=== PATIENT | male | born 1985 | race African-American/Black ===

== ENCOUNTER 2022-03-13 17:53 | Inpatient (IN) | payer OTHER, SELFPAY ==
[2022-03-13 18:20] VITALS: BP 121/75; PULSE 103; TEMP 36.2
[2022-03-13 18:34] VITALS: BMI 24.4
[2022-03-13] MEDS: risperiDONE 0.5 MG TABLET 1.5 MG PO (21:58)
[2022-03-13] MEDS: traZODone HCL 50 MG TABLET PO (21:58)
--- NOTE | 2022-03-14 01:08 | PC.ADMIT ---
A single, 37 year old, Icelandic-speaking, male [facility] at 1815 following referral from [facility] and [facility] ED. Pt has a history of IPLOC at [facility] in 2011. Pt presented to [facility] ED on 03/10/22 with respiratory complaints of SOB and minimal Etoh misuse. Pt later c/o SI and HI with access to a gun. Pt was determined to need IPLOC. Pt was reassessed by [facility] after bed search was exhausted. Pt was oriented to person, place, situation. During his admission pt was unable to state his date of , saying I forget . Pt rated depression 0/10 and anxiety 5/10. Pt denied pain. Pt denied SI/HI after hesitating about HI. Pt would not say more about HI. Pt endorses auditory hallucinations of voices that command self harm at times. Pt says he can tell what is real and what is not. Pt denies VH. Pt reports a past history of self harm including burning self with cigarettes and cutting wrist. Pt denies current impulses to self harm. Pt says can seek out staff if having SI/HI or urges to self harm. Pt has been homeless off and on for several years and has been homeless for the past several months. Pt reports would like to get out of homelessness. Pt does not have a PCP, therapist of psychiatric medication prescriber. Pt has taken risperdal in the community and pt stated it has helped when at the right dosage. Pt reports mouth movements for a couple years and muscular tension that results in leg movements. Pt was calm and cooperative during admission though appeared fatigued. Medical issues include: non-insulin dependent diabetes for which pt says takes metformin. Pt reports he has SOB and thought may have asthma or COPD. Pt is a daily, one pack a day, cigarette smoker of 22 years who would like nicotine lozenge and nicotine patch ordered. [id number] done, admission orders obtained, safety tool and initial treatment plan done. Pt is resting in room on 15 minute safety checks at this time.
[2022-03-14 08:12] VITALS: BP 103/71; PULSE 88; RESP 16; TEMP 36.4; O2SAT 99
[2022-03-14] MEDS: Acetaminophen 325 MG TABLET 650 MG PO ×2 (08:44→15:38)
[2022-03-14 08:56] LABS: Estimated Average Glucose 212 mg/dL
[2022-03-14 09:18] LABS: Cholesterol 169 mg/dL; HDL Cholesterol 38 mg/dL; LDL Cholesterol Calculated 91 mg/dl; Magnesium 1.9 mg/dL (1.6-2.6); Triglycerides 200 mg/dL
[2022-03-14 09:40] LABS: Free T4 (Free Thyroxine) 0.98 ng/dL (0.71-1.85); Thyroid Stimulating Hormone 0.77 uIU/mL (0.32-4.0)
[2022-03-14 10:18] LABS: Folate 9.9 ng/mL (> or = 4.0); Vitamin B12 618 pg/mL (200-900)
[2022-03-14 17:12] VITALS: BP 119/67; PULSE 85; RESP 16; TEMP 36.1; O2SAT 97
--- NOTE | 2022-03-14 18:58 | HO.PSYADMNOT ---
HPI Date of Service: 03/14/22 Chief Complaint: Schizophrenia Sources of Information: patient interviewed, chart reviewed and crisis/core team assessment reviewed HPI Subjective Notes: Strange Warning Healthcare Proxy: No Guardianship: No Medical Problems Affecting Mental Status: No Narrative: Luan is a 37 y.o. male who carries a dx of schizophrenia. He presented to [facility] ED on 03/10/2022 due to SI and HI with access to a gun, threatened to shoot himself (brother lives in [place] and has a fun). Pt endorsed sx of depression and anxiety. During evaluation he presented as internally preoccupied and disclosed AH. Has been adherent on Risperdal 1 mg and this was increased to 1.5 mg QHS at [facility]. However, has long history of med non-adherence and was previously on Risperdal up to 4 mg daily (last fill 07/2021). Utox positive for cocaine. EKG showed NSR, QTc 393. Per SCOOTER whittaker, pt initially presented to [facility] ED on 03/10/22 via ambulance after he called 911 at [facility] due to SOB. He reported passive SI and HI. Pt is homeless, was at [facility]. He was re-assessed on 03/13/22 due to reporting SI and AH telling him to harm himself and that ?they are listening.? Reviewed past notes, pt has hx of presenting to crisis with self dialoging, waking up at night and yelling at the top of his voice obscene language. Past Psychiatric History: -Hx of IPLOC at [facility] (dates unknown), hx of decompensation in the context of non-adherence. Medical Evaluation Reviewed: Yes [facility] Family History: -Bio mom: schizophrenia -Bio dad: alcohol use disorder Social History: -Born and raised in [place], [place], has bio parents and sister. Substance History: -Cocaine: last used 03/09/2022 Diagnostics Vital Signs (24Hr): Vital Signs - 24 hr 03/14/22 08:12 03/14/22 17:12 Temperature 97.6 F 97 F Pulse Rate 88 85 Respiratory Rate 16 16 Blood Pressure 103/71 119/67 Pulse Oximetry 99 97 Oxygen Delivery Method Room Air Room Air BMI result Body Mass Index 24.4 Labs Labs: Laboratory Results - last 48 hr 03/14/22 03/14/22 03/14/22 08:10 08:10 08:10 Estimat Average Glucose 212 Hemoglobin A1c % 9.0 Magnesium 1.9 Triglycerides 200 Cholesterol 169 LDL Cholesterol, Calc 91 HDL Cholesterol 38 Vitamin B12 618 Folate 9.9 TSH 0.77 Free T4 0.98 Meds/Allergies Allergies Allergies Allergy/AdvReac Type Severity Reaction Status Date / Time codeine AdvReac Unknown Verified 03/13/22 18:33 Mental Status Exam Mental Status Exam Narrative: Pt is asleep, declines interview. Guarded, difficult to engage. No psychomotor agitation. Denies SI/SIB/HI upon inquiry. Endorses AH, denies VH, paranoid delusional thought content. Thoughts are disorganized, internally preoccupied. No known cognitive or memory impairment. Insight/ Judgment poor. Assessment & Plan Assessment & Plan (1) Schizophrenia, chronic condition: Status: Acute Code(s): F20.9 - Schizophrenia, unspecified Plan Luan is a 37 y.o. male who carries a dx of schizophrenia. He presented to [facility] ED on 03/10/2022 due to SI and HI with access to a gun, threatened to shoot himself (brother lives in [place] and has a fun). Pt endorsed sx of depression and anxiety. During evaluation he presented as internally preoccupied and disclosed AH. Has been adherent on Risperdal 1 mg and this was increased to 1.5 mg QHS at [facility]. However, has long history of med non-adherence and was previously on Risperdal up to 4 mg daily (last fill 07/2021). Utox positive for cocaine. EKG showed NSR, QTc 393. Plan: Increase risperdal to 2 mg HS and 1 mg daily for psychotic sx. Obtain collateral contacts. Continue assessment and engagement. Q15 min safety checks, CV Monitor response to medications. Monitor for safety in the milieu. Discharge on stabilization. Patient seen. Chart reviewed. Discussed with team. Obtain collateral contact info?as needed Patient educated on: diagnosis, medication risk/benefits and therapeutic strategies Reason for continued inpatient stay Substantial Risk for: inability to function, rapid decompensation and med/psych decompensation
[2022-03-14] MEDS: risperiDONE 0.5 MG TABLET 1.5 MG PO (19:15)
[2022-03-14] MEDS: Nicotine 21 MG PATCH.TD24 TRANSDERMA (19:16)
[2022-03-15 08:19] VITALS: BP 102/64; PULSE 76; RESP 16; TEMP 36.6; O2SAT 99
[2022-03-15] MEDS: Nicotine 21 MG PATCH.TD24 TRANSDERMA (08:30)
[2022-03-15] MEDS: risperiDONE 1 MG TABLET PO (08:30)
[2022-03-15] MEDS: Acetaminophen 325 MG TABLET 650 MG PO ×2 (08:31→14:21)
[2022-03-15] MEDS: hydrOXYzine HCL 25 MG TABLET PO (08:33)
[2022-03-15 09:26] LABS: Estimated Average Glucose 214 mg/dL; Hemoglobin A1c % 9.1 %
[2022-03-15 09:47] LABS: Cholesterol 177 mg/dL; HDL Cholesterol 42 mg/dL; LDL Cholesterol Calculated 95 mg/dl; Magnesium 1.8 mg/dL (1.6-2.6); Triglycerides 201 mg/dL
[2022-03-15 10:37] LABS: Folate 11.6 ng/mL (> or = 4.0); Vitamin B12 708 pg/mL (200-900)
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
[2022-03-15] MEDS: risperiDONE 2 MG TABLET PO (22:10)
[2022-03-15] MEDS: LORazepam 1 MG TABLET 2 MG PO (23:47)
[2022-03-15] MEDS: HaloperidoL 5 MG TABLET PO (23:47)
[2022-03-16 06:00] VITALS: BP 132/90; PULSE 101; TEMP 36.6; O2SAT 98
[2022-03-16] MEDS: Nicotine 21 MG PATCH.TD24 TRANSDERMA (09:05)
[2022-03-16] MEDS: risperiDONE 1 MG TABLET PO (09:06)
--- NOTE | 2022-03-16 09:23 | HO.PSYCHPN ---
Subjective Subjective Date of Service: 03/16/22 Reason For Visit: Schizophrenia Interim History: Patient wearing towel on his head. Cooperative though distracted and seems internally preoccupied Patient reports that mood is better and that he is all right. Denies SI or HI. Auditory hallucinations remain however they are less and he feels a getting more able to ignore them. Has some trouble sleeping and says that he has been diagnosed with sleep apnea in the past but does not a CPAP. He also agrees to clonidine at bedtime to help with anxiety. To consolidate medications agrees to make Risperdal at bedtime. During the day patient says that hydroxyzine has been helpful and asks for it to be increased a bit. Mental Status Exam Mental Status Exam Narrative: Pt is alert and oriented; behavior is cooperative, distracted, calm; patient is not in distress; dressed in casual attire wearing a towel around his head, adequate hygiene; mood is described as all right and affect a little blunted, distracted; eye contact appropriate; Speech is with some latency; can be normal rate, volume and prosody and not pressured; psychomotor retardation present; thought process is goal directed but interfered with by some thought blocking; Thought content is on tx, dealing with symptoms; otherwise pertinent to relevant topics; denies delusional content, paranoid ideations; denies any SI/HI. Patient does appear to be internally preoccupied; continues to have auditory hallucinations however they have lessened in intensity. Patients insight and judgment are impaired but adequate. Diagnostics Vital Signs (24Hr): BMI result Body Mass Index 24.4 Labs Labs: Laboratory Results - last 48 hr 03/14/22 03/14/22 03/15/22 08:10 08:10 08:54 Estimat Average Glucose 214 Hemoglobin A1c % 9.1 Magnesium Triglycerides Cholesterol LDL Cholesterol, Calc HDL Cholesterol Vitamin B12 618 Folate 9.9 TSH 0.77 Free T4 0.98 03/15/22 03/15/22 08:54 08:54 Estimat Average Glucose Hemoglobin A1c % Magnesium 1.8 Triglycerides 201 Cholesterol 177 LDL Cholesterol, Calc 95 HDL Cholesterol 42 Vitamin B12 708 Folate 11.6 TSH 0.70 Free T4 Medications Medications Current Medications Acetaminophen (Acetaminophen 325 Mg Tablet) 650 mg PO Q6H PRN PRN Reason: Headache/Pain Mild Scale (1-3) Last Admin: 03/15/22 14:21 Dose: 650 mg Al Hydroxide/Mg Hydroxide (Magnesium Hydrox/Alum Hydrox 30 Ml Oral.Susp) 30 ml PO Q6H PRN PRN Reason: Heartburn/Nausea Diphenhydramine HCl (Diphenhydramine Hcl 25 Mg Capsule) 50 mg PO Q6H PRN PRN Reason: agitation Haloperidol (Haloperidol 5 Mg Tablet) 5 mg PO Q6H PRN PRN Reason: agitation, psychosis Last Admin: 03/15/22 23:47 Dose: 5 mg Hydroxyzine HCl (Hydroxyzine Hcl 25 Mg Tablet) 25 mg PO Q6H PRN PRN Reason: Anxiety Last Admin: 03/15/22 08:33 Dose: 25 mg Lorazepam (Lorazepam 1 Mg Tablet) 2 mg PO Q6H PRN PRN Reason: agitation, only with haldol Last Admin: 03/15/22 23:47 Dose: 2 mg Magnesium Hydroxide (Milk Of Magnesia 30 Ml Oral.Susp) 30 ml PO DAILY PRN PRN Reason: Constipation Nicotine (Nicotine 21 Mg Patch.Td24) 21 mg TRANSDERMA DAILY [facility] Last Admin: 03/16/22 09:05 Dose: 21 mg Nicotine Polacrilex (Nicotine Polacrilex 2 Mg Gum) 4 mg BUCCAL Q2H PRN PRN Reason: nicotine withdrawal Risperidone (Risperidone 2 Mg Tablet) 2 mg PO BEDTIME [facility] Last Admin: 03/15/22 22:10 Dose: 2 mg Risperidone (Risperidone 1 Mg Tablet) 1 mg PO DAILY [facility] Last Admin: 03/16/22 09:06 Dose: 1 mg Trazodone HCl (Trazodone Hcl 50 Mg Tablet) 50 mg PO BEDTIME PRN PRN Reason: Insomnia Last Admin: 03/13/22 21:58 Dose: 50 mg Allergies Allergies Allergy/AdvReac Type Severity Reaction Status Date / Time codeine AdvReac Unknown Verified 03/13/22 18:33 Assessment & Plan Assessment & Plan (1) Schizophrenia, chronic condition: Status: Acute Code(s): F20.9 - Schizophrenia, unspecified Plan Luan is a 37 y.o. male who carries a dx of schizophrenia. He presented to [facility] ED on 03/10/2022 due to SI and HI with access to a gun, threatened to shoot himself (brother lives in [place] and has a fun). Pt endorsed sx of depression and anxiety. During evaluation he presented as internally preoccupied and disclosed AH. Has been adherent on Risperdal 1 mg and this was increased to 1.5 mg QHS at [facility]. However, has long history of med non-adherence and was previously on Risperdal up to 4 mg daily (last fill 07/2021). Utox positive for cocaine. EKG showed NSR, QTc 393. 03/16 patient remains internally preoccupied, with thought blocking; reports continued auditory hallucinations however he says they have lessened in their intensity and he is working on ignoring them. Denies any SI or HI and says all those thoughts and feelings of fully resolved. Said mood is better. Although symptoms have improved, he remains with problematic level of symptoms and needs further titration of medication. PLAN: Q15 min safety checks, CV Risperdal 3 mg q.h.s. (consolidated to make medication adherence easier); will increase to 4 mg for continued psychotic symptoms Clonidine 0.1 mg q.h.s. for nighttime anxiety Monitor response to medications. Monitor for safety in the milieu. Discharge on stabilization. Patient seen. Chart reviewed. Discussed with team. Obtain collateral contact info?as needed I spent minutes with the patient and/or on the patient floor today, greater than?50% of which was spent counseling/coordinating care. Patient educated on: diagnosis and medication risk/benefits Informed Consent: understands and further education needed Reason for contiued inpatient stay Substantial Risk for: rapid decompensation
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
[2022-03-16 18:00] VITALS: RESP 16
[2022-03-16] MEDS: cloNIDine HCL 0.1 MG TABLET PO ×2 (18:45→19:41)
[2022-03-16] MEDS: Benztropine Mesylate 0.5 MG TABLET PO (19:40)
[2022-03-16] MEDS: risperiDONE 3 MG TABLET PO (19:41)
--- NOTE | 2022-03-17 08:34 | P.PNPSI_ITS ---
Subjective Subjective Date of Service: 03/17/22 Reason For Visit: Schizophrenia Interim History: Patient says that he is in a good mood. No SI no HI. AH remains but he says he has mostly able to ignore them. He sleep in well enough at night. Patient says he would like to go to the [facility] in if possible. D[employer] discussed long- acting injectable but patient declines Mental Status Exam Mental Status Exam Narrative: Pt is alert and oriented; behavior is cooperative, distracted, calm; patient is not in distress; dressed in casual attire wearing a towel around his head, adequate hygiene; mood is described as good and affect a little blunted, distracted; eye contact appropriate; Speech is normal rate and no longer with latency; normal volume and prosody and not pressured; mild psychomotor retardation present; thought process is goal directed; little to no thought blocking; Thought content is on tx, plans post discharge, dealing with symptoms; otherwise pertinent to relevant topics; denies delusional content, paranoid ideations; denies any SI/HI. Patient does not appear internally preoccupied; continues to have auditory hallucinations however they have lessened in intensity and can be ignored. Patients insight and judgment are impaired but adequate. Diagnostics Vital Signs (24Hr): Vital Signs - 24 hr 03/16/22 18:00 Respiratory Rate 16 BMI result Body Mass Index 24.4 Labs Labs: Laboratory Results - last 48 hr 03/15/22 03/15/22 03/15/22 08:54 08:54 08:54 Estimat Average Glucose 214 Hemoglobin A1c % 9.1 Magnesium 1.8 Triglycerides 201 Cholesterol 177 LDL Cholesterol, Calc 95 HDL Cholesterol 42 Vitamin B12 708 Folate 11.6 TSH 0.70 Medications Medications Current Medications Acetaminophen (Acetaminophen 325 Mg Tablet) 650 mg PO Q6H PRN PRN Reason: Headache/Pain Mild Scale (1-3) Last Admin: 03/15/22 14:21 Dose: 650 mg Al Hydroxide/Mg Hydroxide (Magnesium Hydrox/Alum Hydrox 30 Ml Oral.Susp) 30 ml PO Q6H PRN PRN Reason: Heartburn/Nausea Benztropine Mesylate (Benztropine Mesylate 0.5 Mg Tablet) 0.5 mg PO BID ASHLEY Last Admin: 03/16/22 19:40 Dose: 0.5 mg Clonidine HCl (Clonidine Hcl 0.1 Mg Tablet) 0.1 mg PO BEDTIME ASHLEY; Protocol Last Admin: 03/16/22 19:41 Dose: 0.1 mg Clonidine HCl (Clonidine Hcl 0.1 Mg Tablet) 0.1 mg PO Q4H PRN; Protocol PRN Reason: anxiety Hydroxyzine HCl (Hydroxyzine Hcl 50 Mg Tablet) 50 mg PO Q4H PRN PRN Reason: Anxiety Magnesium Hydroxide (Milk Of Magnesia 30 Ml Oral.Susp) 30 ml PO DAILY PRN PRN Reason: Constipation Multi-Ingred Cream/Lotion/Oil/Oint (Mineral Oil/Petrolatum,White 106 Gm Tube) 1 appl TOPICAL TID PRN; Protocol PRN Reason: dry skin Nicotine (Nicotine 21 Mg Patch.Td24) 21 mg TRANSDERMA DAILY [facility] Last Admin: 03/16/22 09:05 Dose: 21 mg Nicotine Polacrilex (Nicotine Polacrilex 2 Mg Gum) 4 mg BUCCAL Q2H PRN PRN Reason: nicotine withdrawal Risperidone (Risperidone 3 Mg Tablet) 3 mg PO BEDTIME ASHLEY Last Admin: 03/16/22 19:41 Dose: 3 mg Trazodone HCl (Trazodone Hcl 50 Mg Tablet) 50 mg PO BEDTIME PRN PRN Reason: Insomnia Last Admin: 03/13/22 21:58 Dose: 50 mg Allergies Allergies Allergy/AdvReac Type Severity Reaction Status Date / Time codeine AdvReac Unknown Verified 03/13/22 18:33 Assessment & Plan Assessment & Plan (1) Schizophrenia, chronic condition: Status: Acute Code(s): F20.9 - Schizophrenia, unspecified Plan Luan is a 37 y.o. male who carries a dx of schizophrenia. He presented to [facility] ED on 03/10/2022 due to SI and HI with access to a gun, threatened to shoot himself (brother lives in [place] and has a fun). Pt endorsed sx of depression and anxiety. During evaluation he presented as internally preoccupied and disclosed AH. Has been adherent on Risperdal 1 mg and this was increased to 1.5 mg QHS at [facility]. However, has long history of med non-adherence and was previously on Risperdal up to 4 mg daily (last fill 07/2021). Utox positive for cocaine. EKG showed NSR, QTc 393. 03/16 patient remains internally preoccupied, with thought blocking; reports continued auditory hallucinations however he says they have lessened in their intensity and he is working on ignoring them. Denies any SI or HI and says all those thoughts and feelings of fully resolved. Said mood is better. Although symptoms have improved, he remains with problematic level of symptoms and needs further titration of medication. 03/17 patient is improving and no longer has speech latency or obvious thought blocking; still has AH but he says they continue to listen and is able to ignore them; no SI or HI and overall in good mood, future oriented, talking about where he wants to go and hoping to get a job PLAN: Q15 min safety checks, CV Risperdal 4 mg q.h.s. (consolidated to make medication adherence easier); will increase to 4 mg for continued psychotic symptoms and as this was previous outpatient dose Clonidine 0.1 mg q.h.s. for nighttime anxiety Monitor response to medications. Monitor for safety in the milieu. Discharge on stabilization. Patient seen. Chart reviewed. Discussed with team. Obtain collateral contact info?as needed I spent minutes with the patient and/or on the patient floor today, greater than?50% of which was spent counseling/coordinating care. Patient educated on: diagnosis and medication risk/benefits Informed Consent: understands Reason for contiued inpatient stay Substantial Risk for: stable for discharge
[2022-03-17] MEDS: Benztropine Mesylate 0.5 MG TABLET PO ×2 (09:29→19:37)
[2022-03-17 14:00] VITALS: BP 135/66; PULSE 86; TEMP 36.1
[2022-03-17 17:22] VITALS: BP 124/80; PULSE 77; RESP 16; TEMP 36.6; O2SAT 98
[2022-03-17] MEDS: risperiDONE 2 MG TABLET 4 MG PO (19:36)
[2022-03-17] MEDS: cloNIDine HCL 0.1 MG TABLET PO (19:37)
[2022-03-17] MEDS: traZODone HCL 50 MG TABLET PO (19:37)
[2022-03-18] MEDS: Acetaminophen 325 MG TABLET 650 MG PO (02:30)
[2022-03-18 06:00] VITALS: BP 113/69; PULSE 83; RESP 18
[2022-03-18] MEDS: Benztropine Mesylate 0.5 MG TABLET PO ×2 (09:18→20:16)
--- NOTE | 2022-03-18 12:02 | P.PNPSI_ITS ---
Subjective Subjective Date of Service: 03/18/22 Reason For Visit: Schizophrenia Interim History: Patient says that he is in a good mood. No SI no HI. He is difficult to engage and guarded. He denies any complaints. Per nursing he appears to respond to internal stimuli. Behavior controlled on the unit. Review of Systems Review of Systems Yes all other systems are reviewed and are negative Mental Status Exam Mental Status Exam Narrative: Pt is alert and oriented; behavior is cooperative, distracted, calm; patient is not in distress; dressed in casual attire wearing a towel around his head, adequate hygiene; mood is described as good and affect a little blunted, distracted; eye contact appropriate; Speech is normal rate and no longer with latency; normal volume and prosody and not pressured; mild psychomotor retardation present; thought process is goal directed; little to no thought blocking; Thought content is on tx, plans post discharge, dealing with symptoms; otherwise pertinent to relevant topics; denies delusional content, paranoid ideations; denies any SI/HI. Patient does not appear internally preoccupied; continues to have auditory hallucinations however they have lessened in intensity and can be ignored. Patients insight and judgment are impaired but adequate. Diagnostics Vital Signs (24Hr): Vital Signs - 24 hr 03/17/22 14:00 03/17/22 17:22 03/18/22 06:00 Temperature 97 F 98 F Pulse Rate 86 77 83 Respiratory Rate 16 18 Blood Pressure 135/66 124/80 113/69 Pulse Oximetry 98 Oxygen Delivery Method Room Air BMI result Body Mass Index 24.4 Medications Medications Current Medications Acetaminophen (Acetaminophen 325 Mg Tablet) 650 mg PO Q6H PRN PRN Reason: Headache/Pain Mild Scale (1-3) Last Admin: 03/18/22 02:30 Dose: 650 mg Al Hydroxide/Mg Hydroxide (Magnesium Hydrox/Alum Hydrox 30 Ml Oral.Susp) 30 ml PO Q6H PRN PRN Reason: Heartburn/Nausea Benztropine Mesylate (Benztropine Mesylate 0.5 Mg Tablet) 0.5 mg PO BID ASHLEY Last Admin: 03/18/22 09:18 Dose: 0.5 mg Clonidine HCl (Clonidine Hcl 0.1 Mg Tablet) 0.1 mg PO BEDTIME ASHLEY; Protocol Last Admin: 03/17/22 19:37 Dose: 0.1 mg Clonidine HCl (Clonidine Hcl 0.1 Mg Tablet) 0.1 mg PO Q4H PRN; Protocol PRN Reason: anxiety Hydroxyzine HCl (Hydroxyzine Hcl 50 Mg Tablet) 50 mg PO Q4H PRN PRN Reason: Anxiety Magnesium Hydroxide (Milk Of Magnesia 30 Ml Oral.Susp) 30 ml PO DAILY PRN PRN Reason: Constipation Multi-Ingred Cream/Lotion/Oil/Oint (Mineral Oil/Petrolatum,White 106 Gm Tube) 1 appl TOPICAL TID PRN; Protocol PRN Reason: dry skin Nicotine (Nicotine 21 Mg Patch.Td24) 21 mg TRANSDERMA DAILY [facility] Last Admin: 03/18/22 09:19 Dose: Not Given Nicotine Polacrilex (Nicotine Polacrilex 2 Mg Gum) 4 mg BUCCAL Q2H PRN PRN Reason: nicotine withdrawal Risperidone (Risperidone 2 Mg Tablet) 4 mg PO BEDTIME [facility] Last Admin: 03/17/22 19:36 Dose: 4 mg Trazodone HCl (Trazodone Hcl 50 Mg Tablet) 50 mg PO BEDTIME PRN PRN Reason: Insomnia Last Admin: 03/17/22 19:37 Dose: 50 mg Allergies Allergies Allergy/AdvReac Type Severity Reaction Status Date / Time codeine AdvReac Unknown Verified 03/13/22 18:33 Assessment & Plan Assessment & Plan (1) Schizophrenia, chronic condition: Status: Acute Code(s): F20.9 - Schizophrenia, unspecified Plan Luan is a 37 y.o. male who carries a dx of schizophrenia. He presented to [facility] ED on 03/10/2022 due to SI and HI with access to a gun, threatened to shoot himself (brother lives in [place] and has a fun). Pt endorsed sx of depression and anxiety. During evaluation he presented as internally preoccupied and disclosed AH. Has been adherent on Risperdal 1 mg and this was increased to 1.[address] [facility]. However, has long history of med non-adherence and was previously on Risperdal up to 4 mg daily (last fill 07/2021). Utox positive for cocaine. EKG showed NSR, QTc 393. 03/16 patient remains internally preoccupied, with thought blocking; reports continued auditory hallucinations however he says they have lessened in their intensity and he is working on ignoring them. Denies any SI or HI and says all those thoughts and feelings of fully resolved. Said mood is better. Although symptoms have improved, he remains with problematic level of symptoms and needs further titration of medication. 03/17 patient is improving and no longer has speech latency or obvious thought blocking; still has AH but he says they continue to listen and is able to ignore them; no SI or HI and overall in good mood, future oriented, talking about where he wants to go and hoping to get a job 03/18: Continue current treatment plan. PLAN: Q15 min safety checks, CV Risperdal 4 mg q.h.s. (consolidated to make medication adherence easier); will increase to 4 mg for continued psychotic symptoms and as this was previous outpatient dose Clonidine 0.1 mg q.h.s. for nighttime anxiety Monitor response to medications. Monitor for safety in the milieu. Discharge on stabilization. Patient seen. Chart reviewed. Discussed with team. Obtain collateral contact info?as needed I spent minutes with the patient and/or on the patient floor today, greater than?50% of which was spent counseling/coordinating care. Reason for contiued inpatient stay Substantial Risk for: inability to function and rapid decompensation
[2022-03-18 18:00] VITALS: BP 123/77; PULSE 74; RESP 18; O2SAT 98
[2022-03-18] MEDS: cloNIDine HCL 0.1 MG TABLET PO (20:16)
[2022-03-18] MEDS: risperiDONE 2 MG TABLET 4 MG PO (20:16)
[2022-03-19 08:25] VITALS: BP 118/64; PULSE 67; RESP 16; TEMP 36.7; O2SAT 99
[2022-03-19] MEDS: Benztropine Mesylate 0.5 MG TABLET PO ×2 (09:04→21:57)
[2022-03-19] MEDS: Mineral Oil/Petrolatum,White 106 GM Tube 1 APPL TOPICAL (10:12)
--- NOTE | 2022-03-19 14:55 | HO.PSYCHPN ---
Subjective Subjective Date of Service: 03/19/22 Reason For Visit: Schizophrenia Interim History: Patient says that he is in a good mood. No SI no HI. Wondering when can he be discharged. Says he would go to a long term. Patient is calm generally and med compliant. He is heard self dialoguing in his room and laughing inappropriately at times responding to internal stimuli. He is difficult to engage and guarded. He denies any complaints. Behavior controlled on the unit. Medication Compliance: Yes Review of Systems Review of Systems Yes all other systems are reviewed and are negative Mental Status Exam Mental Status Exam Narrative: Pt is alert and oriented; behavior is cooperative, distracted, calm; patient is not in distress; dressed in casual attire wearing a towel around his head, adequate hygiene; mood is described as good and affect a little blunted, distracted; eye contact appropriate; Speech is normal rate and no longer with latency; normal volume and prosody and not pressured; mild psychomotor retardation present; thought process is goal directed; little to no thought blocking; Thought content is on tx, plans post discharge, dealing with symptoms; otherwise pertinent to relevant topics; denies delusional content, paranoid ideations; denies any SI/HI. Patient does not appear internally preoccupied; continues to have auditory hallucinations however they have lessened in intensity and can be ignored. Patients insight and judgment are impaired but adequate. Diagnostics Vital Signs (24Hr): Vital Signs - 24 hr 03/19/22 08:25 03/19/22 19:48 Temperature 98.1 F Pulse Rate 67 113 H Respiratory Rate 16 Blood Pressure 118/64 120/61 Pulse Oximetry 99 Oxygen Delivery Method Room Air BMI result Body Mass Index 24.4 Medications Medications Current Medications Acetaminophen (Acetaminophen 325 Mg Tablet) 650 mg PO Q6H PRN PRN Reason: Headache/Pain Mild Scale (1-3) Last Admin: 03/18/22 02:30 Dose: 650 mg Al Hydroxide/Mg Hydroxide (Magnesium Hydrox/Alum Hydrox 30 Ml Oral.Susp) 30 ml PO Q6H PRN PRN Reason: Heartburn/Nausea Benztropine Mesylate (Benztropine Mesylate 0.5 Mg Tablet) 0.5 mg PO BID ASHLEY Last Admin: 03/19/22 09:04 Dose: 0.5 mg Clonidine HCl (Clonidine Hcl 0.1 Mg Tablet) 0.1 mg PO BEDTIME ASHLEY; Protocol Last Admin: 03/18/22 20:16 Dose: 0.1 mg Clonidine HCl (Clonidine Hcl 0.1 Mg Tablet) 0.1 mg PO Q4H PRN; Protocol PRN Reason: anxiety Last Admin: 03/19/22 18:18 Dose: 0.1 mg Hydroxyzine HCl (Hydroxyzine Hcl 50 Mg Tablet) 50 mg PO Q4H PRN PRN Reason: Anxiety Last Admin: 03/19/22 18:17 Dose: 50 mg Magnesium Hydroxide (Milk Of Magnesia 30 Ml Oral.Susp) 30 ml PO DAILY PRN PRN Reason: Constipation Multi-Ingred Cream/Lotion/Oil/Oint (Mineral Oil/Petrolatum,White 106 Gm Tube) 1 appl TOPICAL TID PRN; Protocol PRN Reason: dry skin Last Admin: 03/19/22 10:12 Dose: 1 appl Nicotine (Nicotine 21 Mg Patch.Td24) 21 mg TRANSDERMA DAILY [facility] Last Admin: 03/19/22 09:16 Dose: Not Given Nicotine Polacrilex (Nicotine Polacrilex 2 Mg Gum) 4 mg BUCCAL Q2H PRN PRN Reason: nicotine withdrawal Risperidone (Risperidone 2 Mg Tablet) 4 mg PO BEDTIME ASHLEY Last Admin: 03/18/22 20:16 Dose: 4 mg Trazodone HCl (Trazodone Hcl 50 Mg Tablet) 50 mg PO BEDTIME PRN PRN Reason: Insomnia Last Admin: 03/17/22 19:37 Dose: 50 mg Allergies Allergies Allergy/AdvReac Type Severity Reaction Status Date / Time codeine AdvReac Unknown Verified 03/13/22 18:33 Assessment & Plan Assessment & Plan (1) Schizophrenia, chronic condition: Status: Acute Code(s): F20.9 - Schizophrenia, unspecified Plan Luan is a 37 y.o. male who carries a dx of schizophrenia. He presented to [facility] ED on 03/10/2022 due to SI and HI with access to a gun, threatened to shoot himself (brother lives in [place] and has a fun). Pt endorsed sx of depression and anxiety. During evaluation he presented as internally preoccupied and disclosed AH. Has been adherent on Risperdal 1 mg and this was increased to 1.5 mg QHS at [facility]. However, has long history of med non-adherence and was previously on Risperdal up to 4 mg daily (last fill 07/2021). Utox positive for cocaine. EKG showed NSR, QTc 393. 03/16 patient remains internally preoccupied, with thought blocking; reports continued auditory hallucinations however he says they have lessened in their intensity and he is working on ignoring them. Denies any SI or HI and says all those thoughts and feelings of fully resolved. Said mood is better. Although symptoms have improved, he remains with problematic level of symptoms and needs further titration of medication. 03/17 patient is improving and no longer has speech latency or obvious thought blocking; still has AH but he says they continue to listen and is able to ignore them; no SI or HI and overall in good mood, future oriented, talking about where he wants to go and hoping to get a job 03/18: Continue current treatment plan. 03/19: Continue current treatment plan. PLAN: Q15 min safety checks, CV Risperdal 4 mg q.h.s. (consolidated to make medication adherence easier); will increase to 4 mg for continued psychotic symptoms and as this was previous outpatient dose Clonidine 0.1 mg q.h.s. for nighttime anxiety Monitor response to medications. Monitor for safety in the milieu. Discharge on stabilization. Patient seen. Chart reviewed. Discussed with team. Obtain collateral contact info?as needed I spent minutes with the patient and/or on the patient floor today, greater than?50% of which was spent counseling/coordinating care. Reason for contiued inpatient stay Substantial Risk for: inability to function and rapid decompensation
--- NOTE | 2022-03-19 17:25 | PC.NURSE ---
Pt submitted a Three Day Notice on Monday 03/19 up on Thursday 03/22.
[2022-03-19] MEDS: hydrOXYzine HCL 50 MG TABLET PO (18:17)
[2022-03-19] MEDS: cloNIDine HCL 0.1 MG TABLET PO ×2 (18:18→21:56)
[2022-03-19 19:48] VITALS: BP 120/61; PULSE 113
[2022-03-19] MEDS: risperiDONE 2 MG TABLET 4 MG PO (21:57)
[2022-03-20 06:00] VITALS: BP 111/73; PULSE 85; RESP 18; TEMP 36.6; O2SAT 96
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
[2022-03-20] MEDS: Benztropine Mesylate 0.5 MG TABLET PO (08:56)
[2022-03-20] MEDS: Nicotine 21 MG PATCH.TD24 TRANSDERMA (08:56)
--- NOTE | 2022-03-20 13:15 | PC.NURSE ---
Patient was given one single use dose of Naltrexone for PRN use post discharge.
== END 2022-03-20 13:40 | disposition home or self-care (01) | DRG 750 ==
PROVIDERS: Registered Nurse; Admitting Provider Psychiatry & Neurology Psychiatry; Visit Provider Psychiatry & Neurology Psychiatry
DX: F20.9 Schizophrenia, unspecified (principal); R45.851 Suicidal ideations; R45.850 Homicidal ideations; Z59.02 Unsheltered homelessness; F17.210 Nicotine dependence, cigarettes, uncomplicated; Z71.6 Tobacco abuse counseling; Z88.5 Allergy status to narcotic agent; Z79.899 Other long term (current) drug therapy
CPT/HCPCS: 36415; 80061; 82607; 82746; 83036; 83735; 84439; 84443; 90792

== ENCOUNTER 2022-07-22 13:31 | Inpatient (IN) | payer OTHER, SELFPAY ==
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
[2022-07-22] MEDS: traZODone HCL 50 MG TABLET PO (20:50)
[2022-07-22] MEDS: hydrOXYzine HCL 25 MG TABLET PO (20:50)
[2022-07-22] MEDS: Acetaminophen 325 MG TABLET 650 MG PO (20:50)
[2022-07-23] MEDS: Acetaminophen 325 MG TABLET 650 MG PO ×2 (07:39→16:26)
[2022-07-23 08:06] LABS: Glucose, Whole Blood 506 mg/dL (60-115)
[2022-07-23 08:12] LABS: Alanine Aminotransferase 19 U/L (0-40); Albumin Level 3.8 g/dL (3.5-5.0); Alkaline Phosphatase 37 U/L (39-117); Anion Gap 14 (12-20); Aspartate Amino Transferase 9 U/L (5-37); Bilirubin Total 0.3 mg/dL (0.0-1.0); Blood Urea Nitrogen 23 mg/dL (9-16); Calcium 9.4 mg/dL (8.4-10.2); Carbon Dioxide 26 mmol/L (22-29); Chloride 99 mmol/L (96-108); Cholesterol 167 mg/dL; Estimated Glomerular Filt Rate 59; Glucose Fasting 504 mg/dL (60-99); HDL Cholesterol 39 mg/dL; LDL Cholesterol Calculated 116 mg/dl; Potassium 4.7 mmol/L (3.3-5.1); Sodium 134 mmol/L (135-145); Total Protein 6.5 g/dL (6.5-8.0); Triglycerides 63 mg/dL
--- NOTE | 2022-07-23 08:35 | PC.NURSE ---
Pt's fasting POC was 506, NSM contacted to start pt on sliding scale. Pt rec'd 10 units per sliding scale protocol. Hospitalist Alvarez contacted, no add'l orders at this time.
[2022-07-23] MEDS: metFORMIN HCl 500 MG TABLET PO ×2 (09:41→17:33)
[2022-07-23] MEDS: Insulin Glargine,Hum.rec.anlog 100 UNIT/ML 10 ML VIAL 15 UNIT SUBCUT ×2 (09:41→21:43)
[2022-07-23 09:46] VITALS: BP 101/74; PULSE 107; RESP 16; TEMP 36.1; O2SAT 97
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
[2022-07-23 12:48] LABS: Glucose, Whole Blood 461 mg/dL (60-115)
--- NOTE | 2022-07-23 12:57 | PC.NURSE ---
Pt's pre-lunch POC 461. Notified Samantha Davis and Hospitalist Heraclio. Gave Insulin lispro 10 units per sliding scale plus additional 5 units lispro as prescribed. Per Heraclio no addition orders.
[2022-07-23] MEDS: Insulin Lispro 100 UNIT/ML 3 ML VIAL SUBCUT ×6 (12:59→21:45)
[2022-07-23] MEDS: hydrOXYzine HCL 25 MG TABLET PO (16:25)
--- NOTE | 2022-07-23 16:32 | PC.NURSE ---
Pt signed 3-day notice of intent to leave [facility] with staff at 1630.
[2022-07-23 17:16] LABS: Glucose, Whole Blood 391 mg/dL (60-115)
[2022-07-23] MEDS: metFORMIN HCl 1,000 MG TABLET 1000 MG PO (17:34)
[2022-07-23 21:20] VITALS: BP 98/54; PULSE 72; TEMP 36.9
[2022-07-23 21:30] LABS: Glucose, Whole Blood 296 mg/dL (60-115)
[2022-07-23] MEDS: Benztropine Mesylate 0.5 MG TABLET PO (21:42)
[2022-07-23] MEDS: risperiDONE 1 MG TABLET PO (21:42)
[2022-07-23] MEDS: cloNIDine HCL 0.1 MG TABLET PO (21:42)
[2022-07-24 07:56] LABS: Glucose, Whole Blood 320 mg/dL (60-115)
[2022-07-24] MEDS: metFORMIN HCl 1,000 MG TABLET 1000 MG PO (08:34)
[2022-07-24] MEDS: Benztropine Mesylate 0.5 MG TABLET PO ×3 (08:34→21:13)
[2022-07-24] MEDS: metFORMIN HCl 500 MG TABLET PO ×2 (08:34→17:35)
[2022-07-24] MEDS: Insulin Glargine,Hum.rec.anlog 100 UNIT/ML 10 ML VIAL 15 UNIT SUBCUT (08:36)
[2022-07-24] MEDS: Insulin Lispro 100 UNIT/ML 3 ML VIAL SUBCUT ×6 (08:37→21:15)
[2022-07-24 08:48] VITALS: BP 89/63; PULSE 89; RESP 18; TEMP 36.4; O2SAT 100
[2022-07-24 12:02] LABS: Glucose, Whole Blood 270 mg/dL (60-115)
--- NOTE | 2022-07-24 13:43 | HO.PSYCHPN ---
Subjective Subjective Date of Service: 07/24/22 Reason For Visit: Unspec Schizophrenia Spectrum and Other Psychotic Interim History: Met with patient; discussed in teams; reviewed covering provider notes; discussed diabetes management with hospitalist AARON Patient remains with auditory hallucinations which bother him though they are little bit better; he denies any SI or HI at all. Patient says he is sleeping better. Patient has placed a 3 day notice saying he would like to discharge to a care home and names to of them. Discussed cocaine abuse but patient is vague in says he does not think he has been using, though he UDS is positive. Patient does however agree to get on long-acting injectable Invega Sustenna given the fact that Risperdal has been well tolerated in the past and he says it has been helpful for resolving AH. Discussed diabetes diagnosis and medication management. Patient says he does want to have medications for diabetes. Mental Status Exam Mental Status Exam Narrative: Pt is alert and oriented; behavior is cooperative, distracted, calm; patient is not in distress; dressed in casual attire, disheveled cloths, but adequate hygiene; mood is described as ok and affect a little blunted; eye contact appropriate; Speech is a little soft, but normal rate and prosody; no psychomotor retardation present; thought process is goal directed; thought content is on treatment and discharge; otherwise pertinent to relevant topics; denies delusional content, paranoid ideations; denies any SI/HI. Patient intermittently appears as internally preoccupied; continues to have auditory hallucinations however they have lessened in intensity; Patients insight and judgment are impaired but adequate. Diagnostics Vital Signs (24Hr): Vital Signs - 24 hr 07/23/22 21:20 07/24/22 08:48 Temperature 98.4 F 97.5 F Pulse Rate 72 89 Respiratory Rate 18 Blood Pressure 98/54 L 89/63 L Pulse Oximetry 100 Oxygen Delivery Method Room Air Labs 07/23/22 07:25 Labs: Laboratory Results - last 48 hr 07/23/22 07/23/22 07/23/22 07:25 08:02 12:44 Sodium 134 L Potassium 4.7 Chloride 99 Carbon Dioxide 26 Anion Gap 14 BUN 23 H Creatinine 1.36 Estim Creat Clear Calc TNP Estimated GFR 59 POC Glucose 506 H* 461 H* Fasting Glucose 504 H* Calcium 9.4 Total Bilirubin 0.3 AST 9 ALT 19 Alkaline Phosphatase 37 L Total Protein 6.5 Albumin 3.8 Triglycerides 63 Cholesterol 167 LDL Cholesterol, Calc 116 HDL Cholesterol 39 07/23/22 07/23/22 07/24/22 17:11 21:26 07:52 Sodium Potassium Chloride Carbon Dioxide Anion Gap BUN Creatinine Estim Creat Clear Calc Estimated GFR POC Glucose 391 H* 296 H 320 H Fasting Glucose Calcium Total Bilirubin AST ALT Alkaline Phosphatase Total Protein Albumin Triglycerides Cholesterol LDL Cholesterol, Calc HDL Cholesterol 07/24/22 11:58 Sodium Potassium Chloride Carbon Dioxide Anion Gap BUN Creatinine Estim Creat Clear Calc Estimated GFR POC Glucose 270 H Fasting Glucose Calcium Total Bilirubin AST ALT Alkaline Phosphatase Total Protein Albumin Triglycerides Cholesterol LDL Cholesterol, Calc HDL Cholesterol Medications Medications Current Medications Acetaminophen (Acetaminophen 325 Mg Tablet) 650 mg PO Q6H PRN PRN Reason: Headache/Pain Mild Scale (1-3) Last Admin: 07/23/22 16:26 Dose: 650 mg Al Hydroxide/Mg Hydroxide (Magnesium Hydrox/Alum Hydrox 30 Ml Oral.Susp) 30 ml PO Q6H PRN PRN Reason: Heartburn/Nausea Benztropine Mesylate (Benztropine Mesylate 0.5 Mg Tablet) 0.5 mg PO BID [facility] Last Admin: 07/24/22 08:34 Dose: 0.5 mg Clonidine HCl (Clonidine Hcl 0.1 Mg Tablet) 0.1 mg PO BEDTIME [facility]; Protocol Last Admin: 07/23/22 21:42 Dose: 0.1 mg Hydroxyzine HCl (Hydroxyzine Hcl 25 Mg Tablet) 25 mg PO Q6H PRN PRN Reason: Anxiety Last Admin: 07/23/22 16:25 Dose: 25 mg Insulin Glargine (Insulin Glargine,Hum.Rec.Anlog 100 Unit/Ml 10 Ml Vial) 15 unit SUBCUT BID [facility] Last Admin: 07/24/22 08:36 Dose: 15 unit Insulin Human Lispro (Insulin Lispro 100 Unit/Ml 3 Ml Vial) 0 unit SUBCUT QIDACHS [facility]; Protocol Last Admin: 07/24/22 12:24 Dose: 6 unit Insulin Human Lispro (Insulin Lispro 100 Unit/Ml 3 Ml Vial) 5 unit SUBCUT QIDACHS [facility] Last Admin: 07/24/22 12:24 Dose: 5 unit Magnesium Hydroxide (Milk Of Magnesia 30 Ml Oral.Susp) 30 ml PO DAILY PRN PRN Reason: Constipation Metformin HCl (Metformin Hcl 500 Mg Tablet) 500 mg PO BIDWM [facility] Last Admin: 07/24/22 08:34 Dose: 500 mg Metformin HCl (Metformin Hcl 1,000 Mg Tablet) 1,000 mg PO BIDWM [facility] Last Admin: 07/24/22 08:34 Dose: 1,000 mg Nicotine Polacrilex (Nicotine Polacrilex 2 Mg Gum) 2 mg BUCCAL Q2H PRN PRN Reason: Nicotine Cravings Risperidone (Risperidone 1 Mg Tablet) 1 mg PO BEDTIME [facility] Last Admin: 07/23/22 21:42 Dose: 1 mg Trazodone HCl (Trazodone Hcl 50 Mg Tablet) 50 mg PO BEDTIME MRX1 PRN PRN Reason: Insomnia Last Admin: 07/22/22 20:50 Dose: 50 mg Allergies Allergies Allergy/AdvReac Type Severity Reaction Status Date / Time codeine AdvReac Unknown Verified 03/13/22 18:33 Assessment & Plan Assessment & Plan (1) Schizophrenia, chronic condition: Status: Acute Code(s): F20.9 - Schizophrenia, unspecified Assessment and Plan: resume medications might do better on injectable monthly med (2) Diabetes: Status: Acute Code(s): E11.9 - Type 2 diabetes mellitus without complications Assessment and Plan: restared metformin and still on sliding scale for now (3) Cannabis abuse: Status: Acute Code(s): F12.10 - Cannabis abuse, uncomplicated (4) Cocaine abuse: Status: Acute Code(s): F14.10 - Cocaine abuse, uncomplicated Plan Patient is a 37-year-old male with history of schizophrenia, cocaine/substance abuse, diabetes and history of lack of follow-up who presents for command auditory hallucinations, wanting treatment. Hospital course: 07/25 patient agrees to getting on Invega Sustenna; good behavioral and impulse control; denies any SI or HI Impression: Patient was restarted on Risperdal and Cogentin; agrees to long-acting injectable which is preferable given his long history of lack of follow-up and not adherence. Patient also started on medication for diabetes. Patient lives in itinerant, wondering lifestyle and seldom attends to follow up and it is unlikely that he will be able to follow current diabetic regimen; will work with hospitalist to simplify regimen to something that is achievable and with a better chance of adherence than current regimen. plan: 3 day notice Q 15 minute checks Given long-acting Invega Sustenna 234 mg IM on 07/24 Hospitalist notes: #Davila, bilateral hands -Appear old, well healing without infection -No intervention needed at this time -Moisturize hands and discourage pt from picking skin to prevent infection #Insulin dependent type 2 diabetes-with hyperglycemia -Hgb A1c 9.1 -Glucose levels remain uncontrolled -Increase lantus to 18 units BID -Continue SSI and metformin -POC glucose -Recommend diabetic diet #Diabetic neuropathy -Add gabapentin starting at 100mg TID, titrate as tolerated -Recommend pt wear shoes and socks. Was found with tape on bottom of feet which he was unaware of and could not feel me remove #Cardiomyopathy, suspect dilated given drug use -Recommend outpt echo and cards follow up -Monitor BP Patient educated on: diagnosis, medication risk/benefits, substance abuse and medical condition Informed Consent: understands and further education needed Reason for contiued inpatient stay Substantial Risk for: rapid decompensation Time Spent With Patient Time: Total time managing care of this patient today ____ minutes.
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
[2022-07-24] MEDS: Gabapentin 100 MG CAPSULE PO ×2 (15:38→21:13)
[2022-07-24] MEDS: Paliperidone Palmitate 234 MG/1.5 ML SYRINGE IM (15:44)
[2022-07-24 21:06] LABS: Glucose, Whole Blood 332 mg/dL (60-115)
[2022-07-24] MEDS: risperiDONE 1 MG TABLET PO (21:13)
[2022-07-24] MEDS: Insulin Glargine,Hum.rec.anlog 100 UNIT/ML 10 ML VIAL 18 UNIT SUBCUT (21:14)
[2022-07-25 06:00] VITALS: BP 112/60; PULSE 64; RESP 14; TEMP 36.1
[2022-07-25 08:07] LABS: Glucose, Whole Blood 277 mg/dL (60-115)
[2022-07-25] MEDS: Insulin Lispro 100 UNIT/ML 3 ML VIAL SUBCUT ×8 (08:35→20:10)
[2022-07-25] MEDS: Insulin Glargine,Hum.rec.anlog 100 UNIT/ML 10 ML VIAL 18 UNIT SUBCUT ×2 (08:35→19:17)
[2022-07-25] MEDS: Gabapentin 100 MG CAPSULE PO ×3 (08:37→19:16)
[2022-07-25] MEDS: metFORMIN HCl 500 MG TABLET PO ×2 (08:37→18:43)
[2022-07-25] MEDS: Benztropine Mesylate 0.5 MG TABLET PO ×2 (08:37→19:16)
--- NOTE | 2022-07-25 11:18 | P.PNPSI_ITS ---
Subjective Subjective Date of Service: 07/25/22 Reason For Visit: Unspec Schizophrenia Spectrum and Other Psychotic Interim History: met with patient; discussed in teams Patient reports continued auditory hallucinations to hurt himself and hurt other people. He says he does not think that will happen; sometimes he will burn his fingers in response. Patient agreed to stay longer for symptoms to resolve. Discussed diabetic medications and patient says that he does plan on continuing to take them and would like of PCP for follow-up. Mental Status Exam Mental Status Exam Narrative: Pt is alert and oriented; behavior is cooperative, distracted, calm; patient is not in distress; dressed in casual attire, adequate hygiene; mood is described as ok and affect a little blunted; eye contact minimal; Speech is normal volume, rate and prosody; no psychomotor retardation present; thought process is goal directed; thought content is on dealing with AH; on treatment and di scharge; otherwise pertinent to relevant topics; denies delusional content, paranoid ideations; has thoughts about SI and HI, due to AH; no intent or plans. Patient intermittently appears as internally preoccupied; continues to have auditory hallucinations however they have lessened in intensity; Patients insight and judgment are impaired. Diagnostics Vital Signs (24Hr): Vital Signs - 24 hr 07/25/22 06:00 Temperature 97 F Pulse Rate 64 Respiratory Rate 14 Blood Pressure 112/60 Labs 07/23/22 07:25 Labs: Laboratory Results - last 48 hr 07/23/22 07/23/22 07/23/22 12:44 17:11 21:26 POC Glucose 461 H* 391 H* 296 H 07/24/22 07/24/22 07/24/22 07:52 11:58 21:01 POC Glucose 320 H 270 H 332 H 07/25/22 08:04 POC Glucose 277 H Medications Medications Current Medications Acetaminophen (Acetaminophen 325 Mg Tablet) 650 mg PO Q6H PRN PRN Reason: Headache/Pain Mild Scale (1-3) Last Admin: 07/23/22 16:26 Dose: 650 mg Al Hydroxide/Mg Hydroxide (Magnesium Hydrox/Alum Hydrox 30 Ml Oral.Susp) 30 ml PO Q6H PRN PRN Reason: Heartburn/Nausea Benztropine Mesylate (Benztropine Mesylate 0.5 Mg Tablet) 0.5 mg PO BID [facility] Last Admin: 07/25/22 08:37 Dose: 0.5 mg Clonidine HCl (Clonidine Hcl 0.1 Mg Tablet) 0.1 mg PO BEDTIME [facility]; Protocol Last Admin: 07/24/22 21:14 Dose: Not Given Gabapentin (Gabapentin 100 Mg Capsule) 100 mg PO TID [facility] Last Admin: 07/25/22 08:37 Dose: 100 mg Hydroxyzine HCl (Hydroxyzine Hcl 25 Mg Tablet) 25 mg PO Q6H PRN PRN Reason: Anxiety Last Admin: 07/23/22 16:25 Dose: 25 mg Insulin Glargine (Insulin Glargine,Hum.Rec.Anlog 100 Unit/Ml 10 Ml Vial) 18 unit SUBCUT BID [facility] Last Admin: 07/25/22 08:35 Dose: 18 unit Insulin Human Lispro (Insulin Lispro 100 Unit/Ml 3 Ml Vial) 0 unit SUBCUT QIDACHS [facility]; Protocol Last Admin: 07/25/22 08:35 Dose: 6 unit Insulin Human Lispro (Insulin Lispro 100 Unit/Ml 3 Ml Vial) 5 unit SUBCUT QIDACHS [facility] Last Admin: 07/25/22 08:36 Dose: 5 unit Magnesium Hydroxide (Milk Of Magnesia 30 Ml Oral.Susp) 30 ml PO DAILY PRN PRN Reason: Constipation Metformin HCl (Metformin Hcl 500 Mg Tablet) 500 mg PO BIDWM [facility] Last Admin: 07/25/22 08:37 Dose: 500 mg Nicotine Polacrilex (Nicotine Polacrilex 2 Mg Gum) 2 mg BUCCAL Q2H PRN PRN Reason: Nicotine Cravings Risperidone (Risperidone 1 Mg Tablet) 1 mg PO BEDTIME [facility] Last Admin: 07/24/22 21:13 Dose: 1 mg Trazodone HCl (Trazodone Hcl 50 Mg Tablet) 50 mg PO BEDTIME MRX1 PRN PRN Reason: Insomnia Last Admin: 07/22/22 20:50 Dose: 50 mg Allergies Allergies Allergy/AdvReac Type Severity Reaction Status Date / Time codeine AdvReac Unknown Verified 03/13/22 18:33 Assessment & Plan Assessment & Plan (1) Schizophrenia, chronic condition: Status: Acute Code(s): F20.9 - Schizophrenia, unspecified Assessment and Plan: resume medications might do better on injectable monthly med (2) Diabetes: Status: Acute Code(s): E11.9 - Type 2 diabetes mellitus without complications Assessment and Plan: restared metformin and still on sliding scale for now (3) Cannabis abuse: Status: Acute Code(s): F12.10 - Cannabis abuse, uncomplicated (4) Cocaine abuse: Status: Acute Code(s): F14.10 - Cocaine abuse, uncomplicated Plan Patient is a 37-year-old male with history of schizophrenia, cocaine/substance abuse, diabetes and history of lack of follow-up who presents for command auditory hallucinations, wanting treatment. Hospital course: 07/25 patient agrees to getting on Invega Sustenna; good behavioral and impulse control; denies any SI or HI 07/26 willing to answer direct questions about treatment but otherwise isolative with limited engagement. patient agrees to retracting 3 day then signed another 1 to stay longer to help further clear up AH; says he will continue taking outpatient diabetic medications and asks for PCP. Impression: Patient was restarted on Risperdal and Cogentin; agrees to long-acting injectable which is preferable given his long history of lack of follow-up and not adherence. Patient also started on medication for diabetes. Patient lives in itinerant, wondering lifestyle and seldom attends to follow up and it is unlikely that he w ill be able to follow current diabetic regimen; will work with hospitalist to simplify regimen to something that is achievable and with a better chance of adherence than current regimen. plan: 3 day notice Q 15 minute checks Given long-acting Invega Sustenna 234 mg IM on 07/24 Hospitalist notes: #Davila, bilateral hands -Appear old, well healing without infection -No intervention needed at this time -Moisturize hands and discourage pt from picking skin to prevent infection #Insulin dependent type 2 diabetes-with hyperglycemia -Hgb A1c 9.1 -Glucose levels remain uncontrolled -Increase lantus to 18 units BID -Continue SSI and metformin -POC glucose -Recommend diabetic diet #Diabetic neuropathy -Add gabapentin starting at 100mg TID, titrate as tolerated -Recommend pt wear shoes and socks. Was found with tape on bottom of feet which he was unaware of and could not feel me remove #Cardiomyopathy, suspect dilated given drug use -Recommend outpt echo and cards follow up -Monitor BP Patient educated on: diagnosis Guardian/Caregiver educated on: diagnosis and medication risk/benefits Informed Consent: understands Reason for contiued inpatient stay Substantial Risk for: rapid decompensation and med/psych decompensation Time Spent With Patient Time: Total time managing care of this patient today ____ minutes.
[2022-07-25 12:07] LABS: Glucose, Whole Blood 283 mg/dL (60-115)
[2022-07-25 16:18] VITALS: BP 123/66; PULSE 75; RESP 16; TEMP 36.9; O2SAT 97
--- NOTE | 2022-07-25 16:34 | PC.NURSE ---
pt retracted his 3 day. pt signed a new day on 07/25/22
[2022-07-25 17:31] LABS: Glucose, Whole Blood 269 mg/dL (60-115)
[2022-07-25] MEDS: cloNIDine HCL 0.1 MG TABLET PO (19:16)
[2022-07-25] MEDS: risperiDONE 3 MG TABLET PO (19:16)
[2022-07-25 19:57] LABS: Glucose, Whole Blood 254 mg/dL (60-115)
[2022-07-26 07:45] LABS: Glucose, Whole Blood 253 mg/dL (60-115)
[2022-07-26] MEDS: metFORMIN HCl 500 MG TABLET PO (08:23)
[2022-07-26] MEDS: Benztropine Mesylate 0.5 MG TABLET PO ×2 (08:23→22:56)
[2022-07-26] MEDS: Gabapentin 100 MG CAPSULE PO ×3 (08:23→22:56)
[2022-07-26] MEDS: Insulin Lispro 100 UNIT/ML 3 ML VIAL SUBCUT ×8 (08:25→22:18)
[2022-07-26] MEDS: Insulin Glargine,Hum.rec.anlog 100 UNIT/ML 10 ML VIAL 18 UNIT SUBCUT ×2 (08:26→22:15)
[2022-07-26 09:07] VITALS: BP 110/55; PULSE 81; RESP 18; TEMP 36.6; O2SAT 99
--- NOTE | 2022-07-26 10:16 | P.PNPSI_ITS ---
Subjective Subjective Date of Service: 07/26/22 Reason For Visit: Unspec Schizophrenia Spectrum and Other Psychotic Interim History: Met with patient; discussed in teams. Patient reports that he is feeling better. Patient is indeed more sociable in the milieu, appropriately interacting with peers; flirtatious with female nurse. He still has auditory hallucinations but they are significantly lower and he says he is able to cope with them. AH do sometimes talk about hurting himself or other people but this is chronic and he is used to it and he says he is able to keep himself safe; he does not want to hurt anybody has no intentions or plans and says he just talks himself through it. Patient retracted his 3 day notice yesterday but put in another 1 later on and says he would like to go tomorrow. He agrees to get Invega Sustenna prior to leaving. Regarding diabetes medication patient wants to take them but agrees that there are too many and would would like some of them to be eliminated; agreed that given himself subcu injections at this time is not realistic. Agrees to amended regimen Mental Status Exam Mental Status Exam Narrative: Pt is alert and oriented; behavior is cooperative, friendly, calm; patient is not in distress; dressed in casual attire, adequate hygiene; mood is described as ok and affect more naturally expressive; eye contact adequate; Speech is normal volume, rate and prosody; no psychomotor retardation present; thought process is goal directed; thought content is on dealing with AH, discharge; otherwise pertinent to relevant topics; denies delusional content, paranoid ideations; no SI/HI; has AH which is chronic and now at a level he is able to ignore it and denies any intent or plans. ; Patients insight and judgment are fair and adequate. Diagnostics Vital Signs (24Hr): Vital Signs - 24 hr 07/25/22 16:18 07/26/22 09:07 Temperature 98.5 F 97.8 F Pulse Rate 75 81 Respiratory Rate 16 18 Blood Pressure 123/66 110/55 L Pulse Oximetry 97 99 Oxygen Delivery Method Room Air Room Air Labs 07/23/22 07:25 Labs: Laboratory Results - last 48 hr 07/24/22 07/24/22 07/25/22 11:58 21:01 08:04 POC Glucose 270 H 332 H 277 H 03/12/1007/25/22 07/25/22 12:03 17:25 19:52 POC Glucose 283 H 269 H 254 H 07/26/22 07:42 POC Glucose 253 H Medications Medications Current Medications Acetaminophen (Acetaminophen 325 Mg Tablet) 650 mg PO Q6H PRN PRN Reason: Headache/Pain Mild Scale (1-3) Last Admin: 07/23/22 16:26 Dose: 650 mg Al Hydroxide/Mg Hydroxide (Magnesium Hydrox/Alum Hydrox 30 Ml Oral.Susp) 30 ml PO Q6H PRN PRN Reason: Heartburn/Nausea Benztropine Mesylate (Benztropine Mesylate 0.5 Mg Tablet) 0.5 mg PO BID [facility] Last Admin: 07/26/22 08:23 Dose: 0.5 mg Clonidine HCl (Clonidine Hcl 0.1 Mg Tablet) 0.1 mg PO BEDTIME [facility]; Protocol Last Admin: 07/25/22 19:16 Dose: 0.1 mg Gabapentin (Gabapentin 100 Mg Capsule) 100 mg PO TID [facility] Last Admin: 07/26/22 08:23 Dose: 100 mg Hydroxyzine HCl (Hydroxyzine Hcl 25 Mg Tablet) 25 mg PO Q6H PRN PRN Reason: Anxiety Last Admin: 07/23/22 16:25 Dose: 25 mg Insulin Glargine (Insulin Glargine,Hum.Rec.Anlog 100 Unit/Ml 10 Ml Vial) 18 unit SUBCUT BID [facility] Last Admin: 07/26/22 08:26 Dose: 18 unit Insulin Human Lispro (Insulin Lispro 100 Unit/Ml 3 Ml Vial) 0 unit SUBCUT QIDACHS [facility]; Protocol Last Admin: 07/26/22 08:25 Dose: 6 unit Insulin Human Lispro (Insulin Lispro 100 Unit/Ml 3 Ml Vial) 5 unit SUBCUT QIDACHS [facility] Last Admin: 07/26/22 08:25 Dose: 5 unit Magnesium Hydroxide (Milk Of Magnesia 30 Ml Oral.Susp) 30 ml PO DAILY PRN PRN Reason: Constipation Metformin HCl (Metformin Hcl 500 Mg Tablet) 500 mg PO BIDWM [facility] Last Admin: 07/26/22 08:23 Dose: 500 mg Nicotine Polacrilex (Nicotine Polacrilex 2 Mg Gum) 2 mg BUCCAL Q2H PRN PRN Reason: Nicotine Cravings Risperidone (Risperidone 3 Mg Tablet) 3 mg PO BEDTIME [facility] Last Admin: 07/25/22 19:16 Dose: 3 mg Trazodone HCl (Trazodone Hcl 50 Mg Tablet) 50 mg PO BEDTIME MRX1 PRN PRN Reason: Insomnia Last Admin: 07/22/22 20:50 Dose: 50 mg Allergies Allergies Allergy/AdvReac Type Severity Reaction Status Date / Time codeine AdvReac Unknown Verified 03/13/22 18:33 Assessment & Plan Assessment & Plan (1) Schizophrenia, chronic condition: Status: Acute Code(s): F20.9 - Schizophrenia, unspecified Assessment and Plan: resume medications might do better on injectable monthly med (2) Diabetes: Status: Acute Code(s): E11.9 - Type 2 diabetes mellitus without complications Assessment and Plan: restared metformin and still on sliding scale for now (3) Cannabis abuse: Status: Acute Code(s): F12.10 - Cannabis abuse, uncomplicated (4) Cocaine abuse: Status: Acute Code(s): F14.10 - Cocaine abuse, uncomplicated Plan Patient is a 37-year-old male with history of schizophrenia, cocaine/substance abuse, diabetes and history of lack of follow-up who presents for command auditory hallucinations, wanting treatment. Hospital course: 07/24 patient agrees to getting on Invega Sustenna; good behavioral and impulse control; denies any SI or HI 07/25 willing to answer direct questions about treatment but otherwise isolative with limited engagement. patient agrees to retracting 3 day then signed another 1 to stay longer to help further clear up AH; says he will continue taking outpatient diabetic medications and asks for PCP. 07/26 Patient reports that he is feeling better. Patient is indeed more sociable in the milieu, appropriately interacting with peers; flirtatious with female nurse. He still has auditory hallucinations but they are significantly lower and he says he is able to cope with them. AH do sometimes talk about hurting himself or other people but this is chronic and he is used to it and he says he is able to keep himself safe; he does not want to hurt anybody has no intentions or plans and says he just talks himself through it. Patient retracted his 3 day notice yesterday but put in another 1 later on and says he would like to go tomorrow. He agrees to get Invega Sustenna prior to leaving. Regarding diabetes medication patient wants to take them but agrees that there are too many and would would like some of them to be eliminated; agreed that given himself subcu injections at this time is not realistic. Agrees to amended regimen; discussed case with Dr. Barrera who will help adjust regimen. Patient says he will present himself to friends of the homeless for follow-up care for his diabetes (discussed diabetes with patient and it is clear that patient understands the illness, the treatment and the consequences of not following up with treatment). Patient is at baseline. He has a 3 day notice in which is coming due. Patient has chronic auditory hallucinations that can be command in nature however he is able to cope with these on his own without hurting himself or anyone else even without being on medication. Patient is now on long-acting injectable and will receive next dose prior to discharge. Patient is not in imminent risk for harm to self or others and his request for discharge honored. Impression: Patient was restarted on Risperdal and Cogentin; agrees to long-acting injectable which is preferable given his long history of lack of follow-up and not adherence. Patient also started on medication for diabetes. Patient lives in itinerant, wondering lifestyle and seldom attends to follow up and it is unlikely that he will be able to follow current diabetic regimen regarding subcu injections; patient agrees to re-work regimen so that it is more attainable for now; he says he will follow up with [facility] the homeless [facility] for continued diabetic care. Pastoral Counselor discussed case with Dr. Barrera who agrees w/ changing regimen and recommends increasing Metformin to 1000mg bid and adding glyburide. will work with hospitalist to simplify regimen to something that is achievable and with a better chance of adherence than current regimen. plan: 3 day notice Q 15 minute checks Give Invega Sustenna 156 mg IM on 07/27 Received long-acting Invega Sustenna 234 mg IM on 07/24 Increase Metformin to 1000mg BID adding Glyburide. Hospitalist notes: #Davila, bilateral hands -Appear old, well healing without infection -No intervention needed at this time -Moisturize hands and discourage pt from picking skin to prevent infection #Insulin dependent type 2 diabetes-with hyperglycemia #Diabetic neuropathy -Add gabapentin starting at 100mg TID, titrate as tolerated #Cardiomyopathy, suspect dilated given drug use -Recommend outpt echo and cards follow up -Monitor BP Patient educated on: diagnosis, medication risk/benefits and medical condition Informed Consent: understands Reason for contiued inpatient stay Substantial Risk for: stable for discharge Time Spent With Patient Time: Total time managing care of this patient today ____ minutes.
[2022-07-26 12:11] LABS: Glucose, Whole Blood 377 mg/dL (60-115)
--- NOTE | 2022-07-26 12:26 | PC.NURSE ---
Pt's 1130 POC was 377. Pt received 10 units humalog per sliding scale protocol and 5 units humalog per standing order. Holly Bearden contacted, no additional orders at this time.
[2022-07-26] MEDS: glyBURIDE 5 MG TABLET 10 MG PO (17:26)
[2022-07-26] MEDS: metFORMIN HCl 1,000 MG TABLET 1000 MG PO (17:26)
[2022-07-26 17:35] LABS: Glucose, Whole Blood 335 mg/dL (60-115)
[2022-07-26 22:03] LABS: Glucose, Whole Blood 264 mg/dL (60-115)
[2022-07-26 22:40] VITALS: BP 116/61; PULSE 79; TEMP 36.4
[2022-07-26] MEDS: cloNIDine HCL 0.1 MG TABLET PO (22:56)
[2022-07-26] MEDS: risperiDONE 3 MG TABLET PO (22:59)
--- NOTE | 2022-07-27 02:42 | PC.NURSE ---
pt retracted 3 day notice on 07/27/22. pt is now a conditional voluntary
[2022-07-27 08:03] LABS: Glucose, Whole Blood 253 mg/dL (60-115)
[2022-07-27] MEDS: Benztropine Mesylate 0.5 MG TABLET PO ×2 (08:51→20:27)
[2022-07-27] MEDS: Gabapentin 100 MG CAPSULE PO ×3 (08:51→20:27)
[2022-07-27] MEDS: metFORMIN HCl 1,000 MG TABLET 1000 MG PO ×2 (08:51→16:22)
[2022-07-27] MEDS: glyBURIDE 5 MG TABLET 10 MG PO ×2 (08:51→16:22)
[2022-07-27] MEDS: Insulin Lispro 100 UNIT/ML 3 ML VIAL SUBCUT ×6 (08:53→16:49)
[2022-07-27] MEDS: Insulin Glargine,Hum.rec.anlog 100 UNIT/ML 10 ML VIAL 18 UNIT SUBCUT (08:53)
[2022-07-27 09:00] VITALS: BP 119/58; PULSE 72; RESP 18; TEMP 36.3; O2SAT 100
[2022-07-27 12:07] LABS: Glucose, Whole Blood 286 mg/dL (60-115)
--- NOTE | 2022-07-27 12:10 | HO.PSYCHPN ---
Subjective Subjective Date of Service: 07/27/22 Reason For Visit: Unspec Schizophrenia Spectrum and Other Psychotic Interim History: met with patient; discussed in teams pt says AH got worse and he does not want to leave today; he is hoping he can go tomorrow but wants to see that AH is down. He is not sure what triggered this recent flare, perhaps the stress of homelessness. He agrees to getting invega tomorrow instead. Denies any actual SI or HI Mental Status Exam Mental Status Exam Narrative: Pt is alert and oriented; behavior is cooperative, friendly, calm; patient is not in distress; dressed in casual attire, adequate hygiene; mood is described as ok and affect more naturally expressive; eye contact adequate; Speech is normal volume, rate and prosody; no psychomotor retardation present; thought process is goal directed; thought content is on dealing with AH, discharge; otherwise pertinent to relevant topics; denies delusional content, paranoid ideations; no SI/HI; AH which is a little worse today; patients insight and judgment are impaired but adequate. Diagnostics Vital Signs (24Hr): Vital Signs - 24 hr 07/26/22 22:40 07/27/22 09:00 Temperature 97.5 F 97.3 F Pulse Rate 79 72 Respiratory Rate 18 Blood Pressure 116/61 119/58 L Pulse Oximetry 100 Oxygen Delivery Method Room Air Labs 07/23/22 07:25 Labs: Laboratory Results - last 48 hr 07/25/22 07/25/22 07/26/22 17:25 19:52 07:42 POC Glucose 269 H 254 H 253 H 07/26/22 07/26/22 07/26/22 12:07 16:53 21:55 POC Glucose 377 H* 335 H 264 H 07/27/22 07/27/22 07:43 12:03 POC Glucose 253 H 286 H Medications Medications Current Medications Acetaminophen (Acetaminophen 325 Mg Tablet) 650 mg PO Q6H PRN PRN Reason: Headache/Pain Mild Scale (1-3) Last Admin: 07/23/22 16:26 Dose: 650 mg Al Hydroxide/Mg Hydroxide (Magnesium Hydrox/Alum Hydrox 30 Ml Oral.Susp) 30 ml PO Q6H PRN PRN Reason: Heartburn/Nausea Benztropine Mesylate (Benztropine Mesylate 0.5 Mg Tablet) 0.5 mg PO BID [facility] Last Admin: 07/27/22 08:51 Dose: 0.5 mg Clonidine HCl (Clonidine Hcl 0.1 Mg Tablet) 0.1 mg PO BEDTIME [facility]; Protocol Last Admin: 07/26/22 22:56 Dose: 0.1 mg Gabapentin (Gabapentin 100 Mg Capsule) 100 mg PO TID [facility] Last Admin: 07/27/22 08:51 Dose: 100 mg Glyburide (Glyburide 5 Mg Tablet) 10 mg PO BIDWM [facility] Last Admin: 07/27/22 08:51 Dose: 10 mg Hydroxyzine HCl (Hydroxyzine Hcl 25 Mg Tablet) 25 mg PO Q6H PRN PRN Reason: Anxiety Last Admin: 07/23/22 16:25 Dose: 25 mg Insulin Glargine (Insulin Glargine,Hum.Rec.Anlog 100 Unit/Ml 10 Ml Vial) 18 unit SUBCUT BID [facility] Last Admin: 07/27/22 08:53 Dose: 18 unit Insulin Human Lispro (Insulin Lispro 100 Unit/Ml 3 Ml Vial) 0 unit SUBCUT QIDACHS [facility]; Protocol Last Admin: 07/27/22 08:53 Dose: 6 unit Insulin Human Lispro (Insulin Lispro 100 Unit/Ml 3 Ml Vial) 5 unit SUBCUT QIDACHS [facility] Last Admin: 07/27/22 08:53 Dose: 5 unit Magnesium Hydroxide (Milk Of Magnesia 30 Ml Oral.Susp) 30 ml PO DAILY PRN PRN Reason: Constipation Metformin HCl (Metformin Hcl 1,000 Mg Tablet) 1,000 mg PO BIDWM [facility] Last Admin: 07/27/22 08:51 Dose: 1,000 mg Nicotine Polacrilex (Nicotine Polacrilex 2 Mg Gum) 2 mg BUCCAL Q2H PRN PRN Reason: Nicotine Cravings Paliperidone Palmitate (Paliperidone Palmitate 234 Mg/1.5 Ml Syringe) 234 mg IM Q30D [facility] Risperidone (Risperidone 3 Mg Tablet) 3 mg PO BEDTIME [facility] Last Admin: 07/26/22 22:59 Dose: 3 mg Trazodone HCl (Trazodone Hcl 50 Mg Tablet) 50 mg PO BEDTIME MRX1 PRN PRN Reason: Insomnia Last Admin: 07/22/22 20:50 Dose: 50 mg Allergies Allergies Allergy/AdvReac Type Severity Reaction Status Date / Time codeine AdvReac Unknown Verified 03/13/22 18:33 Assessment & Plan Assessment & Plan (1) Schizophrenia, chronic condition: Status: Acute Code(s): F20.9 - Schizophrenia, unspecified Assessment and Plan: resume medications might do better on injectable monthly med (2) Diabetes: Status: Acute Code(s): E11.9 - Type 2 diabetes mellitus without complications Assessment and Plan: restared metformin and still on sliding scale for now (3) Cannabis abuse: Status: Acute Code(s): F12.10 - Cannabis abuse, uncomplicated (4) Cocaine abuse: Status: Acute Code(s): F14.10 - Cocaine abuse, uncomplicated Plan Patient is a 37-year-old male with history of schizophrenia, cocaine/substance abuse, diabetes and history of lack of follow-up who presents for command auditory hallucinations, wanting treatment. Hospital course: 07/24 patient agrees to getting on Invega Sustenna; good behavioral and impulse control; denies any SI or HI 07/25 willing to answer direct questions about treatment but otherwise isolative with limited engagement. patient agrees to retracting 3 day then signed another 1 to stay longer to help further clear up AH; says he will continue taking outpatient diabetic medications and asks for PCP. 07/26 Patient reports that he is feeling better. Patient is indeed more sociable in the milieu, appropriately interacting with peers; flirtatious with female nurse. He still has auditory hallucinations but they are significantly lower and he says he is able to cope with them. AH do sometimes talk about hurting himself or other people but this is chronic and he is used to it and he says he is able to keep himself safe; he does not want to hurt anybody has no intentions or plans and says he just talks himself through it. Patient retracted his 3 day notice yesterday but put in another 1 later on and says he would like to go tomorrow. He agrees to get Invega Sustenna prior to leaving. Regarding diabetes medication patient wants to take them but agrees that there are too many and would would like some of them to be eliminated; agreed that given himself subcu injections at this time is not realistic. Agrees to amended regimen; discussed case with Dr. Barrera who will help adjust regimen. Patient says he will present himself to friends of the homeless for follow-up care for his diabetes (discussed diabetes with patient and it is clear that patient understands the illness, the treatment and the consequences of not following up with treatment). Patient is at baseline. He has a 3 day notice in which is coming due. Patient has chronic auditory hallucinations that can be command in nature however he is able to cope with these on his own without hurting himself or anyone else even without being on medication. Patient is now on long-acting injectable and will receive next dose prior to discharge. Patient is not in imminent risk for harm to self or others and his request for discharge honored. 07/27 patient asks to remain another day since AH is had a little flare up; hopes it will resolve so he can go tomorrow Impression: Patient was restarted on Risperdal and Cogentin; agrees to long-acting injectable which is preferable given his long history of lack of follow-up and not adherence. Patient also started on medication for diabetes. Patient lives in itinerant, wondering lifestyle and seldom attends to follow up and it is unlikely that he will be able to follow current diabetic regimen regarding subcu injections; patient agrees to re-work regimen so that it is more attainable for now; he says he will follow up with friends of the [facility] for continued diabetic care. 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 Barrera who agrees w/ changing regimen and recommends increasing Metformin to 1000mg bid and adding glyburide. will work with hospitalist to simplify regimen to something that is achievable and with a better chance of adherence than current regimen. plan: 3 day notice Q 15 minute checks Risperdal 4mg PO qhs (increased from 3mg as a bridge) Give Invega Sustenna 156 mg IM on 07/27 Received long-acting Invega Sustenna 234 mg IM on 07/24 Increase Metformin to 1000mg BID continue Glyburide. Hospitalist notes: #Davila, bilateral hands -Appear old, well healing without infection -No intervention needed at this time -Moisturize hands and discourage pt from picking skin to prevent infection #Insulin dependent type 2 diabetes-with hyperglycemia #Diabetic neuropathy -Add gabapentin starting at 100mg TID, titrate as tolerated #Cardiomyopathy, suspect dilated given drug use -Recommend outpt echo and cards follow up -Monitor BP Patient educated on: diagnosis and medication risk/benefits Informed Consent: understands Reason for contiued inpatient stay Substantial Risk for: rapid decompensation Time Spent With Patient Time: Total time managing care of this patient today ____ minutes.
[2022-07-27 16:38] LABS: Glucose, Whole Blood 244 mg/dL (60-115)
[2022-07-27] MEDS: Acetaminophen 325 MG TABLET 650 MG PO (16:57)
[2022-07-27] MEDS: cloNIDine HCL 0.1 MG TABLET PO (20:27)
[2022-07-27] MEDS: risperiDONE 2 MG TABLET 4 MG PO (20:27)
[2022-07-28 06:00] VITALS: BP 107/61; PULSE 81; RESP 14; TEMP 36.2; O2SAT 100
[2022-07-28 07:56] LABS: Glucose, Whole Blood 246 mg/dL (60-115)
[2022-07-28] MEDS: glyBURIDE 5 MG TABLET 10 MG PO ×2 (08:43→17:55)
[2022-07-28] MEDS: Gabapentin 100 MG CAPSULE PO ×3 (08:44→19:57)
[2022-07-28] MEDS: metFORMIN HCl 1,000 MG TABLET 1000 MG PO ×2 (08:44→17:55)
[2022-07-28] MEDS: Insulin Lispro 100 UNIT/ML 3 ML VIAL SUBCUT ×4 (08:46→12:33)
[2022-07-28] MEDS: Insulin Glargine,Hum.rec.anlog 100 UNIT/ML 10 ML VIAL 18 UNIT SUBCUT (08:48)
[2022-07-28] MEDS: Benztropine Mesylate 0.5 MG TABLET PO ×2 (08:50→19:57)
[2022-07-28] MEDS: Lidocaine HCl 4 % Topical 50 ML SOLUTION 1 APPL TOPICAL (10:40)
[2022-07-28] MEDS: Paliperidone Palmitate 156 MG/ML SYRINGE IM (11:00)
[2022-07-28 12:24] LABS: Glucose, Whole Blood 203 mg/dL (60-115)
--- NOTE | 2022-07-28 15:06 | HO.PSYCHPN ---
Subjective Subjective Date of Service: 07/28/22 Reason For Visit: Unspec Schizophrenia Spectrum and Other Psychotic Interim History: Met with patient; discussed with team Patient reports that auditory hallucinations are significantly lower and barely audible. He feels safe and ready to discharge. He would like to go tomorrow. Patient's 3 day notice was due today but he retracted and then resigned. Mental Status Exam Mental Status Exam Narrative: Pt is alert and oriented; behavior is cooperative, friendly, calm; overly flirtatious with female staff; patient is not in distress; dressed in casual attire, adequate hygiene; mood is described as good and affect more naturally expressive; eye contact adequate; Speech is normal volume, rate and prosody; no psychomotor retardation present; thought process is goal directed; thought content is on dealing with AH, discharge; otherwise pertinent to relevant topics; denies delusional content, paranoid ideations; no SI/HI; no AH; patients insight and judgment have improved are adequate Diagnostics Vital Signs (24Hr): Vital Signs - 24 hr 07/28/22 06:00 Temperature 97.1 F Pulse Rate 81 Respiratory Rate 14 Blood Pressure 107/61 Pulse Oximetry 100 Oxygen Delivery Method Room Air Labs 07/23/22 07:25 Labs: Laboratory Results - last 48 hr 07/26/22 07/26/22 07/27/22 16:53 21:55 07:43 POC Glucose 335 H 264 H 253 H 07/27/22 07/27/22 07/28/22 12:03 16:33 07:52 POC Glucose 286 H 244 H 246 H 07/28/22 12:20 POC Glucose 203 H Medications Medications Current Medications Acetaminophen (Acetaminophen 325 Mg Tablet) 650 mg PO Q6H PRN PRN Reason: Headache/Pain Mild Scale (1-3) Last Admin: 07/27/22 16:57 Dose: 650 mg Al Hydroxide/Mg Hydroxide (Magnesium Hydrox/Alum Hydrox 30 Ml Oral.Susp) 30 ml PO Q6H PRN PRN Reason: Heartburn/Nausea Benztropine Mesylate (Benztropine Mesylate 0.5 Mg Tablet) 0.5 mg PO BID ASHLEY Last Admin: 07/28/22 08:50 Dose: 0.5 mg Clonidine HCl (Clonidine Hcl 0.1 Mg Tablet) 0.1 mg PO BEDTIME ASHLEY; Protocol Last Admin: 07/27/22 20:27 Dose: 0.1 mg Gabapentin (Gabapentin 100 Mg Capsule) 100 mg PO TID [facility] Last Admin: 07/28/22 14:11 Dose: 100 mg Glyburide (Glyburide 5 Mg Tablet) 10 mg PO BIDWM [facility] Last Admin: 07/28/22 08:43 Dose: 10 mg Hydroxyzine HCl (Hydroxyzine Hcl 25 Mg Tablet) 25 mg PO Q6H PRN PRN Reason: Anxiety Last Admin: 07/23/22 16:25 Dose: 25 mg Insulin Glargine (Insulin Glargine,Hum.Rec.Anlog 100 Unit/Ml 10 Ml Vial) 18 unit SUBCUT BID [facility] Last Admin: 07/28/22 08:48 Dose: 18 unit Insulin Human Lispro (Insulin Lispro 100 Unit/Ml 3 Ml Vial) 0 unit SUBCUT QIDACHS [facility]; Protocol Last Admin: 07/28/22 12:33 Dose: 4 unit Insulin Human Lispro (Insulin Lispro 100 Unit/Ml 3 Ml Vial) 5 unit SUBCUT QIDACHS [facility] Last Admin: 07/28/22 12:33 Dose: 5 unit Magnesium Hydroxide (Milk Of Magnesia 30 Ml Oral.Susp) 30 ml PO DAILY PRN PRN Reason: Constipation Metformin HCl (Metformin Hcl 1,000 Mg Tablet) 1,000 mg PO BIDWM [facility] Last Admin: 07/28/22 08:44 Dose: 1,000 mg Nicotine Polacrilex (Nicotine Polacrilex 2 Mg Gum) 2 mg BUCCAL Q2H PRN PRN Reason: Nicotine Cravings Paliperidone Palmitate (Paliperidone Palmitate 234 Mg/1.5 Ml Syringe) 234 mg IM Q30D [facility] Risperidone (Risperidone 2 Mg Tablet) 4 mg PO BEDTIME [facility] Last Admin: 07/27/22 20:27 Dose: 4 mg Trazodone HCl (Trazodone Hcl 50 Mg Tablet) 50 mg PO BEDTIME MRX1 PRN PRN Reason: Insomnia Last Admin: 07/22/22 20:50 Dose: 50 mg Allergies Allergies Allergy/AdvReac Type Severity Reaction Status Date / Time codeine AdvReac Unknown Verified 03/13/22 18:33 Assessment & Plan Assessment & Plan (1) Schizophrenia, chronic condition: Status: Acute Code(s): F20.9 - Schizophrenia, unspecified Assessment and Plan: resume medications might do better on injectable monthly med (2) Diabetes: Status: Acute Code(s): E11.9 - Type 2 diabetes mellitus without complications Assessment and Plan: restared metformin and still on sliding scale for now (3) Cannabis abuse: Status: Acute Code(s): F12.10 - Cannabis abuse, uncomplicated (4) Cocaine abuse: Status: Acute Code(s): F14.10 - Cocaine abuse, uncomplicated Plan Patient is a 37-year-old male with history of schizophrenia, cocaine/substance abuse, diabetes and history of lack of follow-up who presents for command auditory hallucinations, wanting treatment. Hospital course: 07/24 patient agrees to getting on Invega Sustenna; good behavioral and impulse control; denies any SI or HI 07/25 willing to answer direct questions about treatment but otherwise isolative with limited engagement. patient agrees to retracting 3 day then signed another 1 to stay longer to help further clear up AH; says he will continue taking outpatient diabetic medications and asks for PCP. 07/26 Patient reports that he is feeling better. Patient is indeed more sociable in the milieu, appropriately interacting with peers; flirtatious with female nurse. He still has auditory hallucinations but they are significantly lower and he says he is able to cope with them. AH do sometimes talk about hurting himself or other people but this is chronic and he is used to it and he says he is able to keep himself safe; he does not want to hurt anybody has no intentions or plans and says he just talks himself through it. Patient retracted his 3 day notice yesterday but put in another 1 later on and says he would like to go tomorrow. He agrees to get Invega Sustenna prior to leaving. Regarding diabetes medication patient wants to take them but agrees that there are too many and would would like some of them to be eliminated; agreed that given himself subcu injections at this time is not realistic. Agrees to amended regimen; discussed case with Dr. Barrera who will help adjust regimen. Patient says he will [facility] for his diabetes (discussed diabetes with patient and it is clear that patient understands the illness, the treatment and the consequences of not following up with treatment). Patient is at baseline. He has a 3 day notice in which is coming due. Patient has chronic auditory hallucinations that can be command in nature however he is able to cope with these on his own without hurting himself or anyone else even without being on medication. Patient is now on long-acting injectable and will receive next dose prior to discharge. Patient is not in imminent risk for harm to self or others and his request for discharge honored. 07/27 patient asks to remain another day since AH is had a little flare up; hopes it will resolve so he can go tomorrow 07/28 patient reports AH a much better today and barely audible; he asks for discharge today but agrees to leave tomorrow. Patient is at baseline. Patient refused sliding scale; discussed diabetes with him and he agrees to sticking with p.o. medications only for now and will follow-up with outpatient providers at [facility]. Impression: Patient was restarted on Risperdal and Cogentin; agrees to long-acting injectable which is preferable given his long history of lack of follow-up and not adherence. Patient also started on medication for diabetes. Patient lives in itinerant, wondering lifestyle and seldom attends to follow up and it is unlikely that he will be able to follow current diabetic regimen regarding subcu injections; patient agrees to re-work regimen so that it is more attainable for now; he says he will follow up with [facility] for continued diabetic care. 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 Barrera who agrees w/ changing regimen and recommends increasing Metformin to 1000mg bid and adding glyburide. will work with hospitalist to simplify regimen to something that is achievable and with a better chance of adherence than current regimen. plan: 3 day notice Q 15 minute checks Risperdal 4mg PO qhs (increased from 3mg as a bridge) Received Invega Sustenna 156 mg IM on 07/28 Received long-acting Invega Sustenna 234 mg IM on 07/24 Increase Metformin to 1000mg BID continue Glyburide. Hospitalist notes: #Davila, bilateral hands -Appear old, well healing without infection -No intervention needed at this time -Moisturize hands and discourage pt from picking skin to prevent infection #Insulin dependent type 2 diabetes-with hyperglycemia #Diabetic neuropathy -Add gabapentin starting at 100mg TID, titrate as tolerated #Cardiomyopathy, suspect dilated given drug use -Recommend outpt echo and cards follow up -Monitor BP Patient educated on: diagnosis and medication risk/benefits Informed Consent: understands Reason for contiued inpatient stay Substantial Risk for: stable for discharge Time Spent With Patient Time: Total time managing care of this patient today ____ minutes.
--- NOTE | 2022-07-28 17:14 | P.DS_ITS ---
DS: Providers Provider Date of Service: 07/29/22 Date of admission: 07/22/22 13:31 Date of discharge: 07/29/22 Primary care physician: None Physician Attending physician on admission: Darian Hernandez Consults: 07/24/22 12:07 Consult to Hospitalist Routine Consulting Provider: Hospitalist Reason For Exam: admission physical Attending physician on discharge: Darian Hernandez DS: Diagnosis Discharge Diagnosis (1) Schizophrenia, chronic condition: Status: Acute (2) Diabetes: Status: Acute (3) Cannabis abuse: Status: Acute (4) Cocaine abuse: Status: Acute DS: Medications Discharge Medications Home Medications: Previous Rx's Medication Instructions Recorded benztropine 0.5 mg tablet 0.5 mg PO BID 30 days #60 tabs 07/28/22 clonidine HCl 0.1 mg tablet 0.1 mg PO BEDTIME 30 days #30 tabs 07/28/22 glyburide 5 mg tablet 10 mg PO BIDWM 30 days #120 tabs 07/28/22 metformin 1,000 mg tablet 1,000 mg PO BIDWM 30 days #60 tabs 07/28/22 paliperidone palmitate 234 mg/1.5 234 mg (1.5 mL) IM Q30D 28 days 07/28/22 mL intramuscular syringe (Invega #1.5 mL Sustenna) Mental Status Exam Mental Status Exam Narrative: Pt is alert and oriented; behavior is cooperative, friendly, calm; overly flirtatious with female staff; patient is not in distress; dressed in casual attire, adequate hygiene; mood is described as good and affect more naturally expressive; eye contact adequate; Speech is normal volume, rate and prosody; no psychomotor retardation present; thought process is goal directed; thought content is on dealing with AH, discharge; otherwise pertinent to relevant topics; denies delusional content, paranoid ideations; no SI/HI; no AH; patients insight and judgment have improved are adequate Data Data Completed and Pending Completed studies during hospitalization [Text1]: 07/23/22 07/23/22 07/23/22 07:25 08:02 12:44 Sodium 134 L Potassium 4.7 Chloride 99 Carbon Dioxide 26 Anion Gap 14 BUN 23 H Creatinine 1.36 Estim Creat Clear Calc TNP Estimated GFR 59 POC Glucose 506 H* 461 H* Fasting Glucose 504 H* Calcium 9.4 Total Bilirubin 0.3 AST 9 ALT 19 Alkaline Phosphatase 37 L Total Protein 6.5 Albumin 3.8 Triglycerides 63 Cholesterol 167 LDL Cholesterol, Calc 116 HDL Cholesterol 39 07/23/22 07/23/22 07/24/22 17:11 21:26 07:52 Sodium Potassium Chloride Carbon Dioxide Anion Gap BUN Creatinine Estim Creat Clear Calc Estimated GFR POC Glucose 391 H* 296 H 320 H Fasting Glucose Calcium Total Bilirubin AST ALT Alkaline Phosphatase Total Protein Albumin Triglycerides Cholesterol LDL Cholesterol, Calc HDL Cholesterol 07/24/22 07/24/22 07/25/22 11:58 21:01 08:04 Sodium Potassium Chloride Carbon Dioxide Anion Gap BUN Creatinine Estim Creat Clear Calc Estimated GFR POC Glucose 270 H 332 H 277 H Fasting Glucose Calcium Total Bilirubin AST ALT Alkaline Phosphatase Total Protein Albumin Triglycerides Cholesterol LDL Cholesterol, Calc HDL Cholesterol 07/25/22 07/25/22 07/25/22 12:03 17:25 19:52 Sodium Potassium Chloride Carbon Dioxide Anion Gap BUN Creatinine Estim Creat Clear Calc Estimated GFR POC Glucose 283 H 269 H 254 H Fasting Glucose Calcium Total Bilirubin AST ALT Alkaline Phosphatase Total Protein Albumin Triglycerides Cholesterol LDL Cholesterol, Calc HDL Cholesterol 07/26/22 07/26/22 07/26/22 07:42 12:07 16:53 Sodium Potassium Chloride Carbon Dioxide Anion Gap BUN Creatinine Estim Creat Clear Calc Estimated GFR POC Glucose 253 H 377 H* 335 H Fasting Glucose Calcium Total Bilirubin AST ALT Alkaline Phosphatase Total Protein Albumin Triglycerides Cholesterol LDL Cholesterol, Calc HDL Cholesterol 07/26/22 07/27/22 07/27/22 21:55 07:43 12:03 Sodium Potassium Chloride Carbon Dioxide Anion Gap BUN Creatinine Estim Creat Clear Calc Estimated GFR POC Glucose 264 H 253 H 286 H Fasting Glucose Calcium Total Bilirubin AST ALT Alkaline Phosphatase Total Protein Albumin Triglycerides Cholesterol LDL Cholesterol, Calc HDL Cholesterol 07/27/22 07/28/22 07/28/22 16:33 07:52 12:20 Sodium Potassium Chloride Carbon Dioxide Anion Gap BUN Creatinine Estim Creat Clear Calc Estimated GFR POC Glucose 244 H 246 H 203 H Fasting Glucose Calcium Total Bilirubin AST ALT Alkaline Phosphatase Total Protein Albumin Triglycerides Cholesterol LDL Cholesterol, Calc HDL Cholesterol DS: Summary Hospital Course Hospital Course: Patient is a 37-year-old male with history of schizophrenia, cocaine/substance abuse, diabetes and history of lack of follow-up who presents for command auditory hallucinations, wanting treatment. Hospital course: On admission, patient mostly quiet; patient is difficult with which to engage bu t not uncooperative; denies SI or HI but has command auditory hallucinations to do so; he is able to cope by talking himself out of it however they are very bothersome; patient internally preoccupied. Patient is patient agrees to getting on Invega Sustenna; good behavioral and impulse control. Patient's cocaine abuse was discussed however he minimize this and was not looking for treatment. Over the next day Patient became a little more engaged and and willing to answer direct questions about treatment; otherwise isolative and quiet; patient agrees to retracting 3 day then signed another 1 to stay longer to help further clear up AH; says he will continue taking outpatient diabetic medications and asks for PCP. Over the next few days Patient reports that he is feeling better and his affect is indeed brighter and more naturally expressive.? Though not attending groups, He is more sociable in the milieu, appropriately interacting with peers; as patient continued to improve in symptoms lessened, he became flirtatious with female staff, sometimes inappropriately. He continued to have auditory hallucinations but they significantly lowered and he says he is able to cope with them.?AH do sometimes talk about hurting himself or other people but this is chronic and he is used to it and he says he is able to keep himself safe; he does not want to hurt anybody has no intentions or plans and says he just talks himself through it.?He did have 1 day where AH flared up any retracted is 3 day, however AH again resolved and remained at a very low level. Patient was able to get his 2nd dose of Invega Sustenna. Patient asked for discharge saying he felt stable and ready to go. Denied any SI or HI and reported that AH remains very low and not bothersome. Patient's plan was to go to a snf and then [facility] with [facility]. Patient was at baseline. Given his chronic psychotic illness, is struggles with substance abuse and I tender at lifestyle, patient remains vulnerable to dysregulation, relapse and not adherence with medication; however this is not an issue that will resolve with longer inpatient stay. Patient has utilized the resources available during this admission and is now appropriate to return to the community for care. Patient is not in imminent risk for harm to self or others and his request for discharge honored. Regarding diabetes medication, patient wants to take them but agrees that there are too many and would would like some of them to be eliminated; he agreed that it is too much for him to give himself subcu injections and patient agreed to take p.o. medications only this time and will follow-up with [facility] post discharge. Ship'S Electronic Warfare Officer discussed case with Dr. Barrera who helped adjust regimen, started Glyburide and recommended getting off sliding scale and Lantus; patient tolerated these medication changes. Ship'S Electronic Warfare Officer discussed diabetes with patient who clearly understands the illness, the treatment and the consequences of not continuing with treatment or following up with aftercare. Time spent discussing smoking cessation with patient: 3 to 10 minutes Status at Discharge Functional status at discharge: independent ambulation Overall status at discharge: patient is back to baseline Time Spent with Patient Time attestation: Total time managing care of this patient today ____ minutes. Time spent: Less than 30 minutes Discharge Plan Discharge Anticipated Discharge Date/Time: 07/29/22 11:00 Patient Disposition: Halfway Discharge Diagnosis: Schizophrenia Referrals: Stephanie lOsen: [facility] [Other] - 08/03/22 (Initial intake for psychiatry and therapy services You must show for initial intake to receive medication management services.) [facility] [Other] - 1 Week (*Referral for snf placement Patient must call daily to secure placement ) [facility] [Other] - 1 Week (Referral to [facility] for [facility]f placement Patient should follow-up daily to obtain snf placement) [facility] [Other] - 1 Week ([facility] Patient must call for snf placement daily.) Physician,None [Primary Care Provider] - 1 Week Discharge Medications: New Invega Sustenna 234 mg/1.5 mL Syringe 234 mg IM Q30D 28 Days Qty: 1.5 0RF Rx Instructions: last dose on 07/28/22 glyburide 5 mg Tablet 10 mg PO BIDWM 30 Days Qty: 120 0RF Continued clonidine HCl 0.1 mg Tablet 0.1 mg PO BEDTIME 30 Days Qty: 30 0RF Protocol: Hold for SBP< HOLD for SBP < : 90 benztropine 0.5 mg Tablet 0.5 mg PO BID 30 Days Qty: 60 0RF metformin 1,000 mg Tablet 1,000 mg PO BIDWM 30 Days Qty: 60 0RF Discontinued risperidone [Risperdal] 4 mg tablet 4 mg PO BEDTIME 30 Days Qty: 30 0RF Discharge Orders: Discharge Order (Routine); Ordered 07/29/22 Ordered By: Darian Hernandez Diet: Diabetic diet Activity on Discharge: As tolerated Stand Alone Forms: Patient Portal Discharge page, Community Support Care Plan Goals: Maintain mood and safe behaviors Take medications as prescribed Continue to pursue sobriety Practice coping skills Continue with outpatient providers and reach out to them as needed Health Concerns: Mood stability and behaviors Sobriety Diabetes Plan of Treatment: Follow up with your PCP, psychiatric provider and other outpatient providers regarding above concerns Take medications as prescribed Assessment: Risk assessment at time of discharge:? Patient was interviewed prior to discharge and found to be fully oriented and without any SI or HI. Patient has insight and demonstrates good judgment in terms of wanting to pursue treatment. Patient is not in imminent risk of harm to self or others and has a safety plan that includes presenting to the closest ER or calling 911 if feeling unsafe.? Patient has been observed closely by nursing and unit staff throughout admission; patient has not engaged in any behaviors that suggest dangerousness to self or others and has demonstrated appropriate behaviors and impulse control
[2022-07-28] MEDS: risperiDONE 2 MG TABLET 4 MG PO (19:57)
[2022-07-29 08:13] LABS: Glucose, Whole Blood 208 mg/dL (60-115)
[2022-07-29] MEDS: metFORMIN HCl 1,000 MG TABLET 1000 MG PO (08:31)
[2022-07-29] MEDS: Benztropine Mesylate 0.5 MG TABLET PO (08:31)
[2022-07-29] MEDS: Gabapentin 100 MG CAPSULE PO (08:31)
[2022-07-29] MEDS: Insulin Glargine,Hum.rec.anlog 100 UNIT/ML 10 ML VIAL 18 UNIT SUBCUT (08:31)
[2022-07-29] MEDS: glyBURIDE 5 MG TABLET 10 MG PO (08:31)
[2022-07-29] MEDS: Insulin Lispro 100 UNIT/ML 3 ML VIAL SUBCUT ×2 (08:32)
[2022-07-29 08:36] VITALS: BP 105/66; PULSE 94; RESP 18; TEMP 36.1; O2SAT 98
[2022-07-29] MEDS: Naloxone HCl Nasal TAKE HOME 4 MG SPRAY NOSTRILALT (08:50)
== END 2022-07-29 11:03 | disposition home or self-care (01) | DRG 750 ==
PROVIDERS: Psychiatry & Neurology Psychiatry; Admitting Provider Psychiatry & Neurology Psychiatry; Visit Provider Psychiatry & Neurology Psychiatry
DX: F20.9 Schizophrenia, unspecified (principal); I42.0 Dilated cardiomyopathy; R45.851 Suicidal ideations; Z59.01 Sheltered homelessness; E11.40 Type 2 diabetes mellitus with diabetic neuropathy, unspecified; E11.65 Type 2 diabetes mellitus with hyperglycemia; F12.10 Cannabis abuse, uncomplicated; F14.10 Cocaine abuse, uncomplicated; Z91.14 Patient's other noncompliance with medication regimen; Z79.84 Long term (current) use of oral hypoglycemic drugs; Z79.899 Other long term (current) drug therapy
CPT/HCPCS: 36415; 80053; 80061; 82947; J2426

== ENCOUNTER 2022-11-07 17:36 | Inpatient (IN) | payer OTHER, SELFPAY ==
[2022-11-07 18:00] VITALS: BP 118/72; PULSE 86; TEMP 36.6; O2SAT 99
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
[2022-11-07] MEDS: Paliperidone ER 3 MG TAB.ER.24 PO (22:07)
[2022-11-08 08:53] VITALS: BP 126/75; PULSE 72; RESP 18; TEMP 36.8; O2SAT 100
[2022-11-08] MEDS: glyBURIDE 5 MG TABLET PO ×2 (08:54→17:37)
[2022-11-08] MEDS: Paliperidone ER 3 MG TAB.ER.24 PO ×2 (08:54→20:52)
[2022-11-08] MEDS: metFORMIN HCl 500 MG TABLET PO ×2 (08:54→19:11)
[2022-11-08 09:07] LABS: Estimated Average Glucose 266 mg/dL; Hemoglobin A1c % 10.9 %
[2022-11-08 09:35] LABS: Cholesterol 153 mg/dL; Estimated Glomerular Filt Rate 55; HDL Cholesterol 39 mg/dL; LDL Cholesterol Calculated 97 mg/dl; Triglycerides 89 mg/dL
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
[2022-11-08 17:50] LABS: Glucose, Whole Blood 321 mg/dL (60-115)
--- NOTE | 2022-11-08 18:39 | PM.EVENT ---
Event Note Date of Service: 11/08/22 Event Note: BS since admission in the 300's. A1c 10% Pt on metformin 500mg po daily. Will Increase metformin to 500mg po BIDWM. Added lispro additional coverage. Time Spent With Patient Time: Total time managing care of this patient today ____ minutes.
[2022-11-08 19:50] VITALS: BP 120/70; PULSE 90; RESP 16; TEMP 36.9; O2SAT 99
[2022-11-08 20:03] LABS: Glucose, Whole Blood 283 mg/dL (60-115)
[2022-11-08] MEDS: Insulin Lispro 100 UNIT/ML 3 ML VIAL SUBCUT (20:51)
[2022-11-09 08:34] LABS: Glucose, Whole Blood 308 mg/dL (60-115)
[2022-11-09 08:46] VITALS: BP 133/73; PULSE 71; RESP 20; TEMP 36.8; O2SAT 100
[2022-11-09] MEDS: Paliperidone ER 3 MG TAB.ER.24 PO (08:48)
[2022-11-09] MEDS: glyBURIDE 5 MG TABLET PO (08:48)
[2022-11-09] MEDS: Insulin Lispro 100 UNIT/ML 3 ML VIAL SUBCUT ×2 (08:48→12:41)
[2022-11-09] MEDS: metFORMIN HCl 500 MG TABLET PO (08:48)
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
[2022-11-09 12:36] LABS: Glucose, Whole Blood 344 mg/dL (60-115)
--- NOTE | 2022-11-09 13:12 | PC.NURSE ---
Patient easily engaged. Reports mood is stable, denies depression or sadness, denies SI/HI plan or intent at this time. Denies feeling anxious. Denies perceptual disturbances, denies A/V hallucinations. No overt psychosis or expressed delusions. Discharging to [facility]. All discharge paperwork reviewed with patient. Reports understanding. Discharge medications reviewed with patient, reports understanding. Information provided for walk in clinic if in need of medical attention. All belongings taken with patient.
== END 2022-11-09 12:55 | disposition home or self-care (01) | DRG 750 ==
PROVIDERS: Psychiatry & Neurology Psychiatry; Admitting Provider Psychiatry & Neurology Psychiatry; PCP Internal Medicine; Visit Provider Psychiatry & Neurology Psychiatry
DX: F20.0 Paranoid schizophrenia (principal); I42.9 Cardiomyopathy, unspecified; Z59.02 Unsheltered homelessness; E11.65 Type 2 diabetes mellitus with hyperglycemia; F14.10 Cocaine abuse, uncomplicated; Z79.84 Long term (current) use of oral hypoglycemic drugs; Z91.51 Personal history of suicidal behavior; Z76.5 Malingerer [conscious simulation]; Z91.52 Personal history of nonsuicidal self-harm; Z88.5 Allergy status to narcotic agent; Z79.899 Other long term (current) drug therapy
CPT/HCPCS: 36415; 80061; 82565; 82947; 83036

== ENCOUNTER 2024-02-08 00:47 | Inpatient (IN) | payer OTHER, SELFPAY ==
--- NOTE | ~2024-02-08 | XR_ITS ---
EXAMINATION: XR CHEST CLINICAL INFORMATION: Cough, fever COMPARISON: None available. TECHNIQUE: Frontal view of the chest was obtained. FINDINGS: No significant abnormality is noted involving the heart, lungs, mediastinum, bony thorax or soft tissues. XR/XR chest 1V IMPRESSION: Unremarkable examination. Electronically signed by: Mehul Samayoa MD 02/08/2024 09:29 PM EDT RP
[2024-02-08 01:55] VITALS: BP 110/69; PULSE 90; RESP 17; TEMP 36.2; O2SAT 97
[2024-02-08 04:23] VITALS: BMI 25.9
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
[2024-02-08 07:38] VITALS: BP 136/66; PULSE 81; RESP 14; TEMP 38; O2SAT 99
[2024-02-08 08:03] LABS: Glucose, Whole Blood 312 mg/dL (60-115)
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
[2024-02-08 09:37] VITALS: BP 142/72
[2024-02-08] MEDS: cloNIDine HCL 0.1 MG TABLET PO ×4 (09:37→20:26)
[2024-02-08] MEDS: Benztropine Mesylate 1 MG TABLET PO ×2 (09:37→20:26)
[2024-02-08] MEDS: glyBURIDE 2.5 MG TABLET PO ×2 (09:37→17:43)
[2024-02-08] MEDS: HaloperidoL 5 MG TABLET 10 MG PO ×2 (09:37→20:25)
--- NOTE | 2024-02-08 09:39 | PC.NURSE ---
Luan is febrile this am 100.4. He denies s/s infection besides general malaise. He declines tylenol. He is heard coughing intermittently - a wet cough - but declines lung auscultation at this time. He denies hx asthma. He denies SOB. He confirms he is a smoker but declines sahil replacement. There is a pending hospitalist consult. Above s/s shared in team meeting with providers Dr Lopez and Lorraine Gould NP.
--- NOTE | 2024-02-08 09:44 | PC.NURSE ---
flu shot not given today due to pt is febrile.
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
[2024-02-08 12:44] LABS: Glucose, Whole Blood 401 mg/dL (60-115)
[2024-02-08 13:05] VITALS: BP 105/66
[2024-02-08] MEDS: Insulin Lispro 100 UNIT/ML 3 ML VIAL 10 UNIT SUBCUT (13:08)
[2024-02-08 17:39] LABS: Glucose, Whole Blood 211 mg/dL (60-115)
[2024-02-08 17:40] VITALS: BP 122/60; PULSE 81; RESP 18; TEMP 38; O2SAT 97
[2024-02-08] MEDS: Insulin Lispro 100 UNIT/ML 3 ML VIAL SUBCUT ×2 (17:43→20:27)
[2024-02-08] MEDS: metFORMIN HCl 1,000 MG TABLET 1000 MG PO (17:44)
[2024-02-08] MEDS: Ondansetron ODT 8 MG TAB.RAPDIS TRANSLINGU (17:48)
[2024-02-08 19:09] LABS: Influenza A PCR NEGATIVE (Negative); Influenza B PCR NEGATIVE (Negative); Resp Syncy Virus RNA Qual PCR NEGATIVE (Negative); SARS COV2 PCR INHOUSE NEGATIVE (Negative)
[2024-02-08 20:15] VITALS: BP 101/55; PULSE 83; RESP 16; TEMP 36.5; O2SAT 100
[2024-02-08 20:19] LABS: Glucose, Whole Blood 331 mg/dL (60-115)
[2024-02-08] MEDS: QUEtiapine Fumarate 100 MG TABLET PO (20:26)
[2024-02-09 08:58] LABS: Estimated Average Glucose 197 mg/dL; Hemoglobin A1c % 8.5 % (<6.0)
[2024-02-09] MEDS: HaloperidoL 5 MG TABLET 10 MG PO ×2 (09:02→20:36)
[2024-02-09] MEDS: glyBURIDE 2.5 MG TABLET PO ×2 (09:02→18:08)
[2024-02-09] MEDS: metFORMIN HCl 1,000 MG TABLET 1000 MG PO (09:02)
[2024-02-09 09:19] LABS: Alanine Aminotransferase 27 U/L (0-40); Albumin Level 3.8 g/dL (3.5-5.0); Alkaline Phosphatase 60 U/L (39-117); Anion Gap 11 (12-20); Aspartate Amino Transferase 11 U/L (5-37); Bilirubin Total 0.2 mg/dL (0.0-1.0); Blood Urea Nitrogen 15 mg/dL (9-16); Carbon Dioxide 30 mmol/L (22-29); Chloride 99 mmol/L (96-108); Cholesterol 129 mg/dL (<200); Creatinine Clr Calc Pharmacy 69.6; Estimated Glomerular Filt Rate 48; Glucose Fasting 543 mg/dL (60-99); HDL Cholesterol 30 mg/dL (>40); LDL Cholesterol Calculated 80 mg/dL (<100); Potassium 4.8 mmol/L (3.3-5.1); Sodium 135 mmol/L (135-145); Total Protein 7.8 g/dL (6.5-8.0); Triglycerides 96 mg/dL (<150)
--- NOTE | 2024-02-09 09:32 | P.PNPSI_ITS ---
Subjective Subjective Date of Service: 02/09/24 Reason For Visit: Suicidal Ideation Subjective Notes: Conditional Voluntary Interim History: Patient was seen and discussed in rounds today. Records and plans were reviewed. He informed nurses that he was doing a lot of heroin, up to 20 bags prior to coming in. He is placed on a cows protocol and appropriate medications were ordered. Also his fasting sugar was 543 and hospitalist was notified. Yesterday he had a fever briefly but it subsided. He eats a lot. Continues to endorse depression and anxiety. No command hallucinations currently. He has had them. No active SI. Review of Systems Review of Systems Yes all other systems are reviewed and are negative Mental Status Exam Mental Status Exam Narrative: In today's visit he is alert, oriented and pleasant. Normal speech. Moderate eye contact. Affect is constricted. He has had auditory hallucinations but denies any currently. Has had command hallucinations but denies any. No active SI. No overt delusions. Cognitively is grossly intact. Judgment is intact Diagnostics Vital Signs (24Hr): Vital Signs - 24 hr 02/08/24 09:37 02/08/24 13:05 02/08/24 17:40 Temperature 100.4 F Pulse Rate 81 Respiratory Rate 18 Blood Pressure 142/72 H 105/66 122/60 Pulse Oximetry 97 Oxygen Delivery Method Room Air 02/08/24 20:15 Temperature 97.7 F Pulse Rate 83 Respiratory Rate 16 Blood Pressure 101/55 L Pulse Oximetry 100 Oxygen Delivery Method Room Air BMI result Body Mass Index 25.9 Labs 02/09/24 08:27 Labs: Laboratory Results - last 48 hr 02/08/24 02/08/24 02/08/24 07:59 12:40 17:33 Sodium Potassium Chloride Carbon Dioxide Anion Gap BUN Creatinine Estim Creat Clear Calc Estimated GFR POC Glucose 312 H 401 H* 211 H Fasting Glucose Estimat Average Glucose Hemoglobin A1c % Calcium Total Bilirubin AST ALT Alkaline Phosphatase Total Protein Albumin Triglycerides Cholesterol LDL Cholesterol, Calc HDL Cholesterol Influenza Type A (PCR) Influenza Type B (PCR) RSV RNA Qual (PCR) SARS-CoV-2 RNA (RT-PCR) 02/08/24 02/08/24 02/09/24 18:10 20:14 08:27 Sodium 135 Potassium 4.8 Chloride 99 Carbon Dioxide 30 H Anion Gap 11 L BUN 15 Creatinine 1.61 H Estim Creat Clear Calc 69.6 Estimated GFR 48 POC Glucose 331 H Fasting Glucose 543 H* Estimat Average Glucose 197 Hemoglobin A1c % 8.5 H Calcium 10.0 D Total Bilirubin 0.2 AST 11 ALT 27 Alkaline Phosphatase 60 Total Protein 7.8 Albumin 3.8 Triglycerides 96 Cholesterol 129 LDL Cholesterol, Calc 80 HDL Cholesterol 30 L Influenza Type A (PCR) NEGATIVE Influenza Type B (PCR) NEGATIVE RSV RNA Qual (PCR) NEGATIVE SARS-CoV-2 RNA (RT-PCR) NEGATIVE Imaging Radiology Impressions: ITS Impressions Chest X-Ray 02/08/24 18:15 IMPRESSION: Unremarkable examination. Electronically signed by: Mehul Samayoa MD 02/08/2024 09:29 PM EDT RP Medications Medications Current Medications Acetaminophen (Acetaminophen 325 Mg Tablet) 650 mg PO Q6H PRN PRN Reason: Headache/Pain Mild Scale (1-3) Al Hydroxide/Mg Hydroxide (Magnesium Hydrox/Alum Hydrox 30 Ml Oral.Susp) 30 ml PO Q6H PRN PRN Reason: Heartburn/Nausea Benztropine Mesylate (Benztropine Mesylate 1 Mg Tablet) 1 mg PO BEDTIME [facility] Last Admin: 02/08/24 20:26 Dose: 1 mg Clonidine HCl (Clonidine Hcl 0.1 Mg Tablet) 0.1 mg PO QID [facility]; Protocol Last Admin: 02/09/24 09:04 Dose: Not Given Glucose (Glucose Gel 15 Gm Gel..Gram.) 15 gm PO Q15M PRN; Protocol PRN Reason: per Hypoglycemia Standing Ord. Glyburide (Glyburide 2.5 Mg Tablet) 2.5 mg PO BIDWM [facility] Last Admin: 02/09/24 09:02 Dose: 2.5 mg Haloperidol (Haloperidol 5 Mg Tablet) 10 mg PO BID [facility] Last Admin: 02/09/24 09:02 Dose: 10 mg Hydroxyzine HCl (Hydroxyzine Hcl 25 Mg Tablet) 25 mg PO Q6H PRN PRN Reason: Anxiety Dextrose (D10) 250 mls @ 750 mls/hr IV Q15M PRN; Protocol PRN Reason: per Hypoglycemia Standing Ord. Insulin Human Lispro (Insulin Lispro 100 Unit/Ml 3 Ml Vial) 0 unit SUBCUT QIDACHS [facility]; Protocol Last Admin: 02/09/24 09:05 Dose: Not Given Magnesium Hydroxide (Milk Of Magnesia 30 Ml Oral.Susp) 30 ml PO DAILY PRN PRN Reason: Constipation Metformin HCl (Metformin Hcl 1,000 Mg Tablet) 1,000 mg PO BIDWM [facility] Last Admin: 02/09/24 09:02 Dose: 1,000 mg Ondansetron HCl (Ondansetron Odt 8 Mg Tab.Rapdis) 8 mg TRANSLINGU Q8H PRN PRN Reason: Nausea and Vomiting Last Admin: 02/08/24 17:48 Dose: 8 mg Quetiapine Fumarate (Quetiapine Fumarate 100 Mg Tablet) 100 mg PO BEDTIME [facility] Last Admin: 02/08/24 20:26 Dose: 100 mg Trazodone HCl (Trazodone Hcl 50 Mg Tablet) 50 mg PO BEDTIME MRX1 PRN PRN Reason: Insomnia Allergies Allergies Allergy/AdvReac Type Severity Reaction Status Date / Time codeine AdvReac Unknown Unknown Verified 11/07/22 17:42 Assessment & Plan Assessment & Plan (1) Medical clearance for psychiatric admission: Status: Acute Code(s): Z00.8 - Encounter for other general examination Plan Pt is a 39-year-old male with a PMH significant for ing-whorjcq-zshnsqcji type 2 diabetes, cardiomyopathy, schizophrenia, and polysubstance use disorder who is admitted to [facility] psychiatry unit for increased depression with SI attempt. Patient was initially brought to [facility] ED by EMS after patient was found down on the ground by a bystander. Patient reported that he tried to intentionally overdose on heroin and attempt to kill himself. Medical consult for admission H&P. Mood disorder Plan as per psychiatry Cough The patient has been experiencing nausea and nonproductive cough x1 week Low-grade fever of 100.4, vitals otherwise WNL Will test for COVID/flu/RSV CXR Pom-kjcjqzt-dybsmutzc diabetes Poorly controlled Last A1c 10.9 on 11/08/2022, POCs as high as 401 while on the unit Pt states he has not been taking any home meds recently Restart metformin Place on sliding scale insulin Recheck A1c Encourage patient to follow a diabetic diet and diabetic snacking Pt should follow-up outpatient with PCP for diabetes control and medication management HIV Pt reports was diagnosed years ago Has not followed up for treatment or additional testing Will check HIV Ab/Ag Thank you for allowing us to participate in the care of this patient. Signing off at this time. Please re-consult if any acute complaints or issues arise. 02/08: Continue current regimen and plans Reason for continued inpatient stay Substantial Risk for: med/psych decompensation Time Spent With Patient Time: Total time managing care of this patient today ____ minutes.
[2024-02-09] MEDS: Insulin Lispro 100 UNIT/ML 3 ML VIAL SUBCUT ×3 (10:03→20:35)
--- NOTE | 2024-02-09 11:41 | MHC.RECOVRN ---
Per Suhail, pt's nurse, pt still declining to provide UDS. Will F/U tomorrow.
[2024-02-09 12:27] LABS: Glucose, Whole Blood 144 mg/dL (60-115)
--- NOTE | 2024-02-09 12:43 | P.EN_ITS ---
Event Note Date of Service: 02/09/24 Event Note: Patient is a 39-year-old with a PMH significant for uncontrolled non insulin- dependent diabetes noncompliant with medications in the community. Follow-up for hyperglycemia. Patient's blood sugars continue to be variable and elevated, with POC as high as 401 and fasting glucose 543 this morning. Morning labs indicate worsening kidney function with creatinine at 1.61 elevated from 1.44 on 11/08/2022. A1c 8.5 which is improved from 10.9 on 11/08/2022. Will stop metformin due to worsening kidney function. Continue glyburide. Will add Lantus 5 units daily. Continue sliding scale insulin. Encourage diabetic diet and diabetic snacking. Attempted to give patient 1L IVF for worsening kidney function, but patient refused. Encourage p.o. intake water or diet duncan abby. Time Spent With Patient Time: Total time managing care of this patient today ____ minutes.
[2024-02-09 13:26] VITALS: BP 119/76; PULSE 82
[2024-02-09] MEDS: cloNIDine HCL 0.1 MG TABLET PO (13:29)
[2024-02-09] MEDS: Insulin Glargine,Hum.rec.anlog 100 UNIT/ML 10 ML VIAL SUBCUT (13:29)
[2024-02-09 15:20] VITALS: PULSE 84
[2024-02-09 17:49] LABS: Glucose, Whole Blood 355 mg/dL (60-115)
[2024-02-09 18:07] VITALS: BP 104/55
[2024-02-09 20:00] VITALS: PULSE 82; RESP 16
[2024-02-09 20:24] LABS: Glucose, Whole Blood 353 mg/dL (60-115)
[2024-02-09] MEDS: Benztropine Mesylate 1 MG TABLET PO (20:36)
[2024-02-09] MEDS: QUEtiapine Fumarate 100 MG TABLET PO (20:36)
[2024-02-09 23:37] VITALS: PULSE 82
[2024-02-10 08:21] VITALS: BP 114/78; PULSE 75; RESP 18; TEMP 36.8; O2SAT 99
[2024-02-10 08:22] VITALS: PULSE 75
[2024-02-10] MEDS: cloNIDine HCL 0.1 MG TABLET PO ×3 (09:02→20:41)
[2024-02-10] MEDS: HaloperidoL 5 MG TABLET 10 MG PO ×2 (09:02→20:40)
[2024-02-10] MEDS: glyBURIDE 2.5 MG TABLET PO ×2 (09:05→16:38)
--- NOTE | 2024-02-10 10:01 | P.PNPSI_ITS ---
Subjective Subjective Date of Service: 02/10/24 Reason For Visit: Suicidal Ideation Subjective Notes: Conditional Voluntary and 3 Day Interim History: Patient was seen and discussed in rounds today. Records and plans were reviewed. He has been stable and is doing well and not scoring much on his opiate withdrawal scale. Some anxiety and depression persisting. He is medication compliant but refused the clonidine. He has a 3 day notice in which expires on 02/12. No changes were made today Review of Systems Review of Systems Yes all other systems are reviewed and are negative Mental Status Exam Mental Status Exam Narrative: In today's visit he is alert, oriented and pleasant. Normal speech. Moderate eye contact. Affect is constricted. He has had auditory hallucinations but denies any currently. Has had command hallucinations but denies any. No active SI. No overt delusions. Cognitively is grossly intact. Judgment is intact Diagnostics Vital Signs (24Hr): Vital Signs - 24 hr 02/09/24 13:26 02/09/24 18:07 02/09/24 20:00 Temperature Pulse Rate 82 82 Respiratory Rate 16 Blood Pressure 119/76 104/55 L Pulse Oximetry Oxygen Delivery Method 02/10/24 08:21 Temperature 98.2 F Pulse Rate 75 Respiratory Rate 18 Blood Pressure 114/78 Pulse Oximetry 99 Oxygen Delivery Method Room Air BMI result Body Mass Index 25.9 Labs 02/09/24 08:27 Labs: Laboratory Results - last 48 hr 02/08/24 02/08/24 02/08/24 12:40 17:33 18:10 Sodium Potassium Chloride Carbon Dioxide Anion Gap BUN Creatinine Estim Creat Clear Calc Estimated GFR POC Glucose 401 H* 211 H Fasting Glucose Estimat Average Glucose Hemoglobin A1c % Calcium Total Bilirubin AST ALT Alkaline Phosphatase Total Protein Albumin Triglycerides Cholesterol LDL Cholesterol, Calc HDL Cholesterol Influenza Type A (PCR) NEGATIVE Influenza Type B (PCR) NEGATIVE RSV RNA Qual (PCR) NEGATIVE SARS-CoV-2 RNA (RT-PCR) NEGATIVE 02/08/24 02/09/24 02/09/24 20:14 08:27 12:19 Sodium 135 Potassium 4.8 Chloride 99 Carbon Dioxide 30 H Anion Gap 11 L BUN 15 Creatinine 1.61 H Estim Creat Clear Calc 69.6 Estimated GFR 48 POC Glucose 331 H 144 H Fasting Glucose 543 H* Estimat Average Glucose 197 Hemoglobin A1c % 8.5 H Calcium 10.0 D Total Bilirubin 0.2 AST 11 ALT 27 Alkaline Phosphatase 60 Total Protein 7.8 Albumin 3.8 Triglycerides 96 Cholesterol 129 LDL Cholesterol, Calc 80 HDL Cholesterol 30 L Influenza Type A (PCR) Influenza Type B (PCR) RSV RNA Qual (PCR) SARS-CoV-2 RNA (RT-PCR) 02/09/24 02/09/24 17:42 20:18 Sodium Potassium Chloride Carbon Dioxide Anion Gap BUN Creatinine Estim Creat Clear Calc Estimated GFR POC Glucose 355 H* 353 H* Fasting Glucose Estimat Average Glucose Hemoglobin A1c % Calcium Total Bilirubin AST ALT Alkaline Phosphatase Total Protein Albumin Triglycerides Cholesterol LDL Cholesterol, Calc HDL Cholesterol Influenza Type A (PCR) Influenza Type B (PCR) RSV RNA Qual (PCR) SARS-CoV-2 RNA (RT-PCR) Imaging Radiology Impressions: ITS Impressions Chest X-Ray 02/08/24 18:15 IMPRESSION: Unremarkable examination. Electronically signed by: Mehul Samayoa MD 02/08/2024 09:29 PM EDT RP Medications Medications Current Medications Acetaminophen (Acetaminophen 325 Mg Tablet) 650 mg PO Q6H PRN PRN Reason: Headache/Pain Mild Scale (1-3) Al Hydroxide/Mg Hydroxide (Magnesium Hydrox/Alum Hydrox 30 Ml Oral.Susp) 30 ml PO Q6H PRN PRN Reason: Heartburn/Nausea Benztropine Mesylate (Benztropine Mesylate 1 Mg Tablet) 1 mg PO BEDTIME [facility] Last Admin: 02/09/24 20:36 Dose: 1 mg Clonidine HCl (Clonidine Hcl 0.1 Mg Tablet) 0.1 mg PO QID [facility]; Protocol Last Admin: 02/10/24 09:02 Dose: 0.1 mg Clonidine HCl (Clonidine Hcl 0.1 Mg Tablet) 0.1 mg PO Q4H PRN; Protocol PRN Reason: Opiate Withdrawal Glucose (Glucose Gel 15 Gm Gel..Gram.) 15 gm PO Q15M PRN; Protocol PRN Reason: per Hypoglycemia Standing Ord. Glyburide (Glyburide 2.5 Mg Tablet) 2.5 mg PO BIDWM [facility] Last Admin: 02/10/24 09:05 Dose: 2.5 mg Haloperidol (Haloperidol 5 Mg Tablet) 10 mg PO BID [facility] Last Admin: 02/10/24 09:02 Dose: 10 mg Hydroxyzine HCl (Hydroxyzine Hcl 25 Mg Tablet) 25 mg PO Q6H PRN PRN Reason: Anxiety Dextrose (D10) 250 mls @ 750 mls/hr IV Q15M PRN; Protocol PRN Reason: per Hypoglycemia Standing Ord. Insulin Glargine (Insulin Glargine,Hum.Rec.Anlog 100 Unit/Ml 10 Ml Vial) 5 unit SUBCUT DAILY [facility] Last Admin: 02/10/24 09:07 Dose: Not Given Insulin Human Lispro (Insulin Lispro 100 Unit/Ml 3 Ml Vial) 0 unit SUBCUT QIDACHS [facility]; Protocol Last Admin: 02/10/24 08:42 Dose: Not Given Loperamide HCl (Loperamide Hcl 2 Mg Capsule) 4 mg PO Q4H PRN PRN Reason: Diarrhea Magnesium Hydroxide (Milk Of Magnesia 30 Ml Oral.Susp) 30 ml PO DAILY PRN PRN Reason: Constipation Ondansetron HCl (Ondansetron Odt 8 Mg Tab.Rapdis) 8 mg TRANSLINGU Q8H PRN PRN Reason: Nausea and Vomiting Last Admin: 02/08/24 17:48 Dose: 8 mg Prochlorperazine Maleate (Prochlorperazine Maleate 5 Mg Tablet) 10 mg PO Q4H PRN PRN Reason: Nausea Quetiapine Fumarate (Quetiapine Fumarate 100 Mg Tablet) 100 mg PO BEDTIME [facility] Last Admin: 02/09/24 20:36 Dose: 100 mg Trazodone HCl (Trazodone Hcl 50 Mg Tablet) 50 mg PO BEDTIME MRX1 PRN PRN Reason: Insomnia Allergies Allergies Allergy/AdvReac Type Severity Reaction Status Date / Time codeine AdvReac Unknown Unknown Verified 11/07/22 17:42 Assessment & Plan Assessment & Plan (1) Medical clearance for psychiatric admission: Status: Acute Code(s): Z00.8 - Encounter for other general examination Plan Pt is a 39-year-old male with a PMH significant for iov-vhukoia-oqjrzqpdi type 2 diabetes, cardiomyopathy, schizophrenia, and polysubstance use disorder who is admitted to psychiatry unit for increased depression with SI attempt. Patient was initially brought to [facility] by EMS after patient was found down on the ground by a bystander. Patient reported that he tried to intentionally overdose on heroin and attempt to kill himself. Medical consult for admission H&P. Mood disorder Plan as per psychiatry Cough The patient has been experiencing nausea and nonproductive cough x1 week Low-grade fever of 100.4, vitals otherwise WNL Will test for COVID/flu/RSV CXR Sal-ywmgzxm-mhcifghfo diabetes Poorly controlled Last A1c 10.9 on 11/08/2022, POCs as high as 401 while on the unit Pt states he has not been taking any home meds recently Restart metformin Place on sliding scale insulin Recheck A1c Encourage patient to follow a diabetic diet and diabetic snacking Pt should follow-up outpatient with PCP for diabetes control and medication management HIV Pt reports was diagnosed years ago Has not followed up for treatment or additional testing Will check HIV Ab/Ag Thank you for allowing us to participate in the care of this patient. Signing off at this time. Please re-consult if any acute complaints or issues arise. 02/08: Continue current regimen and plans Reason for continued inpatient stay Substantial Risk for: med/psych decompensation Time Spent With Patient Time: Total time managing care of this patient today ____ minutes.
--- NOTE | 2024-02-10 11:19 | MHC.RECOVRN ---
Attempted to meet with pt. in 324-1 following consult received and pt. resistant to providing UDS for further treatment guidance. Upon arrival pt. was laying in bed resting. He did awake to voice but declined my visit. Per Nurse Jang, pt declined POC UDS again today. Pt scored 0 on COWS for nurse this AM and I did not observe any active W/D sx during my short interaction with pt. today. ACS team will continue to follow/support PRN. Report provided to floor nurse Suhail and ACS team.
[2024-02-10] MEDS: Acetaminophen 325 MG TABLET 650 MG PO (13:32)
[2024-02-10 13:38] VITALS: BP 98/57
[2024-02-10 16:00] VITALS: PULSE 72
[2024-02-10] MEDS: Benzocaine 20 % Oral Gel 9 GM TUBE 1 APPL MUCOUS MEM (16:36)
[2024-02-10 16:39] VITALS: BP 122/77
[2024-02-10 19:55] VITALS: BP 118/73; PULSE 94; RESP 18; TEMP 36.2; O2SAT 99
[2024-02-10] MEDS: QUEtiapine Fumarate 100 MG TABLET PO (20:40)
[2024-02-10] MEDS: Benztropine Mesylate 1 MG TABLET PO (20:44)
[2024-02-10] MEDS: Insulin Lispro 100 UNIT/ML 3 ML VIAL SUBCUT (20:46)
[2024-02-10 21:06] LABS: Glucose, Whole Blood 483 mg/dL (60-115)
[2024-02-10 22:02] LABS: Glucose, Whole Blood 381 mg/dL (60-115)
[2024-02-11 04:12] LABS: HIV AB/AG Nonreactive (Nonreactive); HIV Num 1 0.05 S/CO (0.00-0.99)
[2024-02-11 08:00] VITALS: PULSE 84
[2024-02-11 08:44] VITALS: BP 105/60; PULSE 84; RESP 18; TEMP 37.4; O2SAT 99
[2024-02-11 08:48] LABS: Glucose, Whole Blood 390 mg/dL (60-115)
--- NOTE | 2024-02-11 08:53 | P.PNPSI_ITS ---
Subjective Subjective Date of Service: 02/11/24 Reason For Visit: Suicidal Ideation Subjective Notes: 3 Day Interim History: Reviewed with Dr. Kim. Patient reports he submitted 3 day notice over the weekend d/t feeling better and not feeling like I need to be in the hospital . Pt reports feeling okay ; he denies auditory hallucinations. Pt stated, the voices went away a couple of days ago when I started taking the medications. I don't hear them telling me to hurt anyone . Pt reports he is no longer feeling suicidal. Pt stated, I want to live because of my kids and my niece. I see my niece everyday and sometimes I stay with my sister when she lets me . Pt reports he would like to go to a longterm after discharge and have referrals for psychiatric outpatient providers. fish house worker, hamida Benavidez. Medication Compliance: Yes Side effects from medications: No Attending Groups: No Review of Systems Constitutional: Reports as per HPI Eyes: Reports as per HPI Reports as per HPI Cardiovascular: Reports as per HPI Respiratory: Reports as per HPI Gastrointestinal: Reports as per HPI Genitourinary: Reports as per HPI Musculoskeletal: Reports as per HPI Skin/Breast: Reports as per HPI Reports as per HPI Psychiatric: Reports as per HPI Endocrine: Reports as per HPI Hematologic/Lymphatic: Reports as per HPI Allergic/Immunologic: Reports as per HPI Mental Status Exam Mental Status Exam Narrative: Pt is alert and oriented; behavior is cooperative and calm; dressed in casual attire; mood is described as better ; eye contact appropriate; Speech is normal rate, volume and not pressured; thought process is organized and goal directed; Thought content is on tx; denies SI/HI/VH/AH. Diagnostics Vital Signs (24Hr): Vital Signs - 24 hr 02/10/24 13:38 02/10/24 16:39 02/10/24 19:55 Temperature 97.1 F Pulse Rate 94 Respiratory Rate 18 Blood Pressure 98/57 L 122/77 118/73 Pulse Oximetry 99 Oxygen Delivery Method Room Air 02/11/24 08:44 Temperature 99.3 F Pulse Rate 84 Respiratory Rate 18 Blood Pressure 105/60 Pulse Oximetry 99 Oxygen Delivery Method Room Air BMI result Body Mass Index 25.9 Labs 02/09/24 08:27 Labs: Laboratory Results - last 48 hr 02/09/24 02/09/24 02/09/24 08:27 12:19 17:42 Sodium 135 Potassium 4.8 Chloride 99 Carbon Dioxide 30 H Anion Gap 11 L BUN 15 Creatinine 1.61 H Estim Creat Clear Calc 69.6 Estimated GFR 48 POC Glucose 144 H 355 H* Fasting Glucose 543 H* Estimat Average Glucose 197 Hemoglobin A1c % 8.5 H Calcium 10.0 D Total Bilirubin 0.2 AST 11 ALT 27 Alkaline Phosphatase 60 Total Protein 7.8 Albumin 3.8 Triglycerides 96 Cholesterol 129 LDL Cholesterol, Calc 80 HDL Cholesterol 30 L HIV 1&2 Ab/P24 Ag 4thGn Nonreactive 02/09/24 02/10/24 02/10/24 20:18 20:36 21:56 Sodium Potassium Chloride Carbon Dioxide Anion Gap BUN Creatinine Estim Creat Clear Calc Estimated GFR POC Glucose 353 H* 483 H* 381 H* Fasting Glucose Estimat Average Glucose Hemoglobin A1c % Calcium Total Bilirubin AST ALT Alkaline Phosphatase Total Protein Albumin Triglycerides Cholesterol LDL Cholesterol, Calc HDL Cholesterol HIV 1&2 Ab/P24 Ag 4thGn 02/11/24 08:32 Sodium Potassium Chloride Carbon Dioxide Anion Gap BUN Creatinine Estim Creat Clear Calc Estimated GFR POC Glucose 390 H* Fasting Glucose Estimat Average Glucose Hemoglobin A1c % Calcium Total Bilirubin AST ALT Alkaline Phosphatase Total Protein Albumin Triglycerides Cholesterol LDL Cholesterol, Calc HDL Cholesterol HIV 1&2 Ab/P24 Ag 4thGn Imaging Radiology Impressions: ITS Impressions Chest X-Ray 02/08/24 18:15 IMPRESSION: Unremarkable examination. Electronically signed by: Mehul Samayoa MD 02/08/2024 09:29 PM EDT RP Medications Medications Current Medications Acetaminophen (Acetaminophen 325 Mg Tablet) 650 mg PO Q6H PRN PRN Reason: Headache/Pain Mild Scale (1-3) Last Admin: 02/10/24 13:32 Dose: 650 mg Al Hydroxide/Mg Hydroxide (Magnesium Hydrox/Alum Hydrox 30 Ml Oral.Susp) 30 ml PO Q6H PRN PRN Reason: Heartburn/Nausea Benzocaine (Benzocaine 20 % Oral Gel 9 Gm Tube) 1 appl MUCOUS MEM QID PRN; Protocol PRN Reason: Pain, Moderate(Pain Scale 4-6) Last Admin: 02/10/24 16:36 Dose: 1 appl Benztropine Mesylate (Benztropine Mesylate 1 Mg Tablet) 1 mg PO BEDTIME [facility] Last Admin: 02/10/24 20:44 Dose: 1 mg Clonidine HCl (Clonidine Hcl 0.1 Mg Tablet) 0.1 mg PO QID [facility]; Protocol Last Admin: 02/10/24 20:41 Dose: 0.1 mg Clonidine HCl (Clonidine Hcl 0.1 Mg Tablet) 0.1 mg PO Q4H PRN; Protocol PRN Reason: Opiate Withdrawal Glucose (Glucose Gel 15 Gm Gel..Gram.) 15 gm PO Q15M PRN; Protocol PRN Reason: per Hypoglycemia Standing Ord. Glyburide (Glyburide 2.5 Mg Tablet) 2.5 mg PO BIDWM [facility] Last Admin: 02/10/24 16:38 Dose: 2.5 mg Haloperidol (Haloperidol 5 Mg Tablet) 10 mg PO BID [facility] Last Admin: 02/10/24 20:40 Dose: 10 mg Hydroxyzine HCl (Hydroxyzine Hcl 25 Mg Tablet) 25 mg PO Q6H PRN PRN Reason: Anxiety Dextrose (D10) 250 mls @ 750 mls/hr IV Q15M PRN; Protocol PRN Reason: per Hypoglycemia Standing Ord. Insulin Glargine (Insulin Glargine,Hum.Rec.Anlog 100 Unit/Ml 10 Ml Vial) 5 unit SUBCUT DAILY [facility] Last Admin: 02/10/24 09:07 Dose: Not Given Insulin Human Lispro (Insulin Lispro 100 Unit/Ml 3 Ml Vial) 0 unit SUBCUT QIDACHS [facility]; Protocol Last Admin: 02/10/24 20:46 Dose: 12 unit Loperamide HCl (Loperamide Hcl 2 Mg Capsule) 4 mg PO Q4H PRN PRN Reason: Diarrhea Magnesium Hydroxide (Milk Of Magnesia 30 Ml Oral.Susp) 30 ml PO DAILY PRN PRN Reason: Constipation Ondansetron HCl (Ondansetron Odt 8 Mg Tab.Rapdis) 8 mg TRANSLINGU Q8H PRN PRN Reason: Nausea and Vomiting Last Admin: 02/08/24 17:48 Dose: 8 mg Prochlorperazine Maleate (Prochlorperazine Maleate 5 Mg Tablet) 10 mg PO Q4H PRN PRN Reason: Nausea Quetiapine Fumarate (Quetiapine Fumarate 100 Mg Tablet) 100 mg PO BEDTIME [facility] Last Admin: 02/10/24 20:40 Dose: 100 mg Trazodone HCl (Trazodone Hcl 50 Mg Tablet) 50 mg PO BEDTIME MRX1 PRN PRN Reason: Insomnia Allergies Allergies Allergy/AdvReac Type Severity Reaction Status Date / Time codeine AdvReac Unknown Unknown Verified 11/07/22 17:42 Assessment & Plan Assessment & Plan (1) Schizophrenia, chronic condition: Status: Acute Code(s): F20.9 - Schizophrenia, unspecified (2) PTSD (post-traumatic stress disorder): Status: Acute Code(s): F43.10 - Post-traumatic stress disorder, unspecified (3) Opioid use disorder: Status: Acute Code(s): F11.90 - Opioid use, unspecified, uncomplicated (4) Cocaine abuse: Status: Acute Code(s): F14.10 - Cocaine abuse, uncomplicated Plan Patient is a 39-year-old male with history of schizophrenia,PTSD, opioid use disorder and cocaine use disorder who was brought in by ambulance after a bystander in the community called EMS due to patient being unconscious on the street. Plan: CV 15 minute safety checks Continue medications from hx of home medications. Consult to addiction medicine referral to outpatient psychiatric providers encourage groups discharge planning 02/08: Continue current regimen and plans. 02/10: Patient reports he submitted 3 day notice over the weekend d/t feeling better and not feeling like I need to be in the hospital . Pt reports feeling okay ; he denies auditory hallucinations. Pt stated, the voices went away a couple of days ago when I started taking the medications. I don't hear them telling me to hurt anyone . Pt reports he is no longer feeling suicidal. Pt stated, I want to live because of my kids and my niece. I see my niece everyday and sometimes I stay with my sister when she lets me . Pt reports he would like to go to a longterm after discharge and have referrals for psychiatric outpatient providers. fish house worker, hamida Benavidez. Patient educated on: diagnosis, medication risk/benefits and substance abuse Reason for continued inpatient stay Substantial Risk for: med/psych decompensation Time Spent With Patient Time: Total time managing care of this patient today _20___ minutes.
[2024-02-11] MEDS: glyBURIDE 2.5 MG TABLET PO ×2 (08:55→18:05)
[2024-02-11] MEDS: HaloperidoL 5 MG TABLET 10 MG PO ×2 (08:55→21:41)
[2024-02-11] MEDS: cloNIDine HCL 0.1 MG TABLET PO ×2 (08:55→21:41)
[2024-02-11] MEDS: Insulin Lispro 100 UNIT/ML 3 ML VIAL SUBCUT ×7 (08:56→21:39)
[2024-02-11] MEDS: Insulin Glargine,Hum.rec.anlog 100 UNIT/ML 10 ML VIAL SUBCUT (08:56)
[2024-02-11 12:35] LABS: Glucose, Whole Blood 395 mg/dL (60-115)
[2024-02-11] MEDS: Insulin Glargine,Hum.rec.anlog 100 UNIT/ML 10 ML VIAL 10 UNIT SUBCUT (13:25)
[2024-02-11 15:22] VITALS: PULSE 82
[2024-02-11 17:26] LABS: Glucose, Whole Blood 281 mg/dL (60-115)
[2024-02-11 20:00] VITALS: BP 118/70; PULSE 90; RESP 16; TEMP 38.5; O2SAT 97
[2024-02-11 21:15] LABS: Glucose, Whole Blood 310 mg/dL (60-115)
[2024-02-11] MEDS: QUEtiapine Fumarate 100 MG TABLET PO (21:41)
[2024-02-11] MEDS: Benztropine Mesylate 1 MG TABLET PO (21:41)
[2024-02-12 08:41] LABS: Glucose, Whole Blood 365 mg/dL (60-115)
--- NOTE | 2024-02-12 08:49 | PM.EVENT ---
Event Note Date of Service: 02/12/24 Event Note: 39-year-old man with a history of diabetes mellitus type 2 with noted elevated blood sugars AP Continue sliding scale, Lantus Increase mealtime insulin to 7.5 units Suggest diabetic/low sugar diet Avoid sugary snacks and drinks Time Spent With Patient Time: Total time managing care of this patient today ____ minutes.
--- NOTE | 2024-02-12 08:57 | P.PNPSI_ITS ---
Subjective Subjective Date of Service: 02/12/24 Reason For Visit: Suicidal Ideation Subjective Notes: 3 Day Interim History: Reviewed with Dr. Kim. Patient reports feeling good today. Patient reports he plans on staying sober after discharge. Patient stated, I have to stay away from certain places and people to stay clean. Which I plan on doing . Patient reports he does not use opiates often; drug of choice is crack. He plans on following up with outpatient providers. Patient was encouraged to see PCP regarding his diabetes and blood sugars; patient expressed understanding. Patient denies SI/HI/VH/AH. Medication Compliance: Yes Side effects from medications: No Attending Groups: No Review of Systems Constitutional: Reports as per HPI Eyes: Reports as per HPI Reports as per HPI Cardiovascular: Reports as per HPI Respiratory: Reports as per HPI Gastrointestinal: Reports as per HPI Genitourinary: Reports as per HPI Musculoskeletal: Reports as per HPI Skin/Breast: Reports as per HPI Reports as per HPI Psychiatric: Reports as per HPI Endocrine: Reports as per HPI Hematologic/Lymphatic: Reports as per HPI Allergic/Immunologic: Reports as per HPI Mental Status Exam Mental Status Exam Narrative: Pt is alert and oriented; behavior is cooperative and calm; dressed in casual attire; mood is described as good ; eye contact appropriate; Speech is normal rate, volume and not pressured; thought process is organized and goal directed; Thought content is on discharge; denies SI/HI/VH/AH. Diagnostics Vital Signs (24Hr): Vital Signs - 24 hr 02/11/24 20:00 Temperature 101.3 F H Pulse Rate 90 Respiratory Rate 16 Blood Pressure 118/70 Pulse Oximetry 97 Oxygen Delivery Method Room Air BMI result Body Mass Index 25.9 Labs 02/09/24 08:27 Labs: Laboratory Results - last 48 hr 02/09/24 02/10/24 02/10/24 08:27 20:36 21:56 POC Glucose 483 H* 381 H* HIV 1&2 Ab/P24 Ag 4thGn Nonreactive 02/11/24 02/11/24 02/11/24 08:32 12:25 17:21 POC Glucose 390 H* 395 H* 281 H HIV 1&2 Ab/P24 Ag 4thGn 02/11/24 02/12/24 21:10 08:25 POC Glucose 310 H 365 H* HIV 1&2 Ab/P24 Ag 4thGn Imaging Radiology Impressions: ITS Impressions Chest X-Ray 02/08/24 18:15 IMPRESSION: Unremarkable examination. Electronically signed by: Mehul Samayoa MD 02/08/2024 09:29 PM EDT Medications Medications Current Medications Acetaminophen (Acetaminophen 325 Mg Tablet) 650 mg PO Q6H PRN PRN Reason: Headache/Pain Mild Scale (1-3) Last Admin: 02/10/24 13:32 Dose: 650 mg Al Hydroxide/Mg Hydroxide (Magnesium Hydrox/Alum Hydrox 30 Ml Oral.Susp) 30 ml PO Q6H PRN PRN Reason: Heartburn/Nausea Benzocaine (Benzocaine 20 % Oral Gel 9 Gm Tube) 1 appl MUCOUS MEM QID PRN; Protocol PRN Reason: Pain, Moderate(Pain Scale 4-6) Last Admin: 02/10/24 16:36 Dose: 1 appl Benztropine Mesylate (Benztropine Mesylate 1 Mg Tablet) 1 mg PO BEDTIME [facility] Last Admin: 02/11/24 21:41 Dose: 1 mg Clonidine HCl (Clonidine Hcl 0.1 Mg Tablet) 0.1 mg PO BID [facility]; Protocol Last Admin: 02/11/24 21:41 Dose: 0.1 mg Glucose (Glucose Gel 15 Gm Gel..Gram.) 15 gm PO Q15M PRN; Protocol PRN Reason: per Hypoglycemia Standing Ord. Glyburide (Glyburide 2.5 Mg Tablet) 2.5 mg PO BIDWM [facility] Last Admin: 02/11/24 18:05 Dose: 2.5 mg Haloperidol (Haloperidol 5 Mg Tablet) 10 mg PO BID [facility] Last Admin: 02/11/24 21:41 Dose: 10 mg Hydroxyzine HCl (Hydroxyzine Hcl 25 Mg Tablet) 25 mg PO Q6H PRN PRN Reason: Anxiety Dextrose (D10) 250 mls @ 750 mls/hr IV Q15M PRN; Protocol PRN Reason: per Hypoglycemia Standing Ord. Insulin Glargine (Insulin Glargine,Hum.Rec.Anlog 100 Unit/Ml 10 Ml Vial) 15 unit SUBCUT DAILY [facility] Insulin Human Lispro (Insulin Lispro 100 Unit/Ml 3 Ml Vial) 0 unit SUBCUT QIDACHS [facility]; Protocol Last Admin: 02/11/24 21:39 Dose: 10 unit Insulin Human Lispro (Insulin Lispro 100 Unit/Ml 3 Ml Vial) 7.5 unit SUBCUT QIDACHS [facility] Magnesium Hydroxide (Milk Of Magnesia 30 Ml Oral.Susp) 30 ml PO DAILY PRN PRN Reason: Constipation Ondansetron HCl (Ondansetron Odt 8 Mg Tab.Rapdis) 8 mg TRANSLINGU Q8H PRN PRN Reason: Nausea and Vomiting Last Admin: 02/08/24 17:48 Dose: 8 mg Quetiapine Fumarate (Quetiapine Fumarate 100 Mg Tablet) 100 mg PO BEDTIME [facility] Last Admin: 02/11/24 21:41 Dose: 100 mg Trazodone HCl (Trazodone Hcl 50 Mg Tablet) 50 mg PO BEDTIME MRX1 PRN PRN Reason: Insomnia Allergies Allergies Allergy/AdvReac Type Severity Reaction Status Date / Time codeine AdvReac Unknown Unknown Verified 11/07/22 17:42 Assessment & Plan Assessment & Plan (1) Schizophrenia, chronic condition: Status: Acute Code(s): F20.9 - Schizophrenia, unspecified (2) PTSD (post-traumatic stress disorder): Status: Acute Code(s): F43.10 - Post-traumatic stress disorder, unspecified (3) Opioid use disorder: Status: Acute Code(s): F11.90 - Opioid use, unspecified, uncomplicated (4) Cocaine abuse: Status: Acute Code(s): F14.10 - Cocaine abuse, uncomplicated Plan Patient is a 39-year-old male with history of schizophrenia,PTSD, opioid use disorder and cocaine use disorder who was brought in by ambulance after a bystander in the community called EMS due to patient being unconscious on the street. Plan: CV 15 minute safety checks Continue medications from hx of home medications. Consult to addiction medicine referral to outpatient psychiatric providers encourage groups discharge planning 02/08: Continue current regimen and plans. 02/10: Patient reports he submitted 3 day notice over the weekend d/t feeling better and not feeling like I need to be in the hospital . Pt reports feeling okay ; he denies auditory hallucinations. Pt stated, the voices went away a couple of days ago when I started taking the medications. I don't hear them telling me to hurt anyone . Pt reports he is no longer feeling suicidal. Pt stated, I want to live because of my kids and my niece. I see my niece everyday and sometimes I stay with my sister when she lets me . Pt reports he would like to go to a snf after discharge and have referrals for psychiatric outpatient providers. progress worker, hamida Benavidez. Patient reports feeling good today. Patient reports he plans on staying sober after discharge. Patient stated, I have to stay away from certain places and people to stay clean. Which I plan on doing . Patient reports he does not use opiates often; drug of choice is crack. He plans on following up with outpatient providers. Patient was encouraged to see PCP regarding his diabetes and blood sugars; patient expressed understanding. Patient denies SI/HI/VH/AH. Patient educated on: diagnosis, medication risk/benefits, substance abuse, therapeutic strategies and medical condition Reason for continued inpatient stay Substantial Risk for: stable for discharge Time Spent With Patient Time: Total time managing care of this patient today _20___ minutes.
[2024-02-12 09:20] VITALS: BP 110/62; PULSE 73; RESP 16; TEMP 37.6; O2SAT 98
[2024-02-12] MEDS: Insulin Lispro 100 UNIT/ML 3 ML VIAL 7 UNIT SUBCUT ×3 (09:25→20:47)
[2024-02-12] MEDS: glyBURIDE 2.5 MG TABLET PO ×2 (09:25→17:59)
[2024-02-12] MEDS: HaloperidoL 5 MG TABLET 10 MG PO ×2 (09:25→20:45)
[2024-02-12] MEDS: Insulin Glargine,Hum.rec.anlog 100 UNIT/ML 10 ML VIAL 15 UNIT SUBCUT (09:26)
[2024-02-12] MEDS: Insulin Lispro 100 UNIT/ML 3 ML VIAL SUBCUT ×3 (09:26→20:47)
[2024-02-12 09:36] VITALS: BP 101/58
[2024-02-12] MEDS: cloNIDine HCL 0.1 MG TABLET PO (09:36)
[2024-02-12 17:45] LABS: Glucose, Whole Blood 495 mg/dL (60-115)
[2024-02-12 20:00] VITALS: RESP 16
[2024-02-12] MEDS: QUEtiapine Fumarate 100 MG TABLET PO (20:45)
[2024-02-12] MEDS: Benztropine Mesylate 1 MG TABLET PO (20:46)
[2024-02-12 21:04] LABS: Glucose, Whole Blood 332 mg/dL (60-115)
[2024-02-13] VITALS: PULSE 78
[2024-02-13 08:45] LABS: Glucose, Whole Blood 525 mg/dL (60-115)
[2024-02-13] MEDS: HaloperidoL 5 MG TABLET 10 MG PO (08:56)
[2024-02-13] MEDS: Insulin Lispro 100 UNIT/ML 3 ML VIAL SUBCUT (08:57)
[2024-02-13] MEDS: glyBURIDE 2.5 MG TABLET PO (08:57)
[2024-02-13] MEDS: Insulin Lispro 100 UNIT/ML 3 ML VIAL 10 UNIT SUBCUT (08:57)
[2024-02-13] MEDS: Insulin Lispro 100 UNIT/ML 3 ML VIAL 7 UNIT SUBCUT (08:57)
[2024-02-13] MEDS: Insulin Glargine,Hum.rec.anlog 100 UNIT/ML 10 ML VIAL 15 UNIT SUBCUT (08:58)
--- NOTE | 2024-02-13 09:03 | P.DS_ITS ---
DS: Providers Provider Date of Service: 02/13/24 Date of admission: 02/08/24 00:47 Date of discharge: 02/13/24 Primary care physician: Dayne Dubose MD Admitting clinician: Lorraine Gould Attending physician on admission: Sharif Kim Consults: 02/08/24 04:17 Consult to Care Team Routine Comment: Reason for consultation: Per crisis eval, vague HI toward sister 02/08/24 07:30 Consult to Hospitalist Routine Comment: Consulting Provider: Hospitalist Reason For Exam: Direct admission 02/08/24 14:22 Addiction Medicine Stat Consulting Provider: Addiction Covering Reason for consultation: new admit, withdraw from heroin/crack Has provider been notified: No Attending physician on discharge: Sharif Kim Discharging clinician: Lorraine Gould DS: Diagnosis Discharge Diagnosis (1) Schizophrenia, chronic condition: Status: Acute (2) PTSD (post-traumatic stress disorder): Status: Acute (3) Opioid use disorder: Status: Acute (4) Cocaine abuse: Status: Acute DS: Medications Discharge Medications Home Medications: Home Medications ?Medication ?Instructions ?Recorded ?Confirmed benztropine 1 mg tablet 1 mg PO BID 02/08/24 02/08/24 clonidine HCl 0.1 mg tablet 0.1 mg PO QID 02/08/24 02/08/24 glyburide 2.5 mg tablet 2.5 mg PO BIDWM 02/08/24 02/08/24 haloperidol 10 mg tablet 10 mg PO BID 02/08/24 02/08/24 Previous Rx's ?Medication ?Instructions ?Recorded benztropine 1 mg tablet 1 mg PO BEDTIME 30 days #30 tabs 02/12/24 haloperidol 10 mg tablet 10 mg PO BID 30 days #60 tabs 02/12/24 quetiapine 100 mg tablet 100 mg PO BEDTIME 30 days #30 tabs 02/12/24 Mental Status Exam Mental Status Exam Narrative: Pt is alert and oriented; behavior is cooperative and calm; dressed in casual attire; mood is described as good ; eye contact appropriate; Speech is normal rate, volume and not pressured; thought process is organized and goal directed; Thought content is on discharge; denies SI/HI/VH/AH. Data Data Completed and Pending Completed studies during hospitalization [Text1]: 02/08/24 02/08/24 02/08/24 07:59 12:40 17:33 Sodium Potassium Chloride Carbon Dioxide Anion Gap BUN Creatinine Estim Creat Clear Calc Estimated GFR POC Glucose 312 H 401 H* 211 H Fasting Glucose Estimat Average Glucose Hemoglobin A1c % Calcium Total Bilirubin AST ALT Alkaline Phosphatase Total Protein Albumin Triglycerides Cholesterol LDL Cholesterol, Calc HDL Cholesterol HIV 1&2 Ab/P24 Ag 4thGn Influenza Type A (PCR) Influenza Type B (PCR) RSV RNA Qual (PCR) SARS-CoV-2 RNA (RT-PCR) 02/08/24 02/08/24 02/09/24 18:10 20:14 08:27 Sodium 135 Potassium 4.8 Chloride 99 Carbon Dioxide 30 H Anion Gap 11 L BUN 15 Creatinine 1.61 H Estim Creat Clear Calc 69.6 Estimated GFR 48 POC Glucose 331 H Fasting Glucose 543 H* Estimat Average Glucose 197 Hemoglobin A1c % 8.5 H Calcium 10.0 D Total Bilirubin 0.2 AST 11 ALT 27 Alkaline Phosphatase 60 Total Protein 7.8 Albumin 3.8 Triglycerides 96 Cholesterol 129 LDL Cholesterol, Calc 80 HDL Cholesterol 30 L HIV 1&2 Ab/P24 Ag 4thGn Nonreactive Influenza Type A (PCR) NEGATIVE Influenza Type B (PCR) NEGATIVE RSV RNA Qual (PCR) NEGATIVE SARS-CoV-2 RNA (RT-PCR) NEGATIVE 02/09/24 02/09/24 02/09/24 12:19 17:42 20:18 Sodium Potassium Chloride Carbon Dioxide Anion Gap BUN Creatinine Estim Creat Clear Calc Estimated GFR POC Glucose 144 H 355 H* 353 H* Fasting Glucose Estimat Average Glucose Hemoglobin A1c % Calcium Total Bilirubin AST ALT Alkaline Phosphatase Total Protein Albumin Triglycerides Cholesterol LDL Cholesterol, Calc HDL Cholesterol HIV 1&2 Ab/P24 Ag 4thGn Influenza Type A (PCR) Influenza Type B (PCR) RSV RNA Qual (PCR) SARS-CoV-2 RNA (RT-PCR) 02/10/24 02/10/24 02/11/24 20:36 21:56 08:32 Sodium Potassium Chloride Carbon Dioxide Anion Gap BUN Creatinine Estim Creat Clear Calc Estimated GFR POC Glucose 483 H* 381 H* 390 H* Fasting Glucose Estimat Average Glucose Hemoglobin A1c % Calcium Total Bilirubin AST ALT Alkaline Phosphatase Total Protein Albumin Triglycerides Cholesterol LDL Cholesterol, Calc HDL Cholesterol HIV 1&2 Ab/P24 Ag 4thGn Influenza Type A (PCR) Influenza Type B (PCR) RSV RNA Qual (PCR) SARS-CoV-2 RNA (RT-PCR) 02/11/24 02/11/24 02/11/24 12:25 17:21 21:10 Sodium Potassium Chloride Carbon Dioxide Anion Gap BUN Creatinine Estim Creat Clear Calc Estimated GFR POC Glucose 395 H* 281 H 310 H Fasting Glucose Estimat Average Glucose Hemoglobin A1c % Calcium Total Bilirubin AST ALT Alkaline Phosphatase Total Protein Albumin Triglycerides Cholesterol LDL Cholesterol, Calc HDL Cholesterol HIV 1&2 Ab/P24 Ag 4thGn Influenza Type A (PCR) Influenza Type B (PCR) RSV RNA Qual (PCR) SARS-CoV-2 RNA (RT-PCR) 02/12/24 02/12/24 02/12/24 08:25 17:41 20:32 Sodium Potassium Chloride Carbon Dioxide Anion Gap BUN Creatinine Estim Creat Clear Calc Estimated GFR POC Glucose 365 H* 495 H* 332 H Fasting Glucose Estimat Average Glucose Hemoglobin A1c % Calcium Total Bilirubin AST ALT Alkaline Phosphatase Total Protein Albumin Triglycerides Cholesterol LDL Cholesterol, Calc HDL Cholesterol HIV 1&2 Ab/P24 Ag 4thGn Influenza Type A (PCR) Influenza Type B (PCR) RSV RNA Qual (PCR) SARS-CoV-2 RNA (RT-PCR) 02/13/24 08:33 Sodium Potassium Chloride Carbon Dioxide Anion Gap BUN Creatinine Estim Creat Clear Calc Estimated GFR POC Glucose 525 H* Fasting Glucose Estimat Average Glucose Hemoglobin A1c % Calcium Total Bilirubin AST ALT Alkaline Phosphatase Total Protein Albumin Triglycerides Cholesterol LDL Cholesterol, Calc HDL Cholesterol HIV 1&2 Ab/P24 Ag 4thGn Influenza Type A (PCR) Influenza Type B (PCR) RSV RNA Qual (PCR) SARS-CoV-2 RNA (RT-PCR) Imaging Diagnostic Imaging Impressions Chest X-Ray 02/08/24 18:15 IMPRESSION: Unremarkable examination. Electronically signed by: Mehul Samayoa MD 02/08/2024 09:29 PM EDT DS: Summary Hospital Course Hospital Course: Patient is a 39-year-old male with history of schizophrenia,PTSD, opioid use disorder and cocaine use disorder who was brought in by ambulance after a bystander in the community called EMS due to patient being unconscious on the street. Per crisis report, patient reported OD on heroin, no Narcan was given. Patient reported daily heroin use. He expressed suicidal ideation and homicidal ideation. Patient reports auditory hallucinations telling him to kill his sister. He reports suicidal ideation of shooting or stabbing himself; patient does not have a firearm. Utox was not obtained in ER. During admission assessment, patient alert and oriented x3. Calm, cooperative, guarded. Patient presents guarded and irritable during assessment. Patient stated, I came to the hospital because I was feeling suicidal and overdosed. The voices tell me to hurt people but I don't listen to them patient reports suicidal ideation to shoot himself. When asked where he would obtain a weapon patient stated, from my brother . Patient reports he is currently not on psychiatric medications and is unable to recall the last time he took them. According to home medication records, last refills were in April 2023. Patient reports he does not have outpatient psychiatric providers but he is interested in obtaining them. Patient reports he has been managing his psychiatric symptoms with heroin and crack use. He reports using over 20 bags of heroin a day; patient reports interest in speaking to addiction medicine. Consult placed. Patient denies HI/VH. Patient reports when he is medication compliant he does not feel suicidal or have auditory hallucinations. Patient was unable to recall past medication trials but reports medications were helpful. Plan: CV 15 minute safety checks Continue medications from hx of home medications. Consult to addiction medicine referral to outpatient psychiatric providers encourage groups discharge planning Patient reports he submitted 3 day notice over the weekend d/t feeling better and not feeling like I need to be in the hospital . Pt reports feeling okay ; he denies auditory hallucinations. Pt stated, the voices went away a couple of days ago when I started taking the medications. I don't hear them telling me to hurt anyone . Pt reports he is no longer feeling suicidal. Pt stated, I want to live because of my kids and my niece. I see my niece everyday and sometimes I stay with my sister when she lets me . Pt reports he would like to go to a longterm after discharge and have referrals for psychiatric outpatient providers. die set up worker, hamida Benavidez. Patient reports feeling good today. Patient reports he plans on staying sober after discharge. Patient stated, I have to stay away from certain places and people to stay clean. Which I plan on doing . Patient reports he does not use opiates often; drug of choice is crack. He plans on following up with outpatient providers. Patient was encouraged to see PCP regarding his diabetes and blood sugars; patient expressed understanding. Patient denies SI/HI/VH/AH. Time spent discussing smoking cessation with patient: 3 to 10 minutes Status at Discharge Cognitive/behavioral status at discharge: Patient was interviewed prior to discharge and found to be fully oriented and without SI or HI. Patient has insight and demonstrates good judgment in terms of wanting to pursue treatment. Patient has a safety plan that includes presenting to the closest ER or calling 911 if feeling unsafe. Functional status at discharge: independent ambulation Overall status at discharge: patient is back to baseline Time Spent with Patient Time attestation: Total time managing care of this patient today _20___ minutes. Time spent: Less than 30 minutes Discharge Plan Discharge Anticipated Discharge Date/Time: 02/13/24 11:00 Patient Disposition: Longterm Discharge Diagnosis: Schizophrenia, PTSD, cocaine use d/o Referrals: Dr. Nesbitt ([facility]) [Other] - 03/25/24 9:00 am (in person appointment) Wallace Jeter ([facility] therapist) [Other] - 02/20/24 11:00 am (in person appointment) [facility] [Provider Group] - 1 Week ([facility] has been added to patients chart. Please call [phone] for a follow up appt.) Dayne Dubose MD [Primary Care Provider] - 1 Week (awaiting call from Primary Care Provider to provide emergency appt information. fax [phone]. Patient hasn't been seen in over 3 years and needs to call and schedule a new patient appt ) Discharge Medications: New benztropine 1 mg Tablet 1 mg PO BEDTIME 30 Days Qty: 30 0RF haloperidol 10 mg tablet 10 mg PO BID 30 Days Qty: 60 0RF quetiapine 100 mg Tablet 100 mg PO BEDTIME 30 Days Qty: 30 0RF metformin 500 mg tablet 500 mg PO BID 30 Days Qty: 60 0RF Continued glyburide 2.5 mg tablet 2.5 mg PO BIDWM 30 Days Qty: 60 0RF Discontinued clonidine HCl 0.1 mg Tablet 0.1 mg PO QID haloperidol 10 mg tablet 10 mg PO BID benztropine 1 mg tablet 1 mg PO BID Discharge Orders: Discharge Order (Routine); Ordered 02/13/24 Ordered By: Lorraine Gould Diet: Diabetic diet Activity on Discharge: As tolerated Stand Alone Forms: Patient Portal Discharge page, Community Support Print Language: Nepalese Care Plan Goals: Maintain mood and safe behaviors Take medications as prescribed Continue to pursue sobriety Practice coping skills Continue with outpatient providers and reach out to them as needed Health Concerns: Mood stability and behaviors Sobriety Follow up with PCP regarding diabetes and blood sugars. Plan of Treatment: Follow up with your PCP, psychiatric provider and other outpatient providers regarding above concerns Take medications as prescribed Assessment: Patient was interviewed prior to discharge and found to be fully oriented and without SI or HI. Patient has insight and demonstrates good judgment in terms of wanting to pursue treatment. Patient has a safety plan that includes presenting to the closest ER or calling 911 if feeling unsafe. Discharge Date/Time: 02/13/24 11:30
[2024-02-13] MEDS: Naloxone HCl Nasal TAKE HOME 4 MG SPRAY 8 MG NOSTRILALT (09:31)
== END 2024-02-13 11:30 | disposition home or self-care (01) | DRG 750 ==
PROVIDERS: Student in an Organized Health Care Education/Training Program; Admitting Provider Psychiatry & Neurology Psychiatry; PCP Internal Medicine; Responsible Provider Registered Nurse; Visit Provider Psychiatry & Neurology Psychiatry
DX: F20.9 Schizophrenia, unspecified (principal); I42.9 Cardiomyopathy, unspecified; F43.10 Post-traumatic stress disorder, unspecified; F17.210 Nicotine dependence, cigarettes, uncomplicated; E11.65 Type 2 diabetes mellitus with hyperglycemia; F14.10 Cocaine abuse, uncomplicated; Z20.822 Contact with and (suspected) exposure to COVID-19; Z91.148 Patient's other noncompliance with medication regimen for other reason; Z71.6 Tobacco abuse counseling; Z79.84 Long term (current) use of oral hypoglycemic drugs; Z79.899 Other long term (current) drug therapy
CPT/HCPCS: 0241U; 36415; 71045; 80053; 80061; 82947; 83036; 87389

== ENCOUNTER → 2024-02-08 00:47 | Outpatient (BNV) | payer OTHER, SELFPAY | PROVIDERS: Admitting Provider Psychiatry & Neurology Psychiatry; PCP Internal Medicine; Responsible Provider Registered Nurse; Visit Provider Student in an Organized Health Care Education/Training Program | DX: Z02.2 Encounter for examination for admission to residential institution (principal) | CPT/HCPCS: 99429; 99499 ==

== ENCOUNTER → 2024-02-08 00:47 | Outpatient (BNV) | payer OTHER, SELFPAY | PROVIDERS: Admitting Provider Psychiatry & Neurology Psychiatry; PCP Internal Medicine; Responsible Provider Registered Nurse; Visit Provider Registered Nurse | DX: F20.9 Schizophrenia, unspecified (principal); F14.10 Cocaine abuse, uncomplicated; F11.90 Opioid use, unspecified, uncomplicated; F43.11 Post-traumatic stress disorder, acute | CPT/HCPCS: 99231; 99232; 99233 ==

== ENCOUNTER 2024-06-25 22:09 | Inpatient (IN) | payer OTHER, SELFPAY ==
[2024-06-25 22:36] VITALS: BP 127/80; PULSE 70; TEMP 37.1; O2SAT 98
--- NOTE | 2024-06-26 05:19 | PC.ADMIT ---
Pt is a 39 yo male who appears older than his age and arrives on a 12b from [facility] in [place]. Hx of Schizophrenia, PTSD, DM II, polysubstance use, AVRIL, cardiomegaly. Pt was found outside on 06/22/24 after unknown downtime, presented to ED hypothermic and experiencing rhabdomyolysis. Pt currently reports active SI/HI/AH. In ED pt reported intentional overdose in attempt to kill self using alcohol, crack cocaine, and fentanyl. Pt has frostbite to bilateral feet, blister to right foot burst, left foot blister in tact on arrival. Pt endorses command AH to harm self and vague HI toward a specific person patient does not name. Pt reports has been staying in a [facility] and has been unable to access Haldol or Seroquel medications. Pt reports daily use of one bottle of alcohol as well as whatever [recreational drugs] I can get Pt states last use was at time of overdose. Pt eye contact is intense, pt otherwise pleasant, cooperative with admission.
[2024-06-26 08:00] VITALS: BP 138/89; PULSE 93; RESP 18; TEMP 36.5; O2SAT 97
[2024-06-26] MEDS: Flu Vacc TS2024-25(6mos up)/PF 0.5 ML SYRINGE IM (08:44)
[2024-06-26] MEDS: Acetaminophen 325 MG TABLET 650 MG PO ×2 (08:48→20:55)
[2024-06-26 09:58] LABS: MANUAL DIFF FLAG NO
[2024-06-26 10:07] LABS: Basophils Percent Auto 0.3 % (0-2); Eosinophils Percent Auto 0.7 % (0-4); Hematocrit 34.7 % (42.0-52.0); Imm Gran Abs Auto 0.01 X10*3/uL (0.00-0.03); Imm Gran Pct Auto 0.2 % (0.0-0.4); Lymphocytes Absolute Auto 1.5 X10*3/uL (1.2-4.9); Lymphocytes Percent Auto 25.4 % (20-40); Mean Corpuscular HGB Conc 31.7 g/dl (31.0-36.0); Mean Corpuscular Hemoglobin 24.8 pg (27.0-33.0); Mean Corpuscular Volume 78.3 fL (80.0-98.0); Mean Platelet Volume 10.4 fL (9.4-12.4); Monocytes Absolute Auto 0.5 X10*3/uL (0.1-1.2); Monocytes Percent Auto 8.2 % (2-11); Neutrophils Absolute Auto 3.9 x10*3/uL (2.0-8.3); Neutrophils Percent Auto 65.2 % (45-73); Platelet Count 239 X10*3/uL (160-400); Red Blood Count 4.43 X10*6/uL (4.60-5.80); Red Cell Distribution Width 15.6 % (11.0-16.0)
[2024-06-26 11:02] LABS: Alanine Aminotransferase 77 U/L (0-40); Albumin Level 3.7 g/dL (3.5-5.0); Alkaline Phosphatase 46 U/L (39-117); Aspartate Amino Transferase 43 U/L (5-37); Bilirubin Direct 0.1 mg/dL (0.0-0.5); Bilirubin Total 0.4 mg/dL (0.0-1.0); Cholesterol 138 mg/dL (<200); HDL Cholesterol 30 mg/dL (>40); LDL Cholesterol Calculated 80 mg/dL (<100); Total Protein 7.4 g/dL (6.5-8.0); Triglycerides 143 mg/dL (<150)
[2024-06-26 11:07] LABS: Free T4 (Free Thyroxine) 1.14 ng/dL (0.71-1.85)
[2024-06-26 11:15] LABS: Estimated Average Glucose 177 mg/dL; Hemoglobin A1C 182.1109 umol/L; Hemoglobin A1c % 7.8 % (<6.0)
[2024-06-26 11:16] LABS: Folate 14.1 ng/mL (> or = 4.0); Vitamin B12 720 pg/mL (200-900)
--- NOTE | 2024-06-26 12:45 | HO.PM.IMCN ---
History of Present Illness Data of Consult Service Date: 06/26/24 Primary Care Provider: Unknown Physician HPI Reason for consult: Admission H&P Pt is a 39-year-old male with a PMH significant for bln-nonicma-atokscxuj type 2 diabetes, cardiomyopathy, schizophrenia, and polysubstance use disorder who is admitted to [facility] psychiat[facility] unit for increasing depression and suicide attempt 4 days prior by overdosing on alcohol, crack cocaine, and fentanyl. Pt apparently was found down on the ground outside after an intentional overdose with an unknown downtime. Labs were significant for CPK of 17,563 at time of admission. Pt was treated with IVF resuscitation. Pt also was found be hypothermic at 90.5 F with frostbite on bilateral does. Pt was seen and evaluated by both wound care and plastic surgery who eventually signed off with no acute surgical intervention necessary. Hospitalist consult for admission H&P. Pt reports numbness and tingling without pain in bilateral lower extremities which is new. Reports has been wearing shoes and socks, though she was have holes in them and has been walking in no and called. Has been living in a skilled nursing and stay in their night. Denies any acute medical. No fever chills. Denies shortness or breath or difficulty breathing. No chest pain/pressure, palpitations. Denies nausea, vomiting, abdominal pain. [facility] Medical History (Updated 06/26/24 @ 15:29 by AARON Doss) Medical clearance for psychiatric admission Routine history and physical examination of adult Cardiomyopathy Cocaine abuse Cannabis abuse Diabetes Schizophrenia, chronic condition Family History Other No family history of coronary artery disease Surgical History No pertinent past surgical history Social History Household Members: None Housing: Homeless Do you presently have visiting nurse or other home services: No Patient Tobacco Use Status: Current everyday Tobacco user Tobacco use type: Cigarette Cigarette Packs Per Day: 1 Cigarettes Per Day: 20.0 Smoked in Last 30 Days: Yes e-Cigarette/Vaping Use: Never Used Patient Interested in Nicotine Replacement: Yes Patient Given Instructions on How to Stop Smoking: Yes Date Education Initiated: 06/25/24 Use of substances other than those prescribed or required for medical reasons: Yes Substance Use Type: Crack/Cocaine, Heroin, Marijuana and Opiates Substance Use Frequency: Chronic Longstanding Last Used Substance: Days (ago) Currently Displaying Signs/Symptoms of Drug Intoxication Withdrawal: No Any prior treatment program specific to substance use: Yes Advance Directives: No Advance Directives Information Provided: No Do you have thoughts of harming others: None Do you have a plan to hurt others: No Plan Recently lost weight without trying: No Nutrition Risks: No Nutritional Risk service: No Sexual orientation: Straight/Heterosexual Meds Allergies Allergy/AdvReac Type Severity Reaction Status Date / Time codeine AdvReac Unknown Unknown Verified 11/07/22 17:42 Active Medications: Current Medications Acetaminophen (Acetaminophen 325 Mg Tablet) 650 mg PO Q6H PRN PRN Reason: Headache/Pain Mild Scale (1-3) Last Admin: 06/26/24 08:48 Dose: 650 mg Al Hydroxide/Mg Hydroxide (Magnesium Hydrox/Alum Hydrox 30 Ml Oral.Susp) 30 ml PO Q6H PRN PRN Reason: Heartburn/Nausea Hydroxyzine HCl (Hydroxyzine Hcl 25 Mg Tablet) 25 mg PO Q6H PRN PRN Reason: Anxiety Magnesium Hydroxide (Milk Of Magnesia 30 Ml Oral.Susp) 30 ml PO DAILY PRN PRN Reason: Constipation Nicotine Polacrilex (Nicotine Polacrilex 2 Mg Gum) 4 mg BUCCAL Q2H PRN PRN Reason: Nicotine Cravings Trazodone HCl (Trazodone Hcl 50 Mg Tablet) 50 mg PO BEDTIME MRX1 PRN PRN Reason: Insomnia Home Medications ?Medication ?Instructions ?Recorded ?Confirmed ?Last Taken ?Type Inderal See Rx Instructions .Route .COMPLEX 06/26/24 06/26/24 Unknown History clonidine HCl 0.1 mg tablet 0.1 mg PO BEDTIME PRN Insomnia 06/26/24 06/26/24 Unknown History melatonin 3 mg tablet 6 mg PO DAILY 06/26/24 06/26/24 Unknown History metformin 500 mg tablet 1,000 mg PO BID 06/26/24 06/26/24 Unknown History Physical Exam Vital Signs and Narrative: Vital Signs: Last Vital Signs Temp 97.7 F 06/26/24 08:00 Pulse 93 06/26/24 08:00 Resp 18 06/26/24 08:00 BP 138/89 06/26/24 08:00 Pulse Ox 97 06/26/24 08:00 O2 Del Method Room Air 06/26/24 08:00 General: AOx3, no acute distress Resp: CTA bilaterally CVS: S1, S2, RRR GI: +BS, NT, no distention Skin: Warm, dry Neuro: Cranial nerves II-XII grossly intact bilaterally. Motor grossly intact bilaterally Extremities: Swelling of dorsal aspect of feet bilaterally. Dorsalis pedal pulses 2+. Right foot with intact blisters on 1st 3 digits with scant amount of clear discharge. Right 1st and 2nd digit cool to the touch with dusky appearance on pedal aspect. Intact blister on left 1st digit. Diminished sensation to light touch of toes bilaterally. As pictured below Results Labs 06/26/24 09:45 Labs: Laboratory Results - last 24 hr 06/26/24 09:45 MCV 78.3 L MCH 24.8 L MCHC 31.7 RDW 15.6 Plt Count 239 MPV 10.4 Immature Gran % (Auto) 0.2 Neut % (Auto) 65.2 Lymph % (Auto) 25.4 [place] % (Auto) 8.2 Eos % (Auto) 0.7 Baso % (Auto) 0.3 Lymph # (Auto) 1.5 [place] # (Auto) 0.5 Eos # (Auto) 0.0 Baso # (Auto) 0.0 Abs Immat Gran (auto) 0.01 Absolute Neuts (auto) 3.9 Absolute Nucleated RBC 0.000 Nucleated RBC % (auto) 0.0 Estimat Average Glucose 177 Hemoglobin A1c % 7.8 H Total Bilirubin 0.4 Direct Bilirubin 0.1 AST 43 H ALT 77 H Alkaline Phosphatase 46 Total Protein 7.4 Albumin 3.7 Triglycerides 143 Cholesterol 138 LDL Cholesterol, Calc 80 HDL Cholesterol 30 L Vitamin B12 720 Folate 14.1 TSH 0.70 Free T4 1.14 Assessment and Plan (1) Medical clearance for psychiatric admission: Status: Acute Plan Pt is a 39-year-old male with a PMH significant for qmc-kagkiuf-eoysgodsp type 2 diabetes, cardiomyopathy, schizophrenia, and polysubstance use disorder who is admitted to [facility] psychiat[facility] unit for increasing depression and suicide attempt 4 days prior by overdosing on alcohol, crack cocaine, and fentanyl. Pt apparently was found down on the ground outside after an intentional overdose with an unknown downtime. Labs were significant for CPK of 17,563 at time of admission. Pt was treated with IVF resuscitation. Pt also was found be hypothermic at 90.5 F with frostbite on bilateral does. Pt was seen and evaluated by both wound care and plastic surgery who eventually signed off with no acute surgical intervention necessary. Hospitalist consult for admission H&P. Mood disorder Plan as per psychiatry Polysubstance use disorder Pt with intentional overdose on alcohol, crack cocaine, and fentanyl on 06/22/2024 Plan as per Addiction medicine and psychiatry Frostbite Pt with frostbite on bilateral toes, worse on 1st and 2nd right digits Pt cleared by Plastic surgery without surgical intervention prior to arrival on the unit Currently no indication for emergent surgery, DP pulses 2+ Consider vascular surgery consult if condition worsens Recommendations as per wound care Tge-ytcupjq-agzxhjmxt diabetes Long hx of being poorly controlled A1c 7.8, improved from 8.5 on 02/09/2024 Reports has been taking home meds recently Continue metformin and glyburide Place on sliding scale insulin Restart Lantus 5 units at bedtime Encourage patient to follow a diabetic diet and diabetic snacking AVRIL Has not been on CPAP for some time after home machine broke Pt does not want CPAP while on the unit Thank you for allowing us to participate in the care of this patient. Signing off at this time. Please re-consult if any acute complaints or issues arise.
--- NOTE | 2024-06-26 14:41 | HO.PSYADMNOT ---
[facility] Date of Service: 06/26/24 Chief Complaint: Schizophrenia Sources of Information: patient interviewed, chart reviewed and crisis/core team assessment reviewed HPI Subjective Notes: Strange Warning and Conditional Voluntary Narrative: Patient is a 39-year-old male with history of schizophrenia, PTSD, opioid use disorder and cocaine use disorder who was brought into ED by EMS after being found unconscious near his fpc for an unknown amount of time secondary to a suicide attempt via cocaine, alcohol and fentanyl. Per crisis report, patient was found on 06/21/2024 unconscious near his fpc for an unknown amount of time. He was found to be lethargic, confused and hypothermic and having bilateral feet frostbite. Patient endorsed using IV drugs as well as alcohol and cocaine. He reported that his last cocaine and fentanyl use was a suicide attempt. He reported suicidal thoughts over the last 2 days. Patient was recently in a substance abuse program before being discharged to a fpc. Patient reports having auditory hallucinations telling him to kill himself. States he is inconsistent with taking his psychiatric medications and does not have outpatient psychiatric providers. Patient was treated for rhabdomyolysis in ED. During admission assessment, patient presents alert and oriented x3. Calm and cooperative. Guarded. Patient reports he has not been taking his psychiatric medications for 2 weeks after leaving substance abuse program. He reports he relapsed due to the auditory hallucinations. Patient reports he has been using crack daily. He states that he was not trying to kill myself; I was just trying to get high. I smoked crack and fentanyl and drank a wine cooler . Patient reports he does not have psychiatric providers because he has not followed up with outpatient referrals. He reports auditory hallucinations of a voice telling him to kill himself and visual hallucinations of his cousin . denies SI/HI. Patient reports he would like help getting back on his medications and help with my voices . Wound consult placed for bilateral toes. Restart home medications. Past Psychiatric History: -Hx of multiple inpatient psychiatric admissions. Patient unable to specify dates. Patient was section 35 in 12/2023. hx of decompensation in the context of non-adherence. outpt: none current Patient reports history of 5-6 suicide attempts but does not specify details. Medical Evaluation Reviewed: Yes [facility] Medical History Medical clearance for psychiatric admission Routine history and physical examination of adult Cardiomyopathy Cocaine abuse Cannabis abuse Diabetes Schizophrenia, chronic condition Surgical History No pertinent past surgical history Family History: -Bio mom: schizophrenia -Bio dad: alcohol use disorder. schizophrenia. Social History: -Born and raised in [place], [place], has bio parents and sister. homeless. Highest level of education completed was 9th grade. Disability. Substance History: Alcohol use, crack cocaine, fentanyl. Trauma History: Yes Diagnostics Vital Signs (24Hr): Vital Signs - 24 hr 06/25/24 22:36 06/26/24 08:00 Temperature 98.7 F 97.7 F Pulse Rate 70 93 Respiratory Rate 18 Blood Pressure 127/80 138/89 Pulse Oximetry 98 97 Oxygen Delivery Method Room Air Room Air Labs 06/26/24 09:45 Labs: Laboratory Results - last 48 hr 06/26/24 09:45 WBC 6.0 RBC 4.43 L Hgb 11.0 L Hct 34.7 L MCV 78.3 L MCH 24.8 L MCHC 31.7 RDW 15.6 Plt Count 239 MPV 10.4 Immature Gran % (Auto) 0.2 Neut % (Auto) 65.2 Lymph % (Auto) 25.4 Day % (Auto) 8.2 Eos % (Auto) 0.7 Baso % (Auto) 0.3 Lymph # (Auto) 1.5 Day # (Auto) 0.5 Eos # (Auto) 0.0 Baso # (Auto) 0.0 Abs Immat Gran (auto) 0.01 Absolute Neuts (auto) 3.9 Absolute Nucleated RBC 0.000 Nucleated RBC % (auto) 0.0 Estimat Average Glucose 177 Hemoglobin A1c % 7.8 H Total Bilirubin 0.4 Direct Bilirubin 0.1 AST 43 H ALT 77 H Alkaline Phosphatase 46 Total Protein 7.4 Albumin 3.7 Triglycerides 143 Cholesterol 138 LDL Cholesterol, Calc 80 HDL Cholesterol 30 L Vitamin B12 720 Folate 14.1 TSH 0.70 Free T4 1.14 Meds/Allergies Meds Home Medications ?Medication ?Instructions ?Recorded ?Confirmed ?Type Inderal See Rx Instructions .Route .COMPLEX 06/26/24 06/26/24 History clonidine HCl 0.1 mg tablet 0.1 mg PO BEDTIME PRN Insomnia 06/26/24 06/26/24 History melatonin 3 mg tablet 6 mg PO DAILY 06/26/24 06/26/24 History metformin 500 mg tablet 1,000 mg PO BID 06/26/24 06/26/24 History Allergies Allergies Allergy/AdvReac Type Severity Reaction Status Date / Time codeine AdvReac Unknown Unknown Verified 11/07/22 17:42 Mental Status Exam Mental Status Exam Patient Appearance: Appropriate Patient Orientation: Person, Place, Time and Situation Level of Consciousness: Awake and Alert Patient Behavior: Guarded and Poor Eye Contact Mood Description: Depressed Affect Description: Blunted Ability to Follow Directions: Good Speech Pattern: Clear Memory Description: Intact Hallucinations: Auditory and Visual Delusions: Not Present Thought Process: Intact and Goal Oriented Thought Content: positive for Intact Judgement: Poor Assessment & Plan Assessment & Plan (1) Schizophrenia, chronic condition: Status: Acute Code(s): F20.9 - Schizophrenia, unspecified (2) PTSD (post-traumatic stress disorder): Status: Acute Code(s): F43.10 - Post-traumatic stress disorder, unspecified (3) Opioid use disorder: Status: Acute Code(s): F11.90 - Opioid use, unspecified, uncomplicated (4) Cocaine abuse: Status: Acute Code(s): F14.10 - Cocaine abuse, uncomplicated Plan Patient is a 39-year-old male with history of schizophrenia, PTSD, opioid use disorder and cocaine use disorder who was brought into ED by EMS after being found unconscious near his fpc for an unknown amount of time secondary to a suicide attempt via cocaine, alcohol and fentanyl. Plan: CV 15 minute safety checks Continue home medications Wound care consult for bilateral toes Encourage groups Discharge planning Patient educated on: diagnosis and medication risk/benefits Reason for continued inpatient stay Substantial Risk for: med/psych decompensation Statement Statement: I have reviewed the history and physical and performed a pertinent examination on my patient. No changes have occurred unless specified. If the History and Physical was not performed prior to admission, the Hospitalist's service will be consulted for completing the admission physical. Time Spent With Patient Time: Total time managing care of this patient today _60___ minutes.
[2024-06-26] MEDS: Nicotine Polacrilex 2 MG GUM 4 MG BUCCAL (14:43)
[2024-06-26] MEDS: hydrOXYzine HCL 25 MG TABLET PO (14:43)
--- NOTE | 2024-06-26 14:55 | HO.WOUND ---
Addendum entered by Ilene Sanders RN 06/26/24 15:17: Bilateral Strong Pedal Pulses are noted. Original Note: Wound Consult: Initial 39yr old?male admitted to [facility] on 06/25/24 22:09 to the Behavioral Health Unit - See progress notes and H&P for detailed history.? Wound consult placed for Bilateral Feet Frostbite on admission.? Patient agreeable to assessment and photo documentation.? Patient is not able to provide clear dates and time line of injury. He reports he is homeless and was sleeping in a senior care. He reports he was wearing shoes and socks however they were often wet and cold and the shoes had holes in them, he confirms exposure to ice and snow and cold water. The patient reports he feels this started approximately 1-2 weeks ago. He reports he was at an outside facility and his feet were assessed by a medical provider but does not recall the treatments if any where applied. AARON Doss with the medical service team was on the unit and asked to assess the patient feet prior to re-dressing. The right great toe and 2nd toe are of most concern. The patient has no sensation / feeling in those toes and appears to return mid foot. He denies pain to toes and feet. The right Great toe and 2nd toe are cool to touch. See photos and details below. Standard Guidelines / Protocol for Frostbite care includes: Rewarming, Tetanus Prophylaxis, Analgesics, Antibiotics, Ibuprofen, Topical treatments such as aloe vera, Limb elevation, Limited ambulation until edema resolved, smoking cessation and hydrotherapy. Topical recommendations below and although patient has strong Pedal pulses recommend vascular consult given concern for right great and 2nd toe. Right Foot Left Foot Etiology: ?Frostbite Wound Bed: Weeping blisters - weeping serous fluid. The left foot / toes are of less concern the right great toe and 2nd toe are cool to touch and white purple coloring nonblanchable tissue Drainage / Odor: no odor moderate amount of serous fluid Edges: ? defined Goals of Treatment: ? Provider consult - rewarming, leg elevation and moist wound healing Recommendations: 1. Provide adequate and supplemental nutrition.? 2. When applicable maintain blood glucose levels per Providers order. 3. Elevate lower legs on pillows, limit standing and walking while edema is present. 4. Bilateral Foot and Toes - Warm water soaks 3-4 times a day, may use mild soap / antibacterial soap, pay dry. Cover blisters with xeroform, dry gauze, ABD pad, and Elastic netting to secure in place. Change Daily or after soaks are provided. Elevate legs on pillows limit walking and standing while edema is present. Re-consult wound care Nurse for wound deterioration or wound changes.
--- NOTE | 2024-06-26 15:02 | PC.NURSE ---
Pt signed a 3 day notice and appropriate persons all notified
[2024-06-26 15:26] VITALS: BP 124/79
[2024-06-26] MEDS: HaloperidoL 5 MG TABLET 10 MG PO ×2 (15:26→20:54)
[2024-06-26] MEDS: cloNIDine HCL 0.1 MG TABLET PO ×2 (15:26→20:55)
--- NOTE | 2024-06-26 15:55 | PC.NURSE ---
Pt seen by Ilene Manzo wound care nurse, and recommendations made for dressing changes/care. Warm water soaks done and re dressed with xeroform and abdominal pads and secured with mesh netting. Encouraged to elevate BLE when in bed.
[2024-06-26 17:31] LABS: Glucose, Whole Blood 369 mg/dL (60-115)
[2024-06-26] MEDS: Insulin Lispro 100 UNIT/ML 3 ML VIAL SUBCUT ×2 (17:46→20:52)
[2024-06-26] MEDS: glyBURIDE 2.5 MG TABLET PO (17:47)
--- NOTE | 2024-06-26 17:47 | PC.NURSE ---
Hospitalist aundrea notified of POC glucose 369- no further orders received.
[2024-06-26 19:52] VITALS: BP 102/54; PULSE 83; RESP 16; TEMP 36.8; O2SAT 100
[2024-06-26 20:43] LABS: Glucose, Whole Blood 288 mg/dL (60-115)
[2024-06-26] MEDS: Insulin Glargine,Hum.rec.anlog 100 UNIT/ML 10 ML VIAL SUBCUT (20:53)
[2024-06-26] MEDS: Melatonin 3 MG TABLET 6 MG PO (20:54)
[2024-06-26] MEDS: Benztropine Mesylate 1 MG TABLET PO (20:54)
[2024-06-26 20:55] VITALS: BP 126/77
[2024-06-26] MEDS: QUEtiapine Fumarate 100 MG TABLET PO (20:55)
[2024-06-27 08:17] LABS: Glucose, Whole Blood 245 mg/dL (60-115)
[2024-06-27] MEDS: Insulin Lispro 100 UNIT/ML 3 ML VIAL SUBCUT ×4 (08:58→21:53)
--- NOTE | 2024-06-27 10:23 | P.PNPSI_ITS ---
Subjective Subjective Date of Service: 06/27/24 Reason For Visit: Schizophrenia Interim History: Met with patient; discussed with team Patient refused medications this morning; remains mostly isolative and difficult with which to engage. With public relations writer he says that he still depressed. Numerical Control Lathe Operator asked why did take his medications and he said he just in feel like it but that he would take them now. Mental Status Exam Mental Status Exam Patient Appearance: Appropriate Patient Orientation: Person, Place, Time and Situation Level of Consciousness: Awake and Alert Patient Behavior: Guarded and Poor Eye Contact Mood Description: Depressed Affect Description: Blunted Ability to Follow Directions: Fair Speech Pattern: Clear Memory Description: Intact Hallucinations: Auditory and Visual Delusions: Not Present Thought Process: Intact and Goal Oriented Thought Content: positive for Intact Judgement and Insight: Impaired Diagnostics Vital Signs (24Hr): Vital Signs - 24 hr 06/26/24 15:26 06/26/24 19:52 06/26/24 20:55 Temperature 98.2 F Pulse Rate 83 Respiratory Rate 16 Blood Pressure 124/79 102/54 L 126/77 Pulse Oximetry 100 Oxygen Delivery Method Room Air Labs 06/26/24 09:45 Labs: Laboratory Results - last 48 hr 06/26/24 06/26/24 06/26/24 09:45 17:25 20:38 WBC 6.0 RBC 4.43 L Hgb 11.0 L Hct 34.7 L MCV 78.3 L MCH 24.8 L MCHC 31.7 RDW 15.6 Plt Count 239 MPV 10.4 Immature Gran % (Auto) 0.2 Neut % (Auto) 65.2 Lymph % (Auto) 25.4 [place] % (Auto) 8.2 Eos % (Auto) 0.7 Baso % (Auto) 0.3 Lymph # (Auto) 1.5 [place] # (Auto) 0.5 Eos # (Auto) 0.0 Baso # (Auto) 0.0 Abs Immat Gran (auto) 0.01 Absolute Neuts (auto) 3.9 Absolute Nucleated RBC 0.000 Nucleated RBC % (auto) 0.0 POC Glucose 369 H* 288 H Estimat Average Glucose 177 Hemoglobin A1c % 7.8 H Total Bilirubin 0.4 Direct Bilirubin 0.1 AST 43 H ALT 77 H Alkaline Phosphatase 46 Total Protein 7.4 Albumin 3.7 Triglycerides 143 Cholesterol 138 LDL Cholesterol, Calc 80 HDL Cholesterol 30 L Vitamin B12 720 Folate 14.1 TSH 0.70 Free T4 1.14 06/27/24 08:10 WBC RBC Hgb Hct MCV MCH MCHC RDW Plt Count MPV Immature Gran % (Auto) Neut % (Auto) Lymph % (Auto) [place] % (Auto) Eos % (Auto) Baso % (Auto) Lymph # (Auto) [place] # (Auto) Eos # (Auto) Baso # (Auto) Abs Immat Gran (auto) Absolute Neuts (auto) Absolute Nucleated RBC Nucleated RBC % (auto) POC Glucose 245 H Estimat Average Glucose Hemoglobin A1c % Total Bilirubin Direct Bilirubin AST ALT Alkaline Phosphatase Total Protein Albumin Triglycerides Cholesterol LDL Cholesterol, Calc HDL Cholesterol Vitamin B12 Folate TSH Free T4 Medications Medications Current Medications Acetaminophen (Acetaminophen 325 Mg Tablet) 650 mg PO Q6H PRN PRN Reason: Headache/Pain Mild Scale (1-3) Last Admin: 06/26/24 20:55 Dose: 650 mg Al Hydroxide/Mg Hydroxide (Magnesium Hydrox/Alum Hydrox 30 Ml Oral.Susp) 30 ml PO Q6H PRN PRN Reason: Heartburn/Nausea Benztropine Mesylate (Benztropine Mesylate 1 Mg Tablet) 1 mg PO BEDTIME ASHLEY Last Admin: 06/26/24 20:54 Dose: 1 mg Clonidine HCl (Clonidine Hcl 0.1 Mg Tablet) 0.1 mg PO BID ASHLEY; Protocol Last Admin: 06/26/24 20:55 Dose: 0.1 mg Dextrose (Dextrose 50 % 25 Gm/50 Ml Syringe) 25 gm IVPUSH Q15M PRN; Protocol PRN Reason: per Hypoglycemia Standing Ord. Glucose (Glucose Gel 15 Gm Gel..Gram.) 15 gm PO Q15M PRN; Protocol PRN Reason: per Hypoglycemia Standing Ord. Glyburide (Glyburide 2.5 Mg Tablet) 2.5 mg PO BIDWM ASHLEY Last Admin: 06/26/24 17:47 Dose: 2.5 mg Haloperidol (Haloperidol 5 Mg Tablet) 10 mg PO BID ASHLEY Last Admin: 06/26/24 20:54 Dose: 10 mg Hydroxyzine HCl (Hydroxyzine Hcl 25 Mg Tablet) 25 mg PO Q6H PRN PRN Reason: Anxiety Last Admin: 06/26/24 14:43 Dose: 25 mg Insulin Glargine (Insulin Glargine,Hum.Rec.Anlog 100 Unit/Ml 10 Ml Vial) 5 unit SUBCUT BEDTIME [facility] Last Admin: 06/26/24 20:53 Dose: 5 unit Insulin Human Lispro (Insulin Lispro 100 Unit/Ml 3 Ml Vial) 0 unit SUBCUT QIDACHS [facility]; Protocol Last Admin: 06/27/24 08:58 Dose: 4 unit Magnesium Hydroxide (Milk Of Magnesia 30 Ml Oral.Susp) 30 ml PO DAILY PRN PRN Reason: Constipation Melatonin (Melatonin 3 Mg Tablet) 6 mg PO BEDTIME [facility] Last Admin: 06/26/24 20:54 Dose: 6 mg Nicotine Polacrilex (Nicotine Polacrilex 2 Mg Gum) 4 mg BUCCAL Q2H PRN PRN Reason: Nicotine Cravings Last Admin: 06/26/24 14:43 Dose: 4 mg Quetiapine Fumarate (Quetiapine Fumarate 100 Mg Tablet) 100 mg PO BEDTIME [facility] Last Admin: 06/26/24 20:55 Dose: 100 mg Trazodone HCl (Trazodone Hcl 50 Mg Tablet) 50 mg PO BEDTIME MRX1 PRN PRN Reason: Insomnia Allergies Allergies Allergy/AdvReac Type Severity Reaction Status Date / Time codeine AdvReac Unknown Unknown Verified 11/07/22 17:42 Assessment & Plan Assessment & Plan (1) Schizophrenia, chronic condition: Status: Acute Code(s): F20.9 - Schizophrenia, unspecified (2) PTSD (post-traumatic stress disorder): Status: Acute Code(s): F43.10 - Post-traumatic stress disorder, unspecified (3) Opioid use disorder: Status: Acute Code(s): F11.90 - Opioid use, unspecified, uncomplicated (4) Cocaine abuse: Status: Acute Code(s): F14.10 - Cocaine abuse, uncomplicated (5) Medical clearance for psychiatric admission: Status: Acute Code(s): Z00.8 - Encounter for other general examination Plan Patient is a 39-year-old male with history of schizophrenia, PTSD, opioid use disorder and cocaine use disorder who was brought into ED by EMS after being found unconscious near his intermediate for an unknown amount of time secondary to a suicide attempt via cocaine, alcohol and fentanyl. 2/7 difficult with which to engage. Reports still depressed. Refuse medications earlier however later on said he take them Plan: CV 15 minute safety checks Continue home medications Wound care consult for bilateral toes Encourage groups Discharge planning Patient educated on: diagnosis and medication risk/benefits Informed Consent: understands and further education needed Reason for continued inpatient stay Substantial Risk for: rapid decompensation Time Spent With Patient Time: Total time managing care of this patient today ____ minutes.
--- NOTE | 2024-06-27 10:42 | MHC.CLN ---
NUTRITION CONSULT FOR POSSIBLE NUTRITION SUPPORT DUE TO BILATERAL FROSTBITE. ADDING ENSURE MAX BID TO PROMOTE SKIN INTEGRITY AND NUTRITIONAL INTAKE. SUPPLEMENT PROVIDES 300 [address]ALS, [address] AVAILABLE NEEDED BY CONSULT.
[2024-06-27 12:19] LABS: Glucose, Whole Blood 195 mg/dL (60-115)
--- NOTE | 2024-06-27 13:24 | MHC.RECOVRN ---
Attempted to meet with pt after receiving Addiction Medicine consult for polysubstance use. Pt laying in bed, eyes closed, wakes to voice. Upon introducing self, pt declines meeting with t/w. Encouraged pt to notify RN if he would like to meet with Addiction/Recovery. Denies questions or concerns at this time. Shani Rush APRN, aware.
[2024-06-27] MEDS: Acetaminophen 325 MG TABLET 650 MG PO ×2 (14:17→21:38)
[2024-06-27 17:10] LABS: Glucose, Whole Blood 395 mg/dL (60-115)
[2024-06-27] MEDS: glyBURIDE 2.5 MG TABLET PO (17:43)
[2024-06-27 19:56] VITALS: BP 115/58; PULSE 72; RESP 20; TEMP 36.6; O2SAT 99
[2024-06-27 19:56] LABS: Glucose, Whole Blood 324 mg/dL (60-115)
[2024-06-27] MEDS: HaloperidoL 5 MG TABLET 10 MG PO (21:35)
[2024-06-27] MEDS: Benztropine Mesylate 1 MG TABLET PO (21:35)
[2024-06-27] MEDS: cloNIDine HCL 0.1 MG TABLET PO (21:35)
[2024-06-27] MEDS: Melatonin 3 MG TABLET 6 MG PO (21:36)
[2024-06-27] MEDS: QUEtiapine Fumarate 100 MG TABLET PO (21:37)
[2024-06-27] MEDS: Insulin Glargine,Hum.rec.anlog 100 UNIT/ML 10 ML VIAL SUBCUT (21:52)
--- NOTE | 2024-06-28 08:17 | HO.PSYCHPN ---
Subjective Subjective Date of Service: 06/28/24 Reason For Visit: Schizophrenia Interim History: Met with patient; discussed with team. Seen in room. Reports that he is doing better. Speaks very frankly when asked around Improvements he has noticed am not depressed. I am not high . Reports also feeling excited to see his sister in [place] whom he has not seen in a number of months. Denies suicidal thoughts. Denies feeling paranoid. Denies hallucinations. Sleep energy and appetite okay. No medication concerns- Did take scheduled medications. Medication Compliance: Yes Side effects from medications: No Attending Groups: No Review of Systems Acute medical concerns: No Review of Systems Review of Systems nothing new Mental Status Exam Mental Status Exam Patient Appearance: Appropriate Patient Orientation: Person, Place, Time and Situation Level of Consciousness: Awake and Alert Patient Behavior: Guarded (less), Cooperative and Isolative Mood Description: Calm and Appropriate Affect Description: Blunted Ability to Follow Directions: Fair Speech Pattern: Clear Memory Description: Intact Diagnostics Vital Signs (24Hr): Vital Signs - 24 hr 06/27/24 19:56 Temperature 98 F Pulse Rate 72 Respiratory Rate 20 Blood Pressure 115/58 L Pulse Oximetry 99 Oxygen Delivery Method Room Air Labs 06/26/24 09:45 Labs: Laboratory Results - last 48 hr 06/26/24 06/26/24 06/26/24 09:45 17:25 20:38 WBC 6.0 RBC 4.43 L Hgb 11.0 L Hct 34.7 L MCV 78.3 L MCH 24.8 L MCHC 31.7 RDW 15.6 Plt Count 239 MPV 10.4 Immature Gran % (Auto) 0.2 Neut % (Auto) 65.2 Lymph % (Auto) 25.4 [place] % (Auto) 8.2 Eos % (Auto) 0.7 Baso % (Auto) 0.3 Lymph # (Auto) 1.5 [place] # (Auto) 0.5 Eos # (Auto) 0.0 Baso # (Auto) 0.0 Abs Immat Gran (auto) 0.01 Absolute Neuts (auto) 3.9 Absolute Nucleated RBC 0.000 Nucleated RBC % (auto) 0.0 POC Glucose 369 H* 288 H Estimat Average Glucose 177 Hemoglobin A1c % 7.8 H Total Bilirubin 0.4 Direct Bilirubin 0.1 AST 43 H ALT 77 H Alkaline Phosphatase 46 Total Protein 7.4 Albumin 3.7 Triglycerides 143 Cholesterol 138 LDL Cholesterol, Calc 80 HDL Cholesterol 30 L Vitamin B12 720 Folate 14.1 TSH 0.70 Free T4 1.14 06/27/24 06/27/24 06/27/24 08:10 12:16 17:06 WBC RBC Hgb Hct MCV MCH MCHC RDW Plt Count MPV Immature Gran % (Auto) Neut % (Auto) Lymph % (Auto) [place] % (Auto) Eos % (Auto) Baso % (Auto) Lymph # (Auto) [place] # (Auto) Eos # (Auto) Baso # (Auto) Abs Immat Gran (auto) Absolute Neuts (auto) Absolute Nucleated RBC Nucleated RBC % (auto) POC Glucose 245 H 195 H 395 H* Estimat Average Glucose Hemoglobin A1c % Total Bilirubin Direct Bilirubin AST ALT Alkaline Phosphatase Total Protein Albumin Triglycerides Cholesterol LDL Cholesterol, Calc HDL Cholesterol Vitamin B12 Folate TSH Free T4 06/27/24 19:51 WBC RBC Hgb Hct MCV MCH MCHC RDW Plt Count MPV Immature Gran % (Auto) Neut % (Auto) Lymph % (Auto) [place] % (Auto) Eos % (Auto) Baso % (Auto) Lymph # (Auto) [place] # (Auto) Eos # (Auto) Baso # (Auto) Abs Immat Gran (auto) Absolute Neuts (auto) Absolute Nucleated RBC Nucleated RBC % (auto) POC Glucose 324 H Estimat Average Glucose Hemoglobin A1c % Total Bilirubin Direct Bilirubin AST ALT Alkaline Phosphatase Total Protein Albumin Triglycerides Cholesterol LDL Cholesterol, Calc HDL Cholesterol Vitamin B12 Folate TSH Free T4 Medications Medications Current Medications Acetaminophen (Acetaminophen 325 Mg Tablet) 650 mg PO Q6H PRN PRN Reason: Headache/Pain Mild Scale (1-3) Last Admin: 06/27/24 21:38 Dose: 650 mg Al Hydroxide/Mg Hydroxide (Magnesium Hydrox/Alum Hydrox 30 Ml Oral.Susp) 30 ml PO Q6H PRN PRN Reason: Heartburn/Nausea Benztropine Mesylate (Benztropine Mesylate 1 Mg Tablet) 1 mg PO BEDTIME ASHLEY Last Admin: 06/27/24 21:35 Dose: 1 mg Clonidine HCl (Clonidine Hcl 0.1 Mg Tablet) 0.1 mg PO BID ASHLEY; Protocol Last Admin: 06/27/24 21:35 Dose: 0.1 mg Dextrose (Dextrose 50 % 25 Gm/50 Ml Syringe) 25 gm IVPUSH Q15M PRN; Protocol PRN Reason: per Hypoglycemia Standing Ord. Glucose (Glucose Gel 15 Gm Gel..Gram.) 15 gm PO Q15M PRN; Protocol PRN Reason: per Hypoglycemia Standing Ord. Glyburide (Glyburide 2.5 Mg Tablet) 2.5 mg PO BIDWM [facility] Last Admin: 06/27/24 17:43 Dose: 2.5 mg Haloperidol (Haloperidol 5 Mg Tablet) 10 mg PO BID [facility] Last Admin: 06/27/24 21:35 Dose: 10 mg Hydroxyzine HCl (Hydroxyzine Hcl 25 Mg Tablet) 25 mg PO Q6H PRN PRN Reason: Anxiety Last Admin: 06/26/24 14:43 Dose: 25 mg Insulin Glargine (Insulin Glargine,Hum.Rec.Anlog 100 Unit/Ml 10 Ml Vial) 5 unit SUBCUT BEDTIME [facility] Last Admin: 06/27/24 21:52 Dose: 5 unit Insulin Human Lispro (Insulin Lispro 100 Unit/Ml 3 Ml Vial) 0 unit SUBCUT QIDACHS [facility]; Protocol Last Admin: 06/27/24 21:53 Dose: 10 unit Magnesium Hydroxide (Milk Of Magnesia 30 Ml Oral.Susp) 30 ml PO DAILY PRN PRN Reason: Constipation Melatonin (Melatonin 3 Mg Tablet) 6 mg PO BEDTIME [facility] Last Admin: 06/27/24 21:36 Dose: 6 mg Nicotine Polacrilex (Nicotine Polacrilex 2 Mg Gum) 4 mg BUCCAL Q2H PRN PRN Reason: Nicotine Cravings Last Admin: 06/26/24 14:43 Dose: 4 mg Quetiapine Fumarate (Quetiapine Fumarate 100 Mg Tablet) 100 mg PO BEDTIME [facility] Last Admin: 06/27/24 21:37 Dose: 100 mg Trazodone HCl (Trazodone Hcl 50 Mg Tablet) 50 mg PO BEDTIME MRX1 PRN PRN Reason: Insomnia Allergies Allergies Allergy/AdvReac Type Severity Reaction Status Date / Time codeine AdvReac Unknown Unknown Verified 11/07/22 17:42 Assessment & Plan Assessment & Plan (1) Schizophrenia, chronic condition: Status: Acute Code(s): F20.9 - Schizophrenia, unspecified (2) PTSD (post-traumatic stress disorder): Status: Acute Code(s): F43.10 - Post-traumatic stress disorder, unspecified (3) Opioid use disorder: Status: Acute Code(s): F11.90 - Opioid use, unspecified, uncomplicated (4) Cocaine abuse: Status: Acute Code(s): F14.10 - Cocaine abuse, uncomplicated (5) Medical clearance for psychiatric admission: Status: Acute Code(s): Z00.8 - Encounter for other general examination Plan Patient is a 39-year-old male with history of schizophrenia, PTSD, opioid use disorder and cocaine use disorder who was brought into ED by EMS after being found unconscious near his long-term for an unknown amount of time secondary to a suicide attempt via cocaine, alcohol and fentanyl. 2 difficult with which to engage. Reports still depressed. Refuse medications earlier however later on said he take them 06/28: no changes. Took scheduled meds Plan: CV 15 minute safety checks Continue home medications Wound care consult for bilateral toes Encourage groups Discharge planning Reason for continued inpatient stay Substantial Risk for: inability to function and rapid decompensation Time Spent With Patient Time: Total time managing care of this patient today ____ minutes.
[2024-06-28 08:33] LABS: Glucose, Whole Blood 298 mg/dL (60-115)
[2024-06-28 08:40] VITALS: BP 148/68; PULSE 92; RESP 18; TEMP 36.8; O2SAT 99
[2024-06-28] MEDS: Acetaminophen 325 MG TABLET 650 MG PO (08:52)
[2024-06-28] MEDS: cloNIDine HCL 0.1 MG TABLET PO ×2 (08:52→21:48)
[2024-06-28] MEDS: Insulin Lispro 100 UNIT/ML 3 ML VIAL SUBCUT ×4 (08:53→21:50)
[2024-06-28] MEDS: HaloperidoL 5 MG TABLET 10 MG PO ×2 (08:55→21:49)
[2024-06-28] MEDS: glyBURIDE 2.5 MG TABLET PO ×2 (08:55→17:32)
[2024-06-28 12:44] LABS: Glucose, Whole Blood 299 mg/dL (60-115)
[2024-06-28] MEDS: Ibuprofen 600 MG TABLET PO ×2 (13:03→21:49)
[2024-06-28 17:30] LABS: Glucose, Whole Blood 300 mg/dL (60-115)
[2024-06-28 19:39] VITALS: BP 116/65; PULSE 79; RESP 18; TEMP 36.6; O2SAT 99
[2024-06-28 21:37] LABS: Glucose, Whole Blood 318 mg/dL (60-115)
[2024-06-28] MEDS: Melatonin 3 MG TABLET 6 MG PO (21:49)
[2024-06-28] MEDS: Insulin Glargine,Hum.rec.anlog 100 UNIT/ML 10 ML VIAL SUBCUT (21:50)
[2024-06-28] MEDS: QUEtiapine Fumarate 100 MG TABLET PO (21:50)
[2024-06-28] MEDS: Benztropine Mesylate 1 MG TABLET PO (21:50)
[2024-06-29 07:56] LABS: Glucose, Whole Blood 243 mg/dL (60-115)
[2024-06-29] MEDS: cloNIDine HCL 0.1 MG TABLET PO (08:14)
[2024-06-29] MEDS: HaloperidoL 5 MG TABLET 10 MG PO ×2 (08:14→20:14)
[2024-06-29] MEDS: glyBURIDE 2.5 MG TABLET PO (08:14)
[2024-06-29] MEDS: Insulin Lispro 100 UNIT/ML 3 ML VIAL SUBCUT ×4 (08:16→20:14)
[2024-06-29 08:17] VITALS: BP 107/66; PULSE 74; RESP 16; TEMP 36.4; O2SAT 98
--- NOTE | 2024-06-29 11:23 | HO.PSYCHPN ---
Subjective Subjective Date of Service: 06/29/24 Reason For Visit: Schizophrenia Subjective Notes: 3 Day Interim History: Overall reports things are going okay. Denies feeling depressed. Looking forward to discharge planning and spending time with family. Denies hallucinations or SI. Encouraged to get repeat blood testing given rhabdomyolysis before admission. Medication Compliance: Yes Side effects from medications: No Attending Groups: No Review of Systems Acute medical concerns: No Review of Systems Review of Systems nothing new Mental Status Exam Mental Status Exam Patient Appearance: Appropriate Patient Orientation: Person, Place, Time and Situation Level of Consciousness: Awake and Alert Patient Behavior: Guarded (less), Cooperative and Isolative Mood Description: Calm and Appropriate Affect Description: Blunted Ability to Follow Directions: Fair Speech Pattern: Clear Memory Description: Intact Diagnostics Vital Signs (24Hr): Vital Signs - 24 hr 06/28/24 19:39 06/29/24 08:17 Temperature 97.8 F 97.6 F Pulse Rate 79 74 Respiratory Rate 18 16 Blood Pressure 116/65 107/66 Pulse Oximetry 99 98 Oxygen Delivery Method Room Air Room Air Labs 06/26/24 09:45 Labs: Laboratory Results - last 48 hr 06/27/24 06/27/24 06/27/24 12:16 17:06 19:51 POC Glucose 195 H 395 H* 324 H 06/28/24 06/28/24 06/28/24 08:24 12:39 17:26 POC Glucose 298 H 299 H 300 H 06/28/24 06/29/24 21:34 07:47 POC Glucose 318 H 243 H Medications Medications Current Medications Acetaminophen (Acetaminophen 325 Mg Tablet) 650 mg PO Q6H PRN PRN Reason: Headache/Pain Mild Scale (1-3) Last Admin: 06/28/24 08:52 Dose: 650 mg Al Hydroxide/Mg Hydroxide (Magnesium Hydrox/Alum Hydrox 30 Ml Oral.Susp) 30 ml PO Q6H PRN PRN Reason: Heartburn/Nausea Benztropine Mesylate (Benztropine Mesylate 1 Mg Tablet) 1 mg PO BEDTIME ASHLEY Last Admin: 06/28/24 21:50 Dose: 1 mg Clonidine HCl (Clonidine Hcl 0.1 Mg Tablet) 0.1 mg PO BID ASHLEY; Protocol Last Admin: 06/29/24 08:14 Dose: 0.1 mg Dextrose (Dextrose 50 % 25 Gm/50 Ml Syringe) 25 gm IVPUSH Q15M PRN; Protocol PRN Reason: per Hypoglycemia Standing Ord. Glucose (Glucose Gel 15 Gm Gel..Gram.) 15 gm PO Q15M PRN; Protocol PRN Reason: per Hypoglycemia Standing Ord. Glyburide (Glyburide 5 Mg Tablet) 5 mg PO BIDWM ASHLEY Haloperidol (Haloperidol 5 Mg Tablet) [address] [facility] Last Admin: 06/29/24 08:14 Dose: 10 mg Hydroxyzine HCl (Hydroxyzine Hcl 25 Mg Tablet) 25 mg PO Q6H PRN PRN Reason: Anxiety Last Admin: 06/26/24 14:43 Dose: 25 mg Ibuprofen (Ibuprofen 600 Mg Tablet) 600 mg PO Q6H PRN PRN Reason: Moderate to severe pain Last Admin: 06/28/24 21:49 Dose: 600 mg Insulin Glargine (Insulin Glargine,Hum.Rec.Anlog 100 Unit/Ml 10 Ml Vial) [address] [facility] Last Admin: 06/28/24 21:50 Dose: 5 unit Insulin Human Lispro (Insulin Lispro 100 Unit/Ml 3 Ml Vial) [address] [facility]; Protocol Last Admin: 06/29/24 08:16 Dose: 4 unit Magnesium Hydroxide (Milk Of Magnesia 30 Ml Oral.Susp) 30 ml PO DAILY PRN PRN Reason: Constipation Melatonin (Melatonin 3 Mg Tablet) [address] [facility] Last Admin: 06/28/24 21:49 Dose: 6 mg Nicotine Polacrilex (Nicotine Polacrilex 2 Mg Gum) 4 mg BUCCAL Q2H PRN PRN Reason: Nicotine Cravings Last Admin: 06/26/24 14:43 Dose: 4 mg Quetiapine Fumarate (Quetiapine Fumarate 100 Mg Tablet) [address] [facility] Last Admin: 06/28/24 21:50 Dose: 100 mg Trazodone HCl (Trazodone Hcl 50 Mg Tablet) 50 mg PO BEDTIME MRX1 PRN PRN Reason: Insomnia Allergies Allergies Allergy/AdvReac Type Severity Reaction Status Date / Time codeine AdvReac Unknown Unknown Verified 11/07/22 17:42 Assessment & Plan Assessment & Plan (1) Schizophrenia, chronic condition: Status: Acute Code(s): F20.9 - Schizophrenia, unspecified (2) PTSD (post-traumatic stress disorder): Status: Acute Code(s): F43.10 - Post-traumatic stress disorder, unspecified (3) Opioid use disorder: Status: Acute Code(s): F11.90 - Opioid use, unspecified, uncomplicated (4) Cocaine abuse: Status: Acute Code(s): F14.10 - Cocaine abuse, uncomplicated (5) Medical clearance for psychiatric admission: Status: Acute Code(s): Z00.8 - Encounter for other general examination Plan Patient is a 39-year-old male with history of schizophrenia, PTSD, opioid use disorder and cocaine use disorder who was brought into ED by EMS after being found unconscious near his snf for an unknown amount of time secondary to a suicide attempt via cocaine, alcohol and fentanyl. 2 difficult with which to engage. Reports still depressed. Refuse medications earlier however later on said he take them 06/28: no changes. Took scheduled meds 06/29: No changes. Encouraged to have repeat lab testing given rhabdomyolysis pre-admission and also need for nonsteroidal anti-inflammatories and foot pain. Plan: CV 15 minute safety checks Continue home medications Wound care consult for bilateral toes Encourage groups Discharge planning Reason for continued inpatient stay Substantial Risk for: rapid decompensation Time Spent With Patient Time: Total time managing care of this patient today ____ minutes.
[2024-06-29 12:31] LABS: Glucose, Whole Blood 300 mg/dL (60-115)
[2024-06-29] MEDS: Acetaminophen 325 MG TABLET 650 MG PO ×2 (14:23→20:21)
[2024-06-29] MEDS: glyBURIDE 5 MG TABLET PO (17:30)
[2024-06-29] MEDS: Ibuprofen 600 MG TABLET PO (17:30)
[2024-06-29 17:34] LABS: Glucose, Whole Blood 183 mg/dL (60-115)
[2024-06-29 19:57] LABS: Glucose, Whole Blood 234 mg/dL (60-115)
[2024-06-29 19:59] VITALS: BP 92/51; PULSE 79; RESP 15; TEMP 36.6; O2SAT 99
[2024-06-29] MEDS: QUEtiapine Fumarate 100 MG TABLET PO (20:13)
[2024-06-29] MEDS: Benztropine Mesylate 1 MG TABLET PO (20:14)
[2024-06-29] MEDS: Melatonin 3 MG TABLET 6 MG PO (20:14)
[2024-06-29] MEDS: Insulin Glargine,Hum.rec.anlog 100 UNIT/ML 10 ML VIAL SUBCUT (20:15)
[2024-06-30 08:00] VITALS: BP 123/64; PULSE 88; RESP 16; TEMP 36.6; O2SAT 100
[2024-06-30 08:15] LABS: Glucose, Whole Blood 273 mg/dL (60-115)
[2024-06-30] MEDS: HaloperidoL 5 MG TABLET 10 MG PO ×2 (08:28→21:35)
[2024-06-30] MEDS: glyBURIDE 5 MG TABLET PO ×2 (08:28→17:37)
[2024-06-30] MEDS: Acetaminophen 325 MG TABLET 650 MG PO ×2 (08:29→18:56)
[2024-06-30] MEDS: Insulin Lispro 100 UNIT/ML 3 ML VIAL SUBCUT ×4 (08:32→21:36)
[2024-06-30 08:33] VITALS: BP 123/64
[2024-06-30] MEDS: cloNIDine HCL 0.1 MG TABLET PO ×2 (08:33→21:35)
--- NOTE | 2024-06-30 10:08 | HO.PSYCHPN ---
Subjective Subjective Date of Service: 06/30/24 Reason For Visit: Schizophrenia Interim History: Met with patient; discussed with team Patient reports that he is feeling better. Says that AH remains resolved which he is pleased with. Says mood is better and denies any SI at all. Patient says he is feeling ready for discharge tomorrow's his 3 day notice is due. His plan is to go to [facility] and [place] after a couple days. Mental Status Exam Mental Status Exam Narrative: Pt is alert and oriented; behavior is cooperative, more engaged; calm, polite; patient is not in distress; dressed in hospital attire with unkempt hair but adequate hygiene; mood is described as good and affect congruent, brighter; eye contact appropriate; Speech is normal rate, volume and prosody and not pressured; some psychomotor retardation present; thought process is organized and goal directed; Thought content is on tx, discharge; otherwise pertinent to relevant topics and without any delusional content, paranoid ideations or grandiosity; denies any SI/HI. Says AH has resolved and There is no evidence of perceptual disturbance. Patients insight and judgment fair Diagnostics Vital Signs (24Hr): Vital Signs - 24 hr 06/29/24 19:59 06/30/24 08:00 06/30/24 08:33 Temperature 97.8 F 97.9 F Pulse Rate 79 88 Respiratory Rate 15 16 Blood Pressure 92/51 L 123/64 123/64 Pulse Oximetry 99 100 Labs 06/26/24 09:45 Labs: Laboratory Results - last 48 hr 06/28/24 06/28/24 06/28/24 12:39 17:26 21:34 POC Glucose 299 H 300 H 318 H 06/29/24 06/29/24 06/29/24 07:47 12:26 17:29 POC Glucose 243 H 300 H 183 H 06/29/24 06/30/24 19:53 08:11 POC Glucose 234 H 273 H Medications Medications Current Medications Acetaminophen (Acetaminophen 325 Mg Tablet) 650 mg PO Q6H PRN PRN Reason: Headache/Pain Mild Scale (1-3) Last Admin: 06/30/24 08:29 Dose: 650 mg Al Hydroxide/Mg Hydroxide (Magnesium Hydrox/Alum Hydrox 30 Ml Oral.Susp) 30 ml PO Q6H PRN PRN Reason: Heartburn/Nausea Benztropine Mesylate (Benztropine Mesylate 1 Mg Tablet) 1 mg PO BEDTIME [facility] INCLUDES [facility] Last Admin: 06/29/24 20:14 Dose: 1 mg Clonidine HCl (Clonidine Hcl 0.1 Mg Tablet) 0.1 mg PO BID [facility] INCLUDES [facility]; Protocol Last Admin: 06/30/24 08:33 Dose: 0.1 mg Dextrose (Dextrose 50 % 25 Gm/50 Ml Syringe) 25 gm IVPUSH Q15M PRN; Protocol PRN Reason: per Hypoglycemia Standing Ord. Glucose (Glucose Gel 15 Gm Gel..Gram.) 15 gm PO Q15M PRN; Protocol PRN Reason: per Hypoglycemia Standing Ord. Glyburide (Glyburide 5 Mg Tablet) 5 mg PO BIDWM COUNT INCLUDES THE [facility] Last Admin: 06/30/24 08:28 Dose: 5 mg Haloperidol (Haloperidol 5 Mg Tablet) 10 mg PO BID COUNT INCLUDES [facility] Last Admin: 06/30/24 08:28 Dose: 10 mg Hydroxyzine HCl (Hydroxyzine Hcl 25 Mg Tablet) 25 mg PO Q6H PRN PRN Reason: Anxiety Last Admin: 06/26/24 14:43 Dose: 25 mg Ibuprofen (Ibuprofen 600 Mg Tablet) 600 mg PO Q6H PRN PRN Reason: Moderate to severe pain Last Admin: 06/29/24 17:30 Dose: 600 mg Insulin Glargine (Insulin Glargine,Hum.Rec.Anlog 100 Unit/Ml 10 Ml Vial) 5 unit SUBCUT BEDTIME COUNT INCLUDES [facility] Last Admin: 06/29/24 20:15 Dose: 5 unit Insulin Human Lispro (Insulin Lispro 100 Unit/Ml 3 Ml Vial) 0 unit SUBCUT QIDACHS COUNT INCLUDES THE [facility]; Protocol Last Admin: 06/30/24 08:32 Dose: 6 unit Magnesium Hydroxide (Milk Of Magnesia 30 Ml Oral.Susp) 30 ml PO DAILY PRN PRN Reason: Constipation Melatonin (Melatonin 3 Mg Tablet) 6 mg PO BEDTIME COUNT INCLUDES [facility] Last Admin: 06/29/24 20:14 Dose: 6 mg Nicotine Polacrilex (Nicotine Polacrilex 2 Mg Gum) 4 mg BUCCAL Q2H PRN PRN Reason: Nicotine Cravings Last Admin: 06/26/24 14:43 Dose: 4 mg Quetiapine Fumarate (Quetiapine Fumarate 100 Mg Tablet) 100 mg PO BEDTIME COUNT INCLUDES [facility] Last Admin: 06/29/24 20:13 Dose: 100 mg Trazodone HCl (Trazodone Hcl 50 Mg Tablet) 50 mg PO BEDTIME MRX1 PRN PRN Reason: Insomnia Allergies Allergies Allergy/AdvReac Type Severity Reaction Status Date / Time codeine AdvReac Unknown Unknown Verified 11/07/22 17:42 Assessment & Plan Assessment & Plan (1) Schizophrenia, chronic condition: Status: Acute Code(s): F20.9 - Schizophrenia, unspecified (2) PTSD (post-traumatic stress disorder): Status: Acute Code(s): F43.10 - Post-traumatic stress disorder, unspecified (3) Opioid use disorder: Status: Acute Code(s): F11.90 - Opioid use, unspecified, uncomplicated (4) Cocaine abuse: Status: Acute Code(s): F14.10 - Cocaine abuse, uncomplicated (5) Medical clearance for psychiatric admission: Status: Acute Code(s): Z00.8 - Encounter for other general examination Plan Patient is a 39-year-old male with history of schizophrenia, PTSD, opioid use disorder and cocaine use disorder who was brought into ED by EMS after being found unconscious near his [facility] for an unknown amount of time secondary to a suicide attempt via cocaine, alcohol and fentanyl. 2 difficult with which to engage. Reports still depressed. Refuse medications earlier however later on said he take them 06/28: no changes. Took scheduled meds 06/29: No changes. Encouraged to have repeat lab testing given rhabdomyolysis pre-admission and also need for nonsteroidal anti-inflammatories and foot pain. 06/30 Patient reports that he is feeling better. Says that AH remains resolved which he is pleased with. Says mood is better and denies any SI at all. Patient says he is feeling ready for discharge tomorrow's his 3 day notice is due. His plan is to go to [facility] and [place] after a couple days -staff than own report he is at baseline. Patient is not in imminent risk for harm to self or others. His 3 day notice is coming due and his request for discharge honored Plan: 3 day notice 15 minute safety checks Continue home medications Wound care consult for bilateral toes Encourage groups Discharge planning Patient educated on: diagnosis and medication risk/benefits Informed Consent: understands Reason for continued inpatient stay Substantial Risk for: stable for discharge Time Spent With Patient Time: Total time managing care of this patient today ____ minutes.
[2024-06-30 12:16] LABS: Glucose, Whole Blood 320 mg/dL (60-115)
[2024-06-30] MEDS: Ibuprofen 600 MG TABLET PO (12:56)
[2024-06-30 17:06] LABS: Glucose, Whole Blood 345 mg/dL (60-115)
[2024-06-30 19:58] VITALS: BP 109/70; PULSE 82; RESP 16; TEMP 36.8; O2SAT 98
[2024-06-30 21:21] LABS: Glucose, Whole Blood 258 mg/dL (60-115)
[2024-06-30] MEDS: Benztropine Mesylate 1 MG TABLET PO (21:35)
[2024-06-30] MEDS: Melatonin 3 MG TABLET 6 MG PO (21:35)
[2024-06-30] MEDS: QUEtiapine Fumarate 100 MG TABLET PO (21:36)
[2024-06-30] MEDS: Insulin Glargine,Hum.rec.anlog 100 UNIT/ML 10 ML VIAL SUBCUT (21:36)
[2024-07-01 07:53] LABS: Glucose, Whole Blood 289 mg/dL (60-115)
[2024-07-01 08:00] VITALS: BP 106/61; PULSE 83; RESP 15; TEMP 37.4; O2SAT 99
[2024-07-01 08:29] VITALS: BP 106/61
[2024-07-01] MEDS: cloNIDine HCL 0.1 MG TABLET PO (08:29)
[2024-07-01] MEDS: HaloperidoL 5 MG TABLET 10 MG PO (08:29)
[2024-07-01] MEDS: glyBURIDE 5 MG TABLET PO (08:29)
[2024-07-01] MEDS: Insulin Lispro 100 UNIT/ML 3 ML VIAL SUBCUT ×2 (08:30→11:10)
--- NOTE | 2024-07-01 09:23 | P.DS_ITS ---
DS: Providers Provider Date of Service: 07/01/24 Date of admission: 06/25/24 22:09 Date of discharge: 07/01/24 Primary care physician: Unknown Physician Attending physician on admission: Lorraine Gould Consults: 06/25/24 23:02 Consult to Hospitalist Routine Comment: Consulting Provider[place] [facility] Reason For Exam: OSH admission 06/25/24 23:50 Addiction Medicine Routine Consulting Provider: Addiction Covering Reason for consultation: Polysubstance use 06/26/24 14:02 Consult to Wound Care Routine Reason for consultation: duarte bite on bilateral toes Has provider been notified: Yes 06/26/24 14:04 Consult to Wound Care Routine Reason for consultation: frostbite on toes Attending physician on discharge: Darian Hernandez DS: Diagnosis Discharge Diagnosis (1) Schizophrenia, chronic condition: Status: Acute (2) PTSD (post-traumatic stress disorder): Status: Acute (3) Opioid use disorder: Status: Acute (4) Cocaine abuse: Status: Acute (5) Medical clearance for psychiatric admission: Status: Resolved DS: Medications Discharge Medications Home Medications: Home Medications ?Medication ?Instructions ?Recorded ?Confirmed Inderal See Rx Instructions .Route .COMPLEX 06/26/24 06/26/24 Previous Rx's ?Medication ?Instructions ?Recorded acetaminophen 500 mg capsule 500 mg PO Q6H PRN pain 14 days #28 06/30/24 caps nicotine (polacrilex) 4 mg gum 4 mg buccal Q2H PRN nicotine 06/30/24 cravings 30 days #100 ea benztropine 1 mg tablet 1 mg PO BEDTIME 30 days #30 tabs 07/01/24 clonidine HCl 0.1 mg tablet 0.1 mg PO BID 30 days #60 tabs 07/01/24 glyburide 2.5 mg tablet 2.5 mg PO BIDWM 30 days #60 tabs 07/01/24 haloperidol 10 mg tablet 10 mg PO BID 30 days #60 tabs 07/01/24 hydroxyzine HCl 25 mg tablet 25 mg PO Q6H PRN Anxiety 30 days 07/01/24 #60 tabs melatonin 5 mg tablet 5 mg PO BEDTIME PRN sleep 30 days 07/01/24 #30 tabs metformin 1,000 mg tablet 1,000 mg PO BID 30 days #60 tabs 07/01/24 quetiapine 100 mg tablet 100 mg PO BEDTIME 30 days #30 tabs 07/01/24 Mental Status Exam Mental Status Exam Narrative: Pt is alert and oriented; behavior is cooperative, more engaged; calm, polite; patient is not in distress; dressed in hospital attire with unkempt hair but adequate hygiene; mood is described as good and affect congruent, brighter; eye contact appropriate; Speech is normal rate, volume and prosody and not pressured; some psychomotor retardation present; thought process is organized and goal directed; Thought content is on tx, discharge; otherwise pertinent to relevant topics and without any delusional content, paranoid ideations or grandiosity; denies any SI/HI. Says AH has resolved and There is no evidence of perceptual disturbance. Patients insight and judgment fair Data Data Completed and Pending Completed studies during hospitalization [Text1]: 06/26/24 06/26/24 06/26/24 09:45 17:25 20:38 WBC 6.0 RBC 4.43 L Hgb 11.0 L Hct 34.7 L MCV 78.3 L MCH 24.8 L MCHC 31.7 RDW 15.6 Plt Count 239 MPV 10.4 Immature Gran % (Auto) 0.2 Neut % (Auto) 65.2 Lymph % (Auto) 25.4 [place] % (Auto) 8.2 Eos % (Auto) 0.7 Baso % (Auto) 0.3 Lymph # (Auto) 1.5 [place] # (Auto) 0.5 Eos # (Auto) 0.0 Baso # (Auto) 0.0 Abs Immat Gran (auto) 0.01 Absolute Neuts (auto) 3.9 Absolute Nucleated RBC 0.000 Nucleated RBC % (auto) 0.0 POC Glucose 369 H* 288 H Estimat Average Glucose 177 Hemoglobin A1c % 7.8 H Total Bilirubin 0.4 Direct Bilirubin 0.1 AST 43 H ALT 77 H Alkaline Phosphatase 46 Total Protein 7.4 Albumin 3.7 Triglycerides 143 Cholesterol 138 LDL Cholesterol, Calc 80 HDL Cholesterol 30 L Vitamin B12 720 Folate 14.1 TSH 0.70 Free T4 1.14 06/27/24 06/27/24 06/27/24 08:10 12:16 17:06 WBC RBC Hgb Hct MCV MCH MCHC RDW Plt Count MPV Immature Gran % (Auto) Neut % (Auto) Lymph % (Auto) [place] % (Auto) Eos % (Auto) Baso % (Auto) Lymph # (Auto) [place] # (Auto) Eos # (Auto) Baso # (Auto) Abs Immat Gran (auto) Absolute Neuts (auto) Absolute Nucleated RBC Nucleated RBC % (auto) POC Glucose 245 H 195 H 395 H* Estimat Average Glucose Hemoglobin A1c % Total Bilirubin Direct Bilirubin AST ALT Alkaline Phosphatase Total Protein Albumin Triglycerides Cholesterol LDL Cholesterol, Calc HDL Cholesterol Vitamin B12 Folate TSH Free T4 06/27/24 06/28/24 06/28/24 19:51 08:24 12:39 WBC RBC Hgb Hct MCV MCH MCHC RDW Plt Count MPV Immature Gran % (Auto) Neut % (Auto) Lymph % (Auto) [place] % (Auto) Eos % (Auto) Baso % (Auto) Lymph # (Auto) [place] # (Auto) Eos # (Auto) Baso # (Auto) Abs Immat Gran (auto) Absolute Neuts (auto) Absolute Nucleated RBC Nucleated RBC % (auto) POC Glucose 324 H 298 H 299 H Estimat Average Glucose Hemoglobin A1c % Total Bilirubin Direct Bilirubin AST ALT Alkaline Phosphatase Total Protein Albumin Triglycerides Cholesterol LDL Cholesterol, Calc HDL Cholesterol Vitamin B12 Folate TSH Free T4 06/28/24 06/28/24 06/29/24 17:26 21:34 07:47 WBC RBC Hgb Hct MCV MCH MCHC RDW Plt Count MPV Immature Gran % (Auto) Neut % (Auto) Lymph % (Auto) [place] % (Auto) Eos % (Auto) Baso % (Auto) Lymph # (Auto) [place] # (Auto) Eos # (Auto) Baso # (Auto) Abs Immat Gran (auto) Absolute Neuts (auto) Absolute Nucleated RBC Nucleated RBC % (auto) POC Glucose 300 H 318 H 243 H Estimat Average Glucose Hemoglobin A1c % Total Bilirubin Direct Bilirubin AST ALT Alkaline Phosphatase Total Protein Albumin Triglycerides Cholesterol LDL Cholesterol, Calc HDL Cholesterol Vitamin B12 Folate TSH Free T4 06/29/24 06/29/24 06/29/24 12:26 17:29 19:53 WBC RBC Hgb Hct MCV MCH MCHC RDW Plt Count MPV Immature Gran % (Auto) Neut % (Auto) Lymph % (Auto) [place] % (Auto) Eos % (Auto) Baso % (Auto) Lymph # (Auto) [place] # (Auto) Eos # (Auto) Baso # (Auto) Abs Immat Gran (auto) Absolute Neuts (auto) Absolute Nucleated RBC Nucleated RBC % (auto) POC Glucose 300 H 183 H 234 H Estimat Average Glucose Hemoglobin A1c % Total Bilirubin Direct Bilirubin AST ALT Alkaline Phosphatase Total Protein Albumin Triglycerides Cholesterol LDL Cholesterol, Calc HDL Cholesterol Vitamin B12 Folate TSH Free T4 06/30/24 06/30/24 06/30/24 08:11 12:13 17:01 WBC RBC Hgb Hct MCV MCH MCHC RDW Plt Count MPV Immature Gran % (Auto) Neut % (Auto) Lymph % (Auto) [place] % (Auto) Eos % (Auto) Baso % (Auto) Lymph # (Auto) [place] # (Auto) Eos # (Auto) Baso # (Auto) Abs Immat Gran (auto) Absolute Neuts (auto) Absolute Nucleated RBC Nucleated RBC % (auto) POC Glucose 273 H 320 H 345 H Estimat Average Glucose Hemoglobin A1c % Total Bilirubin Direct Bilirubin AST ALT Alkaline Phosphatase Total Protein Albumin Triglycerides Cholesterol LDL Cholesterol, Calc HDL Cholesterol Vitamin B12 Folate TSH Free T4 06/30/24 07/01/24 21:17 07:49 WBC RBC Hgb Hct MCV MCH MCHC RDW Plt Count MPV Immature Gran % (Auto) Neut % (Auto) Lymph % (Auto) [place] % (Auto) Eos % (Auto) Baso % (Auto) Lymph # (Auto) [place] # (Auto) Eos # (Auto) Baso # (Auto) Abs Immat Gran (auto) Absolute Neuts (auto) Absolute Nucleated RBC Nucleated RBC % (auto) POC Glucose 258 H 289 H Estimat Average Glucose Hemoglobin A1c % Total Bilirubin Direct Bilirubin AST ALT Alkaline Phosphatase Total Protein Albumin Triglycerides Cholesterol LDL Cholesterol, Calc HDL Cholesterol Vitamin B12 Folate TSH Free T4 DS: Summary Hospital Course Hospital Course: Patient is a 39-year-old male with history of schizophrenia, PTSD, opioid use disorder and cocaine use disorder who was brought into ED by EMS after being found unconscious near his assisted for an unknown amount of time secondary to a suicide attempt via cocaine, alcohol and fentanyl. Hospital course: On admission patient depressed, initially refusing medications but later on decided to take them. Remained isolated for much of the time but eventually became more social, engaged and had returned to baseline. Patient denied SI and HI saying both of fully resolved. Reported that his mood was much better. As discharged approach, patient remained reporting feeling better and that AH remains resolved with which he is pleased; denies any SI at all. Patient says he is feeling ready for discharge tomorrow as his 3 day notice is due. Patient was planning to go to a assisted in [place] however instead he is going to stay at his sister's. [employer] offers him to stay longer on the unit for further stabilization however he declines and says he has important appointment he can not miss. 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 As mentioned patient is at baseline. His mood is better, SI and HI fully resolved. Although initially isolative and a little irritable, he is overall remained in good behavioral and impulse control and been appropriate with peers and staff. Patient's 3 day notice is due and he would like to discharge. While he remains vulnerable to relapse and decompensation, this is a chronic issue that will not resolve with longer stay on inpatient unit. Currently patient does not want substance abuse treatment including programs or MAT. He is not in imminent risk for harm to self or others and request for discharge honored. Time spent discussing smoking cessation with patient: 3 to 10 minutes Status at Discharge Functional status at discharge: independent ambulation Overall status at discharge: patient is back to baseline Time Spent with Patient Time attestation: Total time managing care of this patient today _40___ minutes. Time spent: Greater than 30 minutes Specific discharge activities: Met with patient; discussed with team; charting, prescription Discharge Plan Discharge Anticipated Discharge Date/Time: 07/01/24 11:30 Patient Disposition: Residential Discharge Diagnosis: Schizophrenia Referrals: Community Health Link: [facility] ([facility]) [Other] - 1 Week (You have been referred to [facility] for therapy and psychiatric medication management services. Agency will reach out to you in 24 hours to schedule appointment You should follow-up with them at [facility] clinic in [place] if you do not hear anything within 10 days.) [facility] [Other] - 1 Week (Residential information ) Physician,Unknown J [Primary Care Provider] - 1 Week Discharge Medications: New acetaminophen 500 mg capsule 500 mg PO Q6H PRN (Reason: pain) 14 Days Qty: 28 0RF hydroxyzine HCl 25 mg Tablet 25 mg PO Q6H PRN (Reason: Anxiety) 30 Days Qty: 60 0RF Continued quetiapine 100 mg Tablet 100 mg PO BEDTIME 30 Days Qty: 30 0RF haloperidol 10 mg tablet 10 mg PO BID 30 Days Qty: 60 0RF benztropine 1 mg Tablet 1 mg PO BEDTIME 30 Days Qty: 30 0RF Changed clonidine HCl 0.1 mg Tablet 0.1 mg PO BID 30 Days Qty: 60 0RF metformin 1,000 mg tablet 1,000 mg PO BID 30 Days Qty: 60 0RF melatonin 5 mg tablet 5 mg PO BEDTIME PRN (Reason: sleep) 30 Days Qty: 30 0RF Discontinued glyburide 2.5 mg tablet 2.5 mg PO BIDWM 30 Days Qty: 60 0RF Patient Comments: on hold- never started per [facility] Inderal tablet See Rx Instructions .ROUTE .COMPLEX Rx Instructions: 10 tab q 12 hours No Action insulin lispro [Admelog U-100 Insulin lispro] 100 unit/mL Solution See Protocol subcut QIDACHS Qty: 10 0RF Protocol: Insulin Resistant 1st 24 hours Less than or equal to 110 ---- Give (units): 0 111 to 150 Give (units): 2 151 to 200 Give (units): 5 201 to 250 Give (units): 8 251 to 300 Give (units): 12 301 to 350 Give (units): 16 Greater than 350 Give (units): 20 Call MD if Blood Glucose > : 350 glyburide 5 mg Tablet 5 mg PO BIDWM Qty: 60 0RF insulin glargine [Lantus U-100 Insulin] 100 unit/mL Solution 28 unit subcut BEDTIME Qty: 10 0RF sulfamethoxazole-trimethoprim [Bactrim DS] 800-160 mg tablet 1 tab PO Q12H Discharge Orders: Discharge Order (Routine); Ordered 07/01/24 Ordered By: Darian Hernandez Diet: Diabetic diet Activity on Discharge: As tolerated Stand Alone Forms: Patient Portal Discharge page, Community Support Print Language: Occitan Care Plan Goals: Maintain mood and safe behaviors Take medications as prescribed Continue to pursue sobriety Practice coping skills Continue with outpatient providers and reach out to them as needed Health Concerns: Mood stability and behaviors Sobriety Diabetes Plan of Treatment: Follow up with your PCP, psychiatric provider and other outpatient providers regarding above concerns Take medications as prescribed Assessment: Risk assessment at time of discharge:? Patient was interviewed prior to discharge and found to be fully oriented and without any SI or HI. Patient has improved insight and judgment and wants to continue treatment. Patient is not in imminent risk of harm to self or others and has a safety plan that includes presenting to the closest ER or calling 911 if feeling unsafe.? Patient has been observed closely by nursing and unit staff throughout admission; patient has not engaged in any behaviors that suggest dangerousness to self or others and has demonstrated appropriate behaviors and impulse control Discharge Date/Time: 07/01/24 11:15
[2024-07-01 10:40] LABS: Anion Gap 10 (12-20); Blood Urea Nitrogen 22 mg/dL (9-16); Calcium 9.3 mg/dL (8.4-10.2); Carbon Dioxide 27 mmol/L (22-29); Chloride 102 mmol/L (96-108); Estimated Glomerular Filt Rate > 60; Glucose Random 414 mg/dL (60-115); Potassium 4.4 mmol/L (3.3-5.1); Sodium 135 mmol/L (135-145)
[2024-07-01] MEDS: Naloxone HCl Nasal TAKE HOME 4 MG SPRAY 8 MG NOSTRILALT (10:42)
[2024-07-01] MEDS: metFORMIN HCl 500 MG TABLET PO (10:42)
--- NOTE | 2024-07-01 10:43 | PC.NURSE ---
Pt given Narcan 4mgx2 to take home for emergency use.
== END 2024-07-01 11:15 | disposition home or self-care (01) | DRG 750 ==
PROVIDERS: Psychiatry & Neurology Psychiatry; Admitting Provider Clinical Nurse Specialist Psychiatric/Mental Health, Adult; Visit Provider Clinical Nurse Specialist Psychiatric/Mental Health, Adult
DX: F20.9 Schizophrenia, unspecified (principal); F14.10 Cocaine abuse, uncomplicated; G47.33 Obstructive sleep apnea (adult) (pediatric); F43.10 Post-traumatic stress disorder, unspecified; Z59.02 Unsheltered homelessness; Z79.4 Long term (current) use of insulin; Z79.84 Long term (current) use of oral hypoglycemic drugs; Z79.899 Other long term (current) drug therapy
CPT/HCPCS: 36415; 80048; 80061; 80076; 82607; 82746; 82947; 83036; 84439; 84443; 85025; 90656

== ENCOUNTER → 2024-06-25 22:09 | Outpatient (BNV) | payer OTHER, SELFPAY | PROVIDERS: Admitting Provider Clinical Nurse Specialist Psychiatric/Mental Health, Adult; Visit Provider Registered Nurse | DX: F20.9 Schizophrenia, unspecified (principal); F14.10 Cocaine abuse, uncomplicated; F11.90 Opioid use, unspecified, uncomplicated; F43.11 Post-traumatic stress disorder, acute | CPT/HCPCS: 99233 ==

== ENCOUNTER → 2024-06-25 22:09 | Outpatient (BNV) | CPT/HCPCS: 99429 ==

== ENCOUNTER 2024-07-03 13:23 | Inpatient (IN) | payer OTHER, SELFPAY ==
--- NOTE | ~2024-07-03 | XR_ITS ---
EXAMINATION: XR FOOT, RIGHT CLINICAL INFORMATION: wound, diabetic -no further clinical information provided as to location. COMPARISON: None available. TECHNIQUE: AP, lateral, and oblique views of the right foot. FINDINGS: No fracture, dislocation, or suspicious bone lesion. Mild focal osteopenia of the distal phalanx of the hallux, lateral aspect. A few subcutaneous foci of gas are present in the hallux soft tissues. Bandaging overlies the medial hallux. Otherwise, no bony or soft tissue abnormalities. XR/XR foot RT min 3V IMPRESSION: 1. Findings of focal osteopenia, which could relate to early osteomyelitis distal phalanx of the hallux, lateral aspect. 2. Soft tissue ulceration suspected in the lateral plantar hallux, with small subcutaneous foci of gas present Electronically signed by: Quintin Sanchez MD 07/03/2024 04:56 PM [facility]
--- NOTE | ~2024-07-03 | XR_ITS ---
EXAMINATION: XR FOOT, LEFT CLINICAL INFORMATION: wound, diabetic -no further clinical information provided as to location. COMPARISON: None available. TECHNIQUE: AP, lateral, and oblique views of the left foot. FINDINGS: The bones and soft tissues are normal. No fracture. Alignment is anatomic. Joint spaces are maintained. XR/XR foot LT min 3V IMPRESSION: No acute bony abnormalities. No radiographic evidence of osteomyelitis. Electronically signed by: Quintin Sanchez MD 07/03/2024 04:53 PM EST
--- NOTE | ~2024-07-03 | MR_ITS ---
CLINICAL HISTORY: Evaluation for osteomyelitis MR right foot with and without gadolinium Comparison: CR/MS/SR - XR FOOT RT MIN 3V - 07/03/24 16:01 EST Findings: 1.1 x 1.7 x 0.6 cm abscess plantar to the sesamoids. There is subcutaneous edema throughout the foot with soft tissue defect/ulcer just plantar to the 1st distal phalanx. No evidence of osteomyelitis. No acute fracture or pathologic bone lesion. No joint effusion. Visualized flexor and extensor tendons and plantar fascia are intact. IMPRESSION: No evidence of osteomyelitis. 1.1 x 1.7 x 0.6 cm abscess plantar to the sesamoids. This document has been electronically signed by: Tunde Cruz MD on 07/03/2024 23:24:26
--- NOTE | 2024-07-03 13:35 | ED.PSYCH ---
HPI - Psych General Chief Complaint: Psychiatric Symptoms Stated Complaint: SI/HI,SUBSTANCE USE T-1,BILAT FEET FROSTBITE Time Seen by Provider: 07/03/24 13:34 Source: patient, EMS and RN notes reviewed Mode of arrival: EMS Limitations: no limitations History of Present Illness ED Provider: Debbie Rahman PA-C HPI Narrative: This is a 39-year-old male, with a past medical history significant for noninsulin dependent type 2 diabetes, cardiomyopathy, schizophrenia, and polysubstance use disorder who was brought in to the emergency department via EMS for suicidal ideation and BL foot pain. He reports that over the last several days he has had increased depression, and suicidal thoughts, stating that he wishes to choke himself. Patient's mother called 911. Patient reports that he has had increased pain in his feet for the last several days, states he was unable to walk on his feet secondary to the pain. Patient reports that he had frostbite on his feet which has now blistered, and is now leaking fluid. He has been trying to keep his feet as clean as possible. He states that he is unable to walk secondary to the pain in his bilateral feet. States that he is not currently on insulin, states he has only sertraline. He does admit that he uses multiple substances, states that he uses cocaine, as well as heroin. He states that he uses several bags a day, and typically uses an 8 ball of crack cocaine. Last use was yesterday. He also states that he drinks alcohol denies history of alcohol withdrawal seizures. Patient was admitted to psychiatry from an outside emergency department due to increasing depression and suicide attempt 4 days prior to psychiatric admission by overdosing on alcohol, crack cocaine, and fentanyl. Patient was apparently found down on the ground outside after an intentional overdose with an unknown downtime. [place] [id number] [place] time of admission. He was treated with IV fluid resuscitation. He was found to be hypothermic at 90.5? F with frostbite on bilateral toes. He was seen and evaluated by Wound Care and Plastic surgery who eventually signed off with no acute surgical intervention necessary 1-2 weeks ago. MD complaint: suicidal ideation and feels depressed Onset (ago): day(s) Duration: constant History of same: Yes Relieving factors: none Exacerbating factors: none Context: recent drug abuse Treatments prior to arrival: none If self harm: admits thoughts of self harm and has plan Related Data Previous Rx's ?Medication ?Instructions ?Recorded acetaminophen 500 mg capsule 500 mg PO Q6H PRN pain 14 days #28 06/30/24 caps nicotine (polacrilex) 4 mg gum 4 mg buccal Q2H PRN nicotine 06/30/24 cravings 30 days #100 ea benztropine 1 mg tablet 1 mg PO BEDTIME 30 days #30 tabs 07/01/24 clonidine HCl 0.1 mg tablet 0.1 mg PO BID 30 days #60 tabs 07/01/24 glyburide 2.5 mg tablet 2.5 mg PO BIDWM 30 days #60 tabs 07/01/24 haloperidol 10 mg tablet 10 mg PO BID 30 days #60 tabs 07/01/24 hydroxyzine HCl 25 mg tablet 25 mg PO Q6H PRN Anxiety 30 days 07/01/24 #60 tabs melatonin 5 mg tablet 5 mg PO BEDTIME PRN sleep 30 days 07/01/24 #30 tabs metformin 1,000 mg tablet 1,000 mg PO BID 30 days #60 tabs 07/01/24 quetiapine 100 mg tablet 100 mg PO BEDTIME 30 days #30 tabs 07/01/24 Allergies Allergy/AdvReac Type Severity Reaction Status Date / Time codeine AdvReac Unknown Unknown Verified 07/03/24 13:44 Review of Systems Review of Systems: Yes all other systems are reviewed and are negative Constitutional: Constitutional: Reports as per [facility] Past Medical History Attestation statement: The following information was validated with the patient. Medical History Medical clearance for psychiatric admission Routine history and physical examination of adult Cardiomyopathy Cocaine abuse Cannabis abuse Diabetes Schizophrenia, chronic condition Surgical History No pertinent past surgical history Family History Family History Other No family history of coronary artery disease Social History Social History Household Members: None Housing: Homeless Do you presently have visiting nurse or other home services: No Alcohol intake: current Alcohol intake frequency: a few times a week Comment: pt has a patient observer at all times Patient Tobacco Use Status: Current everyday Tobacco user Tobacco use type: Cigarette Cigarette Packs Per Day: 1 Cigarettes Per Day: 20.0 Smoked in Last 30 Days: Yes e-Cigarette/Vaping Use: Never Used Use of substances other than those prescribed or required for medical reasons: Yes Substance Use Type: Crack/Cocaine Last Used Substance: Just Prior to Admission Advance Directives: No Advance Directives Information Provided: No Do you have a plan to hurt others: No Plan service: No Sexual orientation: Straight/Heterosexual Physical Exam Vital Signs: Vital Signs: Last Vital Signs Temp 99.9 F 07/03/24 15:14 Pulse 98 07/03/24 17:31 Resp 18 07/03/24 17:31 BP 108/51 L 07/03/24 17:31 Pulse Ox 98 07/03/24 17:31 O2 Del Method Room Air 07/03/24 17:31 BMI result Body Mass Index 25.1 Const: General: cooperative, comfortable and no acute distress Orientation/consciousness: patient oriented x3 Limitations: no limitations HEENT: Head: Yes normal to inspection, Yes normocephalic and Yes atraumatic Ears: hearing grossly normal bilaterally General nose exam: Normal external nose present Face and sinus: Yes normal facial exam Mouth: Normal oral and palatal mucosa present, oropharynx normal and moist mucous membranes Throat: Yes posterior oropharynx normal Eyes: General: appearance normal, both eyes and all related structures Eyelids: Yes eyelids normal Conjunctivae: conjunctivae normal Sclerae: sclerae normal Pupils: Equal, round and reactive pupils present EOM: EOMs intact bilaterally Neck: Neck: Yes normal visual inspection, Yes full ROM and Yes no lymphadenopathy Lymphatic: no lymphadenopathy noted Chest: Chest palpation & inspection: normal inspection of the chest Resp: Effort & Inspection: normal respiratory effort and able to speak in complete sentences Auscultation: clear to auscultation bilaterally, no crackles, no rales, no rhonchi and no wheezes Cardio: Rate: regular rate Rhythm: regular rhythm Heart sounds: S1 normal heart sound present and S2 normal heart sound present GI: Inspection: Yes normal to inspection Skin: General skin exam: no rashes or lesions noted Trauma: no lacerations or abrasions Wounds: no wounds Neuro: General: patient oriented x3 and moves all extremities Cranial nerves: Yes Equal, round and reactive pupils present Extrem: Other: Right foot, with erythema, warmth, and drainage noted across all digits, skin cracking with breakdown noted. Exquisitely tender, strong DP pulse. Left foot, with warmth, erythema and edema noted, capillary refill less than 2 seconds. Sensation intact. Exquisitely tender throughout forefoot. Strong DP pulse General: Yes normal to inspection Right upper extremity: normal to inspection Left upper extremity: normal to inspection Course Reevaluation(s) Reevaluation #1: Patient with leukocytosis at 13.5, microcytic anemia with an H&H of 11.3/34.5. Point of care initially for 49, this improved to 365 upon labs, repeat is now 309. He has been given IV fluids, with overall improvement of hyperglycemia. U tox positive for cocaine, negative COVID, flu, RSV. Awaiting foot x-rays. He is afebrile, nontoxic-appearing. Given for physical exam with lower extremity cellulitis, with skin breakdown noted to the right foot, with history of diabetes, I believe that patient will be better served through the hospital service to manage poorly-controlled diabetes as well as infection with IV antibiotics. Lactic acid within normal limits. Given that patient was not medically cleared, the crisis team was unable to see patient until this occurs. Given patient is likely going to be admitted to the hospital for cellulitis and early osteomyelitis, patient will likely need crisis eval upon hospital admission. Time: 16:43 Medications Administered Discontinued Medications Generic Name Dose Route Start Last Admin Trade Name Freq PRN Reason Stop Dose Admin Sodium Chloride 2,449.41 mls @ 2,449.41 mls/hr 07/03/24 13:54 07/03/24 17:00 Ns 30 ml/kg infuse over 1 hr (2449.41 ml) 07/03/24 14:53 Infused IV Infusion .Q1H STA Acetaminophen 1,000 mg in 100 mls @ 400 mls/hr 07/03/24 13:54 07/03/24 16:25 Ofirmev IV 07/03/24 14:08 Infused ONCE ONE Infusion Vancomycin HCl 2,000 mg in 500 mls @ 250 mls/hr 07/03/24 13:54 07/03/24 16:35 Vancomycin/Ns IV 07/03/24 15:53 250 mls/hr ONCE ONE Administration Piperacillin Sod/Tazobactam 50 mls @ 100 mls/hr 07/03/24 13:54 07/03/24 16:25 Sod 3.375 gm/ Sodium Chloride IV 07/03/24 14:23 Infused ONCE ONE Infusion Medical Decision Making Medical Decision Making [facility] Narrative: This is a 39-year-old male, with a past medical history significant for noninsulin dependent type 2 diabetes, cardiomyopathy, schizophrenia, and polysubstance use disorder who was brought in to the emergency department via EMS for suicidal ideation. On arrival, patient alert and oriented x4. He is speaking in full sentences under no acute distress. He is afebrile, nontoxic-appearing. Blood pressure slightly elevated at 1 . Bilateral feet, appears to be erythematous, warm, with blistering. He is afebrile, not tachycardic however will treat for cellulitis due to increased pain and swelling to his lower feet. Will also administer IV fluids and IV antibiotics due to concern for cellulitis. At this time, patient was not meeting sirs criteria however still covering with antibiotics, fluids, Tylenol. He was initially placed in the psychiatric pond however given elevated point of care at 449, with associated cellulitis, he would be best served here on the main emergency department side. Patient will be transferred over to the main emergency department for further management. Labs, x-ray, as well as further evaluation and management pending at this time. Differential Diagnosis Differential Diagnoses: The differential diagnosis associated with the presentation includes Suicidal ideation, polysubstance abuse, HI, cellulitis, osteomyelitis Admission/Observation Consideration of admission/observation: Escalation of care including admission/observation considered Lab Data [facility] Lab Attestation statement: I reviewed the patient's lab results. Leukocytosis at 13.5, with left shift, microcytic anemia with an H&H of 11.3/34.5, creatinine 1.29, appears to be at his baseline. Hyperglycemia noted at 414, improved to 309. He is not in DKA. 07/03/24 14:58 07/03/24 14:58 Labs: Lab Results 07/03/24 07/03/24 07/03/24 Range/Units 13:38 14:55 14:58 WBC 13.5 H (4.8-10.8) X10*3/uL RBC 4.47 L (4.60-5.80) X10*6/uL Hgb 11.3 L (14.0-18.0) g/dl Hct 34.5 L (42.0-52.0) % MCV 77.2 L (80.0-98.0) fL MCH 25.3 L (27.0-33.0) pg MCHC 32.8 (31.0-36.0) g/dl RDW 16.0 (11.0-16.0) % Plt Count 400 D (160-400) X10*3/uL MPV 9.8 (9.4-12.4) fL Immature Gran % (Auto) 0.4 (0.0-0.4) % Neut % (Auto) 78.1 H (45-73) % Lymph % (Auto) 15.8 L (20-40) % [place] % (Auto) 5.5 (2-11) % Eos % (Auto) 0.1 (0-4) % Baso % (Auto) 0.1 (0-2) % Lymph # (Auto) 2.1 (1.2-4.9) X10*3/uL [place] # (Auto) 0.7 (0.1-1.2) X10*3/uL Eos # (Auto) 0.0 (0.0-0.4) X10*3/uL Baso # (Auto) 0.0 (0.0-0.2) X10*3/uL Abs Immat Gran (auto) 0.06 H (0.00-0.03) X10*3/uL Absolute Neuts (auto) 10.5 H (2.0-8.3) x10*3/uL Absolute Nucleated RBC 0.000 (0.0-0.012) X10*3/uL Nucleated RBC % (auto) 0.0 (0.0-0.2) /100WBC VBG pH (7.32-7.43) VBG pCO2 mmHg VBG pO2 mmHg VBG HCO3 (22-26) mmol/L VBG O2 Saturation % VBG Base Excess mmol/L Sodium 137 (135-145) mmol/L Potassium 4.4 (3.3-5.1) mmol/L Chloride 100 (96-108) mmol/L Carbon Dioxide 27 (22-29) mmol/L Anion Gap 14 (12-20) BUN 16 (9-16) mg/dL Creatinine 1.29 (0.5-1.4) mg/dL Estim Creat Clear Calc 81.8 Estimated GFR > 60 POC Glucose 449 H* (60-115) mg/dL Random Glucose 365 H* (60-115) mg/dL Lactic Acid 1.3 (0.5-2.0) mmol/L Calcium 9.7 (8.4-10.2) mg/dL Magnesium 2.0 (1.6-2.6) mg/dL Total Bilirubin 0.8 (0.0-1.0) mg/dL Direct Bilirubin 0.3 (0.0-0.5) mg/dL AST 32 (5-37) U/L ALT 50 H (0-40) U/L Alkaline Phosphatase 58 (39-117) U/L C-Reactive Protein 20.35 H (< or = 0.50) mg/dL Total Protein 8.7 H (6.5-8.0) g/dL Albumin 4.2 (3.5-5.0) g/dL Beta-Hydroxybutyrate 0.14 (0.02-0.27) mmol/L Urine Color Urine Appearance Urine pH (5.0-9.0) Ur Specific [place] (1.005-1.025) Urine Protein (Neg-Trace) mg/dL Urine Glucose (UA) (Negative) mg/dL Urine Ketones (Negative) mg/dL Urine Blood (Negative) Urine Nitrite (Negative) Ur Leukocyte Esterase (Negative) Urine RBC (0-2) /HPF Urine WBC (0-5) /HPF Ur Squamous Epith Cells (0-2) /HPF Urine Bacteria (None Seen) Hyaline Casts (0-2) /LPF Urine Opiates Screen (Not Detect) Ur Buprenorphine Scrn (Not Detect) ng/mL Ur Oxycodone Screen (Not Detect) ng/mL Urine Methadone Screen (Not Detect) ng/mL Urine Fentanyl Screen (Not Detect) Ur Barbiturates Screen (Not Detect) Ur Phencyclidine Scrn (Not Detect) Ur Amphetamines Screen (Not Detect) U Benzodiazepines Scrn (Not Detect) Urine Cocaine Screen (Not Detect) U Marijuana (THC) Screen (Not Detect) Ethyl Alcohol < 10 mg/dL Influenza Type A (PCR) NEGATIVE (Negative) Influenza Type B (PCR) NEGATIVE (Negative) RSV RNA Qual (PCR) NEGATIVE (Negative) SARS-CoV-2 RNA (RT-PCR) NEGATIVE (Negative) 07/03/24 07/03/24 07/03/24 Range/Units 15:05 15:44 15:48 WBC (4.8-10.8) X10*3/uL RBC (4.60-5.80) X10*6/uL Hgb (14.0-18.0) g/dl Hct (42.0-52.0) % MCV (80.0-98.0) fL MCH (27.0-33.0) pg MCHC (31.0-36.0) g/dl RDW (11.0-16.0) % Plt Count (160-400) X10*3/uL MPV (9.4-12.4) fL Immature Gran % (Auto) (0.0-0.4) % Neut % (Auto) (45-73) % Lymph % (Auto) (20-40) % [place] % (Auto) (2-11) % Eos % (Auto) (0-4) % Baso % (Auto) (0-2) % Lymph # (Auto) (1.2-4.9) X10*3/uL [place] # (Auto) (0.1-1.2) X10*3/uL Eos # (Auto) (0.0-0.4) X10*3/uL Baso # (Auto) (0.0-0.2) X10*3/uL Abs Immat Gran (auto) (0.00-0.03) X10*3/uL Absolute Neuts (auto) (2.0-8.3) x10*3/uL Absolute Nucleated RBC (0.0-0.012) X10*3/uL Nucleated RBC % (auto) (0.0-0.2) /100WBC VBG pH 7.43 (7.32-7.43) VBG pCO2 49 mmHg VBG pO2 25 mmHg VBG HCO3 33 H (22-26) mmol/L VBG O2 Saturation 30.0 % VBG Base Excess 7.6 mmol/L Sodium (135-145) mmol/L Potassium (3.3-5.1) mmol/L Chloride (96-108) mmol/L Carbon Dioxide (22-29) mmol/L Anion Gap (12-20) BUN (9-16) mg/dL Creatinine (0.5-1.4) mg/dL Estim Creat Clear Calc Estimated GFR POC Glucose 309 H (60-115) mg/dL Random Glucose (60-115) mg/dL Lactic Acid (0.5-2.0) mmol/L Calcium (8.4-10.2) mg/dL Magnesium (1.6-2.6) mg/dL Total Bilirubin (0.0-1.0) mg/dL Direct Bilirubin (0.0-0.5) mg/dL AST (5-37) U/L ALT (0-40) U/L Alkaline Phosphatase (39-117) U/L C-Reactive Protein (< or = 0.50) mg/dL Total Protein (6.5-8.0) g/dL Albumin (3.5-5.0) g/dL Beta-Hydroxybutyrate (0.02-0.27) mmol/L Urine Color Yellow Urine Appearance Clear Urine pH 6.5 (5.0-9.0) Ur Specific [place] >= 1.030 H (1.005-1.025) Urine Protein Negative (Neg-Trace) mg/dL Urine Glucose (UA) >=1000 H (Negative) mg/dL Urine Ketones Negative (Negative) mg/dL Urine Blood Negative (Negative) Urine Nitrite Negative (Negative) Ur Leukocyte Esterase Negative (Negative) Urine RBC 0-2 (0-2) /HPF Urine WBC 0-5 (0-5) /HPF Ur Squamous Epith Cells 0-2 (0-2) /HPF Urine Bacteria None Seen (None Seen) Hyaline Casts 0-2 (0-2) /LPF Urine Opiates Screen Not Detected (Not Detect) Ur Buprenorphine Scrn Not Detected (Not Detect) ng/mL Ur Oxycodone Screen Not Detected (Not Detect) ng/mL Urine Methadone Screen Not Detected (Not Detect) ng/mL Urine Fentanyl Screen Not Detected (Not Detect) Ur Barbiturates Screen Not Detected (Not Detect) Ur Phencyclidine Scrn Not Detected (Not Detect) Ur Amphetamines Screen Not Detected (Not Detect) U Benzodiazepines Scrn Not Detected (Not Detect) Urine Cocaine Screen POSITIVE H (Not Detect) U Marijuana (THC) Screen Not Detected (Not Detect) Ethyl Alcohol mg/dL Influenza Type A (PCR) (Negative) Influenza Type B (PCR) (Negative) RSV RNA Qual (PCR) (Negative) SARS-CoV-2 RNA (RT-PCR) (Negative) 07/03/24 Range/Units 17:00 WBC (4.8-10.8) X10*3/uL RBC (4.60-5.80) X10*6/uL Hgb (14.0-18.0) g/dl Hct (42.0-52.0) % MCV (80.0-98.0) fL MCH (27.0-33.0) pg MCHC (31.0-36.0) g/dl RDW (11.0-16.0) % Plt Count (160-400) X10*3/uL MPV (9.4-12.4) fL Immature Gran % (Auto) (0.0-0.4) % Neut % (Auto) (45-73) % Lymph % (Auto) (20-40) % [place] % (Auto) (2-11) % Eos % (Auto) (0-4) % Baso % (Auto) (0-2) % Lymph # (Auto) (1.2-4.9) X10*3/uL [place] # (Auto) (0.1-1.2) X10*3/uL Eos # (Auto) (0.0-0.4) X10*3/uL Baso # (Auto) (0.0-0.2) X10*3/uL Abs Immat Gran (auto) (0.00-0.03) X10*3/uL Absolute Neuts (auto) (2.0-8.3) x10*3/uL Absolute Nucleated RBC (0.0-0.012) X10*3/uL Nucleated RBC % (auto) (0.0-0.2) /100WBC VBG pH (7.32-7.43) VBG pCO2 mmHg VBG pO2 mmHg VBG HCO3 (22-26) mmol/L VBG O2 Saturation % VBG Base Excess mmol/L Sodium (135-145) mmol/L Potassium (3.3-5.1) mmol/L Chloride (96-108) mmol/L Carbon Dioxide (22-29) mmol/L Anion Gap (12-20) BUN (9-16) mg/dL Creatinine (0.5-1.4) mg/dL Estim Creat Clear Calc Estimated GFR POC Glucose 335 H (60-115) mg/dL Random Glucose (60-115) mg/dL Lactic Acid (0.5-2.0) mmol/L Calcium (8.4-10.2) mg/dL Magnesium (1.6-2.6) mg/dL Total Bilirubin (0.0-1.0) mg/dL Direct Bilirubin (0.0-0.5) mg/dL AST (5-37) U/L ALT (0-40) U/L Alkaline Phosphatase (39-117) U/L C-Reactive Protein (< or = 0.50) mg/dL Total Protein (6.5-8.0) g/dL Albumin (3.5-5.0) g/dL Beta-Hydroxybutyrate (0.02-0.27) mmol/L Urine Color Urine Appearance Urine pH (5.0-9.0) Ur Specific [place] (1.005-1.025) Urine Protein (Neg-Trace) mg/dL Urine Glucose (UA) (Negative) mg/dL Urine Ketones (Negative) mg/dL Urine Blood (Negative) Urine Nitrite (Negative) Ur Leukocyte Esterase (Negative) Urine RBC (0-2) /HPF Urine WBC (0-5) /HPF Ur Squamous Epith Cells (0-2) /HPF Urine Bacteria (None Seen) Hyaline Casts (0-2) /LPF Urine Opiates Screen (Not Detect) Ur Buprenorphine Scrn (Not Detect) ng/mL Ur Oxycodone Screen (Not Detect) ng/mL Urine Methadone Screen (Not Detect) ng/mL Urine Fentanyl Screen (Not Detect) Ur Barbiturates Screen (Not Detect) Ur Phencyclidine Scrn (Not Detect) Ur Amphetamines Screen (Not Detect) U Benzodiazepines Scrn (Not Detect) Urine Cocaine Screen (Not Detect) U Marijuana (THC) Screen (Not Detect) Ethyl Alcohol mg/dL Influenza Type A (PCR) (Negative) Influenza Type B (PCR) (Negative) RSV RNA Qual (PCR) (Negative) SARS-CoV-2 RNA (RT-PCR) (Negative) Radiology Impression Discussion of test interpretation with radiology: I have reviewed the radiologist's reading. Radiologist Impression: EXAMINATION: XR FOOT, RIGHT CLINICAL INFORMATION: wound, diabetic -no further clinical information provided as to location. COMPARISON: None available. TECHNIQUE: AP, lateral, and oblique views of the right foot. FINDINGS: No fracture, dislocation, or suspicious bone lesion. Mild focal osteopenia of the distal phalanx of the hallux, lateral aspect. A few subcutaneous foci of gas are present in the hallux soft tissues. Bandaging overlies the medial hallux. Otherwise, no bony or soft tissue abnormalities. XR/XR foot RT min 3V IMPRESSION: 1. Findings of focal osteopenia, which could relate to early osteomyelitis distal phalanx of the hallux, lateral aspect. 2. Soft tissue ulceration suspected in the lateral plantar hallux, with small subcutaneous foci of gas present Electronically signed by: Quintin Sanchez MD 07/03/2024 04:56 PM EST RP Dictated By: Quintin Sanchez MD EXAMINATION: XR FOOT, LEFT CLINICAL INFORMATION: wound, diabetic -no further clinical information provided as to location. COMPARISON: None available. TECHNIQUE: AP, lateral, and oblique views of the left foot. FINDINGS: The bones and soft tissues are normal. No fracture. Alignment is anatomic. Joint spaces are maintained. XR/XR foot LT min 3V IMPRESSION: No acute bony abnormalities. No radiographic evidence of osteomyelitis. Electronically signed by: Quintin Sanchez MD 07/03/2024 04:53 PM EST RP Dictated By: Quintin Sanchez MD Prescription Management I considered prescription management with: Antibiotic Chronic Conditions Patient?s care impacted by: Diabetes and Other (Substance abuse) Discharge Plan Discharge Clinical Impression: Cellulitis, Suicide ideation, Osteomyelitis Patient Disposition: Still a Patient Prescriptions: No Action nicotine (polacrilex) 4 mg gum 4 mg buccal Q2H PRN (Reason: nicotine cravings) 30 Days Qty: 100 0RF acetaminophen 500 mg capsule 500 mg PO Q6H PRN (Reason: pain) 14 Days Qty: 28 0RF hydroxyzine HCl 25 mg Tablet 25 mg PO Q6H PRN (Reason: Anxiety) 30 Days Qty: 60 0RF clonidine HCl 0.1 mg Tablet 0.1 mg PO BID 30 Days Qty: 60 0RF glyburide 2.5 mg tablet 2.5 mg PO BIDWM 30 Days Qty: 60 0RF quetiapine 100 mg Tablet 100 mg PO BEDTIME 30 Days Qty: 30 0RF haloperidol 10 mg tablet 10 mg PO BID 30 Days Qty: 60 0RF benztropine 1 mg Tablet 1 mg PO BEDTIME 30 Days Qty: 30 0RF metformin 1,000 mg tablet 1,000 mg PO BID 30 Days Qty: 60 0RF melatonin 5 mg tablet 5 mg PO BEDTIME PRN (Reason: sleep) 30 Days Qty: 30 0RF Interventions: [place]-Suicide Risk Severity Scale Last Done: 07/03/24 13:47 Print Language: Cymro
[2024-07-03 13:37] VITALS: BP 120/70; PULSE 90; O2SAT 98
[2024-07-03 13:38] VITALS: BP 119/97; PULSE 96; RESP 18; TEMP 37.4; O2SAT 100; BMI 25.1
[2024-07-03 13:41] LABS: Glucose, Whole Blood 449 mg/dL (60-115)
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
--- NOTE | 2024-07-03 14:10 | MHC.EDTECH ---
pt changed into hospital attire, belongings searched through and charted- placed in charity port shelf 2, pt given diet duncan mora and awaiting transfer to main ED
--- NOTE | 2024-07-03 14:34 | PC.NURSE ---
Unable to obtain labs, pt difficult stick.
[2024-07-03] MEDS: 0.9 % Sodium Chloride 2,449.41 ML 2449.41 ML IV (15:02)
--- NOTE | 2024-07-03 15:02 | PC.NURSE ---
Labs/meds delayed due to poor venous access. #20 established in DES via [place] guidance.
[2024-07-03] MEDS: Piperacillin Sodium/Tazobactam 3.375 GM in 0.9 % Sodium Chloride 50 ML IV ×2 (15:05→22:31)
--- NOTE | 2024-07-03 15:05 | PC.NURSE ---
pt difficult stick - UG line placed by Jennifer BAIRD. Abx started after BC and line
--- OUTSIDE RECORDS SUMMARY | 2024-07-03 15:05 | XMS_ITS | Encounter Summary ---
Author Organization [facility] Address [address] [id number] Care Team Providers Care Financial Internship Name Role Phone LaurenceariDayne urbina Primary Care Provider [phone] Reason for Visit * Reason Comments Found Down * Auth/Cert (Routine) Specialty Diagnoses / Procedures Referred By Contac t Referred To Contact Diagnoses Rhabdomyolysis Referral ID Status Reason Start Date Expiration Date Visits Re quested Visits Authorized [id number] [phone] Encounter Details Date Type Department Care Team (Latest Contact Info) Description 06/22/2024 7:39 AM EST - 06/25/2024 9:01 PM [facility] Hospital Encounter [facility] Emergency Department [address] [place] [address] Sofía Hardy MD [address] [place] [phone] Mack Cortez MD [address] [place] [phone] Alex Hines MD [address] [place] [phone] Quintin Ng MD [address] [place] [phone] Zuleyma Maldonado MD [address] [place] [id number] Rhabdomyolysis (Primary Dx); Opioid use disorder, severe, dependence (HCC) [F11.20]; Cocaine use disorder (HCC) [F14.10] Discharge Disposition: Psychiatric Hospital (INPT Psych facility/unit) (65) Social History Tobacco Use Types Packs/Day Years Used Date Smoking Tobacco: Never Assessed Sex and Gender Information Value Date Recorded Sex Assigned at Not on file Legal Sex Male 7:34 AM EST Gender Identity Not on file Sexual Orientation Not on file documented as of this encounter Last Filed Vital Signs Vital Sign Reading Time Taken Comments Blood Pressure 133/78 06/25/2024 4:25 PM EST Pulse 72 06/25/2024 4:25 PM EST Temperature 37 ??C (98.6 ??F) 06/25/2024 2:13 PM EST Respiratory Rate 16 06/25/2024 4:25 PM EST Oxygen Saturation 97% 06/25/2024 4:25 PM EST Inhaled Oxygen Concentration - - Weight 81.6 kg (180 lb) 06/25/2024 8:59 AM EST Height - - Body Mass Index - - documented in this encounter Functional Status * Drug Abuse Screening Test (DAST-10) Question Answer Date of Assessment Author DAST-10 Score 8 06/24/2024 5:00 PM EST Marisol Huynh [facility] documented as of this encounter Discharge Summaries * Zuleyma Maldonado MD - 06/25/2024 2:31 PM EST Images from the original note were not included. DISCHARGE SUMMARY [facility] DISCHARGE INFORMATION: Date and Time of Admission: 06/22/2024 7:03 PM Date of Discharge: 06/25/24 DISCHARGE DIAGNOSIS: Problem List Active Problems Cocaine use disorder (HCC) Frostbite of both feet Intentional drug overdose (HCC) Nondependent alcohol abuse Opioid use disorder AVRIL (obstructive sleep apnea) Suicidal ideation T2DM (type 2 diabetes mellitus) ([facility]) Resolved Problems * (Principal) RESOLVED: Rhabdomyolysis RESOLVED: Fever ATTENDING PHYSICIAN ON DISCHARGE: Attending Provider: Zuleyma Maldonado MD [phone] FOLLOW-UPS AND SCHEDULED APPOINTMENTS: Future Appointments Date Time Provider Department Center 07/01/2024 4:00 PM AARON Velasquez [facility] CONTACT INFORMATION FOR FOLLOW-UP Dayne Dubose Relationship: PCP - General [address] [place] [address] Next Steps: Call in 2 week(s) PENDING LABS: . None DISCHARGE MEDICATIONS: Discharge Medication list: Discharge Medications New Medications Sig Disp Refill acetaminophen 325 mg tablet Commonly known as: TYLENOL Take 2 tablets (650 mg total) by mouth every 6 hours as needed for headache, pain or fever. 30 tablet 0 benztropine 0.5 mg tablet Commonly known as: COGENTIN Take 1 tablet (0.5 mg total) by mouth 2 times a day. 30 tablet 0 folic acid 1 mg tablet Commonly known as: FOLVITE Start taking on: June 26, 2024 Take 1 tablet (1 mg total) by mouth once a day for 1 dose. 1 tablet 0 ibuprofen 600 mg tablet Commonly known as: MOTRIN Take 1 tablet (600 mg total) by mouth every 6 hours for 7 doses. 7 tablet 0 thiamine HCl 100 mg tablet Commonly known as: VITAMIN B1 Take 1 tablet (100 mg total) by mouth once a day. 30 tablet 0 Medications To Continue Sig Disp Refill haloperidoL 10 mg tablet Commonly known as: HALDOL Take 10 mg by mouth 2 times a day. 0 metFORMIN 1,000 mg tablet Commonly known as: GLUCOPHAGE Take 1,000 mg by mouth 2 times a day with meals. 0 Stopped Medications QUEtiapine 25 mg tablet Commonly known as: SEROquel ALLERGIES: Codeine IMMUNIZATION HISTORY: Most Recent Immunizations Administered Date(s) Administered Covid-19 Monovalent Vaccine, Moderna, mRNA, PF 06/21/2021 INFLUENZA, SPLIT VIRUS, TRIVALENT, PF 05/03/2017 Influenza, Trivalent, MDV, Injectable 03/17/2011 PPD Test 05/26/2011 Pneumococcal Polysaccharide Vaccine, 23 Valent 05/24/2011 Tetanus Toxoid, Reduced Diphtheria Toxoid, and Acellular Pertussis Vaccine, Adsorbed 08/06/2022 Tetanus and Diphtheria Toxoids, Adsorbed, Preservative Free, for Adult Use (5 Lf of Tetanus Toxoid and 2 Lf of Diphtheria Toxoid) 06/22/2024 PRESENTATION INFORMATION: HISTORY OF PRESENT ILLNESS: PAST MEDICAL HISTORY: No past medical history on file. PAST SURGICAL HISTORY: No past surgical history on file. PAST FAMILY HISTORY: No family history on file. PAST SOCIAL HISTORY: Social History Socioeconomic History Marital status: Single Spouse name: Not on file Number of children: Not on file Years of education: Not on file Highest education level: Not on file Occupational History Not on file Tobacco Use Smoking status: Not on file Smokeless tobacco: Not on file Substance and Sexual Activity Alcohol use: Not on file Drug use: Not on file Sexual activity: Not on file Other Topics Concern Not on file Social History Narrative Not on file HOSPITAL COURSE: 39-year-old male with tobacco use disorder, obesity, polysubstance abuse (alcohol, cocaine and opioids) presented to [facility] ED on 06/22 after being found down on the ground. Presumed to be intoxicated with alcohol, crack cocaine and fentanyl with unknown downtime. Somnolent but arousable in the ED. Hypothermic to 95.1 on arrival. Lethargic. Unknown downtime. Chest x-ray negative. CT head negative. CT C-spine negative. Left hand x-ray negative. Labs significant for significant elevated CK to 17,563 on admission. Imaging negative. Started on IV fluid resuscitation, which was stopped yesterday. CK down trended well wit fluids. On exam he also had bilateral toes were dusky with small abrasions. lastic surgery was consulted for concern of bilateral foot frostbite, recommended no acute surgical intervention, gentle rewarming.He was placed on Cele hugger and quickly achieved normothermia. Plastics team evaluated pt today, their recommendation are as follows : Motrin 600mg q6h, x 72 hours Avoid refreezing, gentle rewarming w/ Cele hugger to feet Dressings: fluffs between toes, loose kerlix wrap After initial resuscitation, pt was more awake after sobering up in the emergency room. He stated that he uses injection drugs, and infact his most recent consumption of alcohol, cocaine and fentanylwas an intentional overdose in an attempt to kill himself, as he has been having suicidal thoughts over 2 days. Section 12 was signed on admission. Seen by psychiatry who recommended continuing section 12. Pt recommended inpatient psych admission. Psych med changes per psych team recommendation. Addiction psych also saw the pt, he did not want to start any new meds Pls note- addiction psych re-evaluated pt and have following recommendations for MAT for opioid usedisorder: You may start Suboxone 2 mg sublingual twice a day for relapse prevention and cravings - We will help connect this patient with Suboxone clinic for when he discharges from inpatient psych unit - Referral to inpatient psych unit as per psychiatry CL team For his DM, A1c is 7.9, endorsed non compliance to home med. No indication to start insulin. Home dose metformin resumed at DC. Recommended to follow up with PCP DISCHARGE DAY INFORMATION: DISCHARGE PHYSICAL EXAM: Vital signs: Blood pressure 145/72, pulse 81, temperature 37 ??C (98.6 ??F), temperature source Oral, resp. rate 18, weight 81.6 kg (180 lb), SpO2 100%. General: Awake, alert, oriented, not in acute distress, speaks minimally HEENT: Normocephalic, atraumatic, NC. AT, MMM Respiratory: Clear to auscultation bilaterally, no added sounds, wheezing, rales, ronchi Cardiovascular: RRR, S1, S2, normal, no murmur Abdomen: Soft, non-tender, non-distended, normal bowel sounds, no masses palpable MS: Bandages removed from bilateral feet. He has blisters bilaterally on the upper part of his toesand some abrasions. No openings. No discharge Neurologic: Awake, alert, oriented to self and that he is in hospital, flat affect, speech normal, non focal LAB AND RADIOLOGY: LABS: Pertinent labs include Recent Results (from the past 48 hours) Amphetamine Qualitative, Urine Collection Time: 06/23/24 4:11 PM Specimen: Voided; Urine Result Value Ref Range Amphetamine Screen, Urine Negative Negative Cocaine Qualitative, Urine Collection Time: 06/23/24 4:11 PM Specimen: Voided; Urine Result Value Ref Range Cocaine Metabolite Screen, Urine Presumptive Positive (A) Negative Morphine and Codeine Confirmation, Urine Collection Time: 06/23/24 4:11 PM Specimen: Voided; Urine Result Value Ref Range Codeine, Urine NEGATIVE <50 ng/mL Hydrocodone, Urine NEGATIVE <50 ng/mL Hydromorphone, Urine NEGATIVE <50 ng/mL Morphine, Urine NEGATIVE <50 ng/mL Norhydrocodone, Urine NEGATIVE <50 ng/mL Marijuana Qualitative Screen, Urine Collection Time: 06/23/24 4:11 PM Specimen: Voided; Urine Result Value Ref Range Marijuana Screen, Urine Negative Negative Phencyclidine (PCP) Screen, Urine Collection Time: 06/23/24 4:11 PM Specimen: Voided; Urine Result Value Ref Range Phencyclidine Screen, Urine NEGATIVE <25 ng/mL Barbiturate Screen, Urine Collection Time: 06/23/24 4:11 PM Specimen: Voided; Urine Result Value Ref Range Barbiturate Screen, Urine Negative Negative Benzodiazepine Qualitative Screen, Urine Collection Time: 06/23/24 4:11 PM Specimen: Voided; Urine Result Value Ref Range Benzodiazepine Screen, Urine Negative Negative Methadone Screen w/Confirmation, Urine Collection Time: 06/23/24 4:11 PM Specimen: Voided; Urine Result Value Ref Range Methadone Metabolite Screen, Urine NEGATIVE <100 ng/mL Propoxyphene Screen, Urine Collection Time: 06/23/24 4:11 PM Specimen: Voided; Urine Result Value Ref Range Propoxyphene Screen, Urine NEGATIVE <300 ng/mL UA [place] Top Collection Time: 06/23/24 4:20 PM Specimen: Clean Catch; Urine Result Value Ref Range Extra Tube Hold for add-ons. POCT Glucose, interfaced Collection Time: 06/23/24 4:57 PM Result Value Ref Range Glucose, POCT 314 (H) 70 - 99 mg/dL Creatine Kinase Collection Time: 06/23/24 8:21 PM Specimen: Venous, Peripheral; Blood Result Value Ref Range CK 5,128 (H) 49 - 348 U/L CBC Auto Differential Collection Time: 06/24/24 6:07 AM Specimen: Venous, Peripheral; Blood Result Value Ref Range WBC 6.8 3.8 - 10.8 10*3/uL RBC 3.79 (L) 4.20 - 5.80 10*6/uL Hemoglobin 9.3 (L) 13.2 - 17.1 g/dL Hematocrit 28.7 (L) 38.5 - 50.0 % MCV 75.7 (L) 80.0 - 100.0 fL MCH 24.5 (L) 27.0 - 33.0 pg MCHC 32.4 32.0 - 36.0 g/dL RDW 15.3 (H) 11.0 - 15.0 % Platelets 174 140 - 400 10*3/uL MPV 10.4 7.5 - 12.5 fL Neutrophil % 63.2 % Immature Grans % 0.3 0.0 - 0.9 % Lymphocyte % 24.7 % Monocyte % 11.4 % Eosinophil % 0.1 % Basophil % 0.3 % Neutrophil # 4.32 1.50 - 7.80 10*3/uL Immature Grans # <0.03 <=0.03 10*3/uL Lymphocyte # 1.70 0.85 - 3.90 10*3/uL Monocyte # 0.80 0.20 - 0.95 10*3/uL Eosinophil # <0.03 0.02 - 0.50 10*3/uL Basophil # <0.03 0.00 - 0.20 10*3/uL nRBC % 0.0 /100 WBCs nRBC # <0.01 <0.01 10*3/uL Basic metabolic panel Collection Time: 06/24/24 6:07 AM Specimen: Venous, Peripheral; Blood Result Value Ref Range NA 139 135 - 145 mmol/L K 4.0 3.5 - 5.3 mmol/L Cl 104 98 - 107 mmol/L CO2 27 22 - 32 mmol/L BUN 14 7 - 23 mg/dL Creatinine 1.00 0.60 - 1.30 mg/dL Glucose 234 (H) 65 - 99 mg/dL Calcium 8.7 8.6 - 10.5 mg/dL Anion Gap 8 5 - 15 eGFR >90 >=60 mL/min/1.73m2 Magnesium Collection Time: 06/24/24 6:07 AM Specimen: Venous, Peripheral; Blood Result Value Ref Range MG 2.1 1.6 - 2.4 mg/dL Phosphorus Collection Time: 06/24/24 6:07 AM Specimen: Venous, Peripheral; Blood Result Value Ref Range Phosphorus 2.2 (L) 2.5 - 4.5 mg/dL Creatine Kinase Collection Time: 06/24/24 6:07 AM Specimen: Venous, Peripheral; Blood Result Value Ref Range CK 3,647 (H) 49 - 348 U/L POCT Glucose, interfaced Collection Time: 06/24/24 7:16 AM Result Value Ref Range Glucose, POCT 228 (H) 70 - 99 mg/dL POCT Glucose, interfaced Collection Time: 06/24/24 12:44 PM Result Value Ref Range Glucose, POCT 243 (H) 70 - 99 mg/dL POCT Glucose, interfaced Collection Time: 06/24/24 6:46 PM Result Value Ref Range Glucose, POCT 341 (H) 70 - 99 mg/dL Creatine Kinase Collection Time: 06/24/24 7:45 PM Specimen: Venous, Peripheral; Blood Result Value Ref Range CK 2,447 (H) 49 - 348 U/L POCT Glucose, interfaced Collection Time: 06/24/24 10:09 PM Result Value Ref Range Glucose, POCT 115 (H) 70 - 99 mg/dL CBC Auto Differential Collection Time: 06/25/24 6:41 AM Specimen: Venous, Peripheral; Blood Result Value Ref Range WBC 6.9 3.8 - 10.8 10*3/uL RBC 4.07 (L) 4.20 - 5.80 10*6/uL Hemoglobin 10.1 (L) 13.2 - 17.1 g/dL Hematocrit 31.7 (L) 38.5 - 50.0 % MCV 77.9 (L) 80.0 - 100.0 fL MCH 24.8 (L) 27.0 - 33.0 pg MCHC 31.9 (L) 32.0 - 36.0 g/dL RDW 15.6 (H) 11.0 - 15.0 % Platelets 185 140 - 400 10*3/uL MPV 10.1 7.5 - 12.5 fL Neutrophil % 63.4 % Immature Grans % 0.1 0.0 - 0.9 % Lymphocyte % 25.0 % Monocyte % 10.0 % Eosinophil % 1.2 % Basophil % 0.3 % Neutrophil # 4.36 1.50 - 7.80 10*3/uL Immature Grans # <0.03 <=0.03 10*3/uL Lymphocyte # 1.70 0.85 - 3.90 10*3/uL Monocyte # 0.70 0.20 - 0.95 10*3/uL Eosinophil # 0.10 0.02 - 0.50 10*3/uL Basophil # <0.03 0.00 - 0.20 10*3/uL nRBC % 0.0 /100 WBCs nRBC # <0.01 <0.01 10*3/uL Basic metabolic panel Collection Time: 06/25/24 6:41 AM Specimen: Venous, Peripheral; Blood Result Value Ref Range NA 140 135 - 145 mmol/L K 4.1 3.5 - 5.3 mmol/L Cl 103 98 - 107 mmol/L CO2 26 22 - 32 mmol/L BUN 11 7 - 23 mg/dL Creatinine 0.97 0.60 - 1.30 mg/dL Glucose 210 (H) 65 - 99 mg/dL Calcium 9.2 8.6 - 10.5 mg/dL Anion Gap 11 5 - 15 eGFR >90 >=60 mL/min/1.73m2 Magnesium Collection Time: 06/25/24 6:41 AM Specimen: Venous, Peripheral; Blood Result Value Ref Range MG 1.8 1.6 - 2.4 mg/dL Phosphorus Collection Time: 06/25/24 6:41 AM Specimen: Venous, Peripheral; Blood Result Value Ref Range Phosphorus 3.0 2.5 - 4.5 mg/dL Creatine Kinase Collection Time: 06/25/24 6:41 AM Specimen: Venous, Peripheral; Blood Result Value Ref Range CK 1,655 (H) 49 - 348 U/L POCT Glucose, interfaced Collection Time: 06/25/24 8:27 AM Result Value Ref Range Glucose, POCT 270 (H) 70 - 99 mg/dL POCT Glucose, interfaced Collection Time: 06/25/24 12:59 PM Result Value Ref Range Glucose, POCT 156 (H) 70 - 99 mg/dL IMAGING: Pertinent Imaging results include X-Ray Hand Left 3+ Views Result Date: 06/22/2024 All Results No acute fracture or dislocation. Alignment and joint spaces are maintained. Soft tissues are within normal limits. If this radiology report contains a blank impression section, it is an incomplete radiology report. Please contact the interpreting radiologist or applicable radiology division as soon as possible to obtain the completed interpretation. Workstation ID: [id number] CT C-Spine WO Contrast Result Date: 06/22/2024 All Results No acute fracture or traumatic malalignment of the cervical spine. If this radiology report contains a blank impression section, it is an incomplete radiology report. Please contact the interpreting radiologist or applicable radiology division as soon as possible to obtain the completed interpretation. Workstation ID: [id number] Up-to-date CT equipment and radiation dose reduction techniques were employed. CTDIvol: 26.2 - 70.4 mGy. DLP: 2128 mGy-cm. The following accession numbers are related to this dose report [id number]: [id number] CT Head WO Contrast Result Date: 06/22/2024 All Results No acute intracranial hemorrhage, large territorial infarction, or mass effect. If thisradiology report contains a blank impression section, it is an incomplete radiology report. Please contact the interpreting radiologist or applicable radiology division as soon as possible to obtain the completed interpretation. Workstation ID: [id number] Up-to-date CT equipment and radiation dose reduction techniques were employed. CTDIvol: 26.2 - 70.4 mGy. DLP: 2128 mGy-cm. The following accession numbers are related to this dose report [id number]: [id number] XR Chest Portable 1 View Result Date: 06/22/2024 All Results No acute pulmonary process or acute displaced fracture. If this radiology report contains a blank impression section, it is an incomplete radiology report. Please contact the interpretingradiologist or applicable radiology division as soon as possible to obtain the completed interpretation. Workstation ID: [id number] GLOBAL PLAN OF CARE CONSULTS: IP CONSULT TO PLASTIC SURGERY IP CONSULT TO ADDICTION PSYCHIATRY IP CONSULT TO PSYCHIATRY IP CONSULT TO WOUND OSTOMY CONTINENCE PROCEDURES: CONDITION: Fair ADVANCED CARE PLANNING Code Status: Full Code Medical Decision Maker: I spent 45 minutes performing discharge day services (e.g. examination, discussion of hospital course, follow up care and planning) as appropriate I saw and evaluated the patient on the date of discharge. I have reviewed, updated, and verified this note's content Signature: Zuleyma Maldonado MD Electronic Signature documented in this encounter Discharge Instructions * Discharge Instructions* AARON Pena - 06/25/2024 8:20 AM EST Plastic & Reconstructive Surgery Recommendations: Follow up: Please follow up in Wound Clinic as scheduled. You may call [phone] (Dr. Salcedo) if you have any questions or if you need to schedule your appointment. Future Appointments Date Time Provider Department Center 07/01/2024 4:00 PM AARON Velasquez [facility] Activity/weight bearing restrictions: No restrictions Dressings/wound care instructions: To do daily: apply dry fluffs between toes, wrap feet loosely with kerlix, secure with tape. documented in this encounter Medications at Time of Discharge acetaminophen (TYLENOL) 325 mg tablet Take 2 tablets (650 mg total) by mouth every 6 hours as needed for headache, pain or fever. 30 tablet 06/25/2024 benztropine (COGENTIN) 0.5 mg tablet Take 1 tablet (0.5 mg total) by mouth 2 times a day. 30 tablet 06/25/2024 folic acid (FOLVITE) 1 mg tablet Take 1 tablet (1 mg total) by mouth once a day for 1 dose. 1 tablet 06/26/2024 haloperidoL (HALDOL) 10 mg tablet Take 10 mg by mouth 2 times a day. 03/03/2024 metFORMIN (GLUCOPHAGE) 1,000 mg tablet Take 1,000 mg by mouth 2 times a day with meals. 03/03/2024 thiamine HCl (VITAMIN B1) 100 mg tablet Take 1 tablet (100 mg total) by mouth once a day. 30 tablet 06/25/2024 ibuprofen (MOTRIN) 600 mg tablet Take 1 tablet (600 mg total) by mouth every 6 hours for 7 doses. 7 tablet 06/25/2024 06/27/2024 documented as of this encounter Progress Notes * Rina Wyman MD - 06/25/2024 6:36 AM EST Images from the original note were not included. Progress Note Plastic & Reconstructive Surgery Name: Celso Blanton Chief Complaint: bilateral foot frostbite Subjective Celso Blanton is doing well overall. Endorses numbness bilaterally to feet. Patient denies fevers, chills, nausea, vomiting, chest pain, or shortness of breath. No acute events overnight. Objective Vitals: Temp: [36.9 ??C (98.4 ??F)-37.2 ??C (98.9 ??F)] 36.9 ??C (98.4 ??F) Heart Rate: [70-77] 77 Resp: [16-18] 18 BP: (112-121)/(63-77) 120/77 SpO2: [96 %-100 %] 100 % Physical Exam: General: Alert and oriented, in no acute distress Head: Normocephalic, atraumatic Eyes: Extra-ocular movements intact Cardiovascular: Palp DP pulses Respiratory: Unlabored breathing Musculoskeletal: No musculoskeletal deformities Skin: Warm and well-perfused, no rashes or ulcers Psychiatric: Affect appropriate Neuro: No focal deficits PRS Focused Exam: blisters intact bilaterally, palp DPs, diminished sensation to light touch on toes Labs: CBC and Coags: Results from last 7 days Lab Units 06/24/24 0607 06/23/24 0745 06/22/24 0808 WBC 10*3/uL 6.8 7.2 10.9* RBC 10*6/uL 3.79* 3.88* 4.68 HEMOGLOBIN g/dL 9.3* 9.6* 11.5* HEMATOCRIT % 28.7* 29.6* 35.7* PLATELETS 10*3/uL 174 161 186 Chemistry: Results from last 7 days Lab Units 06/24/24 0607 06/23/24 0746 06/22/24 1513 06/22/24 0808 SODIUM mmol/L 139 138 136 138 POTASSIUM mmol/L 4.0 4.4 5.0 4.7 CHLORIDE mmol/L 104 102 99 97* CARBON DIOXIDE mmol/L 27 26 18* 16* BUN mg/dL 14 21 37* 50* CREATININE mg/dL 1.00 1.06 1.17 1.30 CALCIUM mg/dL 8.7 8.8 8.3* 9.3 MAGNESIUM mg/dL 2.1 2.2 -- -- PHOSPHORUS mg/dL 2.2* 1.7* -- -- ALBUMIN g/dL -- -- -- 4.5 TOTAL BILIRUBIN mg/dL -- -- -- 0.5 ALKALINE PHOSPHATASE U/L -- -- -- 60 ALT U/L -- -- -- 142* AST U/L -- -- -- 314* GLUCOSE mg/dL 234* 259* 293* 235* I&O's: Intake/Output Summary (Last 24 hours) at 06/25/2024 0636 Last data filed at 06/24/2024 2129 Gross per 24 hour Intake 440 ml Output -- Net 440 ml Microbiology: Culture Date Value Ref Range Status 06/22/2024 No growth to date Preliminary 06/22/2024 No growth to date Preliminary COVID Status: Lab Results Component Value Date COVID19 Not Detected 06/22/2024 Imaging/Other Studies: No radiology results in the last 2 days I have personally reviewed this patient's imaging for this admission. Assessment & Plan Patient Active Problem List Diagnosis Tobacco use disorder Obesity Nondependent alcohol abuse Rhabdomyolysis Cocaine use disorder (HCC) Opioid use disorder Frostbite of both feet Fever T2DM (type 2 diabetes mellitus) (HCC) AVRIL (obstructive sleep apnea) Cardiomegaly Suicidal ideation Intentional drug overdose ([facility]) Celso Blanton is a 39 y.o. male who presents with frostbite to his bilateral feet for which PRS was consutled . HD#3 days. His blisters remain intact, and dressings were changed at the bedside. Continue daily dressing changes per RN. He is ok to discharge from plastic surgery perspective. Care per IM Motrin 600mg q6h, x 72 hours Avoid refreezing, gentle rewarming w/ Cele hugger to feet Dressings: fluffs between toes, loose kerlix wrap Rina Wyman MD PGY-1 Plastic & Reconstructive Surgery Contact Information: -Sunday to Sunday 6am-5pm: #[phone] (PRSS) for primary patients and existing consults; see PRS on callschedule for new consults -Sunday to Sunday 5pm-6am & Weekends: see PRS reduction furnace operator helper schedule for primary patients, existing consults, and new consults * Zuleyma Maldonado MD - 06/24/2024 3:08 PM EST Images from the original note were not included. DAILY PROGRESS NOTE INTERNAL MEDICINE 06/24/2024 Celso Blanton is a 39 y.o. male tobacco use disorder, obesity, polysubstance abuse (alcohol, cocaine and opioids) who was admitted on 06/22/2024 (Hospital Day: 3) after being found down on the ground, was found to have Rhabdomyolysis. Presumed to be intoxicated with alcohol, crack cocaine and fentanyl with unknown downtime. Somnolent but arousable in the ED. Hypothermic to 95.1 on arrival. Lethargic. Bilateral toes were dusky withsmall abrasions. Chest x-ray negative. CT head negative. CT C-spine negative. Left hand x-ray negative. Patient was warmed and given IV fluids and admitted to hospital medicine. Under section 12 for possible intentional drug overdose. SUBJECTIVE CHIEF COMPLAINT: Chief Complaint Patient presents with Found Down 06/24/2024 24 HOUR EVENTS: No major acute medical events overnight No new procedures. Plan of care d/w psych team- continues to be section 12 Increased benztropine to BID per psych recommendations May use haldol PRN if agitated RN called me later in the day- pt did not wish to be on section 12- I discussed this with the pt, he is unable to come off section, without psych team clearance Stop IV fluids, is able to keep with PO, CK is coming down and creat is stable Stop CIWA assessment per psych team recommendation- he is also not scoring on CIWA Wound care consult requested for LL wounds OBJECTIVE VITAL SIGNS FOR PAST 24 Hours ([High] [Low] (Last Recorded Value)): Temp: [36.8 ??C (98.3 ??F)-37.2 ??C (99 ??F)] 36.8 ??C (98.3 ??F) Heart Rate: [71-91] 71 Resp: [16-18] 16 BP: (109-121)/(63-89) 121/72 SpO2: [96 %-99 %] 97 % I/Os LAST 24 HOURS: Intake/Output Summary (Last 24 hours) at 06/24/2024 1508 Last data filed at 06/24/2024 0712 Gross per 24 hour Intake 450 ml Output -- Net 450 ml MEDICATIONS: Current hospital medications reviewed. Scheduled Meds:benztropine, 0.5 mg, oral, 2x daily enoxaparin, 40 mg, subcutaneous, Daily folic acid, 1 mg, oral, Daily haloperidoL, 5 mg, oral, q12h ASHLEY ibuprofen, 600 mg, oral, q6h insulin glargine, 5 Units, subcutaneous, Daily with breakfast insulin lispro, 2-10 Units, subcutaneous, 3x daily with meals sodium chloride, 2.5-10 mL, intravenous, See admin instructions And sodium chloride, 2.5-10 mL, intravenous, q12h ASHLEY thiamine, 500 mg, intravenous, q8h ASHLEY Followed by [START ON 06/25/2024] thiamine, 250 mg, intravenous, q24h ASHLEY Followed by [START ON 06/30/2024] thiamine, 100 mg, oral, Daily Continuous Infusions: PRN Meds:.PRN medications: acetaminophen, dextrose OR dextrose OR dextrose OR glucagon,diazePAM, diazePAM, diazePAM, diazePAM, diazePAM, diazePAM PHYSICAL EXAM: General: Awake, alert, oriented, not in acute distress, speaks minimally HEENT: Normocephalic, atraumatic, NC. AT, MMM Respiratory: Clear to auscultation bilaterally, no added sounds, wheezing, rales, ronchi Cardiovascular: RRR, S1, S2, normal, no murmur Abdomen: Soft, non-tender, non-distended, normal bowel sounds, no masses palpable MS: Bandages removed from bilateral feet. He has blisters bilaterally on the upper part of his toesand some abrasions. No openings. No discharge Neurologic: Awake, alert, oriented to self and that he is in hospital, flat affect, speech normal, non focal LAB: Most recent pertinent laboratory results reviewed. Latest Ref Rng & Units 06/24/2024 6:07 AM CBC WBC 3.8 - 10.8 10*3/uL 6.8 Hgb 13.2 - 17.1 g/dL 9.3 Hct 38.5 - 50.0 % 28.7 MCV 80.0 - 100.0 fL 75.7 Plts 140 - 400 10*3/uL 174 139 I 104 I 14 - - - - - - - - - - -< 234 4.0 I 27 I 1.00 Diagnostics & Labs Component Value Date GLUCOSE 234 (H) 06/24/2024 Latest Ref Rng & Units 06/22/2024 8:08 AM Liver Function Tests Total Protein 6.0 - 8.0 g/dL 8.1 Albumin 3.5 - 5.2 g/dL 4.5 Bilirubin, Total 0.2 - 1.2 mg/dL 0.5 Alkaline Phosphatase 35 - 129 U/L 60 AST 10 - 40 U/L 314 ALT 10 - 40 U/L 142 No results found for: INR , PROTIME Most recent thyroid function test: Lab Results Component Value Date TSH 0.337 06/23/2024 Last Echo: Prior Echo Procedures No resulted procedures found. IMAGING/OTHER STUDIES: No radiology results in the last 2 days HOSPITAL PROBLEMS: Principal Problem: Rhabdomyolysis Active Problems: Nondependent alcohol abuse Cocaine use disorder (HCC) Opioid use disorder Frostbite of both feet Fever T2DM (type 2 diabetes mellitus) (HCC) AVRIL (obstructive sleep apnea) Suicidal ideation Intentional drug overdose (HCC) ASSESSMENT & PLAN Assessment & Plan Rhabdomyolysis Pt presented on 06/22 after being found down outside after an intentional overdose with alcohol, crack cocaine and fentanyl. Found to be hypothermic on presentation. Unknown downtime. Labs significant for significant elevated CK to 17,563 on admission. Imaging negative. Started on IV fluid resuscitation which was continued. CK is downtrending Trend renal function daily Hold further IV fluids - is able to keep up with PO intake Continue regular diet Frostbite of both feet This admission, in the ED patient was hypothermic to 90 5.1F with exam noting bilateral toes were dusky. Plastic surgery was consulted for concern of bilateral foot frostbite, recommended no acute surgical intervention, gentle rewarming. He was placed on Cele hugger and quickly achieved normothermia. Noted to have blisters on bilateral feet, with no signs of active infection. 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 Later febrile with a Tmax of 101.3. Mild leukocytosis to 10.9 on admission down trended quickly. CXR unremarkable, CT head without contrast unremarkable, CT C-spine without contrast showed no acute fractures or malalignment, x-ray left hand unremarkable.Given Td vaccination. UA showed 3+ glucose 1+ ketones 2+ blood no WBCs no RBCs no bacteria. Antibiotics held and patient is now afebrile. -Follow-up blood cultures: No growth to date -Continue trending CBC daily Continue to hold antibiotics and monitor. Opioid use disorder See intentional drug overdose discussion. History of polysubstance use disorder (alcohol, cocaine, opioids), last injection drug use 06/21/24. Patient was previously in a drug rehab program before being discharged to [facility], more recently he is homeless and unable to obtain his psychiatric medications. At time of admission, he was agreeable to meeting with addiction psychiatry. Stopped CIWA protocol- not scoring C/w folic acid supplementation High-dose thiamine: Thiamine 500 mg every 8 hours x 2 days then 250 mg IV daily followed by p.o. supplementation Follow-up toxicology screen -Addiction psychiatry consulted and following Intentional drug overdose (HCC) History of polysubstance use disorder (alcohol, cocaine, opioids), who presented to [facility] ED on 06/22/2024 after being found down. Patient had recently used alcohol, crack cocaine, and fentanyl, was found down with unknown downtime. More awake after sobering up in the emergency room. He does states that he uses injection drugs, and intact he states that his most recent consumption of alcohol, cocaine and fentanyl was an intentional overdose in an attempt to kill himself, as he has been having suicidal thoughts over the last 2 days. Section 12 was signed on admission. Seen by psychiatry who recommended continuing section 12. Section 12: Continues to meet criteria at this time Continue constant observation with suicide precautions C/w Haldol 5 mg p.o. twice daily Incr Cogentin to 0.5 mg BID Appreciate psychiatry consultation Follow-up TSH, folic acid and B12 Follow-up toxicology screen Follow-up addiction medicine consultation Nondependent alcohol abuse See intentional drug overdose discussion. Cocaine use disorder (HCC) See intentional drug overdose discussion. T2DM (type 2 diabetes mellitus) (HCC) History of T2DM, managed with metformin 1000 mg p.o. twice daily, though patient has not been able to fill medications recently. At time of admission, glucose was in the 200s. Diabetic diet C/w Lantus 5 units nightly C/w medium dose insulin sliding scale HOLD metformin -Follow-up hemoglobin A1c -Continue LDISS ACHS -HOLDING home metformin 1000 mg p.o. twice daily AVRIL (obstructive sleep apnea) History of AVRIL, not on CPAP. Suicidal ideation See intentional drug overdose discussion. I have discussed the plan of care with: Patient and Inter-professional team. Care Communication note: GLOBAL PLAN OF CARE FLUIDS AND NUTRITION FLUIDS: NUTRITION: Diet, Adult Suicide Risk Safety Tray with counting utensils; Full participation; Carbohydrate Consistent; 60 GM VTE PROPHYLAXIS Enoxaparin Has order for no Mechanical VTE/DVT Prophylaxis ADVANCED CARE PLANNING Code Status: Full Code Medical Decision Maker: I have reviewed, updated, and verified this note's content. I spent a total of 55 minutes on the date of encounter, which included: ?? Preparing to see the patient (e.g., review of test results) ?? Obtaining and/or reviewing separately obtained history ?? Performing a medically appropriate exam and/or evaluation ?? Counseling and educating the patient/family/caregiver ?? Ordering medications, tests, procedures ?? Referring and communicating with other healthcare professionals, when not separately reported ?? Documenting clinical information in the health record ?? Independently interpreting results (not separately reported) and communicating results to the patient/family/caregiver ?? Care coordination not separately reported Signature: Zuleyma Maldonado MD Electronic Signature * Quintin Ng MD - 06/23/2024 2:15 PM EST Images from the original note were not included. Progress Note Subjective CHIEF COMPLAINT: 39-year-old male with a past medical history of tobacco use disorder, obesity, polysubstance abuse (alcohol, cocaine and opioids) presented to [facility] ED on 06/22 after being found down on the ground. Presumed to be intoxicated with alcohol, crack cocaine and fentanyl with unknown downtime. Somnolent but arousable in the ED. Hypothermic to 95.1 on arrival. Lethargic. Bilateral toes were dusky withsmall abrasions. Labs significant for rhabdomyolysis. Chest x-ray negative. CT head negative. CT C-spine negative. Left hand x-ray negative. Patient was warmed and given IV fluids and admitted to hospital medicine. Under section 12 for possible intentional drug overdose. 24 HOUR INTERVAL HISTORY: Patient seen while laying on the stretcher in the hallway in the emergency room. Had no immediate complaints. Fell asleep easily but was able to converse with me. Did not know where he was or how he got here. Did not sleep well as he is in the hallway overnight. Seen by psychiatry: Continue section 12. Get B12, folic acid and TSH. Request addiction medicine's on consultation and urine toxicology screen. Also suggested starting Haldol 5 mg p.o. twice daily and Cogentin 0.5 mg daily. Patient was tachycardic and febrile overnight to 101.3. Afebrile currently. General: Feels well and slept overnight. Cardiovascular: Denies any chest pain or palpitations. Pulmonary: Denies any shortness of breath or cough. GI: Denies any abdominal pain, nausea, vomiting, diarrhea or constipation. : Denies any urinary retention. Objective Temp: [37.2 ??C (99 ??F)-38.5 ??C (101.3 ??F)] 37.2 ??C (99 ??F) Heart Rate: [74-111] 89 Resp: [16-24] 16 BP: (109-158)/(64-92) 111/64 SpO2: [93 %-100 %] 100 % Physical Exam General Appearance: The patient is a middle-age male found laying on a stretcher in the emergency room. And in NAD. Cardiovascular: RRR S1 and S2 heard with no M/R/G. No JVD. Respiratory: Breath sounds clear to auscultation bilaterally. No wheezing. Good air movement throughout both lungs. GI: Soft. Nontender and nondistended. Normal bowel sounds present throughout abdomen. MS: Bandages removed from bilateral feet. He has blisters bilaterally on the upper part of his toesand some abrasions. No openings. No discharge. See images below. Neuro: No slurred speech. Tired but wakes up and answers questions. Psych: Alert and oriented x1. Flat affect. Answering questions appropriately. Lines: Peripheral IV in place. Results Reviewed: Labs: Electrolytes this morning stable except for low phosphorus at 1.7. CK level continues to downtrend from 8461-7812 today. Anemia worsened from 11.5-9.6 in the setting of IV fluid resuscitation. Leukocytosis now resolved. Hyperglycemic with glucoses over 200. Hemoglobin A1c of 7.9. Assessment & Plan Rhabdomyolysis Presented on 06/22 after being found down outside after an intentional overdose with alcohol, crack cocaine and fentanyl. Found to be hypothermic on presentation. Unknown downtime. Labs significant forsignificant elevated CK to 17,563 on admission. Imaging negative. Started on IV fluid resuscitationwhich was continued. Today: Renal function remained stable. And CKs downtrending nicely. 7400 today down from 9500 yesterday. Plan Continue trending CK every 12 hours Trend renal function daily Continue IV fluids at current rates Continue regular diet Frostbite of both feet This admission, in the ED patient was hypothermic to 90 5.1F with exam noting bilateral toes were dusky. Plastic surgery was consulted for concern of bilateral foot frostbite, recommended no acute surgical intervention, gentle rewarming. He was placed on Cele hugger and quickly achieved normothermia. Today: Blisters on bilateral feet. Are closed at this time. No signs of active infection. Plan -Plan for plastic surgery reevaluation on 06/25 versus 06/26 -Continue fluffs between toes and loose Kerlix wraps Fever Initially hypothermic secondary to exposure. Later febrile with a Tmax of 101.3. Mild leukocytosis to 10.9 on admission down trended quickly. CXR unremarkable, CT head without contrast unremarkable, CT C-spine without contrast showed no acute fractures or malalignment, x-ray left hand unremarkable.Given Td vaccination. UA showed 3+ glucose 1+ ketones 2+ blood no WBCs no RBCs no bacteria. Antibiotics held and patient is now afebrile. Today: Remains afebrile. No indication for antibiotics at this time. Will continue to monitor. Plan -Follow-up blood cultures: No growth to date -Continue trending CBC daily Continue to hold antibiotics and monitor. Opioid use disorder See intentional drug overdose discussion. History of polysubstance use disorder (alcohol, cocaine, opioids), last injection drug use 06/21/24. Patient was previously in a drug rehab program before being discharged to [facility], more recently he is homeless and unable to obtain his psychiatric medications. At time of admission, he was agreeable to meeting with addiction psychiatry. Plan Start CIWA protocol Add folic acid supplementation High-dose thiamine: Thiamine 500 mg every 8 hours x 2 days then 250 mg IV daily followed by p.o. supplementation Follow-up toxicology screen -Addiction psychiatry consulted, email sent. Intentional drug overdose (HCC) History of polysubstance use disorder (alcohol, cocaine, opioids), who presented to [facility] ED on 06/22/2024 after being found down. Patient had recently used alcohol, crack cocaine, and fentanyl, was found down with unknown downtime. More awake after sobering up in the emergency room. He does states that he uses injection drugs, and intact he states that his most recent consumption of alcohol, cocaine and fentanyl was an intentional overdose in an attempt to kill himself, as he has been having suicidal thoughts over the last 2 days. Section 12 was signed on admission. Seen by psychiatry who recommended continuing section 12. Today: Continue section 12 per psychiatry. Haldol and Cogentin started per their recommendations. Plan Section 12: Continues to meet criteria at this time Continue constant observation with suicide precautions RESTART Haldol 5 mg p.o. twice daily RESTART Cogentin 0.5 mg daily Appreciate psychiatry consultation Follow-up TSH, folic acid and B12 Follow-up toxicology screen Follow-up addiction medicine consultation Nondependent alcohol abuse See intentional drug overdose discussion. Cocaine use disorder (HCC) See intentional drug overdose discussion. T2DM (type 2 diabetes mellitus) (HCC) History of T2DM, managed with metformin 1000 mg p.o. twice daily, though patient has not been able to fill medications recently. At time of admission, glucose was in the 200s. Today: Has been hyperglycemic. Will be increasing insulin as below. Plan START diabetic diet START Lantus 5 units nightly INCREASE to medium dose insulin sliding scale HOLD metformin -Follow-up hemoglobin A1c -Continue LDISS ACHS -HOLDING home metformin 1000 mg p.o. twice daily AVRIL (obstructive sleep apnea) History of AVRIL, not on CPAP. Suicidal ideation See intentional drug overdose discussion. GLOBAL PLAN OF CARE FLUIDS AND NUTRITION FLUIDS: Current Fluids/Electrolytes/TPN Stop lactated Ringer's (LR) premix infusion intravenous, Continuous 06/25/24 1414 lactated Ringer's (LR) premix infusion intravenous, Continuous 06/23/24 5046 NUTRITION: Diet, Adult Suicide Risk Safety Tray with counting utensils; Full participation; Regular VTE PROPHYLAXIS Enoxaparin Has order for no Mechanical VTE/DVT Prophylaxis ADVANCED CARE PLANNING Code Status: Full Code Medical Decision Maker: I have reviewed, updated, and verified this note's content. I spent a total of 57 minutes on the date of encounter, which included: ?? Preparing to see the patient (e.g., review of test results) ?? Obtaining and/or reviewing separately obtained history ?? Performing a medically appropriate exam and/or evaluation ?? Counseling and educating the patient/family/caregiver ?? Ordering medications, tests, procedures ?? Referring and communicating with other healthcare professionals, when not separately reported ?? Documenting clinical information in the health record Signature: Quintin Ng MD Electronic Signature documented in this encounter H&P Notes * Alex Hines MD - 06/22/2024 5:43 PM EST Images from the original note were not included. History & Physical [facility] Admission Date: 06/22/2024 7:39 AM LOS: 1 day Primary Care Physician: PATIENT, HAS NO PCP OR REF Attending Physician: Alex Hines MD Service: Hospital Medicine SUBJECTIVE Chief Complaint: Found down; rhabdomyolysis HPI: Celso Blanton is a 39 y.o. male with a PMHx of smoking, obesity, polysubstance use disorder(alcohol, cocaine, opioids), who presented to [facility] ED on 06/22/2024 after being found down. Patient had recently used alcohol, crack cocaine, and fentanyl, was found down with unknown downtime. In the ED, patient was somnolent but arousable, complained of headache and bilateral hand pain. Vitals included HR 80-110s, RR 17-24, BP 140s, hypothermic to 95.1F, satting 93-100% on room air. Exam noted lethargy but responsive to voice and pain, oriented to self only, dry mucous membranes, bilateral toes dusky, small abrasion on left hand with mild swelling. Labs included WBC 10.9, Hgb 11.5, PLT 186, NA 138, K4.7, CO2 16, AG 25, glucose 235, creatinine 1.30, AST 314, ALT 142, T. bili normal, ALP normal, lipase 27, ethanol level <10, lactate 2.7 then 1.6, CK 17,563, mini RVP negative, EKGshowed NSR rate 86 no ischemic changes, CXR unremarkable, CT head without contrast unremarkable, CTC- spine without contrast showed no acute fractures or malalignment, x-ray left hand unremarkable. Plastic surgery was consulted for concern of bilateral foot frostbite, recommended no acute surgical intervention, gentle rewarming. He was placed on Cele hugger, given 2L LR bolus x 1, given Tylenol IV x 1, Td vaccination, and admitted to hospital medicine. Patient was later febrile to 100.8 F despite being off Cele hugger for hours. On current encounter, patient is much more awake and alert, and states that he is feeling feverish.He has not noticed any recent wounds other than his frostbite. He does states that he uses injection drugs, and intact he states that his most recent consumption of alcohol, cocaine and fentanyl was an intentional overdose in an attempt to kill himself, as he has been having suicidal thoughts over the last 2 days. He was previously in a drug rehab program before being discharged to [facility], more recently he is homeless and unable to obtain his psychiatric medications. He was able to complete a full medication reconciliation; the only medications he states he is actively taking are Haldol, metformin, and Seroquel, though he does not know the doses. He also has a past medical history of T2DM, AVRIL and cardiomegaly. Review of Systems: General: Positive for fevers. Denies chills, fatigue, diaphoresis, or unintended weight change. HEENT: Denies headache, vision or hearing changes, dysphagia, or any neck masses. Cardiovascular: Denies chest pain, palpitations or edema. Pulmonary: Denies cough or dyspnea. Gastrointestinal: Denies abdominal pain, nausea, vomiting, diarrhea, constipation, or bloody stools. Genitourinary: Denies urinary frequency/urgency, dysuria or hematuria. Integumentary: Denies rash, discoloration, or swelling. Musculoskeletal: Denies arthralgias or difficulty walking. Neurological: Denies focal weakness or numbness. Psychological: Positive for depression and suicidal ideation. Denies anxiety and homicidal ideation. Past Medical History: No past medical history on file. Past Surgical History: No past surgical history on file. Home Medications: (Not in a hospital admission) Allergies: Allergies Allergen Reactions Codeine Unknown Immunizations: Immunization History Administered Date(s) Administered Covid-19 Monovalent Vaccine, Moderna, mRNA, PF 09/10/2020, 06/21/2021 INFLUENZA, SPLIT VIRUS, TRIVALENT, PF 05/03/2017 Influenza, Trivalent, MDV, Injectable 02/18/2011, 03/17/2011 PPD Test 05/24/2011, 05/26/2011 Pneumococcal Polysaccharide Vaccine, 23 Valent 05/24/2011 Tetanus Toxoid, Reduced Diphtheria Toxoid, and Acellular Pertussis Vaccine, Adsorbed 05/24/2011, 08/06/2022 Tetanus and Diphtheria Toxoids, Adsorbed, Preservative Free, for Adult Use (5 Lf of Tetanus Toxoid and 2 Lf of Diphtheria Toxoid) 06/22/2024 Family History: No family history on file. Social History: Objective Physical Exam: Vitals: 06/22/241944 BP: 119/66 Pulse: (!) 110 Resp: 20 Temp: (!) 38.5 ??C (101.3 ??F) SpO2: 97% Wt Readings from Last 2 Encounters: No data found for Wt Intake/Output Summary (Last 24 hours) at 06/23/2024 0005 Last data filed at 06/22/2024 1112 Gross per 24 hour Intake 2000 ml Output -- Net 2000 ml General: Comfortable, conversant, pleasant, in no acute distress. Volume status: Euvolemic, moist mucous membranes, no JVD, no edema or anasarca. HEENT: Normocephalic, atraumatic, anicteric sclera, PERRLA, EOMI, external ears normal, normal nares, normal oropharynx without erythema or exudates, neck is supple withou open t lymphadenopathy or thyromegaly. Cardiovascular: RRR, normal S1 and S2, no murmurs, rubs or gallops. Pulmonary: Normal work of breathing, CTA bilaterally, no adventitious breath sounds. Abdomen: Soft, non-distended, normoactive bowel sounds, non-tender x4 quadrants, no hepatosplenomegaly or masses. Integumentary: No rash, discoloration or scars. Extremities: Bilateral feet covered in sterile gauze wraps. Normal ROM, no deformities. Neurological: Grossly fully oriented. Sensation grossly intact. Strength 5/5 x4 extremities. Psychological: Depressed mood and affect, endorsing suicidal ideation. Foot exam 06/22/24: Labs: No lab exists for component: PHBLDGAS , PACO2 , SAO2 , HCO3 Results from last 7 days Lab Units 06/22/24 1513 06/22/24 0808 SODIUM mmol/L 136 138 POTASSIUM mmol/L 5.0 4.7 CHLORIDE mmol/L 99 97* CARBON DIOXIDE mmol/L 18* 16* ANION GAP 19* 25* BUN mg/dL 37* 50* CREATININE mg/dL 1.17 1.30 CALCIUM mg/dL 8.3* 9.3 No lab exists for component: POCGLUCOSE Results from last 7 days Lab Units 06/22/24 0808 RBC 10*6/uL 4.68 HEMOGLOBIN g/dL 11.5* HEMATOCRIT % 35.7* MCV fL 76.3* MCH pg 24.6* MCHC g/dL 32.2 RDW % 15.3* PLATELETS 10*3/uL 186 WBC 10*3/uL 10.9* No results found for this or any previous visit. Results from last 7 days Lab Units 06/22/24 1059 06/22/24 0808 LACTIC ACID mmol/L 1.6 2.7* Results from last 7 days Lab Units 06/22/24 0808 ALBUMIN g/dL 4.5 AST U/L 314* ALT U/L 142* ALKALINE PHOSPHATASE U/L 60 TOTAL BILIRUBIN mg/dL 0.5 LIPASE U/L 27 No lab exists for component: T3 No components found for: [id number] No results found for: CKTOTAL , CKMB , CKMBINDEX , TROPONINI , TROPONINT , MYOGLOBIN Urinalysis: Results from last 7 days Lab Units 06/22/24 1938 COLOR, UA Light Yellow CLARITY, UA Clear GLUCOSE, UA 3+* KETONES, UA 1+* BLOOD, UA 2+* RBC, UA /HPF <1 WBC, UA /HPF <1 Microbiology: No results found for: CDIFFTOXIN No results found for: HAV , HEPAIGM , HEPBCAB , HBEAG , HEPCAB Microbiology Results (last 21 days) No results found for the last 504 hours. Imaging: X-Ray Hand Left 3+ Views Result Date: 06/22/2024 No acute fracture or dislocation. Alignment and joint spaces are maintained. Soft tissues are within normal limits. If this radiology report contains a blank impression section, it is an incomplete radiology report. Please contact the interpreting radiologist or applicable radiology division as soon as possible to obtain the completed interpretation. Workstation ID: [id number] CT C-Spine WO Contrast Result Date: 06/22/2024 No acute fracture or traumatic malalignment of the cervical spine. If this radiology report contains a blank impression section, it is an incomplete radiology report. Please contact the interpreting radiologist or applicable radiology division as soon as possible to obtain the completed interpretation. Workstation ID: [id number] Up-to-date CT equipment and radiation dose reduction techniques wereemployed. CTDIvol: 26.2 - 70.4 mGy. DLP: 2128 mGy-cm. The following accession numbers are related to this dose report [id number]: [id number] CT Head WO Contrast Result Date: 06/22/2024 No acute intracranial hemorrhage, large territorial infarction, or mass effect. If this radiology report contains a blank impression section, it is an incomplete radiology report. Please contact the interpreting radiologist or applicable radiology division as soon as possible to obtain the completed interpretation. Workstation ID: [id number] Up-to-date CT equipment and radiation dose reduction techniques were employed. CTDIvol: 26.2 - 70.4 mGy. DLP: 2128 mGy-cm. The following accession numbers are related to this dose report [id number]: [id number] XR Chest Portable 1 View Result Date: 06/22/2024 No acute pulmonary process or acute displaced fracture. If this radiology report contains a blank impression section, it is an incomplete radiology report. Please contact the interpreting radiologistor applicable radiology division as soon as possible to obtain the completed interpretation. Workstation ID: [id number] Assessment & Plan 39 y.o. male with smoking, obesity, polysubstance use disorder (alcohol, cocaine, opioids), who presented to [facility] ED on 06/22/2024 after being found down. Patient had recently used alcohol, crack cocaine, and fentanyl, was found down with unknown downtime. In the ED, patient was somnolent but arousable, complained of headache and bilateral hand pain. Vitals included hypothermic to 95.1F. Exam noted lethargy but responsive to voice and pain, oriented to self only, dry mucous membranes, bilateral toes dusky, small abrasion on left hand with mild swelling. Labs included WBC 10.9, Hgb 11.5, PLT 186, NA 138, K4.7, CO2 16, AG 25, glucose 235, creatinine 1.30, AST 314, ALT 142, T. bili normal, ALP n ormal, lipase 27, ethanol level <10, lactate 2.7 then 1.6, CK 17,563, mini RVP negative, EKG showed NSR rate 86 no ischemic changes, CXR unremarkable, CT head without contrast unremarkable, CT C-spine without contrast showed no acute fractures or malalignment, x-ray left hand unremarkable. He was placed on Cele hugger, given 2L LR bolus x 1, given Tylenol IV x 1, Td vaccination, and admitted to hospital medicine. * Rhabdomyolysis Assessment & Plan Patient presented to [facility] ED on 06/22/2024 after being found down, for an unknown downtime, after anintentional overdose with alcohol, crack cocaine, and fentanyl. In the ED, patient was somnolent, vitals included HR 80-110s, RR 17- 24, BP 140s, hypothermic to 95.1F, satting 93-100% on room air. Exam noted lethargy but responsive to voice and pain, oriented to self only, dry mucous membranes, bilateral toes dusky, small abrasion on left hand with mild swelling. Labs included WBC 10.9, Hgb 11.5, PLT 186, NA 138, K4.7, CO2 16, AG 25, glucose 235, creatinine 1.30, AST 314, ALT 142, T. bili normal, ALP normal, lipase 27, ethanol level <10, lactate 2.7 then 1.6, CK 17,563, mini RVP negative, EKG showed NSR rate 86 no ischemic changes, CXR unremarkable, CT head without contrast unremarkable, CT C-spine without contrast showed no acute fractures or malalignment, x-ray left hand unremarkable.He was given 2 L IV fluid bolus x 1, and CK trended down to 12,274. -Continue trending CK every 6 hours -Continue IV fluids with LR at 150 cc/H -Continue regular diet -Continue DVT PPx with Lovenox 40 mg subcu daily Fever Assessment & Plan Patient initially presented with hypothermia to 95.1F, remainder vital stable. Exam noted bilateraltoes dusky, small abrasion on left hand with mild swelling. Labs included WBC 10.9, Hgb 11.5, PLT 186, NA 138, K4.7, CO2 16, AG 25, glucose 235, creatinine 1.30, AST 314, ALT 142, T. bili normal, ALPnormal, lipase 27, ethanol level <10, lactate 2.7 then 1.6, CK 17,563, mini RVP negative, EKG tressa wed NSR rate 86 no ischemic changes, CXR unremarkable, CT head without contrast unremarkable, CT C-spine without contrast showed no acute fractures or malalignment, x-ray left hand unremarkable. Given Td vaccination. Patient was later febrile to 100.8 F despite being off Cele hugger for hours. Began a basic infectious workup, with particular attention to history of IV drug use. UA showed 3+ glucose 1+ ketones 2+ blood no WBCs no RBCs no bacteria. -Follow-up blood cultures -Continue trending CBC daily -Holding off on antibiotics for now given no source identified Frostbite of both feet Assessment & Plan This admission, in the ED patient was hypothermic to 90 5.1F with exam noting bilateral toes were dusky. Plastic surgery was consulted for concern of bilateral foot frostbite, recommended no acute surgical intervention, gentle rewarming. He was placed on Cele hugger and quickly achieved normothermia. -Plan for plastic surgery reevaluation on 06/25 versus 06/26 -Continue fluffs between toes and loose Kerlix wraps -Plastic surgery following, recommended no acute surgical intervention, gentle rewarming with Cele hugger, Motrin 600 mg every 6 hours x 72 hours, fluffs between toes and loose Kerlix wraps, will continue to follow and repeat exam on 06/25 versus 06/26 Intentional drug overdose (HCC) Assessment & Plan History of polysubstance use disorder (alcohol, cocaine, opioids), who presented to [facility] ED on 06/22/2024 after being found down. Patient had recently used alcohol, crack cocaine, and fentanyl, was found down with unknown downtime. At time of admission, patient was much more awake and alert, and states that he is feeling feverish. He has not noticed any recent wounds other than his frostbite. He does states that he uses injection drugs, and intact he states that his most recent consumption of alcohol, cocaine and fentanyl was an intentional overdose in an attempt to kill himself, as he has been having suicidal thoughts over the last 2 days. On medication reconciliation, patient stated the only medications he takes are Haldol, metformin, and Seroquel, though he does not know the doses, and he has not been able to take his medications lately as he has been homeless. Placed on section 12. -Maintain section 12a -Continue suicide precautions -Continue 1:1 observation -HOLDING home Haldol -HOLDING home Seroquel -Psychiatry consulted, will evaluate patient on 04/22 morning Suicidal ideation Assessment & Plan See intentional drug overdose discussion. AVRIL (obstructive sleep apnea) Assessment & Plan History of AVRIL, not on CPAP. T2DM (type 2 diabetes mellitus) ([facility]) Assessment & Plan History of T2DM, managed with metformin 1000 mg p.o. twice daily, though patient has not been able to fill medications recently. At time of admission, glucose was in the 200s. -Follow-up hemoglobin A1c -Continue LDISS ACHS -HOLDING home metformin 1000 mg p.o. twice daily Opioid use disorder Assessment & Plan See intentional drug overdose discussion. History of polysubstance use disorder (alcohol, cocaine, opioids), last injection drug use 06/21/24. Patient was previously in a drug rehab program before being discharged to [facility], more recently he is homeless and unable to obtain his psychiatric medications. At time of admission, he was agreeable to meeting with addiction psychiatry. -Addiction psychiatry consulted Cocaine use disorder (HCC) Assessment & Plan See intentional drug overdose discussion. Nondependent alcohol abuse Assessment & Plan See intentional drug overdose discussion. Current Hospital Medications: enoxaparin, 40 mg, subcutaneous, Daily insulin lispro, 1-5 Units, subcutaneous, 3x daily with meals insulin lispro, 1-5 Units, subcutaneous, Nightly sodium chloride, 2.5-10 mL, intravenous, See admin instructions And sodium chloride, 2.5-10 mL, intravenous, q12h ASHLEY Continuous: lactated Ringer's (LR), , Last Rate: 150 mL/hr at 06/22/24 1756 PRN: PRN medications: acetaminophen, dextrose OR dextrose OR dextrose OR glucagon GLOBAL PLAN OF CARE: FLUIDS AND NUTRITION FLUIDS: Current Fluids/Electrolytes/TPN Stop lactated Ringer's (LR) premix infusion intravenous, Continuous 06/23/24 175 NUTRITION: Diet, Adult Suicide Risk Safety Tray with counting utensils; Full participation; Regular VTE PROPHYLAXIS Pharmacologic Prophylaxis: Lovenox Mechanical Prophylaxis: none ADVANCED CARE PLANNING Code Status: Full Code Medical Decision Maker: I have discussed the plan of care with: Patient and Inter-professional team. Med Reconciliation Status: Medication Reconciliation Status: COMPLETE: Medication reconciliation iscomplete in full using one or more reliable source(s). I have reviewed, updated, and verified this note's content. I spent a total of 95 minutes on the date of encounter, which included: ?? Preparing to see the patient (e.g., review of test results) ?? Obtaining and/or reviewing separately obtained history ?? Performing a medically appropriate exam and/or evaluation ?? Counseling and educating the patient/family/caregiver ?? Ordering medications, tests, procedures ?? Referring and communicating with other healthcare professionals, when not separately reported ?? Documenting clinical information in the health record ?? Independently interpreting results (not separately reported) and communicating results to the patient/family/caregiver ?? Care coordination not separately reported Signature: Alex Hines MD Electronic Signature -Plan of care discussed with Patient and Inter-professional team. Alex Hines MD [facility] Medicine 06/23/2024 documented in this encounter Consult Notes * Dara Anderson MD - 06/25/2024 4:51 PM EST ADDICTION PSYCHIATRY FOLLOW UP NOTE Diagnosis: Patient Active Problem List Diagnosis Tobacco use disorder Obesity Nondependent alcohol abuse Cocaine use disorder (HCC) Opioid use disorder Frostbite of both feet T2DM (type 2 diabetes mellitus) ([facility]) AVRIL (obstructive sleep apnea) Cardiomegaly Suicidal ideation Intentional drug overdose ([facility]) Record Review: Yes Subjective Patient was seen today to follow-up on his request to be on Suboxone MAT for opioid use disorder He is followed by psychiatry CL and plan for psychiatric admission Patient tells me that he uses heroin/fentanyl injecting IV drug use daily and last use was prior toadmission. He said he also occasionally smokes crack cocaine with his heroin. He feels that Suboxone had helped him in the past however he does not remember when he was on it and the dose. He would like to be restarted on it and connected to a clinic. Interview was limited given the interview you sitting in [facility] in the ED and the fact that the patient was a poor historian in general. He reported active auditory visual hallucinations with some command nature but he did not elaborate on that. Current Facility-Administered Medications: acetaminophen (TYLENOL) tablet 650 mg, 650 mg, oral, q6h PRN, Alex Hines MD, 650 mg at 06/24/24 0619 benztropine (COGENTIN) tablet 0.5 mg, 0.5 mg, oral, 2x daily, Zuleyma Maldonado MD, 0.5 mg at 06/25/24 0846 dextrose (GLUTOSE) gel 15 g, 15 g, oral, q15min PRN OR dextrose (D50W) IV injection 12.5 g, 12.5 g, intravenous, q15min PRN OR dextrose (D50W) IV injection 25 g, 25 g, intravenous, q15min PRNOR glucagon (GLUCAGEN) injection 1 mg, 1 mg, subcutaneous, q15min PRN, Alex Hines MD enoxaparin (LOVENOX) subcutaneous injection 40 mg, 40 mg, subcutaneous, Daily, Alex Hines MD, 40 mg at 06/24/24 1622 folic acid (FOLVITE) tablet 1 mg, 1 mg, oral, Daily, Quintin Ng MD, 1 mg at 06/25/24 0845 haloperidoL (HALDOL) tablet 5 mg, 5 mg, oral, q12h ASHLEY, Quintin Ng MD, 5 mg at 06/25/24 0623 ibuprofen (MOTRIN) tablet 600 mg, 600 mg, oral, q6h, Elton Church NP, 600 mg at 06/25/24 1303 insulin glargine-yfgn (SEMGLEE - 100 units/mL) injection 5 Units, 5 Units, subcutaneous, Daily withbreakfast, Quintin Ng MD, 5 Units at 06/25/24 0846 insulin lispro (ADMELOG/HumaLOG - 100 units/mL) injection 2-10 Units, 2-10 Units, subcutaneous, 3x daily with meals, Quintin Ng MD, 6 Units at 06/25/24 0846 IV Peripheral Line Care, , , Until discontinued AND sodium chloride 0.9% flush 2.5-10 mL, 2.5-10 mL, intravenous, See admin instructions AND sodium chloride 0.9% flush 2.5-10 mL, 2.5-10 mL, intravenous, q12h ASHLEY, Alex Hines MD, 10 mL at 06/25/24 0900 [COMPLETED] thiamine (VITAMIN B1) 500 mg in 0.9% NaCl 100 mL IVPB premix, 500 mg, intravenous, q8h ASHLEY, Stopped at 06/25/24 0700 FOLLOWED BY thiamine (VITAMIN B1) 250 mg in 0.9% NaCl 102.5 mL IVPB, 250 mg, intravenous, q24h ASHLEY FOLLOWED BY [START ON 06/30/2024] thiamine mononitrate (VITAMIN B1) tablet 100 mg, 100 mg, oral, Daily, Quintin Ng MD Current Outpatient Medications: acetaminophen (TYLENOL) 325 mg tablet, Take 2 tablets (650 mg total) by mouth every 6 hours as needed for headache, pain or fever., Disp: 30 tablet, Rfl: 0 benztropine (COGENTIN) 0.5 mg tablet, Take 1 tablet (0.5 mg total) by mouth 2 times a day., Disp: 30 tablet, Rfl: 0 [START ON 06/26/2024] folic acid (FOLVITE) 1 mg tablet, Take 1 tablet (1 mg total) by mouth once a day for 1 dose., Disp: 1 tablet, Rfl: 0 haloperidoL (HALDOL) 10 mg tablet, Take 10 mg by mouth 2 times a day., Disp: , Rfl: ibuprofen (MOTRIN) 600 mg tablet, Take 1 tablet (600 mg total) by mouth every 6 hours for 7 doses.,Disp: 7 tablet, Rfl: 0 metFORMIN (GLUCOPHAGE) 1,000 mg tablet, Take 1,000 mg by mouth 2 times a day with meals., Disp: , Rfl: thiamine HCl (VITAMIN B1) 100 mg tablet, Take 1 tablet (100 mg total) by mouth once a day., Disp: 30 tablet, Rfl: 0 Vital signs in last 24 hours: Temp: [36.9 ??C (98.4 ??F)-37 ??C (98.6 ??F)] 37 ??C (98.6 ??F) Heart Rate: [70-81] 72 Resp: [16-18] 16 BP: (120-145)/(72-78) 133/78 SpO2: [97 %-100 %] 97 % Lab Results Component Value Date ALT 142 (H) 06/22/2024 AST 314 (H) 06/22/2024 ALKPHOS 60 06/22/2024 BILITOT 0.5 06/22/2024 Lab Results Component Value Date GLUCOSE 210 (H) 06/25/2024 CALCIUM 9.2 06/25/2024 NA 140 06/25/2024 K 4.1 06/25/2024 CO2 26 06/25/2024 CL 103 06/25/2024 BUN 11 06/25/2024 CREATININE 0.97 06/25/2024 Lab Results Component Value Date WBC 6.9 06/25/2024 HGB 10.1 (L) 06/25/2024 HCT 31.7 (L) 06/25/2024 MCV 77.9 (L) 06/25/2024 PLT 185 06/25/2024 Mental Status Evaluation: Appearance: Wearing casual close lying in hospital bed Behavior: Guarded but calm and cooperative in general Speech: Normal Mood: Euthymic Affect: Mood congruent Thought Process: Linear and goal-directed Thought Content: Appears at times to be responding to internal stimuli and reported auditory hallucinations Sensorium: Clear Cognition: Normal Insight: Poor to fair Judgment: Poor to fair ASSESSMENT AND RECOMMENDATIONS: - MAT for opioid use disorder: You may start Suboxone 2 mg sublingual twice a day for relapse prevention and cravings - We will help connect this patient with Suboxone clinic for when he discharges from inpatient psych unit - Referral to inpatient psych unit as per psychiatry CL team Addiction psychiatry will continue to follow with you please let us know if you have any questions. Dara Pink MD Room Clerk, Addiction Consultation Services [facility] * Marisol Xiong, [facility] - 06/23/2024 12:45 PM ESTAssociated Order(s): IP CONSULT TO ADDICTION PSYCHIATRY Addiction Social Work Consult Identifying Data: Celso Blanton, a 39 y.o. male , two children Housing instability Limited supports From [facility] Not employed History of Present Illness/Problem: In brief, Celso Blanton is a 39 y.o. male with a PMHx of smoking, obesity, polysubstance use disorder (alcohol, cocaine, opioids), who presented to [facility] ED on 06/22/2024 after being found down. Patient had recently used alcohol, crack cocaine, and fentanyl, wasfound down with unknown downtime. Upon interview with primary team, patient reported that his most recent consumption of alcohol, cocaine and fentanyl, which led him to ED,was an intentional overdosein an attempt to kill himself. Placed on Section 12 for psych consult. Addiction psychiatry consulted to discuss MAT for substance use. Tox screen positive for cocaine. Ethanol level <10 Patient is requesting to initiate suboxone. He complains of current withdrawal symptoms including cramping, headache, chills, light sensitivity. History: Past Psychiatric History: per chart review, hx schizophrenia (seen at [facility] in February with diagnosis of paranoid schizophrenia) Not linked to outpatient psych Hx haldol, seroquel, cogentin Per chart review, hx suicidal ideation Patient reports hx of 5-6 suicide attempts, does not specify details Addiction History: opioid use, daily. 8-ball a day , IVDU Cocaine-does not quantify Hx alcohol, denies recent use Reports hx of prior substance use recovery admits. History of Medication Assisted Treatments (MAT): Hx suboxone from a friend. Denies prior connectionto clinic. Current Evaluation: MENTAL STATUS EXAM: Appearance: age appropriate and disheveled Behavior: cooperative and withdrawn Eye Contact: average Motor Activity/Movement: WNL Speech: normal pitch and normal volume Mood: depressed Affect: mood-congruent Thought Process: linear Thought Content: unremarkable Suicidality: ideation Homicidality/Assaultiveness: none Sensorium: orientation to , person, place, and time/date Cognition: Not formally tested Insight: fair Judgment: fair USAUDIT-C Questionnaire How often do you have a drink containing alcohol?: 1-->Less than monthly How many drinks containing alcohol do you have on a typical day you are drinking?: 1-->2 drinks How often do you have X (5 for men; 4 for women & men over age 65) or more drinks on one occasion?: 1-->Less than monthly USAudit-C Score: 3 Drug Abuse Screening Test (DAST-10) Have you used drugs other than those required for medical reasons?: Yes Do you use more than one drug at a time?: Yes Are you always able to stop using drugs when you want to?: No Have you had blackouts or flashbacks as a result of drug use?: No Do you ever feel bad or guilty about your drug use?: Yes Does your spouse (or parents) ever complain about your involvement with drugs?: Yes Have you ever neglected your family or missed work because of your use of drugs?: Yes Have you engaged in illegal activities in order to obtain drugs?: No Have you ever experienced withdrawal symptoms as a result of heavy drug intake?: Yes Have you had medical problems as a result of your drug use (e.g., memory loss, hepatitis, convulsions, bleeding, etc.)?: Yes DAST-10 Score: (!) 8 Diagnosis: -opioid use disorder, severe -cocaine use disorder, severe -hx alcohol use disorder Recommendations: -Patient is requesting suboxone for opioid use and withdrawal symptoms. Discussed with addiction psychiatrist who provided recs to primary team-start COWS, when patient starts scoring on COWS [id number] w/d, can start suboxone 2 mg SL 3 times a day. Patient is pending inpatient psychiatric admission under Section 12. Would recommend dual dx treatment with step-down to substance use recovery supports and/or program. -Recommend engagement with coach during [facility] stay, along with follow- up engagement post discharge as needed/appropriate (create relapse prevention plan, identify strengths, identify supports; motivational enhancement to encourage hope and change, promote recovery, and provide encouragement). Time spent with the patient: 35 min GEETA Jaramillo Addiction Psychiatry Consultation Services [facility] (call or text) * Brayan Washburn MD - 06/23/2024 10:49 AM ESTAssociated Order(s): IP CONSULT TO PSYCHIATRY Consultation Psychiatry Initial Evaluation Reason for Consult: Section 12 Consulting Provider: Dr. Hines Consulting Service: Internal medicine Sources of info: Primary team, medical records, patient's family, patient Identifying Data: Celso Blanton, a 39 y.o. male Chief Complaint: I felt to the floor History of Present Illness/Problem: Celso Blanton is a 39 y.o. male with a PMHx of smoking and past psychiatric history of esquizofrenia (self reported) and polysubstance use disorder (alcohol, crack, cocaine, opioids), who presented to [facility] ED on 06/22/2024 after being found down. Psych being consulted due to suicidal ideation. From what is available in his chart patient was brought to the ED by EMS on 06/21 morning after being found down near to his f[facility]. He was down for unknown amount of time and per patient probably for many hours. Here he was found to be very lethargic, confused and to be hypothermic and having bilateral feet frostbite. He was evaluated by plastic surgery who recommended daily dressing changes for the frostbite. Labs included WBC 10.9, Hgb 11.5, PLT 186, NA 138, K4.7, CO2 16, AG 25, glucose 235, creatinine 1.30, AST 314, ALT 142, T. bili normal, ALP normal, lipase 27, ethanol level <10, lactate 2.7 then 1.6, CK 17,563 (down trending since IV fluids were initiated), mini RVP negative, EKG showed NSR rate 86 no ischemic changes, CXR unremarkable, CT head without contrast unremarkable, CTC-spine without. When Internal medicine evaluated patient again for admission patient was more awake. He endorsed using IV drugs including Fentanyl, as well as alcohol and cocaine recently (06/21 last use). He endorsed that his last cocaine and fentanyl use was a suicidal attempt. This was in the setting of Suicidal thought s over the previous 2 days. He was previously in a drug rehab program before being discharged to [facility], more recently he is homeless and unable to obtain his psychiatric medications I saw the patient two times today. He was quite sleepy but woke up to voice. He told us that he hasa long standing diagnosis off esquizophrenia. His main symptom of it is hearing comanding voices that usually tells him to kill himself. He has been hearing this voice recently over the past months. He also mentions that he was prescribed haldol and Seroquel but he is inconsistent about weather he is taking these meds or not. He doesn't have a psychiatrist currently. He mentions that he has a long time problem with alcohol, IV opioids, crack and cocaine). He reports that he was on a drug rehab recently (was hospitalized 3 months ago and recently discharged). [facility]. He endorses that the day he had the fall he was using crack and alcohol. He states that after falling to the floor he was unable to stand because his legs were painful. He denies that this was a suicidal attempt. He denies any recent suicidal attempts but reports that 2years ago he had one al thought he is not clear about how it happened. He states that he is and he has 2 kids but dont have contact with them. The lack of contact with his family and the fact that he is homeless are the current social stressors. He reports that his mood might be depressivebut this has been a long standing issue. He first denied anhedonia, lack of appetite or problems sleeping but later reported it to us. Psychiatric review of systems: Depression: inconsistently reporting low mood, and anedonia. Denies problems of appetite or sleep. Rosi: Denies/Symptoms consistent with distractibility, elated mood, decreased need for sleep, grandiosity, goal-directed and/or risky behaviors, talkative, flight of ideas Anxiety: Denies/Symptoms consistent with difficulty concentrating, on edge, irritable, tense, worries, racing thoughts, panic attacks Psychosis: He reported auditory halluciantions and some visual hallucinations (seen children) PTSD: Not addressed today. History: Home Psychiatric Medications: Haldol and Seroquel Past Psychiatric History Psychiatric diagnosis: Schizophrenia Previous psychiatric hospitalizations reports substance rehab hospitalization three months ago. Guardianship/Adrian's: none History of violence: Unclear Suicidal History: reports suicidal attempt 2 years ago, unclear the circumstances. Access to firearms: unclear. Mental Health Provider History: Medications last prescribed by [facility] (CLE[employer]ICE BROKER: Kodak Lopez) Psychiatrist: no Therapist:no Previous psychiatric treatment and medication trials: Haldol, seroquel and congentin. Substance Use History: First use, mode of use, frequency, last used, date, quantify, $ spent, longest sobriety, how sobriety was maintained, Withdrawal, Seizure/DT/Hospitalized, Cravings, legal issues due to substance use Primary Substance: Secondary Substance: Tertiary Substance: Tobacco - yes Alcohol - yes few shots a day Marijuana - unclear Opioid - IV use, current Cocaine - recent Crack - current use Stimulant - no Benzodiazepines - no Steroids - no Caffeine - unclear Hallucinogens - no Prescribed medications - no Past Substance Use Treatment (Detox, IOP, Outpatient treatment, AA/NA): substance use rehab three months ago, unclear which facility. Has used crack and alcohol again since. Experience with Medication Assisted Treatment: not currently. No existing history information found. Social History Tobacco Use Smoking Status Not on file Smokeless Tobacco Not on file Social History Substance and Sexual Activity Alcohol Use Not on file Past Medical History/Past Surgical History: No past medical history on file. PCP: PATIENT, HAS NO PCP OR REF Additional Medical Problems: Diabetes Rhabdomyolysis Surgeries: has no past surgical history on file. Allergies: Codeine Social History: Comes from [place], [place], for many years. Have two kids but have not contact with them. 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 Denies to have any friends or family members looking after him. Unable to obtain. Legal History: None Trauma History: Childhood: Not addressed today Adulthood: Not addressed today Goals/Coping Skills: States that when he leaves the hospital he will go to a fci. Family History: Denies family history of psych. No family history on file. Medical Review Of Systems: Reports tremors, denies headaches. Reports some leg pain at the place of the frostbite. Current Evaluation: Vital signs in last 24 hours: Vitals: 06/23/24 1226 BP: 111/64 Pulse: 89 Resp: 16 Temp: SpO2: 100% PHYSICAL EXAM HEAD: Normocephalic, atraumatic. No plethora EYES: Pupils equal, round and extra ocular movements are intact. No exophthalmosis. EARS: External inspection of the ears and nose showed no scars, lesions CARDIOVASCULAR: Deferred PULMONARY: Breathing comfortably on room air. ABDOMEN: Deferred EXTREMITIES: wrapped due to frostbite Has some mild edema in the right hand. NEUROLOGIC EXAM: COGNITION: he is lethargic, needs repeated voice stimulation to wake up. Concentration is impaired,oriented to time (not able to get the day right). He is oriented to place but he is not completely clear about why he is here. He is able to follow basic two-step commands. CRANIAL NERVES: Pupils equal round, no ptosis, extraocular movements intact, no facial asymmetry, symmetric shoulder shrug. MOTOR: Normal bulk. Tone is normal. Moving all extremities spontaneously. There is no tremor. GAIT: Not performed today REFLEXES: Deferred SENSORY: Deferred COORDINATION: Normal [id number] normal in bilateral upper extremities Clock draw: MENTAL STATUS EXAM: Appearance: age appropriate, disheveled, and tattooed Behavior: distracted and withdrawn Eye Contact: avoidant Motor Activity/Movement: normal without obvious tics, tremors, abnormal movements Speech: slow, slurred, and soft Mood: normal Affect: flat Thought Process: concrete Thought Content: normal without s/sx consistent with delusions, hallucinations, paranoia, not responding to internal stimuli. Suicidality: none and denied recent suicidal attempts Homicidality/Assaultiveness: none Sensorium: orientation to , person, place, time/date, and not oriented to situation completely Cognition: grossly intact Insight: age appropriate and fair significant for appreciating psychiatric diagnosis, symptomology,medications, treatment history, level of dysfunction, ongoing treatment recommendations. Judgment: age appropriate and fair significant for maintaining safety, adhering to medications, participating in evaluation, safety planning. LAB: \ 9.6 / 7.2 ------ 161 / 29.6 \ 138 I 102 I 21 - - - - - - - - - - -< 259 4.4 I 26 I 1.06 Ca: 8.8 M.2 Phos: 1.7 TSH: 0.337 A1c: B12: Folate: 15.0 CBC: 06/23/2024 BMP: 06/23/2024 Chem: 06/23/2024 Alb: 4.5 Pr: 8.1 tBili: 0.5 cBili: ALP: 60 ALT: 314 AST: 142 LFTs: 06/22/2024 IMAGING/OTHER STUDIES: X-Ray Hand Left 3+ Views Result Date: 06/22/2024 No acute fracture or dislocation. Alignment and joint spaces are maintained. Soft tissues are within normal limits. If this radiology report contains a blank impression section, it is an incomplete radiology report. Please contact the interpreting radiologist or applicable radiology division as soon as possible to obtain the completed interpretation. Workstation ID: [id number] CT C-Spine WO Contrast Result Date: 06/22/2024 No acute fracture or traumatic malalignment of the cervical spine. If this radiology report contains a blank impression section, it is an incomplete radiology report. Please contact the interpreting radiologist or applicable radiology division as soon as possible to obtain the completed interpretation. Workstation ID: [id number] Up-to-date CT equipment and radiation dose reduction techniques wereemployed. CTDIvol: 26.2 - 70.4 mGy. DLP: 2128 mGy-cm. The following accession numbers are related to this dose report [id number]: [id number] CT Head WO Contrast Result Date: 06/22/2024 No acute intracranial hemorrhage, large territorial infarction, or mass effect. If this radiology report contains a blank impression section, it is an incomplete radiology report. Please contact the interpreting radiologist or applicable radiology division as soon as possible to obtain the completed interpretation. Workstation ID: [id number] Up-to-date CT equipment and radiation dose reduction techniques were employed. CTDIvol: 26.2 - 70.4 mGy. DLP: 2128 mGy-cm. The following accession numbers are related to this dose report [id number]: [id number] XR Chest Portable 1 View Result Date: 06/22/2024 No acute pulmonary process or acute displaced fracture. If this radiology report contains a blank impression section, it is an incomplete radiology report. Please contact the interpreting radiologistor applicable radiology division as soon as possible to obtain the completed interpretation. Workstation ID: [id number] Assessment - Diagnosis - Goals: Suicide Risk Factors: Previous suicidal attempt, active mandatory auditory hallucinations, active polysubstance use. Suicide Protective Factors: Motivated for treatment. Formulation: Celso Blanton is a 39 y.o. male with a PMHx of smoking and past psychiatric history of schizophrenia (self reported) and polysubstance use disorder (alcohol, crack, cocaine, opioids), who presented to [facility] ED on 06/22/2024 after being found down outside of his fci for an unknown amount of time. Psych being consulted due to suicidal ideation. Patient is inconsistent with his ansewrs changingit from provider to provider but aparently he has been experiencing mandatory auditory hallucinations telling thim to kill himself. He denied to us that he he has recently attempted suicide or he hasactive suicidal ideation but he did report to another provider at the day of admission that he had overdose attempt couple days ago. He also reports being actively using at least crack and alcohol and he seems unable to take care of himself since he was found down outside of his house for many hours causing him to suffer frostbite as well as significant hypothermia. He also lacks family or friends support and has significant social stressors going on. We do not have previous psychiatric documentation but it is very possible that he does have schizophrenia from the symptoms that he is endorsing now. Apparently he was being treated in the clinic in [facility] but the last prescription is from February and he has apparently since last follow-up. I tried to contact the clinic but I was unable. They may call me back over the next days. Preliminary Diagnosis: -Schizophrenia -Polysubstance use -Delirium Overall our assessment is that patient probably has schizophrenia if active auditory hallucinations. He does meet parents here for section 12 due to his risks of suicide attempt for self and inability to take care of himself. He seems somehow in acceptance of treatment and talking with addiction psych. They should also monitor him for development of alcohol withdrawal since he reports drinking recently. Recommendations: Patient may criteria for section 12 Please start Haldol 5 mg 2 times a day standing Please start Cogentin 0.5 mg once a day. Please obtain U tox, B12, folate, TSH. Consider checking patient for CIWA over the next 24 hours to make sure he does not develop alcohol withdrawal. Please consult addiction psych. Will continue to try to contact outside psych who once saw him. The patient was discussed with attending Dr. Wolf who agrees with the above assessment and recommendations. We coordinated the patient's care plan/recommendations with Attending and primary team. I have reviewed, updated, and verified this note's content. No external release of medical record, including behavioral health notes, via [employer] (or [employer]) unless additional patient authorization is obtained at Point of Care. Brayan Washburn MD PGY 4 - Neurology resident Pager: [phone] Portions of this note were done using voice recognition software. Please excuse any spelling, punctuation or grammatical inadvertent errors. Electronic Signature Cosigned by Kemar Wolf MD at 06/29/2024 11:56 AM EST Associated attestation - Kemar Wolf MD - 06/29/2024 11:56 AM EST I saw and evaluated the patient. Case discussed with the resident/fellow and I agree with the findings and plan as documented in the resident's/fellow's note. 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 Unknown down time. Here in ED, hypothermic upon arrival. Complaining of B/L hand pain and headache. Otherwise somnolent and remains sleeping primarily. Patient History No past medical history on file. No past surgical history on file. No family history on file. Sexuality and Gender Identity Sexuality Legal Information Legal first name: Celso Legal last name: Harvinder Legal sex: Male Gender Identity Organ Inventory Organs the patient currently has: Organs present at or expected at to develop: Organs surgically enhanced or constructed: Organs hormonally enhanced or developed: breasts cervix ovaries uterus vagina penis prostate testes Review of Systems REVIEW OF SYSTEMS: As per HPI. Physical Exam Physical Exam ED Triage Vitals [06/22/24 0759] Temp Heart Rate Resp BP SpO2 (!) 35.1 ??C (95.1 ??F) 88 17 (!) 147/98 -- Temp Source Heart Rate Source Patient Position BP Location Set FiO2 (O2%) Rectal Monitor Lying Right arm -- Physical Exam Vitals and nursing note reviewed. Constitutional: Comments: Primary sleeping and minimally responsive, opens eyes and answers some questions to voiceas well as painful stimuli. HENT: Right Ear: External ear normal. Left Ear: External ear normal. Nose: Nose normal. Mouth/Throat: Mouth: Mucous membranes are dry. Eyes: Extraocular Movements: Extraocular movements intact. Pupils: Pupils are equal, round, and reactive to light. Neck: Comments: C-collar in place, unable to accurately assess C-spine tenderness given patient's mental status. Cardiovascular: Rate and Rhythm: Normal rate and regular rhythm. Pulses: Normal pulses. Heart sounds: Normal heart sounds. Pulmonary: Effort: Pulmonary effort is normal. No respiratory distress. Breath sounds: Normal breath sounds. Abdominal: General: Abdomen is flat. There is no distension. Palpations: Abdomen is soft. Tenderness: There is no abdominal tenderness. Musculoskeletal: Right lower leg: No edema. Left lower leg: No edema. Comments: Small abrasion to dorsal aspect of left hand with mild swelling. Skin: General: Skin is dry. Comments: Skin cool and dry. B/L toes with dusky blue appearance, cold to the touch. Neurological: Comments: Minimally responsive, alert and oriented x 1 to name. Unable to assess remainder of neurologic exam given patient's mental status. Medical Decision Making and ED Course MDM Patient is a 39-year-old male with past medical history of alcohol use disorder, crack cocaine use presenting to the emergency department after being found down after using fentanyl, cocaine, alcoholprior to arrival. Unknown downtime. Upon arrival to the ED, hypothermic to 95.1F. Remainder of vital signs within normal limits. Complaining of bilateral hand pain and headache. Otherwise somnolent and remains sleeping primarily. Patient however protecting his own airway and does open his eyes and answer some questions to voice and painful stimuli. Physical exam with small abrasions to dorsal aspect of left hand with mild swelling. Also bilateral toes with dusky blue appearance, cold to the touch. Given history and presentation, concern for altered mental status secondary to alcohol and substa nce use with associated hypothermia from cold exposure. Given B/L feet appearance, also concern forfrostbite. Must also consider acute intracranial or cervical spine abnormality, dehydration/electrolyte abnormalities, infectious etiology such as pneumonia or viral URI, rhabdomyolysis given unknowndowntime. Plan for EKG, CBC, CMP, lactate, ethanol level, lipase, COVID/flu/RSV swab, CK, chest x-ray, and CT head and C-spine. Will rewarm B/L feet using warm water. Please see ED course below for further updates, details, and plan. ED Course as of 06/22/24 1740 Sun Jun 22, 2024 0912 Chest x-ray without any acute cardiopulmonary process. CBC with mild leukocytosis 10.9, hemoglobin 11.5. CMP with bicarb 16, elevated anion gap 25, BUN 50, AST/ALT 314/142. Elevated lactate 2.7.CK 17,563. Ordered for IVF bolus x2, will start maintenance IVF following. [RS] 1024 Patient off cele hugger. [RS] 1319 CT head and C-spine negative. Patient re-evaluated for cervical spine precautions. Cervical collar in place. CT of the cervical spine showed no evidence of fracture. On exam, patient denied any bony tenderness of the cervical spine on palpation. Patient had pain free ROM to 30 degrees in extens ion as well as flexion, 45 degrees in right and left rotation. Collar removed, no further need for cervical spine precautions. [RS] 1320 COVID/flu/RSV swab negative. Patient ordered for tetanus given potential frostbite. Lactate cleared to 1.6. Will obtain repeat EKG. Reassessed toes, appear improved however will repeat warm fluid bags. Also reevaluated patient's left hand now that he is more awake, reporting tenderness. Will obtain x-ray. Plan for admission following x-ray. [RS] 1356 EKG interpreted by me in the absence of a welfare visitor. Rhythm is normal sinus. Rate of 86. Noacute ischemic changes. No previous EKG on file. [RS] 1412 Left hand x-ray negative. Will admit to medicine. [RS] 1537 Spoke with medicine. Requesting repeat BMP and CK, plastics consult for frostbite. Consulted and discussed with plastics, will evaluate patient. Repeat BMP and CK pending. [RS] 1609 Repeat BMP with improvement, anion gap improved to 19 and BUN improved to 37 and bicarb improved to 18. CK improved to 12,274. Patient now admitted to medicine. [RS] ED Course User Index [RS] MD Celso Manzanares : 1985 CSN: [id number] Quintin Waldrop MD Resident 06/22/24 1741 Cosigned by Sofía Hardy MD at 06/27/2024 8:21 PM EST Associated attestation - Sofía Hardy MD - 06/27/2024 8:21 PM EST Attending to Resident/Fellow - I saw and evaluated the patient. I discussed the case with the resident(s)/fellow(s) and agree with the findings and plan as documented by the resident(s)/fellow(s). Collins elements, clarifications and/or exceptions are noted by me. Celso Blanton : 1985 CSN: [id number] documented in this encounter Miscellaneous Notes * Plan of Care - Brent Lomas LCSW - 06/25/2024 1:59 PM EST Celso has been accepted to [facility] for inpatient level of care. He will transfer via section 12. * CWOCN - OLI CortesN - 06/25/2024 1:00 PM EST WOUND OSTOMY CONTINENCE RN NOTE CWOCN consulted, chart reviewed and patient assessed as noted. Summary: Consulted for assessment of foot wounds. In reviewing the patient's EMR he has been evaluated by Plastic Surgery for frostbite with wound care recommendations in place. At this time Wound Care Team will defer evaluation/treatment/recs to their service. Marika Hernandez RN CWOCN CN NAME: Celso Blanton : 1985 CSN: [id number] * Plan of Care - Nellie Del Valle - 06/25/2024 10:10 AM EST RC Note: This RC met with pt in the ED to introduce myself and explore his interest in recovery support. Pt shared that the OD which led to this admission was intentional and not the first time he has tried. Pt shared that he is from the [place] area and that he has been homeless for [id number] yrs. Pt states that his longest period of total abstinence from substances was 6 mos which he achiever approx 20 yrs ago while participating in a tx program. Pt's participation in the exchange with this RC was minimal however when asked, he clearly stated that he desires to be in recovery. Pt was uninterested in any further meaningful conversation with this RC at that time, but did endorse inte rest in receiving a folder of recovery resources from this RC which I will provide to him this afternoon. Pt was provided with this RC's contact info and strongly encouraged to reach out should he desire support of further resources. Nellie Del Valle, [facility] [phone] * Plan of Care - Brent Lomas LCSW - 06/25/2024 8:55 AM EST Images from the original note were not included. Psychiatric Bed Placement Team Note: This psychiatric postbed stitcher is currently working on locating an inpatient psychiatric bed for this patient, Celso Blanton [id number] . This patient has been deemed medically stable for discharge to a psychiatric unit by the medical team. Notable medical conditions for the accepting facility to note: Referrals have been sent to the following inpatient psychiatric units: Routing History Date/Time From To Method 06/25/2024 8:55 AM Brent Lomas, [facility] Fax 06/25/2024 8:55 AM Brent Lomas, [facility] Fax 06/25/2024 8:55 AM Brent Lomas, [facility] [place] Fax 06/25/2024 8:55 AM Brent Lomas, [facility] medicine Fax . There are currently are no bed offers If there are any changes to patients medical stability please alert this psychiatric postbed stitcher. Will continue to follow for psychiatric bed placement. * Plan of Care - Brent Lomas LCSW - 06/25/2024 8:10 AM EST Copied and revised for psych placement only. Celso Blanton #[id number] (CSN:[id number]) (:1985 39 y.o. M) (Adm: 06/22/24) [facility] [id number] A Preferred Name Legal Name if different Gender Identity Legal Sex M Pronouns Sex Assigned at Patient Demographics Address [address] [address] (Home) *Preferred* Soldier Status No [2] History : No Patient Ethnic Group & Race Race Black or Ethnic Group Not or Patient Ethnicity [5] Active Insurance as of 06/22/2024 Primary Coverage Payor Plan Insurance Group Employer/Plan Group [facility] MEDICAID [facility] [id number] Payor Address Payor Phone Number Payor Fax Number Effective Dates [address] 08/19/2022 - None Entered [facility] [id number] Subscriber Name Subscriber Date Member ID CELSO BLANTON 1985 [id number] PCP and Center Primary Care Provider Has No Pcp Or Ref Patient [facility] Emergency Contacts None on File Other Contacts None on File * Assessment & Plan Note - Zuleyma Maldonado MD - 06/24/2024 3:54 PM ESTAssociated Problem(s): T2DM (type 2 diabetes mellitus) ([facility]) History of T2DM, managed with metformin 1000 mg p.o. twice daily, though patient has not been able to fill medications recently. At time of admission, glucose was in the 200s. Diabetic diet C/w Lantus 5 units nightly C/w medium dose insulin sliding scale HOLD metformin -Follow-up hemoglobin A1c -Continue LDISS ACHS -HOLDING home metformin 1000 mg p.o. twice daily * Assessment & Plan Note - Zuleyma Maldonado MD - 06/24/2024 3:54 PM ESTAssociated Problem(s): AVRIL (obstructive sleep apnea) History of AVRIL, not on CPAP. * Assessment & Plan Note - Zulemya Maldonado MD - 06/24/2024 3:54 PM ESTAssociated Problem(s): Suicidal ideation See intentional drug overdose discussion. * Assessment & Plan Note - Zuleyma Maldonado MD - 06/24/2024 3:54 PM ESTAssociated Problem(s): Rhabdomyolysis (Resolved 06/25/2024) Pt presented on 06/22 after being found down outside after an intentional overdose with alcohol, crack cocaine and fentanyl. Found to be hypothermic on presentation. Unknown downtime. Labs significant for significant elevated CK to 17,563 on admission. Imaging negative. Started on IV fluid resuscitation which was continued. CK is downtrending Trend renal function daily Hold further IV fluids - is able to keep up with PO intake Continue regular diet * Assessment & Plan Note - Zuleyma Maldonado MD - 06/24/2024 3:54 PM ESTAssociated Problem(s): Frostbite of both feet This admission, in the ED patient was hypothermic to 90 5.1F with exam noting bilateral toes were dusky. Plastic surgery was consulted for concern of bilateral foot frostbite, recommended no acute surgical intervention, gentle rewarming. He was placed on Cele hugger and quickly achieved normothermia. Noted to have blisters on bilateral feet, with no signs of active infection. -Plastic team evaluated the wound, plan for plastic surgery reevaluation on 06/25 versus 06/26 -Continue fluffs between toes and loose Kerlix wraps -box truck driver consulted * Assessment & Plan Note - Zuleyma Maldonado MD - 06/24/2024 3:54 PM ESTAssociated Problem(s): Fever (Resolved 06/25/2024) Initially hypothermic secondary to exposure. Later febrile with a Tmax of 101.3. Mild leukocytosis to 10.9 on admission down trended quickly. CXR unremarkable, CT head without contrast unremarkable, CT C-spine without contrast showed no acute fractures or malalignment, x-ray left hand unremarkable.Given Td vaccination. UA showed 3+ glucose 1+ ketones 2+ blood no WBCs no RBCs no bacteria. Antibiotics held and patient is now afebrile. -Follow-up blood cultures: No growth to date -Continue trending CBC daily Continue to hold antibiotics and monitor. * Assessment & Plan Note - Zuleyma Maldonado MD - 06/24/2024 3:54 PM ESTAssociated Problem(s): Opioid use disorder See intentional drug overdose discussion. History of polysubstance use disorder (alcohol, cocaine, opioids), last injection drug use 06/21/24. Patient was previously in a drug rehab program before being discharged to [facility], more recently he is homeless and unable to obtain his psychiatric medications. At time of admission, he was agreeable to meeting with addiction psychiatry. Stopped CIWA protocol- not scoring C/w folic acid supplementation High-dose thiamine: Thiamine 500 mg every 8 hours x 2 days then 250 mg IV daily followed by p.o. supplementation Follow-up toxicology screen -Addiction psychiatry consulted and following * Assessment & Plan Note - Zuleyma Maldonado MD - 06/24/2024 3:54 PM ESTAssociated Problem(s): Intentional drug overdose (HCC) History of polysubstance use disorder (alcohol, cocaine, opioids), who presented to [facility] ED on 06/22/2024 after being found down. Patient had recently used alcohol, crack cocaine, and fentanyl, was found down with unknown downtime. More awake after sobering up in the emergency room. He does states that he uses injection drugs, and intact he states that his most recent consumption of alcohol, cocaine and fentanyl was an intentional overdose in an attempt to kill himself, as he has been having suicidal thoughts over the last 2 days. Section 12 was signed on admission. Seen by psychiatry who recommended continuing section 12. Section 12: Continues to meet criteria at this time Continue constant observation with suicide precautions C/w Haldol 5 mg p.o. twice daily Incr Cogentin to 0.5 mg BID Appreciate psychiatry consultation Follow-up TSH, folic acid and B12 Follow-up toxicology screen Follow-up addiction medicine consultation * Assessment & Plan Note - Zuleyma Maldonado MD - 06/24/2024 3:54 PM ESTAssociated Problem(s): Nondependent alcohol abuse See intentional drug overdose discussion. * Assessment & Plan Note - Zuleyma Maldonado MD - 06/24/2024 3:54 PM ESTAssociated Problem(s): Cocaine use disorder (HCC) See intentional drug overdose discussion. * Assessment & Plan Note - Quintin Ng MD - 06/23/2024 2:36 PM ESTAssociated Problem(s): Frostbite of both feet This admission, in the ED patient was hypothermic to 90 5.1F with exam noting bilateral toes were dusky. Plastic surgery was consulted for concern of bilateral foot frostbite, recommended no acute surgical intervention, gentle rewarming. He was placed on Cele hugger and quickly achieved normothermia. Today: Blisters on bilateral feet. Are closed at this time. No signs of active infection. Plan -Plan for plastic surgery reevaluation on 06/25 versus 06/26 -Continue fluffs between toes and loose Kerlix wraps * Assessment & Plan Note - Quintin Ng MD - 06/23/2024 2:36 PM ESTAssociated Problem(s): Rhabdomyolysis (Resolved 06/25/2024) Presented on 06/22 after being found down outside after an intentional overdose with alcohol, crack cocaine and fentanyl. Found to be hypothermic on presentation. Unknown downtime. Labs significant forsignificant elevated CK to 17,563 on admission. Imaging negative. Started on IV fluid resuscitationwhich was continued. Today: Renal function remained stable. And CKs downtrending nicely. 7400 today down from 9500 yesterday. Plan Continue trending CK every 12 hours Trend renal function daily Continue IV fluids at current rates Continue regular diet * Assessment & Plan Note - Quintin Ng MD - 06/23/2024 2:36 PM ESTAssociated Problem(s): Fever (Resolved 06/25/2024) Initially hypothermic secondary to exposure. Later febrile with a Tmax of 101.3. Mild leukocytosis to 10.9 on admission down trended quickly. CXR unremarkable, CT head without contrast unremarkable, CT C-spine without contrast showed no acute fractures or malalignment, x-ray left hand unremarkable.Given Td vaccination. UA showed 3+ glucose 1+ ketones 2+ blood no WBCs no RBCs no bacteria. Antibiotics held and patient is now afebrile. Today: Remains afebrile. No indication for antibiotics at this time. Will continue to monitor. Plan -Follow-up blood cultures: No growth to date -Continue trending CBC daily Continue to hold antibiotics and monitor. * Assessment & Plan Note - Quintin Ng MD - 06/23/2024 2:36 PM ESTAssociated Problem(s): Suicidal ideation See intentional drug overdose discussion. * Assessment & Plan Note - Quintin Ng MD - 06/23/2024 2:36 PM ESTAssociated Problem(s): Intentional drug overdose (HCC) History of polysubstance use disorder (alcohol, cocaine, opioids), who presented to [facility] ED on 06/22/2024 after being found down. Patient had recently used alcohol, crack cocaine, and fentanyl, was found down with unknown downtime. More awake after sobering up in the emergency room. He does states that he uses injection drugs, and intact he states that his most recent consumption of alcohol, cocaine and fentanyl was an intentional overdose in an attempt to kill himself, as he has been having suicidal thoughts over the last 2 days. Section 12 was signed on admission. Seen by psychiatry who recommended continuing section 12. Today: Continue section 12 per psychiatry. Haldol and Cogentin started per their recommendations. Plan Section 12: Continues to meet criteria at this time Continue constant observation with suicide precautions RESTART Haldol 5 mg p.o. twice daily RESTART Cogentin 0.5 mg daily Appreciate psychiatry consultation Follow-up TSH, folic acid and B12 Follow-up toxicology screen Follow-up addiction medicine consultation * Assessment & Plan Note - Quintin Ng MD - 06/23/2024 2:36 PM EST Associated Problem(s): Opioid use disorder See intentional drug overdose discussion. History of polysubstance use disorder (alcohol, cocaine, opioids), last injection drug use 06/21/24. Patient was previously in a drug rehab program before being discharged to [facility], more recently he is homeless and unable to obtain his psychiatric medications. At time of admission, he was agreeable to meeting with addiction psychiatry. Plan Start CIWA protocol Add folic acid supplementation High-dose thiamine: Thiamine 500 mg every 8 hours x 2 days then 250 mg IV daily followed by p.o. supplementation Follow-up toxicology screen -Addiction psychiatry consulted, email sent. * Assessment & Plan Note - Quintin Ng MD - 06/23/2024 2:36 PM ESTAssociated Problem(s): Cocaine use disorder (HCC) See intentional drug overdose discussion. * Assessment & Plan Note - Quintin Ng MD - 06/23/2024 2:36 PM ESTAssociated Problem(s): Nondependent alcohol abuse See intentional drug overdose discussion. * Assessment & Plan Note - Quintin Ng MD - 06/23/2024 2:36 PM ESTAssociated Problem(s): AVRIL (obstructive sleep apnea) History of AVRIL, not on CPAP. * Assessment & Plan Note - Quintin Ng MD - 06/23/2024 2:36 PM ESTAssociated Problem(s): T2DM (type 2 diabetes mellitus) (HCC) History of T2DM, managed with metformin 1000 mg p.o. twice daily, though patient has not been able to fill medications recently. At time of admission, glucose was in the 200s. Today: Has been hyperglycemic. Will be increasing insulin as below. Plan START diabetic diet START Lantus 5 units nightly INCREASE to medium dose insulin sliding scale HOLD metformin -Follow-up hemoglobin A1c -Continue LDISS ACHS -HOLDING home metformin 1000 mg p.o. twice daily * Plan of Care - Marika Villafana RN - 06/23/2024 9:51 AM EST Case Management Admission Note: Pertinent Clinical impacting hospitalization. PA / Level of Care Change, if applicable: 39 y.o. male with smoking, obesity, polysubstance use disorder (alcohol, cocaine, opioids), presented to ED via EMS after being found down. hypothermic to 95.1F. CK 17,563 Patient Assessment: [facility] is [facility], [facility] in [facility]. On section 12 for SI statements. Waiting for [facility]. 1;1 obs for safety Supports, HCP, Designated Caregiver, Guardian: No contacts or HCP in chart. Initial Discharge Planning: ? TBD, psych eval pending. If clears Psych likely DC back to Group Home Choice list (with star ratings) provided / discussed, if indicated (Y or NA): NA * Consult to H&P - Darlyn Farfan MD - 06/22/2024 4:56 PM EST Consult Note Plastic & Reconstructive Surgery Consulting Attending: Emiliano Salcedo MD Requesting Provider: Attending Provider: Mack Cortez MD [phone] Date Requested: 06/22/24 Subjective Chief Complaint: BL feet frostbite HPI: Celso Blanton is a 39 y.o. male with PMH of polysubstance use (crack/cocaine and ETOH), DM, and psych history p/w BL feet frostbite after being found down by EMS earlier this morning with unknown down time. Other inj: rhabdo. Patient reports no numbness or tingling to bilateral feet. Review of Systems: 10 point review of systems reviewed and was otherwise negative. PMH: No past medical history on file. PSH: No past surgical history on file. Medications: No current facility-administered medications on file prior to encounter. No current outpatient medications on file prior to encounter. Allergies: Not on File Social History: Social History Tobacco Use Smoking status: Not on file Smokeless tobacco: Not on file Substance Use Topics Alcohol use: Not on file Social Documentation No social documentation on file. Family History: No family history on file. Objective Vital signs: Vitals: 06/22/24 1600 BP: 158/90 Pulse: (!) 111 Resp: (!) 24 Temp: (!) 38.1 ??C (100.6 ??F) SpO2: 100% Physical Exam: General: alert and oriented, in no acute distress Head: Normocephalic, atraumatic Eyes: Extra-ocular movements intact Cardiovascular: regular rate and rhythm Respiratory: unlabored breathing Neuro: CN II-XII grossly intact PRS Exam: Sensation slightly reduced over plantar aspect of bilateral toes. No eschar or blisters noted on exam. Toes appear with good coloration, well perfused. Patient able to wiggle all toes bilaterally. Labs: Recent Results (from the past 24 hours) [facility] - Comprehensive Metabolic Panel Collection Time: 06/22/24 8:08 AM Specimen: Venous, Peripheral; Blood Result Value Ref Range NA 138 135 - 145 mmol/L K 4.7 3.5 - 5.3 mmol/L Cl 97 (L) 98 - 107 mmol/L CO2 16 (L) 22 - 32 mmol/L Anion Gap 25 (H) 5 - 15 Glucose 235 (H) 65 - 99 mg/dL Creatinine 1.30 0.60 - 1.30 mg/dL Calcium 9.3 8.6 - 10.5 mg/dL Total Protein 8.1 (H) 6.0 - 8.0 g/dL Albumin 4.5 3.5 - 5.2 g/dL Bilirubin, Total 0.5 0.2 - 1.2 mg/dL Alkaline Phosphatase 60 35 - 129 U/L AST 314 (H) 10 - 40 U/L ALT 142 (H) 10 - 40 U/L BUN 50 (H) 7 - 23 mg/dL eGFR 72 >=60 mL/min/1.73m2 Globulin, Total 3.6 2.1 - 4.2 g/dL A/G Ratio 1.3 (L) 1.5 - 3.0 CBC Auto Differential Collection Time: 06/22/24 8:08 AM Specimen: Venous, Peripheral; Blood Result Value Ref Range WBC 10.9 (H) 3.8 - 10.8 10*3/uL RBC 4.68 4.20 - 5.80 10*6/uL Hemoglobin 11.5 (L) 13.2 - 17.1 g/dL Hematocrit 35.7 (L) 38.5 - 50.0 % MCV 76.3 (L) 80.0 - 100.0 fL MCH 24.6 (L) 27.0 - 33.0 pg MCHC 32.2 32.0 - 36.0 g/dL RDW 15.3 (H) 11.0 - 15.0 % Platelets 186 140 - 400 10*3/uL MPV 10.4 7.5 - 12.5 fL Neutrophil % 91.5 % Immature Grans % 0.4 0.0 - 0.9 % Lymphocyte % 4.1 % Monocyte % 3.9 % Eosinophil % 0.0 % Basophil % 0.1 % Neutrophil # 9.95 (H) 1.50 - 7.80 10*3/uL Immature Grans # 0.04 (H) <=0.03 10*3/uL Lymphocyte # 0.50 (L) 0.85 - 3.90 10*3/uL Monocyte # 0.40 0.20 - 0.95 10*3/uL Eosinophil # <0.03 0.02 - 0.50 10*3/uL Basophil # <0.03 0.00 - 0.20 10*3/uL nRBC % 0.0 /100 WBCs nRBC # <0.01 <0.01 10*3/uL Lactic Acid (w/Repeat if >2) - Sepsis Collection Time: 06/22/24 8:08 AM Specimen: Venous, Peripheral; Blood Result Value Ref Range Lactic Acid 2.7 (H) 0.5 - 1.9 mmol/L Lipase Collection Time: 06/22/24 8:08 AM Specimen: Venous, Peripheral; Blood Result Value Ref Range Lipase 27 13 - 60 U/L Creatine Kinase Collection Time: 06/22/24 8:08 AM Specimen: Venous, Peripheral; Blood Result Value Ref Range CK 17,563 (H) 49 - 348 U/L Ethanol Collection Time: 06/22/24 8:08 AM Specimen: Venous, Peripheral; Blood Result Value Ref Range Ethanol <10 <10 mg/dL COVID-19, Flu A/B & RSV RNA PCR, Symptomatic Collection Time: 06/22/24 8:10 AM Specimen: Nares; Swab Result Value Ref Range PCR, SARS CoV-2 RNA Not Detected Not Detected Flu A RNA PCR Not Detected Not Detected Flu B RNA PCR Not Detected Not Detected RSV RNA PCR Not Detected Not Detected Lactic Acid, Plasma Collection Time: 06/22/24 10:59 AM Specimen: Venous, Peripheral; Blood Result Value Ref Range Lactic Acid 1.6 0.5 - 1.9 mmol/L BMP - Basic Metabolic Panel Collection Time: 06/22/24 3:13 PM Specimen: Venous, Peripheral; Blood Result Value Ref Range NA 136 135 - 145 mmol/L K 5.0 3.5 - 5.3 mmol/L Cl 99 98 - 107 mmol/L CO2 18 (L) 22 - 32 mmol/L BUN 37 (H) 7 - 23 mg/dL Creatinine 1.17 0.60 - 1.30 mg/dL Glucose 293 (H) 65 - 99 mg/dL Calcium 8.3 (L) 8.6 - 10.5 mg/dL Anion Gap 19 (H) 5 - 15 eGFR 81 >=60 mL/min/1.73m2 Creatine Kinase Collection Time: 06/22/24 3:13 PM Specimen: Venous, Peripheral; Blood Result Value Ref Range CK 12,274 (H) 49 - 348 U/L Imaging: X-Ray Hand Left 3+ ViewsResult Date: 06/22/2024 acute fracture or dislocation. Alignment and joint spaces are maintained. Soft tissues are within normal limits. If this radiology report contains a blank impression section, it is an incomplete radiology report. Please contact the interpreting radiologist or applicable radiology division as soon as possible to obtain the completed interpretation. Workstation ID: [id number] C-Spine WO ContrastResult Date: 06/22/2024 acute fracture or traumatic malalignment of the cervical spine. If this radiology report contains a blank impression section, itis an incomplete radiology report. Please contact the interpreting radiologist or applicable radiology division as soon as possible to obtain the completed interpretation. Workstation ID: [id number] Up-to-date CT equipment and radiation dose reduction techniques were employed. CTDIvol: 26.2 - 70.4 mGy. DLP: 2128 mGy-cm. The following accession numbers are related to this dose report [id number]: [id number] Head WO ContrastResult Date: 06/22/2024 acute intracranial hemorrhage, large territorial infarction, or mass effect. If this radiology report contains a blank impression section, it is an incomplete radiology report. Please contact the interpreting radiologist or applicable radiology division as soon as possible to obtain the completed interpretation. Workstation ID: [id number] Up-to-date CT equipment and radiation dose reduction techniques were employed. CTDIvol: 26.2 - 70.4 mGy. DLP: 2128 mGy-cm. The following accession numbers are related to this dose report [id number]: [id number] Chest Portable 1 ViewResult Date: 06/22/2024No acute pulmonary process or acute displaced fracture. If this radiology report contains a blank impression section, it is an incomplete radiology report. Please contact the interpreting radiologist or applicable radiology division as soon as possible to obtain the completed interpretation. Workstation ID: [id number] I have personally reviewed the patient's relevant imaging. Assessment & Plan Celso Blanton is a 39 y.o. male who presents with BL feet frostbite for which plastic surgery isconsulted. Plastic and reconstructive surgery will continue to follow for wound eval. Recommend daily dressing changes with fluffs flossed between toes, otherwise left open to air. Will allow wound to continue demarcation. Otherwise, gentle warming with application of Cele hugger. Care per IM Motrin 600mg q6h, x 72 hours Avoid refreezing, gentle rewarming w/ Cele hugger to feet Dressings: fluffs between toes, loose kerlix wrap [ ] See 06/25 vs 06/26 for repeat exam The plan has been discussed with Plastic Surgery Attending, Emiliano Salcedo MD. Darlyn Farfan MD, PGY-1 Plastic & Reconstructive Surgery .lntcon Cosigned by Emiliano Salcedo MD at 06/23/2024 8:30 AM EST Associated attestation - Emiliano Salcedo MD - 06/23/2024 8:30 AM EST I reviewed the case with the resident but did not see the patient. I agree with the assessment and plan as documented in the resident's note. * ED Continuation of Care - David Barker MD - 06/22/2024 3:00 PM EST ED Continuation of Care 06/22/24 3:00 PM Sign out from Dr. Hardy and Palma 39 year old male with known polysubstance use and (crack/cocaine and ETOH) found down. Somnolent and intoxicated on arrival. Mild frostbite to toes, undergoing rewarming. Vitals with tachycardia 100s, HD stable. Afebrile. Labs: CK 1700s, AGMA, LFTs subtle elevation. ETOH negative. LA 2.7 -- nl. IVF 2L CT reassuring. XR reassuring. [ ] Repeat labs [ ] PRS engaged and following [ ] Admit MDM ED Course as of 06/23/242006 Sun Jun 22, 2024 0912 Chest x-ray without any acute cardiopulmonary process. CBC with mild leukocytosis 10.9, hemoglobin 11.5. CMP with bicarb 16, elevated anion gap 25, BUN 50, AST/ALT 314/142. Elevated lactate 2.7.CK 17,563. Ordered for IVF bolus x2, will start maintenance IVF following. [RS] 1024 Patient off cele hugger. [RS] 1319 CT head and C-spine negative. Patient re-evaluated for cervical spine precautions. Cervical collar in place. CT of the cervical spine showed no evidence of fracture. On exam, patient denied any bony tenderness of the cervical spine on palpation. Patient had pain free ROM to 30 degrees in extens ion as well as flexion, 45 degrees in right and left rotation. Collar removed, no further need for cervical spine precautions. [RS] 1320 COVID/flu/RSV swab negative. Patient ordered for tetanus given potential frostbite. Lactate cleared to 1.6. Will obtain repeat EKG. Reassessed toes, appear improved however will repeat warm fluid bags. Also reevaluated patient's left hand now that he is more awake, reporting tenderness. Will obtain x-ray. Plan for admission following x-ray. [RS] 1356 EKG interpreted by me in the absence of a welfare visitor. Rhythm is normal sinus. Rate of 86. Noacute ischemic changes. No previous EKG on file. [RS] 1412 Left hand x-ray negative. Will admit to medicine. [RS] 1537 Spoke with medicine. Requesting repeat BMP and CK, plastics consult for frostbite. Consulted and discussed with plastics, will evaluate patient. Repeat BMP and CK pending. [RS] 1609 Repeat BMP with improvement, anion gap improved to 19 and BUN improved to 37 and bicarb improved to 18. CK improved to 12,274. Patient now admitted to medicine. [RS] ED Course User Index [RS] Quintin Waldrop MD Celso Blanton : 1985 CSN: [id number] Cosigned by Mack Cortez MD at 06/25/2024 9:38 AM EST Associated attestation - Mack Cortez MD - 06/25/2024 9:38 AM EST Attending to Resident/Fellow - I did not personally examine the patient that I received in signout from the prior attending. I discussed the case with the previous attending. After assuming care of the patient, I discussed the case with the resident(s)/fellow(s) and agree with the findings and mirian documented by the resident(s)/fellow(s). Collins elements, clarifications and/or exceptions are noted by me. Celso Blanton : 1985 CSN: [id number] * Emergency Department Information Exchange - BRIAN - [place] Interface - 06/22/2024 7:47 AM EST [facility] NOTIFICATION 06/22/2024 07:39 CELSO BLANTON : 1985 [facility]'s patient encounter information: MRN:[id number] Account Number:?[id number] Billing Account Number:[id number] Criteria Met High-Utilizers Standard: 6 ED visits within 6 months Security and Safety No Security Events were found. ED Care Guidelines There are currently no ED Care Guidelines for this patient. Please check your facility's medical records system. Prescription Drug Data No Prescription Drug Data was found. E.D. Visit Count (12 mo.) Facility Visits [facility] 19 [facility] 3 [facility] 1 Total 23 Note: Visits indicate total known visits. Recent Emergency Department Visit Summary Showing 10 most recent visits out of 23 in the past 12 months Date Facility City State Type Diagnoses or Chief Complaint Jun 22, 2024 [facility]. Cocaine abuse, uncomplicated 99. Suicidal ideations [facility] 1. Dizziness and giddiness 1. Cocaine use, unspecified, uncomplicated 2. Type 2 diabetes mellitus without complications 3. Paranoid schizophrenia 4. Unspecified fall, initial encounter [facility] 1. Paranoid schizophrenia 3. Encounter for screening for COVID-19 4. Type 2 diabetes mellitus without complications 99. Auditory hallucinations 99. Suicidal ideations Feb [facility] 1. Schizophrenia, unspecified 2. Type 2 diabetes mellitus without complications 3. Essential (primary) hypertension 4. 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 Other [place] [facility] (current) drug therapy 7. Encounter for screening for COVID-19 99. Suicidal ideations 99. Poisoning by heroin, accidental (unintentional), initial encounter Feb [facility] 20[facility] 1. Pain, unspecified 2. Procedure and treatment not carried out due to patient leaving prior to being seen by health care provider Jan 23, 2024 [facility] Chief Complaint: PSYCH [facility] Chief Complaint: ETOH, ?ALTERCATION Jan 10[facility] 20[facility] 1. Paranoid schizophrenia 1. Poisoning by analeptics and opioid receptor antagonists, accidental (unintentional), initial encounter 2. Toxic effect of unspecified substance, accidental (unintentional), initial encounter 3. Exposure to other specified factors, initial encounter 4. Opioid dependence, uncomplicated 5. Cocaine dependence with unspecified cocaine-induced disorder 6. Major depressive disorder, single episode, unspecified 7. Alcohol abuse, uncomplicated 8. Type 2 diabetes mellitus without complications 9. skilled nursing (current) use of oral hypoglycemic drugs Oct 25, 2023 [facility] Emergency 1. Auditory hallucinations 1. Paranoid schizophrenia 2. 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 Encounter for screening for COVID-19 4. Encounter for observation for suspected exposure to other biological agents ruled out 5. 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 Cocaine abuse, uncomplicated 99. Homicidal ideations 99. Suicidal ideations 99. Patient's other noncompliance with medication regimen for other reason Recent Inpatient Visit Summary Date [facility] Type Diagnoses or Chief Complaint Aug 22, 2023 [facility] Inpatient 99. Unspecified open wound, right foot, initial encounter 99. Personal history of other specified conditions 99. Solitary pulmonary nodule 99. Unspecified infectious disease 99. Cocaine abuse, uncomplicated 99. Acute kidney failure, unspecified 99. Type 2 diabetes mellitus without complications 99. Depression, unspecified 99. Schizophrenia, unspecified 99. Influenza due to other identified influenza virus with other respiratory manifestations Care Team No Care Team was found. [facility] This patient has registered at the [facility] Emergency Department For more information visit: [email or web address] PLEASE NOTE: 1. Any care recommendations and other clinical information are provided as guidelines or for historical purposes only, and providers should exercise their own clinical judgment when providing care. 2. You may only use this information for purposes of treatment, payment or health care operations activities, and subject to the limitations of applicable [employer] Policies. 3. You should consult directly with the organization that provided a care guideline or other clinical history with any questions about additional information or accuracy or completeness of information provided. ? 2024 [facility] - Evri documented in this encounter Plan of Treatment Scheduled Orders Name Type Priority Associated Diagnoses Orde r Schedule Vitamin B12 Lab Timed 06/23/2024 un til discontinued, 1 completed Folate Lab Timed 06/23/2024 unt il discontinued, 1 completed documented as of this encounter Procedures * Due to [place] state law, this organization might not be sharing negative HIV tests. Procedure Name Priority Date/Time Associated Diagnosis Comments CK Timed 06/25/2024 7:41 PM EST POCT GLUCOSE Routine 06/25/2024 5:00 PM EST POCT GLUCOSE Routine 06/25/2024 12:59 PM EST POCT GLUCOSE Routine 06/25/2024 8:27 AM EST CBC AUTO DIFFERENTIAL Routine 06/25/2024 6:41 AM EST PHOSPHORUS Routine 06/25/2024 6:41 AM EST MAGNESIUM Routine 06/25/2024 6:41 AM EST CK Timed 06/25/2024 6:41 AM EST BASIC METABOLIC PANEL Routine 06/25/2024 6:41 AM EST POCT GLUCOSE Routine 06/24/2024 10:09 PM EST CK Timed 06/24/2024 7:45 PM EST POCT GLUCOSE Routine 06/24/2024 6:46 PM EST POCT GLUCOSE Routine 06/24/2024 12:44 PM EST POCT GLUCOSE Routine 06/24/2024 7:16 AM EST CBC AUTO DIFFERENTIAL Routine 06/24/2024 6:07 AM EST PHOSPHORUS Routine 06/24/2024 6:07 AM EST MAGNESIUM Routine 06/24/2024 6:07 AM EST CK Timed 06/24/2024 6:07 AM EST BASIC METABOLIC PANEL Routine 06/24/2024 6:07 AM EST CK Timed 06/23/2024 8:21 PM EST POCT GLUCOSE Routine 06/23/2024 4:57 PM EST UA TIGER TOP Routine 06/23/2024 4:20 PM EST EXTRA TUBES Routine 06/23/2024 4:20 PM EST METHADONE SCREEN W/CONFIRMATION, URINE STAT 06/23/2024 4:11 PM EST MORPHINE AND CODEINE CONFIRMATION, URINE STAT 06/23/2024 4:11 PM EST BARBITURATE SCREEN, URINE STAT 06/23/2024 4:11 PM EST PROPOXYPHENE SCREEN, URINE STAT 06/23/2024 4:11 PM EST MARIJUANA (THC) SCREEN, URINE STAT 06/23/2024 4:11 PM EST PHENCYCLIDINE (PCP) SCREEN, URINE STAT 06/23/2024 4:11 PM EST COCAINE SCREEN, URINE STAT 06/23/2024 4:11 PM EST BENZODIAZEPINE QUALITATIVE SCREEN, URINE STAT 06/23/2024 4:11 PM EST AMPHETAMINE SCREEN, URINE STAT 06/23/2024 4:11 PM EST POCT GLUCOSE Routine 06/23/2024 12:22 PM EST POCT GLUCOSE Routine 06/23/2024 7:50 AM EST VITAMIN B12 STAT Add-on 06/23/2024 7:46 AM EST TSH REFLEX FREE T4 STAT Add-on 06/23/2024 7: 46 AM EST PHOSPHORUS Routine 06/23/2024 7:46 AM EST MAGNESIUM Routine 06/23/2024 7:46 AM EST HEMOGLOBIN A1C Routine 06/23/2024 7:46 AM EST FOLATE STAT Add-on 06/23/2024 7:46 AM EST VITAMIN B12 STAT Add-on 06/23/2024 7:46 AM EST CK Timed 06/23/2024 7:46 AM EST BASIC METABOLIC PANEL Routine 06/23/2024 7:46 AM EST CBC AUTO DIFFERENTIAL Routine 06/23/2024 7:45 AM EST HEPATITIS C ANTIBODY W/REFLEX TO HCV RNA, QUANTITATIVE PCR Routine 06/23/2024 7:44 AM EST CK Timed 06/23/2024 12:13 AM EST POCT GLUCOSE Routine 06/22/2024 10:19 PM EST URINALYSIS W/REFLEX TO MICROSCOPIC & CULTURE Routine 06/22/2024 7:38 PM EST NAVARRO TOP, URN Routine 06/22/2024 7:38 PM EST UA/CULTURE REFLEX Routine 06/22/2024 7:3 8 PM EST BLOOD CULTURE STAT 06/22/2024 6:42 PM EST BLOOD CULTURE STAT 06/22/2024 6:42 PM EST CK STAT 06/22/2024 3:13 PM EST BASIC METABOLIC PANEL STAT 06/22/2024 3:13 PM EST XR HAND 3+ VW LEFT STAT 06/22/2024 1: 52 PM EST ECG 12-LEAD STAT 06/22/2024 1:31 PM EST LACTIC ACID, PLASMA REPEATED Timed 06/22/2024 10:[address] CERVICAL SPINE WO CONTRAST STAT 06/22/2024 8:[address] HEAD WO CONTRAST STAT 06/22/2024 8 :55 AM EST ECG 12-LEAD STAT 06/22/2024 8:12 AM EST MVL QS - COVID-19, FLU A/B & RSV RNA PCR, SYMPTOMATIC STAT 06/22/2024 8:10 AM EST LACTIC ACID, PLASMA W/ REPEAT STAT 06/22/2024 8:08 AM EST CBC AUTO DIFFERENTIAL STAT 06/22/2024 8:08 AM EST LIPASE STAT 06/22/2024 8:08 AM EST CK STAT 06/22/2024 8:08 AM EST ETHANOL STAT 06/22/2024 8:08 AM EST COMPREHENSIVE METABOLIC PANEL STAT 06/22/2024 8:08 AM EST XR CHEST PORTABLE 1 VIEW STAT 06/22/2024 8:03 AM EST HEART & VASCULAR - SCANNED 06/22/2024 documented in this encounter Results * Due to [place] state law, this organization might not be sharing negative HIV tests. * (ABNORMAL) Creatine Kinase (06/25/2024 7:41 PM EST) CK 1,115(H) 49 - 348 U/L 06/25/2024 8:35 PM EST [facility] Blood Structure of peripheral vein / Unknown Venipuncture / Unknown 06/25/2024 7:41 PM EST 06/25/2024 8:05 PM EST us Quintin Ng MD LAB BLOOD ORDERABLES Final Res ult Performing Organization Address [facility] Co de Phone Number [employer] [facility] CLINICAL PATHOLOGY LABORATORY [address] [place] [address], [place] * (ABNORMAL) POCT Glucose, interfaced (06/25/2024 5:00 PM EST) Glucose, POCT 312(H) 70 - 99 mg/dL 06/25/2024 5:01 PM EST [facility] Comment: The qa software test engineer has not determined the efficacy of this test in Critically ill patients. ??[facility] defines Critically ill patients for the purpose of blood glucose monitoring (BGM) by glucometer, as patients meeting one or more of the following criteria: Hypotension- non-ICU patients (systolic blood pressure Less than 90 mmHg) due to shock Hypotension -ICU patients ??(Mean Arterial Pressure (MAP) <60 mmHg or systolic blood pressure < 90 mmHg due to shock Patients receiving Vasopressors (phenylephrine, vasopressin or norepinephrine) Anasarca In all locations, BGM test results should not be relied upon in the above situations, unless these results confirmed with lab-based glucose values. Blood 06/25/2024 5:00 PM EST 06/25/2024 5:01 PM EST us Zuleyma Maldonado MD LAB POCT ORDERABLES - DEVICE Fin al Result Performing Organization Address [facility] Co de Phone Number [facility] [address] [place] [address], [place] * (ABNORMAL) POCT Glucose, interfaced (06/25/2024 12:59 PM EST) Glucose, POCT 156(H) 70 - 99 mg/dL 06/25/2024 1:01 PM EST [facility], [facility] Comment: The qa software test engineer has not determined the efficacy of this test in Critically ill patients. ??[facility] defines Critically ill patients for the purpose of blood glucose monitoring (BGM) by glucometer, as patients meeting one or more of the following criteria: Hypotension- non-ICU patients (systolic blood pressure Less than 90 mmHg) due to shock Hypotension -ICU patients ??(Mean Arterial Pressure (MAP) <60 mmHg or systolic blood pressure < 90 mmHg due to shock Patients receiving Vasopressors (phenylephrine, vasopressin or norepinephrine) Anasarca In all locations, BGM test results should not be relied upon in the above situations, unless these results confirmed with lab-based glucose values. Blood 06/25/2024 12:5 9 PM EST 06/25/2024 1:01 PM EST us Zuleyma Maldonado MD LAB POCT ORDERABLES - DEVICE Fin al Result Performing Organization Address [facility] de Phone Number [facility], [facility] [address] [place] [address], * (ABNORMAL) POCT Glucose, interfaced (06/25/2024 8:27 AM EST) [facility] Signature Glucose, POCT 270(H) 70 - 99 mg/dL 06/25/2024 8:29 AM EST [facility] Comment: The qa software test engineer has not determined the efficacy of this test in Critically ill patients. ??[facility] defines Critically ill patients for the purpose of blood glucose monitoring (BGM) by glucometer, as patients meeting one or more of the following criteria: Hypotension- non-ICU patients (systolic blood pressure Less than 90 mmHg) due to shock Hypotension -ICU patients ??(Mean Arterial Pressure (MAP) <60 mmHg or systolic blood pressure < 90 mmHg due to shock Patients receiving Vasopressors (phenylephrine, vasopressin or norepinephrine) Anasarca In all locations, BGM test results should not be relied upon in the above situations, unless these results confirmed with lab-based glucose values. Blood 06/25/2024 8:27 AM EST 06/25/2024 8:29 AM EST us Zuleyma Maldonado MD LAB POCT ORDERABLES - DEVICE Fin al Result Performing Organization Address [facility] Co de Phone Number [facility] [address] [place] [address], [place] * (ABNORMAL) Creatine Kinase (06/25/2024 6:41 AM EST) CK 1,655(H) 49 - 348 U/L 06/25/2024 8:07 AM EST [employer] CLINICAL PATHOLOGY LABORATORY Blood Structure of peripheral vein / Unknown Venipuncture / Unknown 06/25/2024 6:41 AM EST 06/25/2024 7:29 AM EST Quintin Ng MD LAB BLOOD ORDERABLES Final Res ult Performing Organization Address [facility] Co de Phone Number [employer] CLINICAL PATHOLOGY LABORATORY [address] [place] [address], [place] * Phosphorus (06/25/2024 6:41 AM EST) Phosphorus 3.0 2.5 - 4.5 mg/dL 06/25/2024 8:07 AM EST [employer] CLINICAL PATHOLOGY LABORATORY Blood Structure of peripheral vein / Unknown Venipuncture / Unknown 06/25/2024 6:41 AM EST 06/25/2024 7:29 AM EST Alex Hines MD LAB BLOOD ORDERABLES Fin al Result Performing Organization Address [facility]/ZIP Co de Phone Number [employer] CLINICAL PATHOLOGY LABORATORY [address] [place] [address], [place] * Magnesium (06/25/2024 6:41 AM EST) MG 1.8 1.6 - 2.4 mg/dL 06/25/2024 8:07 AM EST [employer] CLINICAL PATHOLOGY LABORATORY Blood Structure of peripheral vein / Unknown Venipuncture / Unknown 06/25/2024 6:41 AM EST 06/25/2024 7:29 AM EST Alex Hines MD LAB BLOOD ORDERABLES Fin al Result [facility] [address] [place] [address], * (ABNORMAL) Basic metabolic panel (06/25/2024 6:41 AM EST) NA 140 135 - 145 mmol/L 06/25/2024 8:07 AM EST [facility] K 4.1 3.5 - 5.3 mmol/L 06/25/2024 8:07 AM EST [facility] LAB[facility] Cl 103 98 - 107 mmol/L 06/25/2024 8:07 AM EST [facility] CO2 26 22 - 32 mmol/L 06/25/2024 8:07 AM EST [facility] BUN 11 7 - 23 mg/dL 06/25/2024 8:07 AM EST [facility] Creatinine 0.97 0.60 - 1.30 mg/dL 06/25/2024 8:07 AM EST [facility] Glucose 210(H) 65 - 99 mg/dL 06/25/2024 8:07 AM EST [facility] Calcium 9.2 8.6 - 10.5 mg/dL 06/25/2024 8:07 AM EST [facility] LAB[facility] Anion Gap 11 5 - 15 06/25/2024 8:07 AM EST [facility] PATH[facility] LAB[facility] eGFR >90 >=60 mL/min/1. 73m2 06/25/2024 8:07 AM EST [facility]WSASSME[facility] StarsRIP[facility] LABOR[facility]ORY Comment:The estimated glomer ular filtration rate (eGFR) is calculated using a new formula developed by the NKF-ASN task force to eliminate race-based correction factors. The new formula uses serum/plasma creatinine, age, and gender to determine eGFR. A value below 60mls/min might indicate kidney disease and will be flagged. For additional information, see Fuad et al, Am J Kidney Dis. 2021;79(2):268- 288, A Unifying Approach for GFR estimation: Recommendations of the NKF-ASN Task Force on Reassessing the Inclusion of Race in Diagnosing Kidney Disease . Blood Structure of peripheral vein / Unknown Venipuncture / Unknown 06/25/2024 6:41 AM EST 06/25/2024 7:29 AM EST Alex Hines MD LAB BLOOD ORDERABLES Fin al Result [facility] LAB[facility]ATORY [address] [place] [address], * (ABNORMAL) CBC Auto Differential (06/25/2024 6:41 AM EST) WBC 6.9 3.8 - 10.8 10*3/uL 06/25/2024 7:36 AM EST [facility] RBC 4.07(L) 4.20 - 5.80 10*6/uL 06/25/2024 7:36 AM EST [facility] Hemoglobin 10.1(L) 13.2 - 17.1 g/dL 06/25/2024 7:36 AM EST [facility] Hematocrit 31.7(L) 38.5 - 50.0 % 06/25/2024 7:36 AM EST [facility] MCV 77.9(L) 80.0 - 100.0 fL 06/25/2024 7:36 AM EST [facility] MCH 24.8(L) 27.0 - 33.0 pg 06/25/2024 7:36 AM EST [facility] MCHC 31.9(L) 32.0 - 36.0 g/dL 06/25/2024 7:36 AM EST [facility] RDW 15.6(H) 11.0 - 15.0 % 06/25/2024 7:36 AM EST [facility] Platelets 185 140 - 400 10*3/uL 06/25/2024 7:36 AM EST [facility] MPV 10.1 7.5 - 12.5 fL 06/25/2024 7:36 AM EST [facility] Neutrophil % 63.4 % 06/25/2024 7:36 AM EST [facility] Immature Grans % 0.1 0.0 - 0.9 % 06/25/2024 7:36 AM EST [facility] Lymphocyte % 25.0 % 06/25/2024 7:36 AM EST [facility] Monocyte % 10.0 % 06/25/2024 7:36 AM EST [facility] Eosinophil % 1.2 % 06/25/2024 7:36 AM EST [facility] Basophil % 0.3 % 06/25/2024 7:36 AM EST [facility] Neutrophil # 4.36 1.50 - 7.80 10*3/uL 06/25/2024 7:36 AM EST [facility] Immature Grans # <0.03 <=0.03 10*3/uL 06/25/2024 7:36 AM EST [facility] Lymphocyte # 1.70 0.85 - 3.90 10*3/uL 06/25/2024 7:36 AM EST [facility] Monocyte # 0.70 0.20 - 0.95 10*3/uL 06/25/2024 7:36 AM EST [facility] Eosinophil # 0.10 0.02 - 0.50 10*3/uL 06/25/2024 7:36 AM EST [facility] Basophil # <0.03 0.00 - 0.20 10*3/uL 06/25/2024 7:36 AM EST [facility] nRBC % 0.0 /100 WBCs 06/25/2024 7:36 AM EST [facility] nRBC # <0.01 <0.01 10*3/uL 06/25/2024 7:36 AM EST [facility] CLINICAL PATHOLOGY LABORATORY Blood Structure of peripheral vein / Unknown Venipuncture / Unknown 06/25/2024 6:41 AM EST 06/25/2024 7:29 AM EST Alex Hines MD LAB BLOOD ORDERABLES Fin al Result Performing Organization Address City/[facility]/ZIP Co de Phone Number [facility] CLINICAL PATHOLOGY LABORATORY [address] [place] [address], [place] * (ABNORMAL) POCT Glucose, interfaced (06/24/2024 10:09 PM EST) Glucose, POCT 115(H) 70 - 99 mg/dL 06/24/2024 10:10 PM EST [facility] Comment: The qa software test engineer has not determined the efficacy of this test in Critically ill patients. ??[facility] defines Critically ill patients for the purpose of blood glucose monitoring (BGM) by glucometer, as patients meeting one or more of the following criteria: Hypotension- non-ICU patients (systolic blood pressure Less than 90 mmHg) due to shock Hypotension -ICU patients ??(Mean Arterial Pressure (MAP) <60 mmHg or systolic blood pressure < 90 mmHg due to shock Patients receiving Vasopressors (phenylephrine, vasopressin or norepinephrine) Anasarca In all locations, BGM test results should not be relied upon in the above situations, unless these results confirmed with lab-based glucose values. Blood 06/24/2024 10:0 9 PM EST 06/24/2024 10:10 PM EST us Zuleyma Maldonado MD LAB POCT ORDERABLES - DEVICE Fin al Result Performing Organization Address City/[facility]/ZIP Co de Phone Number [facility], [facility] [address] [place] [address], [place] * (ABNORMAL) Creatine Kinase (06/24/2024 7:45 PM EST) CK 2,447(H) 49 - 348 U/L 06/24/2024 8:43 PM EST [facility] CLINICAL PATHOLOGY LABORATORY Blood Structure of peripheral vein / Unknown Venipuncture / Unknown 06/24/2024 7:45 PM EST 06/24/2024 7:58 PM EST us Quintin Ng MD LAB BLOOD ORDERABLES Final Res ult Performing Organization Address City/[facility]/ZIP Co de Phone Number [facility] CLINICAL PATHOLOGY LABORATORY [address] [place] [address], [place] * (ABNORMAL) POCT Glucose, interfaced (06/24/2024 6:46 PM EST) Glucose, POCT 341(H) 70 - 99 mg/dL 06/24/2024 6:47 PM EST [facility] Comment: The qa software test engineer has not determined the efficacy of this test in Critically ill patients. ??[facility] defines Critically ill patients for the purpose of blood glucose monitoring (BGM) by glucometer, as patients meeting one or more of the following criteria: Hypotension- non-ICU patients (systolic blood pressure Less than 90 mmHg) due to shock Hypotension -ICU patients ??(Mean Arterial Pressure (MAP) <60 mmHg or systolic blood pressure < 90 mmHg due to shock Patients receiving Vasopressors (phenylephrine, vasopressin or norepinephrine) Anasarca In all locations, BGM test results should not be relied upon in the above situations, unless these results confirmed with lab-based glucose values. Blood 06/24/2024 6:46 PM EST 06/24/2024 6:47 PM EST us Zuleyma Maldonado MD LAB POCT ORDERABLES - DEVICE Fin al Result Performing Organization Address City/[facility]/ZIP Co de Phone Number [facility], [facility] [address] [place] [address], [place] * (ABNORMAL) POCT Glucose, interfaced (06/24/2024 12:44 PM EST) Glucose, POCT 243(H) 70 - 99 mg/dL 06/24/2024 12:45 PM EST [facility] Comment: The qa software test engineer has not determined the efficacy of this test in Critically ill patients. ??[facility] defines Critically ill patients for the purpose of blood glucose monitoring (BGM) by glucometer, as patients meeting one or more of the following criteria: Hypotension- non-ICU patients (systolic blood pressure Less than 90 mmHg) due to shock Hypotension -ICU patients ??(Mean Arterial Pressure (MAP) <60 mmHg or systolic blood pressure < 90 mmHg due to shock Patients receiving Vasopressors (phenylephrine, vasopressin or norepinephrine) Anasarca In all locations, BGM test results should not be relied upon in the above situations, unless these results confirmed with lab-based glucose values. Blood 06/24/2024 12:4 4 PM EST 06/24/2024 12:44 PM EST us Zuleyma Maldonado MD LAB POCT ORDERABLES - DEVICE Fin al Result Performing Organization Address City/State/[facility] Co de Phone Number [facility] [address] [place] [address], * (ABNORMAL) POCT Glucose, interfaced (06/24/2024 7:16 AM EST) [facility] Glucose, POCT 228(H) 70 - 99 mg/dL 06/24/2024 7:17 AM EST [facility] Comment: The qa software test engineer has not determined the efficacy of this test in Critically ill patients. ??[facility] defines Critically ill patients for the purpose of blood glucose monitoring (BGM) by glucometer, as patients meeting one or more of the following criteria: Hypotension- non-ICU patients (systolic blood pressure Less than 90 mmHg) due to shock Hypotension -ICU patients ??(Mean Arterial Pressure (MAP) <60 mmHg or systolic blood pressure < 90 mmHg due to shock Patients receiving Vasopressors (phenylephrine, vasopressin or norepinephrine) Anasarca In all locations, BGM test results should not be relied upon in the above situations, unless these results confirmed with lab-based glucose values. Blood 06/24/2024 7:16 AM EST 06/24/2024 7:17 AM EST Quintin Ng MD LAB POCT ORDERABLES - DEVICE F inal Result Performing Organization Address City/[facility]/ZIP Co de Phone Number [facility] [address] [place] [address], [place] * (ABNORMAL) Creatine Kinase (06/24/2024 6:07 AM EST) CK 3,647(H) 49 - 348 U/L 06/24/2024 7:34 AM EST [employer] CLINICAL PATHOLOGY LABORATORY Blood Structure of peripheral vein / Unknown Venipuncture / Unknown 06/24/2024 6:07 AM EST 06/24/2024 6:40 AM EST us Quintin Ng MD LAB BLOOD ORDERABLES Final Res ult Performing Organization Address [facility] Co de Phone Number [employer] CLINICAL PATHOLOGY LABORATORY [address] [place] [address], [place] * (ABNORMAL) Phosphorus (06/24/2024 6:07 AM EST) Phosphorus 2.2(L) 2.5 - 4.5 mg/dL 06/24/2024 7:29 AM EST [email or web address] PATHOLOGY LABORAT[facility] Blood Structure of peripheral vein / Unknown Venipuncture / Unknown 06/24/2024 6:07 AM EST 06/24/2024 6:40 AM EST Alex Hines MD LAB BLOOD ORDERABLES Fin al Result Performing Organization Address City/[facility]/ZIP Co de Phone Number [employer] CLINICAL PATHOLOGY LABORATORY [address] [place] [address], [place] * Magnesium (06/24/2024 6:07 AM EST) MG 2.1 1.6 - 2.4 mg/dL 06/24/2024 7:29 AM EST [employer] CL[facility]ICAL PATHOLOGY LABORATORY Blood Structure of peripheral vein / Unknown Venipuncture / Unknown 06/24/2024 6:07 AM EST 06/24/2024 6:40 AM EST us Alex Hines MD LAB BLOOD ORDERABLES Fin al Result [employer] CL[facility]ICAL PATHOLOGY LABORATORY [address] [place] [address], * (ABNORMAL) Basic metabolic panel (06/24/2024 6:07 AM EST) NA 139 135 - 145 mmol/L 06/24/2024 7:29 AM EST [facility] K 4.0 3.5 - 5.3 mmol/L 06/24/2024 7:29 AM EST [facility] Cl 104 98 - 107 mmol/L 06/24/2024 7:29 AM EST [facility] CO2 27 22 - 32 mmol/L 06/24/2024 7:29 AM EST [facility] BUN 14 7 - 23 mg/dL 06/24/2024 7:29 AM EST [facility] Creatinine 1.00 0.60 - 1.30 mg/dL 06/24/2024 7:29 AM EST [facility] Glucose 234(H) 65 - 99 mg/dL 06/24/2024 7:29 AM EST [facility] Calcium 8.7 8.6 - 10.5 mg/dL 06/24/2024 7:29 AM EST [facility] Anion Gap 8 5 - 15 06/24/2024 7:29 AM EST [facility] eGFR >90 >=60 mL/min/1. 73m2 06/24/2024 7:29 AM EST [facility] Comment:The estimated glomer ular filtration rate (eGFR) is calculated using a new formula developed by the NKF-ASN task force to eliminate race-based correction factors. The new formula uses serum/plasma creatinine, age, and gender to determine eGFR. A value below 60mls/min might indicate kidney disease and will be flagged. For additional information, see Fuad et al, Am J Kidney Dis. 2021;79(2):268- 288, A Unifying Approach for GFR estimation: Recommendations of the NKF-ASN Task Force on Reassessing the Inclusion of Race in Diagnosing Kidney Disease . Blood Structure of peripheral vein / Unknown Venipuncture / Unknown 06/24/2024 6:07 AM EST 06/24/2024 6:40 AM EST us Alex Hines MD LAB BLOOD ORDERABLES Fin al Result [facility] [address] [place] [id number], * (ABNORMAL) CBC Auto Differential (06/24/2024 6:07 AM EST) WBC 6.8 3.8 - 10.8 10*3/uL 06/24/2024 6:46 AM EST [facility] RBC 3.79(L) 4.20 - 5.80 10*6/uL 06/24/2024 6:46 AM EST [facility] Hemoglobin 9.3(L) 13.2 - 17.1 g/dL 06/24/2024 6:46 AM EST [facility] Hematocrit 28.7(L) 38.5 - 50.0 % 06/24/2024 6:46 AM EST [facility] MCV 75.7(L) 80.0 - 100.0 fL 06/24/2024 6:46 AM EST [facility] MCH 24.5(L) 27.0 - 33.0 pg 06/24/2024 6:46 AM EST [facility] MCHC 32.4 32.0 - 36.0 g/dL 06/24/2024 6:46 AM EST [facility] RDW 15.3(H) 11.0 - 15.0 % 06/24/2024 6:46 AM EST [facility] Platelets 174 140 - 400 10*3/uL 06/24/2024 6:46 AM EST [facility] MPV 10.4 7.5 - 12.5 fL 06/24/2024 6:46 AM EST [facility] Neutrophil % 63.2 % 06/24/2024 6:46 AM EST [facility] Immature Grans % 0.3 0.0 - 0.9 % 06/24/2024 6:46 AM EST [facility] Lymphocyte % 24.7 % 06/24/2024 6:46 AM EST [facility] Monocyte % 11.4 % 06/24/2024 6:46 AM EST [facility] Eosinophil % 0.1 % 06/24/2024 6:46 AM EST [facility] Basophil % 0.3 % 06/24/2024 6:46 AM EST [facility] Neutrophil # 4.32 1.50 - 7.80 10*3/uL 06/24/2024 6:46 AM EST [facility] Immature Grans # <0.03 <=0.03 10*3/uL 06/24/2024 6:46 AM EST [facility] Lymphocyte # 1.70 0.85 - 3.90 10*3/uL 06/24/2024 6:46 AM EST [facility] Monocyte # 0.80 0.20 - 0.95 10*3/uL 06/24/2024 6:46 AM EST [facility] Eosinophil # <0.03 0.02 - 0.50 10*3/uL 06/24/2024 6:46 AM EST [facility] Basophil # <0.03 0.00 - 0.20 10*3/uL 06/24/2024 6:46 AM EST [facility] nRBC % 0.0 /100 WBCs 06/24/2024 6:46 AM EST [facility] nRBC # <0.01 <0.01 10*3/uL 06/24/2024 6:46 AM EST [facility] Blood Structure of peripheral vein / Unknown Venipuncture / Unknown 06/24/2024 6:07 AM EST 06/24/2024 6:40 AM EST us Alex Hines MD LAB BLOOD ORDERABLES Fin al Result Performing Organization Address [facility]/ZIP Co de Phone Number [facility] CLIN[facility] PATH[facility] LABORATORY [address] [place] [address], * (ABNORMAL) Creatine Kinase (06/23/2024 8:21 PM EST) CK 5,128(H) 49 - 348 U/L 06/23/2024 10:25 PM EST [facility]ENTERDigital FortressAZ [employer] [facility] PATHOLOGY LABORATORY Blood Structure of peripheral vein / Unknown Venipuncture / Unknown 06/23/2024 8:21 PM EST 06/23/2024 9:29 PM EST us Quintin Ng MD LAB BLOOD ORDERABLES Final Res ult Performing Organization Address [facility]/ZIP Co de Phone Number [facility] [address] [place] [address], [place] * (ABNORMAL) POCT Glucose, interfaced (06/23/2024 4:57 PM EST) Glucose, POCT 314(H) 70 - 99 mg/dL 06/23/2024 4:57 PM EST [facility] Comment: The qa software test engineer has not determined the efficacy of this test in Critically ill patients. ??[facility] defines Critically ill patients for the purpose of blood glucose monitoring (BGM) by glucometer, as patients meeting one or more of the following criteria: Hypotension- non-ICU patients (systolic blood pressure Less than 90 mmHg) due to shock Hypotension -ICU patients ??(Mean Arterial Pressure (MAP) <60 mmHg or systolic blood pressure < 90 mmHg due to shock Patients receiving Vasopressors (phenylephrine, vasopressin or norepinephrine) Anasarca In all locations, BGM test results should not be relied upon in the above situations, unless these results confirmed with lab-based glucose values. Blood 06/23/2024 4:57 PM EST 06/23/2024 4:57 PM EST Quintin Ng MD LAB POCT ORDERABLES - DEVICE F inal Result Performing Organization Address [facility] Co de Phone Number [facility] [address] [place] [address], [place] * [facility] [place] Top (06/23/2024 4:20 PM EST) Extra Tube Hold for add-ons. 06/23/2024 9:05 PM EST [facility] [facility] [facility] Comment:Auto resulted. Urine Urine specimen collection, clean catch / Unknown 06/23/2024 4:20 PM EST 06/23/2024 4:20 PM EST Quintin Ng MD LAB BLOOD ORDERABLES Final Res ult Performing Organization Address [facility] Co de Phone Number [facility] LAB[facility] [address] [place] [address], [place] * Propoxyphene Screen, Urine (06/23/2024 4:11 PM EST) Propoxyphene Screen, Urine NEGATIVE <300 ng/mL 06/24/2024 5:13 AM EST [employer] Comment: See Note 2 Note 1 This drug testing is for medical treatment only. ?? Analysis was performed as non-forensic testing and these results should be used only by healthcare providers to render diagnosis or treatment, or to monitor progress of medical conditions. For assistance with interpreting these drug results, please contact a [employer] Toxicology Specialist: [phone] ( ), M-F, 8am-6pm EST. Note 2 This drug testing is for medical treatment only. ?? The results are presumptive; based only on screening methods, and they have not been confirmed by a definitive method. Analysis was performed as non-forensic testing and these results should be used only by healthcare providers to render diagnosis or treatment, or to monitor progress of medical conditions. For assistance with interpreting these drug results, please contact a [employer] Toxicology Specialist: [phone] ( ), M-F, 8am-6pm EST. Urine Voided urine specimen / Unknown Non-Blood Collection / Unknown 06/23/2024 4:11 PM EST 06/23/2024 4:18 PM EST Narrative [employer] JOSSE[facility] - 06/24/2024 5:13 AM EST [facility] Received Date: Quintin Ng MD LAB URINE ORDERABLES Final Res ult Performing Organization Address City/[facility]/ZIP Co de Phone Number [facility] [address], [place] [address], [place] [phone] [facility] [address] [facility] [address] [facility], [place] [address], [place] [phone] * Methadone Screen w/Confirmation, Urine (06/23/2024 4:11 PM EST) [facility] Methadone Metabolite Screen, Urine NEGATIVE <100 ng/mL 06/24/2024 5:13 AM EST [facility] Comment: See Note 1 Urine Voided urine specimen / Unknown Non-Blood Collection / Unknown 06/23/2024 4:11 PM EST 06/23/2024 4:18 PM EST Narrative [employer] [facility] - 06/24/2024 5:13 AM EST [facility] Received Date: us Quintin Ng MD LAB URINE ORDERABLES Final Res ult [facility] [address] [facility] [address] [facility], [place] [address], [place] [phone] [facility] [address], [place] [address], [place] [phone] * Benzodiazepine Qualitative Screen, Urine (06/23/2024 4:11 PM EST) Benzodiazepine Screen, Urine Negative Negative 06/23/2024 5:19 PM EST [employer] [facility] [facility] Comment: Detection limit of 200 ng/mL of Nordiazepam. Drug results are to be used only for medical purposes. ??Unconfirmed screening results must not be used for non-medical purposes. Urine Voided urine specimen / Unknown Non-Blood Collection / Unknown 06/23/2024 4:11 PM EST 06/23/2024 4:18 PM EST Quintin Ng MD LAB URINE ORDERABLES Final Res ult Performing Organization Address [facility] de Phone Number [facility]ORY [address] [place] [address], [place] * Barbiturate Screen, Urine (06/23/2024 4:11 PM EST) Barbiturate Screen, Urine Negative Negative 06/23/2024 5:19 PM EST [employer] [facility] [facility] Comment: Detection limit of 200 ng/mL of Secobarbital. Drug results are to be used only for medical purposes. ??Unconfirmed screening results must not be used for non-medical purposes. Detection limit of 200 ng/mL of Secobarbital. Drug results are to be used only for medical purposes. ??Unconfirmed screening results must not be used for non-medical purposes. Urine Voided urine specimen / Unknown Non-Blood Collection / Unknown 06/23/2024 4:11 PM EST 06/23/2024 4:18 PM EST Quintin Ng MD LAB URINE ORDERABLES Final Res ult Performing Organization Address [facility] Co de Phone Number [facility] CLINICAL PATHOLOGY LABORATORY [address] [place] [address], [place] * Phencyclidine (PCP) Screen, Urine (06/23/2024 4:11 PM EST) Phencyclidine Screen, Urine NEGATIVE <25 ng/mL 06/24/2024 5:13 AM EST [facility] Comment: See Note 2 Urine Voided urine specimen / Unknown Non-Blood Collection / Unknown 06/23/2024 4:11 PM EST 06/23/2024 4:18 PM EST Narrative [facility] - 06/24/2024 5:13 AM EST [facility] Received Date: Quintin Ng MD LAB URINE ORDERABLES Final Res ult Performing Organization Address City/[facility]/ZIP Co de Phone Number [facility] [address], [place] [address], [place] [phone] [facility] [address], [place] [address], [place] [phone] * Marijuana Qualitative Screen, Urine (06/23/2024 4:11 PM EST) Marijuana Screen, Urine Negative Negative 06/23/2024 5:19 PM EST [employer] [facility] [facility] Comment: Detection limit of 50 ng/mL of 44-Dtk-[id number]-4-KDW-4-carboxylic acid. Drug results are to be used only for medical purposes. ??Unconfirmed screening results must not be used for non-medical purposes. Urine Voided urine specimen / Unknown Non-Blood Collection / Unknown 06/23/2024 4:11 PM EST 06/23/2024 4:18 PM EST Quintin Ng MD LAB URINE ORDERABLES Final Res ult [facility] [address] [place] [address], [place] * Morphine and Codeine Confirmation, Urine (06/23/2024 4:11 PM EST) Codeine, Urine NEGATIVE <50 ng/mL 06/25/2024 9:46 AM EST [facility] Comment: See Note 1 Hydrocodone, Urine NEGATIVE <50 ng/mL 06/25/2024 9:46 AM EST [facility] Comment: See Note 1 Hydromorphone, Urine NEGATIVE <50 ng/mL 06/25/2024 9:46 AM EST [facility] Comment: See Note 1 Morphine, Urine NEGATIVE <50 ng/mL 9:46 AM EST [facility] Comment: See Note 1 Norhydrocodone, Urine NEGATIVE <50 ng/mL 06/25/2024 9:46 AM EST [facility] Comment: See Note 1 See Note 2 Note 1 This test was developed and its analytical performance characteristics have been determined by [employer]. It has not been cleared or approved by the FDA. This assay has been validated pursuant to the CLIA regulations and is used for clinical purposes. Note 2 This drug testing is for medical treatment only. ?? Analysis was performed as non-forensic testing and these results should be used only by healthcare providers to render diagnosis or treatment, or to monitor progress of medical conditions. For assistance with interpreting these drug results, please contact a [employer] Toxicology Specialist: [phone] ( ), M-F, 8am-6pm EST. Urine Voided urine specimen / Unknown Non-Blood Collection / Unknown 06/23/2024 4:11 PM EST 06/23/2024 4:18 PM EST [facility] - 06/25/2024 9:46 AM EST [facility] Received Date: Quintin Ng MD LAB URINE ORDERABLES Final Res ult [facility] [address], [place] [address], [place] [phone] [facility] [address] [facility] [address], [place] [address], [place] [phone] * (ABNORMAL) Cocaine Qualitative, Urine (06/23/2024 4:11 PM EST) [facility] Cocaine Metabolite Screen, Urine Presumptive Positive(A) Negative 06/23/2024 5:19 PM EST [employer] [facility] [facility] LAB[facility] Comment: Detection limit of 300 ng/mL of Benzoylecgonine. Drug results are to be used only for medical purposes. ??Unconfirmed screening results must not be used for non-medical purposes. Urine Voided urine specimen / Unknown Non-Blood Collection / Unknown 06/23/2024 4:11 PM EST 06/23/2024 4:18 PM EST Quintin Ng MD LAB URINE ORDERABLES Final Res ult Performing Organization Address [facility] de Phone Number [employer] [facility] [facility] CL[facility] PATHOLOG[facility] LABORATORY [address] [place] [address], [place] * Amphetamine Qualitative, Urine (06/23/2024 4:11 PM EST) [facility] Amphetamine Screen, Urine Negative Negative 06/23/2024 5:19 PM EST [facility] [facility] Comment: Detection limit of 1000 ng/mL of d-Methamphetamine. Drug results are to be used only for medical purposes. ??Unconfirmed screening results must not be used for non-medical purposes. Urine Voided urine specimen / Unknown Non-Blood Collection / Unknown 06/23/2024 4:11 PM EST 06/23/2024 4:18 PM EST Quintin Ng MD LAB URINE ORDERABLES Final Res ult Performing Organization Address [facility] Co de Phone Number [employer] [facility] [facility] [facility] PATHOLOG[facility] LABORATORY [address] [place] [address], [place] * (ABNORMAL) POCT Glucose, interfaced (06/23/2024 12:22 PM EST) [facility] Glucose, POCT 281(H) 70 - 99 mg/dL 06/23/2024 12:24 PM EST [facility] Comment: The qa software test engineer has not determined the efficacy of this test in Critically ill patients. ??[facility] defines Critically ill patients for the purpose of blood glucose monitoring (BGM) by glucometer, as patients meeting one or more of the following criteria: Hypotension- non-ICU patients (systolic blood pressure Less than 90 mmHg) due to shock Hypotension -ICU patients ??(Mean Arterial Pressure (MAP) <60 mmHg or systolic blood pressure < 90 mmHg due to shock Patients receiving Vasopressors (phenylephrine, vasopressin or norepinephrine) Anasarca In all locations, BGM test results should not be relied upon in the above situations, unless these results confirmed with lab-based glucose values. Blood 06/23/2024 12:2 2 PM EST 06/23/2024 12:24 PM EST us Quintin Ng MD LAB POCT ORDERABLES - DEVICE F inal Result Performing Organization Address [facility] de Phone Number [facility] [address] [place] [address], * (ABNORMAL) POCT Glucose, interfaced (06/23/2024 7:50 AM EST) [facility] Signature Glucose, POCT 276(H) 70 - 99 mg/dL 06/23/2024 7:51 AM EST [facility] Comment: The qa software test engineer has not determined the efficacy of this test in Critically ill patients. ??[facility] defines Critically ill patients for the purpose of blood glucose monitoring (BGM) by glucometer, as patients meeting one or more of the following criteria: Hypotension- non-ICU patients (systolic blood pressure Less than 90 mmHg) due to shock Hypotension -ICU patients ??(Mean Arterial Pressure (MAP) <60 mmHg or systolic blood pressure < 90 mmHg due to shock Patients receiving Vasopressors (phenylephrine, vasopressin or norepinephrine) Anasarca In all locations, BGM test results should not be relied upon in the above situations, unless these results confirmed with lab-based glucose values. Blood 06/23/2024 7:50 AM EST 06/23/2024 7:51 AM EST us Quintin Ng MD LAB POCT ORDERABLES - DEVICE F inal Result Performing Organization Address [facility]/State/ZIP Co de Phone Number [facility] [address] [place] [address], [place] * Folate (06/23/2024 7:46 AM EST) Folate 15.0 4.8 - 24.2 ng/mL 06/23/2024 2:56 PM EST [employer] [facility] [facility] PATH[facility] LAB[facility] Blood Structure of peripheral vein / Unknown Venipuncture / Unknown 06/23/2024 7:46 AM EST 06/23/2024 7:51 AM EST Quintin Ng MD LAB BLOOD ORDERABLES Final Res ult [facility] LAB[facility]AT[facility] [address] [place] [address], [place] * Vitamin B12 (06/23/2024 7:46 AM EST) Vitamin B12 584 232 - 1,245 pg/mL 06/23/2024 2:56 PM EST [facility] PATHOLOG[facility] Blood Structure of peripheral vein / Unknown Venipuncture / Unknown 06/23/2024 7:46 AM EST 06/23/2024 7:51 AM EST Quintin Ng MD LAB BLOOD ORDERABLES Final Res ult [facility] LAB[facility] [address] [place] [address], [place] * TSH Reflex Free T4 (06/23/2024 7:46 AM EST) TSH 0.337 0.280 - 3.890 uIU/mL 06/23/2024 2:56 PM EST [facility] [employer] [facility] Blood Structure of peripheral vein / Unknown Venipuncture / Unknown 06/23/2024 7:46 AM EST 06/23/2024 7:51 AM EST Quintin Ng MD LAB BLOOD ORDERABLES Final Res ult Performing Organization Address [facility] Co de Phone Number [employer] [facility] [facility] PATHOLOG[facility] LABORATORY [address] [place] [address], * (ABNORMAL) Creatine Kinase (06/23/2024 7:46 AM EST) CK 7,402(H) 49 - 348 U/L 06/23/2024 10:11 AM EST [facility] [employer] [facility] Blood Structure of peripheral vein / Unknown Venipuncture / Unknown 06/23/2024 7:46 AM EST 06/23/2024 7:51 AM EST Alex Hines MD LAB BLOOD ORDERABLES Fin al Result Performing Organization Address [facility] de Phone Number [employer] [facility] PATHOLOG[facility] LABORATORY [address] [place] [address], [place] * (ABNORMAL) Phosphorus (06/23/2024 7:46 AM EST) Phosphorus 1.7(L) 2.5 - 4.5 mg/dL 06/23/2024 10:05 AM EST [employer] [facility] [employer] [facility] PATH[facility] Blood Structure of peripheral vein / Unknown Venipuncture / Unknown 06/23/2024 7:46 AM EST 06/23/2024 7:51 AM EST Alex Hines MD LAB BLOOD ORDERABLES Fin al Result Performing Organization Address [facility] Co de Phone Number [employer] [facility] [facility]OLOG[facility] LAB[facility]ORY [address] [place] [address], [place] * Magnesium (06/23/2024 7:46 AM EST) MG 2.2 1.6 - 2.4 mg/dL 06/23/2024 10:05 AM EST [employer] [facility] [facility] Blood Structure of peripheral vein / Unknown Venipuncture / Unknown 06/23/2024 7:46 AM EST 06/23/2024 7:51 AM EST us Alex Hines MD LAB BLOOD ORDERABLES Fin al Result [employer] [facility]OLOG[facility] LABORATORY [address] [place] [address], * (ABNORMAL) Basic metabolic panel (06/23/2024 7:46 AM EST) NA 138 135 - 145 mmol/L 06/23/2024 10:05 AM EST [facility] [facility] K 4.4 3.5 - 5.3 mmol/L 06/23/2024 10:05 AM EST [facility] [employer] [facility] Cl 102 98 - 107 mmol/L 06/23/2024 10:05 AM EST [employer] [facility] [facility] CO2 26 22 - 32 mmol/L 06/23/2024 10:05 AM EST [employer] [facility] [facility] BUN 21 7 - 23 mg/dL 06/23/2024 10:05 AM EST [facility] Creatinine 1.06 0.60 - 1.30 mg/dL 06/23/2024 10:05 AM EST [facility] Glucose 259(H) 65 - 99 mg/dL 06/23/2024 10:05 AM EST [facility] [facility] Calcium 8.8 8.6 - 10.5 mg/dL 06/23/2024 10:05 AM EST [employer] [facility] [facility] [facility] LAB[facility] Anion Gap 10 5 - 15 06/23/2024 10:05 AM EST [employer] [facility] [facility] [facility] eGFR >90 >=60 mL/min/1. 73m2 06/23/2024 10:05 AM EST [employer] [facility] [facility] [facility] Comment:The estimated glomer ular filtration rate (eGFR) is calculated using a new formula developed by the NKF-ASN task force to eliminate race-based correction factors. The new formula uses serum/plasma creatinine, age, and gender to determine eGFR. A value below 60mls/min might indicate kidney disease and will be flagged. For additional information, see Fuad et al, Am J Kidney Dis. 2021;79(2):268- 288, A Unifying Approach for GFR estimation: Recommendations of the NKF-ASN Task Force on Reassessing the Inclusion of Race in Diagnosing Kidney Disease . Blood Structure of peripheral vein / Unknown Venipuncture / Unknown 06/23/2024 7:46 AM EST 06/23/2024 7:51 AM EST Alex Hines MD LAB BLOOD ORDERABLES Fin al Result Performing Organization Address [facility]/ZIP Co de Phone Number [employer] [facility] LAB[facility]ORY [address] [place] [address], * (ABNORMAL) Hemoglobin A1c (06/23/2024 7:46 AM EST) Hemoglobin A1C 7.9(H) <5.7 % of total Hgb 06/23/2024 12:45 PM EST [employer] Comment: For someone without known diabetes, a hemoglobin A1c value of 6.5% or greater indicates that they may have diabetes and this should be confirmed with a follow-up test. For someone with known diabetes, a value <7% indicates that their diabetes is well controlled and a value greater than or equal to 7% indicates suboptimal control. A1c targets should be individualized based on duration of diabetes, age, comorbid conditions, and other considerations. Currently, no consensus exists regarding use of hemoglobin A1c for diagnosis of diabetes for children. ?? eAG (MG/DL) 180 mg/dL 06/23/2024 12:45 PM EST [employer] eAG (MMOL/L) 10.0 mmol/L 06/23/2024 12:45 PM EST [employer] Blood Structure of peripheral vein / Unknown Venipuncture / Unknown 06/23/2024 7:46 AM EST 06/23/2024 7:46 AM EST Narrative [facility] 06/23/2024 12:45 PM EST [facility] Received Date: Alex Hines MD LAB BLOOD ORDERABLES Fin al Result [facility] [address] [facility] [address], [place] [address], [place] [phone] [facility] [address] [facility] [address], [place] [address], [place] [phone] * (ABNORMAL) CBC Auto Differential (06/23/2024 7:45 AM EST) WBC 7.2 3.8 - 10.8 10*3/uL 06/23/2024 9:36 AM EST [facility] RBC 3.88(L) 4.20 - 5.80 10*6/uL 06/23/2024 9:36 AM EST [facility] Hemoglobin 9.6(L) 13.2 - 17.1 g/dL 06/23/2024 9:36 AM EST [facility] Hematocrit 29.6(L) 38.5 - 50.0 % 06/23/2024 9:36 AM EST [facility] MCV 76.3(L) 80.0 - 100.0 fL 06/23/2024 9:36 AM EST [facility] MCH 24.7(L) 27.0 - 33.0 pg 06/23/2024 9:36 AM EST [facility] MCHC 32.4 32.0 - 36.0 g/dL 06/23/2024 9:36 AM EST [facility] RDW 15.3(H) 11.0 - 15.0 % 06/23/2024 9:36 AM EST [facility] Platelets 161 140 - 400 10*3/uL 06/23/2024 9:36 AM EST [facility] MPV 11.0 7.5 - 12.5 fL 06/23/2024 9:36 AM EST [facility] Neutrophil % 73.0 % 06/23/2024 9:36 AM EST [facility] Immature Grans % 0.3 0.0 - 0.9 % 06/23/2024 9:36 AM EST [facility] Lymphocyte % 16.3 % 06/23/2024 9:36 AM EST [facility] Monocyte % 10.2 % 06/23/2024 9:36 AM EST [facility] Eosinophil % 0.1 % 06/23/2024 9:36 AM EST [facility] Basophil % 0.1 % 06/23/2024 9:36 AM EST [facility] Neutrophil # 5.27 1.50 - 7.80 10*3/uL 06/23/2024 9:36 AM EST [facility] Immature Grans # <0.03 <=0.03 10*3/uL 06/23/2024 9:36 AM EST [facility] Lymphocyte # 1.20 0.85 - 3.90 10*3/uL 06/23/2024 9:36 AM EST [facility] Monocyte # 0.70 0.20 - 0.95 10*3/uL 06/23/2024 9:36 AM EST [facility] Eosinophil # <0.03 0.02 - 0.50 10*3/uL 06/23/2024 9:36 AM EST [facility] Basophil # <0.03 0.00 - 0.20 10*3/uL 06/23/2024 9:36 AM EST [facility] nRBC % 0.0 /100 WBCs 06/23/2024 9:36 AM EST [facility] nRBC # <0.01 <0.01 10*3/uL 06/23/2024 9:36 AM EST [facility] Blood Structure of peripheral vein / Unknown Venipuncture / Unknown 06/23/2024 7:45 AM EST 06/23/2024 7:52 AM EST Alex Hines MD LAB BLOOD ORDERABLES Fin al Result [facility] [address] [place] [address], * Hepatitis C Antibody w/Reflex to HCV RNA, Quantitative PCR (06/23/2024 7:44 AM EST) Hepatitis C Antibody NON-REACT ZAINA NON-REACT ZAINA 06/23/2024 9:10 PM EST [facility] Comment: HCV antibody was non-reactive. There is no laboratory evidence of HCV infection. In most cases, no further action is required. However, if recent HCV exposure is suspected, a test for HCV RNA (test code 26363) is suggested. For additional information please refer to http://education.snapp.me/faq/DXW58z2 (This link is being provided for informational/ educational purposes only.) Blood Structure of peripheral vein / Unknown Venipuncture / Unknown 06/23/2024 7:44 AM EST 06/23/2024 7:45 AM EST Narrative [facility] - 06/23/2024 9:10 PM EST [facility] Received Date: Alex Hines MD LAB BLOOD ORDERABLES Fin al Result Performing Organization Address City/[facility]/ZIP Co de Phone Number [facility] [address] [facility], [place] [address], [place] [phone] [facility] [address], [place] [address], [place] [phone] * (ABNORMAL) Creatine Kinase (06/23/2024 12:13 AM EST) CK 9,504(H) 49 - 348 U/L 06/23/2024 2:13 AM EST [facility] Blood Structure of peripheral vein / Unknown Venipuncture / Unknown 06/23/2024 12:13 AM EST 06/23/2024 1:22 AM EST Alex Hines MD LAB BLOOD ORDERABLES Fin al Result Performing Organization Address [facility]/ZIP Co de Phone Number [facility]ORY [address] [place] [address], [place] * (ABNORMAL) POCT Glucose, interfaced (06/22/2024 10:19 PM EST) Glucose, POCT 288(H) 70 - 99 mg/dL 06/22/2024 10:20 PM EST [facility] Comment: The qa software test engineer has not determined the efficacy of this test in Critically ill patients. ??[facility] defines Critically ill patients for the purpose of blood glucose monitoring (BGM) by glucometer, as patients meeting one or more of the following criteria: Hypotension- non-ICU patients (systolic blood pressure Less than 90 mmHg) due to shock Hypotension -ICU patients ??(Mean Arterial Pressure (MAP) <60 mmHg or systolic blood pressure < 90 mmHg due to shock Patients receiving Vasopressors (phenylephrine, vasopressin or norepinephrine) Anasarca In all locations, BGM test results should not be relied upon in the above situations, unless these results confirmed with lab-based glucose values. Blood 06/22/2024 10:1 9 PM EST 06/22/2024 10:20 PM EST us Alex Hines MD LAB POCT ORDERABLES - DE VICE Final Result Performing Organization Address [facility] Co de Phone Number [facility], [facility] [address] [place] [address], [place] * [place], Urine (06/22/2024 7:38 PM EST) Extra Tube Hold for add-ons. 06/23/2024 1:06 AM EST [facility] LAB[facility] Comment:Auto resulted. Urine Urine specimen collection, clean catch / Unknown Non-Blood Collection / Unknown 06/22/2024 7:38 PM EST 06/22/2024 7:49 PM EST us Alex Hines MD LAB URINE ORDERABLES Fin al Result [facility] [address] [place] [address], * (ABNORMAL) Urinalysis W/Reflex to Microscopic & Culture (06/22/2024 7:38 PM EST) Color, Urine Light Yellow Colorless, Light Yellow, Yellow, Dark Yellow 06/22/2024 8:17 PM EST [facility] Clarity, Urine Clear Clear 06/22/2024 8:17 PM EST [facility] Specific [place], Urine 1.020 1.005 - 1.030 06/22/2024 8:17 PM EST [facility] pH, Urine 6.0 4.6 - 8.0 06/22/2024 8:17 PM EST [facility] Protein, Urine Negative Negative 06/22/2024 8:17 PM EST [facility] Glucose, Urine 3+(A) Negative 06/22/2024 8:17 PM EST [facility] Ketones, Urine 1+(A) Negative 06/22/2024 8:17 PM EST [facility] Bilirubin, Urine Negative Negative 06/22/2024 8:17 PM EST [facility] Blood, Urine 2+(A) Negative 06/22/2024 8:17 PM EST [facility] Nitrite, Urine Negative Negative 06/22/2024 8:17 PM EST [facility] Urobilinogen, Urine Normal Normal 06/22/2024 8:17 PM EST [facility] Leukocyte Esterase, Urine Negative Negative 06/22/2024 8:17 PM EST [facility] WBC, Urine <1 0 - 2 /HPF 06/22/2024 8:17 PM EST [facility] RBC, Urine <1 0 - 2 /HPF 06/22/2024 8:17 PM EST [facility] Hyaline Casts, Urine 0 0 - 2 /LPF 06/22/2024 8:17 PM EST [facility] Bacteria, Urine None None /HPF /HPF 06/22/2024 8:17 PM EST [facility] Urine Urine specimen collection, clean catch / Unknown Non-Blood Collection / Unknown 06/22/2024 7:38 PM EST 06/22/2024 7:49 PM EST Alex Hines MD LAB URINE ORDERABLES Fin al Result [facility] [address] [place] [address], * Blood Culture, Peripheral #2 (06/22/2024 6:42 PM EST) Culture No growth after 5 days 06/27/2024 10:22 PM EST [facility] Blood Structure of peripheral vein / Unknown Venipuncture / Unknown 06/22/2024 6:42 PM EST 06/22/2024 7:04 PM EST Narrative [facility] - 06/27/2024 10:22 PM EST [facility] Received Date: MICRO NUMBER: [id number] SPECIMEN QUALITY: Suboptimal SOURCE: BLOOD VENOUS, PERIPHERAL STATUS: FINAL COMMENT: Aerobic and anaerobic bottle received. Inspection of blood culture bottles indicates that an inadequate volume of blood may have been collected for the detection of sepsis. Alex Hines MD LAB MICROBIOLOGY - GENER AL ORDERABLES Final Result [facility] [address], [place] [address], [place] [phone] [facility] [address] [facility] [address]rd [address], [place] [address], [place] [phone] * Blood Culture, Peripheral #1 (06/22/2024 6:42 PM EST) Pathologist [facility] Culture No growth after 5 days 06/27/2024 10:11 PM EST [facility] Blood Structure of peripheral vein / Unknown Venipuncture / Unknown 06/22/2024 6:42 PM EST 06/22/2024 7:04 PM EST Narrative [facility] - 06/27/2024 10:11 PM EST [facility] Received Date: MICRO NUMBER: [id number] SPECIMEN QUALITY: Suboptimal SOURCE: BLOOD VENOUS, PERIPHERAL STATUS: FINAL COMMENT: Aerobic and anaerobic bottle received. Inspection of blood culture bottles indicates that an inadequate volume of blood may have been collected for the detection of sepsis. Alex Hines MD LAB MICROBIOLOGY - GENER AL ORDERABLES Final Result Performing Organization Address City/[facility]/ZIP Co de Phone Number [facility] [address], [place] [address], [place] [phone] [facility] [address] [facility] [address], [place] [address], [place] [phone] * (ABNORMAL) Creatine Kinase (06/22/2024 3:13 PM EST) Pathologist [facility] CK 12,274(H) 49 - 348 U/L 06/22/2024 4:01 PM EST [facility] Blood Structure of peripheral vein / Unknown Venipuncture / Unknown 06/22/2024 3:13 PM EST 06/22/2024 3:19 PM EST Sofía Hardy MD LAB BLOOD ORDERABLES Final Result [email or web address] LABORATORY [address] [place] [address], [place] * (ABNORMAL) BMP - Basic Metabolic Panel (06/22/2024 3:13 PM EST) Pathologist [facility] NA 136 135 - 145 mmol/L 06/22/2024 3:50 PM EST [facility] K 5.0 3.5 - 5.3 mmol/L 06/22/2024 3:50 PM EST [facility] Cl 99 98 - 107 mmol/L 06/22/2024 3:50 PM EST [facility] CO2 18(L) 22 - 32 mmol/L 06/22/2024 3:50 PM EST [facility] BUN 37(H) 7 - 23 mg/dL 06/22/2024 3:50 PM EST [facility] Creatinine 1.17 0.60 - 1.30 mg/dL 06/22/2024 3:50 PM EST [facility] Glucose 293(H) 65 - 99 mg/dL 06/22/2024 3:50 PM EST [facility] Calcium 8.3(L) 8.6 - 10.5 mg/dL 06/22/2024 3:50 PM EST [facility] Anion Gap 19(H) 5 - 15 06/22/2024 3:50 PM EST [facility] eGFR 81 >=60 mL/min/1. 73m2 06/22/2024 3:50 PM EST [facility] Comment:The estimated glomer ular filtration rate (eGFR) is calculated using a new formula developed by the NKF-ASN task force to eliminate race-based correction factors. The new formula uses serum/plasma creatinine, age, and gender to determine eGFR. A value below 60mls/min might indicate kidney disease and will be flagged. For additional information, see Merida et al, Am J Kidney Dis. 2021;79(2):268- 288, A Unifying Approach for GFR estimation: Recommendations of the NKF-ASN Task Force on Reassessing the Inclusion of Race in Diagnosing Kidney Disease . Blood Structure of peripheral vein / Unknown Venipuncture / Unknown 06/22/2024 3:13 PM EST 06/22/2024 3:19 PM EST Sofía Hardy MD LAB BLOOD ORDERABLES Final Result [facility] [address] [place] [address], * X-Ray Hand Left 3+ Views (06/22/2024 1:52 PM EST) Anatomical Region Laterality Modality Upper Extremities, Hand Left Computed Radiography 06/22/2024 2:05 PM EST Impressions 06/22/2024 2:06 PM EST No acute fracture or dislocation. Alignment and joint spaces are maintained. Soft tissues are within normal limits. If this radiology report contains a blank impression section, it is an incomplete radiology report. ??Please contact the interpreting radiologist or applicable radiology division as soon as possible to obtain the completed interpretation. ? Workstation ID: [id number] Narrative 06/22/2024 2:06 PM EST COMPARISON: ??None. ?? FINDINGS AND Resulting Agency Comment [id number] Procedure Note Antonia Wayne MD - 06/22/2024 COMPARISON: None. FINDINGS AND IMPRESSION: No acute fracture or dislocation. Alignment and joint spaces aremaintained. Soft tissues are within normal limits. If this radiology report contains a blank impression section, it is anincomplete radiology report. Please contact the interpreting radiologistor applicable radiology division as soon as possible to obtain thecompleted interpretation. Workstation ID: [id number] Sofía Hardy MD IMG XR PROCEDURES Final Res ult * ECG 12 lead (06/22/2024 1:31 PM EST) Ventricular Rate EKG 86 BPM MUSE EKG Atrial Rate 86 BPM MUSE EKG NJ Interval 132 ms MUSE EKG QRS Interval 90 ms MUSE EKG QT Interval 362 ms MUSE EKG QTC Interval 433 ms MUSE EKG P [place] 53 degrees MUSE EKG R [place] 30 degrees MUSE EKG T Wave [place] 33 degrees MUSE EKG 06/22/2024 1:31 PM EST 07/01/2024 12:59 PM EST Impressions MUSE EKG - 07/01/2024 12:59 PM EST NORMAL SINUS RHYTHM NORMAL ECG WHEN COMPARED WITH ECG OF 22-JUN-2024 08:12, (UNCONFIRMED) PREVIOUS ECG HAS UNDETERMINED RHYTHM, NEEDS REVIEW Confirmed by Ulises Thompson ([id number]) on 07/01/2024 12:59:17 PM us Sofía Hardy MD ECG ORDERABLES Final Resul t MUSE EKG * Lactic Acid, Plasma (06/22/2024 10:59 AM EST) Lactic Acid 1.6 0.5 - 1.9 mmol/L 06/22/2024 11:47 AM EST [facility] Blood Structure of peripheral vein / Unknown Venipuncture / Unknown 06/22/2024 10:59 AM EST 06/22/2024 11:17 AM EST us Sofía Hardy MD LAB BLOOD ORDERABLES Final Result Performing Organization Address [facility] de Phone Number [employer] [facility] CL[facility]ICAL PATH[facility]Y LABORATORY [address] [place] [address], * CT C-Spine WO Contrast (06/22/2024 8:55 AM EST) Anatomical Region Laterality Modality Spine, C-spine Computed Tomogra phy 06/22/2024 9:48 AM EST Impressions 06/22/2024 9:50 AM EST No acute fracture or traumatic malalignment of the cervical spine. If this radiology report contains a blank impression section, it is an incomplete radiology report. ??Please contact the interpreting radiologist or applicable radiology division as soon as possible to obtain the completed interpretation. ? Workstation ID: [id number] Up-to-date CT equipment and radiation dose reduction techniques were employed. CTDIvol: 26.2 - 70.4 mGy. DLP: 2128 mGy-cm. ??The following accession numbers are related to this dose report [id number]: [id number] Narrative 06/22/2024 9:50 AM EST COMPARISON: No prior images are available at the time of interpretation. FINDINGS: No acute fracture or traumatic malalignment of the cervical spine. ??Vertebral body height and alignment are normal. The dens is intact, the lateral masses of C1 are normally aligned, and the atlantodental interval is normal. No osseous narrowing of the spinal canal. No prevertebral soft tissue swelling. Visualized neck soft tissues are unremarkable. ?? Resulting Agency Comment [id number] Procedure Note Paulo Osuna, DO - 06/22/2024 COMPARISON: No prior images are available at the time of interpretation. FINDINGS: No acute fracture or traumatic malalignment of the cervical spine.Vertebral body height and alignment are normal. The dens is intact, thelateral masses of C1 are normally aligned, and the atlantodental intervalis normal. No osseous narrowing of the spinal canal. No prevertebral soft tissue swelling. Visualized neck soft tissues areunremarkable. IMPRESSION: No acute fracture or traumatic malalignment of the cervical spine. If this radiology report contains a blank impression section, it is anincomplete radiology report. Please contact the interpreting radiologistor applicable radiology division as soon as possible to obtain thecompleted interpretation. Workstation ID: [id number] Up-to-date CT equipment and radiation dose reduction techniques wereemployed. CTDIvol: 26.2 - 70.4 mGy. DLP: 2128 mGy-cm. The followingaccession numbers are related to this dose report [id number]: [id number] us Sofía Hardy MD IMG CT PROCEDURES Final Res ult * CT Head WO Contrast (06/22/2024 8:55 AM EST) Anatomical Region Laterality Modality Head and Neck Computed Tomogra phy 06/22/2024 9:45 AM EST Impressions 06/22/2024 9:48 AM EST No acute intracranial hemorrhage, large territorial infarction, or mass effect. If this radiology report contains a blank impression section, it is an incomplete radiology report. ??Please contact the interpreting radiologist or applicable radiology division as soon as possible to obtain the completed interpretation. ? Workstation ID: [id number] Up-to-date CT equipment and radiation dose reduction techniques were employed. CTDIvol: 26.2 - 70.4 mGy. DLP: 2128 mGy-cm. ??The following accession numbers are related to this dose report [id number]: [id number] Narrative 06/22/2024 9:48 AM EST TECHNIQUE: 3D volume-rendered reconstructions were generated at the acquisition workstation under my concurrent supervision. COMPARISON: There are no prior studies available at this time. FINDINGS: No acute territorial infarct, intra-axial or extra-axial collection, or mass effect. No midline shift. Configuration of the posterior fossa components is grossly maintained. Ventricles, sulci, and subarachnoid spaces are within normal limits. Orbits, sellar/parasellar structures and craniovertebral junction are unremarkable. No acute calvarial fracture. Small mucous retention cyst/polyp in the right maxillary sinus. ??Paranasal sinuses are otherwise clear. Mastoid air cells are well aerated. Resulting Agency Comment [id number] Procedure Note Paulo Osuna, DO - 06/22/2024 TECHNIQUE: 3D volume-rendered reconstructions were generated at the acquisitionworkstation under my concurrent supervision. COMPARISON: There are no prior studies available at this time. FINDINGS: No acute territorial infarct, intra-axial or extra-axial collection, ormass effect. No midline shift. Configuration of the posterior fossa components isgrossly maintained. Ventricles, sulci, and subarachnoid spaces are within normal limits. Orbits, sellar/parasellar structures and craniovertebral junction areunremarkable. No acute calvarial fracture. Small mucous retention cyst/polyp in the right maxillary sinus. Paranasalsinuses are otherwise clear. Mastoid air cells are well aerated. IMPRESSION: No acute intracranial hemorrhage, large territorial infarction, or masseffect. If this radiology report contains a blank impression section, it is anincomplete radiology report. Please contact the interpreting radiologistor applicable radiology division as soon as possible to obtain thecompleted interpretation. Workstation ID: [id number] Up-to-date CT equipment and radiation dose reduction techniques wereemployed. CTDIvol: 26.2 - 70.4 mGy. DLP: 2128 mGy-cm. The followingaccession numbers are related to this dose report [id number]: [id number] Sofía Hardy MD IMG CT PROCEDURES Final Res ult * ECG 12 lead (06/22/2024 8:12 AM EST) Ventricular Rate EKG 84 BPM MUSE EKG Atrial Rate 83 BPM MUSE EKG NJ Interval 140 ms MUSE EKG QRS Interval 84 ms MUSE EKG QT Interval 384 ms MUSE EKG QTC Interval 453 ms MUSE EKG P [place] 55 degrees MUSE EKG R [place] 28 degrees MUSE EKG T Wave [place] 50 degrees MUSE EKG 06/22/2024 8:12 AM EST 07/01/2024 12:59 PM EST Impressions MUSE EKG - 07/01/2024 12:59 PM EST SINUS RHYTHM NO PREVIOUS ECGS AVAILABLE Confirmed by Ulises Thompson ([id number]) on 07/01/2024 12:59:16 PM Sofía Hardy MD ECG ORDERABLES Final Resul t MUSE EKG * COVID-19, Flu A/B & RSV RNA PCR, Symptomatic (06/22/2024 8:10 AM EST) PCR, SARS CoV-2 RNA Not Detected Not Detected [facility] 06/22/2024 8:57 AM EST [facility] Comment:A Not Detected (Nega tive) test result is indicative of the absence of SARS-CoV-2 RNA at the level of LoD (Limit of Detection). A negative result does not rule out the possibility of COVID-19 and should not be used as the sole basis for treatment or patient management decisions. If COVID-19 is still suspected, based on exposure history together with other clinical findings, re-testing should be considered. Flu A RNA PCR Not Detected Not Detected [facility] 06/22/2024 8:57 AM EST [facility] Comment:Negative results do not preclude infection and should not be used as the sole basis for diagnosis, treatment or other patient management decisions. Negative results must be combined with clinical observations, patient history, and/or epidemiological information. Flu B RNA PCR Not Detected Not Detected [facility] 06/22/2024 8:57 AM EST [facility] Comment:Negative results do not preclude infection and should not be used as the sole basis for diagnosis, treatment or other patient management decisions. Negative results must be combined with clinical observations, patient history, and/or epidemiological information. RSV RNA PCR Not Detected Not Detected [facility] 06/22/2024 8:57 AM EST [facility] Comment:Negative results do not preclude infection and should not be used as the sole basis for diagnosis, treatment or other patient management decisions. Negative results must be combined with clinical observations, patient history, and/or epidemiological information. Swab (Nares) Non-Blood Collection / Unknown 06/22/2024 8:10 AM EST 06/22/2024 8:10 AM EST Narrative [facility] CLINICAL PATHOLOG[facility] LABORATORY - 06/22/2024 8:57 AM EST This test was developed, validated and its performance characteristics determined by [facility]. This test has not been cleared or approved by the U.S. Food and Drug Administration (FDA). FDA Policy for Diagnostic Tests for Coronavirus Disease-2019 during the Public Health Emergency issued August 04, 2019, is followed. us Sofía Hardy MD LAB BODY FLUIDS AND STOOLS ORDERABLES Final Result [facility] LABOR[facility] [address] [place] [address], * Ethanol (06/22/2024 8:08 AM EST) Ethanol <10 <10 mg/dL 06/22/2024 8:45 AM EST [facility] Blood Structure of peripheral vein / Unknown Venipuncture / Unknown 06/22/2024 8:08 AM EST 06/22/2024 8:12 AM EST Sofía Hardy MD LAB BLOOD ORDERABLES Final Result Performing Organization Address [facility] Co de Phone Number [employer] [facility] CL[facility]OLOG[facility] LABORATORY [address] [place] [address], [place] * (ABNORMAL) Creatine Kinase (06/22/2024 8:08 AM EST) CK 17,563(H) 49 - 348 U/L 06/22/2024 8:59 AM EST [facility] Blood Structure of peripheral vein / Unknown Venipuncture / Unknown 06/22/2024 8:08 AM EST 06/22/2024 8:12 AM EST Sofía Hardy MD LAB BLOOD ORDERABLES Final Result Performing Organization Address [facility] Co de Phone Number [facility]OLOG[facility] LABORATORY [address] [place] [address], [place] * Lipase (06/22/2024 8:08 AM EST) Lipase 27 13 - 60 U/L 06/22/2024 8:48 AM EST [facility] Blood Structure of peripheral vein / Unknown Venipuncture / Unknown 06/22/2024 8:08 AM EST 06/22/2024 8:12 AM EST Sofía Hardy MD LAB BLOOD ORDERABLES Final Result Performing Organization Address [facility] Co de Phone Number [facility]OLOG[facility] LABORATORY [address] [place] [address], [place] * (ABNORMAL) Lactic Acid (w/Repeat if >2) - Sepsis (06/22/2024 8:08 AM EST) Lactic Acid 2.7(H) 0.5 - 1.9 mmol/L 06/22/2024 8:41 AM EST [facility] Blood Structure of peripheral vein / Unknown Venipuncture / Unknown 06/22/2024 8:08 AM EST 06/22/2024 8:13 AM EST us Sofía Hardy MD LAB BLOOD ORDERABLES Final Result [facility] LAB[facility] [address] [place] [address], [place] * (ABNORMAL) CBC Auto Differential (06/22/2024 8:08 AM EST) WBC 10.9(H) 3.8 - 10.8 10*3/uL 06/22/2024 8:23 AM EST [facility] RBC 4.68 4.20 - 5.80 10*6/uL 06/22/2024 8:23 AM EST [facility] Hemoglobin 11.5(L) 13.2 - 17.1 g/dL 06/22/2024 8:23 AM EST [facility] Hematocrit 35.7(L) 38.5 - 50.0 % 06/22/2024 8:23 AM EST [facility] MCV 76.3(L) 80.0 - 100.0 fL 06/22/2024 8:23 AM EST [facility] MCH 24.6(L) 27.0 - 33.0 pg 06/22/2024 8:23 AM EST [facility] MCHC 32.2 32.0 - 36.0 g/dL 06/22/2024 8:23 AM EST [facility] RDW 15.3(H) 11.0 - 15.0 % 06/22/2024 8:23 AM EST [facility] Platelets 186 140 - 400 10*3/uL 06/22/2024 8:23 AM EST [facility] MPV 10.4 7.5 - 12.5 fL 06/22/2024 8:23 AM EST [facility] Neutrophil % 91.5 % 06/22/2024 8:23 AM EST [facility] Immature Grans % 0.4 0.0 - 0.9 % 06/22/2024 8:23 AM EST [facility] Lymphocyte % 4.1 % 06/22/2024 8:23 AM EST [facility] Monocyte % 3.9 % 06/22/2024 8:23 AM EST [facility] Eosinophil % 0.0 % 06/22/2024 8:23 AM EST [facility] Basophil % 0.1 % 06/22/2024 8:23 AM EST [facility] Neutrophil # 9.95(H) 1.50 - 7.80 10*3/uL 06/22/2024 8:23 AM EST [facility] Immature Grans # 0.04(H) <=0.03 10*3/uL 06/22/2024 8:23 AM EST [facility] Lymphocyte # 0.50(L) 0.85 - 3.90 10*3/uL 06/22/2024 8:23 AM EST [facility] Monocyte # 0.40 0.20 - 0.95 10*3/uL 06/22/2024 8:23 AM EST [facility] Eosinophil # <0.03 0.02 - 0.50 10*3/uL 06/22/2024 8:23 AM EST [facility] Basophil # <0.03 0.00 - 0.20 10*3/uL 06/22/2024 8:23 AM EST [facility] nRBC % 0.0 /100 WBCs 06/22/2024 8:23 AM EST [facility] nRBC # <0.01 <0.01 10*3/uL 06/22/2024 8:23 AM EST [facility] Blood Structure of peripheral vein / Unknown Venipuncture / Unknown 06/22/2024 8:08 AM EST 06/22/2024 8:13 AM EST us Sofía Hardy MD LAB BLOOD ORDERABLES Final Result [facility] [address] [place] [address], * (ABNORMAL) CMP - Comprehensive Metabolic Panel (06/22/2024 8:08 AM EST) NA 138 135 - 145 mmol/L 06/22/2024 8:48 AM EST [facility] K 4.7 3.5 - 5.3 mmol/L 06/22/2024 8:48 AM EST [facility] Cl 97(L) 98 - 107 mmol/L 06/22/2024 8:48 AM EST [facility] CO2 16(L) 22 - 32 mmol/L 06/22/2024 8:48 AM EST [facility] Anion Gap 25(H) 5 - 15 06/22/2024 8:48 AM EST [facility] Glucose 235(H) 65 - 99 mg/dL 06/22/2024 8:48 AM EST [facility] Creatinine 1.30 0.60 - 1.30 mg/dL 06/22/2024 8:48 AM EST [facility] Calcium 9.3 8.6 - 10.5 mg/dL 06/22/2024 8:48 AM EST [facility] Total Protein 8.1(H) 6.0 - 8.0 g/dL 06/22/2024 8:48 AM EST [facility] Albumin 4.5 3.5 - 5.2 g/dL 06/22/2024 8:48 AM EST [facility] Bilirubin, Total 0.5 0.2 - 1.2 mg/dL 06/22/2024 8:48 AM EST [facility] Alkaline Phosphatase 60 35 - 129 U/L 06/22/2024 8:48 AM EST [facility] AST 314(H) 10 - 40 U/L 06/22/2024 8:48 AM EST [facility] ALT 142(H) 10 - 40 U/L 06/22/2024 8:48 AM EST [facility] BUN 50(H) 7 - 23 mg/dL 06/22/2024 8:48 AM EST [facility] eGFR 72 >=60 mL/min/1. 73m2 06/22/2024 8:48 AM EST [facility] Comment:The estimated glomer ular filtration rate (eGFR) is calculated using a new formula developed by the NKF-ASN task force to eliminate race-based correction factors. The new formula uses serum/plasma creatinine, age, and gender to determine eGFR. A value below 60mls/min might indicate kidney disease and will be flagged. For additional information, see Merida et al, Am J Kidney Dis. 2021;79(2):268- 288, A Unifying Approach for GFR estimation: Recommendations of the NKF-ASN Task Force on Reassessing the Inclusion of Race in Diagnosing Kidney Disease . Globulin, Total 3.6 2.1 - 4.2 g/dL 06/22/2024 8:48 AM EST [facility] A/G Ratio 1.3(L) 1.5 - 3.0 06/22/2024 8:48 AM EST [facility] Blood Structure of peripheral vein / Unknown Venipuncture / Unknown 06/22/2024 8:08 AM EST 06/22/2024 8:12 AM EST us Sofía Hardy MD LAB BLOOD ORDERABLES Final Result [facility] [address] [place] [address], [place] * XR Chest Portable 1 View (06/22/2024 8:03 AM EST) Anatomical Region Laterality Modality Body Computed Radiogr aphy 06/22/2024 8:12 AM EST Impressions 06/22/2024 8:14 AM EST No acute pulmonary process or acute displaced fracture. If this radiology report contains a blank impression section, it is an incomplete radiology report. ??Please contact the interpreting radiologist or applicable radiology division as soon as possible to obtain the completed interpretation. ? Workstation ID: [id number] Narrative 06/22/2024 8:14 AM EST COMPARISON: None. FINDINGS: Lines/Tubes/Devices: None. Lungs: No consolidation or pulmonary edema. Pleura: No pleural effusion. No pneumothorax. Heart/Mediastinum: The cardiac and mediastinal contours are normal. Bones/Soft tissues: No acute osseous abnormality. Resulting Agency Comment [id number] Procedure Note Paulo Osuna DO - 06/22/2024 COMPARISON: None. FINDINGS: Lines/Tubes/Devices: None. Lungs: No consolidation or pulmonary edema. Pleura: No pleural effusion. No pneumothorax. Heart/Mediastinum: The cardiac and mediastinal contours are normal. Bones/Soft tissues: No acute osseous abnormality. IMPRESSION: No acute pulmonary process or acute displaced fracture. If this radiology report contains a blank impression section, it is anincomplete radiology report. Please contact the interpreting radiologistor applicable radiology division as soon as possible to obtain thecompleted interpretation. Workstation ID: [id number] us Sofía Hardy MD IMG XR PROCEDURES Final Res ult * HEART & VASCULAR - SCANNED (06/22/2024) Anatomical Region Laterality Modality Other us Onbase Scan Paras SCANNED PROCEDURES Final Resu lt documented in this encounter Visit Diagnoses Diagnosis Rhabdomyolysis- Primary Rhabdomyolysis Opioid use disorder, severe, dependence (HCC) [F11.20] Cocaine use disorder (HCC) [F14.10] Nondependent alcohol abuse Nondependent alcohol abuse, unspecified drinking behavior Cocaine use disorder ([facility]) Opioid use disorder Frostbite of both feet Fever Fever, unspecified T2DM (type 2 diabetes mellitus) ([facility]) Type II or unspecified type diabetes mellitus without mention of complication, not stated as uncontrolled AVRIL (obstructive sleep apnea) Obstructive sleep apnea (adult) (pediatric) Suicidal ideation Intentional drug overdose ([facility]) Poisoning by unspecified drug or medicinal substance documented in this encounter Admitting Diagnoses Diagnosis Rhabdomyolysis documented in this encounter Administered Medications Inactive Administered Medications - up to 3 most recent administrations Medication Order MAR Action Action Date Dose Rate Site acetaminophen (OFIRMEV) in 100 mL IVPB premix 1,000 mg 1,000 mg, intravenous, at 400 mL/hr, Administer over 15 Minutes, Once, On Sun06/22/24 at 1445, 1 dose New Bag/Syringe 06/22/2024 3:15 PM EST 1,000 mg 400 mL/hr acetaminophen (TYLENOL) tablet 650 mg 650 mg, oral, Every 6 hours PRN, headache, pain, fever, Starting on Sun06/22/24 at 1954, Until Sun06/25/24 at 2308 Given 06/24/2024 6:19 AM EST 650 mg Given 06/23/2024 8:01 PM EST 650 mg benztropine (COGENTIN) tablet 0.5 mg 0.5 mg, oral, Daily, First dose on Sun06/24/24 at 0900, Until Discontinued Given 06/24/2024 9:55 AM EST 0.5 mg benztropine (COGENTIN) tablet 0.5 mg 0.5 mg, oral, 2 times daily, First dose (after last modification) on Sun06/24/24 at 1700, Until Discontinued Given 06/25/2024 6:00 PM EST 0.5 mg Given 06/25/2024 8:46 AM EST 0.5 mg Given 06/24/2024 4:23 PM EST 0.5 mg dextrose (D50W) IV injection 12.5 g 12.5 g, intravenous, Every 15 min PRN, For blood glucose between 40 and 60, if the patient is NPO and/or non-responsive and an IV is in place., Starting on Sun06/22/24 at 1923, Until Sun06/25/24 at 2308 dextrose (D50W) IV injection 25 g 25 g, intravenous, Every 15 min PRN, For blood glucose less than 40, if the patient is NPO and/or non-responsive and an IV is in place., Starting on Sun06/22/24 at 1922, Until Sun06/25/24 at 2308 dextrose (GLUTOSE) gel 15 g 15 g, oral, Every 15 min PRN, For a blood glucose less than 70, in a conscious patient taking PO; May alternatively give 4 oz of non-diabetic juice., Starting on Sun06/22/24 at 1922, Until Sun06/25/24 at 2308, Recheck blood glucose every 15 minutes until greater than 100mg/dL. 0.2 g (200 mg) = 0.5 mL enoxaparin (LOVENOX) subcutaneous injection 40 mg 40 mg, subcutaneous, Daily, First dose on Sun06/22/24 at 1905, Until Discontinued Given 06/25/2024 5:59 PM EST 40 mg Left Lower Abdomen Given 06/24/2024 4:22 PM EST 40 mg Ri ght Lower Abdomen Given 06/23/2024 5:19 PM EST 40 mg Le ft Lower Abdomen folic acid (FOLVITE) tablet 1 mg 1 mg, oral, Daily, First dose on Sun06/24/24 at 0900, 3 doses, Last dose on Sun06/26/24 at 0900 Given 06/25/2024 8: 45 AM EST 1 mg Given 06/24/2024 9:55 AM EST 1 mg glucagon (GLUCAGEN) injection 1 mg 1 mg, subcutaneous, Every 15 min PRN, For blood glucose less than 60 if the patient is NPO and/or non-responsive and no IV is in place., Starting on Sun06/22/24 at 192, Until Sun06/25/24 at 2308, Reconstitute each 1 mg vial with 1 mL of Sterile Water for injection. haloperidoL (HALDOL) tablet 5 mg 5 mg, oral, Every 12 hours scheduled, First dose on Sun06/23/24 at 1800, Until Discontinued Given 06/25/2024 6: 00 PM EST 5 mg Given 06/25/2024 6:23 AM EST 5 mg Given 06/24/2024 6:49 PM EST 5 mg ibuprofen (MOTRIN) tablet 600 mg 600 mg, oral, Every 6 hours, First dose on Sun06/24/24 at 0615, 12 doses, Last dose on Sun06/27/24 at 0015 Given 06/25/2024 6:00 PM EST 600 mg Given 06/25/2024 1:03 PM EST 600 mg Given 06/25/2024 6:23 AM EST 600 mg insulin glargine-yfgn (SEMGLEE - 100 units/mL) injection 5 Units 5 Units, subcutaneous, Daily with breakfast, First dose on Sun06/24/24 at 0800, Until Discontinued Given 06/25/2024 8:46 AM EST 5 Units Left Upper Arm (Back ) Given 06/24/2024 7:22 AM EST 5 Units Le ft Deltoid insulin lispro (ADMELOG/HumaLOG - 100 units/mL) injection 1-5 Units 1-5 Units, subcutaneous, 3 times daily with meals, First dose on Sun06/23/24 at 0800, Until Discontinued, Blood Sugar Low Dose < 149 No Insulin 150-199 1 units 200-249 2 units 250-299 3 units 300-349 4 units >/= 350 5 units and call LIP promptly Administer within 30 minutes of fingerstick blood glucose. Given 06/23/2024 12:32 PM EST 3 Units Left Deltoid Given 06/23/2024 8:00 AM EST 3 Units Le ft Upper Arm (Back) insulin lispro (ADMELOG/HumaLOG - 100 units/mL) injection 1-5 Units 1-5 Units, subcutaneous, Nightly, First dose on Sun06/22/24 at 2100, Until Discontinued, Blood Sugar Low Dose < 149 No Insulin 150-199 1 units 200-249 2 units 250-299 3 units 300-349 4 units >/= 350 5 units and call LIP promptly Administer within 30 minutes of fingerstick blood glucose. Given 06/22/2024 11:01 PM EST 3 Units Right Lower Abdomen insulin lispro (ADMELOG/HumaLOG - 100 units/mL) injection 2-10 Units 2-10 Units, subcutaneous, 3 times daily with meals, First dose on Sun06/23/24 at 1700, Until Discontinued, Blood Sugar Medium Dose < 149 No Insulin 150-199 2 units 200-249 4 units 250-299 6 units 300-349 8 units >/= 350 10 units and call LIP promptly Administer within 30 minutes of fingerstick blood glucose. Given 06/25/2024 5:59 PM EST 8 Units Left Lower Abdomen Given 06/25/2024 8:46 AM EST 6 Units Le ft Upper Arm (Back) Given 06/24/2024 6:49 PM EST 8 Units Le ft Upper Arm (Back) lactated Ringer's (LR) bolus 1,000 mL 1,000 mL, intravenous, Once, On Sun06/22/24 at 0845, 1 dose New Bag/Syringe 06/22/2024 9:09 AM EST 1,000 mL lactated Ringer's (LR) bolus 1,000 mL 1,000 mL, intravenous, Once, On Sun06/22/24 at 0915, 1 dose New Bag/Syringe 06/22/2024 9:20 AM EST 1,000 mL lactated Ringer's (LR) premix infusion intravenous, at 150 mL/hr, Continuous, Starting on Sun06/22/24 at 0925, Until Sun06/22/24 at 1750 Rate/Dose Verify 06/22/2024 3:09 PM EST 150 mL/hr New Bag/Syringe 06/22/2024 10:58 AM EST 150 mL/ hr lactated Ringer's (LR) premix infusion intravenous, at 150 mL/hr, Continuous, Starting on Sun06/22/24 at 1755, Until Sun06/23/24 at 1426 New Bag/Syringe 06/22/2024 5:56 PM EST 150 mL/hr lactated Ringer's (LR) premix infusion intravenous, at 150 mL/hr, Continuous, Starting on Sun06/23/24 at 1415, Until Sun06/24/24 at 1430 Rate/Dose Verify 06/24/2024 1:16 PM EST 150 mL/hr New Bag/Syringe 06/24/2024 9:47 AM EST 150 mL/h r Rate/Dose Verify 06/24/2024 7:02 AM EST 150 mL/ hr potassium phosphate and sodium phosphate (PHOS-NAK) packet 2 packet 2 packet, oral, 3 times daily, First dose on Sun06/23/24 at 1200, 3 doses, Last dose on Sun06/23/24 at 2000, Administer with a full glass of water. May also dilute in juice. Avoid administration with dairy products. Given 06/23/2024 12:32 PM EST 2 packets sodium chloride 0.9% flush 2.5-10 mL 2.5-10 mL, intravenous, See admin instructions, Starting on Sun06/22/24 at 1902, Until Sun06/25/24 at 2308, Flush each lumen with a pulsatile motion with a minimum of 2.5 mL before and after use. Please note which lumen(s) have been flushed in comments section. sodium chloride 0.9% flush 2.5-10 mL 2.5-10 mL, intravenous, Every 12 hours scheduled, First dose on Sun06/22/24 at 2100, Until Discontinued, Flush each lumen with a pulsatile motion with a minimum of 2.5 mL every 12 hours. Please note which lumen(s) have been flushed in comments section. Given 06/25/2024 7:47 PM EST 10 mL Given 06/25/2024 9:00 AM EST 10 mL Given 06/23/2024 9:21 PM EST 10 mL sodium phosphate 30 mmol in 0.9% NaCl 250 mL IVPB 30 mmol, intravenous, at 41.7 mL/hr, Administer over 6 Hours, Once, On Sun06/23/24 at 1500, 1 dose, Room Temperature. New Bag/Syringe 06/23/2024 3:04 PM EST 30 mmol 41.7 mL/hr thiamine (VITAMIN B1) 250 mg in 0.9% NaCl 102.5 mL IVPB 250 mg, intravenous, Administer over 30 Minutes, Every 24 hours scheduled, First dose on Sun06/25/24 at 1400, 5 doses, Last dose on Sun06/29/24 at 0900, Refrigerate. thiamine (VITAMIN B1) 500 mg in 0.9% NaCl 100 mL IVPB premix 500 mg, intravenous, Administer over 30 Minutes, Every 8 hours scheduled, First dose on Sun06/23/24 at 1400, 6 doses, Last dose on Sun06/25/24 at 0600 New Bag/Syringe 06/25/2024 6:23 AM EST 500 mg New Bag/Syringe 06/24/2024 8:48 PM EST 500 mg New Bag/Syringe 06/24/2024 2:12 PM EST 500 mg thiamine mononitrate (VITAMIN B1) tablet 100 mg 100 mg, oral, Daily, First dose on Sun06/30/24 at 0900, Until Discontinued documented in this encounter Active and Recently Administered Medications Times are shown in EST. Scheduled Medication Order 06/23/2024 06/24/2024 06/25/2024 benztropine (COGENTIN) tablet 0.5 mg (CANCELED) 0.5 mg, oral, Daily, First dose on Sun06/24/24 at 0900, Until Discontinued 0955 (Given - Provider: Emani Jiménez RN) benztropine (COGENTIN) tablet 0.5 mg 0.5 mg, oral, 2 times daily, First dose (after last modification) on Sun06/24/24 at 1700, Until Discontinued 1623 (Given - Provider: Debbie Saba RN) 0846 (Given - Provider: Marika Bryan RN)1800 (Given - Provider: Maria De Jesus Thomas, OLI) enoxaparin (LOVENOX) subcutaneous injection 40 mg 40 mg, subcutaneous, Daily, First dose on Sun06/22/24 at 1905, Until Discontinued 1719 (Given - Provider: Martha Carcamo RN) 1622 (Given - Provider: Debbie Saba RN) 1759 (Given - Provider: Maria De Jesus Thomas, OLI) folic acid (FOLVITE) tablet 1 mg 1 mg, oral, Daily, First dose on Sun06/24/24 at 0900, 3 doses, Last dose on Sun06/26/24 at 0900 0955 (Given - Provider: Emani Jiménez RN) 0845 (Given - Provider: Marika Bryan RN) haloperidoL (HALDOL) tablet 5 mg 5 mg, oral, Every 12 hours scheduled, First dose on Sun06/23/24 at 1800, Until Discontinued 1800 (Given - Provider: Martha Carcamo RN) 0619 (Given - Provider: Emani Jiménez RN)1849 (Given - Provider: Nora Pittman RN) 0623 (Given - Provider: Marika Bryan RN)1800 (Given - Provider: Maria De Jesus Thomas, OLI) ibuprofen (MOTRIN) tablet 600 mg 600 mg, oral, Every 6 hours, First dose on Sun06/24/24 at 0615, 12 doses, Last dose on Sun06/27/24 at 0015 0619 (Given - Provider: Emani Jiménez RN)1215 (Not Given - Provider: Emani Jiménez RN - Reason: Patient/family refused)1414 (Given - Provider: Emani Jiménez RN)1849 (Given - Provider: Nora Pittman RN) 0015 (Not Given - Provider: Geni Corado RN - Reason: Patient/family refused - Comment: Pt sleeping and denied pain at this time.)0623 (Given - Provider: Marika Bryan RN)1303 (Given - Provider: Marika Bryan RN)1800 (Given - Provider: Maria De Jesus Thomas RN) insulin glargine-yfgn (SEMGLEE - 100 units/mL) injection 5 Units 5 Units, subcutaneous, Daily with breakfast, First dose on Sun06/24/24 at 0800, Until Discontinued 0722 (Given - Provider: Emani Jiménez RN) 0846 (Given - Provider: Marika Bryan RN) insulin lispro (ADMELOG/HumaLOG - 100 units/mL) injection 1-5 Units (CANCELED) 1-5 Units, subcutaneous, 3 times daily with meals, First dose on Sun06/23/24 at 0800, Until Discontinued, Blood Sugar Low Dose < 149 No Insulin 150-199 1 units 200-249 2 units 250-299 3 units 300-349 4 units >/= 350 5 units and call LIP promptly Administer within 30 minutes of fingerstick blood glucose. 0800 (Given - Provider: Cyndi Lopez RN)1232 (Given - Provider: Nury Carvajal RN) insulin lispro (ADMELOG/HumaLOG - 100 units/mL) injection 2-10 Units 2-10 Units, subcutaneous, 3 times daily with meals, First dose on Sun06/23/24 at 1700, Until Discontinued, Blood Sugar Medium Dose < 149 No Insulin 150-199 2 units 200-249 4 units 250-299 6 units 300-349 8 units >/= 350 10 units and call LIP promptly Administer within 30 minutes of fingerstick blood glucose. 1718 (Given - Provider: Martha Carcamo RN) 0722 (Given - Provider: Emani Jiménez RN)1247 (Given - Provider: Emani Jiménez, OLI)184 (Given - Provider: Nora Pittman, RN) 0846 (Given - Provider: Marika Bryan, RN)1200 (Not Given - Provider: Marika Bryan RN - Reason: Order parameters not met - Comment: bs of 156 taken after pt ate lunch)175 (Given - Provider: Maria De Jesus Thomas, RN) potassium phosphate and sodium phosphate (PHOS-NAK) packet 2 packet (CANCELED) 2 packet, oral, 3 times daily, First dose on Sun06/23/24 at 1200, 3 doses, Last dose on Sun06/23/24 at 2000, Administer with a full glass of water. May also dilute in juice. Avoid administration with dairy products. 1232 (Given - Provider: Nury Carvajal RN) sodium chloride 0.9% flush 2.5-10 mL(Linked Group 1) 2.5-10 mL, intravenous, See admin instructions, Starting on Sun06/22/24 at 1902, Until Sun06/25/24 at 2308, Flush each lumen with a pulsatile motion with a minimum of 2.5 mL before and after use. Please note which lumen(s) have been flushed in comments section. sodium chloride 0.9% flush 2.5-10 mL(Linked Group 1) 2.5-10 mL, intravenous, Every 12 hours scheduled, First dose on Sun06/22/24 at 2100, Until Discontinued, Flush each lumen with a pulsatile motion with a minimum of 2.5 mL every 12 hours. Please note which lumen(s) have been flushed in comments section. 08 (Given - Provider: Cyndi Lopez RN)2120 (Given - Provider: Martha Carcamo, OLI) 09 (Not Given - Provider: Emani Jiménez RN - Reason: Line In Use)1930 (Not Given - Provider: Nora Pittman, OLI - Reason: Line In Use) 09 (Given - Provider: Marika Bryan, OLI)1946 (Given - Provider: Maria De Jesus Thomas, RN) sodium phosphate 30 mmol in 0.9% NaCl 250 mL IVPB (COMPLETED) 30 mmol, intravenous, at 41.7 mL/hr, Administer over 6 Hours, Once, On Sun06/23/24 at 1500, 1 dose, Room Temperature. 1504 (New Bag/Syringe - Provider: Nury Carvajal RN)2120 (Stopped - Provider: Martha Carcamo RN) thiamine (VITAMIN B1) 250 mg in 0.9% NaCl 102.5 mL IVPB(Linked Group 2) 250 mg, intravenous, Administer over 30 Minutes, Every 24 hours scheduled, First dose on Sun06/25/24 at 1400, 5 doses, Last dose on Sun06/29/24 at 0900, Refrigerate. 1400 (Not Given - Provider: Marika Bryan RN - Reason: Other - See Comment - Comment: Med not available) thiamine (VITAMIN B1) 500 mg in 0.9% NaCl 100 mL IVPB premix (COMPLETED)(Linked Group 2) 500 mg, intravenous, Administer over 30 Minutes, Every 8 hours scheduled, First dose on Sun06/23/24 at 1400, 6 doses, Last dose on Sun06/25/24 at 0600 1340 (New Bag/Syringe - Provider: Nury Carvajal RN)1421 (Stopped - Provider: Nury Carvajal RN)2122 (New Bag/Syringe - Provider: Martha Carcamo RN)2152 (Stopped - Provider: Martha Carcamo RN) 0619 (New Bag/Syringe - Provider: Emani Jiménez RN)0712 (Stopped - Provider: Emani Jiménez RN)1412 (New Bag/Syringe - Provider: Emani Jiménez RN)1442 (Stopped - Provider: Debbie Saba RN)2048 (New Bag/Syringe - Provider: Nora Pittman RN)2129 (Stopped - Provider: Nora Pittman RN) 0623 (New Bag/Syringe - Provider: Marika Bryan RN)0700 (Stopped - Provider: Marika Bryan RN) thiamine mononitrate (VITAMIN B1) tablet 100 mg(Linked Group 2) 100 mg, oral, Daily, First dose on Sun06/30/24 at 0900, Until Discontinued Continuous Medication Order 06/23/2024 06/24/2024 06/25/2024 lactated Ringer's (LR) premix infusion (CANCELED) intravenous, at 150 mL/hr, Continuous, Starting on Sun06/23/24 at 1415, Until Sun06/24/24 at 1430 1415 (Not Given - Provider: Nury Carvajal RN - Reason: See Provider Order - Comment: check the previous order. Pt has running LR @150ml/hr already)2120 (New Bag/Syringe - Provider: Martha Carcamo RN) 0339 (Rate/Dose Verify - Provider: Emani Jiménez RN)0414 (New Bag/Syringe - Provider: Emani Jiménez RN)0702 (Rate/Dose Verify - Provider: Emani Jiménez RN)0947 (New Bag/Syringe - Provider: Emani Jiménez RN)1316 (Rate/Dose Verify - Provider: Emani Jiménez RN)1432 (Stopped - Provider: Emani Jiménez RN) PRN Medication Order 06/23/2024 06/24/2024 06/25/2024 acetaminophen (TYLENOL) tablet 650 mg 650 mg, oral, Every 6 hours PRN, headache, pain, fever, Starting on Sun06/22/24 at 1954, Until Sun06/25/24 at 2308 2000 (Given - Provider: Martha Carcamo RN) 0619 (Given - Provider: Emani Jiménez RN) dextrose (D50W) IV injection 12.5 g(Linked Group 3) 12.5 g, intravenous, Every 15 min PRN, For blood glucose between 40 and 60, if the patient is NPO and/or non-responsive and an IV is in place., Starting on Sun06/22/24 at 1923, Until Sun06/25/24 at 2308 dextrose (D50W) IV injection 25 g(Linked Group 3) 25 g, intravenous, Every 15 min PRN, For blood glucose less than 40, if the patient is NPO and/or non-responsive and an IV is in place., Starting on Sun06/22/24 at 192, Until Sun06/25/24 at 2308 dextrose (GLUTOSE) gel 15 g(Linked Group 3) 15 g, oral, Every 15 min PRN, For a blood glucose less than 70, in a conscious patient taking PO; May alternatively give 4 oz of non-diabetic juice., Starting on Sun06/22/24 at 1923, Until Sun06/25/24 at 2308, Recheck blood glucose every 15 minutes until greater than 100mg/dL. 0.2 g (200 mg) = 0.5 mL glucagon (GLUCAGEN) injection 1 mg(Linked Group 3) 1 mg, subcutaneous, Every 15 min PRN, For blood glucose less than 60 if the patient is NPO and/or non-responsive and no IV is in place., Starting on Sun06/22/24 at 1923, Until Sun06/25/24 at 2308, Reconstitute each 1 mg vial with 1 mL of Sterile Water for injection. Linked Groups Order Group 1: IV Peripheral Line Care (CANCELED) Until discontinued, Starting on Sun06/22/24 at 1903, Until Specified, Insert/Replace: 96 hours for non-flexion, sterile IVs, 48 hours for flexion IVs, and 24 hours for non-sterile field IVs, Blood Draw: With insertion only And sodium chloride 0.9% flush 2.5-10 mLJump to med 2.5-10 mL, intravenous, See admin instructions, Starting on Sun06/22/24 at 1902, Until Sun06/25/24 at 2308, Flush each lumen with a pulsatile motion with a minimum of 2.5 mL before and after use. Please note which lumen(s) have been flushed in comments section. And sodium chloride 0.9% flush 2.5-10 mLJump to med 2.5-10 mL, intravenous, Every 12 hours scheduled, First dose on Sun06/22/24 at 2100, Until Discontinued, Flush each lumen with a pulsatile motion with a minimum of 2.5 mL every 12 hours. Please note which lumen(s) have been flushed in comments section. Group 2: thiamine (VITAMIN B1) 500 mg in 0.9% NaCl 100 mL IVPB premix (COMPLETED)Jump to med 500 mg, intravenous, Administer over 30 Minutes, Every 8 hours scheduled, First dose on Sun06/23/24 at 1400, 6 doses, Last dose on Sun06/25/24 at 0600 Followed by thiamine (VITAMIN B1) 250 mg in 0.9% NaCl 102.5 mL IVPBJump to med 250 mg, intravenous, Administer over 30 Minutes, Every 24 hours scheduled, First dose on Sun06/25/24 at 1400, 5 doses, Last dose on Sun06/29/24 at 0900, Refrigerate. Followed by thiamine mononitrate (VITAMIN B1) tablet 100 mgJump to med 100 mg, oral, Daily, First dose on Sun06/30/24 at 0900, Until Discontinued Group 3: dextrose (GLUTOSE) gel 15 gJump to med 15 g, oral, Every 15 min PRN, For a blood glucose less than 70, in a conscious patient taking PO; May alternatively give 4 oz of non-diabetic juice., Starting on Sun06/22/24 at 1922, Until Sun06/25/24 at 2308, Recheck blood glucose every 15 minutes until greater than 100mg/dL. 0.2 g (200 mg) = 0.5 mL Or dextrose (D50W) IV injection 12.5 gJump to med 12.5 g, intravenous, Every 15 min PRN, For blood glucose between 40 and 60, if the patient is NPO and/or non-responsive and an IV is in place., Starting on Sun06/22/24 at 1922, Until Sun06/25/24 at 2308 Or dextrose (D50W) IV injection 25 gJump to med 25 g, intravenous, Every 15 min PRN, For blood glucose less than 40, if the patient is NPO and/or non-responsive and an IV is in place., Starting on Sun06/22/24 at 1922, Until Sun06/25/24 at 2308 Or glucagon (GLUCAGEN) injection 1 mgJump to med 1 mg, subcutaneous, Every 15 min PRN, For blood glucose less than 60 if the patient is NPO and/or non-responsive and no IV is in place., Starting on Sun06/22/24 at 1922, Until Sun06/25/24 at 2308, Reconstitute each 1 mg vial with 1 mL of Sterile Water for injection. documented in this encounter Additional Health Concerns Infection Onset Date Last Indicated Resolved Time R/O Respiratory Virus Infection 06/22/2024 06/22/2024 8:57 AM EST R/O Influenza 06/22/2024 06/22/2024 06/22/2024 8:5 7 AM EST COVID-19 - Suspected infection 06/22/2024 06/22/2024 06/22/2024 8:57 AM EST documented as of this encounter Care Teams Financial Internship Relationship Specialty Start Date End Date Dayne Dubose [address] [place] [address] PCP - General 06/25/24 documented as of this encounter
--- OUTSIDE RECORDS SUMMARY | 2024-07-03 15:05 | XMS_ITS | Clinical Summary ---
Author Organization [facility] Address [address] [place] [address] Care Team Providers Care Pocket Closer Name Role Phone Dayne Dubose Primary Care Provider [phone] Allergies Active Allergy Reactions Criticality Noted Date Comments Codeine Unknown Medium 06/22/2024 Medications metFORMIN (GLUCOPHAGE) 1,000 mg tablet Take 1,000 mg by mouth 2 times a day with meals. 03/03/20 24 Active haloperidoL (HALDOL) 10 mg tablet Take 10 mg by mouth 2 times a day. 03/03/20 24 Active acetaminophen (TYLENOL) 325 mg tablet Take 2 tablets (650 mg total) by mouth every 6 hours as needed for headache, pain or fever. 30 tablet 06/25/19 25 Active benztropine (COGENTIN) 0.5 mg tablet Take 1 tablet (0.5 mg total) by mouth 2 times a day. 30 tablet 06/25/19 25 Active folic acid (FOLVITE) 1 mg tablet Take 1 tablet (1 mg total) by mouth once a day for 1 dose. 1 tablet 06/26/19 25 Active thiamine HCl (VITAMIN B1) 100 mg tablet Take 1 tablet (100 mg total) by mouth once a day. 30 tablet 06/25/19 25 Active risperiDONE (RisperDAL M-TAB) 0.5 mg disintegrating tablet Dissolve 0.5 mg in the mouth every 4 hours as needed for agitation. Discontinu ed(Error) propranoloL (INDERAL) 10 mg tablet Take 10 mg by mouth 2 times a day. 03/03/20 24 025 Discontinu ed(Error) melatonin 3 mg tablet Take 6 mg by mouth nightly as needed for sleep. 03/03/20 025 Discontinu ed(Error) docusate sodium (COLACE) 100 mg capsule Take 100 mg by mouth 2 times a day as needed for constipation . Discontinu ed(Error) cloNIDine (CATAPRES) 0.1 mg tablet Take 0.1 mg by mouth nightly as needed. 03/03/20 Discontinu ed(Error) busPIRone (BUSPAR) 15 mg tablet Take 7.5 mg by mouth 3 times a day. Discontinu ed(Error) benztropine (COGENTIN) 1 mg tablet Take 1 mg by mouth every night. 03/03/20 Discontinu ed(Error) QUEtiapine (SEROquel) 25 mg tablet Take 25 mg by mouth nightly. Discontinu ed(Stop Taking at Discharge) ibuprofen (MOTRIN) 600 mg tablet Take 1 tablet (600 mg total) by mouth every 6 hours for 7 doses. 7 tablet 06/25/19 Active Problems Problem Noted Date Diagnosed Date Tobacco use disorder 06/22/2024 Obesity 06/22/2024 Nondependent alcohol abuse 06/22/2024 Assessment & Plan (06/24/2024 3:54 PM EST): See intentional drug overdose discussion. Assessment & Plan (06/23/2024 2:36 PM EST): See intentional drug overdose discussion. Cocaine use disorder 06/22/2024 Assessment & Plan (06/24/2024 3:54 PM EST): See intentional drug overdose discussion. Assessment & Plan (06/23/2024 2:36 PM EST): See intentional drug overdose discussion. Opioid use disorder 06/22/2024 Assessment & Plan (06/24/2024 3:54 PM EST): See intentional drug overdose discussion. History of polysubstance use disorder (alcohol, cocaine, opioids), last injection drug use 06/21/24. Patient was previously in a drug rehab program before being discharged to [facility], more recently he is homeless and unable to obtain his psychiatric medications. At time of admission, he was agreeable to meeting with addiction psychiatry. Stopped CIIL protocol- not scoring C/w folic acid supplementation High-dose thiamine: Thiamine 500 mg every 8 hours x 2 days then 250 mg IV daily followed by p.o. supplementation Follow-up toxicology screen -Addiction psychiatry consulted and following Assessment & Plan (06/23/2024 2:36 PM EST): See intentional drug overdose discussion. History of polysubstance use disorder (alcohol, cocaine, opioids), last injection drug use 06/21/24. Patient was previously in a drug rehab program before being discharged to [facility], more recently he is homeless and unable to obtain his psychiatric medications. At time of admission, he was agreeable to meeting with addiction psychiatry. Plan Start CIWA protocol Add folic acid supplementation High-dose thiamine: Thiamine 500 mg every 8 hours x 2 days then 250 mg IV daily followed by p.o. supplementation Follow-up toxicology screen -Addiction psychiatry consulted, email sent. Frostbite of both feet 06/22/2024 Assessment & Plan (06/24/2024 3:54 PM EST): This admission, in the ED patient was hypothermic to 90 5.1F with exam noting bilateral toes were dusky. Plastic surgery was consulted for concern of bilateral foot frostbite, recommended no acute surgical intervention, gentle rewarming. He was placed on Kayla hugger and quickly achieved normothermia. Noted to have blisters on bilateral feet, with no signs of active infection. -Plastic team evaluated the wound, plan for plastic surgery reevaluation on 06/25 versus 06/26 -Continue fluffs between toes and loose Kerlix wraps -school resource officer consulted Assessment & Plan (06/23/2024 2:36 PM EST): This admission, in the ED patient was hypothermic to 90 5.1F with exam noting bilateral toes were dusky. Plastic surgery was consulted for concern of bilateral foot frostbite, recommended no acute surgical intervention, gentle rewarming. He was placed on Kayla hugger and quickly achieved normothermia. Today: Blisters on bilateral feet. Are closed at this time. No signs of active infection. Plan -Plan for plastic surgery reevaluation on 06/25 versus 06/26 -Continue fluffs between toes and loose Kerlix wraps T2DM (type 2 diabetes mellitus) 06/22/2024 Assessment & Plan (06/24/2024 3:54 PM EST): History of T2DM, managed with metformin 1000 mg p.o. twice daily, though patient has not been able to fill medications recently. At time of admission, glucose was in the 200s. Diabetic diet C/w Lantus 5 units nightly C/w medium dose insulin sliding scale HOLD metformin -Follow-up hemoglobin A1c -Continue LDISS ACHS -HOLDING home metformin 1000 mg p.o. twice daily Assessment & Plan (06/23/2024 2:36 PM EST): History of T2DM, managed with metformin 1000 [...] p.o. twice daily AVRIL (obstructive sleep apnea) 06/22/2024 Assessment & Plan (06/24/2024 3:54 PM EST): History of AVRIL, not on CPAP. Assessment & Plan (06/23/2024 2:36 PM EST): History of AVRIL, not on CPAP. Cardiomegaly 06/22/2024 Suicidal ideation 06/22/2024 Assessment & Plan (06/24/2024 3:54 PM EST): See intentional drug overdose discussion. Assessment & Plan (06/23/2024 2:36 PM EST): See intentional drug overdose discussion. Intentional drug overdose 06/22/2024 Assessment & Plan (06/24/2024 3:54 PM EST): History of polysubstance use disorder (alcohol, cocaine, opioids), who presented to [facility] ED on 06/22/2024 after being found [...] Follow-up toxicology screen Follow-up addiction medicine consultation Assessment & Plan (06/23/2024 2:36 PM EST): History of polysubstance use disorder (alcohol, cocaine, opioids), who presented to [facility] ED on 06/22/2024 after being found [...] Follow-up toxicology screen Follow-up addiction medicine consultation Resolved Problems Problem Noted Date Diagnosed Date Resolved Date Rhabdomyolysis 06/22/2024 06/25/2024 Assessment & Plan (06/24/2024 3:54 PM EST): Pt presented on 06/22 after being found [...] up with PO intake Continue regular diet Assessment & Plan (06/23/2024 2:36 PM EST): Presented on 06/22 after being found down outside after an intentional overdose with alcohol, crack cocaine and fentanyl. Found to be hypothermic on presentation. Unknown downtime. Labs significant for significant elevated CK to 17,563 on admission. Imaging negative. Started on IV fluid resuscitation which was continued. Today: Renal function remained stable. And CKs downtrending nicely. 7400 today down from 9500 yesterday. Plan Continue trending CK every 12 hours Trend renal function daily Continue IV fluids at current rates Continue regular diet Fever 06/22/2024 06/25/2024 Assessment & Plan (06/24/2024 3:54 PM EST): Initially hypothermic secondary to exposure. Later febrile with a Tmax of 101.3. Mild leukocytosis to 10.9 on admission down trended quickly. CXR unremarkable, CT head without contrast unremarkable, CT C-spine without contrast showed no acute fractures or malalignment, x-ray left hand unremarkable. Given Td vaccination. UA showed 3+ glucose 1+ ketones 2+ blood no WBCs no RBCs no bacteria. Antibiotics held and patient is now afebrile. -Follow-up blood cultures: No growth to date -Continue trending CBC daily Continue to hold antibiotics and monitor. Assessment & Plan (06/23/2024 2:36 PM EST): Initially hypothermic secondary to exposure. Later febrile with a Tmax of 101.3. Mild leukocytosis to 10.9 on admission down trended quickly. CXR unremarkable, CT head without contrast unremarkable, CT C-spine without contrast showed no acute fractures or malalignment, x-ray left hand unremarkable. Given Td vaccination. UA showed 3+ glucose 1+ ketones 2+ blood no WBCs no RBCs no bacteria. Antibiotics held and patient is now afebrile. Today: Remains afebrile. No indication for antibiotics at this time. Will continue to monitor. Plan -Follow-up blood cultures: No growth to date -Continue trending CBC daily Continue to hold antibiotics and monitor. Encounters Date Type Department Care Team Description 06/22/2024 7:39 AM EST - 06/25/2024 9:01 PM EST Hospital Encounter [facility] Emergency Department [address] [place] [address] Sofía Hardy MD Darling, Chad E, MD Delomba, MD Hernandez Goins Ryan H, MD Jha, MD Zuleyma Rhabdomyolysis (Primary Dx); Opioid use disorder, severe, dependence (HCC) [F11.20]; Cocaine use disorder (HCC) [F14.10] Discharge Disposition: Psychiatric Hospital (INPT Psych facility/unit) (65) from Last 3 Months Immunizations Immunization Administration Dates Next Due Covid-19 Monovalent Vaccine, Moderna, mRNA, PF 0 06/21/2021,09/10/2020 INFLUENZA, SPLIT VIRUS, TRIVALENT, PF 05/03/2017 Influenza, Trivalent, MDV, Injectable 03/17/2011 ,02/18/2011 PPD Test 05/26/2011,05/24/2011 Pneumococcal Polysaccharide Vaccine, 23 Valent 0 05/24/2011 Tetanus Toxoid, Reduced Diph theria Toxoid, and Acellular Pertussis Vaccine, Adsorbed 08/06/2022,05/24/2011 Tetanus and Diphtheria Toxoi ds, Adsorbed, Preservative Free, for Adult Use (5 Lf of Tetanus Toxoid and 2 Lf of Diphtheria Toxoid) 06/22/2024 Social History Tobacco Use Types Packs/Day Years Used Date Smoking Tobacco: Never Assessed Sex and Gender Information Value Date Recorded Sex Assigned at Not on file Legal Sex Male 7:34 AM EST Gender Identity Not on file Sexual Orientation Not on file Last Filed Vital Signs Vital Sign Reading [...] - - Body Mass Index - - Plan of Treatment Health Maintenance Due Date Last Done Comments Ophthalmology Exam 1995 Urine Microalbumin 1995 Varicella Vaccines (1 of 2 - 13+ 2-dose series) 1998 Hepatitis B Vaccines (1 of 3 - 19+ 3-dose series) 02/04/2004 Pneumococcal Vaccine: Pediat shelly (0-5 Years) and At-Risk Patients (6-50 Years) (2 of 2 - PCV) 05/24/2012 05/24/2011 COVID-19 Vaccine (3 - 2023-2 5 season) 2024 06/21/2021, 09/10/2020 Influenza Vaccine (#1) 2024 7, 03/17/2011, 02/18/2011 Alcohol/Substance Use Screening 05/21/2024 Depression Screening and Follow-Up 05/21/2024 [employer] Natalia ual Screening 05/21/2024 Hemoglobin A1C 12/21/2024 06/23/2024 Basic Metabolic Panel 06/25/2025 06/25/2024 , 06/24/2024, 06/23/2024, Additional history exists DTaP,Tdap,and Td Vaccines (4 - Td or Tdap) 06/22/2034 06/22/2024, 08/06/2022, 05/24/2011 RSV Vaccine (60+ years old a nd patients) (1 - 1-dose 75+ series) 02/04/2060 HIV Screening Completed 06/23/2024 Hepatitis C Screening Completed 06/23/2024 Procedures * Due to [place] state law, this organization might not be sharing negative HIV tests. Procedure Name Priority Date/Time Associated Diagnosis Comments CK Timed 06/25/2024 7:41 PM EST POCT GLUCOSE Routine 06/25/2024 5:00 PM EST POCT GLUCOSE Routine 06/25/2024 12:59 PM EST POCT GLUCOSE Routine 06/25/2024 8:27 AM EST CK Timed 06/25/2024 6:41 AM EST PHOSPHORUS Routine 06/25/2024 6:41 AM EST MAGNESIUM Routine 06/25/2024 6:41 AM EST BASIC METABOLIC PANEL Routine 06/25/2024 6:41 AM EST CBC AUTO DIFFERENTIAL Routine 06/25/2024 6:41 AM EST POCT GLUCOSE Routine 06/24/2024 10:09 PM EST CK Timed 06/24/2024 7:45 PM EST POCT GLUCOSE Routine 06/24/2024 6:46 PM EST POCT GLUCOSE Routine 06/24/2024 12:44 PM EST POCT GLUCOSE Routine 06/24/2024 7:16 AM EST CK Timed 06/24/2024 6:07 AM EST PHOSPHORUS Routine 06/24/2024 6:07 AM EST MAGNESIUM Routine 06/24/2024 6:07 AM EST BASIC METABOLIC PANEL Routine 06/24/2024 6:07 AM EST CBC AUTO DIFFERENTIAL Routine 06/24/2024 6:07 AM EST CK Timed 06/23/2024 8:21 PM EST POCT GLUCOSE Routine 06/23/2024 4:57 PM EST UA TIGER TOP Routine 06/23/2024 4:20 PM EST EXTRA TUBES Routine 06/23/2024 4:20 PM EST PROPOXYPHENE SCREEN, URINE STAT 06/23/2024 4:11 PM EST METHADONE SCREEN W/CONFIRMATION, URINE STAT 06/23/2024 4:11 PM EST BENZODIAZEPINE QUALITATIVE SCREEN, URINE STAT 06/23/2024 4:11 PM EST BARBITURATE SCREEN, URINE STAT 06/23/2024 4:11 PM EST PHENCYCLIDINE (PCP) SCREEN, URINE STAT 06/23/2024 4:11 PM EST MARIJUANA (THC) SCREEN, URINE STAT 06/23/2024 4:11 PM EST MORPHINE AND CODEINE CONFIRMATION, URINE STAT 06/23/2024 4:11 PM EST COCAINE SCREEN, URINE STAT 06/23/2024 4:11 PM EST AMPHETAMINE SCREEN, URINE STAT 06/23/2024 4:11 PM EST POCT GLUCOSE Routine 06/23/2024 12:22 PM EST POCT GLUCOSE Routine 06/23/2024 7:50 AM EST FOLATE STAT Add-on 06/23/2024 7:46 AM EST VITAMIN B12 STAT Add-on 06/23/2024 7:46 AM EST TSH REFLEX FREE T4 STAT Add-on 06/23/2024 7: 46 AM EST VITAMIN B12 STAT Add-on 06/23/2024 7:46 AM EST HEMOGLOBIN A1C Routine 06/23/2024 7:46 AM EST CK Timed 06/23/2024 7:46 AM EST PHOSPHORUS Routine 06/23/2024 7:46 AM EST MAGNESIUM Routine 06/23/2024 7:46 AM EST BASIC METABOLIC PANEL Routine 06/23/2024 7:46 AM EST CBC AUTO DIFFERENTIAL Routine 06/23/2024 7:45 AM EST HEPATITIS C ANTIBODY W/REFLEX TO HCV RNA, QUANTITATIVE PCR Routine 06/23/2024 7:44 AM EST CK Timed 06/23/2024 12:13 AM EST POCT GLUCOSE Routine 06/22/2024 10:19 PM EST NAVARRO TOP, URN Routine 06/22/2024 7:38 PM EST UA/CULTURE REFLEX Routine 06/22/2024 7:3 8 PM EST URINALYSIS W/REFLEX TO MICROSCOPIC & CULTURE Routine 06/22/2024 7:38 PM EST BLOOD CULTURE STAT 06/22/2024 6:42 [...] PCR, SYMPTOMATIC STAT 06/22/2024 8:10 AM EST ETHANOL STAT 06/22/2024 8:08 AM EST CK STAT 06/22/2024 8:08 AM EST LIPASE STAT 06/22/2024 8:08 AM EST LACTIC ACID, PLASMA W/ REPEAT STAT 06/22/2024 8:08 AM EST CBC AUTO DIFFERENTIAL STAT 06/22/2024 8:08 AM EST COMPREHENSIVE METABOLIC PANEL STAT 06/22/2024 8:08 AM EST XR CHEST PORTABLE 1 VIEW STAT 06/22/2024 8:03 AM EST HEART & VASCULAR - SCANNED 06/22/2024 from Last 3 Months Results * Due to [place] state law, this organization might not be sharing negative HIV tests. * (ABNORMAL) Creatine Kinase (06/25/2024 7:41 PM EST) Only the most recent of9 resultswithin the time period is included. CK 1,115(H) 49 - 348 U/L 06/25/2024 8:35 PM EST [facility] Blood Structure of peripheral vein / Unknown Venipuncture / Unknown 06/25/2024 7:41 PM EST 06/25/2024 8:05 PM EST us Quintin Ng MD LAB BLOOD ORDERABLES Final Res ult [facility] [address] [place] [address], [place] * (ABNORMAL) POCT Glucose, interfaced (06/25/2024 5:00 PM EST) Only the most recent of11 resultswithin the time period is included. Glucose, POCT 312(H) 70 - 99 mg/dL 06/25/2024 5:01 PM EST [facility] Comment: The automatic hemmer has not determined the efficacy of this test in Critically ill patients. ??[facility] defines Critically ill patients for the purpose [...] POCT ORDERABLES - DEVICE Fin al Result [facility] [address] [place] [address], [place] * (ABNORMAL) CBC Auto Differential (06/25/2024 6:41 AM EST) Only the most recent of4 resultswithin the time period is included. WBC 6.9 3.8 - 10.8 10*3/uL 06/25/2024 7:36 AM EST [email or web address] RBC 4.07(L) 4.20 - 5.80 10*6/uL 06/25/2024 7:36 AM EST [facility] Hemoglobin 10.1(L) 13.2 - [...] <0.03 <=0.03 10*3/uL 06/25/2024 7:36 AM EST [employer] [employer] [facility] [employer] [facility] Lymphocyte # 1.70 0.85 - 3.90 10*3/uL 06/25/2024 7:36 AM EST [facility] Monocyte # 0.70 0.20 - 0.95 10*3/uL 06/25/2024 7:36 AM EST [facility] Eosinophil # 0.10 0.02 - 0.50 10*3/uL 06/25/2024 7:36 AM EST [facility] Basophil # <0.03 0.00 - 0.20 10*3/uL 06/25/2024 7:36 AM EST [facility] [employer] [facility] [employer] nRBC % 0.0 /100 WBCs 06/25/2024 7:36 AM EST [employer] [facility] [employer] [facility] nRBC # <0.01 <0.01 10*3/uL 06/25/2024 7:36 AM EST [employer] [facility] [employer] [facility] Blood Structure of peripheral vein / Unknown Venipuncture / Unknown 06/25/2024 6:41 AM EST 06/25/2024 7:29 AM EST Alex Brand MD LAB BLOOD ORDERABLES Fin al Result [facility] [address] [place] [address], * Phosphorus (06/25/2024 6:41 AM EST) Only the most recent of3 resultswithin the time period is included. Phosphorus 3.0 2.5 - 4.5 mg/dL 06/25/2024 8:07 AM EST [facility] Blood Structure of peripheral vein / Unknown Venipuncture / Unknown 06/25/2024 6:41 AM EST 06/25/2024 7:29 AM EST Alex Brand MD LAB BLOOD ORDERABLES Fin al Result Performing Organization Address City/[facility] Co de Phone Number [facility] [address] [place] [address] * Magnesium (06/25/2024 6:41 AM EST) Only the most recent of3 resultswithin the time period is included. MG 1.8 1.6 - 2.4 mg/dL 06/25/2024 8:07 AM EST [facility] Blood Structure of peripheral vein / Unknown Venipuncture / Unknown 06/25/2024 6:41 AM EST 06/25/2024 7:29 AM EST Alex Brand MD LAB BLOOD ORDERABLES Fin al Result Performing Organization Address [facility] de Phone Number [facility] [address] [place] [address] * (ABNORMAL) Basic metabolic panel (06/25/2024 6:41 AM EST) Only the most recent of4 resultswithin the time period is included. NA 140 135 - 145 mmol/L 06/25/2024 8:07 AM EST [facility] K 4.1 3.5 - 5.3 mmol/L 06/25/2024 8:07 AM EST [employer] [facility] [employer] Cl 103 98 - 107 mmol/L 06/25/2024 8:07 AM EST [facility] [employer] [facility] CO2 26 22 - 32 mmol/L 06/25/2024 8:07 AM EST [employer] [employer] [facility] BUN 11 7 - 23 mg/dL 06/25/2024 8:07 AM EST [facility] [employer] Creatinine 0.97 0.60 - 1.30 mg/dL 06/25/2024 8:07 AM EST [facility] Glucose 210(H) 65 - 99 mg/dL 06/25/2024 8:07 AM EST [employer] [facility] Calcium 9.2 8.6 - 10.5 mg/dL 06/25/2024 8:07 AM EST [facility] Technology[facility] Anion Gap 11 5 - 15 06/25/2024 8:07 AM EST [facility] eGFR >90 >=60 mL/min/1. 73m2 06/25/2024 8:07 AM EST [facility] Comment:The estimated glomer ular [...] AM EST 06/25/2024 7:29 AM EST Alex Brand MD LAB BLOOD ORDERABLES Fin al Result [facility] [address] [place] [address], * [place] Top (06/23/2024 4:20 PM EST) Extra Tube Hold for add-ons. 06/23/2024 9:05 PM EST [facility] Comment:Auto resulted. Urine Urine specimen collection, clean catch / Unknown 06/23/2024 4:20 PM EST 06/23/2024 4:20 PM EST Quintin Ng MD LAB BLOOD ORDERABLES Final Res ult [email or web address] [address] [place] [address], [place] * Methadone Screen w/Confirmation, Urine (06/23/2024 4:11 PM EST) Methadone Metabolite Screen, Urine NEGATIVE <100 ng/mL 06/24/2024 5:13 AM EST [facility] Comment: See Note 1 Urine Voided urine specimen / Unknown Non-Blood Collection / Unknown 06/23/2024 4:11 PM EST 06/23/2024 4:18 PM EST Narrative [facility] - 06/24/2024 5:13 AM EST [facility] Received Date: Quintin Ng MD LAB URINE ORDERABLES Final Res ult [facility] [address], [place] [address], [employer] [facility] [address], [place] [address], [place] [phone] * Morphine and Codeine Confirmation, Urine (06/23/2024 4:11 PM EST) Codeine, Urine NEGATIVE <50 ng/mL 06/25/2024 9:46 AM EST [facility] Comment: See Note 1 Hydrocodone, Urine NEGATIVE <50 ng/mL 06/25/2024 9:46 AM EST [facility] Comment: See Note 1 Hydromorphone, Urine NEGATIVE <50 ng/mL 06/25/2024 9:46 AM EST [facility] Comment: See Note 1 Morphine, Urine NEGATIVE <50 ng/mL 9:46 AM EST [facility] Comment: See Note 1 Norhydrocodone, Urine NEGATIVE <50 ng/mL 06/25/2024 9:46 AM EST [facility] Comment: See Note 1 See Note 2 Note 1 This test was developed and its analytical performance characteristics have been determined by [employer]. It has not been cleared or approved [...] interpreting these drug results, please contact a [employer] Toxicology Specialist: [phone] ( ), M-F, 8am-6pm EST. Urine Voided urine specimen / Unknown Non-Blood Collection / Unknown 06/23/2024 4:11 PM EST 06/23/2024 4:18 PM EST Narrative [facility] - 06/25/2024 9:46 AM EST [facility] Received Date: us Quintin Ng MD LAB URINE ORDERABLES Final Res ult [facility] [address], [place] [address], [place] [phone] [employer] [facility] [address], [place] [address], [place] [phone] * Barbiturate Screen, Urine (06/23/2024 4:11 PM EST) Barbiturate Screen, Urine Negative Negative 06/23/2024 5:19 PM EST [facility] Comment: Detection limit of [...] 4:11 PM EST 06/23/2024 4:18 PM EST us Quintin Ng MD LAB URINE ORDERABLES Final Res ult [employer] [facility] [address] [place] [address], [place] * Propoxyphene Screen, Urine (06/23/2024 4:11 PM EST) Propoxyphene Screen, Urine NEGATIVE <300 ng/mL 06/24/2024 5:13 AM EST [facility] [facility] Comment: See Note 2 Note 1 This drug testing is for medical treatment only. ?? Analysis was performed as non-forensic testing and these results should be used only by healthcare providers to render diagnosis or treatment, or to monitor progress of medical conditions. For assistance with interpreting these drug results, please contact a [employer] Toxicology Specialist: [phone] ( ), M-F, 8am-6pm EST. Note [...] interpreting these drug results, please contact a [employer] Toxicology Specialist: [phone] ( ), M-F, 8am-6pm EST. Urine Voided urine specimen / Unknown Non-Blood Collection / Unknown 06/23/2024 4:11 PM EST 06/23/2024 4:18 PM EST Narrative [facility] - 06/24/2024 5:13 AM EST [facility] Received Date: us Quintin Ng MD LAB URINE ORDERABLES Final Res ult [facility] [address] [facility] [address], [place] [address], [place] [phone] [employer] [facility] [address], [place] [address], [place] [phone] * Marijuana Qualitative Screen, Urine (06/23/2024 4:11 PM EST) Marijuana Screen, Urine Negative Negative 06/23/2024 5:19 PM EST [facility] Comment: Detection limit of 50 ng/mL of 35-[id number]-nofrr-6-DTM-2-carboxylic acid. Drug results are to be used only for medical purposes. ??Unconfirmed screening results must not be used for non-medical purposes. Urine Voided urine specimen / Unknown Non-Blood Collection / Unknown 06/23/2024 4:11 PM EST 06/23/2024 4:18 PM EST Quintin Ng MD LAB URINE ORDERABLES Final Res ult [facility] [address] [place] [phone], * Phencyclidine (PCP) Screen, Urine (06/23/2024 4:11 PM EST) Pathologist [facility] Phencyclidine Screen, Urine NEGATIVE <25 ng/mL 06/24/2024 5:13 AM EST [facility] Comment: See Note 2 Urine Voided urine specimen / Unknown Non-Blood Collection / Unknown 06/23/2024 4:11 PM EST 06/23/2024 4:18 PM EST Narrative [facility] - 06/24/2024 5:13 AM EST [facility] Received Date:[id number] Quintin Ng MD LAB URINE ORDERABLES Final Res ult [facility] [address] [facility] 3rd Floor, [place] [address], [place] [phone] [employer] [facility] [address] [facility] [address]rd Floor, [place] [address], [place] [phone] * (ABNORMAL) Cocaine Qualitative, Urine (06/23/2024 4:11 PM EST) Pathologist [facility] Cocaine Metabolite Screen, Urine Presumptive Positive(A) Negative 06/23/2024 5:19 PM EST [facility] Comment: Detection limit of 300 ng/mL of Benzoylecgonine. Drug results are to be used only for medical purposes. ??Unconfirmed screening results must not be used for non-medical purposes. Urine Voided urine specimen / Unknown Non-Blood Collection / Unknown 06/23/2024 4:11 PM EST 06/23/2024 4:18 PM EST Quintin Ng MD LAB URINE ORDERABLES Final Res ult Performing Organization Address [facility] Co de Phone Number [facility] CL[facility]ICAL [facility] LABORATORY [address] [place] [address], [place] * Benzodiazepine Qualitative Screen, Urine (06/23/2024 4:11 PM EST) Benzodiazepine Screen, Urine Negative Negative 06/23/2024 5:19 PM EST [facility] Comment: Detection limit of 200 ng/mL of Nordiazepam. Drug results are to be used only for medical purposes. ??Unconfirmed screening results must not be used for non-medical purposes. Urine Voided urine specimen / Unknown Non-Blood Collection / Unknown 06/23/2024 4:11 PM EST 06/23/2024 4:18 PM EST Quintin Ng MD LAB URINE ORDERABLES Final Res ult Performing Organization Address [facility] Co de Phone Number [facility] [employer] CL[facility] LAB[facility]ORY [address] [place] [phone], [place] * Amphetamine Qualitative, Urine (06/23/2024 4:11 PM EST) Amphetamine Screen, Urine Negative Negative 06/23/2024 5:19 PM EST [facility] Comment: Detection limit of 1000 ng/mL of d-Methamphetamine. Drug results are to be used only for medical purposes. ??Unconfirmed screening results must not be used for non-medical purposes. Urine Voided urine specimen / Unknown Non-Blood Collection / Unknown 06/23/2024 4:11 PM EST 06/23/2024 4:18 PM EST Quintin Ng MD LAB URINE ORDERABLES Final Res ult Performing Organization Address City/[facility] Co de Phone Number [email or web address] [address] [place] [address], * TSH Reflex Free T4 (06/23/2024 7:46 AM EST) TSH 0.337 0.280 - 3.890 uIU/mL 06/23/2024 2:56 PM EST [facility] Blood Structure of peripheral vein / Unknown Venipuncture / Unknown 06/23/2024 7:46 AM EST 06/23/2024 7:51 AM EST Quintin Ng MD LAB BLOOD ORDERABLES Final Res ult Performing Organization Address [facility] Phone Number [email or web address] [address] [place] [address], * (ABNORMAL) Hemoglobin A1c (06/23/2024 7:46 AM EST) Hemoglobin A1C 7.9(H) <5.7 % of total Hgb 06/23/2024 12:45 PM EST [facility] Comment: For someone without known diabetes, a [...] (MG/DL) 180 mg/dL 06/23/2024 12:45 PM EST [facility] eAG (MMOL/L) 10.0 mmol/L 06/23/2024 12:45 PM EST [facility] Blood Structure of peripheral vein / Unknown Venipuncture / Unknown 06/23/2024 7:46 AM EST 06/23/2024 7:46 AM EST Narrative [facility] - 06/23/2024 12:45 PM EST [facility] Received Date: Alex Brand MD LAB BLOOD ORDERABLES Fin al Result [facility] [address] [facility] [address], [place] [address], [place] [phone] [employer] [facility] [address] [facility] [address], [place] [address], [place] [phone] * Folate (06/23/2024 7:46 AM EST) Folate 15.0 4.8 - 24.2 ng/mL 06/23/2024 2:56 PM EST [facility] Blood Structure of peripheral vein / Unknown Venipuncture / Unknown 06/23/2024 7:46 AM EST 06/23/2024 7:51 AM EST Quintin Ng MD LAB BLOOD ORDERABLES Final Res ult Performing Organization Address [facility]/ZIP Co de Phone Number [facility] [address] [place] [address], [place] * Vitamin B12 (06/23/2024 7:46 AM EST) Vitamin B12 584 232 - 1,245 pg/mL 06/23/2024 2:56 PM EST [facility] Blood Structure of peripheral vein / Unknown Venipuncture / Unknown 06/23/2024 7:46 AM EST 06/23/2024 7:51 AM EST Quintin Ng MD LAB BLOOD ORDERABLES Final Res ult Performing Organization Address City/[facility]/ZIP Co de Phone Number [facility] [address] [place] [address], [place] * Hepatitis C Antibody w/Reflex to HCV RNA, Quantitative PCR (06/23/2024 7:44 AM EST) Hepatitis C Antibody NON-REACT ZAINA NON-REACT ZAINA 06/23/2024 9:10 PM EST [facility] Comment: HCV antibody was non-reactive. There is no laboratory evidence of HCV infection. In most cases, no further action is required. However, if recent HCV exposure is suspected, a test for HCV RNA (test code 82337) is suggested. For additional information please refer to http://education.[employer]/faq/XRX60w5 (This link is being provided for informational/ educational purposes only.) Blood Structure of peripheral vein / Unknown Venipuncture / Unknown 06/23/2024 7:44 AM EST 06/23/2024 7:45 AM EST Narrative [facility] - 06/23/2024 9:10 PM EST [facility] Received Date: Alex Brand MD LAB BLOOD ORDERABLES Fin al Result [address] [facility], [place] [address], [place] [phone] [employer] [address], [place] [address], [place] [phone] * Navarro Top, Urine (06/22/2024 7:38 PM EST) Pathologist [facility] Extra Tube Hold for add-ons. 06/23/2024 1:06 AM EST [facility] Comment:Auto resulted. Urine Urine specimen collection, clean catch / Unknown Non-Blood Collection / Unknown 06/22/2024 7:38 PM EST 06/22/2024 7:49 PM EST Alex Brand MD LAB URINE ORDERABLES Fin al Result [facility] [address] [place] [phone], [place] * (ABNORMAL) Urinalysis W/Reflex to Microscopic & Culture (06/22/2024 7:38 PM EST) Color, Urine Light Yellow Colorless, Light Yellow, Yellow, Dark Yellow 06/22/2024 8:17 PM EST [facility] Clarity, Urine Clear Clear 06/22/2024 8:17 PM EST [facility] Specific [place], Urine 1.020 1.005 - 1.030 06/22/2024 8:17 PM EST [facility] pH, Urine 6.0 4.6 - 8.0 06/22/2024 8:17 PM EST [facility] Protein, Urine Negative Negative 06/22/2024 8:17 PM EST [facility] Glucose, Urine 3+(A) Negative 06/22/2024 8:17 PM EST [facility] Ketones, Urine 1+(A) Negative 06/22/2024 8:17 PM EST [facility] Bilirubin, Urine Negative Negative 06/22/2024 8:17 PM EST [facility] Blood, Urine 2+(A) Negative 06/22/2024 8:17 PM EST [facility] Nitrite, Urine Negative Negative 06/22/2024 8:17 PM EST [facility] Urobilinogen, Urine Normal Normal 06/22/2024 8:17 PM EST [facility] Leukocyte Esterase, Urine Negative Negative 06/22/2024 8:17 PM EST [facility] WBC, Urine <1 0 - 2 /HPF 06/22/2024 8:17 PM EST [facility] RBC, Urine <1 0 - 2 /HPF 06/22/2024 8:17 PM EST [facility] Hyaline Casts, Urine 0 0 - 2 /LPF 06/22/2024 8:17 PM EST [facility] Bacteria, Urine None None /HPF /HPF 06/22/2024 8:17 PM EST [facility] Urine Urine specimen collection, clean catch / Unknown Non-Blood Collection / Unknown 06/22/2024 7:38 PM EST 06/22/2024 7:49 PM EST Alex Brand MD LAB URINE ORDERABLES Fin al Result Performing Organization Address City/[facility]/ZIP Co de Phone Number [email or web address] LAB[facility] [address] [place] [address], [place] * Blood Culture, Peripheral #2 (06/22/2024 6:42 PM EST) Only the most recent of2 resultswithin the time period is included. Culture No growth after 5 days 06/27/2024 10:22 PM EST [facility] Blood Structure of peripheral vein / Unknown Venipuncture / Unknown 06/22/2024 6:42 PM EST 06/22/2024 7:04 PM EST Narrative [facility] - 06/27/2024 10:22 PM EST [facility] Received Date: MICRO NUMBER: [id number] SPECIMEN QUALITY: Suboptimal SOURCE: BLOOD VENOUS, PERIPHERAL STATUS: FINAL COMMENT: Aerobic and anaerobic bottle received. Inspection of blood culture bottles indicates that an inadequate volume of blood may have been collected for the detection of sepsis. Alex Brand MD LAB MICROBIOLOGY - GENER AL ORDERABLES Final Result Performing Organization Address City/[facility]/ZIP Co de Phone Number [facility] [address] [facility] [address], [place] [address], [employer] [facility] [address] [facility] [address], [place] [address], * X-Ray Hand Left 3+ Views (06/22/2024 [...] obtain the completed interpretation. ? Workstation ID: [id number] Narrative 06/22/2024 2:06 PM EST COMPARISON: ??None. ?? FINDINGS AND Resulting Agency Comment [id number] Procedure Note Antonia Wayne MD - 06/22/2024 COMPARISON: None. FINDINGS AND IMPRESSION: No acute fracture or dislocation. Alignment and joint spaces aremaintained. Soft tissues are within normal limits. If this radiology report contains a blank impression section, it is anincomplete radiology report. Please contact the interpreting radiologistor applicable radiology division as soon as possible to obtain thecompleted interpretation. Workstation ID: [id number] us Sofía Hardy MD IMG XR PROCEDURES Final Res ult * ECG 12 lead (06/22/2024 1:31 PM EST) Only the most recent of2 resultswithin the time period is included. Ventricular Rate EKG 86 BPM MUSE EKG Atrial Rate 86 BPM MUSE EKG DC Interval 132 ms MUSE EKG QRS Interval 90 ms MUSE EKG QT Interval 362 ms MUSE EKG QTC Interval 433 ms MUSE EKG P [place] 53 degrees MUSE EKG R [place] 30 degrees MUSE EKG T Wave [place] 33 degrees MUSE EKG 06/22/2024 1:31 PM EST 07/01/2024 12:59 PM EST Impressions MUSE EKG - 07/01/2024 12:59 PM EST NORMAL SINUS RHYTHM NORMAL ECG WHEN COMPARED WITH ECG OF 22-JUN-2024 08:12, (UNCONFIRMED) PREVIOUS ECG HAS UNDETERMINED RHYTHM, NEEDS REVIEW Confirmed by Ulises Thompson ([id number]) on 07/01/2024 12:59:17 PM Sofía Hardy MD ECG ORDERABLES Final Resul t MUSE EKG * Lactic Acid, Plasma (06/22/2024 10:59 AM EST) Lactic Acid 1.6 0.5 - 1.9 mmol/L 06/22/2024 11:47 AM EST [facility] Blood Structure of peripheral vein / Unknown Venipuncture / Unknown 06/22/2024 10:59 AM EST 06/22/2024 11:17 AM EST Sofía Hardy MD LAB BLOOD ORDERABLES Final Result Performing Organization Address [facility] Co de Phone Number [email or web address] LAB[facility] [address] [place] [address], [place] * CT C-Spine WO Contrast (06/22/2024 8:55 [...] obtain the completed interpretation. ? Workstation ID: [id number] Up-to-date CT equipment and radiation dose reduction techniques were employed. CTDIvol: 26.2 - 70.4 mGy. DLP: 2128 mGy-cm. ??The following accession numbers are related to this dose report [id number]: [id number] Narrative 06/22/2024 9:50 AM EST COMPARISON: No [...] tissues are unremarkable. ?? Resulting Agency Comment [id number] Procedure Note Paulo Osuna, DO - 06/22/2024 [...] possible to obtain thecompleted interpretation. Workstation ID: [id number] Up-to-date CT equipment and radiation dose reduction techniques wereemployed. CTDIvol: 26.2 - 70.4 mGy. DLP: 2128 mGy-cm. The followingaccession numbers are related to this dose report [id number]: [id number] Sofía Hardy MD IMG CT PROCEDURES Final [...] obtain the completed interpretation. ? Workstation ID: [id number] Up-to-date CT equipment and radiation dose reduction techniques were employed. CTDIvol: 26.2 - 70.4 mGy. DLP: 2128 mGy-cm. ??The following accession numbers are related to this dose report [id number]: [id number] Narrative 06/22/2024 9:48 AM EST TECHNIQUE: 3D [...] cells are well aerated. Resulting Agency Comment [id number] Procedure Note Paulo Osuna, - 06/22/2024 TECHNIQUE: 3D volume-rendered reconstructions were [...] possible to obtain thecompleted interpretation. Workstation ID: [id number] Up-to-date CT equipment and radiation dose reduction techniques wereemployed. CTDIvol: 26.2 - 70.4 mGy. DLP: 2128 mGy-cm. The followingaccession numbers are related to this dose report [id number]: [id number] us Sofía Hardy MD IM CT PROCEDURES Final Res ult * COVID-19, Flu A/B & RSV RNA PCR, Symptomatic (06/22/2024 8:10 AM EST) PCR, SARS CoV-2 RNA Not Detected Not Detected [employer] 06/22/2024 8:57 AM EST [facility] Comment:A Not Detected (Nega [...] A RNA PCR Not Detected Not Detected [employer]PUnion CollegeID [employer] 06/22/2024 8:57 AM EST [facility] Comment:Negative results do not preclude infection and should not be used as the sole basis for diagnosis, treatment or other patient management decisions. Negative results must be combined with clinical observations, patient history, and/or epidemiological information. Flu B RNA PCR Not Detected Not Detected [employer] 06/22/2024 8:57 AM EST [facility] Comment:Negative results do not preclude infection and should not be used as the sole basis for diagnosis, treatment or other patient management decisions. Negative results must be combined with clinical observations, patient history, and/or epidemiological information. RSV RNA PCR Not Detected Not Detected [employer] 06/22/2024 8:57 AM EST [facility] Comment:Negative results do not preclude infection and should not be used as the sole basis for diagnosis, treatment or other patient management decisions. Negative results must be combined with clinical observations, patient history, and/or epidemiological information. Swab (Nares) Non-Blood Collection / Unknown 06/22/2024 8:10 AM EST 06/22/2024 8:10 AM EST [facility] - 06/22/2024 8:57 AM EST This test was developed, validated and its performance characteristics determined by [facility] Clinical Labs. This test has not been cleared or approved by the U.S. Food and Drug Administration (FDA). FDA Policy for Diagnostic Tests for Coronavirus Disease-2019 during the Public Health Emergency issued August 04, 2019, is followed. us Sofía Hardy MD LAB BODY FLUIDS AND STOOLS ORDERABLES Final Result Performing Organization Address [facility]/ZIP Co de Phone Number [email or web address] [email or web address] CL[facility] PATHOLOG[facility] LABORATORY [address] [place] [address], [place] * (ABNORMAL) Lactic Acid (w/Repeat if >2) - Sepsis (06/22/2024 8:08 AM EST) Lactic Acid 2.7(H) 0.5 - 1.9 mmol/L 06/22/2024 8:41 AM EST [facility] Blood Structure of peripheral vein / Unknown Venipuncture / Unknown 06/22/2024 8:08 AM EST 06/22/2024 8:13 AM EST Sofía Hardy MD LAB BLOOD ORDERABLES Final Result Performing Organization Address [facility] Co de Phone Number [email or web address] LAB[facility] [address] [place] [address], [place] * Lipase (06/22/2024 8:08 AM EST) Lipase 27 13 - 60 U/L 06/22/2024 8:48 AM EST [facility] Blood Structure of peripheral vein / Unknown Venipuncture / Unknown 06/22/2024 8:08 AM EST 06/22/2024 8:12 AM EST us Sofía Hardy MD LAB BLOOD ORDERABLES Final Result Performing Organization Address City/[facility]/ZIP Co de Phone Number [email or web address] [address] [place] [address], [place] * Ethanol (06/22/2024 8:08 AM EST) Ethanol <10 <10 mg/dL 06/22/2024 8:45 AM EST [facility] Blood Structure of peripheral vein / Unknown Venipuncture / Unknown 06/22/2024 8:08 AM EST 06/22/2024 8:12 AM EST us Sofía Hardy MD LAB BLOOD ORDERABLES Final Result [email or web address] [address] [place] [address], [place] * (ABNORMAL) CMP - Comprehensive Metabolic Panel (06/22/2024 8:08 AM EST) NA 138 135 - 145 mmol/L 06/22/2024 8:48 AM EST [employer] [facility] [employer] [facility] LAB[facility] K 4.7 3.5 - 5.3 mmol/L 06/22/2024 8:48 AM EST [facility] Cl 97(L) 98 - 107 mmol/L 06/22/2024 8:48 AM EST [facility] CO2 16(L) 22 - 32 mmol/L 06/22/2024 8:48 AM EST [employer] [facility] [employer] [facility] Anion Gap 25(H) 5 - 15 06/22/2024 8:48 AM EST [facility] Glucose 235(H) 65 - 99 mg/dL 06/22/2024 8:48 AM EST [facility] Creatinine 1.30 0.60 - 1.30 mg/dL 06/22/2024 8:48 AM EST [facility] Calcium 9.3 8.6 - 10.5 mg/dL 06/22/2024 8:48 AM EST [facility] Total Protein 8.1(H) 6.0 - 8.0 g/dL 06/22/2024 8:48 AM EST [facility] Albumin 4.5 3.5 - 5.2 g/dL 06/22/2024 8:48 AM EST [facility] Bilirubin, Total 0.5 0.2 - 1.2 mg/dL 06/22/2024 8:48 AM EST [facility] [facility] Alkaline Phosphatase 60 35 - 129 U/L 06/22/2024 8:48 AM EST [facility] [employer] CL[facility] PATHOLOG[facility] LABORATORY AST 314(H) 10 - 40 U/L 06/22/2024 8:48 AM EST [facility] [facility] ALT 142(H) 10 - 40 U/L 06/22/2024 8:48 AM EST [facility] [facility] BUN 50(H) 7 - 23 mg/dL 06/22/2024 8:48 AM EST [facility] eGFR 72 >=60 mL/min/1. 73m2 06/22/2024 8:48 AM EST [facility] Comment:The estimated glomer ular [...] - 4.2 g/dL 06/22/2024 8:48 AM EST [facility] A/G Ratio 1.3(L) 1.5 - 3.0 06/22/2024 8:48 AM EST [facility] Blood Structure of peripheral vein / Unknown Venipuncture / Unknown 06/22/2024 8:08 AM EST 06/22/2024 8:12 AM EST us Sofía Hardy MD LAB BLOOD ORDERABLES Final Result [facility] [address] [place] [address], [place] * XR Chest Portable 1 View [...] obtain the completed interpretation. ? Workstation ID: [id number] Narrative 06/22/2024 8:14 AM EST COMPARISON: None. FINDINGS: Lines/Tubes/Devices: None. Lungs: No consolidation or pulmonary edema. Pleura: No pleural effusion. No pneumothorax. Heart/Mediastinum: The cardiac and mediastinal contours are normal. Bones/Soft tissues: No acute osseous abnormality. Resulting Agency Comment [id number] Procedure Note Paulo Osuna DO - 06/22/2024 [...] possible to obtain thecompleted interpretation. Workstation ID: [id number] us Sofía Hardy MD IMG XR PROCEDURES Final Res ult * HEART & VASCULAR - SCANNED (06/22/2024) Anatomical Region Laterality Modality Other us Onbase Scan Paras SCANNED PROCEDURES Final Resu lt from Last 3 Months Insurance [facility] MEDICAID Advance Directives * Full Code (Latest Code Status on File) Date Activated Date Inactivated Comments 06/22/2024 2:22 PM 06/25/2024 11:13 PM Care Teams Pocket Closer Relationship Specialty Start Date End Date Dayne Dubose [address] [place] [phone] PCP - General 06/25/24
--- OUTSIDE RECORDS SUMMARY | 2024-07-03 15:05 | XMS_ITS | Referral Summary ---
Author Organization [facility] Address [address] [id number] Care Team Providers Care Applications Instructor Name Role Phone betty Dayne Primary Care Provider [phone] Encounters Date Type Department Care Team Description 06/22/2024 7:39 AM EST - 06/25/2024 9:01 PM [facility] Hospital Encounter [facility] Emergency Department [address] [place] [address] Sofía Hardy MD Darling, Chad E, MD Delomba, Wyatt Willis, MD Quarles, Ryan H, MD Jha, MD Zuleyma Rhabdomyolysis (Primary Dx); Opioid use disorder, severe, dependence (HCC) [F11.20]; Cocaine use disorder (HCC) [F14.10] [facility] Psych facility/unit[facility] (65) from Last 3 Months Allergies Active Allergy Reactions Criticality Noted Date [...] by mouth 2 times a day. 03/03/20 Discontinu ed(Error) melatonin 3 mg tablet Take 6 mg by mouth nightly as needed for sleep. 03/03/20 Discontinu ed(Error) docusate sodium (COLACE) 100 mg [...] hours for 7 doses. 7 tablet 06/25/19 25 Active Problems Problem Noted Date Diagnosed Date [...] drug rehab program before being discharged to [facility], more recently he is homeless and [...] drug rehab program before being discharged to [facility], more recently he is homeless and [...] fluffs between toes and loose Kerlix wraps -material control associate consulted Assessment & Plan (06/23/2024 2:36 PM [...] disorder (alcohol, cocaine, opioids), who presented to [facility] ED on 06/22/2024 after being found down. [...] disorder (alcohol, cocaine, opioids), who presented to [facility] ED on 06/22/2024 after being found down. [...] daily Continue to hold antibiotics and monitor. Immunizations Immunization Administration Dates Next Due Covid-19 [...] Mass Index - - Plan of Treatment Not on file Procedures * Due to [place] state law, this organization might not be [...] Last 3 Months Results * Due to [place] state law, this organization might not be sharing negative HIV tests. * (ABNORMAL) Creatine Kinase (06/25/2024 7:41 PM EST) Only the most recent of9 resultswithin the time period is included. CK 1,115(H) 49 - 348 U/L 06/25/2024 8:35 PM EST [employer] [facility] Blood Structure of peripheral vein / Unknown Venipuncture / Unknown 06/25/2024 7:41 PM EST 06/25/2024 8:05 PM EST us Quintin Ng MD LAB BLOOD ORDERABLES Final Res ult Performing Organization Address [facility]/ZIP Co de Phone Number [employer] [facility] [address] [place] [address], * (ABNORMAL) POCT Glucose, interfaced (06/25/2024 5:00 PM EST) Only the most recent of11 resultswithin the time period is included. Glucose, POCT 312(H) 70 - 99 mg/dL 06/25/2024 5:01 PM EST [facility] [employer], POC Comment: The web merchant has not determined the efficacy of this test in Critically ill patients. ??[facility] defines Critically ill patients for the purpose [...] DEVICE Fin al Result Performing Organization Address City/[facility]/ZIP Co de Phone Number [facility] CARE CENTERJiangsu Shunda Semiconductor DevelopmentUPPER VALLEY [facility], POC [address] [place] [address], * (ABNORMAL) CBC Auto Differential (06/25/2024 6:41 [...] <0.01 <0.01 10*3/uL 06/25/2024 7:36 AM EST [facility] Blood Structure of peripheral vein / Unknown Venipuncture / Unknown 06/25/2024 6:41 AM EST 06/25/2024 7:29 AM EST us Alex Brand MD LAB BLOOD ORDERABLES Fin al Result [employer] [facility] [address] [place] [address], * Phosphorus (06/25/2024 6:41 AM EST) Only the most recent of3 resultswithin the time period is included. Phosphorus 3.0 2.5 - 4.5 mg/dL 06/25/2024 8:07 AM EST [employer] [facility] Blood Structure of peripheral vein / Unknown Venipuncture / Unknown 06/25/2024 6:41 AM EST 06/25/2024 7:29 AM EST Alex Brand MD LAB BLOOD ORDERABLES Fin al Result Performing Organization Address City/[facility] Co de Phone Number [facility] [facility] [address] [place] [address], [place] * Magnesium (06/25/2024 6:41 AM EST) Only the most recent of3 resultswithin the time period is included. MG 1.8 1.6 - 2.4 mg/dL 06/25/2024 8:07 AM EST [employer] [facility] Blood Structure of peripheral vein / Unknown Venipuncture / Unknown 06/25/2024 6:41 AM EST 06/25/2024 7:29 AM EST Alex Brand MD LAB BLOOD ORDERABLES Fin al Result [employer] [facility] [address] [place] [address], * (ABNORMAL) Basic metabolic panel (06/25/2024 6:41 AM EST) Only the most recent of4 resultswithin the time period is included. NA 140 135 - 145 mmol/L 06/25/2024 8:07 AM EST [employer] [facility] K 4.1 3.5 - 5.3 mmol/L 06/25/2024 8:07 AM EST [employer] [facility] Cl 103 98 - 107 mmol/L 06/25/2024 8:07 AM EST [employer] [facility] LAB[facility] CO2 26 22 - 32 mmol/L 06/25/2024 8:07 AM EST [facility] BUN 11 7 - 23 mg/dL 06/25/2024 8:07 AM EST [employer] [facility] Creatinine 0.97 0.60 - 1.30 mg/dL 06/25/2024 8:07 AM EST [employer] Glucose 210(H) 65 - 99 mg/dL 06/25/2024 8:07 AM EST [employer] [facility] Calcium 9.2 8.6 - 10.5 mg/dL 06/25/2024 8:07 AM EST [employer] [facility] Anion Gap 11 5 - 15 06/25/2024 8:07 AM EST [employer] [facility] eGFR >90 >=60 mL/min/1. 73m2 06/25/2024 8:07 AM EST [employer] [facility] Comment:The estimated glomer ular [...] MD LAB BLOOD ORDERABLES Fin al Result [employer] [facility] [address] [place] [address], [place] * UA [place] Top (06/23/2024 4:20 PM EST) Extra Tube Hold for add-ons. 06/23/2024 9:05 PM EST [facility]OUISZIO StudiosKING[facility] LAB[facility] Comment:Auto resulted. Urine Urine specimen collection, clean catch / Unknown 06/23/2024 4:20 PM EST 06/23/2024 4:20 PM EST Quintin Ng MD LAB BLOOD ORDERABLES Final Res ult [facility]ZIO StudiosUPPER [facility]LEY [facility] [employer] [facility] [address] [place] [address], [place] * Methadone Screen w/Confirmation, Urine (06/23/2024 4:11 PM EST) Methadone Metabolite Screen, Urine NEGATIVE <100 ng/mL 06/24/2024 5:13 AM EST [employer] Comment: See Note 1 Urine Voided urine specimen / Unknown Non-Blood Collection / Unknown 06/23/2024 4:11 PM EST 06/23/2024 4:18 PM EST Narrative [facility] - 06/24/2024 5:13 AM EST [facility] Received Date:[id number] Quintin Ng MD LAB URINE ORDERABLES Final Res ult [facility] [address] [facility] [facility] [address], [place] [address], [place] [phone] [facility] [address] [facility] [address], [place] [address], [place] [phone] * Morphine and Codeine Confirmation, Urine (06/23/2024 4:11 PM EST) Codeine, Urine NEGATIVE <50 ng/mL 06/25/2024 9:46 AM EST [employer] Comment: See Note 1 Hydrocodone, Urine NEGATIVE <50 ng/mL 06/25/2024 9:46 AM EST [facility] Comment: See Note 1 Hydromorphone, Urine NEGATIVE <50 ng/mL 06/25/2024 9:46 AM EST [employer] Comment: See Note 1 Morphine, Urine NEGATIVE <50 ng/mL 9:46 AM EST [facility] Comment: See Note 1 Norhydrocodone, Urine NEGATIVE <50 ng/mL 06/25/2024 9:46 AM EST [facility] Comment: See Note 1 See Note 2 Note 1 This test was developed and its analytical performance characteristics have been determined by [employer]. It has not been cleared or approved [...] interpreting these drug results, please contact a [employer] Toxicology Specialist: [phone] ( ), M-F, 8am-6pm EST. Urine Voided urine specimen / Unknown Non-Blood Collection / Unknown 06/23/2024 4:11 PM EST 06/23/2024 4:18 PM EST Narrative [facility] - 06/25/2024 9:46 AM EST [facility] Received Date: Quintin Ng MD LAB URINE ORDERABLES Final Res ult [facility] [address] [facility] [address], [place] [address], [place] [phone] [facility] [address], [place] [address], [place] [phone] * Barbiturate Screen, Urine (06/23/2024 4:11 PM EST) Barbiturate Screen, Urine Negative Negative 06/23/2024 5:19 PM EST [employer] [facility] Comment: Detection limit of [...] MD LAB URINE ORDERABLES Final Res ult [facility] [address] [place] [address], * Propoxyphene Screen, Urine (06/23/2024 4:11 PM EST) Propoxyphene Screen, Urine NEGATIVE <300 ng/mL 06/24/2024 5:13 AM EST [employer] Comment: See Note 2 Note 1 This drug testing is for medical treatment only. ?? Analysis was performed as non-forensic testing and these results should be used only by healthcare providers to render diagnosis or treatment, or to monitor progress of medical conditions. For assistance with interpreting these drug results, please contact a [employer] Toxicology Specialist: [phone] ( ), M-F, 8am-6pm EST. Note [...] interpreting these drug results, please contact a [employer] Toxicology Specialist: [phone] ( ), M-F, 8am-6pm EST. Urine Voided urine specimen / Unknown Non-Blood Collection / Unknown 06/23/2024 4:11 PM EST 06/23/2024 4:18 PM EST Narrative [facility] - 06/24/2024 5:13 AM EST [facility] Received Date: Quintin Ng MD LAB URINE ORDERABLES Final Res ult [facility] [address] [facility] [address], [place] [address], [place] [phone] [employer] [facility] [address] [facility] [address], [place] [address], [place] [phone] * Marijuana Qualitative Screen, Urine (06/23/2024 4:11 PM EST) Marijuana Screen, Urine Negative Negative 06/23/2024 5:19 PM EST [employer] [facility] Comment: Detection limit of 50 ng/mL of 80-Vak-tnkti-7-QXX-5-carboxylic acid. Drug results are to be used only for medical purposes. ??Unconfirmed screening results must not be used for non-medical purposes. Urine Voided urine specimen / Unknown Non-Blood Collection / Unknown 06/23/2024 4:11 PM EST 06/23/2024 4:18 PM EST Quintin Ng MD LAB URINE ORDERABLES Final Res ult Performing Organization Address City/[facility]/ZIP Co de Phone Number [facility]mer[facility]rapeutics [facility] LAB[facility] [address] [place] [address], * Phencyclidine (PCP) Screen, Urine (06/23/2024 4:11 PM EST) Phencyclidine Screen, Urine NEGATIVE <25 ng/mL 06/24/2024 5:13 AM EST [employer] [facility] Comment: See Note 2 Urine Voided urine specimen / Unknown Non-Blood Collection / Unknown 06/23/2024 4:11 PM EST 06/23/2024 4:18 PM EST Narrative [facility] - 06/24/2024 5:13 AM EST [facility] Received Date: Quintin Ng MD LAB URINE ORDERABLES Final Res ult [facility] [address] [facility] [address], [place] [address], [place] [phone] [employer] [facility] [address], [place] [address], [place] [phone] * (ABNORMAL) Cocaine Qualitative, Urine (06/23/2024 4:11 PM EST) Cocaine Metabolite Screen, Urine Presumptive Positive(A) Negative 06/23/2024 5:19 PM EST [employer] [facility] Comment: Detection limit of 300 ng/mL of Benzoylecgonine. Drug results are to be used only for medical purposes. ??Unconfirmed screening results must not be used for non-medical purposes. Urine Voided urine specimen / Unknown Non-Blood Collection / Unknown 06/23/2024 4:11 PM EST 06/23/2024 4:18 PM EST Quintin Ng MD LAB URINE ORDERABLES Final Res ult Performing Organization Address [facility] de Phone Number [facility]mer[facility] LABORATORY [address] [place] [address], [place] * Benzodiazepine Qualitative Screen, Urine (06/23/2024 4:11 PM EST) Benzodiazepine Screen, Urine Negative Negative 06/23/2024 5:19 PM EST [employer] [facility] Comment: Detection limit of 200 ng/mL of Nordiazepam. Drug results are to be used only for medical purposes. ??Unconfirmed screening results must not be used for non-medical purposes. Urine Voided urine specimen / Unknown Non-Blood Collection / Unknown 06/23/2024 4:11 PM EST 06/23/2024 4:18 PM EST Quintin Ng MD LAB URINE ORDERABLES Final Res ult Performing Organization Address City/[facility] Co de Phone Number [facility]ZIO StudiosUPPER [facility] [employer] [facility] [address] [place] [address], * Amphetamine Qualitative, Urine (06/23/2024 4:11 PM EST) Pathologist [facility] Amphetamine Screen, Urine Negative Negative 06/23/2024 5:19 PM EST [facility] StudiosU[facility] [employer] [facility] Comment: Detection limit of 1000 ng/mL of d-Methamphetamine. Drug results are to be used only for medical purposes. ??Unconfirmed screening results must not be used for non-medical purposes. Urine Voided urine specimen / Unknown Non-Blood Collection / Unknown 06/23/2024 4:11 PM EST 06/23/2024 4:18 PM EST Quintin Ng MD LAB URINE ORDERABLES Final Res ult Performing Organization Address [facility] Co de Phone Number [facility] StudiosUPP[facility] [employer] [facility] [address] [place] [address], [place] * TSH Reflex Free T4 (06/23/2024 7:46 AM EST) Pathologist [facility] TSH 0.337 0.280 - 3.890 uIU/mL 06/23/2024 2:56 PM EST [facility] [employer] [facility] Blood Structure of peripheral vein / Unknown Venipuncture / Unknown 06/23/2024 7:46 AM EST 06/23/2024 7:51 AM EST Quintin Ng MD LAB BLOOD ORDERABLES Final Res ult Performing Organization Address [facility] Co de Phone Number [facility] [employer] [facility] [address] [place] [address], [place] * (ABNORMAL) Hemoglobin A1c (06/23/2024 7:46 AM EST) Pathologist [facility] Hemoglobin A1C 7.9(H) <5.7 % of total Hgb 06/23/2024 12:45 PM EST [employer] Comment: For someone without known diabetes, a [...] (MG/DL) 180 mg/dL 06/23/2024 12:45 PM EST [employer] [facility] eAG (MMOL/L) 10.0 mmol/L 06/23/2024 12:45 PM EST [employer] [facility] Blood Structure of peripheral vein / Unknown Venipuncture / Unknown 06/23/2024 7:46 AM EST 06/23/2024 7:46 AM EST Narrative [facility] - 06/23/2024 12:45 PM EST [facility] Received Date: Alex Brand MD LAB BLOOD ORDERABLES Fin al Result [facility] [address] [facility] [address], [place] [address], [employer] [facility] [address], [place] [address], * Folate (06/23/2024 7:46 AM EST) Folate 15.0 4.8 - 24.2 ng/mL 06/23/2024 2:56 PM EST [employer] [facility] Blood Structure of peripheral vein / Unknown Venipuncture / Unknown 06/23/2024 7:46 AM EST 06/23/2024 7:51 AM EST Quintin Ng MD LAB BLOOD ORDERABLES Final Res ult [employer] [facility] LAB[facility] [address] [place] [address], * Vitamin B12 (06/23/2024 7:46 AM EST) Vitamin B12 584 232 - 1,245 pg/mL 06/23/2024 2:56 PM EST [employer] [facility] Blood Structure of peripheral vein / Unknown Venipuncture / Unknown 06/23/2024 7:46 AM EST 06/23/2024 7:51 AM EST Quintin Ng MD LAB BLOOD ORDERABLES Final Res ult [facility] [employer] [facility] LABOR[facility] [address] [place] [address], [place] * Hepatitis C Antibody w/Reflex to HCV RNA, Quantitative PCR (06/23/2024 7:44 AM EST) Hepatitis C Antibody NON-REACT ZAINA NON-REACT ZAINA 06/23/2024 9:10 PM EST [facility] Comment: HCV antibody was non-reactive. There is no laboratory evidence of HCV infection. In most cases, no further action is required. However, if recent HCV exposure is suspected, a test for HCV RNA (test code 50862) is suggested. For additional information please refer to http://education.Warply/faq/EUJ72b8 (This link is being provided for informational/ educational purposes only.) Blood Structure of peripheral vein / Unknown Venipuncture / Unknown 06/23/2024 7:44 AM EST 06/23/2024 7:45 AM EST Narrative [facility] - 06/23/2024 9:10 PM EST [facility] Received Date: Alex Brand MD LAB BLOOD ORDERABLES Fin al Result [facility] [address] [facility] [address], [place] [address], [place] [phone] [employer] [facility] [address] [facility] [address], [place] [address], [place] [phone] * [place] Top, Urine (06/22/2024 7:38 PM EST) Extra Tube Hold for add-ons. 06/23/2024 1:06 AM EST [employer] [facility] LABOR[facility] Comment:Auto resulted. Urine Urine specimen collection, clean catch / Unknown Non-Blood Collection / Unknown 06/22/2024 7:38 PM EST 06/22/2024 7:49 PM EST Alex Brand MD LAB URINE ORDERABLES Fin al Result [employer] [facility] LABORATORY [address] [place] [address], * (ABNORMAL) Urinalysis W/Reflex to Microscopic & Culture (06/22/2024 7:38 PM EST) Color, Urine Light Yellow Colorless, Light Yellow, Yellow, Dark Yellow 06/22/2024 8:17 PM EST [facility] Clarity, Urine Clear Clear 06/22/2024 8:17 PM EST [facility] Specific [place], Urine 1.020 1.005 - 1.030 06/22/2024 8:17 PM EST [facility] pH, Urine 6.0 4.6 - 8.0 06/22/2024 8:17 PM EST [facility] Development[facility] Protein, Urine Negative Negative 06/22/2024 8:17 PM EST [facility] Glucose, Urine 3+(A) Negative 06/22/2024 8:17 PM EST [facility] Ketones, Urine 1+(A) Negative 06/22/2024 8:17 PM EST [facility] Bilirubin, Urine Negative Negative 06/22/2024 8:17 PM EST [facility] [employer] Blood, Urine 2+(A) Negative 06/22/2024 8:17 PM EST [facility] Nitrite, Urine Negative Negative 06/22/2024 8:17 PM EST [employer] [facility] Urobilinogen, Urine Normal Normal 06/22/2024 8:17 PM EST [employer] [facility] Leukocyte Esterase, Urine Negative Negative 06/22/2024 8:17 PM EST [employer] [facility] WBC, Urine <1 0 - 2 /HPF 06/22/2024 8:17 PM EST [employer] [facility] RBC, Urine <1 0 - 2 /HPF 06/22/2024 8:17 PM EST [employer] [facility] Hyaline Casts, Urine 0 0 - 2 /LPF 06/22/2024 8:17 PM EST [employer] [facility] Bacteria, Urine None None /HPF /HPF 06/22/2024 8:17 PM EST [employer] [facility] Urine Urine specimen collection, clean catch / Unknown Non-Blood Collection / Unknown 06/22/2024 7:38 PM EST 06/22/2024 7:49 PM EST us Alex Brand MD LAB URINE ORDERABLES Fin al Result [facility] LABORATORY [address] [place], [place] [id number], * Blood Culture, Peripheral #2 (06/22/2024 6:42 PM EST) Only the most recent of2 resultswithin the time period is included. Culture No growth after 5 days 06/27/2024 10:22 PM EST [employer] [facility] Blood Structure of peripheral vein / Unknown Venipuncture / Unknown 06/22/2024 6:42 PM EST 06/22/2024 7:04 PM EST [facility] 06/27/2024 10:22 PM EST [facility] Received Date: MICRO NUMBER: [id number] SPECIMEN QUALITY: Suboptimal SOURCE: BLOOD VENOUS, PERIPHERAL STATUS: FINAL COMMENT: Aerobic and anaerobic bottle received. Inspection of blood culture bottles indicates that an inadequate volume of blood may have been collected for the detection of sepsis. Alex Brand MD LAB MICROBIOLOGY - GENER AL ORDERABLES Final Result [facility] [address], [place] [address], [place] [phone] [employer] [facility] [address], [place] [address], [place] [phone] * X-Ray Hand Left 3+ Views (06/22/2024 [...] obtain the completed interpretation. ? Workstation ID: [id number] Narrative 06/22/2024 2:06 PM EST COMPARISON: ??None. ?? FINDINGS AND Resulting Agency Comment [id number] Procedure Note Antonia Wayne MD - 06/22/2024 COMPARISON: None. FINDINGS AND IMPRESSION: No acute fracture or dislocation. Alignment and joint spaces aremaintained. Soft tissues are within normal limits. If this radiology report contains a blank impression section, it is anincomplete radiology report. Please contact the interpreting radiologistor applicable radiology division as soon as possible to obtain thecompleted interpretation. Workstation ID: [id number] Sofía Hardy MD IMG XR PROCEDURES Final Res ult * ECG 12 lead (06/22/2024 1:31 PM EST) Only the most recent of2 resultswithin the time period is included. Ventricular Rate EKG 86 BPM MUSE EKG Atrial Rate 86 BPM MUSE EKG NH Interval 132 ms MUSE EKG QRS Interval 90 ms MUSE EKG QT Interval 362 ms MUSE EKG QTC Interval 433 ms MUSE EKG P Conway 53 degrees MUSE EKG R [place] 30 degrees MUSE EKG T Wave [place] 33 degrees MUSE EKG 06/22/2024 1:31 PM EST 07/01/2024 12:59 PM EST Impressions MUSE EKG - 07/01/2024 12:59 PM EST NORMAL SINUS RHYTHM NORMAL ECG WHEN COMPARED WITH ECG OF 22-JUN-2024 08:12, (UNCONFIRMED) PREVIOUS ECG HAS UNDETERMINED RHYTHM, NEEDS REVIEW Confirmed by Ulises Thompson ([id number]) on 07/01/2024 12:59:17 PM us Sofía Hardy MD ECG ORDERABLES Final Resul t MUSE EKG * Lactic Acid, Plasma (06/22/2024 10:59 AM EST) Lactic Acid 1.6 0.5 - 1.9 mmol/L 06/22/2024 11:47 AM EST [employer] [facility] Blood Structure of peripheral vein / Unknown Venipuncture / Unknown 06/22/2024 10:59 AM EST 06/22/2024 11:17 AM EST us Sofía Hardy MD LAB BLOOD ORDERABLES Final Result [employer] [facility] LABORATORY [address] [place] [address], * CT C-Spine WO Contrast (06/22/2024 8:55 [...] obtain the completed interpretation. ? Workstation ID: [id number] Up-to-date CT equipment and radiation dose reduction techniques were employed. CTDIvol: 26.2 - 70.4 mGy. DLP: 2128 mGy-cm. ??The following accession numbers are related to this dose report [id number]: [id number] Narrative 06/22/2024 9:50 AM EST COMPARISON: No [...] tissues are unremarkable. ?? Resulting Agency Comment [id number] Procedure Note Paulo Osuna DO - 06/22/2024 COMPARISON: No prior images [...] possible to obtain thecompleted interpretation. Workstation ID: [id number] Up-to-date CT equipment and radiation dose reduction techniques wereemployed. CTDIvol: 26.2 - 70.4 mGy. DLP: 2128 mGy-cm. The followingaccession numbers are related to this dose report [id number]: [id number] us Sofía Hrady MD IM CT PROCEDURES Final Res ult * CT [...] obtain the completed interpretation. ? Workstation ID: [id number] Up-to-date CT equipment and radiation dose reduction techniques were employed. CTDIvol: 26.2 - 70.4 mGy. DLP: 2128 mGy-cm. ??The following accession numbers are related to this dose report [id number]: [id number] Narrative 06/22/2024 9:48 AM EST TECHNIQUE: 3D [...] cells are well aerated. Resulting Agency Comment [id number] Procedure Note Paulo Osuna DO - 06/22/2024 TECHNIQUE: 3D volume-rendered reconstructions [...] possible to obtain thecompleted interpretation. Workstation ID: [id number] Up-to-date CT equipment and radiation dose reduction techniques wereemployed. CTDIvol: 26.2 - 70.4 mGy. DLP: 2128 mGy-cm. The followingaccession numbers are related to this dose report [id number]: [id number] us Sofía Hardy MD IM CT PROCEDURES Final Res ult * COVID-19, Flu A/B & RSV RNA PCR, Symptomatic (06/22/2024 8:10 AM EST) Pathologist [facility] [place] PCR, SARS CoV-2 RNA Not Detected Not Detected CEPHEID GEN[employer] 06/22/2024 8:57 AM EST [facility] Comment:A Not Detected (Nega [...] A RNA PCR Not Detected Not Detected CEPIPS Group[employer] GENEXPERT 06/22/2024 8:57 AM EST [facility] Comment:Negative results do not preclude infection and should not be used as the sole basis for diagnosis, treatment or other patient management decisions. Negative results must be combined with clinical observations, patient history, and/or epidemiological information. Flu B RNA PCR Not Detected Not Detected [employer] GENEXPERT 06/22/2024 8:57 AM EST [facility] Comment:Negative results do not preclude infection and should not be used as the sole basis for diagnosis, treatment or other patient management decisions. Negative results must be combined with clinical observations, patient history, and/or epidemiological information. RSV RNA PCR Not Detected Not Detected CEPHEID GENEXPERT 06/22/2024 8:57 AM EST [facility] Comment:Negative results do not preclude infection and should not be used as the sole basis for diagnosis, treatment or other patient management decisions. Negative results must be combined with clinical observations, patient history, and/or epidemiological information. Swab (Nares) Non-Blood Collection / Unknown 06/22/2024 8:10 AM EST 06/22/2024 8:10 AM EST Narrative [facility] - 06/22/2024 8:57 AM EST This test was developed, validated and its performance characteristics determined by [facility]. This test has not been cleared or approved by the U.S. Food and Drug Administration (FDA). FDA Policy for Diagnostic Tests for Coronavirus Disease-2019 during the Public Health Emergency issued August 04, 2019, is followed. Sofía Hardy MD LAB BODY FLUIDS AND STOOLS ORDERABLES Final Result Performing Organization Address City/[facility]/ZIP Co de Phone Number [facility] [address] [place] [address], * (ABNORMAL) Lactic Acid (w/Repeat if >2) - Sepsis (06/22/2024 8:08 AM EST) Pathologist [facility] [place] Lactic Acid 2.7(H) 0.5 - 1.9 mmol/L 06/22/2024 8:41 AM EST [facility] Blood Structure of peripheral vein / Unknown Venipuncture / Unknown 06/22/2024 8:08 AM EST 06/22/2024 8:13 AM EST Sofía Hardy MD LAB BLOOD ORDERABLES Final Result Performing Organization Address City/[facility]/ZIP Co de Phone Number [facility] [address] [place] [address], [place] * Lipase (06/22/2024 8:08 AM EST) Lipase 27 13 - 60 U/L 06/22/2024 8:48 AM EST [facility] Blood Structure of peripheral vein / Unknown Venipuncture / Unknown 06/22/2024 8:08 AM EST 06/22/2024 8:12 AM EST Sofía Hardy MD LAB BLOOD ORDERABLES Final Result Performing Organization Address City/[facility]/ZIP Co de Phone Number [facility] [address] [place] [address], [place] * Ethanol (06/22/2024 8:08 AM EST) Ethanol <10 <10 mg/dL 06/22/2024 8:45 AM EST [facility] Blood Structure of peripheral vein / Unknown Venipuncture / Unknown 06/22/2024 8:08 AM EST 06/22/2024 8:12 AM EST Sofía Hardy MD LAB BLOOD ORDERABLES Final Result Performing Organization Address City/[facility]/ZIP Co de Phone Number [facility] [address] [place] [address], * (ABNORMAL) CMP - Comprehensive Metabolic Panel (06/22/2024 8:08 AM EST) NA 138 135 - 145 mmol/L 06/22/2024 8:48 AM EST [facility] K 4.7 3.5 - 5.3 mmol/L 06/22/2024 8:48 AM EST [facility] Cl 97(L) 98 - 107 mmol/L 06/22/2024 8:48 AM EST [facility] CO2 16(L) 22 - 32 mmol/L 06/22/2024 8:48 AM EST [facility] Anion Gap 25(H) 5 - 15 06/22/2024 8:48 AM EST [facility] Glucose 235(H) 65 - 99 mg/dL 06/22/2024 8:48 AM EST [facility] Creatinine 1.30 0.60 - 1.30 mg/dL 06/22/2024 8:48 AM EST [facility] Calcium 9.3 8.6 - 10.5 mg/dL 06/22/2024 8:48 AM EST [facility] Total Protein 8.1(H) 6.0 - 8.0 g/dL 06/22/2024 8:48 AM EST [facility] Albumin 4.5 3.5 - 5.2 g/dL 06/22/2024 8:48 AM EST [facility] Bilirubin, Total 0.5 0.2 - 1.2 mg/dL 06/22/2024 8:48 AM EST [place] [facility] Alkaline Phosphatase 60 35 - 129 U/L 06/22/2024 8:48 AM EST [facility] AST 314(H) 10 - 40 U/L 06/22/2024 8:48 AM EST [place] [facility] ALT 142(H) 10 - 40 U/L 06/22/2024 8:48 AM EST [place] [facility] BUN 50(H) 7 - 23 mg/dL 06/22/2024 8:48 AM EST [place] [facility] eGFR 72 >=60 mL/min/1. 73m2 06/22/2024 8:48 AM EST [facility] Comment:The estimated glomer ular filtration rate (eGFR) is calculated using a new formula developed by the NKF-ASN task force to eliminate race-based correction factors. The new formula uses serum/plasma creatinine, age, and gender to determine eGFR. A value below 60mls/min might indicate kidney disease and will be flagged. For additional information, see Fuad galaviz al, Am J Kidney Dis. 2021;79(2):268- 288, A Unifying Approach for GFR estimation: Recommendations of the NKF-ASN Task Force on Reassessing the Inclusion of Race in Diagnosing Kidney Disease . Globulin, Total 3.6 2.1 - 4.2 g/dL 06/22/2024 8:48 AM EST [facility] A/G Ratio 1.3(L) 1.5 - 3.0 06/22/2024 8:48 AM EST [facility] Blood Structure of peripheral vein / Unknown Venipuncture / Unknown 06/22/2024 8:08 AM EST 06/22/2024 8:12 AM EST us Sofía Hardy MD LAB BLOOD ORDERABLES Final Result [facility] [address] [place] [address], [place] * XR Chest Portable 1 View [...] obtain the completed interpretation. ? Workstation ID: [id number] Narrative 06/22/2024 8:14 AM EST COMPARISON: None. FINDINGS: Lines/Tubes/Devices: None. Lungs: No consolidation or pulmonary edema. Pleura: No pleural effusion. No pneumothorax. Heart/Mediastinum: The cardiac and mediastinal contours are normal. Bones/Soft tissues: No acute osseous abnormality. Resulting Agency Comment [id number] Procedure Note Paulo Osuna DO - 06/22/2024 [...] possible to obtain thecompleted interpretation. Workstation ID: [id number] us Sofía Hardy MD IMG XR PROCEDURES Final Res ult * HEART & VASCULAR - SCANNED (06/22/2024) Anatomical Region Laterality Modality Other us Onbase Scan Paras SCANNED PROCEDURES Final Resu lt from Last 3 Months Insurance [facility] MEDICAID Advance Directives * Full Code (Latest Code Status on File) Date Activated Date Inactivated Comments 06/22/2024 2:22 PM 06/25/2024 11:13 PM Care Teams Applications Instructor Relationship Specialty Start Date End Date Dayne Dubose [address] [place] [address] [phone] PCP - General 06/25/24
[2024-07-03 15:08] LABS: MANUAL DIFF FLAG NO
[2024-07-03 15:10] LABS: Venous Blood Gas Refer to POC result
[2024-07-03 15:11] LABS: Basophils Percent Auto 0.1 % (0-2); Eosinophils Percent Auto 0.1 % (0-4); Hematocrit 34.5 % (42.0-52.0); Hemoglobin 11.3 g/dl (14.0-18.0); Imm Gran Abs Auto 0.06 X10*3/uL (0.00-0.03); Imm Gran Pct Auto 0.4 % (0.0-0.4); Lymphocytes Absolute Auto 2.1 X10*3/uL (1.2-4.9); Lymphocytes Percent Auto 15.8 % (20-40); Mean Corpuscular HGB Conc 32.8 g/dl (31.0-36.0); Mean Corpuscular Hemoglobin 25.3 pg (27.0-33.0); Mean Corpuscular Volume 77.2 fL (80.0-98.0); Mean Platelet Volume 9.8 fL (9.4-12.4); Monocytes Absolute Auto 0.7 X10*3/uL (0.1-1.2); Monocytes Percent Auto 5.5 % (2-11); Neutrophils Absolute Auto 10.5 x10*3/uL (2.0-8.3); Neutrophils Percent Auto 78.1 % (45-73); Platelet Count 400 X10*3/uL (160-400); Red Blood Count 4.47 X10*6/uL (4.60-5.80); White Blood Count 13.5 X10*3/uL (4.8-10.8)
[2024-07-03] MEDS: Acetaminophen 1,000 MG/100 ML PIGGYBACK 400 MG IV (15:11)
[2024-07-03 15:12] LABS: VBG Base Excess 7.6 mmol/L; VBG HCO3 33 mmol/L (22-26); VBG pCO2 49 mmHg; VBG pH 7.43 (7.32-7.43); VBG pO2 25 mmHg
[2024-07-03 15:14] VITALS: TEMP 37.7
[2024-07-03 15:24] LABS: Lactic Acid 1.3 mmol/L (0.5-2.0)
[2024-07-03 15:32] LABS: Beta-Hydroxybutyrate 0.14 mmol/L (0.02-0.27)
[2024-07-03 15:42] LABS: Alanine Aminotransferase 50 U/L (0-40); Albumin Level 4.2 g/dL (3.5-5.0); Anion Gap 14 (12-20); Aspartate Amino Transferase 32 U/L (5-37); Bilirubin Direct 0.3 mg/dL (0.0-0.5); Bilirubin Total 0.8 mg/dL (0.0-1.0); Blood Urea Nitrogen 16 mg/dL (9-16); Calcium 9.7 mg/dL (8.4-10.2); Carbon Dioxide 27 mmol/L (22-29); Chloride 100 mmol/L (96-108); Creatinine Clr Calc Pharmacy 81.8; Estimated Glomerular Filt Rate > 60; Ethanol < 10 mg/dL; Glucose Random 365 mg/dL (60-115); Potassium 4.4 mmol/L (3.3-5.1); Sodium 137 mmol/L (135-145); Total Protein 8.7 g/dL (6.5-8.0)
[2024-07-03 15:52] LABS: Glucose, Whole Blood 309 mg/dL (60-115)
[2024-07-03 15:52] LABS: Appearance Urine Clear; Color Urine Yellow; Glucose Urine UA >=1000 mg/dL (Negative); Leukocyte Esterase Urine Negative (Negative); Nitrite Urine Negative (Negative); PH 6.5 (5.0-9.0); Specific Gravity - Urine >= 1.030 (1.005-1.025); UMIC TRIGGER UACC YES; Urine Blood Negative (Negative); Urine Ketones Negative (Negative); Urine Protein Negative (Neg-Trace)
[2024-07-03 15:56] LABS: Influenza A PCR NEGATIVE (Negative); Influenza B PCR NEGATIVE (Negative); Resp Syncy Virus RNA Qual PCR NEGATIVE (Negative); SARS COV2 PCR INHOUSE NEGATIVE (Negative)
[2024-07-03 16:01] LABS: Amphetamine Screen Urine Not Detected (Not Detect); Barbiturates, Urine Not Detected (Not Detect); Benzodiazepines Screen Urine Not Detected (Not Detect); Buprenorphine Scr Not Detected (Not Detect); Cannabinoid Screen Urine Not Detected (Not Detect); Cocaine Screen Urine POSITIVE (Not Detect); Fentanyl, urine Not Detected (Not Detect); Methadone Screen, Urine Not Detected (Not Detect); Opiate Screen Urine Not Detected (Not Detect); Oxycodone Screen Urine Not Detected (Not Detect); Phencyclidine Screen Urine Not Detected (Not Detect)
[2024-07-03 16:18] LABS: Bacteria Urine None Seen (None Seen); Hyaline Casts Urine 0-2 /LPF (0-2); RBC Urine 0-2 /HPF (0-2); Squamous Epithelial Cell Urine 0-2 /HPF (0-2); WBC Urine 0-5 /HPF (0-5)
[2024-07-03] MEDS: vancomycin/NS 2,000 MG/500 ML PLAST..BAG 250 MG IV (16:35)
[2024-07-03 17:03] LABS: Glucose, Whole Blood 335 mg/dL (60-115)
[2024-07-03 17:12] VITALS: BP 120/60; PULSE 94; RESP 18; O2SAT 100
--- NOTE | 2024-07-03 17:21 | PM.IMHP ---
History of Present Illness Date of Service: 07/03/24 Attending physician on admission: Cinthia Espinoza Chief Complaint: Suicidal ideation Pt is a 39-year-old male with a PMH significant for?insulin-dependent type 2 diabetes with hyperglycemia and noncompliant with insulin, cardiomyopathy, polysubstance use disorder, and schizophrenia who presents to the ED from home with command auditory hallucinations telling him to harm himself. Pt presented from his mother's where he was hearing voices that told him to choke himself. Ten days prior pt was found by a bystander on the ground outside after an intentional overdose on alcohol, crack cocaine, and fentanyl. Unknown downtime. Was found to be hypothermic with a core temperature of 90.5 degrees and had frostbite on bilateral toes. At that time was treated for rhabdomyolysis and seen and evaluated by Wound Care and Plastic surgery who did not think pt required any surgical intervention at that time. Pt was then transferred to Psychiatric unit here at [facility] and seen by wound care. At that time pt's feet showed blistering but skin was intact (see pictures in hospitalist chart on 06/26/2024). Pt was then discharged from 2 days ago on 07/01/2024. Pt reports since discharge pt reports smoking crack cocaine with last use last night. Noted that when he took his shoes off last night he noticed that the skin was peeling away especially right foot. Reports feet are more numb than painful, but states has had difficulty walking. He has had subjective fever and chills. No nausea, vomiting, abdominal pain. Denies shortness or breath or difficulty breathing. No chest pain/pressure, palpitations. Pt reports has been noncompliant with home medications since discharge. Reports long noncompliance with insulin. He is unable to state when he last took insulin in the community. In the ED pt with low-grade fever of 99.9 and tachycardic up to 98. Labs were significant for leukocytosis of 13.5, initial glucose 449, and ALT 50. Stable microcytic anemia of 11.3/34.5. No significant electrolyte abnormalities. Renal function WNL. Lactic acid WNL at 1.3. Tested negative for flu, COVID, RSV. Right foot x-ray with findings concerning for possible early osteomyelitis of distal hallux phalanx and soft tissue ulceration of lateral plantar hallux with small subcutaneous foci of gas. Pt was treated with IVF, acetaminophen, vanc, and Zosyn. Pt will be admitted to the hospital for treatment and further evaluation of left foot cellulitis with sepsis secondary to frostbite and uncontrolled diabetes concerning for early osteomyelitis. Review of Systems Review of Systems: Negative except for that which is stated in the [facility] Medical History (Updated 07/05/24 @ 01:14 by Erin Mckinney RN) Sleep apnea Medical clearance for psychiatric admission Routine history and physical examination of adult Cardiomyopathy Cocaine abuse Cannabis abuse Diabetes Schizophrenia, chronic condition Family History Other No family history of coronary artery disease Surgical History No pertinent past surgical history Social History Household Members: None Housing: Homeless Do you presently have visiting nurse or other home services: No Alcohol intake: current Alcohol intake frequency: does not drink Comment: pt has a patient observer at all times Patient Tobacco Use Status: Current everyday Tobacco user Tobacco use type: Cigarette Cigarette Packs Per Day: 1 Cigarettes Per Day: 1 e-Cigarette/Vaping Use: Never Used Substance Use Type: Crack/Cocaine and Marijuana service: No Sexual orientation: Straight/Heterosexual Meds Allergies Allergy/AdvReac Type Severity Reaction Status Date / Time codeine AdvReac Unknown Unknown Verified 07/03/24 13:44 Physical Exam Vital Signs and Narrative: Vital Signs: Last Vital Signs Temp 99.9 F 07/03/24 15:14 Pulse 96 07/03/24 13:38 Resp 18 07/03/24 13:38 BP 119/97 H 07/03/24 13:38 Pulse Ox 100 07/03/24 13:38 O2 Del Method Room Air 07/03/24 13:38 BMI result Body Mass Index 25.1 General: AOx3, somnolent but arousable. In no acute distress Resp: CTA bilaterally CVS: S1, S2, RRR GI: +BS, NT, no distention Skin: Warm, dry Neuro: Cranial nerves II-XII grossly intact bilaterally. Motor grossly intact bilaterally Extremities: 2+ DP pulses. Diminished sensation to light of toes bilaterally. Left foot with erythema warmth, tenderness, and multiple areas skin desquamation on all toes. As pictured below. Psych: Flat affect. Cooperative. Results Labs 07/05/24 06:10 07/05/24 06:10 Labs: Laboratory Results - last 24 hr 07/03/24 07/03/24 07/03/24 13:38 14:55 14:58 MCV 77.2 L MCH 25.3 L MCHC 32.8 RDW 16.0 Plt Count 400 D MPV 9.8 Immature Gran % (Auto) 0.4 Neut % (Auto) 78.1 H Lymph % (Auto) 15.8 L [place] % (Auto) 5.5 Eos % (Auto) 0.1 Baso % (Auto) 0.1 Lymph # (Auto) 2.1 [place] # (Auto) 0.7 Eos # (Auto) 0.0 Baso # (Auto) 0.0 Abs Immat Gran (auto) 0.06 H Absolute Neuts (auto) 10.5 H Absolute Nucleated RBC 0.000 Nucleated RBC % (auto) 0.0 VBG pH VBG pCO2 VBG pO2 VBG HCO3 VBG O2 Saturation VBG Base Excess Anion Gap 14 Estim Creat Clear Calc 81.8 Estimated GFR > 60 POC Glucose 449 H* Random Glucose 365 H* Lactic Acid 1.3 Calcium 9.7 Magnesium 2.0 Total Bilirubin 0.8 Direct Bilirubin 0.3 AST 32 ALT 50 H Total Protein 8.7 H Albumin 4.2 Beta-Hydroxybutyrate 0.14 Urine Color Urine Appearance Urine pH Ur Specific [place] Urine Protein Urine Glucose (UA) Urine Ketones Urine Blood Urine Nitrite Ur Leukocyte Esterase Urine RBC Urine WBC Ur Squamous Epith Cells Urine Bacteria Hyaline Casts Urine Opiates Screen Ur Buprenorphine Scrn Ur Oxycodone Screen Urine Methadone Screen Urine Fentanyl Screen Ur Barbiturates Screen Ur Phencyclidine Scrn Ur Amphetamines Screen U Benzodiazepines Scrn Urine Cocaine Screen U Marijuana (THC) Screen Ethyl Alcohol < 10 Influenza Type A (PCR) NEGATIVE Influenza Type B (PCR) NEGATIVE RSV RNA Qual (PCR) NEGATIVE SARS-CoV-2 RNA (RT-PCR) NEGATIVE 07/03/24 07/03/24 07/03/24 15:05 15:44 15:48 MCV MCH MCHC RDW Plt Count MPV Immature Gran % (Auto) Neut % (Auto) Lymph % (Auto) [place] % (Auto) Eos % (Auto) Baso % (Auto) Lymph # (Auto) [place] # (Auto) Eos # (Auto) Baso # (Auto) Abs Immat Gran (auto) Absolute Neuts (auto) Absolute Nucleated RBC Nucleated RBC % (auto) VBG pH 7.43 VBG pCO2 49 VBG pO2 25 VBG HCO3 33 H VBG O2 Saturation 30.0 VBG Base Excess 7.6 Anion Gap Estim Creat Clear Calc Estimated GFR POC Glucose 309 H Random Glucose Lactic Acid Calcium Magnesium Total Bilirubin Direct Bilirubin AST ALT Total Protein Albumin Beta-Hydroxybutyrate Urine Color Yellow Urine Appearance Clear Urine pH 6.5 Ur Specific [place] >= 1.030 H Urine Protein Negative Urine Glucose (UA) >=1000 H Urine Ketones Negative Urine Blood Negative Urine Nitrite Negative Ur Leukocyte Esterase Negative Urine RBC 0-2 Urine WBC 0-5 Ur Squamous Epith Cells 0-2 Urine Bacteria None Seen Hyaline Casts 0-2 Urine Opiates Screen Not Detected Ur Buprenorphine Scrn Not Detected Ur Oxycodone Screen Not Detected Urine Methadone Screen Not Detected Urine Fentanyl Screen Not Detected Ur Barbiturates Screen Not Detected Ur Phencyclidine Scrn Not Detected Ur Amphetamines Screen Not Detected U Benzodiazepines Scrn Not Detected Urine Cocaine Screen POSITIVE H U Marijuana (THC) Screen Not Detected Ethyl Alcohol Influenza Type A (PCR) Influenza Type B (PCR) RSV RNA Qual (PCR) SARS-CoV-2 RNA (RT-PCR) 07/03/24 17:00 MCV MCH MCHC RDW Plt Count MPV Immature Gran % (Auto) Neut % (Auto) Lymph % (Auto) [place] % (Auto) Eos % (Auto) Baso % (Auto) Lymph # (Auto) [place] # (Auto) Eos # (Auto) Baso # (Auto) Abs Immat Gran (auto) Absolute Neuts (auto) Absolute Nucleated RBC Nucleated RBC % (auto) VBG pH VBG pCO2 VBG pO2 VBG HCO3 VBG O2 Saturation VBG Base Excess Anion Gap Estim Creat Clear Calc Estimated GFR POC Glucose 335 H Random Glucose Lactic Acid Calcium Magnesium Total Bilirubin Direct Bilirubin AST ALT Total Protein Albumin Beta-Hydroxybutyrate Urine Color Urine Appearance Urine pH Ur Specific [place] Urine Protein Urine Glucose (UA) Urine Ketones Urine Blood Urine Nitrite Ur Leukocyte Esterase Urine RBC Urine WBC Ur Squamous Epith Cells Urine Bacteria Hyaline Casts Urine Opiates Screen Ur Buprenorphine Scrn Ur Oxycodone Screen Urine Methadone Screen Urine Fentanyl Screen Ur Barbiturates Screen Ur Phencyclidine Scrn Ur Amphetamines Screen U Benzodiazepines Scrn Urine Cocaine Screen U Marijuana (THC) Screen Ethyl Alcohol Influenza Type A (PCR) Influenza Type B (PCR) RSV RNA Qual (PCR) SARS-CoV-2 RNA (RT-PCR) Imaging Radiologist's Impressions: Impressions Foot X-Ray 07/03/24 13:56 IMPRESSION: No acute bony abnormalities. No radiographic evidence of osteomyelitis. Electronically signed by: Quintin Sanchez MD 07/03/2024 04:53 PM EST RP Foot X-Ray 07/03/24 13:56 IMPRESSION: 1. Findings of focal osteopenia, which could relate to early osteomyelitis distal phalanx of the hallux, lateral aspect. 2. Soft tissue ulceration suspected in the lateral plantar hallux, with small subcutaneous foci of gas present Electronically signed by: Quintin Sanchez MD 07/03/2024 04:56 PM EST RP Assessment and Plan (1) Osteomyelitis: Status: Acute (2) Suicide ideation: Status: Acute (3) Cellulitis: Status: Acute Plan Pt is a 39-year-old male with a PMH significant for?insulin-dependent type 2 diabetes with hyperglycemia and noncompliant with insulin, cardiomyopathy, polysubstance use disorder, and schizophrenia who presents to the ED from home with command auditory hallucinations telling him to harm himself. Pt will be admitted to the hospital for treatment and further evaluation of left foot cellulitis with sepsis secondary to frostbite and uncontrolled diabetes concerning for early osteomyelitis. Left foot cellulitis with sepsis concerning for osteomyelitis Secondary to frostbite from 06/22/2024 and uncontrolled diabetes Elevated ESR, CRP, x-ray concerning for early osteomyelitis Meets sepsis criteria with tachycardia and leukocytosis; lactic acid WNL Pt received IVF and started on broad-spectrum antibiotics in the ED Will treat with vancomycin and Zosyn, started 07/03/2024 We will get MRI of right foot General surgery consult Suicidal ideation Pt with long hx of schizophrenia, reports hearing voices telling him to kill himself by choking Pt just discharged from [facility] 2 days prior on 07/01/2024 One-to-one sitter Continue home mood stabilizers Psychiatric consult once medically cleared Insulin-dependent type 2 diabetes, uncontrolled The pt initially hyperglycemic at 04:49 at time of presentation Has not been taking outpatient medications or using insulin for some time Pt given regular insulin IV 5 units in the ED Will place on sliding scale insulin, Lantus 10 units at bedtime Diabetic diet Full Code Attending:?Dr. Espinoza DVT Prophylaxis: Pneumatic compression due to possible surgical intervention Pt will require a hospitalization of at least two nights for treatment of?left foot cellulitis with sepsis secondary to frostbite and uncontrolled diabetes concerning for early osteomyelitis. Pt require hospital level of care for administration of IV antibiotics and specialist consultation with General surgery. Quality Stroke Does the patient have a stroke diagnosis?: No VTE Prior VTE?: No VTE Risk Level:: Medical - moderate - high VTE Device Contraindication: N/A - Device Ordered VTE Drug Contraindication: Treatment Not Indicated
[2024-07-03 17:31] VITALS: BP 108/51; PULSE 98; RESP 18; O2SAT 98
[2024-07-03 17:38] LABS: Alkaline Phosphatase 58 U/L (39-117)
[2024-07-03 17:53] LABS: C Reactive Protein 20.35 mg/dL (< or = 0.50)
[2024-07-03] MEDS: Insulin Lispro 100 UNIT/ML 3 ML VIAL SUBCUT ×2 (18:17→22:31)
[2024-07-03 18:27] LABS: Erythrocyte Sedimentation Rate 48 MM/HR (0-15)
--- NOTE | 2024-07-03 18:40 | PHA.PROG ---
Admission Date/Time: July 03, 2024 18:15 Indication: Bone Weight in k.647 kg Adjusted body weight in Kg: [place] body weight in Kg: Obesity Dosing Indication % IBW: Serum Creatinine - Last 168 Hours 07/03/24 14:58 Creatinine 1.29 Estimated CrCl and GFR - Last 168 Hours 07/03/24 14:58 Estim Creat Clear Calc 81.8 Estimated GFR > 60 Vancomycin Loading Dose: 2000mg Current Vancomycin Dosing Regimen: 1000 Q12H Vancomycin Monitoring using AUC goal of 400 - 600 range with trough as surrogate marker: 540 mg/L Date and Time for next Vancomycin Level to be drawn: 07/05/24 @1500 Pharmacist Comments on Vancomycin Plan: Vancomycin dosing will take advantage of [employer] as a clinical decision support tool that uses Bayesian modeling to calculate individual patient's pharmacokinetic parameters and forecast the patient's drug concentration time course with the target goal AUC 24 range of 400 - 600 mg/L/hr.
--- NOTE | 2024-07-03 20:03 | PHA.MEDREC ---
Pharmacy Consult ? Medication Reconciliation Pharmacy has completed the medication reconciliation. med rec done using claims history and discharge from this facility on 07/01/24. pt poor historian and unsure of what he is taking at this time.
[2024-07-03] MEDS: gadobutroL 10 ML VIAL IVPUSH (21:00)
--- NOTE | 2024-07-03 21:17 | PC.NURSE ---
PT back from MRI
[2024-07-03 21:57] LABS: Glucose, Whole Blood 295 mg/dL (60-115)
[2024-07-03] MEDS: Insulin Glargine,Hum.rec.anlog 100 UNIT/ML 10 ML VIAL 10 UNIT SUBCUT (22:30)
[2024-07-04] VITALS (8 sets, daily range): BP systolic 100–123; BP diastolic 54–76; PULSE 73–89; RESP 14–19; TEMP 36.5–37.3; O2SAT 98–99
[2024-07-04] MEDS: 0.9 % Sodium Chloride Flush 3 ML SYRINGE IVFLUSH ×3 (02:49→16:12)
[2024-07-04] MEDS: Piperacillin Sodium/Tazobactam 3.375 GM in 0.9 % Sodium Chloride 50 ML IV ×4 (02:49→20:00)
[2024-07-04] MEDS: Acetaminophen 325 MG TABLET 650 MG PO ×3 (03:12→19:58)
[2024-07-04] MEDS: vancomycin HCL 1,000 MG in 0.9 % Sodium Chloride 250 ML 270 MG IV ×2 (05:14→16:11)
[2024-07-04 07:25] LABS: Creatinine Clr Calc Pharmacy 98.7; Estimated Glomerular Filt Rate > 60
[2024-07-04 07:43] LABS: Glucose, Whole Blood 295 mg/dL (60-115)
[2024-07-04] MEDS: Insulin Lispro 100 UNIT/ML 3 ML VIAL SUBCUT ×3 (07:48→16:13)
[2024-07-04] MEDS: HaloperidoL 5 MG TABLET 10 MG PO ×2 (09:05→20:00)
[2024-07-04] MEDS: cloNIDine HCL 0.1 MG TABLET PO ×2 (09:06→20:00)
--- NOTE | 2024-07-04 10:00 | PM.CNGS ---
History of Present Illness Consult details Consult date: 07/04/24 Requesting physician: Cinthia Espinoza Narrative: 39-year-old male with a PMH significant for insulin-dependent type 2 diabetes with hyperglycemia and noncompliant with insulin, cardiomyopathy, polysubstance use disorder, and schizophrenia who presented to the ED from home with auditory hallucinations telling him to harm himself. He was discharged from on 07/01/24 where he was being treated following an intentional overdose on alcohol, crack cocaine, and fentanyl found on the ground by a bystander with unknown downtime. He was hypothermic with a core temperature of 90.5 degrees and had frostbite on bilateral toes and during that admission he was being treated at another hospital for rhabdomyolysis. He was seen and evaluated by Wound Care and Plastic surgery during that admission who did not think pt required any surgical intervention at that time. At presentation he reported some pain and numbness of his feet and difficulty ambulating. Pt was admitted to the hospital for treatment and further evaluation of right foot cellulitis with sepsis secondary to frostbite and uncontrolled diabetes. He was started on IV vancomycin and zosyn. Right foot x-ray with findings concerning for possible early osteomyelitis of distal hallux phalanx and soft tissue ulceration of lateral plantar hallux with small subcutaneous foci of gas. Right foot MRI therefore obtained which shows no evidence of osteomyelitis but a small abscess along the sesamoids with subcutaneous edema throughout the foot. General surgery was therefore consulted. Review of Systems Review of Systems: Yes all other systems are reviewed and are negative PMFSH Past Medical History Medical History Medical clearance for psychiatric admission Routine history and physical examination of adult Cardiomyopathy Cocaine abuse Cannabis abuse Diabetes Schizophrenia, chronic condition Family History Family History Other No family history of coronary artery disease Surgical History Surgical History No pertinent past surgical history Social History Social History Household Members: None Housing: Homeless Do you presently have visiting nurse or other home services: No Alcohol intake: current Alcohol intake frequency: a few times a week Comment: pt has a patient observer at all times Patient Tobacco Use Status: Never used Tobacco Tobacco use type: Cigarette Cigarette Packs Per Day: 1 Cigarettes Per Day: 20.0 Smoked in Last 30 Days: Yes e-Cigarette/Vaping Use: Never Used Use of substances other than those prescribed or required for medical reasons: Yes Substance Use Type: Crack/Cocaine Last Used Substance: Just Prior to Admission Advance Directives: No Advance Directives Information Provided: No Do you have a plan to hurt others: No Plan Nutrition Risks: No Nutritional Risk service: No Sexual orientation: Straight/Heterosexual Meds Allergies Allergy/AdvReac Type Severity Reaction Status Date / Time codeine AdvReac Unknown Unknown Verified 07/03/24 13:44 Active Medications: Current Medications Acetaminophen (Acetaminophen 325 Mg Tablet) 650 mg PO Q6H PRN PRN Reason: Pain, Mild 1-3,fever,headache Last Admin: 07/04/24 03:12 Dose: 650 mg Benztropine Mesylate (Benztropine Mesylate 1 Mg Tablet) 1 mg PO BEDTIME [facility] Calcium Carbonate (Calcium Carbonate 750 Mg Tab.Chew) 750 mg PO Q4H PRN PRN Reason: Heartburn Clonidine HCl (Clonidine Hcl 0.1 Mg Tablet) 0.1 mg PO BID [facility]; Protocol Last Admin: 07/04/24 09:06 Dose: 0.1 mg Dextrose (Dextrose 50 % 25 Gm/50 Ml Syringe) 25 gm IVPUSH Q15M PRN; Protocol PRN Reason: per Hypoglycemia Standing Ord. Glucose (Glucose Gel 15 Gm Gel..Gram.) 15 gm PO Q15M PRN; Protocol PRN Reason: per Hypoglycemia Standing Ord. Haloperidol (Haloperidol 5 Mg Tablet) 10 mg PO BID [facility] Last Admin: 07/04/24 09:05 Dose: 10 mg Hydroxyzine HCl (Hydroxyzine Hcl 25 Mg Tablet) 25 mg PO Q6H PRN PRN Reason: Anxiety Piperacillin Sod/Tazobactam (Sod 3.375 gm/ Sodium Chloride) 50 mls @ 100 mls/hr IV Q6H [facility] Last Infusion: 07/04/24 08:20 Dose: Infused Vancomycin HCl 1,000 mg/ (Sodium Chloride) 270 mls @ 270 mls/hr IV Q12H [facility] Last Infusion: 07/04/24 07:05 Dose: Infused Insulin Glargine (Insulin Glargine,Hum.Rec.Anlog 100 Unit/Ml 10 Ml Vial) 10 unit SUBCUT BEDTIME [facility] Last Admin: 07/03/24 22:30 Dose: 10 unit Insulin Human Lispro (Insulin Lispro 100 Unit/Ml 3 Ml Vial) 0 unit SUBCUT QIDACHS [facility]; Protocol Last Admin: 07/04/24 07:48 Dose: 6 unit Magnesium Hydroxide (Milk Of Magnesia 30 Ml Oral.Susp) 30 ml PO DAILY PRN PRN Reason: Constipation Melatonin (Melatonin 3 Mg Tablet) 6 mg PO BEDTIME PRN PRN Reason: Insomnia Nicotine Polacrilex (Nicotine Polacrilex 2 Mg Gum) 4 mg BUCCAL Q2H PRN PRN Reason: nicotine cravings Pharmacy Consult (Consult Rx Vancomycin Dosing) 1 each MISCELLANE DAILY PRN PRN Reason: Consult order Quetiapine Fumarate (Quetiapine Fumarate 100 Mg Tablet) 100 mg PO BEDTIME [facility] Sodium Chloride (0.9 % Sodium Chloride Flush 3 Ml Syringe) 3 ml IVFLUSH QSHIFT [facility] Last Admin: 07/04/24 08:21 Dose: 3 ml Physical Exam Vital Signs: Vital Signs: Last Vital Signs Temp 98.5 F 07/04/24 08:00 Pulse 83 07/04/24 08:00 Resp 18 07/04/24 08:00 BP 118/76 07/04/24 09:06 Pulse Ox 99 07/04/24 08:00 O2 Del Method Room Air 07/04/24 08:00 BMI result Body Mass Index 25.1 Const: General: comfortable, no acute distress and alert Orientation/consciousness: patient oriented x3 Resp: Effort & Inspection: normal respiratory effort Neuro: General: patient oriented x3 and moves all extremities Extrem: Other: right foot with desquamation of dorsal aspect of almost all toes, first toe nearly mummified; plantar aspect with diffuse edema of entire foot and edema of MTP joint dorsal aspect, very boggy area overlying first metatarsal head extending proximally and distally which correlates with area of abscess with MRI, no significant erythema of area left foot with desquamation of dorsal aspect of first toe, bogginess of plantar Psych: Affect: Blunted affect present Results Labs 07/03/24 14:58 07/04/24 06:55 Labs: Abnormal lab results 07/03/24 07/03/24 07/03/24 Range/Units 13:38 14:58 15:05 WBC 13.5 H (4.8-10.8) X10*3/uL RBC 4.47 L (4.60-5.80) X10*6/uL Hgb 11.3 L (14.0-18.0) g/dl Hct 34.5 L (42.0-52.0) % MCV 77.2 L (80.0-98.0) fL MCH 25.3 L (27.0-33.0) pg Neut % (Auto) 78.1 H (45-73) % Lymph % (Auto) 15.8 L (20-40) % Abs Immat Gran (auto) 0.06 H (0.00-0.03) X10*3/uL Absolute Neuts (auto) 10.5 H (2.0-8.3) x10*3/uL ESR 48 H (0-15) MM/HR VBG HCO3 33 H (22-26) mmol/L POC Glucose 449 H* (60-115) mg/dL Random Glucose 365 H* (60-115) mg/dL ALT 50 H (0-40) U/L C-Reactive Protein 20.35 H (< or = 0.50) mg/dL Total Protein 8.7 H (6.5-8.0) g/dL Ur Specific [place] (1.005-1.025) Urine Glucose (UA) (Negative) mg/dL Urine Cocaine Screen (Not Detect) 07/03/24 07/03/24 07/03/24 Range/Units 15:44 15:48 17:00 WBC (4.8-10.8) X10*3/uL RBC (4.60-5.80) X10*6/uL Hgb (14.0-18.0) g/dl Hct (42.0-52.0) % MCV (80.0-98.0) fL MCH (27.0-33.0) pg Neut % (Auto) (45-73) % Lymph % (Auto) (20-40) % Abs Immat Gran (auto) (0.00-0.03) X10*3/uL Absolute Neuts (auto) (2.0-8.3) x10*3/uL ESR (0-15) MM/HR VBG HCO3 (22-26) mmol/L POC Glucose 309 H 335 H (60-115) mg/dL Random Glucose (60-115) mg/dL ALT (0-40) U/L C-Reactive Protein (< or = 0.50) mg/dL Total Protein (6.5-8.0) g/dL Ur Specific [place] >= 1.030 H (1.005-1.025) Urine Glucose (UA) >=1000 H (Negative) mg/dL Urine Cocaine Screen POSITIVE H (Not Detect) 07/03/24 07/04/24 Range/Units 21:54 07:39 WBC (4.8-10.8) X10*3/uL RBC (4.60-5.80) X10*6/uL Hgb (14.0-18.0) g/dl Hct (42.0-52.0) % MCV (80.0-98.0) fL MCH (27.0-33.0) pg Neut % (Auto) (45-73) % Lymph % (Auto) (20-40) % Abs Immat Gran (auto) (0.00-0.03) X10*3/uL Absolute Neuts (auto) (2.0-8.3) x10*3/uL ESR (0-15) MM/HR VBG HCO3 (22-26) mmol/L POC Glucose 295 H 295 H (60-115) mg/dL Random Glucose (60-115) mg/dL ALT (0-40) U/L C-Reactive Protein (< or = 0.50) mg/dL Total Protein (6.5-8.0) g/dL Ur Specific [place] (1.005-1.025) Urine Glucose (UA) (Negative) mg/dL Urine Cocaine Screen (Not Detect) Short CBC 07/03/24 Range/Units 14:58 WBC 13.5 H (4.8-10.8) X10*3/uL Hgb 11.3 L (14.0-18.0) g/dl Hct 34.5 L (42.0-52.0) % Plt Count 400 D (160-400) X10*3/uL BMP 07/03/24 07/04/24 14:58 06:55 Sodium 137 Potassium 4.4 Chloride 100 Carbon Dioxide 27 BUN 16 Creatinine 1.29 1.07 Calcium 9.7 Liver Function 07/03/24 Range/Units 14:58 Total Bilirubin 0.8 (0.0-1.0) mg/dL Direct Bilirubin 0.3 (0.0-0.5) mg/dL AST 32 (5-37) U/L ALT 50 H (0-40) U/L Alkaline Phosphatase 58 (39-117) U/L Albumin 4.2 (3.5-5.0) g/dL Urine 07/03/24 Range/Units 15:44 Urine Color Yellow Urine Appearance Clear Urine pH 6.5 (5.0-9.0) Ur Specific [place] >= 1.030 H (1.005-1.025) Urine Protein Negative (Neg-Trace) mg/dL Urine Glucose (UA) >=1000 H (Negative) mg/dL All other labs normal. Assessment and Plan (1) Foot abscess, right: Status: Acute Plan 39-year-old male with a PMH significant for insulin-dependent type 2 diabetes with hyperglycemia and noncompliant with insulin, cardiomyopathy, polysubstance use disorder, and schizophrenia admitted for right foot cellulitis, uncontrolled diabetes. MRI shows abscess of right foot at sesamoid bone on plantar and dorsal aspect with very boggy area correlating to this area on exam. Will return for I&D of this area later today. Patient understands and is comfortable with plan. Discussed he is still at risk for losing his right toes and may require transmetatarsal amputation given the duarte bite but can continue conservatively for now. Procedures Date of Service Date of Service: 07/04/24
[2024-07-04 11:24] LABS: Glucose, Whole Blood 290 mg/dL (60-115)
--- NOTE | 2024-07-04 12:08 | HO.PM.IMPN ---
Subjective Subjective Date of Service: 07/04/24 Interval History: c/o hallucinations + SI feet numb Review of Systems Review of Systems: Yes all other systems are reviewed and are negative Physical Exam Vital Signs: Vital Signs: Last Vital Signs Temp 98.5 F 07/04/24 08:00 Pulse 83 07/04/24 08:00 Resp 18 07/04/24 08:00 BP 118/76 07/04/24 09:06 Pulse Ox 99 07/04/24 08:00 O2 Del Method Room Air 07/04/24 08:00 BMI result Body Mass Index 25.1 Gen: in no acute distress HEENT: sclera anicteric, moist mucus membranes Neck: supple Lungs: clear to auscultation bilaterally Heart: regular rate and rhythm, no murmurs Abd: soft, non-tender, non-distended Ext: no edema Skin: warm/well-perfused, R foot with erythema, exudate, and desquamation; also desquamation of L foot Neuro: alert and oriented x3, sensation to feet reduced bilaterally Psych: restricted affect Objective Data Active Medications Acetaminophen (Acetaminophen 325 Mg Tablet) 650 mg PO Q6H PRN PRN Reason: Pain, Mild 1-3,fever,headache Last Admin: 07/04/24 03:12 Dose: 650 mg Documented By: MANOJ Benztropine Mesylate (Benztropine Mesylate 1 Mg Tablet) 1 mg PO BEDTIME [facility] Calcium Carbonate (Calcium Carbonate 750 Mg Tab.Chew) 750 mg PO Q4H PRN PRN Reason: Heartburn Clonidine HCl (Clonidine Hcl 0.1 Mg Tablet) 0.1 mg PO BID [facility]; Protocol Last Admin: 07/04/24 09:06 Dose: 0.1 mg Documented By: ODETTE Dextrose (Dextrose 50 % 25 Gm/50 Ml Syringe) 25 gm IVPUSH Q15M PRN; Protocol PRN Reason: per Hypoglycemia Standing Ord. Glucose (Glucose Gel 15 Gm Gel..Gram.) 15 gm PO Q15M PRN; Protocol PRN Reason: per Hypoglycemia Standing Ord. Haloperidol (Haloperidol 5 Mg Tablet) 10 mg PO BID [facility] Last Admin: 07/04/24 09:05 Dose: 10 mg Documented By: ODETTE Hydroxyzine HCl (Hydroxyzine Hcl 25 Mg Tablet) 25 mg PO Q6H PRN PRN Reason: Anxiety Piperacillin Sod/Tazobactam (Sod 3.375 gm/ Sodium Chloride) 50 mls @ 100 mls/hr IV Q6H [facility] Last Infusion: 07/04/24 08:20 Dose: Infused Documented By: ODETTE Vancomycin HCl 1,000 mg/ (Sodium Chloride) 270 mls @ 270 mls/hr IV Q12H [facility] Last Infusion: 07/04/24 07:05 Dose: Infused Documented By: MCTWayne Insulin Glargine (Insulin Glargine,Hum.Rec.Anlog 100 Unit/Ml 10 Ml Vial) 10 unit SUBCUT BEDTIME [facility] Last Admin: 07/03/24 22:30 Dose: 10 unit Documented By: MONTEIR Insulin Human Lispro (Insulin Lispro 100 Unit/Ml 3 Ml Vial) 0 unit SUBCUT QIDACHS [facility]; Protocol Last Admin: 07/04/24 07:48 Dose: 6 unit Documented By: ODETTE Magnesium Hydroxide (Milk Of Magnesia 30 Ml Oral.Susp) 30 ml PO DAILY PRN PRN Reason: Constipation Melatonin (Melatonin 3 Mg Tablet) 6 mg PO BEDTIME PRN PRN Reason: Insomnia Nicotine Polacrilex (Nicotine Polacrilex 2 Mg Gum) 4 mg BUCCAL Q2H PRN PRN Reason: nicotine cravings Pharmacy Consult (Consult Rx Vancomycin Dosing) 1 each MISCELLANE DAILY PRN PRN Reason: Consult order Quetiapine Fumarate (Quetiapine Fumarate 100 Mg Tablet) 100 mg PO BEDTIME [facility] Sodium Chloride (0.9 % Sodium Chloride Flush 3 Ml Syringe) 3 ml IVFLUSH QSHIFT [facility] Last Admin: 07/04/24 08:21 Dose: 3 ml Documented By: ODETTE Labs 07/03/24 14:58 07/04/24 06:55 Labs: Laboratory Results - last 24 hr 07/03/24 07/03/24 07/03/24 13:38 14:55 14:58 MCV 77.2 L MCH 25.3 L MCHC 32.8 RDW 16.0 Plt Count 400 D MPV 9.8 Immature Gran % (Auto) 0.4 Neut % (Auto) 78.1 H Lymph % (Auto) 15.8 L [place] % (Auto) 5.5 Eos % (Auto) 0.1 Baso % (Auto) 0.1 Lymph # (Auto) 2.1 [place] # (Auto) 0.7 Eos # (Auto) 0.0 Baso # (Auto) 0.0 Abs Immat Gran (auto) 0.06 H Absolute Neuts (auto) 10.5 H Absolute Nucleated RBC 0.000 Nucleated RBC % (auto) 0.0 ESR 48 H VBG pH VBG pCO2 VBG pO2 VBG HCO3 VBG O2 Saturation VBG Base Excess Anion Gap 14 Estim Creat Clear Calc 81.8 Estimated GFR > 60 POC Glucose 449 H* Random Glucose 365 H* Lactic Acid 1.3 Calcium 9.7 Magnesium 2.0 Total Bilirubin 0.8 Direct Bilirubin 0.3 AST 32 ALT 50 H Alkaline Phosphatase 58 C-Reactive Protein 20.35 H Total Protein 8.7 H Albumin 4.2 Beta-Hydroxybutyrate 0.14 Urine Color Urine Appearance Urine pH Ur Specific [place] Urine Protein Urine Glucose (UA) Urine Ketones Urine Blood Urine Nitrite Ur Leukocyte Esterase Urine RBC Urine WBC Ur Squamous Epith Cells Urine Bacteria Hyaline Casts Urine Opiates Screen Ur Buprenorphine Scrn Ur Oxycodone Screen Urine Methadone Screen Urine Fentanyl Screen Ur Barbiturates Screen Ur Phencyclidine Scrn Ur Amphetamines Screen U Benzodiazepines Scrn Urine Cocaine Screen U Marijuana (THC) Screen Ethyl Alcohol < 10 Influenza Type A (PCR) NEGATIVE Influenza Type B (PCR) NEGATIVE RSV RNA Qual (PCR) NEGATIVE SARS-CoV-2 RNA (RT-PCR) NEGATIVE 07/03/24 07/03/24 07/03/24 15:05 15:44 15:48 MCV MCH MCHC RDW Plt Count MPV Immature Gran % (Auto) Neut % (Auto) Lymph % (Auto) [place] % (Auto) Eos % (Auto) Baso % (Auto) Lymph # (Auto) [place] # (Auto) Eos # (Auto) Baso # (Auto) Abs Immat Gran (auto) Absolute Neuts (auto) Absolute Nucleated RBC Nucleated RBC % (auto) ESR VBG pH 7.43 VBG pCO2 49 VBG pO2 25 VBG HCO3 33 H VBG O2 Saturation 30.0 VBG Base Excess 7.6 Anion Gap Estim Creat Clear Calc Estimated GFR POC Glucose 309 H Random Glucose Lactic Acid Calcium Magnesium Total Bilirubin Direct Bilirubin AST ALT Alkaline Phosphatase C-Reactive Protein Total Protein Albumin Beta-Hydroxybutyrate Urine Color Yellow Urine Appearance Clear Urine pH 6.5 Ur Specific [place] >= 1.030 H Urine Protein Negative Urine Glucose (UA) >=1000 H Urine Ketones Negative Urine Blood Negative Urine Nitrite Negative Ur Leukocyte Esterase Negative Urine RBC 0-2 Urine WBC 0-5 Ur Squamous Epith Cells 0-2 Urine Bacteria None Seen Hyaline Casts 0-2 Urine Opiates Screen Not Detected Ur Buprenorphine Scrn Not Detected Ur Oxycodone Screen Not Detected Urine Methadone Screen Not Detected Urine Fentanyl Screen Not Detected Ur Barbiturates Screen Not Detected Ur Phencyclidine Scrn Not Detected Ur Amphetamines Screen Not Detected U Benzodiazepines Scrn Not Detected Urine Cocaine Screen POSITIVE H U Marijuana (THC) Screen Not Detected Ethyl Alcohol Influenza Type A (PCR) Influenza Type B (PCR) RSV RNA Qual (PCR) SARS-CoV-2 RNA (RT-PCR) 07/03/24 07/03/24 07/04/24 17:00 21:54 06:55 MCV MCH MCHC RDW Plt Count MPV Immature Gran % (Auto) Neut % (Auto) Lymph % (Auto) [place] % (Auto) Eos % (Auto) Baso % (Auto) Lymph # (Auto) [place] # (Auto) Eos # (Auto) Baso # (Auto) Abs Immat Gran (auto) Absolute Neuts (auto) Absolute Nucleated RBC Nucleated RBC % (auto) ESR VBG pH VBG pCO2 VBG pO2 VBG HCO3 VBG O2 Saturation VBG Base Excess Anion Gap Estim Creat Clear Calc 98.7 Estimated GFR > 60 POC Glucose 335 H 295 H Random Glucose Lactic Acid Calcium Magnesium Total Bilirubin Direct Bilirubin AST ALT Alkaline Phosphatase C-Reactive Protein Total Protein Albumin Beta-Hydroxybutyrate Urine Color Urine Appearance Urine pH Ur Specific [place] Urine Protein Urine Glucose (UA) Urine Ketones Urine Blood Urine Nitrite Ur Leukocyte Esterase Urine RBC Urine WBC Ur Squamous Epith Cells Urine Bacteria Hyaline Casts Urine Opiates Screen Ur Buprenorphine Scrn Ur Oxycodone Screen Urine Methadone Screen Urine Fentanyl Screen Ur Barbiturates Screen Ur Phencyclidine Scrn Ur Amphetamines Screen U Benzodiazepines Scrn Urine Cocaine Screen U Marijuana (THC) Screen Ethyl Alcohol Influenza Type A (PCR) Influenza Type B (PCR) RSV RNA Qual (PCR) SARS-CoV-2 RNA (RT-PCR) 07/04/24 07/04/24 07:39 11:20 MCV MCH MCHC RDW Plt Count MPV Immature Gran % (Auto) Neut % (Auto) Lymph % (Auto) [place] % (Auto) Eos % (Auto) Baso % (Auto) Lymph # (Auto) [place] # (Auto) Eos # (Auto) Baso # (Auto) Abs Immat Gran (auto) Absolute Neuts (auto) Absolute Nucleated RBC Nucleated RBC % (auto) ESR VBG pH VBG pCO2 VBG pO2 VBG HCO3 VBG O2 Saturation VBG Base Excess Anion Gap Estim Creat Clear Calc Estimated GFR POC Glucose 295 H 290 H Random Glucose Lactic Acid Calcium Magnesium Total Bilirubin Direct Bilirubin AST ALT Alkaline Phosphatase C-Reactive Protein Total Protein Albumin Beta-Hydroxybutyrate Urine Color Urine Appearance Urine pH Ur Specific [place] Urine Protein Urine Glucose (UA) Urine Ketones Urine Blood Urine Nitrite Ur Leukocyte Esterase Urine RBC Urine WBC Ur Squamous Epith Cells Urine Bacteria Hyaline Casts Urine Opiates Screen Ur Buprenorphine Scrn Ur Oxycodone Screen Urine Methadone Screen Urine Fentanyl Screen Ur Barbiturates Screen Ur Phencyclidine Scrn Ur Amphetamines Screen U Benzodiazepines Scrn Urine Cocaine Screen U Marijuana (THC) Screen Ethyl Alcohol Influenza Type A (PCR) Influenza Type B (PCR) RSV RNA Qual (PCR) SARS-CoV-2 RNA (RT-PCR) Assessment and Plan (1) Foot abscess, right: Status: Acute Assessment and Plan: d2 for 39yo M with DM2, cardiomyopathy, polysubstance abuse, schizophrenia presenting with command auditory hallucinations with SI; recent discharge from [facility] 07[facility]; recent frostbite; found to have R foot cellulitis/abscess DM2 cellulitis/abscess - MRI R foot 07/03: No evidence of osteomyelitis. 1.1 x 1.7 x 0.6 cm abscess plantar to the sesamoids. Gen Surg consult for I+D. Wound culture and blood cultures. Continue vancomycin + piperacillin-tazobactam 07/03- SI - JACKIE dao consult for psychiatry placement after medically cleared schizoaffective disorder - continue benztropine, haloperidol, clonidine, quetiapine, hydroxyzine DM2 with hyperglycemia - increase basal-bolus insulin - noncompliant with outpatient medication cocaine abuse - Addiction Medicine consult; screen HBV/HCV/HIV VTE ppx - SCDs, enoxaparin after I+D dispo - inpt psych In my clinical judgment, the patient requires continued inpatient hospitalization for the following reasons: IV ABX, SI Total time managing care of this patient today: 40 minutes. Quality Stroke Does the patient have a stroke diagnosis?: No VTE Prior VTE?: No VTE Risk Level:: Medical - moderate - high VTE Device Contraindication: N/A - Device Ordered VTE Drug Contraindication: Treatment Not Indicated
--- NOTE | 2024-07-04 14:04 | MHC.CM.PN ---
DIRECTOR OF PHYSIOTHERAPY SERVICES MET WITH PT IN ED PT STATES THAT HE LIVES ALONE PT STATES RD HE RECEIVES NO SERVICES PT STATES THAT HE USED NO DME PT STATES THAT HE DOES NOT HAVE A HCP AND IS NOT INTERESTED IN FILLING ONE OUT PT STATES THAT HE DOES NOT HAVE A PCP PT STATES THAT HE DOES HAVE [employer]NE FOR INSURANCE PT WILL NEED ASSISTANCE WITH TRANSPORT
--- NOTE | 2024-07-04 14:05 | PM.PROC ---
Brief Operative Note Date of procedure: 07/04/24 Pre-op diagnosis: right foot cellulitis and abscess Post-op diagnosis: same Procedure: Patient was placed in supine position. The site of procedure was confirmed by the patient. After assuring informed consent, the skin was prepped with Betadine. 10cc 1% lidocaine local anesthesia was then infiltrated over the central portion of the bogginess over the plantar aspect of the right first MTP joint. An incision was made with an 11 blade measuring approximately 1.5 cm in the same location. This was deepened into the subcutaneous tissue. No significant pocket was identified. A culture of the cavity was obtained. The area was then probed with a snap to ensure any loculations were broken up. The bogginess was improved but persisted consistent with edematous subq tissue. Pressure was held with sterile gauze until hemostasis ensured. Dry dressing to I&D site and xeroform placed to dorsal aspect followed by kerlix wrap. The patient tolerated the procedure very well. Pathology: other (culture ) Condition: stable Disposition: no change
[2024-07-04] MEDS: Lidocaine HCl 1 % 20 ML VIAL INFILTRATI (14:11)
[2024-07-04] MEDS: Morphine Sulfate 2 MG/ML CARTRIDGE IVPUSH ×2 (14:27→20:18)
--- NOTE | 2024-07-04 15:08 | MHC.RECOVRN ---
Attempted to meet with pt in [facility] after receiving Addiction Medicine consult for cocaine use. Pt declines meeting at this time.
[2024-07-04 16:09] LABS: Glucose, Whole Blood 263 mg/dL (60-115)
[2024-07-04] MEDS: QUEtiapine Fumarate 100 MG TABLET PO (19:59)
[2024-07-04] MEDS: Melatonin 3 MG TABLET 6 MG PO (19:59)
[2024-07-04] MEDS: hydrOXYzine HCL 25 MG TABLET PO (19:59)
[2024-07-04] MEDS: Benztropine Mesylate 1 MG TABLET PO (20:00)
[2024-07-04] MEDS: Insulin Glargine,Hum.rec.anlog 100 UNIT/ML 10 ML VIAL 15 UNIT SUBCUT (20:01)
[2024-07-04 22:33] LABS: Glucose, Whole Blood 165 mg/dL (60-115)
[2024-07-05 01:05] VITALS: BP 116/66; PULSE 68; RESP 17; TEMP 35.9; O2SAT 99
[2024-07-05 01:12] VITALS: BMI 27.9
[2024-07-05] MEDS: 0.9 % Sodium Chloride Flush 3 ML SYRINGE IVFLUSH ×3 (01:36→17:24)
[2024-07-05] MEDS: Piperacillin Sodium/Tazobactam 3.375 GM in 0.9 % Sodium Chloride 50 ML IV ×4 (01:40→20:57)
[2024-07-05 03:17] VITALS: BP 103/58; PULSE 72; RESP 17; TEMP 36; O2SAT 99
[2024-07-05] MEDS: vancomycin HCL 1,000 MG in 0.9 % Sodium Chloride 250 ML 270 MG IV (05:26)
[2024-07-05 06:51] VITALS: BP 106/68; PULSE 67; RESP 16; TEMP 36.6; O2SAT 96
[2024-07-05 07:07] LABS: Glucose, Whole Blood 308 mg/dL (60-115)
[2024-07-05 07:09] LABS: Alanine Aminotransferase 26 U/L (0-40); Albumin Level 3.2 g/dL (3.5-5.0); Alkaline Phosphatase 48 U/L (39-117); Anion Gap 11 (12-20); Aspartate Amino Transferase 15 U/L (5-37); Bilirubin Total 0.2 mg/dL (0.0-1.0); Blood Urea Nitrogen 13 mg/dL (9-16); Carbon Dioxide 25 mmol/L (22-29); Chloride 106 mmol/L (96-108); Creatinine Clr Calc Pharmacy 98.4; Estimated Glomerular Filt Rate > 60; Potassium 4.1 mmol/L (3.3-5.1); Sodium 138 mmol/L (135-145); Total Protein 6.5 g/dL (6.5-8.0)
[2024-07-05 07:10] LABS: Glucose Random 378 mg/dL (60-115)
[2024-07-05 07:13] LABS: HBS Num1 276.33 mIU/mL (0-7.99); HBc Num1 0.16 S/CO (0.00-0.79); HBsAGNum1 0.23 S/CO (0.00-0.99); HIV AB/AG Nonreactive (Nonreactive); HIV Num 1 0.04 S/CO (0.00-0.99); Hematocrit 29.2 % (42.0-52.0); Hemoglobin 9.5 g/dl (14.0-18.0); Hepatitis B Core Antibody Nonreactive (Nonreactive); Hepatitis B Surface Antigen Negative (Negative); Mean Corpuscular HGB Conc 32.5 g/dl (31.0-36.0); Mean Corpuscular Hemoglobin 25.6 pg (27.0-33.0); Mean Corpuscular Volume 78.7 fL (80.0-98.0); Mean Platelet Volume 10.1 fL (9.4-12.4); Platelet Count 385 X10*3/uL (160-400); Red Blood Count 3.71 X10*6/uL (4.60-5.80); Red Cell Distribution Width 15.9 % (11.0-16.0); White Blood Count 7.8 X10*3/uL (4.8-10.8); ~HepC Num1 0.14 S/CO (0.00-0.79); ~Hepatitis B Surface Antibody REACTIVE (Nonreactive); ~Hepatitis C Antibody Nonreactive (Nonreactive)
[2024-07-05] MEDS: Insulin Lispro 100 UNIT/ML 3 ML VIAL SUBCUT ×4 (07:48→20:48)
[2024-07-05] MEDS: cloNIDine HCL 0.1 MG TABLET PO ×2 (07:48→20:50)
[2024-07-05] MEDS: HaloperidoL 5 MG TABLET 10 MG PO ×2 (07:48→20:50)
--- NOTE | 2024-07-05 09:30 | P.PNIM_ITS ---
Subjective Subjective Date of Service: 07/05/24 Interval History: s/p I+D of R foot abscess feet numb ongoing hallucinations/SI Review of Systems Review of Systems: Yes all other systems are reviewed and are negative Physical Exam 2 Vital Signs: Vital Signs: Last Vital Signs Temp 98 F 07/05/24 06:51 Pulse 67 07/05/24 06:51 Resp 16 07/05/24 06:51 BP 106/68 07/05/24 06:51 Pulse Ox 96 07/05/24 06:51 O2 Del Method Room Air 07/05/24 06:51 BMI result Body Mass Index 27.9 Gen: in no acute distress HEENT: sclera anicteric, moist mucus membranes Neck: supple Lungs: clear to auscultation bilaterally Heart: regular rate and rhythm, no murmurs Abd: soft, non-tender, non-distended Ext: no edema Skin: warm/well-perfused, R foot with erythema, exudate, and desquamation; also discoloration and desquamation of L foot Neuro: alert and oriented x3, sensation to feet reduced bilaterally Psych: restricted affect Objective Data Active Medications Acetaminophen (Acetaminophen 325 Mg Tablet) 650 mg PO Q6H PRN PRN Reason: Pain, Mild 1-3,fever,headache Last Admin: 07/04/24 19:58 Dose: 650 mg Documented By: MEKA Benztropine Mesylate (Benztropine Mesylate 1 Mg Tablet) 1 mg PO BEDTIME [facility] Last Admin: 07/04/24 20:00 Dose: 1 mg Documented By: MEKA Calcium Carbonate (Calcium Carbonate 750 Mg Tab.Chew) 750 mg PO Q4H PRN PRN Reason: Heartburn Clonidine HCl (Clonidine Hcl 0.1 Mg Tablet) 0.1 mg PO BID [facility]; Protocol Last Admin: 07/05/24 07:48 Dose: 0.1 mg Documented By: TRINIDAD Dextrose (Dextrose 50 % 25 Gm/50 Ml Syringe) 25 gm IVPUSH Q15M PRN; Protocol PRN Reason: per Hypoglycemia Standing Ord. Glucose (Glucose Gel 15 Gm Gel..Gram.) 15 gm PO Q15M PRN; Protocol PRN Reason: per Hypoglycemia Standing Ord. Haloperidol (Haloperidol 5 Mg Tablet) 10 mg PO BID [facility] Last Admin: 07/05/24 07:48 Dose: 10 mg Documented By: TRINIDAD Hydroxyzine HCl (Hydroxyzine Hcl 25 Mg Tablet) 25 mg PO Q6H PRN PRN Reason: Anxiety Last Admin: 07/04/24 19:59 Dose: 25 mg Documented By: MEKA Piperacillin Sod/Tazobactam (Sod 3.375 gm/ Sodium Chloride) 50 mls @ 100 mls/hr IV Q6H [facility] Last Infusion: 07/05/24 08:25 Dose: Infused Documented By: TRINIDAD Vancomycin HCl 1,000 mg/ (Sodium Chloride) 270 mls @ 270 mls/hr IV Q12H [facility] Last Infusion: 07/05/24 06:34 Dose: Infused Documented By: MIRIAN Insulin Glargine (Insulin Glargine,Hum.Rec.Anlog 100 Unit/Ml 10 Ml Vial) 20 unit SUBCUT BEDTIME [facility] Insulin Human Lispro (Insulin Lispro 100 Unit/Ml 3 Ml Vial) 0 unit SUBCUT QIDACHS [facility]; Protocol Last Admin: 07/05/24 07:48 Dose: 16 unit Documented By: TRINIDAD Magnesium Hydroxide (Milk Of Magnesia 30 Ml Oral.Susp) 30 ml PO DAILY PRN PRN Reason: Constipation Melatonin (Melatonin 3 Mg Tablet) 6 mg PO BEDTIME PRN PRN Reason: Insomnia Last Admin: 07/04/24 19:59 Dose: 6 mg Documented By: MEKA Nicotine Polacrilex (Nicotine Polacrilex 2 Mg Gum) 4 mg BUCCAL Q2H PRN PRN Reason: nicotine cravings Pharmacy Consult (Consult Rx Vancomycin Dosing) 1 each MISCELLANE DAILY PRN PRN Reason: Consult order Quetiapine Fumarate (Quetiapine Fumarate 100 Mg Tablet) 100 mg PO BEDTIME [facility] Last Admin: 07/04/24 19:59 Dose: 100 mg Documented By: MEKA Sodium Chloride (0.9 % Sodium Chloride Flush 3 Ml Syringe) [facility] Last Admin: 07/05/24 08:24 Dose: 3 ml Documented By: TRINIDAD Labs 07/05/24 06:10 07/05/24 06:10 Labs: Laboratory Results - last 24 hr 07/04/24 07/04/24 07/04/24 11:20 16:06 22:29 MCV MCH MCHC RDW Plt Count MPV Absolute Nucleated RBC Nucleated RBC % (auto) Anion Gap Estim Creat Clear Calc Estimated GFR POC Glucose 290 H 263 H 165 H Random Glucose Calcium Total Bilirubin AST ALT Alkaline Phosphatase Total Protein Albumin Hep Bs Antigen Hep Bs Antibody Hep B Core Total Ab Hepatitis C Ab (EIA) HIV 1&2 Ab/P24 Ag 4thGn 07/05/24 07/05/24 06:10 07:03 MCV 78.7 L MCH 25.6 L MCHC 32.5 RDW 15.9 Plt Count 385 MPV 10.1 Absolute Nucleated RBC 0.000 Nucleated RBC % (auto) 0.0 Anion Gap 11 L Estim Creat Clear Calc 98.4 Estimated GFR > 60 POC Glucose 308 H Random Glucose 378 H* Calcium 9.0 D Total Bilirubin 0.2 AST 15 ALT 26 Alkaline Phosphatase 48 Total Protein 6.5 Albumin 3.2 L Hep Bs Antigen Negative Hep Bs Antibody REACTIVE Hep B Core Total Ab Nonreactive Hepatitis C Ab (EIA) Nonreactive HIV 1&2 Ab/P24 Ag 4thGn Nonreactive Microbiology Microbiology Results: Microbiology 07/04/24 13:55 Gram Stain - Final Foot Right Routine Culture - Preliminary Culture in progress. 07/03/24 14:57 Blood Culture - Preliminary Blood - Venous No growth after 24 hours. 07/03/24 14:58 Blood Culture - Preliminary Blood - Venous No growth after 24 hours. Assessment and Plan (1) Foot abscess, right: Status: Acute Assessment and Plan: d3 for 39yo M with DM2, cardiomyopathy, polysubstance abuse, schizophrenia presenting with command auditory hallucinations with SI; recent discharge from [facility] 07/01; recent frostbite; found to have R foot cellulitis/abscess DM2 cellulitis/abscess - MRI R foot 07/03: No evidence of osteomyelitis. 1.1 x 1.7 x 0.6 cm abscess plantar to the sesamoids. Gen Surg consulted, I+D done 07/04. Wound culture and blood cultures pending. Continue vancomycin + piperacillin-tazobactam 07/03- pending culture results. SI - JACKIE dao consult for psychiatry placement after medically cleared, will certainly need IPLOC schizoaffective disorder - continue benztropine, haloperidol, clonidine, quetiapine, hydroxyzine DM2 with hyperglycemia - increase basal-bolus insulin - noncompliant with outpatient medication cocaine abuse - Addiction Medicine consult declined; HBV/HCV/HIV screen negative VTE ppx - enoxaparin dispo - inpt psych In my clinical judgment, the patient requires continued inpatient hospitalization for the following reasons: IV ABX, SI Total time managing care of this patient today: 40 minutes. Quality Stroke Does the patient have a stroke diagnosis?: No VTE Prior VTE?: No VTE Risk Level:: Medical - moderate - high VTE Device Contraindication: N/A - Device Ordered VTE Drug Contraindication: Treatment Not Indicated
[2024-07-05] MEDS: Enoxaparin Sodium 40 MG/0.4 ML SYRINGE SUBCUT (10:36)
[2024-07-05] MEDS: Acetaminophen 325 MG TABLET 650 MG PO (10:45)
[2024-07-05 11:13] LABS: Glucose, Whole Blood 154 mg/dL (60-115)
[2024-07-05 15:12] VITALS: BP 105/60; PULSE 76; RESP 17; TEMP 36.5; O2SAT 96
[2024-07-05 15:56] LABS: Vancomycin Random 8.4 mcg/mL (15-20)
[2024-07-05 16:26] LABS: Glucose, Whole Blood 248 mg/dL (60-115)
[2024-07-05] MEDS: vancomycin HCL 1,500 MG in 0.9 % Sodium Chloride 500 ML 333.33 MG IV (17:23)
[2024-07-05 19:33] VITALS: BP 116/67; PULSE 75; RESP 18; TEMP 37; O2SAT 100
[2024-07-05 20:28] LABS: Glucose, Whole Blood 208 mg/dL (60-115)
[2024-07-05] MEDS: Insulin Glargine,Hum.rec.anlog 100 UNIT/ML 10 ML VIAL 20 UNIT SUBCUT (20:48)
[2024-07-05] MEDS: Benztropine Mesylate 1 MG TABLET PO (20:50)
[2024-07-05] MEDS: QUEtiapine Fumarate 100 MG TABLET PO (20:50)
[2024-07-06] MEDS: Piperacillin Sodium/Tazobactam 3.375 GM in 0.9 % Sodium Chloride 50 ML IV ×4 (01:41→20:05)
[2024-07-06 03:25] VITALS: BP 101/57; PULSE 76; RESP 18; TEMP 36.6; O2SAT 97
[2024-07-06] MEDS: vancomycin HCL 1,500 MG in 0.9 % Sodium Chloride 500 ML 333.33 MG IV (04:40)
[2024-07-06 06:54] LABS: Creatinine Clr Calc Pharmacy 105.7; Estimated Glomerular Filt Rate > 60
[2024-07-06 07:28] LABS: Glucose, Whole Blood 220 mg/dL (60-115)
[2024-07-06 07:29] VITALS: BP 98/54; PULSE 78; RESP 18; TEMP 36.9; O2SAT 98
[2024-07-06] MEDS: Insulin Lispro 100 UNIT/ML 3 ML VIAL SUBCUT ×4 (07:56→20:17)
[2024-07-06] MEDS: 0.9 % Sodium Chloride Flush 3 ML SYRINGE IVFLUSH ×3 (07:57→23:30)
[2024-07-06] MEDS: cloNIDine HCL 0.1 MG TABLET PO ×2 (07:58→20:16)
[2024-07-06] MEDS: HaloperidoL 5 MG TABLET 10 MG PO ×2 (07:58→20:16)
[2024-07-06 11:39] LABS: Glucose, Whole Blood 260 mg/dL (60-115)
[2024-07-06] MEDS: Enoxaparin Sodium 40 MG/0.4 ML SYRINGE SUBCUT (11:47)
--- NOTE | 2024-07-06 13:53 | PM.PNGS ---
Subjective Subjective Date of Service: 07/06/24 Interval history: Patient has no new right or left foot issues or complaints. Dressings were just changed by nursing staff so they were not disturbed. Physical Exam Vital Signs: Vital Signs: Last Vital Signs Temp 98.5 F 07/06/24 07:29 Pulse 78 07/06/24 07:29 Resp 18 07/06/24 07:29 BP 98/54 L 07/06/24 07:29 Pulse Ox 98 07/06/24 07:29 O2 Del Method Room Air 07/06/24 07:29 BMI result Body Mass Index 27.9 Extrem: Other: Bilateral foot dressings clean dry and intact. Objective Data Active Medications Acetaminophen (Acetaminophen 325 Mg Tablet) 650 mg PO Q6H PRN PRN Reason: Pain, Mild 1-3,fever,headache Last Admin: 07/05/24 10:45 Dose: 650 mg Documented By: TRINIDAD Benztropine Mesylate (Benztropine Mesylate 1 Mg Tablet) 1 mg PO BEDTIME [facility] Last Admin: 07/05/24 20:50 Dose: 1 mg Documented By: MIRIAN Calcium Carbonate (Calcium Carbonate 750 Mg Tab.Chew) 750 mg PO Q4H PRN PRN Reason: Heartburn Clonidine HCl (Clonidine Hcl 0.1 Mg Tablet) 0.1 mg PO BID [facility]; Protocol Last Admin: 07/06/24 07:58 Dose: 0.1 mg Documented By: ZA Dextrose (Dextrose 50 % 25 Gm/50 Ml Syringe) 25 gm IVPUSH Q15M PRN; Protocol PRN Reason: per Hypoglycemia Standing Ord. Enoxaparin Sodium (Enoxaparin Sodium 40 Mg/0.4 Ml Syringe) 40 mg SUBCUT Q24H [facility] Last Admin: 07/06/24 11:47 Dose: 40 mg Documented By: ZA Glucose (Glucose Gel 15 Gm Gel..Gram.) 15 gm PO Q15M PRN; Protocol PRN Reason: per Hypoglycemia Standing Ord. Haloperidol (Haloperidol 5 Mg Tablet) 10 mg PO BID [facility] Last Admin: 07/06/24 07:58 Dose: 10 mg Documented By: ZA Hydroxyzine HCl (Hydroxyzine Hcl 25 Mg Tablet) 25 mg PO Q6H PRN PRN Reason: Anxiety Last Admin: 07/04/24 19:59 Dose: 25 mg Documented By: HO.PETERR Piperacillin Sod/Tazobactam (Sod 3.375 gm/ Sodium Chloride) 50 mls @ 100 mls/hr IV Q6H [facility] Last Infusion: 07/06/24 08:39 Dose: Infused Documented By: ZA Vancomycin HCl 1,500 mg/ (Sodium Chloride) 500 mls @ 333.333 mls/hr IV Q12H [facility] Last Infusion: 07/06/24 06:14 Dose: Infused Documented By: MIRIAN Insulin Glargine (Insulin Glargine,Hum.Rec.Anlog 100 Unit/Ml 10 Ml Vial) 20 unit SUBCUT BEDTIME [facility] Last Admin: 07/05/24 20:48 Dose: 20 unit Documented By: MIRIAN Insulin Human Lispro (Insulin Lispro 100 Unit/Ml 3 Ml Vial) 0 unit SUBCUT QIDACHS [facility]; Protocol Last Admin: 07/06/24 11:48 Dose: 12 unit Documented By: ZA Magnesium Hydroxide (Milk Of Magnesia 30 Ml Oral.Susp) 30 ml PO DAILY PRN PRN Reason: Constipation Melatonin (Melatonin 3 Mg Tablet) 6 mg PO BEDTIME PRN PRN Reason: Insomnia Last Admin: 07/04/24 19:59 Dose: 6 mg Documented By: MEKA Nicotine Polacrilex (Nicotine Polacrilex 2 Mg Gum) 4 mg BUCCAL Q2H PRN PRN Reason: nicotine cravings Pharmacy Consult (Consult Rx Vancomycin Dosing) 1 each MISCELLANE DAILY PRN PRN Reason: Consult order Quetiapine Fumarate (Quetiapine Fumarate 100 Mg Tablet) 100 mg PO BEDTIME [facility] Last Admin: 07/05/24 20:50 Dose: 100 mg Documented By: MIRIAN Sodium Chloride (0.9 % Sodium Chloride Flush 3 Ml Syringe) 3 ml IVFLUSH QSHIFT [facility] Last Admin: 07/06/24 07:57 Dose: 3 ml Documented By: ZA Labs 07/05/24 06:10 07/06/24 06:03 Labs: Laboratory Results - last 24 hr 07/05/24 07/05/24 07/05/24 15:32 16:22 20:20 Estim Creat Clear Calc Estimated GFR POC Glucose 248 H 208 H Random Vancomycin 8.4 L 07/06/24 07/06/24 07/06/24 06:03 07:24 11:36 Estim Creat Clear Calc 105.7 Estimated GFR > 60 POC Glucose 220 H 260 H Random Vancomycin Microbiology Microbiology Results: Microbiology 07/04/24 13:55 Gram Stain - Final Foot Right Routine Culture - Preliminary Culture in progress. 07/03/24 14:57 Blood Culture - Preliminary Blood - Venous No growth after 48 hours. 07/03/24 14:58 Blood Culture - Preliminary Blood - Venous No growth after 48 hours. Procedures Date of Service Date of Service: 07/06/24 Progress Note: A&P Assessment and plan (1) Foot abscess, right: Status: Acute (2) Frostbite: Status: Acute Plan Continue local wound care and IV antibiotics. We will evaluate wounds in the few days. Time Spent With Patient Time: Total time managing care of this patient today ____ minutes. Quality Stroke Does the patient have a stroke diagnosis?: No VTE Prior VTE?: No VTE Risk Level:: Medical - moderate - high VTE Device Contraindication: N/A - Device Ordered VTE Drug Contraindication: Treatment Not Indicated
[2024-07-06 15:26] VITALS: BP 102/61; PULSE 71; RESP 18; TEMP 36.5; O2SAT 98
[2024-07-06 15:42] LABS: Vancomycin Random 15.9 mcg/mL (15-20)
--- NOTE | 2024-07-06 15:47 | P.PNIM_ITS ---
Subjective Subjective Date of Service: 07/06/24 Interval History: Being followed for cellulitis/abscess right foot/suicidal ideation. No complaints No acute events overnight, sitter in place. Review of Systems All other system reviewed and are negative Physical Exam 2 Vital Signs: Vital Signs: Last Vital Signs Temp 97.7 F 07/06/24 15:26 Pulse 71 07/06/24 15:26 Resp 18 07/06/24 15:26 BP 102/61 07/06/24 15:26 Pulse Ox 98 07/06/24 15:26 O2 Del Method Room Air 07/06/24 15:26 BMI result Body Mass Index 27.9 Const: Other: Gen: in no acute distress HEENT: sclera anicteric, moist mucus membranes Neck: supple Lungs: clear to auscultation bilaterally Heart: regular rate and rhythm, no murmurs Abd: soft, non-tender, non-distended Ext: no edema Skin: warm/well-perfused, bilateral foot dressings in place Neuro: alert and oriented x3, decreased sensation bilateral feet Psych: restricted affect Objective Data Active Medications Acetaminophen (Acetaminophen 325 Mg Tablet) 650 mg PO Q6H PRN PRN Reason: Pain, Mild 1-3,fever,headache Last Admin: 07/05/24 10:45 Dose: 650 mg Documented By: TRINIDAD Benztropine Mesylate (Benztropine Mesylate 1 Mg Tablet) 1 mg PO BEDTIME [facility] Last Admin: 07/05/24 20:50 Dose: 1 mg Documented By: MIRIAN Calcium Carbonate (Calcium Carbonate 750 Mg Tab.Chew) 750 mg PO Q4H PRN PRN Reason: Heartburn Clonidine HCl (Clonidine Hcl 0.1 Mg Tablet) 0.1 mg PO BID [facility]; Protocol Last Admin: 07/06/24 07:58 Dose: 0.1 mg Documented By: ZA Dextrose (Dextrose 50 % 25 Gm/50 Ml Syringe) 25 gm IVPUSH Q15M PRN; Protocol PRN Reason: per Hypoglycemia Standing Ord. Enoxaparin Sodium (Enoxaparin Sodium 40 Mg/0.4 Ml Syringe) 40 mg SUBCUT Q24H [facility] Last Admin: 07/06/24 11:47 Dose: 40 mg Documented By: ZA Glucose (Glucose Gel 15 Gm Gel..Gram.) 15 gm PO Q15M PRN; Protocol PRN Reason: per Hypoglycemia Standing Ord. Haloperidol (Haloperidol 5 Mg Tablet) 10 mg PO BID [facility] Last Admin: 07/06/24 07:58 Dose: 10 mg Documented By: ZA Hydroxyzine HCl (Hydroxyzine Hcl 25 Mg Tablet) 25 mg PO Q6H PRN PRN Reason: Anxiety Last Admin: 07/04/24 19:59 Dose: 25 mg Documented By: MEKA Piperacillin Sod/Tazobactam (Sod 3.375 gm/ Sodium Chloride) 50 mls @ 100 mls/hr IV Q6H [facility] Last Infusion: 07/06/24 14:28 Dose: Infused Documented By: ZA Vancomycin HCl 1,500 mg/ (Sodium Chloride) 500 mls @ 333.333 mls/hr IV Q12H [facility] Last Infusion: 07/06/24 06:14 Dose: Infused Documented By: MIRIAN Insulin Glargine (Insulin Glargine,Hum.Rec.Anlog 100 Unit/Ml 10 Ml Vial) 20 unit SUBCUT BEDTIME [facility] Last Admin: 07/05/24 20:48 Dose: 20 unit Documented By: MIRIAN Insulin Human Lispro (Insulin Lispro 100 Unit/Ml 3 Ml Vial) 0 unit SUBCUT QIDACHS [facility]; Protocol Last Admin: 07/06/24 11:48 Dose: 12 unit Documented By: ZA Magnesium Hydroxide (Milk Of Magnesia 30 Ml Oral.Susp) 30 ml PO DAILY PRN PRN Reason: Constipation Melatonin (Melatonin 3 Mg Tablet) 6 mg PO BEDTIME PRN PRN Reason: Insomnia Last Admin: 07/04/24 19:59 Dose: 6 mg Documented By: MEKA Nicotine Polacrilex (Nicotine Polacrilex 2 Mg Gum) 4 mg BUCCAL Q2H PRN PRN Reason: nicotine cravings Pharmacy Consult (Consult Rx Vancomycin Dosing) 1 each MISCELLANE DAILY PRN PRN Reason: Consult order Quetiapine Fumarate (Quetiapine Fumarate 100 Mg Tablet) 100 mg PO BEDTIME [facility] Last Admin: 07/05/24 20:50 Dose: 100 mg Documented By: MIRIAN Sodium Chloride (0.9 % Sodium Chloride Flush 3 Ml Syringe) 3 ml IVFLUSH QSHIFT [facility] Last Admin: 07/06/24 07:57 Dose: 3 ml Documented By: ZA Labs 07/05/24 06:10 07/06/24 06:03 Labs: Laboratory Results - last 24 hr 07/05/24 07/05/24 07/05/24 15:32 16:22 20:20 Estim Creat Clear Calc Estimated GFR POC Glucose 248 H 208 H Random Vancomycin 8.4 L 07/06/24 07/06/24 07/06/24 06:03 07:24 11:36 Estim Creat Clear Calc 105.7 Estimated GFR > 60 POC Glucose 220 H 260 H Random Vancomycin 07/06/24 15:21 Estim Creat Clear Calc Estimated GFR POC Glucose Random Vancomycin 15.9 Microbiology Microbiology Results: Microbiology 07/04/24 13:55 Gram Stain - Final Foot Right Routine Culture - Preliminary Culture in progress. 07/03/24 14:57 Blood Culture - Preliminary Blood - Venous No growth after 48 hours. 07/03/24 14:58 Blood Culture - Preliminary Blood - Venous No growth after 48 hours. Assessment and Plan (1) Frostbite: Status: Acute (2) Foot abscess, right: Status: Acute (3) Cellulitis: Status: Acute Plan 39yo M with DM2, cardiomyopathy, polysubstance abuse, schizophrenia presenting with command auditory hallucinations with SI; recent discharge from [facility] 07/01; recent frostbite; found to have R foot cellulitis/abscess DM2 cellulitis/abscess - MRI R foot 07/03: No evidence of osteomyelitis. 1.1 x 1.7 x 0.6 cm abscess plantar to the sesamoids. Gen Surg consulted, I+D done 07/04. Wound culture in progress and blood cultures showed no growth times 48 hours WBC normalized Continue vancomycin + piperacillin-tazobactam 07/03- follow wound cultures and adjust antibiotics Being followed by General surgery. SI - continue JACKIE dao consult for psychiatry placement after medically cleared, will certainly need IPLOC schizoaffective disorder - continue benztropine, haloperidol, clonidine, quetiapine, hydroxyzine DM2 with hyperglycemia - blood sugars remains elevated, home medications glyburide and metformin on hold, on Lantus 20 units at bedtime, and insulin sliding scale, continue diabetic diet - noncompliant with outpatient medication cocaine abuse - Addiction Medicine consult declined; HBV/HCV/HIV screen negative Tobacco use disorder continue Nicorette gums VTE ppx - enoxaparin dispo - inpt psych In my clinical judgment, the patient requires continued inpatient hospitalization for the following reasons: IV ABX, SI Quality Stroke Does the patient have a stroke diagnosis?: No VTE Prior VTE?: No VTE Risk Level:: Medical - moderate - high VTE Device Contraindication: N/A - Device Ordered VTE Drug Contraindication: Treatment Not Indicated
[2024-07-06 16:24] LABS: Glucose, Whole Blood 112 mg/dL (60-115)
[2024-07-06] MEDS: vancomycin HCL 1,500 MG in 0.9 % Sodium Chloride 500 ML 333 MG IV (16:47)
[2024-07-06 19:18] VITALS: BP 113/57; PULSE 70; RESP 18; TEMP 36.5; O2SAT 98
[2024-07-06 20:09] LABS: Glucose, Whole Blood 259 mg/dL (60-115)
[2024-07-06] MEDS: Acetaminophen 325 MG TABLET 650 MG PO (20:15)
[2024-07-06] MEDS: QUEtiapine Fumarate 100 MG TABLET PO (20:16)
[2024-07-06] MEDS: Insulin Glargine,Hum.rec.anlog 100 UNIT/ML 10 ML VIAL 20 UNIT SUBCUT (20:16)
[2024-07-06] MEDS: Benztropine Mesylate 1 MG TABLET PO (20:16)
[2024-07-07] MEDS: Piperacillin Sodium/Tazobactam 3.375 GM in 0.9 % Sodium Chloride 50 ML IV ×4 (02:17→21:07)
[2024-07-07 03:53] VITALS: BP 108/57; PULSE 72; RESP 18; TEMP 37; O2SAT 97
[2024-07-07] MEDS: vancomycin HCL 1,500 MG in 0.9 % Sodium Chloride 500 ML 333 MG IV ×2 (05:22→16:54)
[2024-07-07 06:33] LABS: Creatinine Clr Calc Pharmacy 106.7; Estimated Glomerular Filt Rate > 60
[2024-07-07 07:03] VITALS: BP 104/69; PULSE 71; RESP 20; TEMP 36.6; O2SAT 100
[2024-07-07 07:12] LABS: Glucose, Whole Blood 202 mg/dL (60-115)
[2024-07-07] MEDS: Insulin Lispro 100 UNIT/ML 3 ML VIAL SUBCUT ×4 (07:47→21:09)
[2024-07-07] MEDS: cloNIDine HCL 0.1 MG TABLET PO ×2 (07:48→21:10)
[2024-07-07] MEDS: HaloperidoL 5 MG TABLET 10 MG PO ×2 (07:49→21:09)
[2024-07-07] MEDS: 0.9 % Sodium Chloride Flush 3 ML SYRINGE IVFLUSH ×2 (08:15→14:41)
--- NOTE | 2024-07-07 09:19 | PM.PNGS ---
Subjective Subjective Date of Service: 07/07/24 Interval history: not very communicative although awake Physical Exam Vital Signs: Vital Signs: Last Vital Signs Temp 97.9 F 07/07/24 07:03 Pulse 71 07/07/24 07:03 Resp 20 07/07/24 07:03 BP 104/69 07/07/24 07:03 Pulse Ox 100 07/07/24 07:03 O2 Del Method Room Air 07/07/24 07:03 BMI result Body Mass Index 27.9 Const: General: comfortable and no acute distress Resp: Effort & Inspection: normal respiratory effort Cardio: Rate: regular rate GI: Palpation (GI): Soft to palpation, not firm and nontender Extrem: Other: right foot - big toe with frostbite, dry gangrene, adjacent toes although with discoloration, skin breakdown and drainage Objective Data Active Medications Acetaminophen (Acetaminophen 325 Mg Tablet) 650 mg PO Q6H PRN PRN Reason: Pain, Mild 1-3,fever,headache Last Admin: 07/06/24 20:15 Dose: 650 mg Documented By: JAMES Benztropine Mesylate (Benztropine Mesylate 1 Mg Tablet) 1 mg PO BEDTIME [facility] Last Admin: 07/06/24 20:16 Dose: 1 mg Documented By: JAMES Calcium Carbonate (Calcium Carbonate 750 Mg Tab.Chew) 750 mg PO Q4H PRN PRN Reason: Heartburn Clonidine HCl (Clonidine Hcl 0.1 Mg Tablet) 0.1 mg PO BID [facility]; Protocol Last Admin: 07/07/24 07:48 Dose: 0.1 mg Documented By: SAULO Dextrose (Dextrose 50 % 25 Gm/50 Ml Syringe) 25 gm IVPUSH Q15M PRN; Protocol PRN Reason: per Hypoglycemia Standing Ord. Enoxaparin Sodium (Enoxaparin Sodium 40 Mg/0.4 Ml Syringe) 40 mg SUBCUT Q24H [facility] Last Admin: 07/06/24 11:47 Dose: 40 mg Documented By: ZA Glucose (Glucose Gel 15 Gm Gel..Gram.) 15 gm PO Q15M PRN; Protocol PRN Reason: per Hypoglycemia Standing Ord. Haloperidol (Haloperidol 5 Mg Tablet) 10 mg PO BID [facility] Last Admin: 07/07/24 07:49 Dose: 10 mg Documented By: SAULO Hydroxyzine HCl (Hydroxyzine Hcl 25 Mg Tablet) 25 mg PO Q6H PRN PRN Reason: Anxiety Last Admin: 07/04/24 19:59 Dose: 25 mg Documented By: MEKA Piperacillin Sod/Tazobactam (Sod 3.375 gm/ Sodium Chloride) 50 mls @ 100 mls/hr IV Q6H [facility] Last Infusion: 07/07/24 08:19 Dose: Infused Documented By: SAULO Vancomycin HCl 1,500 mg/ (Sodium Chloride) 500 mls @ 333.333 mls/hr IV Q12H [facility] Last Infusion: 07/07/24 07:10 Dose: Infused Documented By: JAMES Insulin Glargine (Insulin Glargine,Hum.Rec.Anlog 100 Unit/Ml 10 Ml Vial) 20 unit SUBCUT BEDTIME [facility] Last Admin: 07/06/24 20:16 Dose: 20 unit Documented By: JAMES Insulin Human Lispro (Insulin Lispro 100 Unit/Ml 3 Ml Vial) 0 unit SUBCUT QIDACHS [facility]; Protocol Last Admin: 07/07/24 07:47 Dose: 8 unit Documented By: SAULO Magnesium Hydroxide (Milk Of Magnesia 30 Ml Oral.Susp) 30 ml PO DAILY PRN PRN Reason: Constipation Melatonin (Melatonin 3 Mg Tablet) 6 mg PO BEDTIME PRN PRN Reason: Insomnia Last Admin: 07/04/24 19:59 Dose: 6 mg Documented By: MEKA Nicotine Polacrilex (Nicotine Polacrilex 2 Mg Gum) 4 mg BUCCAL Q2H PRN PRN Reason: nicotine cravings Pharmacy Consult (Consult Rx Vancomycin Dosing) 1 each MISCELLANE DAILY PRN PRN Reason: Consult order Quetiapine Fumarate (Quetiapine Fumarate 100 Mg Tablet) 100 mg PO BEDTIME [facility] Last Admin: 07/06/24 20:16 Dose: 100 mg Documented By: JAMES Sodium Chloride (0.9 % Sodium Chloride Flush 3 Ml Syringe) 3 ml IVFLUSH QSHIFT [facility] Last Admin: 07/06/24 23:30 Dose: 3 ml Documented By: JAMES Labs 07/05/24 06:10 07/07/24 05:32 Labs: Laboratory Results - last 24 hr 07/06/24 07/06/24 07/06/24 11:36 15:21 16:20 Estim Creat Clear Calc Estimated GFR POC Glucose 260 H 112 Random Vancomycin 15.9 07/06/24 07/07/24 07/07/24 20:05 05:32 07:08 Estim Creat Clear Calc 106.7 Estimated GFR > 60 POC Glucose 259 H 202 H Random Vancomycin Microbiology Microbiology Results: Microbiology 07/04/24 13:55 Gram Stain - Final Foot Right Routine Culture - Preliminary Culture in progress. Procedures Date of Service Date of Service: 07/07/24 Progress Note: A&P Assessment and plan (1) Frostbite: Status: Acute Assessment and Plan: right big toe appears to have ry gangrene dorsally skin breakdown, discoloration on 2nd and 3rd toes would continue abx allow demarcation may benefit from amputation dressings changed - wrapped foot with Kerlix Time Spent With Patient Time: Total time managing care of this patient today ____ minutes. Quality Stroke Does the patient have a stroke diagnosis?: No VTE Prior VTE?: No VTE Risk Level:: Medical - moderate - high VTE Device Contraindication: N/A - Device Ordered VTE Drug Contraindication: Treatment Not Indicated
[2024-07-07] MEDS: Enoxaparin Sodium 40 MG/0.4 ML SYRINGE SUBCUT (11:07)
[2024-07-07 11:10] LABS: Glucose, Whole Blood 286 mg/dL (60-115)
--- NOTE | 2024-07-07 13:41 | HO.PM.IMPN ---
Subjective Subjective Date of Service: 07/07/24 Interval History: Resting comfortably complaining of bilateral foot pain, complaining of auditory hallucination, no acute events overnight, tolerating diet with no nausea, no vomiting or abdominal pain. Review of Systems All other system reviewed and are negative. Constitutional Constitutional: Reports as per HPI Physical Exam Vital Signs: Vital Signs: Last Vital Signs Temp 97.9 F 07/07/24 07:03 Pulse 71 07/07/24 07:03 Resp 20 07/07/24 07:03 BP 104/69 07/07/24 07:03 Pulse Ox 100 07/07/24 07:03 O2 Del Method Room Air 07/07/24 07:03 BMI result Body Mass Index 27.9 Const: Other: Gen: in no acute distress HEENT: sclera anicteric, moist mucus membranes Neck: supple Lungs: clear to auscultation bilaterally Heart: regular rate and rhythm, no murmurs Abd: soft, non-tender, non-distended Ext: no edema Skin: warm/well-perfused, right big toe with dry gangrene, skin breakdown, adjacent toe discolored, foul odor and drainage, left foot dressing in place Neuro: alert and oriented x3, decreased sensation bilateral feet Psych: restricted affect Objective Data Active Medications Acetaminophen (Acetaminophen 325 Mg Tablet) 650 mg PO Q6H PRN PRN Reason: Pain, Mild 1-3,fever,headache Last Admin: 07/06/24 20:15 Dose: 650 mg Documented By: JAMES Benztropine Mesylate (Benztropine Mesylate 1 Mg Tablet) 1 mg PO BEDTIME [facility] Last Admin: 07/06/24 20:16 Dose: 1 mg Documented By: JAMES Calcium Carbonate (Calcium Carbonate 750 Mg Tab.Chew) 750 mg PO Q4H PRN PRN Reason: Heartburn Clonidine HCl (Clonidine Hcl 0.1 Mg Tablet) 0.1 mg PO BID [facility]; Protocol Last Admin: 07/07/24 07:48 Dose: 0.1 mg Documented By: SAULO Dextrose (Dextrose 50 % 25 Gm/50 Ml Syringe) 25 gm IVPUSH Q15M PRN; Protocol PRN Reason: per Hypoglycemia Standing Ord. Enoxaparin Sodium (Enoxaparin Sodium 40 Mg/0.4 Ml Syringe) 40 mg SUBCUT Q24H [facility] Last Admin: 07/07/24 11:07 Dose: 40 mg Documented By: SAULO Glucose (Glucose Gel 15 Gm Gel..Gram.) 15 gm PO Q15M PRN; Protocol PRN Reason: per Hypoglycemia Standing Ord. Haloperidol (Haloperidol 5 Mg Tablet) 10 mg PO BID [facility] Last Admin: 07/07/24 07:49 Dose: 10 mg Documented By: SAULO Hydroxyzine HCl (Hydroxyzine Hcl 25 Mg Tablet) 25 mg PO Q6H PRN PRN Reason: Anxiety Last Admin: 07/04/24 19:59 Dose: 25 mg Documented By: MEKA Piperacillin Sod/Tazobactam (Sod 3.375 gm/ Sodium Chloride) 50 mls @ 100 mls/hr IV Q6H [facility] Last Infusion: 07/07/24 08:19 Dose: Infused Documented By: SAULO Vancomycin HCl 1,500 mg/ (Sodium Chloride) 500 mls @ 333.333 mls/hr IV Q12H [facility] Last Infusion: 07/07/24 07:10 Dose: Infused Documented By: JAMES Insulin Glargine (Insulin Glargine,Hum.Rec.Anlog 100 Unit/Ml 10 Ml Vial) 20 unit SUBCUT BEDTIME [facility] Last Admin: 07/06/24 20:16 Dose: 20 unit Documented By: JAMES Insulin Human Lispro (Insulin Lispro 100 Unit/Ml 3 Ml Vial) 0 unit SUBCUT QIDACHS [facility]; Protocol Last Admin: 07/07/24 11:45 Dose: 12 unit Documented By: SAULO Magnesium Hydroxide (Milk Of Magnesia 30 Ml Oral.Susp) 30 ml PO DAILY PRN PRN Reason: Constipation Melatonin (Melatonin 3 Mg Tablet) 6 mg PO BEDTIME PRN PRN Reason: Insomnia Last Admin: 07/04/24 19:59 Dose: 6 mg Documented By: MEKA Nicotine Polacrilex (Nicotine Polacrilex 2 Mg Gum) 4 mg BUCCAL Q2H PRN PRN Reason: nicotine cravings Pharmacy Consult (Consult Rx Vancomycin Dosing) 1 each MISCELLANE DAILY PRN PRN Reason: Consult order Quetiapine Fumarate (Quetiapine Fumarate 100 Mg Tablet) 100 mg PO BEDTIME [facility] Last Admin: 07/06/24 20:16 Dose: 100 mg Documented By: JAMES Sodium Chloride (0.9 % Sodium Chloride Flush 3 Ml Syringe) 3 ml IVFLUSH QSHIFT [facility] Last Admin: 07/07/24 08:15 Dose: 3 ml Documented By: SAULO Labs 07/05/24 06:10 07/07/24 05:32 Labs: Laboratory Results - last 24 hr 07/06/24 07/06/24 07/06/24 15:21 16:20 20:05 Estim Creat Clear Calc Estimated GFR POC Glucose 112 259 H Random Vancomycin 15.9 07/07/24 07/07/24 07/07/24 05:32 07:08 11:07 Estim Creat Clear Calc 106.7 Estimated GFR > 60 POC Glucose 202 H 286 H Random Vancomycin Microbiology Microbiology Results: Microbiology 07/04/24 13:55 Gram Stain - Final Foot Right Routine Culture - Preliminary Staphylococcus aureus Assessment and Plan (1) Frostbite: Status: Acute (2) Foot abscess, right: Status: Acute (3) Osteomyelitis: Status: Acute (4) Suicide ideation: Status: Acute Plan 39yo M with DM2, cardiomyopathy, polysubstance abuse, schizophrenia presenting with command auditory hallucinations with SI; recent discharge from [facility] 07/01; recent frostbite; found to have R foot cellulitis/abscess DM2 cellulitis/abscess - MRI R foot 07/03: No evidence of osteomyelitis. 1.1 x 1.7 x 0.6 cm abscess plantar to the sesamoids. Gen Surg consulted, I+D done 07/04, Wound culture grew Staph aureus, and blood cultures showed no growth x 48 hr WBC normalized Continue vancomycin + piperacillin-tazobactam 07/03- follow final wound cultures and adjust antibiotics Case discussed with general surgery they recommend to continue current IV antibiotics patient might require amputation due to gangrenous right big and adjacent toe. SI - continue JACKIE dao consult for psychiatry placement after medically cleared, will certainly need IPLOC schizoaffective disorder - continue benztropine, haloperidol, clonidine, quetiapine, hydroxyzine DM2 with hyperglycemia - blood sugars remains elevated, home medications glyburide and metformin on hold, on Lantus 20 units at bedtime, and insulin sliding scale, will increase dose of Lantus to 24 unit continue diabetic diet - noncompliant with outpatient medication cocaine abuse- Addiction Medicine consult declined; HBV/HCV/HIV screen negative Tobacco use disorder continue Nicorette gums VTE ppx - enoxaparin dispo - inpt psych In my clinical judgment, the patient requires continued inpatient hospitalization for the following reasons: IV ABX, SI Quality Stroke Does the patient have a stroke diagnosis?: No VTE Prior VTE?: No VTE Risk Level:: Medical - moderate - high VTE Device Contraindication: N/A - Device Ordered VTE Drug Contraindication: Treatment Not Indicated
[2024-07-07 15:00] VITALS: BP 101/62; PULSE 77; RESP 20; TEMP 36.8; O2SAT 99
[2024-07-07 15:30] LABS: Vancomycin Random 15.7 mcg/mL (15-20)
--- NOTE | 2024-07-07 15:40 | HE.PHANOTE ---
Re: Vanco Renal function improving. Trough returned at 15.7, continue current dose of 1500mg q12h. Predicted AUC 531, predicted trough 13.8. Next trough 07/08 @ 1500.
--- NOTE | 2024-07-07 15:44 | MHC.CLN ---
NUTRITION PATIENT WITH FROSTBITE OF BILATERAL TOES. ADDING ENSURE MAX BID TO PROMOTE SKIN INTEGRITY. SUPPLEMENT PROVIDES 300 KCALS, 60 G PROTEIN.
[2024-07-07 16:12] LABS: Glucose, Whole Blood 196 mg/dL (60-115)
[2024-07-07 19:06] VITALS: BP 103/62; PULSE 77; RESP 16; TEMP 36.7; O2SAT 98
[2024-07-07 20:32] LABS: Glucose, Whole Blood 171 mg/dL (60-115)
[2024-07-07] MEDS: Insulin Glargine,Hum.rec.anlog 100 UNIT/ML 10 ML VIAL 24 UNIT SUBCUT (21:09)
[2024-07-07 21:10] VITALS: BP 118/63
[2024-07-07] MEDS: Benztropine Mesylate 1 MG TABLET PO (21:10)
[2024-07-07] MEDS: QUEtiapine Fumarate 100 MG TABLET PO (21:10)
[2024-07-07] MEDS: Acetaminophen 325 MG TABLET 650 MG PO (21:12)
[2024-07-08] MEDS: 0.9 % Sodium Chloride Flush 3 ML SYRINGE IVFLUSH ×4 (02:13→21:34)
[2024-07-08] MEDS: Piperacillin Sodium/Tazobactam 3.375 GM in 0.9 % Sodium Chloride 50 ML IV ×2 (02:14→08:30)
[2024-07-08 03:34] VITALS: BP 104/65; PULSE 61; RESP 18; TEMP 36.9; O2SAT 98
[2024-07-08] MEDS: vancomycin HCL 1,500 MG in 0.9 % Sodium Chloride 500 ML 333 MG IV (05:01)
--- NOTE | 2024-07-08 06:06 | PC.NURSE ---
Patient slept most of the shift, sitter present in the room, patient compliant with medications, no pain reported. Vss, per report and surgery note dressing changed by Dr. La on day shift.
[2024-07-08 07:23] VITALS: BP 112/59; PULSE 64; RESP 16; TEMP 36.8; O2SAT 97
[2024-07-08 07:40] LABS: Glucose, Whole Blood 208 mg/dL (60-115)
[2024-07-08] MEDS: cloNIDine HCL 0.1 MG TABLET PO ×2 (08:30→21:33)
[2024-07-08] MEDS: Enoxaparin Sodium 40 MG/0.4 ML SYRINGE SUBCUT (08:30)
[2024-07-08] MEDS: HaloperidoL 5 MG TABLET 10 MG PO ×2 (08:30→21:32)
[2024-07-08] MEDS: Insulin Lispro 100 UNIT/ML 3 ML VIAL SUBCUT ×3 (08:44→21:33)
[2024-07-08 08:58] LABS: Creatinine Clr Calc Pharmacy 117.7; Estimated Glomerular Filt Rate > 60
[2024-07-08] MEDS: Acetaminophen 325 MG TABLET 650 MG PO (09:06)
--- NOTE | 2024-07-08 10:57 | HO.PM.IMPN ---
Subjective Subjective Date of Service: 07/08/24 Interval History: Being followed for suicidal ideation/frostbite and abscess right foot Offers no acute complaints, no fevers, no chills, tolerating diet, good pain control. Review of Systems All other system reviewed and are negative Physical Exam Vital Signs: Vital Signs: Last Vital Signs Temp 98.2 F 07/08/24 07:23 Pulse 64 07/08/24 07:23 Resp 16 07/08/24 07:23 BP 112/59 L 07/08/24 07:23 Pulse Ox 97 07/08/24 07:23 O2 Del Method Room Air 07/08/24 07:23 BMI result Body Mass Index 27.9 Const: Other: Gen: in no acute distress HEENT: sclera anicteric, moist mucus membranes Neck: supple Lungs: clear to auscultation bilaterally Heart: regular rate and rhythm, no murmurs Abd: soft, non-tender, non-distended Ext: no edema Skin: warm/well-perfused, right big toe with dry gangrene, skin breakdown, adjacent toe discolored, foul odor and drainage, left foot dressing in place Neuro: alert and oriented x3, decreased sensation bilateral feet Psych: restricted affect Objective Data Active Medications Acetaminophen (Acetaminophen 325 Mg Tablet) 650 mg PO Q6H PRN PRN Reason: Pain, Mild 1-3,fever,headache Last Admin: 07/08/24 09:06 Dose: 650 mg Documented By: CLARISA Benztropine Mesylate (Benztropine Mesylate 1 Mg Tablet) 1 mg PO BEDTIME [facility] Last Admin: 07/07/24 21:10 Dose: 1 mg Documented By: HOWARD Calcium Carbonate (Calcium Carbonate 750 Mg Tab.Chew) 750 mg PO Q4H PRN PRN Reason: Heartburn Clonidine HCl (Clonidine Hcl 0.1 Mg Tablet) 0.1 mg PO BID [facility]; Protocol Last Admin: 07/08/24 08:30 Dose: 0.1 mg Documented By: CLARISA Dextrose (Dextrose 50 % 25 Gm/50 Ml Syringe) 25 gm IVPUSH Q15M PRN; Protocol PRN Reason: per Hypoglycemia Standing Ord. Enoxaparin Sodium (Enoxaparin Sodium 40 Mg/0.4 Ml Syringe) 40 mg SUBCUT Q24H [facility] Last Admin: 07/08/24 08:30 Dose: 40 mg Documented By: CLARISA Glucose (Glucose Gel 15 Gm Gel..Gram.) 15 gm PO Q15M PRN; Protocol PRN Reason: per Hypoglycemia Standing Ord. Haloperidol (Haloperidol 5 Mg Tablet) 10 mg PO BID [facility] Last Admin: 07/08/24 08:30 Dose: 10 mg Documented By: CLARISA Hydroxyzine HCl (Hydroxyzine Hcl 25 Mg Tablet) 25 mg PO Q6H PRN PRN Reason: Anxiety Last Admin: 07/04/24 19:59 Dose: 25 mg Documented By: MEKA Piperacillin Sod/Tazobactam (Sod 3.375 gm/ Sodium Chloride) 50 mls @ 100 mls/hr IV Q6H [facility] Last Infusion: 07/08/24 09:07 Dose: Infused Documented By: CLARISA Vancomycin HCl 1,500 mg/ (Sodium Chloride) 500 mls @ 333.333 mls/hr IV Q12H [facility] Last Infusion: 07/08/24 06:39 Dose: Infused Documented By: HOWARD Insulin Glargine (Insulin Glargine,Hum.Rec.Anlog 100 Unit/Ml 10 Ml Vial) 24 unit SUBCUT BEDTIME [facility] Last Admin: 07/07/24 21:09 Dose: 24 unit Documented By: HOWARD Insulin Human Lispro (Insulin Lispro 100 Unit/Ml 3 Ml Vial) 0 unit SUBCUT QIDACHS [facility]; Protocol Last Admin: 07/08/24 08:44 Dose: 8 unit Documented By: CLARISA Magnesium Hydroxide (Milk Of Magnesia 30 Ml Oral.Susp) 30 ml PO DAILY PRN PRN Reason: Constipation Melatonin (Melatonin 3 Mg Tablet) 6 mg PO BEDTIME PRN PRN Reason: Insomnia Last Admin: 07/04/24 19:59 Dose: 6 mg Documented By: MEKA Nicotine Polacrilex (Nicotine Polacrilex 2 Mg Gum) 4 mg BUCCAL Q2H PRN PRN Reason: nicotine cravings Pharmacy Consult (Consult Rx Vancomycin Dosing) 1 each MISCELLANE DAILY PRN PRN Reason: Consult order Quetiapine Fumarate (Quetiapine Fumarate 100 Mg Tablet) 100 mg PO BEDTIME [facility] Last Admin: 07/07/24 21:10 Dose: 100 mg Documented By: HO.DOBROB Sodium Chloride (0.9 % Sodium Chloride Flush 3 Ml Syringe) 3 ml IVFLUSH QSHIFT [facility] Last Admin: 07/08/24 08:31 Dose: 3 ml Documented By: CLARISA Labs 07/05/24 06:10 07/08/24 08:03 Labs: Laboratory Results - last 24 hr 07/07/24 07/07/24 07/07/24 11:07 15:04 16:07 Hold Purple Top Estim Creat Clear Calc Estimated GFR POC Glucose 286 H 196 H Random Vancomycin 15.7 07/07/24 07/08/24 07/08/24 20:29 07:26 08:03 Hold Purple Top SEE NOTE Estim Creat Clear Calc 117.7 Estimated GFR > 60 POC Glucose 171 H 208 H Random Vancomycin Microbiology Microbiology Results: Microbiology 07/04/24 13:55 Gram Stain - Final Foot Right Routine Culture - Final Methicillin Res Staph Aureus Assessment and Plan (1) Frostbite: Status: Acute (2) Foot abscess, right: Status: Acute (3) Suicide ideation: Status: Acute Plan 39yo M with DM2, cardiomyopathy, polysubstance abuse, schizophrenia presenting with command auditory hallucinations with SI; recent discharge from [facility] 07/01; recent frostbite; found to have R foot cellulitis/abscess DM2 cellulitis/abscess - sepsis resolved - MRI R foot 07/03: No evidence of osteomyelitis. 1.1 x 1.7 x 0.6 cm abscess plantar to the sesamoids. Gen Surg consulted, I+D done 07/04, Wound culture grew Staph aureus, and blood cultures showed no growth x 48 hr WBC normalized on vancomycin + piperacillin-tazobactam 07/03- final wound cultures grew MRSA , will DC IV Zosyn , vanco trough 15.7 Case discussed with general surgery they recommend to continue current IV antibiotics patient might require amputation due to gangrenous right big and adjacent toe, continue dry dressing. SI - continue sylwia consult for psychiatry placement after medically cleared, will certainly need IPLOC Schizoaffective disorder - continue benztropine, haloperidol, clonidine, quetiapine, hydroxyzine DM2 with hyperglycemia - home medications glyburide and metformin on hold, on Lantus 24u at bedtime, and insulin sliding scale, continue diabetic diet, increase Lantus to 28 units. noncompliant with outpatient medication Cocaine abuse- Addiction Medicine consult declined; HBV/HCV/HIV screen negative Tobacco use disorder continue Nicorette gums VTE ppx - enoxaparin dispo - inpt psych In my clinical judgment, the patient requires continued inpatient hospitalization for the following reasons: IV ABX, SI. Quality Stroke Does the patient have a stroke diagnosis?: No VTE Prior VTE?: No VTE Risk Level:: Medical - moderate - high VTE Device Contraindication: N/A - Device Ordered VTE Drug Contraindication: Treatment Not Indicated
--- NOTE | 2024-07-08 11:09 | P.CDIM_ITS ---
PROVIDER RESPONSE TEXT: To clarify, the appropriate diagnosis supported by the clinical indicators: Sepsis remains a known or suspected condition QUERY TEXT: PHYSICIAN'S DOCUMENTATION REQUEST Date of Query: 07/08/2024 08:40 AM EST Patient Name: Luan Blanton Admit Date: 07/03/2024 Dear Devora Albrecht MD, A review of the medical record indicates additional documentation may be needed. Please review below and update the documentation accordingly. Clinical Indicators: H&P dated 07/03 - Left foot cellulitis with Sepsis concerning for osteomyelitis. Secondary to frostbite and uncontrolled diabetes. Meets sepsis criteria with tachycardia and leukocytosis, lactic acid wnl. Low grade fever of 99.9 and tachycardic up to 98, WBC 13.5, glucose 449. Started to receive IVF and started on broad-spectrum antibiotics in the ED. Will treat with Vancomycin and Zosyn. Pt will required a hospitalization of at least two nights for treatment of left foot cellulitis with Sepsis secondary to frostbite and uncontrolled diabetes. Please clarify the documentation of Sepsis noted within the medical record: Sepsis remains a known or suspected condition After study Sepsis has been ruled out Other (explain) Clinically unable to determine (explain) Thank you, Lesa Roe, CCS, CDIS Use of terms such as suspected, likely, concern for, or probable (associated with a specific diagnosi s that is being evaluated, monitored, or treated as if it exists) are acceptable and can be coded in the inpatient se tting, when documented at the time of discharge. Please use your independent medical judgment in providing your response. THIS QUERY IS PART OF THE PERMANENT MEDICAL RECORD
[2024-07-08 11:11] LABS: Glucose, Whole Blood 307 mg/dL (60-115)
[2024-07-08 15:17] LABS: Vancomycin Random 17.1 mcg/mL (15-20)
--- NOTE | 2024-07-08 15:25 | HE.PHANOTE ---
Re: Kalina Renal function is improving. Trough returned at 17.1, pt is therapeutic. Continue dose of 1500 mg q12h with predicted auc 506, predicted trough 13.3. Next trough 07/09 @1500.
[2024-07-08 15:30] VITALS: BP 101/68; PULSE 68; RESP 18; TEMP 36.6; O2SAT 99
[2024-07-08 16:09] LABS: Glucose, Whole Blood 95 mg/dL (60-115)
--- NOTE | 2024-07-08 17:48 | HO.WOUND ---
Wound Consult: Initial 39yr old?[place] [facility] - See progress notes and H&P for detailed history.? Of note this patient was seen on his previous admission on the to the [facility] for bilateral foot frostbite. Of note both feet appears to be improving since last assessment 06/26/24. Wound consult placed for Bilateral Feet Frostbite on admission.? Patient agreeable to assessment and photo documentation.? Paulino bite is due to the fact that he is homeless and was sleeping in a long term. He reports he was wearing shoes and socks however they were often wet and cold and the shoes had holes in them, he confirms exposure to ice and snow and cold water. The patient reports he since has been staying with his mother and has new shoes that do not have holes. He does report he has not been limiting his walking or standing. He was educated on the benefits of limiting standing and ambulation and keeping the wounds dry. At this time the wound continues to improve and demarcate viable tissue - recommend continued topical and systemic treatment for limb salvage. Nutrition consulted. Bilateral Feet Etiology: ?Frostbite Wound Bed: Overall improving / evolving wound beds in various stages of healing. The left toes are warm and returning to normal pigmentation with a small open partial thickness tissue loss to great toe - clean pink wound bed - +PP, no swelling noted and denies neuropathy today. Right foot is overall the more concerning wounds. +PP, warm to touch no longer cold, and reports feeling and sensation - pain at times. The left plantar surface has dry eschar noted with maceration noted in the web spaces. The anterior great toe side is moist necrotic tissue. Wound will heal best at this time to dry out and allow autolytic debridement and healing to occur. Recommendations: 1. Provide adequate and supplemental nutrition.? 2. When applicable maintain blood glucose levels per Providers order. 3. Elevate lower legs on pillows, limit standing and walking while edema is present. 4. Bilateral Foot and Toes - Cleanse with Betadine allow to dry. Cover open wounds beds only not dry black necrotic wounds beds with Durafiber AG, Cover with Dry gauze, ABD pad and Wrap. Change daily. while inpatient. Elevate legs on pillows limit walking and standing while edema is present. Re-consult wound care Nurse for wound deterioration or wound changes. Left Foot Left Plantar toes Right Anterior foot Right Plantar foot Photos from last admission. Right Foot Left Foot
[2024-07-08] MEDS: vancomycin HCL 1,500 MG in 0.9 % Sodium Chloride 500 ML 333.33 MG IV (17:54)
[2024-07-08 19:19] VITALS: BP 105/59; PULSE 75; RESP 18; TEMP 36.8; O2SAT 97
[2024-07-08 20:43] LABS: Glucose, Whole Blood 339 mg/dL (60-115)
[2024-07-08] MEDS: Benztropine Mesylate 1 MG TABLET PO (21:33)
[2024-07-08] MEDS: Insulin Glargine,Hum.rec.anlog 100 UNIT/ML 10 ML VIAL 28 UNIT SUBCUT (21:33)
[2024-07-08] MEDS: QUEtiapine Fumarate 100 MG TABLET PO (21:33)
[2024-07-09 03:23] VITALS: BP 100/53; PULSE 70; RESP 16; TEMP 36.3; O2SAT 99
[2024-07-09] MEDS: vancomycin HCL 1,500 MG in 0.9 % Sodium Chloride 500 ML 333.33 MG IV (05:35)
[2024-07-09 07:11] LABS: Glucose, Whole Blood 168 mg/dL (60-115)
[2024-07-09 07:22] VITALS: BP 98/59; PULSE 66; RESP 18; TEMP 36; O2SAT 98
[2024-07-09 07:25] LABS: Creatinine Clr Calc Pharmacy 117.7; Estimated Glomerular Filt Rate > 60
[2024-07-09] MEDS: Enoxaparin Sodium 40 MG/0.4 ML SYRINGE SUBCUT (08:32)
[2024-07-09] MEDS: Insulin Lispro 100 UNIT/ML 3 ML VIAL SUBCUT ×4 (08:32→21:33)
[2024-07-09] MEDS: cloNIDine HCL 0.1 MG TABLET PO ×2 (08:33→21:34)
[2024-07-09] MEDS: HaloperidoL 5 MG TABLET 10 MG PO ×2 (08:34→21:34)
[2024-07-09] MEDS: 0.9 % Sodium Chloride Flush 3 ML SYRINGE IVFLUSH ×3 (08:34→21:34)
--- NOTE | 2024-07-09 10:54 | PM.PNGS ---
Subjective Subjective Date of Service: 07/09/24 Interval history: Patient says he feels well Denies foot pain No events reported Physical Exam Vital Signs: Vital Signs: Last Vital Signs Temp 96.8 F 07/09/24 07:22 Pulse 66 07/09/24 07:22 Resp 18 07/09/24 07:22 BP 98/59 L 07/09/24 07:22 Pulse Ox 98 07/09/24 07:22 O2 Del Method Room Air 07/09/24 07:22 BMI result Body Mass Index 27.9 Const: Other: Very flat affect, answers some questions General: comfortable and no acute distress Resp: Effort & Inspection: normal respiratory effort Cardio: Rate: regular rate GI: Palpation (GI): Soft to palpation Extrem: Other: Right foot -discoloration on the plantar aspect of the big toe consistent with his frostbite, dry mummification; some patchy areas of discoloration on the 2nd and 3rd toes as well at the plantar aspect but these otherwise appear viable no pus pocket, no areas of pus discharge Objective Data Active Medications Acetaminophen (Acetaminophen 325 Mg Tablet) 650 mg PO Q6H PRN PRN Reason: Pain, Mild 1-3,fever,headache Last Admin: 07/08/24 09:06 Dose: 650 mg Documented By: CLARISA Benztropine Mesylate (Benztropine Mesylate 1 Mg Tablet) 1 mg PO BEDTIME [facility] Last Admin: 07/08/24 21:33 Dose: 1 mg Documented By: MIGUE Calcium Carbonate (Calcium Carbonate 750 Mg Tab.Chew) 750 mg PO Q4H PRN PRN Reason: Heartburn Clonidine HCl (Clonidine Hcl 0.1 Mg Tablet) 0.1 mg PO BID [facility]; Protocol Last Admin: 07/09/24 08:33 Dose: 0.1 mg Documented By: CLARISA Dextrose (Dextrose 50 % 25 Gm/50 Ml Syringe) 25 gm IVPUSH Q15M PRN; Protocol PRN Reason: per Hypoglycemia Standing Ord. Enoxaparin Sodium (Enoxaparin Sodium 40 Mg/0.4 Ml Syringe) 40 mg SUBCUT Q24H [facility] Last Admin: 07/09/24 08:32 Dose: 40 mg Documented By: CLARISA Glucose (Glucose Gel 15 Gm Gel..Gram.) 15 gm PO Q15M PRN; Protocol PRN Reason: per Hypoglycemia Standing Ord. Haloperidol (Haloperidol 5 Mg Tablet) 10 mg PO BID [facility] Last Admin: 07/09/24 08:34 Dose: 10 mg Documented By: CLARISA Hydroxyzine HCl (Hydroxyzine Hcl 25 Mg Tablet) 25 mg PO Q6H PRN PRN Reason: Anxiety Last Admin: 07/04/24 19:59 Dose: 25 mg Documented By: MEKA Vancomycin HCl 1,500 mg/ (Sodium Chloride) 500 mls @ 333.333 mls/hr IV Q12H [facility] Last Infusion: 07/09/24 07:41 Dose: Infused Documented By: CLARISA Insulin Glargine (Insulin Glargine,Hum.Rec.Anlog 100 Unit/Ml 10 Ml Vial) 28 unit SUBCUT BEDTIME [facility] Last Admin: 07/08/24 21:33 Dose: 28 unit Documented By: MIGUE Insulin Human Lispro (Insulin Lispro 100 Unit/Ml 3 Ml Vial) 0 unit SUBCUT QIDACHS [facility]; Protocol Last Admin: 07/09/24 08:32 Dose: 5 unit Documented By: CLARISA Magnesium Hydroxide (Milk Of Magnesia 30 Ml Oral.Susp) 30 ml PO DAILY PRN PRN Reason: Constipation Melatonin (Melatonin 3 Mg Tablet) 6 mg PO BEDTIME PRN PRN Reason: Insomnia Last Admin: 07/04/24 19:59 Dose: 6 mg Documented By: MEKA Nicotine Polacrilex (Nicotine Polacrilex 2 Mg Gum) 4 mg BUCCAL Q2H PRN PRN Reason: nicotine cravings Pharmacy Consult (Consult Rx Vancomycin Dosing) 1 each MISCELLANE DAILY PRN PRN Reason: Consult order Quetiapine Fumarate (Quetiapine Fumarate 100 Mg Tablet) 100 mg PO BEDTIME [facility] Last Admin: 07/08/24 21:33 Dose: 100 mg Documented By: MIGUE Sodium Chloride (0.9 % Sodium Chloride Flush 3 Ml Syringe) 3 ml IVFLUSH QSHIFT [facility] Last Admin: 07/09/24 08:34 Dose: 3 ml Documented By: CLARISA Labs 07/05/24 06:10 07/09/24 07:03 Labs: Laboratory Results - last 24 hr 07/08/24 07/08/24 07/08/24 11:06 14:51 15:54 Estim Creat Clear Calc Estimated GFR POC Glucose 307 H 95 Random Vancomycin 17.1 07/08/24 07/09/24 07/09/24 20:39 07:03 07:04 Estim Creat Clear Calc 117.7 Estimated GFR > 60 POC Glucose 339 H 168 H Random Vancomycin Microbiology Microbiology Results: Microbiology 07/03/24 14:58 Blood Culture - Final Blood - Venous No growth after 5 days. 07/03/24 14:57 Blood Culture - Final Blood - Venous No growth after 5 days. 07/04/24 13:55 Gram Stain - Final Foot Right Routine Culture - Final Methicillin Res Staph Aureus Procedures Date of Service Date of Service: 07/09/24 Progress Note: A&P Assessment and plan (1) Frostbite: Status: Acute Assessment and Plan: The right foot actually appears much better today There is no obvious infection, no pus Discoloration consistent with frostbite of the big toe Does not seem to require any urgent intervention for now Allow further demarcation We will need good wound care with dry dressings daily Okay to follow up in the office when discharged Discussed with the hospitalist Dressings changed; foot wrapped in Kerlix Time Spent With Patient Time: Total time managing care of this patient today ____ minutes. Quality Stroke Does the patient have a stroke diagnosis?: No VTE Prior VTE?: No VTE Risk Level:: Medical - moderate - high VTE Device Contraindication: N/A - Device Ordered VTE Drug Contraindication: Treatment Not Indicated
[2024-07-09 10:59] LABS: Glucose, Whole Blood 249 mg/dL (60-115)
--- NOTE | 2024-07-09 12:27 | MHC.CLN ---
F/U CONSULT FOR PATIENT WITH FROSTBITE OF BILATERAL TOES. ADDED ENSURE MAX BID TO PROMOTE SKIN INTEGRITY. SUPPLEMENT PROVIDES 300 KCALS, 60 G PROTEIN. DIET=DIABETIC 2000 KCALS-APPROPRIATE. INTAKE AT MEALS APPEARS TO BE USUALLY 100%.
--- NOTE | 2024-07-09 12:33 | MHC.CM.PN ---
EMR REVIEWED AND PER MD ROUNDS, PT IS NOT YET MEDICALLY CLEARED FOR DC. FROSTBIT BILAT TOES SLIGHTLY IMPROVED. CM WILL CONTINUE TO FOLLOW FOR PLAN.
[2024-07-09 14:08] VITALS: BP 104/56
--- NOTE | 2024-07-09 15:47 | HO.PM.IMPN ---
Subjective Subjective Date of Service: 07/09/24 Interval History: Tolerating diet no nausea no vomiting or abdominal pain Denies fever, no chills, denies foot pain No acute events overnight. Review of Systems All other system reviewed and are negative. Constitutional Constitutional: Reports as per HPI Physical Exam Vital Signs: Vital Signs: Last Vital Signs Temp 96.8 F 07/09/24 07:22 Pulse 66 07/09/24 07:22 Resp 18 07/09/24 07:22 BP 104/56 L 07/09/24 14:08 Pulse Ox 98 07/09/24 07:22 O2 Del Method Room Air 07/09/24 07:22 BMI result Body Mass Index 27.9 Const: Other: Gen: in no acute distress HEENT: sclera anicteric, moist mucus membranes Neck: supple Lungs: clear to auscultation bilaterally Heart: regular rate and rhythm, no murmurs Abd: soft, non-tender, non-distended Ext: no edema Skin: warm/well-perfused, right big toe with dry gangrene, discoloration of right big toe and 2nd toe, skin breakdown, no pus pockets, no discharge Neuro: alert and oriented x3, decreased sensation bilateral feet Psych: restricted affect Objective Data Active Medications Acetaminophen (Acetaminophen 325 Mg Tablet) 650 mg PO Q6H PRN PRN Reason: Pain, Mild 1-3,fever,headache Last Admin: 07/08/24 09:06 Dose: 650 mg Documented By: CLARISA Benztropine Mesylate (Benztropine Mesylate 1 Mg Tablet) 1 mg PO BEDTIME [facility] Last Admin: 07/08/24 21:33 Dose: 1 mg Documented By: MIGUE Calcium Carbonate (Calcium Carbonate 750 Mg Tab.Chew) 750 mg PO Q4H PRN PRN Reason: Heartburn Clonidine HCl (Clonidine Hcl 0.1 Mg Tablet) 0.1 mg PO BID [facility]; Protocol Last Admin: 07/09/24 08:33 Dose: 0.1 mg Documented By: CLARISA Dextrose (Dextrose 50 % 25 Gm/50 Ml Syringe) 25 gm IVPUSH Q15M PRN; Protocol PRN Reason: per Hypoglycemia Standing Ord. Doxycycline Monohydrate (Doxycycline Monohydrate 100 Mg Capsule) 100 mg PO BID [facility] Enoxaparin Sodium (Enoxaparin Sodium 40 Mg/0.4 Ml Syringe) 40 mg SUBCUT Q24H [facility] Last Admin: 07/09/24 08:32 Dose: 40 mg Documented By: CLARISA Glucose (Glucose Gel 15 Gm Gel..Gram.) 15 gm PO Q15M PRN; Protocol PRN Reason: per Hypoglycemia Standing Ord. Glyburide (Glyburide 5 Mg Tablet) 5 mg PO BIDWM [facility] Haloperidol (Haloperidol 5 Mg Tablet) 10 mg PO BID [facility] Last Admin: 07/09/24 08:34 Dose: 10 mg Documented By: CLARISA Hydroxyzine HCl (Hydroxyzine Hcl 25 Mg Tablet) 25 mg PO Q6H PRN PRN Reason: Anxiety Last Admin: 07/04/24 19:59 Dose: 25 mg Documented By: MEKA Insulin Glargine (Insulin Glargine,Hum.Rec.Anlog 100 Unit/Ml 10 Ml Vial) 28 unit SUBCUT BEDTIME [facility] Last Admin: 07/08/24 21:33 Dose: 28 unit Documented By: MIGUE Insulin Human Lispro (Insulin Lispro 100 Unit/Ml 3 Ml Vial) 0 unit SUBCUT QIDACHS [facility]; Protocol Last Admin: 07/09/24 12:19 Dose: 8 unit Documented By: CLARISA Magnesium Hydroxide (Milk Of Magnesia 30 Ml Oral.Susp) 30 ml PO DAILY PRN PRN Reason: Constipation Melatonin (Melatonin 3 Mg Tablet) 6 mg PO BEDTIME PRN PRN Reason: Insomnia Last Admin: 07/04/24 19:59 Dose: 6 mg Documented By: MEKA Nicotine Polacrilex (Nicotine Polacrilex 2 Mg Gum) 4 mg BUCCAL Q2H PRN PRN Reason: nicotine cravings Quetiapine Fumarate (Quetiapine Fumarate 100 Mg Tablet) 100 mg PO BEDTIME [facility] Last Admin: 07/08/24 21:33 Dose: 100 mg Documented By: MIGUE Sodium Chloride (0.9 % Sodium Chloride Flush 3 Ml Syringe) 3 ml IVFLUSH QSHIFT [facility] Last Admin: 07/09/24 08:34 Dose: 3 ml Documented By: CLARISA Labs 07/05/24 06:10 07/09/24 07:03 Labs: Laboratory Results - last 24 hr 07/08/24 07/08/24 07/09/24 15:54 20:39 07:03 Estim Creat Clear Calc 117.7 Estimated GFR > 60 POC Glucose 95 339 H 07/09/24 07/09/24 07:04 10:55 Estim Creat Clear Calc Estimated GFR POC Glucose 168 H 249 H Microbiology Microbiology Results: Microbiology 07/03/24 14:58 Blood Culture - Final Blood - Venous No growth after 5 days. 07/03/24 14:57 Blood Culture - Final Blood - Venous No growth after 5 days. Assessment and Plan (1) Frostbite: Status: Acute (2) Foot abscess, right: Status: Acute Plan 39yo M with DM2, cardiomyopathy, polysubstance abuse, schizophrenia presenting with command auditory hallucinations with SI; recent discharge from [facility] 07/01; recent frostbite; found to have R foot cellulitis/abscess DM2 cellulitis/abscess - sepsis resolved - MRI R foot 07/03: No evidence of osteomyelitis. 1.1 x 1.7 x 0.6 cm abscess plantar to the sesamoids. Gen Surg consulted, I+D done 07/04, Wound culture grew Staph aureus, and blood cultures showed no growth x 48 hr WBC normalized on vancomycin + piperacillin-tazobactam 07/03-07/08 final wound cultures grew MRSA , will DC IV vancomycin 07/09, vanco trough 15.7 and transitioned to by mouth doxycycline 100 mg twice daily Case discussed with general surgery Dr. La he feels right foot appears better, with no obvious signs of infection, no pus, discoloration consistent with frostbite of big toe does not seem to require any urgent intervention for now, allow further demarcation, he recommend good wound care with dry dressings daily, outpatient follow-up with General surgery. SI - continue sitter, patient medically cleared obtain care team consult Schizoaffective disorder - continue benztropine, haloperidol, clonidine, quetiapine, hydroxyzine DM2 with hyperglycemia - home medications glyburide and metformin on hold, on Lantus 24u at bedtime, and insulin sliding scale, continue diabetic diet, increase Lantus to 28 units. noncompliant with outpatient medication Cocaine abuse- Addiction Medicine consult declined; HBV/HCV/HIV screen negative Tobacco use disorder continue Nicorette gums VTE ppx - enoxaparin dispo -as per care team recommendation In my clinical judgment, the patient requires continued inpatient hospitalization for the following reasons: SI, wound care. Quality Stroke Does the patient have a stroke diagnosis?: No VTE Prior VTE?: No VTE Risk Level:: Medical - moderate - high VTE Device Contraindication: N/A - Device Ordered VTE Drug Contraindication: Treatment Not Indicated
[2024-07-09 16:00] VITALS: BP 110/63; PULSE 68; RESP 18; TEMP 36.6; O2SAT 99
[2024-07-09 16:41] LABS: Glucose, Whole Blood 221 mg/dL (60-115)
[2024-07-09] MEDS: glyBURIDE 5 MG TABLET PO (16:50)
--- NOTE | 2024-07-09 17:32 | MHC.CARE ---
Patient evaluated by the CARE Team, disposition inpatient psychiatric treatment. Provider, Dr. Bhardwaj updated and in agreement with plan.
[2024-07-09 19:05] VITALS: BP 109/65; PULSE 70; RESP 18; TEMP 36.6; O2SAT 96
[2024-07-09 20:51] LABS: Glucose, Whole Blood 155 mg/dL (60-115)
[2024-07-09] MEDS: Acetaminophen 325 MG TABLET 650 MG PO (21:32)
[2024-07-09] MEDS: Insulin Glargine,Hum.rec.anlog 100 UNIT/ML 10 ML VIAL 28 UNIT SUBCUT (21:33)
[2024-07-09] MEDS: QUEtiapine Fumarate 100 MG TABLET PO (21:34)
[2024-07-09] MEDS: Doxycycline Monohydrate 100 MG CAPSULE PO (21:34)
[2024-07-09] MEDS: Benztropine Mesylate 1 MG TABLET PO (21:34)
[2024-07-10 03:23] VITALS: BP 102/61; PULSE 62; RESP 16; TEMP 36.4; O2SAT 100
[2024-07-10 07:09] VITALS: BP 102/61; PULSE 64; RESP 16; TEMP 36.3; O2SAT 97
[2024-07-10 07:20] LABS: Glucose, Whole Blood 139 mg/dL (60-115)
[2024-07-10] MEDS: cloNIDine HCL 0.1 MG TABLET PO (07:52)
[2024-07-10] MEDS: Sulfamethox/Trimeth 800/160 TABLET 1 TAB PO (07:52)
[2024-07-10] MEDS: HaloperidoL 5 MG TABLET 10 MG PO (07:52)
[2024-07-10] MEDS: Insulin Lispro 100 UNIT/ML 3 ML VIAL SUBCUT ×2 (07:52→11:53)
[2024-07-10] MEDS: glyBURIDE 5 MG TABLET PO (07:52)
[2024-07-10] MEDS: 0.9 % Sodium Chloride Flush 3 ML SYRINGE IVFLUSH (07:53)
[2024-07-10] MEDS: Enoxaparin Sodium 40 MG/0.4 ML SYRINGE SUBCUT (10:57)
[2024-07-10 11:11] LABS: Glucose, Whole Blood 225 mg/dL (60-115)
--- NOTE | 2024-07-10 13:12 | PM.DS ---
DS: Providers Provider Date of Service: 07/10/24 Date of admission: 07/03/24 18:15 Date of discharge: 07/10/24 Primary care physician: Maciej Physician Consults: 07/03/24 13:57 ED CARE Team Crisis Consult Stat Comment: Reason for consultation: SI 07/03/24 18:25 Consult to General Surgery Routine Consulting Provider: [facility] General Surgeons Reason for consultation: Bilateral frostbite of toes, early right great toe osteo 07/03/24 18:57 Consult for Sitter Routine Reason for consultation: Command hallucinations with SI with plan to choke himself 07/04/24 07:36 Addiction Medicine Routine Consulting Provider: Addiction Covering Reason for consultation: cocaine 07/05/24 09:06 Consult to Wound Care Routine Reason for consultation: duarte bite to BL toes 07/09/24 12:14 Inpt CARE Team Crisis Consult Routine Comment: Reason for consultation: medically cleared DS: Diagnosis Discharge Diagnosis (1) Frostbite: Status: Acute (2) Foot abscess, right: Status: Acute DS: Summary Hospital Course Hospital Course: History of presenting illness: Date of Service: 07/03/24 Attending physician on admission: Cinthia Espinoza Chief Complaint: Suicidal ideation Pt is a 39-year-old male with a PMH significant for?insulin-dependent type 2 diabetes with hyperglycemia and noncompliant with insulin, cardiomyopathy, polysubstance use disorder, and schizophrenia who presents to the ED from home with command auditory hallucinations telling him to harm himself. Pt presented from his mother's where he was hearing voices that told him to choke himself. Ten days prior pt was found by a bystander on the ground outside after an intentional overdose on alcohol, crack cocaine, and fentanyl. Unknown downtime. Was found to be hypothermic with a core temperature of 90.5 degrees and had frostbite on bilateral toes. At that time was treated for rhabdomyolysis and seen and evaluated by Wound Care and Plastic surgery who did not think pt required any surgical intervention at that time. Pt was then transferred to Psychiatric unit here at [facility] and seen by wound care. At that time pt's feet showed blistering but skin was intact (see pictures in hospitalist chart on 06/26/2024). Pt was then discharged from 2 days ago on 07/01/2024. Pt reports since discharge pt reports smoking crack cocaine with last use last night. Noted that when he took his shoes off last night he noticed that the skin was peeling away especially right foot. Reports feet are more numb than painful, but states has had difficulty walking. He has had subjective fever and chills. No nausea, vomiting, abdominal pain. Denies shortness or breath or difficulty breathing. No chest pain/pressure, palpitations. Pt reports has been noncompliant with home medications since discharge. Reports long noncompliance with insulin. He is unable to state when he last took insulin in the community. In the ED pt with low-grade fever of 99.9 and tachycardic up to 98. Labs were significant for leukocytosis of 13.5, initial glucose 449, and ALT 50. Stable microcytic anemia of 11.3/34.5. No significant electrolyte abnormalities. Renal function WNL. Lactic acid WNL at 1.3. Tested negative for flu, COVID, RSV. Right foot x-ray with findings concerning for possible early osteomyelitis of distal hallux phalanx and soft tissue ulceration of lateral plantar hallux with small subcutaneous foci of gas. Pt was treated with IVF, acetaminophen, vanc, and Zosyn. Pt will be admitted to the hospital for treatment and further evaluation of left foot cellulitis with sepsis secondary to frostbite and uncontrolled diabetes concerning for early osteomyelitis. Hospital course: 39yo M with DM2, cardiomyopathy, polysubstance abuse, schizophrenia presenting with command auditory hallucinations with SI; recent discharge from [facility] 07/01; recent frostbite; found to have R foot cellulitis/abscess # DM2 cellulitis/abscess , admitted to medical floor with a diagnosis of sepsis, and started on broad-spectrum antibiotics vancomycin and Zosyn, MRI R foot 07/03: No evidence of osteomyelitis. 1.1 x 1.7 x 0.6 cm abscess plantar to the sesamoids. Gen Surg consulted, I+D done 07/04, Wound culture grew MRSA and blood cultures showed no growth x 48 hr, WBC normalized, subsequently IV antibiotic discontinued and patient placed on by mouth Bactrim, patient evaluated by general surgery Dr. La he feels right foot appears better, with no obvious signs of infection, no pus, discoloration consistent with frostbite of big toe does not seem to require any urgent intervention for now, allow further demarcation, he recommend good wound care with dry dressings daily, outpatient follow-up with General surgery, take by mouth antibiotic as prescribed for 3 more days. # SI - being transferred to Psychiatry # Schizoaffective disorder - continue benztropine, haloperidol, clonidine, quetiapine, hydroxyzine # DM2 with hyperglycemia - blood sugars elevated continue glyburide and metformin , started on Lantus to 28 units, recommend to follow diabetic diet. noncompliant with outpatient medication # Cocaine abuse- Addiction Medicine consult declined; HBV/HCV/HIV screen negative # Tobacco use disorder continue Nicorette gums Time Attestation Discharge Coordination Time (in mins): 40 Quality: Safe Use of Opioids Does Pt have an Active Cancer Diagnosis on the Problem List?: No Quality: Stroke Does the patient have a stroke diagnosis?: No Physical Exam Vital Signs: Vital Signs: Last Vital Signs Temp 97.4 F 07/10/24 07:09 Pulse 64 07/10/24 07:09 Resp 16 07/10/24 07:09 BP 102/61 07/10/24 07:09 Pulse Ox 97 07/10/24 07:09 O2 Del Method Room Air 07/10/24 07:09 BMI result Body Mass Index 27.9 Const: Other: Gen: in no acute distress HEENT: sclera anicteric, moist mucus membranes Neck: supple Lungs: clear to auscultation bilaterally Heart: regular rate and rhythm, no murmurs Abd: soft, non-tender, non-distended Ext: no edema Skin: warm/well-perfused, right big toe with dry gangrene, discoloration of right big toe and 2nd toe, skin breakdown, no pus pockets, no discharge Neuro: alert and oriented x3 Psych: restricted affect DS: Data Data Completed and Pending Labs on day of discharge: Laboratory Results - last 24 hr 07/09/24 07/09/24 07/10/24 16:34 20:35 07:14 POC Glucose 221 H 155 H 139 H 07/10/24 11:04 POC Glucose 225 H Discharge Plan Discharge Patient Disposition: Xfer Psychiatric Hosp Discharge Diagnosis: Diabetes mellitus cellulitis/abscess right big toe Frostbite Suicidal ideation Referrals: Physician,None [Primary Care Provider] - 1 Week Discharge Medications: New insulin lispro [Admelog U-100 Insulin lispro] 100 unit/mL Solution See Protocol subcut QIDACHS Qty: 10 0RF Protocol: Insulin Resistant 1st 24 hours Less than or equal to 110 ---- Give (units): 0 111 to 150 Give (units): 2 151 to 200 Give (units): 5 201 to 250 Give (units): 8 251 to 300 Give (units): 12 301 to 350 Give (units): 16 Greater than 350 Give (units): 20 Call MD if Blood Glucose > : 350 glyburide 5 mg Tablet 5 mg PO BIDWM Qty: 60 0RF insulin glargine [Lantus U-100 Insulin] 100 unit/mL Solution 28 unit subcut BEDTIME Qty: 10 0RF Continued acetaminophen 500 mg capsule 500 mg PO Q6H PRN (Reason: pain) 14 Days Qty: 28 0RF hydroxyzine HCl 25 mg Tablet 25 mg PO Q6H PRN (Reason: Anxiety) 30 Days Qty: 60 0RF clonidine HCl 0.1 mg Tablet 0.1 mg PO BID 30 Days Qty: 60 0RF quetiapine 100 mg Tablet 100 mg PO BEDTIME 30 Days Qty: 30 0RF haloperidol 10 mg tablet 10 mg PO BID 30 Days Qty: 60 0RF benztropine 1 mg Tablet 1 mg PO BEDTIME 30 Days Qty: 30 0RF metformin 1,000 mg tablet 1,000 mg PO BID 30 Days Qty: 60 0RF melatonin 5 mg tablet 5 mg PO BEDTIME PRN (Reason: sleep) 30 Days Qty: 30 0RF Discontinued glyburide 2.5 mg tablet 2.5 mg PO BIDWM 30 Days Qty: 60 0RF No Action sulfamethoxazole-trimethoprim [Bactrim DS] 800-160 mg tablet 1 tab PO Q12H Discharge Orders: Discharge Order (Routine); Ordered 07/10/24 Ordered By: Devora Albrecht Diet: Diabetic diet Activity on Discharge: As tolerated Stand Alone Forms: Patient Portal Discharge page Print Language: Persian Care Plan Goals: Frostbite bilateral foot right greater than left/status post drainage of right big toe plantar surface abscess Dressing changed to bilateral foot and toes daily : Cleansed with Betadine and allowed to dry, cover open wound beds with dura fiber (silver alginate) cover with dry gauze, ABD pad and wrap with Kerlix Take Bactrim ds 1 tablet twice daily for 3 more days In regard to diabetes monitor insulin sliding scale take Lantus 28 units at bedtime, glyburide and metformin bid Monitor point of care blood sugar q.i.d. a.c. Health Concerns: Diabetes mellitus follow diabetic diet and meds as above Plan of Treatment: Transferred to psychiatric facility due to suicidal ideation Assessment: As above Patient Instructions: Osteomyelitis (DC), Suicide Prevention (DC) Discharge Date/Time: 07/10/24 14:09
--- NOTE | 2024-07-10 13:58 | PC.NURSE ---
Late addendum: This engineering technical writer administered Tylenol 650mg to this patient per his request, he did not want anything stronger at that time.
--- NOTE | 2024-07-10 13:58 | MHC.CM.PN ---
DP: PT WILL TRANSFER TO [facility]IATRIC [facility]
--- NOTE | 2024-07-10 14:02 | PC.NURSE ---
IV removed at this time.
== END 2024-07-10 14:09 | DRG 710 ==
LOC: HO.ED 16:48 → HO.EDOVER 18:32 → HO.S3 07-04 23:59
PROVIDERS: Family Medicine; Physician Assistant Medical; Admitting Provider Student in an Organized Health Care Education/Training Program; Emergency Provider Emergency Medicine Emergency Medical Services; Visit Provider Hospitalist
DX: A41.9 Sepsis, unspecified organism (principal); I42.9 Cardiomyopathy, unspecified; R45.851 Suicidal ideations; L03.116 Cellulitis of left lower limb; L02.611 Cutaneous abscess of right foot; E11.628 Type 2 diabetes mellitus with other skin complications; T34.821A Frostbite with tissue necrosis of right foot, initial encounter; E11.65 Type 2 diabetes mellitus with hyperglycemia; F12.10 Cannabis abuse, uncomplicated; F14.10 Cocaine abuse, uncomplicated; X31.XXXA Exposure to excessive natural cold, initial encounter; F20.9 Schizophrenia, unspecified; B95.62 Methicillin resistant Staphylococcus aureus infection as the cause of diseases classified elsewhere; F17.210 Nicotine dependence, cigarettes, uncomplicated; Z71.6 Tobacco abuse counseling; Z20.822 Contact with and (suspected) exposure to COVID-19; Z91.148 Patient's other noncompliance with medication regimen for other reason; Z79.4 Long term (current) use of insulin; Z79.84 Long term (current) use of oral hypoglycemic drugs; Z79.899 Other long term (current) drug therapy
CPT/HCPCS: 0241U; 36415; 73630; 73720; 80048; 80053; 80076; 80202; 80307; 81001; 81003; 82010; 82565; 82803; 82947; 83605; 83735; 85025; 85027; 85652; 86140; 86704; 86706; 86803; 87040; 87070; 87077; 87186; 87205; 87340; 87389; 99285; A9585; J0131; J1650; J2003; J2270; J2543; J3370; J3371; S9485

== ENCOUNTER → 2024-07-03 13:56 | Outpatient (BNV) | payer OTHER, SELFPAY | PROVIDERS: Emergency Provider Emergency Medicine Emergency Medical Services; Visit Provider Radiology Diagnostic Radiology | DX: L02.611 Cutaneous abscess of right foot (principal) | CPT/HCPCS: 73630; 73720 ==

== ENCOUNTER → 2024-07-03 18:15 | Outpatient (BNV) | payer OTHER, SELFPAY | PROVIDERS: Admitting Provider Student in an Organized Health Care Education/Training Program; Emergency Provider Emergency Medicine Emergency Medical Services; Visit Provider Physician Assistant Surgical | DX: T33.90XA Superficial frostbite of unspecified sites, initial encounter (principal) | CPT/HCPCS: 10060; 99024; 99222 ==

== ENCOUNTER → 2024-07-03 18:15 | Outpatient (BNV) | payer OTHER, SELFPAY | PROVIDERS: Admitting Provider Student in an Organized Health Care Education/Training Program; Emergency Provider Emergency Medicine Emergency Medical Services; Visit Provider Family Medicine | DX: T33.821A Superficial frostbite of right foot, initial encounter (principal); E11.621 Type 2 diabetes mellitus with foot ulcer; R45.851 Suicidal ideations; E11.65 Type 2 diabetes mellitus with hyperglycemia | CPT/HCPCS: 99223; 99232; 99239 ==

== ENCOUNTER 2024-07-10 14:19 | Inpatient (IN) | payer OTHER, SELFPAY ==
[2024-07-10 15:00] VITALS: BP 128/78; PULSE 88; RESP 16; TEMP 36.9; O2SAT 97; BMI 27.0
--- OUTSIDE RECORDS SUMMARY | 2024-07-10 15:34 | XMS_ITS | Patient Health Record ---
Author Organization [facility] Address [address], [place] [id number] Care Team Providers Care Prescription Clerk Name Role Phone RAEANN Domínguez Primary Care Provider UnavailAlexandr Meng Unavailable [phone] Allergies Allergen (clinical drug ingredient) Drug/Non Drug Allergy documented on EMR Reaction Allergy Type Onset Date Status codeine Codeine (uncoded) ? reaction Allergy A ctive Reason For Referral No Information Medications Medication SIG (Take, Route, Fr equency, Duration) Notes Start Date End Date Status RisperDAL 4 mg 2 tabs orally 2 time s a day for 30 day(s) Active Cogentin 1 mg 1 tab(s) orally 2 ti mes a day for 30 day(s) Active risperiDONE 0.5 mg 1 tab(s) orally q 4 hrs prn agitation for 30 day(s) Active busPIRone 15 mg 1/2 tAB orally 3 grupo es a day for 30 day(s) Active Doculase sodium 100 mg 1 cap(s) orally b id prn constipation for 30 day(s) Activ e Immunizations Vaccine Route Administration Date Status Comme nts Influenza Unknown 03/17/2011 Administered PPD planted ID Intradermal 05/24/2011 Administered Tdap IM Intramuscular 05/24/2011 Administered Pneumococcal IM Intramuscular 05/24/2011 Administered PPD negative Unknown 05/26/2011 Administered 0 mm indur ation after 48 hrs/LB Problems Problem Type SNOMED Code ICD Code Onset Dates Problem Status W/U Status Risk Notes Problem Obesity (582715627) Obesity, BMI 30-39.9 (278.00) Active confirmed Problem Tobacco use (568851021) Tobacco use disorder (305.1) Active confirmed Problem Chronic mental disorder (521202133) MENTAL DISOR NEC OTH DIS (294.8) Active confirmed Problem Nondependent alcohol abuse (673199696) ALCOHOL ABUSE-UNSPEC (305.00) Active confirmed Problem Pneumococcal vaccine (427489831) Pneumococcal vaccine (V03.82) Active confirmed Plan Of Treatment No Information Insurance Providers Payer Name Payer Address Payer Phone Subscriber Number Group Number Insured Name Patient Relationship to Insured Coverage Start Date Coverage End Date [place] Medicaid Standard [address] [place] [phone] [id number] Luan Blanton Self - patient is the insured Medical (General) History Medical History History ICD Code depression Hospitalization History Reason Date(Month/Year) [facility] 2009 [facility] 2009
--- OUTSIDE RECORDS SUMMARY | 2024-07-10 15:34 | XMS_ITS | Clinical Summary ---
Author Organization [facility] Address [address] [place] [address] Care Team Providers Care Furnace Keeper Name Role Phone Dayne Dubose Primary Care Provider [phone] Allergies Active Allergy Reactions Criticality Noted Date [...] mouth nightly as needed for sleep. 03/03/20 24 025 Discontinu ed(Error) docusate sodium (COLACE) 100 [...] drug rehab program before being discharged to [facility], more recently he is homeless and unable to obtain his psychiatric medications. At time of admission, he was agreeable to meeting with addiction psychiatry. 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 Assessment & Plan (06/23/2024 2:36 PM [...] disorder (alcohol, cocaine, opioids), who presented to [facility] ED on 06/22/2024 after being [...] disorder (alcohol, cocaine, opioids), who presented to [facility] ED on 06/22/2024 after being [...] - 06/25/2024 9:01 PM EST Hospital Encounter [facility] Emergency Department [address] [place] [address] Sofía Hardy MD Darling, Chad E, MD [...] Screening 05/21/2024 Depression Screening and Follow-Up 05/21/2024 [employer] Natalia ual Screening 05/21/2024 Hemoglobin A1C 12/21/2024 06/23/2024 Basic Metabolic Panel 06/25/2025 06/25/2024 , 06/24/2024, 06/23/2024, Additional history exists DTaP,Tdap,and Td Vaccines (4 - Td or Tdap) 06/22/2034 06/22/2024, 08/06/2022, 05/24/2011 RSV Vaccine (60+ years old a nd patients) (1 - 1-dose 75+ series) 02/04/2060 HIV Screening Completed 06/23/2024 Hepatitis C Screening Completed 06/23/2024 Procedures * Due to [place] state law, this organization might not be [...] Last 3 Months Results * Due to [place] state law, this organization might not be sharing negative HIV tests. * (ABNORMAL) Creatine Kinase (06/25/2024 7:41 PM EST) Only the most recent of9 resultswithin the time period is included. CK 1,115(H) 49 - 348 U/L 06/25/2024 8:35 PM EST [facility] Blood Structure of peripheral vein / Unknown Venipuncture / Unknown 06/25/2024 7:41 PM EST 06/25/2024 8:05 PM EST us Quintin Ng MD LAB BLOOD ORDERABLES Final Res ult [facility] [address] [place] [address], [place] * (ABNORMAL) POCT Glucose, interfaced (06/25/2024 5:00 PM EST) Only the most recent of11 resultswithin the time period is included. Glucose, POCT 312(H) 70 - 99 mg/dL 06/25/2024 5:01 PM EST [facility] Comment: The under cutter has not determined the efficacy of this test in Critically ill patients. ??[facility] defines Critically ill patients for the [...] POCT ORDERABLES - DEVICE Fin al Result [facility] [address] [place] [address], [place] * (ABNORMAL) CBC Auto Differential (06/25/2024 6:41 AM EST) Only the most recent of4 resultswithin the time period is included. WBC 6.9 3.8 - 10.8 10*3/uL 06/25/2024 7:36 AM EST [facility] RBC 4.07(L) 4.20 - 5.80 10*6/uL 06/25/2024 7:36 AM EST [facility]ITALi3 membraneMN [employer] [facility] Hemoglobin 10.1(L) 13.2 - [...] <0.03 <=0.03 10*3/uL 06/25/2024 7:36 AM EST [facility] Lymphocyte # 1.70 0.85 - 3.90 10*3/uL 06/25/2024 7:36 AM EST [facility]ongo[facility] Monocyte # 0.70 0.20 - 0.95 10*3/uL 06/25/2024 7:36 AM EST [facility] Eosinophil # 0.10 0.02 - 0.50 10*3/uL 06/25/2024 7:36 AM EST [facility] Basophil # <0.03 0.00 - 0.20 10*3/uL 06/25/2024 7:36 AM EST [facility] nRBC % 0.0 /100 WBCs 06/25/2024 7:36 AM EST [employer] [employer] [employer] [facility] nRBC # <0.01 <0.01 10*3/uL 06/25/2024 7:36 AM EST [employer] [facility] [employer] [facility] Blood Structure of peripheral vein / Unknown Venipuncture / Unknown 06/25/2024 6:41 AM EST 06/25/2024 7:29 AM EST Alex Brand MD LAB BLOOD ORDERABLES Fin al Result [facility]PITALGoChongoTRIHE[facility] [employer] [facility] [address] [place] [address], * Phosphorus (06/25/2024 6:41 AM EST) Only the most recent of3 resultswithin the time period is included. Phosphorus 3.0 2.5 - 4.5 mg/dL 06/25/2024 8:07 AM EST [facility] Blood Structure of peripheral vein / Unknown Venipuncture / Unknown 06/25/2024 6:41 AM EST 06/25/2024 7:29 AM EST Alex Brand MD LAB BLOOD ORDERABLES Fin al Result Performing Organization Address City/[facility] Co de Phone Number [facility] [address] [place] [address] * Magnesium (06/25/2024 6:41 AM EST) Only the most recent of3 resultswithin the time period is included. MG 1.8 1.6 - 2.4 mg/dL 06/25/2024 8:07 AM EST [facility] Blood Structure of peripheral vein / Unknown Venipuncture / Unknown 06/25/2024 6:41 AM EST 06/25/2024 7:29 AM EST Alex Brand MD LAB BLOOD ORDERABLES Fin al Result Performing Organization Address [facility] de Phone Number [facility] [address] [place] [address] * (ABNORMAL) Basic metabolic panel (06/25/2024 6:41 AM EST) Only the most recent of4 resultswithin the time period is included. NA 140 135 - 145 mmol/L 06/25/2024 8:07 AM EST [facility] K 4.1 3.5 - 5.3 mmol/L 06/25/2024 8:07 AM EST [employer] [employer] [facility] Cl 103 98 - 107 mmol/L 06/25/2024 8:07 AM EST [employer] [facility] [employer] [employer] [facility] CO2 26 22 - 32 mmol/L 06/25/2024 8:07 AM EST [facility] [employer] [employer] [facility] BUN 11 7 - 23 mg/dL 06/25/2024 8:07 AM EST [facility] [employer] [employer] [facility] Creatinine 0.97 0.60 - 1.30 mg/dL 06/25/2024 8:07 AM EST [facility] Glucose 210(H) 65 - 99 mg/dL 06/25/2024 8:07 AM EST [employer] [facility] Calcium 9.2 8.6 - 10.5 mg/dL 06/25/2024 8:07 AM EST [facility]ENTERPunchdTR[facility]HE[facility] Anion Gap 11 5 - 15 06/25/2024 8:07 AM EST [facility]ITALGoChongoTRIHE[facility] [employer] [facility] eGFR >90 >=60 mL/min/1. 73m2 06/25/2024 8:07 AM EST [facility]ITALGoChongoTRIHE[facility] Comment:The estimated glomer ular [...] MD LAB BLOOD ORDERABLES Fin al Result [facility]PITALGoChongoTRIHE[facility] [employer] [facility] [address] [place] [address], * Souris Top (06/23/2024 4:20 PM EST) Extra Tube Hold for add-ons. 06/23/2024 9:05 PM EST [email or web address] [facility] Comment:Auto resulted. Urine Urine specimen collection, clean catch / Unknown 06/23/2024 4:20 PM EST 06/23/2024 4:20 PM EST Quintin Ng MD LAB BLOOD ORDERABLES Final Res ult [facility] [address] [place] [address], [place] * Methadone Screen w/Confirmation, Urine (06/23/2024 4:11 PM EST) Methadone Metabolite Screen, Urine NEGATIVE <100 ng/mL 06/24/2024 5:13 AM EST [facility] Comment: See Note 1 Urine Voided urine specimen / Unknown Non-Blood Collection / Unknown 06/23/2024 4:11 PM EST 06/23/2024 4:18 PM EST Narrative [facility] [place] - 06/24/2024 5:13 AM EST [facility] Received Date: Quintin Ng MD LAB URINE ORDERABLES Final Res ult [facility] [address] [facility] 3rd Floor, [place] [address], [employer] [facility] [address] [facility] 3rd Floor, [place] [address], [place] [phone] * Morphine and Codeine Confirmation, Urine (06/23/2024 4:11 PM EST) Codeine, Urine NEGATIVE <50 ng/mL 06/25/2024 9:46 AM EST [facility] Comment: See Note 1 Hydrocodone, Urine NEGATIVE <50 ng/mL 06/25/2024 9:46 AM EST [facility] Comment: See Note 1 Hydromorphone, Urine NEGATIVE <50 ng/mL 06/25/2024 9:46 AM EST [facility] Comment: See Note 1 Morphine, Urine NEGATIVE <50 ng/mL 9:46 AM EST [facility] Comment: See Note 1 Norhydrocodone, Urine NEGATIVE <50 ng/mL 06/25/2024 9:46 AM EST [facility] Comment: See Note 1 See Note 2 Note 1 This test was developed and its analytical performance characteristics have been determined by [employer]. It has not been cleared or approved [...] interpreting these drug results, please contact a [employer] Toxicology Specialist: [phone] ( ), M-F, 8am-6pm EST. Urine Voided urine specimen / Unknown Non-Blood Collection / Unknown 06/23/2024 4:11 PM EST 06/23/2024 4:18 PM EST Narrative [facility] - 06/25/2024 9:46 AM EST [facility] Received Date: us Quintin Ng MD LAB URINE ORDERABLES Final Res ult [facility] [place] [address] [facility] [address]rd Floor, [place] [address], [place] [phone] [employer] [facility] [address] [facility] 3rd Floor, [place] [address], [place] [phone] * Barbiturate Screen, Urine (06/23/2024 4:11 PM EST) Barbiturate Screen, Urine Negative Negative 06/23/2024 5:19 PM EST [facility] Comment: Detection limit of [...] MD LAB URINE ORDERABLES Final Res ult [employer] [facility] [address] [place] [address], [place] * Propoxyphene Screen, Urine (06/23/2024 4:11 PM EST) Propoxyphene Screen, Urine NEGATIVE <300 ng/mL 06/24/2024 5:13 AM EST [employer] [facility] Comment: See Note 2 Note 1 This drug testing is for medical treatment only. ?? Analysis was performed as non-forensic testing and these results should be used only by healthcare providers to render diagnosis or treatment, or to monitor progress of medical conditions. For assistance with interpreting these drug results, please contact a [employer] Toxicology Specialist: [phone] ( ), M-F, 8am-6pm EST. Note [...] interpreting these drug results, please contact a [employer] Toxicology Specialist: [phone] ( ), M-F, 8am-6pm EST. Urine Voided urine specimen / Unknown Non-Blood Collection / Unknown 06/23/2024 4:11 PM EST 06/23/2024 4:18 PM EST Narrative [facility] - 06/24/2024 5:13 AM EST [facility] Received Date: us Quintin Ng MD LAB URINE ORDERABLES Final Res ult [facility] [place] [address] [facility] 3rd Floor, [place] [address], [place] [phone] [employer] [facility] [address] [facility] 3rd Floor, [place] [address], [place] [phone] * Marijuana Qualitative Screen, Urine (06/23/2024 4:11 PM EST) Marijuana Screen, Urine Negative Negative 06/23/2024 5:19 PM EST [facility] Comment: Detection limit of 50 ng/mL of 56-Ywa-myuke-1-NKW-3-carboxylic acid. Drug results are to be used only for medical purposes. ??Unconfirmed screening results must not be used for non-medical purposes. Urine Voided urine specimen / Unknown Non-Blood Collection / Unknown 06/23/2024 4:11 PM EST 06/23/2024 4:18 PM EST Quintin Ng MD LAB URINE ORDERABLES Final Res ult [facility] [address] [place] [address], * Phencyclidine (PCP) Screen, Urine (06/23/2024 4:11 PM EST) Pathologist [facility] Phencyclidine Screen, Urine NEGATIVE <25 ng/mL 06/24/2024 5:13 AM EST [employer] [facility] Comment: See Note 2 Urine Voided urine specimen / Unknown Non-Blood Collection / Unknown 06/23/2024 4:11 PM EST 06/23/2024 4:18 PM EST Narrative [facility] - 06/24/2024 5:13 AM EST [facility] Received Date:[id number] Quintin Ng MD LAB URINE ORDERABLES Final Res ult [employer] [place] [address] [facility] 3rd Floor, [place] [address], [place] [phone] [employer] [address] [facility] 3rd Floor, [place] [address], [place] [phone] * (ABNORMAL) Cocaine Qualitative, Urine (06/23/2024 4:11 PM EST) Pathologist [facility] Cocaine Metabolite Screen, Urine Presumptive Positive(A) Negative 06/23/2024 5:19 PM EST [facility] Comment: Detection limit of 300 ng/mL of Benzoylecgonine. Drug results are to be used only for medical purposes. ??Unconfirmed screening results must not be used for non-medical purposes. Urine Voided urine specimen / Unknown Non-Blood Collection / Unknown 06/23/2024 4:11 PM EST 06/23/2024 4:18 PM EST Quintin Ng MD LAB URINE ORDERABLES Final Res ult Performing Organization Address [facility] Co de Phone Number [facility] [employer] [facility] [address] [place] [address], [place] * Benzodiazepine Qualitative Screen, Urine (06/23/2024 4:11 PM EST) Benzodiazepine Screen, Urine Negative Negative 06/23/2024 5:19 PM EST [email or web address] [facility] Comment: Detection limit of 200 ng/mL of Nordiazepam. Drug results are to be used only for medical purposes. ??Unconfirmed screening results must not be used for non-medical purposes. Urine Voided urine specimen / Unknown Non-Blood Collection / Unknown 06/23/2024 4:11 PM EST 06/23/2024 4:18 PM EST Quintin Ng MD LAB URINE ORDERABLES Final Res ult Performing Organization Address [facility] Co de Phone Number [facility] [employer] [facility] [address] [place] [address], [place] * Amphetamine Qualitative, Urine (06/23/2024 4:11 PM EST) Amphetamine Screen, Urine Negative Negative 06/23/2024 5:19 PM EST [email or web address] [facility] Comment: Detection limit of 1000 ng/mL of d-Methamphetamine. Drug results are to be used only for medical purposes. ??Unconfirmed screening results must not be used for non-medical purposes. Urine Voided urine specimen / Unknown Non-Blood Collection / Unknown 06/23/2024 4:11 PM EST 06/23/2024 4:18 PM EST Quintin Ng MD LAB URINE ORDERABLES Final Res ult Performing Organization Address City/[facility] Co de Phone Number [facility] [address] [place] [address], * TSH Reflex Free T4 (06/23/2024 7:46 AM EST) TSH 0.337 0.280 - 3.890 uIU/mL 06/23/2024 2:56 PM EST [facility] Blood Structure of peripheral vein / Unknown Venipuncture / Unknown 06/23/2024 7:46 AM EST 06/23/2024 7:51 AM EST Quintin Ng MD LAB BLOOD ORDERABLES Final Res ult Performing Organization Address [facility] Phone Number [facility] [address] [place] [address], * (ABNORMAL) Hemoglobin A1c (06/23/2024 7:46 AM EST) Hemoglobin A1C 7.9(H) <5.7 % of total Hgb 06/23/2024 12:45 PM EST [facility] Comment: For someone without known diabetes, a [...] (MG/DL) 180 mg/dL 06/23/2024 12:45 PM EST [facility] eAG (MMOL/L) 10.0 mmol/L 06/23/2024 12:45 PM EST [facility] Blood Structure of peripheral vein / Unknown Venipuncture / Unknown 06/23/2024 7:46 AM EST 06/23/2024 7:46 AM EST [facility]arr[facility] [place] - 06/23/2024 12:45 PM EST [facility] Received Date: Alex Brand MD LAB BLOOD ORDERABLES Fin al Result [facility] [place] [address] [facility] 3rd Floor, [place] [address], [place] [phone] [employer] [facility] [address] [facility] 3[address], [place] [address], [place] [phone] * Folate (06/23/2024 7:46 AM EST) Folate 15.0 4.8 - 24.2 ng/mL 06/23/2024 2:56 PM EST [facility] Blood Structure of peripheral vein / Unknown Venipuncture / Unknown 06/23/2024 7:46 AM EST 06/23/2024 7:51 AM EST Qunitin Ng MD LAB BLOOD ORDERABLES Final Res ult Performing Organization Address [facility]/ZIP Co de Phone Number [facility] [address] [place] [address], [place] * Vitamin B12 (06/23/2024 7:46 AM EST) Vitamin B12 584 232 - 1,245 pg/mL 06/23/2024 2:56 PM EST [facility] Blood Structure of peripheral vein / Unknown Venipuncture / Unknown 06/23/2024 7:46 AM EST 06/23/2024 7:51 AM EST Quintin Ng MD LAB BLOOD ORDERABLES Final Res ult Performing Organization Address City/[facility]/ZIP Co de Phone Number [facility] [address] [place] [address], [place] * Hepatitis C Antibody w/Reflex to HCV RNA, Quantitative PCR (06/23/2024 7:44 AM EST) Hepatitis C Antibody NON-REACT ZAINA NON-REACT ZAINA 06/23/2024 9:10 PM EST [employer] [facility] Comment: HCV antibody was non-reactive. There is no laboratory evidence of HCV infection. In most cases, no further action is required. However, if recent HCV exposure is suspected, a test for HCV RNA (test code 27994) is suggested. For additional information please refer to http://education.SGB/faq/AEE77r7 (This link is being provided for informational/ educational purposes only.) Blood Structure of peripheral vein / Unknown Venipuncture / Unknown 06/23/2024 7:44 AM EST 06/23/2024 7:45 AM EST Narrative [facility] [place] - 06/23/2024 9:10 PM EST [facility] Received Date: Alex Brand MD LAB BLOOD ORDERABLES Fin al Result [address] [facility], [place] [address], [place] [phone] [employer] [address], [place] [address], [place] [phone] * Navarro Top, Urine (06/22/2024 7:38 PM EST) Pathologist [facility] Extra Tube Hold for add-ons. 06/23/2024 1:06 AM EST [facility] Comment:Auto resulted. Urine Urine specimen collection, clean catch / Unknown Non-Blood Collection / Unknown 06/22/2024 7:38 PM EST 06/22/2024 7:49 PM EST Alex Brand MD LAB URINE ORDERABLES Fin al Result [facility] [address] [place] [address], [place] * (ABNORMAL) Urinalysis W/Reflex to Microscopic & Culture (06/22/2024 7:38 PM EST) Color, Urine Light Yellow Colorless, Light Yellow, Yellow, Dark Yellow 06/22/2024 8:17 PM EST [employer] [facility] [employer] [facility] Clarity, Urine Clear Clear 06/22/2024 8:17 PM EST [employer] [facility] [employer] [facility] Specific [place], Urine 1.020 1.005 - 1.030 06/22/2024 8:17 PM EST [employer] [facility] [employer] [facility] pH, Urine 6.0 4.6 - 8.0 06/22/2024 8:17 PM EST [employer] [facility] [employer] [facility] Protein, Urine Negative Negative 06/22/2024 8:17 PM EST [employer] [facility] [employer] [facility] Glucose, Urine 3+(A) Negative 06/22/2024 8:17 PM EST [employer] [facility] [employer] [facility] Ketones, Urine 1+(A) Negative 06/22/2024 8:17 PM EST [employer] [facility] [employer] [facility] Bilirubin, Urine Negative Negative 06/22/2024 8:17 PM EST [employer] [facility] [employer] [facility] Blood, Urine 2+(A) Negative 06/22/2024 8:17 PM EST [employer] [facility] [employer] [facility] Nitrite, Urine Negative Negative 06/22/2024 8:17 PM EST [employer] [facility] Urobilinogen, Urine Normal Normal 06/22/2024 8:17 PM EST [employer] [facility] [employer] [facility] Leukocyte Esterase, Urine Negative Negative 06/22/2024 8:17 PM EST [facility] WBC, Urine <1 0 - 2 /HPF 06/22/2024 8:17 PM EST [employer] [facility] [employer] [facility] RBC, Urine <1 0 - 2 /HPF 06/22/2024 8:17 PM EST [employer] [facility] [employer] [facility] Hyaline Casts, Urine 0 0 - 2 /LPF 06/22/2024 8:17 PM EST [facility] Bacteria, Urine None None /HPF /HPF 06/22/2024 8:17 PM EST [facility] Urine Urine specimen collection, clean catch / Unknown Non-Blood Collection / Unknown 06/22/2024 7:38 PM EST 06/22/2024 7:49 PM EST Alex Brand MD LAB URINE ORDERABLES Fin al Result Performing Organization Address City/[facility]/ZIP Co de Phone Number [facility] [address] [place] [address], [place] * Blood Culture, Peripheral #2 (06/22/2024 6:42 PM EST) Only the most recent of2 resultswithin the time period is included. Culture No growth after 5 days 06/27/2024 10:22 PM EST [facility] Blood Structure of peripheral vein / Unknown Venipuncture / Unknown 06/22/2024 6:42 PM EST 06/22/2024 7:04 PM EST Narrative [facility] [place] - 06/27/2024 10:22 PM EST [facility] Received Date: MICRO NUMBER: [id number] SPECIMEN QUALITY: Suboptimal SOURCE: BLOOD VENOUS, PERIPHERAL STATUS: FINAL COMMENT: Aerobic and anaerobic bottle received. Inspection of blood culture bottles indicates that an inadequate volume of blood may have been collected for the detection of sepsis. Alex Brand MD LAB MICROBIOLOGY - GENER AL ORDERABLES Final Result Performing Organization Address City/[facility]/ZIP Co de Phone Number [facility] [place] [address] [facility] 3rd [address], [place] [address], [employer] [facility] [address] [facility] [address]rd [address], [place] [address], * X-Ray Hand Left 3+ Views (06/22/2024 [...] obtain the completed interpretation. ? Workstation ID: [id number] Narrative 06/22/2024 2:06 PM EST COMPARISON: ??None. ?? FINDINGS AND Resulting Agency Comment [id number] Procedure Note Antonia Wayne MD - 06/22/2024 COMPARISON: None. FINDINGS AND IMPRESSION: No acute fracture or dislocation. Alignment and joint spaces aremaintained. Soft tissues are within normal limits. If this radiology report contains a blank impression section, it is anincomplete radiology report. Please contact the interpreting radiologistor applicable radiology division as soon as possible to obtain thecompleted interpretation. Workstation ID: [id number] us Sofía Hardy MD IMG XR PROCEDURES Final Res ult * ECG 12 lead (06/22/2024 1:31 PM EST) Only the most recent of2 resultswithin the time period is included. Ventricular Rate EKG 86 BPM MUSE EKG Atrial Rate 86 BPM MUSE EKG IN Interval 132 ms MUSE EKG QRS Interval 90 ms MUSE EKG QT Interval 362 ms MUSE EKG QTC Interval 433 ms MUSE EKG P [place] 53 degrees MUSE EKG R [place] 30 degrees MUSE EKG T Wave [place] 33 degrees MUSE EKG 06/22/2024 1:31 PM [...] - 1.9 mmol/L 06/22/2024 11:47 AM EST [facility] Blood Structure of peripheral vein / Unknown Venipuncture / Unknown 06/22/2024 10:59 AM EST 06/22/2024 11:17 AM EST Sofía Hardy MD LAB BLOOD ORDERABLES Final Result Performing Organization Address [facility] Co de Phone Number [facility] [address] [place] [address], [place] * CT C-Spine WO Contrast (06/22/2024 [...] obtain the completed interpretation. ? Workstation ID: [id number] Up-to-date CT equipment and radiation dose reduction techniques were employed. CTDIvol: 26.2 - 70.4 mGy. DLP: 2128 mGy-cm. ??The following accession numbers are related to this dose report [id number]: [id number] Narrative 06/22/2024 9:50 AM EST COMPARISON: No [...] tissues are unremarkable. ?? Resulting Agency Comment [id number] Procedure Note Paulo Osuna, DO - 06/22/2024 [...] possible to obtain thecompleted interpretation. Workstation ID: [id number] Up-to-date CT equipment and radiation dose reduction techniques wereemployed. CTDIvol: 26.2 - 70.4 mGy. DLP: 2128 mGy-cm. The followingaccession numbers are related to this dose report [id number]: [id number] Sofía Hardy MD IMG CT PROCEDURES Final [...] obtain the completed interpretation. ? Workstation ID: [id number] Up-to-date CT equipment and radiation dose reduction techniques were employed. CTDIvol: 26.2 - 70.4 mGy. DLP: 2128 mGy-cm. ??The following accession numbers are related to this dose report [id number]: [id number] Narrative 06/22/2024 9:48 AM EST TECHNIQUE: 3D [...] cells are well aerated. Resulting Agency Comment [id number] Procedure Note Paulo Osuna, - 06/22/2024 TECHNIQUE: [...] possible to obtain thecompleted interpretation. Workstation ID: [id number] Up-to-date CT equipment and radiation dose reduction techniques wereemployed. CTDIvol: 26.2 - 70.4 mGy. DLP: 2128 mGy-cm. The followingaccession numbers are related to this dose report [id number]: [id number] us Sofía Hardy MD IM CT PROCEDURES Final Res ult * COVID-19, Flu A/B & RSV RNA PCR, Symptomatic (06/22/2024 8:10 AM EST) PCR, SARS CoV-2 RNA Not Detected Not Detected CEPApplied Cell TechnologyXPERT 06/22/2024 8:57 AM EST [facility] Comment:A Not Detected (Nega [...] A RNA PCR Not Detected Not Detected CEPWentworth TechnologyID GENEXPERT 06/22/2024 8:57 AM EST [facility] Comment:Negative results do not preclude infection and should not be used as the sole basis for diagnosis, treatment or other patient management decisions. Negative results must be combined with clinical observations, patient history, and/or epidemiological information. Flu B RNA PCR Not Detected Not Detected CEPWentworth TechnologyID GENEXPERT 06/22/2024 8:57 AM EST [facility] Comment:Negative results do not preclude infection and should not be used as the sole basis for diagnosis, treatment or other patient management decisions. Negative results must be combined with clinical observations, patient history, and/or epidemiological information. RSV RNA PCR Not Detected Not Detected CEPWentworth TechnologyID GENEXPERT 06/22/2024 8:57 AM EST [facility] Comment:Negative results do not preclude infection and should not be used as the sole basis for diagnosis, treatment or other patient management decisions. Negative results must be combined with clinical observations, patient history, and/or epidemiological information. Swab (Nares) Non-Blood Collection / Unknown 06/22/2024 8:10 AM EST 06/22/2024 8:10 AM EST [facility] - 06/22/2024 8:57 AM EST This test was developed, validated and its performance characteristics determined by [facility]. This test has not been cleared or approved by the U.S. Food and Drug Administration (FDA). FDA Policy for Diagnostic Tests for Coronavirus Disease-2019 during the Public Health Emergency issued August 04, 2019, is followed. us Sofía Hardy MD LAB BODY FLUIDS AND STOOLS ORDERABLES Final Result Performing Organization Address [facility]/ZIP Co de Phone Number [facility] [address] [place] [address], [place] * (ABNORMAL) Lactic Acid (w/Repeat if >2) - Sepsis (06/22/2024 8:08 AM EST) Lactic Acid 2.7(H) 0.5 - 1.9 mmol/L 06/22/2024 8:41 AM EST [facility] Blood Structure of peripheral vein / Unknown Venipuncture / Unknown 06/22/2024 8:08 AM EST 06/22/2024 8:13 AM EST Sofía Hardy MD LAB BLOOD ORDERABLES Final Result Performing Organization Address [facility] Co de Phone Number [facility] [address] [place] [address], [place] * Lipase (06/22/2024 8:08 AM EST) Lipase 27 13 - 60 U/L 06/22/2024 8:48 AM EST [facility] Blood Structure of peripheral vein / Unknown Venipuncture / Unknown 06/22/2024 8:08 AM EST 06/22/2024 8:12 AM EST us Sofía Hardy MD LAB BLOOD ORDERABLES Final Result Performing Organization Address City/[facility]/ZIP Co de Phone Number [facility] [address] [place] [address], [place] * Ethanol (06/22/2024 8:08 AM EST) Ethanol <10 <10 mg/dL 06/22/2024 8:45 AM EST [facility] Blood Structure of peripheral vein / Unknown Venipuncture / Unknown 06/22/2024 8:08 AM EST 06/22/2024 8:12 AM EST us Sofía Hardy MD LAB BLOOD ORDERABLES Final Result [facility] [address] [place] [address], [place] * (ABNORMAL) CMP - Comprehensive Metabolic Panel (06/22/2024 8:08 AM EST) NA 138 135 - 145 mmol/L 06/22/2024 8:48 AM EST [facility] K 4.7 3.5 - 5.3 mmol/L 06/22/2024 8:48 AM EST [facility] Cl 97(L) 98 - 107 mmol/L 06/22/2024 8:48 AM EST [facility] CO2 16(L) 22 - 32 mmol/L 06/22/2024 8:48 AM EST [facility] [employer] [facility] Anion Gap 25(H) 5 - 15 06/22/2024 8:48 AM EST [facility] Glucose 235(H) 65 - 99 mg/dL 06/22/2024 8:48 AM EST [facility] Creatinine 1.30 0.60 - 1.30 mg/dL 06/22/2024 8:48 AM EST [facility] Calcium 9.3 8.6 - 10.5 mg/dL 06/22/2024 8:48 AM EST [facility] Total Protein 8.1(H) 6.0 - 8.0 g/dL 06/22/2024 8:48 AM EST [facility] Albumin 4.5 3.5 - 5.2 g/dL 06/22/2024 8:48 AM EST [facility] Bilirubin, Total 0.5 0.2 - 1.2 mg/dL 06/22/2024 8:48 AM EST [facility] Alkaline Phosphatase 60 35 - 129 U/L 06/22/2024 8:48 AM EST [facility] AST 314(H) 10 - 40 U/L 06/22/2024 8:48 AM EST [facility] ALT 142(H) 10 - 40 U/L 06/22/2024 8:48 AM EST [facility] BUN 50(H) 7 - 23 mg/dL 06/22/2024 8:48 AM EST [facility] eGFR 72 >=60 mL/min/1. 73m2 06/22/2024 8:48 AM EST [facility] Comment:The estimated glomer ular [...] - 4.2 g/dL 06/22/2024 8:48 AM EST [facility] A/G Ratio 1.3(L) 1.5 - 3.0 06/22/2024 8:48 AM EST [facility] Blood Structure of peripheral vein / Unknown Venipuncture / Unknown 06/22/2024 8:08 AM EST 06/22/2024 8:12 AM EST us Sofía Hardy MD LAB BLOOD ORDERABLES Final Result [facility] [address] [place] [address], [place] * XR Chest Portable 1 View [...] obtain the completed interpretation. ? Workstation ID: [id number] Narrative 06/22/2024 8:14 AM EST COMPARISON: None. FINDINGS: Lines/Tubes/Devices: None. Lungs: No consolidation or pulmonary edema. Pleura: No pleural effusion. No pneumothorax. Heart/Mediastinum: The cardiac and mediastinal contours are normal. Bones/Soft tissues: No acute osseous abnormality. Resulting Agency Comment [id number] Procedure Note Paulo Osuna DO - 06/22/2024 [...] possible to obtain thecompleted interpretation. Workstation ID: [id number] us Sofía Hardy MD IMG XR PROCEDURES Final Res ult * HEART & VASCULAR - SCANNED (06/22/2024) Anatomical Region Laterality Modality Other us Onbase Scan Paras SCANNED PROCEDURES Final Resu lt from Last [address] 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
--- OUTSIDE RECORDS SUMMARY | 2024-07-10 15:34 | XMS_ITS | Encounter Summary ---
Author Organization [facility] Address [address] [id number] Care Team Providers Care Dope And Fabric Worker Name Role Phone LaurenceariDayne urbina Primary Care Provider [phone] Reason for Visit * Reason Comments Found Down * Auth/Cert (Routine) Specialty Diagnoses / Procedures Referred By Contac t Referred To Contact Diagnoses Rhabdomyolysis Referral ID Status Reason Start Date Expiration Date Visits Re quested Visits Authorized [id number] 99 [phone] Encounter Details Date Type Department Care Team (Latest Contact Info) Description 06/22/2024 7:39 AM EST - 06/25/2024 9:01 PM [facility] Hospital Encounter [facility] Emergency Department [address] [place] [address] Sofía Hardy MD [address] [place] [address] 19274 Mack Cortez MD [address] [place] [address] Alex Hines MD [address] [place] [address] 78321 Quintin Ng MD [address] [place] [address] 76348 Zuleyma Maldonado MD [address] [place] [address] 16225 Rhabdomyolysis (Primary Dx); Opioid use disorder, severe, [...] 8 06/24/2024 5:00 PM EST Marisol Huynh [facility] documented as of this encounter Discharge Summaries * Zuleyma Maldonado MD - 06/25/2024 2:31 PM EST Images from the original note were not included. DISCHARGE SUMMARY [facility] DISCHARGE INFORMATION: Date and Time of Admission: 06/22/2024 7:03 PM Date of Discharge: 06/25/24 DISCHARGE DIAGNOSIS: Problem List Active Problems Cocaine use disorder (HCC) Frostbite of both feet Intentional drug overdose (HCC) Nondependent alcohol abuse Opioid use disorder AVRIL (obstructive sleep apnea) Suicidal ideation T2DM (type 2 diabetes mellitus) ([facility]) Resolved Problems * (Principal) RESOLVED: Rhabdomyolysis RESOLVED: Fever ATTENDING PHYSICIAN ON DISCHARGE: Attending Provider: Zuleyma Maldonado MD [phone] FOLLOW-UPS AND SCHEDULED APPOINTMENTS: Future Appointments Date Time Provider Department Center 07/01/2024 4:00 PM AARON Velasquez [facility] CONTACT INFORMATION FOR FOLLOW-UP Dayne Dubose Relationship: PCP - General [address] [place] [address] Next Steps: Call in 2 week(s) PENDING [...] abuse (alcohol, cocaine and opioids) presented to [facility] ED on 06/22 after being found down [...] Propoxyphene Screen, Urine NEGATIVE <300 ng/mL UA [place] Collection Time: 06/23/24 4:20 PM Specimen: [...] to obtain the completed interpretation. Workstation ID: [id number] CT C-Spine WO Contrast Result Date: 06/22/2024 All Results No acute fracture or traumatic malalignment of the cervical spine. If this radiology report contains a blank impression section, it is an incomplete radiology report. Please contact the interpreting radiologist or applicable radiology division as soon as possible to obtain the completed interpretation. Workstation ID: [id number] Up-to-date CT equipment and radiation dose reduction techniques were employed. CTDIvol: 26.2 - 70.4 mGy. DLP: 2128 mGy-cm. The following accession numbers are related to this dose report [id number]: [id number] CT Head WO Contrast Result Date: 06/22/2024 All Results No acute intracranial hemorrhage, large territorial infarction, or mass effect. If thisradiology report contains a blank impression section, it is an incomplete radiology report. Please contact the interpreting radiologist or applicable radiology division as soon as possible to obtain the completed interpretation. Workstation ID: [id number] Up-to-date CT equipment and radiation dose reduction techniques were employed. CTDIvol: 26.2 - 70.4 mGy. DLP: 2128 mGy-cm. The following accession numbers are related to this dose report [id number]: [id number] XR Chest Portable 1 View Result Date: 06/22/2024 All Results No acute pulmonary process or acute displaced fracture. If this radiology report contains a blank impression section, it is an incomplete radiology report. Please contact the interpretingradiologist or applicable radiology division as soon as possible to obtain the completed interpretation. Workstation ID: [id number] GLOBAL PLAN OF CARE CONSULTS: IP CONSULT [...] Wound Clinic as scheduled. You may call [phone] (Dr. Salcedo) if you have any questions [...] apnea) Cardiomegaly Suicidal ideation Intentional drug overdose ([facility]) Celso Blanton is a 39 y.o. male [...] Surgery Contact Information: -Sunday to Sunday 6am-5pm: #[phone] (PRSS) for primary patients and existing consults; see PRS on callschedule for new consults -Sunday to Sunday 5pm-6am & Weekends: see PRS supervisor mold construction schedule for primary patients, existing consults, and [...] fluffs between toes and loose Kerlix wraps -public speaking instructor consulted Fever Initially hypothermic secondary to exposure. [...] drug rehab program before being discharged to [facility], more recently he is homeless and [...] disorder (alcohol, cocaine, opioids), who presented to [facility] ED on 06/22/2024 after being found down. [...] abuse (alcohol, cocaine and opioids) presented to [facility] ED on 06/22 after being found down [...] 1.7. CK level continues to downtrend from 9136-1488 today. Anemia worsened from 11.5-9.6 in the [...] drug rehab program before being discharged to [facility], more recently he is homeless and [...] disorder (alcohol, cocaine, opioids), who presented to [facility] ED on 06/22/2024 after being found down. [...] Ringer's (LR) premix infusion intravenous, Continuous 06/23/24 9288 NUTRITION: Diet, Adult Suicide Risk Safety Tray [...] note were not included. History & Physical State [employer] Admission Date: 06/22/2024 7:39 AM LOS: 1 day Primary Care Physician: PATIENT, HAS NO PCP OR REF Attending Physician: Alex Hines MD Service: Hospital Medicine SUBJECTIVE Chief Complaint: Found down; rhabdomyolysis HPI: Celso Blanton is a 39 y.o. male with a PMHx of smoking, obesity, polysubstance use disorder(alcohol, cocaine, opioids), who presented to [facility] ED on 06/22/2024 after being found down. [...] drug rehab program before being discharged to [facility], more recently he is homeless and [...] for component: T3 No components found for: [id number] No results found for: CKTOTAL , CKMB [...] to obtain the completed interpretation. Workstation ID: [id number] CT C-Spine WO Contrast Result Date: 06/22/2024 No acute fracture or traumatic malalignment of the cervical spine. If this radiology report contains a blank impression section, it is an incomplete radiology report. Please contact the interpreting radiologist or applicable radiology division as soon as possible to obtain the completed interpretation. Workstation ID: [id number] Up-to-date CT equipment and radiation dose reduction techniques wereemployed. CTDIvol: 26.2 - 70.4 mGy. DLP: 2128 mGy-cm. The following accession numbers are related to this dose report [id number]: [id number] CT Head WO Contrast Result Date: 06/22/2024 No acute intracranial hemorrhage, large territorial infarction, or mass effect. If this radiology report contains a blank impression section, it is an incomplete radiology report. Please contact the interpreting radiologist or applicable radiology division as soon as possible to obtain the completed interpretation. Workstation ID: [id number] Up-to-date CT equipment and radiation dose reduction techniques were employed. CTDIvol: 26.2 - 70.4 mGy. DLP: 2128 mGy-cm. The following accession numbers are related to this dose report [id number]: [id number] XR Chest Portable 1 View Result Date: 06/22/2024 No acute pulmonary process or acute displaced fracture. If this radiology report contains a blank impression section, it is an incomplete radiology report. Please contact the interpreting radiologistor applicable radiology division as soon as possible to obtain the completed interpretation. Workstation ID: [id number] Assessment & Plan 39 y.o. male with smoking, obesity, polysubstance use disorder (alcohol, cocaine, opioids), who presented to [facility] ED on 06/22/2024 after being found down. [...] Rhabdomyolysis Assessment & Plan Patient presented to [facility] ED on 06/22/2024 after being found down, [...] disorder (alcohol, cocaine, opioids), who presented to [facility] ED on 06/22/2024 after being found down. [...] on CPAP. T2DM (type 2 diabetes mellitus) ([facility]) Assessment & Plan History of T2DM, managed [...] drug rehab program before being discharged to [facility], more recently he is homeless and [...] Patient and Inter-professional team. Alex Hines MD [facility] Medicine 06/23/2024 documented in this encounter Consult Notes * Dara Anderson MD - 06/25/2024 4:51 PM EST ADDICTION PSYCHIATRY FOLLOW UP NOTE Diagnosis: Patient Active Problem List Diagnosis Tobacco use disorder Obesity Nondependent alcohol abuse Cocaine use disorder (HCC) Opioid use disorder Frostbite of both feet T2DM (type 2 diabetes mellitus) ([facility]) AVRIL (obstructive sleep apnea) Cardiomegaly Suicidal ideation Intentional drug overdose ([facility]) Record Review: Yes Subjective Patient was seen [...] limited given the interview you sitting in Health System in the ED and the fact that [...] you have any questions. Dara Pink MD Campaign Worker, Addiction Consultation Services [facility] * Marisol Xiong, [facility] - 06/23/2024 12:45 PM ESTAssociated Order(s): IP CONSULT TO ADDICTION PSYCHIATRY Addiction Social Work Consult Identifying Data: Celso Blanton, a 39 y.o. male , two children Housing instability Limited supports From [facility] Not employed History of Present Illness/Problem: In brief, Celso Blanton is a 39 y.o. male with a PMHx of smoking, obesity, polysubstance use disorder (alcohol, cocaine, opioids), who presented to [facility] ED on 06/22/2024 after being found down. [...] per chart review, hx schizophrenia (seen at [facility] in February with diagnosis of paranoid schizophrenia) [...] COWS, when patient starts scoring on COWS eath-ub-fywosvws w/d, can start suboxone 2 mg SL 3 times a day. Patient is pending inpatient psychiatric admission under Section 12. Would recommend dual dx treatment with step-down to substance use recovery supports and/or program. -Recommend engagement with pipe recovery specialist during [facility] stay, along with follow- up engagement post discharge as needed/appropriate (create relapse prevention plan, identify strengths, identify supports; motivational enhancement to encourage hope and change, promote recovery, and provide encouragement). Time spent with the patient: 35 min GEETA Jaramillo Addiction Psychiatry Consultation Services [facility] (call or text) * Brayan Washburn MD [...] (alcohol, crack, cocaine, opioids), who presented to [facility] ED on 06/22/2024 after being found down. Psych being consulted due to suicidal ideation. From what is available in his chart patient was brought to the ED by EMS on 06/21 morning after being found down near to his assisted. He was down for unknown amount of [...] drug rehab program before being discharged to [facility], more recently he is homeless and [...] He [facility]. He endorses that the day he had [...] Health Provider History: Medications last prescribed by [facility] (DATA MANAGEMENT ENGINEER: Kodak Lopez) Psychiatrist: no Therapist:no Previous psychiatric [...] file. Allergies: Codeine Social History: Comes from [place], [place], for many years. Have two kids [...] the hospital he will go to a assisted. Family History: Denies family history of psych. [...] today REFLEXES: Deferred SENSORY: Deferred COORDINATION: Normal iknhbe-qo-rkpj normal in bilateral upper extremities Clock draw: [...] to obtain the completed interpretation. Workstation ID: [id number] CT C-Spine WO Contrast Result Date: 06/22/2024 No acute fracture or traumatic malalignment of the cervical spine. If this radiology report contains a blank impression section, it is an incomplete radiology report. Please contact the interpreting radiologist or applicable radiology division as soon as possible to obtain the completed interpretation. Workstation ID: [id number] Up-to-date CT equipment and radiation dose reduction techniques wereemployed. CTDIvol: 26.2 - 70.4 mGy. DLP: 2128 mGy-cm. The following accession numbers are related to this dose report [id number]: [id number] CT Head WO Contrast Result Date: 06/22/2024 No acute intracranial hemorrhage, large territorial infarction, or mass effect. If this radiology report contains a blank impression section, it is an incomplete radiology report. Please contact the interpreting radiologist or applicable radiology division as soon as possible to obtain the completed interpretation. Workstation ID: [id number] Up-to-date CT equipment and radiation dose reduction techniques were employed. CTDIvol: 26.2 - 70.4 mGy. DLP: 2128 mGy-cm. The following accession numbers are related to this dose report [id number]: [id number] XR Chest Portable 1 View Result Date: 06/22/2024 No acute pulmonary process or acute displaced fracture. If this radiology report contains a blank impression section, it is an incomplete radiology report. Please contact the interpreting radiologistor applicable radiology division as soon as possible to obtain the completed interpretation. Workstation ID: [id number] Assessment - Diagnosis - Goals: Suicide Risk Factors: Previous suicidal attempt, active mandatory auditory hallucinations, active polysubstance use. Suicide Protective Factors: Motivated for treatment. Formulation: Celso Blanton is a 39 y.o. male with a PMHx of smoking and past psychiatric history of schizophrenia (self reported) and polysubstance use disorder (alcohol, crack, cocaine, opioids), who presented to [facility] ED on 06/22/2024 after being found down outside of his assisted for an unknown amount of time. Psych [...] was being treated in the clinic in [facility] but the last prescription is from [...] medical record, including behavioral health notes, via [employer] (or [employer]) unless additional patient authorization is obtained at Point of Care. 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 Unknown down time. Here in ED, hypothermic [...] by me in the absence of a title specialist. Rhythm is normal sinus. Rate of 86. [...] [RS] MD Celso Manzanares : 1985 CSN: [id number] Quintin Waldrop MD Resident 06/22/24 1741 Cosigned [...] by me. Celso Blanton : 1985 CSN: [id number] documented in this encounter Miscellaneous Notes * Plan of Care - Brent Lomas LCSW - 06/25/2024 1:59 PM EST Celso has been accepted to [facility] for inpatient level of care. He will transfer via section 12. * CWOCN - OLI CoretsN - 06/25/2024 1:00 PM EST WOUND OSTOMY [...] CN NAME: Celso Blanton : 1985 CSN: [id number] * Plan of Care - Nellie Del Valle - 06/25/2024 10:10 AM EST RC Note: This RC met with pt in the ED to introduce myself and explore his interest in recovery support. Pt shared that the OD which led to this admission was intentional and not the first time he has tried. Pt shared that he is from the [place] area and that he has been homeless for [id number] yrs. Pt states that his longest period [...] support of further resources. Nellie Del Valle, [facility] [phone] * Plan of Care - Brent Lomas LCSW - 06/25/2024 8:55 AM EST Images from the original note were not included. Psychiatric Bed Placement Team Note: This psychiatric health safety coordinator is currently working on locating an inpatient psychiatric bed for this patient, Celso Blanton [id number] . This patient has been deemed medically stable for discharge to a psychiatric unit by the medical team. Notable medical conditions for the accepting facility to note: Referrals have been sent to the following inpatient psychiatric units: Routing History Date/Time From To Method 06/25/2024 8:55 AM Brent Lomas, [facility] Fax 06/25/2024 8:55 AM Brent Lomas, [facility] Fax 06/25/2024 8:55 AM Brent Lomas, [facility] [place] Fax 06/25/2024 8:55 AM Brent Lomas, [facility] medicine Fax . There are currently are no bed offers If there are any changes to patients medical stability please alert this psychiatric health safety coordinator. Will continue to follow for psychiatric bed placement. * Plan of Care - Brent Lomas LCSW - 06/25/2024 8:10 AM EST Copied and revised for psych placement only. Celso Blanton #[id number] (CSN:[id number]) (:1985 39 y.o. M) (Adm: 06/22/24) [facility] [id number] A Preferred Name Legal Name if different Gender Identity Legal Sex M Pronouns Sex Assigned at Patient Demographics Address [address] [address] (Home) *Preferred* Susan Status No [2] History : No Patient Ethnic Group & Race Race Black or Ethnic Group Not or Patient Ethnicity [5] Active Insurance as of 06/22/2024 Primary Coverage Payor Plan Insurance Group Employer/Plan Group [facility] MEDICAID [facility] [id number] Payor Address Payor Phone Number Payor Fax Number Effective Dates [address] 08/19/2022 - None Entered [facility] [phone] Subscriber Name Subscriber Date Member ID CELSO BLANTON 1985 [id number] PCP and Center Primary Care Provider Has No Pcp Or Ref Patient [facility] Emergency Contacts None on File Other Contacts None on File * Assessment & Plan Note - Zlueyma Maldonado MD - 06/24/2024 3:54 PM ESTAssociated Problem(s): T2DM (type 2 diabetes mellitus) ([facility]) History of T2DM, managed with metformin 1000 [...] CPAP. * Assessment & Plan Note - Zuleyma [...] fluffs between toes and loose Kerlix wraps -public speaking instructor consulted * Assessment & Plan Note - [...] drug rehab program before being discharged to [facility], more recently he is homeless and [...] disorder (alcohol, cocaine, opioids), who presented to [facility] ED on 06/22/2024 after being found down. [...] disorder (alcohol, cocaine, opioids), who presented to [facility] ED on 06/22/2024 after being found down. [...] drug rehab program before being discharged to [facility], more recently he is homeless and [...] Patient Assessment: Patient is homeless, staying in assisted. On section 12 for SI statements. Waiting for [facility]. 1;1 obs for safety Supports, HCP, Designated Caregiver, Guardian: No contacts or HCP in chart. Initial Discharge Planning: ? TBD, psych eval pending. If clears Psych likely DC back to Intermediate Choice list (with star ratings) provided / discussed, if indicated (Y or NA): NA * Consult to H&P - Darlyn Farfan MD - 06/22/2024 4:56 PM EST Consult Note Plastic & Reconstructive Surgery Consulting Attending: Emiliano Salcedo MD Requesting Provider: Attending Provider: Mack Cortez MD [phone] Date Requested: 06/22/24 Subjective Chief Complaint: BL [...] Recent Results (from the past 24 hours) [facility] - Comprehensive Metabolic Panel Collection Time: 06/22/24 [...] to obtain the completed interpretation. Workstation ID: [id number] C-Spine WO ContrastResult Date: 06/22/2024 acute fracture or traumatic malalignment of the cervical spine. If this radiology report contains a blank impression section, itis an incomplete radiology report. Please contact the interpreting radiologist or applicable radiology division as soon as possible to obtain the completed interpretation. Workstation ID: [id number] Up-to-date CT equipment and radiation dose reduction techniques were employed. CTDIvol: 26.2 - 70.4 mGy. DLP: 2128 mGy-cm. The following accession numbers are related to this dose report [id number]: [id number] Head WO ContrastResult Date: 06/22/2024 acute intracranial hemorrhage, large territorial infarction, or mass effect. If this radiology report contains a blank impression section, it is an incomplete radiology report. Please contact the interpreting radiologist or applicable radiology division as soon as possible to obtain the completed interpretation. Workstation ID: [id number] Up-to-date CT equipment and radiation dose reduction techniques were employed. CTDIvol: 26.2 - 70.4 mGy. DLP: 2128 mGy-cm. The following accession numbers are related to this dose report [id number]: [id number] Chest Portable 1 ViewResult Date: 06/22/2024No acute pulmonary process or acute displaced fracture. If this radiology report contains a blank impression section, it is an incomplete radiology report. Please contact the interpreting radiologist or applicable radiology division as soon as possible to obtain the completed interpretation. Workstation ID: [id number] I have personally reviewed the patient's relevant [...] by me in the absence of a title specialist. Rhythm is normal sinus. Rate of 86. [...] Waldrop MD Celso Blanton : 1985 CSN: [id number] Cosigned by Mack Cortez MD at 06/25/2024 [...] by me. Celso Blanton : 1985 CSN: [id number] * Emergency Department Information Exchange - [facility] - [place] Interface - 06/22/2024 7:47 AM EST [facility] NOTIFICATION 06/22/2024 07:39 CELSO BLANTON : 1985 [facility]'s patient encounter information: MRN:?[id number] Account Number:?[id number] Billing Account Number:?[id number] Criteria Met High-Utilizers Standard: 6 ED visits within 6 months Security and Safety No Security Events were found. ED Care Guidelines There are currently no ED Care Guidelines for this patient. Please check your facility's medical records system. Prescription Drug Data No Prescription Drug Data was found. E.D. Visit Count (12 mo.) Facility Visits [facility] 19 [facility] 3 [facility] 1 Total 23 Note: Visits indicate total known visits. Recent Emergency Department Visit Summary Showing 10 most recent visits out of 23 in the past 12 months Date Facility City State Type Diagnoses or Chief Complaint Jun 22, 2024 [facility]. Cocaine abuse, uncomplicated 99. Suicidal ideations [facility] 1. Dizziness and giddiness 1. Cocaine use, unspecified, uncomplicated 2. Type 2 diabetes mellitus without complications 3. Paranoid schizophrenia 4. Unspecified fall, initial encounter [facility] 1. Paranoid schizophrenia 3. Encounter for screening for COVID-19 4. Type 2 diabetes mellitus without complications 99. Auditory hallucinations 99. Suicidal ideations Feb [facility] 1. Schizophrenia, unspecified 2. Type 2 diabetes mellitus without complications 3. Essential (primary) hypertension 4. Gastro-esophageal reflux disease without esophagitis 5. termite control servicer (current) use of oral hypoglycemic drugs 6. Other care home (current) drug therapy 7. Encounter for screening for COVID-19 99. Suicidal ideations 99. Poisoning by heroin, accidental (unintentional), initial encounter [facility] 1. Pain, unspecified 2. Procedure and treatment not carried out due to patient leaving prior to being seen by health care provider Jan 23, 2024 [facility]: [facility]CH [facility] Complaint: ETOH, ?ALTERCATION Jan [facility] 1. Paranoid schizophrenia 1. Poisoning by [...] Type 2 diabetes mellitus without complications 9. group home (current) use of oral hypoglycemic drugs Oct 25, 2023 [facility] Emergency 1. Auditory hallucinations 1. Paranoid schizophrenia 2. 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 Encounter for screening for COVID-19 4. Encounter for observation for suspected exposure to other biological agents ruled out 5. Other terminal worker (current) drug therapy 99. Cocaine abuse, uncomplicated 99. Homicidal ideations 99. Suicidal ideations 99. Patient's other noncompliance with medication regimen for other reason Recent Inpatient Visit Summary Date [facility] Type Diagnoses or Chief Complaint Aug 22, 2023 [facility] Inpatient 99. Unspecified open wound, right [...] Care Team No Care Team was found. [employer] This patient has registered at the [facility] Emergency Department For more information visit: [email or web address] PLEASE NOTE: 1. Any care recommendations and other clinical information are provided as guidelines or for historical purposes only, and providers should exercise their own clinical judgment when providing care. 2. You may only use this information for purposes of treatment, payment or health care operations activities, and subject to the limitations of applicable [employer] Policies. 3. You should consult directly with the organization that provided a care guideline or other clinical history with any questions about additional information or accuracy or completeness of information provided. ? 2024 [employer] - [employer] documented in this encounter Plan of Treatment Scheduled Orders Name Type Priority Associated Diagnoses Orde r Schedule Vitamin B12 Lab Timed 06/23/2024 un til discontinued, 1 completed Folate Lab Timed 06/23/2024 unt il discontinued, 1 completed documented as of this encounter Procedures * Due to [place] state law, [...] in this encounter Results * Due to [place] state law, this organization might not be sharing negative HIV tests. * (ABNORMAL) Creatine Kinase (06/25/2024 7:41 PM EST) CK 1,115(H) 49 - 348 U/L 06/25/2024 8:35 PM EST [facility] Blood Structure of peripheral vein / Unknown Venipuncture / Unknown 06/25/2024 7:41 PM EST 06/25/2024 8:05 PM EST us Quintin Ng MD LAB BLOOD ORDERABLES Final Res ult Performing Organization Address [facility] Co de Phone Number [employer] [facility] CLINICAL PATHOLOGY LABORATORY [address] [place] [address], [place] * (ABNORMAL) POCT Glucose, interfaced (06/25/2024 5:00 PM EST) Glucose, POCT 312(H) 70 - 99 mg/dL 06/25/2024 5:01 PM EST [facility] Comment: The sand car worker has not determined the efficacy of this test in Critically ill patients. ??[facility] defines Critically ill patients for the [...] DEVICE Fin al Result Performing Organization Address [facility] Co de Phone Number [facility] [address] [place] [address], [place] * (ABNORMAL) POCT Glucose, interfaced (06/25/2024 12:59 PM EST) Glucose, POCT 156(H) 70 - 99 mg/dL 06/25/2024 1:01 PM EST [facility] Comment: The sand car worker has not determined the efficacy of this test in Critically ill patients. ??[facility] defines Critically ill patients for the [...] DEVICE Fin al Result Performing Organization Address [facility] de Phone Number [facility] [address] [place] [address], * (ABNORMAL) POCT Glucose, interfaced (06/25/2024 8:27 AM EST) [facility] Signature Glucose, POCT 270(H) 70 - 99 mg/dL 06/25/2024 8:29 AM EST [facility] Comment: The sand car worker has not determined the efficacy of this test in Critically ill patients. ??[facility] defines Critically ill patients for the [...] DEVICE Fin al Result Performing Organization Address [facility] Co de Phone Number [facility] [address] [place] [address], [place] * (ABNORMAL) Creatine Kinase (06/25/2024 6:41 AM EST) CK 1,655(H) 49 - 348 U/L 06/25/2024 8:07 AM EST [facility] CLINICAL PATHOLOGY LABORATORY Blood Structure of peripheral vein / Unknown Venipuncture / Unknown 06/25/2024 6:41 AM EST 06/25/2024 7:29 AM EST Quintin Ng MD LAB BLOOD ORDERABLES Final Res ult Performing Organization Address [facility] Co de Phone Number [employer] CLINICAL PATHOLOGY LABORATORY [address] [place] [address], [place] * Phosphorus (06/25/2024 6:41 AM EST) Phosphorus 3.0 2.5 - 4.5 mg/dL 06/25/2024 8:07 AM EST [facility] CL[facility] PATHOLOG[facility] LAB[facility]ATORY Blood Structure of peripheral vein / Unknown Venipuncture / Unknown 06/25/2024 6:41 AM EST 06/25/2024 7:29 AM EST Alex Hines MD LAB BLOOD ORDERABLES Fin al Result Performing Organization Address [facility]/ZIP Co de Phone Number [facility] CLINICAL PATHOLOGY LABORATORY [address] [place] [address], [place] * Magnesium (06/25/2024 6:41 AM EST) MG 1.8 1.6 - 2.4 mg/dL 06/25/2024 8:07 AM EST [facility] CLINICAL PATHOLOGY LABORATORY Blood Structure of peripheral vein / Unknown Venipuncture / Unknown 06/25/2024 6:41 AM EST 06/25/2024 7:29 AM EST Alex Hines MD LAB BLOOD ORDERABLES Fin al Result [email or web address] PATH[facility] LABORATORY [address] [place] [address], * (ABNORMAL) Basic metabolic panel (06/25/2024 6:41 AM EST) NA 140 135 - 145 mmol/L 06/25/2024 8:07 AM EST [email or web address] CL[facility]ICAL PATHOLOGY LABORATORY K 4.1 3.5 - 5.3 mmol/L 06/25/2024 8:07 AM EST [facility] CL[facility]ICAL PATHOLOGY LABORATORY Cl 103 98 - 107 mmol/L 06/25/2024 8:07 AM EST [facility]SMEC[facility]YouRIM[facility] [employer] - [email or web address] CLINICAL PATHOLOGY LABORATORY CO2 26 22 - 32 mmol/L 06/25/2024 8:07 AM EST [facility] CL[facility]ICAL PATHOLOGY LABORATORY BUN 11 7 - 23 mg/dL 06/25/2024 8:07 AM EST [email or web address] CL[facility]ICAL PATHOLOGY LABORATORY Creatinine 0.97 0.60 - 1.30 mg/dL 06/25/2024 8:07 AM EST [facility] [email or web address] CLINICAL PATHOLOGY LABORATORY Glucose 210(H) 65 - 99 mg/dL 06/25/2024 8:07 AM EST [email or web address] CLINICAL PATHOLOGY LABORATORY Calcium 9.2 8.6 - 10.5 mg/dL 06/25/2024 8:07 AM EST [facility] [employer] - [email or web address] CLINICAL PATHOLOGY LABORATORY Anion Gap 11 5 - 15 06/25/2024 8:07 AM EST ASSMedicalisRIMAP[facility] - [email or web address] CLINICAL PATHOLOGY LABORATORY eGFR >90 >=60 mL/min/1. 73m2 06/25/2024 8:07 AM EST [employer]ASSMECashYouRIMAPPER [employer] - [email or web address] CLINICAL PATHOLOGY LABORATORY Comment:The estimated glomer ular [...] MD LAB BLOOD ORDERABLES Fin al Result [facility] CL[facility]ICAL PATHOLOGY LABORATORY [address] [place] [address], * (ABNORMAL) CBC Auto Differential (06/25/2024 6:41 [...] <0.01 <0.01 10*3/uL 06/25/2024 7:36 AM EST [facility] CLINICAL PATHOLOGY LABORATORY Blood Structure of peripheral vein / Unknown Venipuncture / Unknown 06/25/2024 6:41 AM EST 06/25/2024 7:29 AM EST Alex Hines MD LAB BLOOD ORDERABLES Fin al Result Performing Organization Address City/[facility]/ZIP Co de Phone Number [facility] CLINICAL PATHOLOGY LABORATORY [address] [place] [address], [place] * (ABNORMAL) POCT Glucose, interfaced (06/24/2024 10:09 PM EST) Glucose, POCT 115(H) 70 - 99 mg/dL 06/24/2024 10:10 PM EST [facility] Comment: The sand car worker has not determined the efficacy of this test in Critically ill patients. ??[facility] defines Critically ill patients for the [...] DEVICE Fin al Result Performing Organization Address City/[facility]/ZIP Co de Phone Number [facility] [address] [place] [address], [place] * (ABNORMAL) Creatine Kinase (06/24/2024 7:45 PM EST) CK 2,447(H) 49 - 348 U/L 06/24/2024 8:43 PM EST [facility] CLINICAL PATHOLOGY LABORATORY Blood Structure of peripheral vein / Unknown Venipuncture / Unknown 06/24/2024 7:45 PM EST 06/24/2024 7:58 PM EST us Quintin Ng MD LAB BLOOD ORDERABLES Final Res ult Performing Organization Address City/[facility]/ZIP Co de Phone Number [facility] CLINICAL PATHOLOGY LABORATORY [address] [place] [address], [place] * (ABNORMAL) POCT Glucose, interfaced (06/24/2024 6:46 PM EST) Glucose, POCT 341(H) 70 - 99 mg/dL 06/24/2024 6:47 PM EST [facility] Comment: The sand car worker has not determined the efficacy of this test in Critically ill patients. ??[facility] defines Critically ill patients for the [...] DEVICE Fin al Result Performing Organization Address City/[facility]/ZIP Co de Phone Number [facility] [address] [place] [address], [place] * (ABNORMAL) POCT Glucose, interfaced (06/24/2024 12:44 PM EST) Glucose, POCT 243(H) 70 - 99 mg/dL 06/24/2024 12:45 PM EST [facility] Comment: The sand car worker has not determined the efficacy of this test in Critically ill patients. ??[facility] defines Critically ill patients for the [...] DEVICE Fin al Result Performing Organization Address City/State/[facility] Co de Phone Number [facility] [address] [place] [address], * (ABNORMAL) POCT Glucose, interfaced (06/24/2024 7:16 AM EST) [facility] Glucose, POCT 228(H) 70 - 99 mg/dL 06/24/2024 7:17 AM EST [facility] Comment: The sand car worker has not determined the efficacy of this test in Critically ill patients. ??[facility] defines Critically ill patients for the [...] DEVICE F inal Result Performing Organization Address City/[facility]/ZIP Co de Phone Number [facility] [address] [place] [address], [place] * (ABNORMAL) Creatine Kinase (06/24/2024 6:07 AM EST) CK 3,647(H) 49 - 348 U/L 06/24/2024 7:34 AM EST [facility] CLINICAL PATHOLOGY LABORAT[facility] Blood Structure of peripheral vein / Unknown Venipuncture / Unknown 06/24/2024 6:07 AM EST 06/24/2024 6:40 AM EST us Quintin Ng MD LAB BLOOD ORDERABLES Final Res ult Performing Organization Address [facility] Co de Phone Number [facility] CLINICAL PATHOLOGY LABORATORY [address] [place] [address], [place] * (ABNORMAL) Phosphorus (06/24/2024 6:07 AM EST) Phosphorus 2.2(L) 2.5 - 4.5 mg/dL 06/24/2024 7:29 AM EST [facility] Blood Structure of peripheral vein / Unknown Venipuncture / Unknown 06/24/2024 6:07 AM EST 06/24/2024 6:40 AM EST Alex Hines MD LAB BLOOD ORDERABLES Fin al Result Performing Organization Address City/[facility]/ZIP Co de Phone Number [facility] CLINICAL PATHOLOGY LABORATORY [address] [place] [address], [place] * Magnesium (06/24/2024 6:07 AM EST) MG 2.1 1.6 - 2.4 mg/dL 06/24/2024 7:29 AM EST [facility] CLINICAL PATHOLOGY LABORAT[facility] Blood Structure of peripheral vein / Unknown Venipuncture / Unknown 06/24/2024 6:07 AM EST 06/24/2024 6:40 AM EST us Alex Hines MD LAB BLOOD ORDERABLES Fin al Result [facility] CLINICAL PATHOLOGY LABORATORY [address] [place] [address], * (ABNORMAL) Basic metabolic panel (06/24/2024 6:07 AM EST) NA 139 135 - 145 mmol/L 06/24/2024 7:29 AM EST [employer] [email or web address] CLINICAL PATHOLOGY LABORATORY K 4.0 3.5 - 5.3 mmol/L 06/24/2024 7:29 AM EST [employer] [facility] - [email or web address] CLINICAL PATHOLOGY LABORATORY Cl 104 98 - 107 mmol/L 06/24/2024 7:29 AM EST [email or web address] CLINICAL PATHOLOGY LABORATORY CO2 27 22 - 32 mmol/L 06/24/2024 7:29 AM EST [facility] CL[facility]ICAL PATHOLOGY LABORATORY BUN 14 7 - 23 mg/dL 06/24/2024 7:29 AM EST [facility] PATHOLOG[facility] LAB[facility] Creatinine 1.00 0.60 - 1.30 mg/dL 06/24/2024 7:29 AM EST [facility] LAB[facility] Glucose 234(H) 65 - 99 mg/dL 06/24/2024 7:29 AM EST [email or web address] CLINICAL PATHOLOGY LABORATORY Calcium 8.7 8.6 - 10.5 mg/dL 06/24/2024 7:29 AM EST [facility] CL[facility] PATHOLOGY LABORATORY Anion Gap 8 5 - 15 06/24/2024 7:29 AM EST [email or web address] CLINICAL PATHOLOGY LABORATORY eGFR >90 >=60 mL/min/1. 73m2 06/24/2024 7:29 AM EST [email or web address] CL[facility]ICAL PATHOLOGY LABORATORY Comment:The estimated glomer ular [...] MD LAB BLOOD ORDERABLES Fin al Result [employer] [email or web address] CLINICAL PATHOLOGY LABORATORY [address] [place] [address], * (ABNORMAL) CBC Auto Differential (06/24/2024 6:07 AM EST) WBC 6.8 3.8 - 10.8 10*3/uL 06/24/2024 6:46 AM EST [facility] RBC 3.79(L) 4.20 - 5.80 10*6/uL 06/24/2024 6:46 AM EST [facility] Hemoglobin 9.3(L) 13.2 - 17.1 g/dL 06/24/2024 6:46 AM EST [facility] LAB[facility] Hematocrit 28.7(L) 38.5 - 50.0 % 06/24/2024 6:46 AM EST [facility] MCV 75.7(L) 80.0 - 100.0 fL 06/24/2024 6:46 AM EST [facility] MCH 24.5(L) 27.0 - 33.0 pg 06/24/2024 6:46 AM EST [facility] MCHC 32.4 32.0 - 36.0 g/dL 06/24/2024 6:46 AM EST [employer] CL[facility]ICAL PATHOLOGY LABORATORY RDW 15.3(H) [...] 0.20 10*3/uL 06/24/2024 6:46 AM EST [facility] [employer] CLINICAL PATHOLOGY LABORATORY nRBC % 0.0 /100 WBCs 06/24/2024 6:46 AM EST [facility] [employer] CLINICAL PATHOLOGY LABORATORY nRBC # <0.01 <0.01 10*3/uL 06/24/2024 6:46 AM EST [facility]YouK[facility] [employer] [facility] PATHOLOGY LABORATORY Blood Structure of peripheral vein / Unknown Venipuncture / Unknown 06/24/2024 6:07 AM EST 06/24/2024 6:40 AM EST us Alex Hines MD LAB BLOOD ORDERABLES Fin al Result Performing Organization Address [facility]/ZIP Co de Phone Number [facility] [employer] CLINICAL PATHOLOGY LABORATORY [address] [place] [address], * (ABNORMAL) Creatine Kinase (06/23/2024 8:21 PM EST) CK 5,128(H) 49 - 348 U/L 06/23/2024 10:25 PM EST [facility]DA[facility] [employer] [facility] PATHOLOGY LABORATORY Blood Structure of peripheral vein / Unknown Venipuncture / Unknown 06/23/2024 8:21 PM EST 06/23/2024 9:29 PM EST us Quintin Ng MD LAB BLOOD ORDERABLES Final Res ult Performing Organization Address [facility]/ZIP Co de Phone Number [facility] [employer] CL[facility] PATH[facility] LABORATORY [address] [place] [address], [place] * (ABNORMAL) POCT Glucose, interfaced (06/23/2024 4:57 PM EST) Glucose, POCT 314(H) 70 - 99 mg/dL 06/23/2024 4:57 PM EST [facility] Comment: The sand car worker has not determined the efficacy of this test in Critically ill patients. ??[facility] defines Critically ill patients for the [...] DEVICE F inal Result Performing Organization Address [facility] Co de Phone Number [facility] [address] [place] [address], [place] * UA [place] Top (06/23/2024 4:20 PM EST) [employer] Hold for add-ons. 06/23/2024 9:05 PM EST [facility] CLINICAL PATHOLOGY LABORATORY Comment:Auto resulted. Urine Urine specimen collection, clean catch / Unknown 06/23/2024 4:20 PM EST 06/23/2024 4:20 PM EST Quintin Ng MD LAB BLOOD ORDERABLES Final Res ult Performing Organization Address [facility] Co de Phone Number [facility] CLINICAL PATHOLOGY LABORATORY [address] [place] [address], [place] * Propoxyphene Screen, Urine (06/23/2024 4:11 PM EST) Propoxyphene Screen, Urine NEGATIVE <300 ng/mL 06/24/2024 5:13 AM EST [employer] Comment: See Note 2 Note 1 This drug testing is for medical treatment only. ?? Analysis was performed as non-forensic testing and these results should be used only by healthcare providers to render diagnosis or treatment, or to monitor progress of medical conditions. For assistance with interpreting these drug results, please contact a [employer] Toxicology Specialist: [phone] ( ), M-F, 8am-6pm EST. Note [...] interpreting these drug results, please contact a [employer] Toxicology Specialist: [phone] ( ), M-F, 8am-6pm EST. Urine Voided urine specimen / Unknown Non-Blood Collection / Unknown 06/23/2024 4:11 PM EST 06/23/2024 4:18 PM EST Narrative KILTR JOSSELINE - 06/24/2024 5:13 AM EST [facility] Received Date: Quintin Ng MD LAB URINE ORDERABLES Final Res ult Performing Organization Address City/[facility]/ZIP Co de Phone Number STEVE SCHENEVUS [address] [facility] [address]rd [address], [place] [address], [place] [phone] [employer] [facility] [address] [facility] [address] [facility], [place] [address], [place] [phone] * Methadone Screen w/Confirmation, Urine (06/23/2024 4:11 PM EST) [facility] Methadone Metabolite Screen, Urine NEGATIVE <100 ng/mL 06/24/2024 5:13 AM EST [employer] [facility] Comment: See Note 1 Urine Voided urine specimen / Unknown Non-Blood Collection / Unknown 06/23/2024 4:11 PM EST 06/23/2024 4:18 PM EST Narrative KILTR SERGIOHIPOLITO - 06/24/2024 5:13 AM EST [facility] Received Date: us Quintin Ng MD LAB URINE ORDERABLES Final Res ult [facility] [address] [facility] [address] [facility], [place] [address], [place] [phone] [employer] [address], [place] [address], [place] [phone] * Benzodiazepine Qualitative Screen, Urine (06/23/2024 4:11 PM EST) Benzodiazepine Screen, Urine Negative Negative 06/23/2024 5:19 PM EST [facility] CLIN[facility] PATHOLOGY LABORAT[facility] Comment: Detection limit of 200 ng/mL of Nordiazepam. Drug results are to be used only for medical purposes. ??Unconfirmed screening results must not be used for non-medical purposes. Urine Voided urine specimen / Unknown Non-Blood Collection / Unknown 06/23/2024 4:11 PM EST 06/23/2024 4:18 PM EST Quintin Ng MD LAB URINE ORDERABLES Final Res ult Performing Organization Address [facility] de Phone Number [facility] CLINICAL PATHOLOGY LABORATORY [address] [place] [address], [place] * Barbiturate Screen, Urine (06/23/2024 4:11 PM EST) Barbiturate Screen, Urine Negative Negative 06/23/2024 5:19 PM EST [facility] CLIN[facility] PATHOLOG[facility] LABORAT[facility] Comment: Detection limit of [...] ORDERABLES Final Res ult Performing Organization Address [facility] Co de Phone Number [facility] [employer] CLINICAL PATHOLOGY LABORATORY [address] [place] [address], [place] * Phencyclidine (PCP) Screen, Urine (06/23/2024 4:11 PM EST) Phencyclidine Screen, Urine NEGATIVE <25 ng/mL 06/24/2024 5:13 AM EST [employer] [facility] Comment: See Note 2 Urine Voided urine specimen / Unknown Non-Blood Collection / Unknown 06/23/2024 4:11 PM EST 06/23/2024 4:18 PM EST Narrative [facility] - 06/24/2024 5:13 AM EST [facility] Received Date: Quintin Ng MD LAB URINE ORDERABLES Final Res ult Performing Organization Address City/[facility]/ZIP Co de Phone Number [facility] [address] [facility] [address], [place] [address], [place] [phone] [employer] [facility] [address], [place] [address], [place] [phone] * Marijuana Qualitative Screen, Urine (06/23/2024 4:11 PM EST) Marijuana Screen, Urine Negative Negative 06/23/2024 5:19 PM EST [facility] CL[facility] PATHOLOG[facility] LAB[facility] Comment: Detection limit of 50 ng/mL of 56-Dwk-bqstm-8-UGC-7-carboxylic acid. Drug results are to be used only for medical purposes. ??Unconfirmed screening results must not be used for non-medical purposes. Urine Voided urine specimen / Unknown Non-Blood Collection / Unknown 06/23/2024 4:11 PM EST 06/23/2024 4:18 PM EST Quintin Ng MD LAB URINE ORDERABLES Final Res ult [facility] CLINICAL PATHOLOGY LABORATORY [address] [place] [address], [place] * Morphine and Codeine Confirmation, Urine (06/23/2024 4:11 PM EST) Codeine, Urine NEGATIVE <50 ng/mL 06/25/2024 9:46 AM EST [employer] [facility] Comment: See Note 1 Hydrocodone, Urine NEGATIVE <50 ng/mL 06/25/2024 9:46 AM EST [employer] [facility] Comment: See Note 1 Hydromorphone, Urine NEGATIVE <50 ng/mL 06/25/2024 9:46 AM EST [employer] [facility] Comment: See Note 1 Morphine, Urine NEGATIVE <50 ng/mL 9:46 AM EST [employer] [facility] Comment: See Note 1 Norhydrocodone, Urine NEGATIVE <50 ng/mL 06/25/2024 9:46 AM EST [employer] [facility] Comment: See Note 1 See Note 2 Note 1 This test was developed and its analytical performance characteristics have been determined by [employer]. It has not been cleared or approved [...] interpreting these drug results, please contact a [employer] Toxicology Specialist: [phone] ( ), M-F, 8am-6pm EST. Urine Voided urine specimen / Unknown Non-Blood Collection / Unknown 06/23/2024 4:11 PM EST 06/23/2024 4:18 PM EST [facility] - 06/25/2024 9:46 AM EST [facility] Received Date: Quintin Ng MD LAB URINE ORDERABLES Final Res ult [facility] [address] [facility] [address]rd Floor, [place] [address], [place] [phone] [employer] [facility] [address] [facility] 3rd Floor, [place] [address], [place] [phone] * (ABNORMAL) Cocaine Qualitative, Urine (06/23/2024 4:11 PM EST) [facility] Cocaine Metabolite Screen, Urine Presumptive Positive(A) Negative 06/23/2024 5:19 PM EST [facility] Comment: Detection limit of 300 ng/mL of Benzoylecgonine. Drug results are to be used only for medical purposes. ??Unconfirmed screening results must not be used for non-medical purposes. Urine Voided urine specimen / Unknown Non-Blood Collection / Unknown 06/23/2024 4:11 PM EST 06/23/2024 4:18 PM EST Quintin Ng MD LAB URINE ORDERABLES Final Res ult Performing Organization Address [facility] de Phone Number [facility] CLINICAL PATHOLOGY LABORATORY [address] [place] [address], [place] * Amphetamine Qualitative, Urine (06/23/2024 4:11 PM EST) [facility] Amphetamine Screen, Urine Negative Negative 06/23/2024 5:19 PM EST [facility] Comment: Detection limit of 1000 ng/mL of d-Methamphetamine. Drug results are to be used only for medical purposes. ??Unconfirmed screening results must not be used for non-medical purposes. Urine Voided urine specimen / Unknown Non-Blood Collection / Unknown 06/23/2024 4:11 PM EST 06/23/2024 4:18 PM EST Quintin Ng MD LAB URINE ORDERABLES Final Res ult Performing Organization Address [facility] Co de Phone Number [facility] [address] [place] [address], [place] * (ABNORMAL) POCT Glucose, interfaced (06/23/2024 12:22 PM EST) [facility] Glucose, POCT 281(H) 70 - 99 mg/dL 06/23/2024 12:24 PM EST [facility] Comment: The sand car worker has not determined the efficacy of this test in Critically ill patients. ??[facility] defines Critically ill patients for the [...] DEVICE F inal Result Performing Organization Address [facility] de Phone Number [facility] [address] [place] [address], * (ABNORMAL) POCT Glucose, interfaced (06/23/2024 7:50 AM EST) [facility] Signature Glucose, POCT 276(H) 70 - 99 mg/dL 06/23/2024 7:51 AM EST [facility] Comment: The sand car worker has not determined the efficacy of this test in Critically ill patients. ??[facility] defines Critically ill patients for the [...] DEVICE F inal Result Performing Organization Address [facility]/State/ZIP Co de Phone Number [facility] [address] [place] [address], [place] * Folate (06/23/2024 7:46 AM EST) Folate 15.0 4.8 - 24.2 ng/mL 06/23/2024 2:56 PM EST [facility] Blood Structure of peripheral vein / Unknown Venipuncture / Unknown 06/23/2024 7:46 AM EST 06/23/2024 7:51 AM EST Quintin Ng MD LAB BLOOD ORDERABLES Final Res ult [facility] [address] [place] [address], [place] * Vitamin B12 (06/23/2024 7:46 AM EST) Vitamin B12 584 232 - 1,245 pg/mL 06/23/2024 2:56 PM EST [facility] Blood Structure of peripheral vein / Unknown Venipuncture / Unknown 06/23/2024 7:46 AM EST 06/23/2024 7:51 AM EST Quintin Ng MD LAB BLOOD ORDERABLES Final Res ult [facility] [address] [place] [address], [place] * TSH Reflex Free T4 (06/23/2024 7:46 AM EST) TSH 0.337 0.280 - 3.890 uIU/mL 06/23/2024 2:56 PM EST [facility] Blood Structure of peripheral vein / Unknown Venipuncture / Unknown 06/23/2024 7:46 AM EST 06/23/2024 7:51 AM EST Quintin Ng MD LAB BLOOD ORDERABLES Final Res ult Performing Organization Address [facility] Co de Phone Number [facility] [address] [place] [address], * (ABNORMAL) Creatine Kinase (06/23/2024 7:46 AM EST) CK 7,402(H) 49 - 348 U/L 06/23/2024 10:11 AM EST [facility] Blood Structure of peripheral vein / Unknown Venipuncture / Unknown 06/23/2024 7:46 AM EST 06/23/2024 7:51 AM EST Alex Hines MD LAB BLOOD ORDERABLES Fin al Result Performing Organization Address [facility] de Phone Number [facility] [address] [place] [address], [place] * (ABNORMAL) Phosphorus (06/23/2024 7:46 AM EST) Phosphorus 1.7(L) 2.5 - 4.5 mg/dL 06/23/2024 10:05 AM EST [facility] Blood Structure of peripheral vein / Unknown Venipuncture / Unknown 06/23/2024 7:46 AM EST 06/23/2024 7:51 AM EST Alex Hines MD LAB BLOOD ORDERABLES Fin al Result Performing Organization Address [facility] Co de Phone Number [facility] [address] [place] [address], [place] * Magnesium (06/23/2024 7:46 AM EST) MG 2.2 1.6 - 2.4 mg/dL 06/23/2024 10:05 AM EST [facility] Blood Structure of peripheral vein / Unknown Venipuncture / Unknown 06/23/2024 7:46 AM EST 06/23/2024 7:51 AM EST us Alex Hines MD LAB BLOOD ORDERABLES Fin al Result [facility] [address] [place] [address], * (ABNORMAL) Basic metabolic panel (06/23/2024 7:46 AM EST) NA 138 135 - 145 mmol/L 06/23/2024 10:05 AM EST [facility] K 4.4 3.5 - 5.3 mmol/L 06/23/2024 10:05 AM EST [facility] Cl 102 98 - 107 mmol/L 06/23/2024 10:05 AM EST [facility] CO2 26 22 - 32 mmol/L 06/23/2024 10:05 AM EST [facility] BUN 21 7 - 23 mg/dL 06/23/2024 10:05 AM EST [facility] Creatinine 1.06 0.60 - 1.30 mg/dL 06/23/2024 10:05 AM EST [facility] Glucose 259(H) 65 - 99 mg/dL 06/23/2024 10:05 AM EST [facility] Calcium 8.8 8.6 - 10.5 mg/dL 06/23/2024 10:05 AM EST [facility] Anion Gap 10 5 - 15 06/23/2024 10:05 AM EST [facility] eGFR >90 >=60 mL/min/1. 73m2 06/23/2024 10:05 AM EST [facility] Comment:The estimated glomer ular [...] ORDERABLES Fin al Result Performing Organization Address [facility]/ZIP Co de Phone Number [facility] [address] [place] [address], * (ABNORMAL) Hemoglobin A1c (06/23/2024 7:46 AM EST) Hemoglobin A1C 7.9(H) <5.7 % of total Hgb 06/23/2024 12:45 PM EST [employer] Comment: For someone without known diabetes, a [...] (MG/DL) 180 mg/dL 06/23/2024 12:45 PM EST [employer] eAG (MMOL/L) 10.0 mmol/L 06/23/2024 12:45 PM EST [employer] Blood Structure of peripheral vein / Unknown Venipuncture / Unknown 06/23/2024 7:46 AM EST 06/23/2024 7:46 AM EST Narrative [facility] 12:45 PM EST [facility] Received Date: Alex Hines MD LAB BLOOD ORDERABLES Fin al Result [facility] [address] [facility] [address], [place] [address], [place] [phone] [employer] [facility] [address] [facility] 3rd Floor, [place] [address], [place] [phone] * (ABNORMAL) CBC Auto Differential (06/23/2024 7:45 [...] <0.01 <0.01 10*3/uL 06/23/2024 9:36 AM EST [employer] Blood Structure of peripheral vein / Unknown Venipuncture / Unknown 06/23/2024 7:45 AM EST 06/23/2024 7:52 AM EST Alex Hines MD LAB BLOOD ORDERABLES Fin al Result [facility] [address] [place] [address], * Hepatitis C Antibody w/Reflex to HCV RNA, Quantitative PCR (06/23/2024 7:44 AM EST) Hepatitis C Antibody NON-REACT ZAINA NON-REACT ZAINA 06/23/2024 9:10 PM EST [employer] [facility] Comment: HCV antibody was non-reactive. There is no laboratory evidence of HCV infection. In most cases, no further action is required. However, if recent HCV exposure is suspected, a test for HCV RNA (test code 69233) is suggested. For additional information please refer to http://education.[employer]/faq/ORO12l5 (This link is being provided for informational/ educational purposes only.) Blood Structure of peripheral vein / Unknown Venipuncture / Unknown 06/23/2024 7:44 AM EST 06/23/2024 7:45 AM EST Narrative [facility] - 06/23/2024 9:10 PM EST [facility] Received Date: Alex Hines MD LAB BLOOD ORDERABLES Fin al Result Performing Organization Address City/[facility]/ZIP Co de Phone Number [facility] [address] [facility] [address] [facility], [place] [address], [place] [phone] [employer] [facility] [address], [place] [address], [place] [phone] * (ABNORMAL) Creatine Kinase (06/23/2024 12:13 AM EST) CK 9,504(H) 49 - 348 U/L 06/23/2024 2:13 AM EST [facility] Blood Structure of peripheral vein / Unknown Venipuncture / Unknown 06/23/2024 12:13 AM EST 06/23/2024 1:22 AM EST Alex Hines MD LAB BLOOD ORDERABLES Fin al Result Performing Organization Address [facility]/ZIP Co de Phone Number [facility] [address] [place] [address], [place] * (ABNORMAL) POCT Glucose, interfaced (06/22/2024 10:19 PM EST) Glucose, POCT 288(H) 70 - 99 mg/dL 06/22/2024 10:20 PM EST [facility] Comment: The sand car worker has not determined the efficacy of this test in Critically ill patients. ??[facility] defines Critically ill patients for the [...] DE VICE Final Result Performing Organization Address [facility] Co de Phone Number [facility], [facility] [address] [place] [address], [place] * [place], Urine (06/22/2024 7:38 PM EST) Extra Tube Hold for add-ons. 06/23/2024 1:06 AM EST [facility] Comment:Auto resulted. Urine Urine specimen collection, clean catch / Unknown Non-Blood Collection / Unknown 06/22/2024 7:38 PM EST 06/22/2024 7:49 PM EST us Alex Hines MD LAB URINE ORDERABLES Fin al Result [email or web address] [address] [place] [address], * (ABNORMAL) Urinalysis W/Reflex to Microscopic & Culture (06/22/2024 7:38 PM EST) Color, Urine Light Yellow Colorless, Light Yellow, Yellow, Dark Yellow 06/22/2024 8:17 PM EST [facility] Clarity, Urine Clear Clear 06/22/2024 8:17 PM EST [facility] Specific [place], Urine 1.020 1.005 - 1.030 06/22/2024 8:17 PM EST [facility] pH, Urine 6.0 4.6 - 8.0 06/22/2024 8:17 PM EST [facility] Protein, Urine Negative Negative 06/22/2024 8:17 PM EST [facility] Glucose, Urine 3+(A) Negative 06/22/2024 8:17 PM EST [facility] Ketones, Urine 1+(A) Negative 06/22/2024 8:17 PM EST [facility] Bilirubin, Urine Negative Negative 06/22/2024 8:17 PM EST [facility] Blood, Urine 2+(A) Negative 06/22/2024 8:17 PM EST [facility] Nitrite, Urine Negative Negative 06/22/2024 8:17 PM EST [facility] Urobilinogen, Urine Normal Normal 06/22/2024 8:17 PM EST [facility] Leukocyte Esterase, Urine Negative Negative 06/22/2024 8:17 PM EST [facility] WBC, Urine <1 0 - 2 /HPF 06/22/2024 8:17 PM EST [facility] RBC, Urine <1 0 - 2 /HPF 06/22/2024 8:17 PM EST [facility] Hyaline Casts, Urine 0 0 - 2 /LPF 06/22/2024 8:17 PM EST [facility] Bacteria, Urine None None /HPF /HPF 06/22/2024 8:17 PM EST [facility] Urine Urine specimen collection, clean catch / Unknown Non-Blood Collection / Unknown 06/22/2024 7:38 PM EST 06/22/2024 7:49 PM EST Alex Hines MD LAB URINE ORDERABLES Fin al Result [facility] [address] [place] [address], * Blood Culture, Peripheral #2 (06/22/2024 6:42 PM EST) Culture No growth after 5 days 06/27/2024 10:22 PM EST [employer] [facility] Blood Structure of peripheral vein / Unknown Venipuncture / Unknown 06/22/2024 6:42 PM EST 06/22/2024 7:04 PM EST Narrative [facility] - 06/27/2024 10:22 PM EST [facility] Received Date: MICRO NUMBER: [id number] SPECIMEN QUALITY: Suboptimal SOURCE: BLOOD VENOUS, PERIPHERAL STATUS: FINAL COMMENT: Aerobic and anaerobic bottle received. Inspection of blood culture bottles indicates that an inadequate volume of blood may have been collected for the detection of sepsis. Alex Hines MD LAB MICROBIOLOGY - GENER AL ORDERABLES Final Result [facility] [address] [facility] 3rd Floor, [place] [address], [place] [phone] [employer] [facility] [address] [facility] 3rd [address], [place] [address], [place] [phone] * Blood Culture, Peripheral #1 (06/22/2024 6:42 PM EST) Pathologist [facility] Culture No growth after 5 days 06/27/2024 10:11 PM EST [employer] [facility] Blood Structure of peripheral vein / Unknown Venipuncture / Unknown 06/22/2024 6:42 PM EST 06/22/2024 7:04 PM EST Narrative [facility] - 06/27/2024 10:11 PM EST [facility] Received Date: MICRO NUMBER: [id number] SPECIMEN QUALITY: Suboptimal SOURCE: BLOOD VENOUS, PERIPHERAL STATUS: FINAL COMMENT: Aerobic and anaerobic bottle received. Inspection of blood culture bottles indicates that an inadequate volume of blood may have been collected for the detection of sepsis. Alex Hines MD LAB MICROBIOLOGY - GENER AL ORDERABLES Final Result Performing Organization Address City/[facility]/ZIP Co de Phone Number [facility] [address] [facility] [address], [place] [address], [place] [phone] [employer] [facility] [address] [facility] [address], [place] [address], [place] [phone] * (ABNORMAL) Creatine Kinase (06/22/2024 3:13 PM EST) Pathologist [facility] CK 12,274(H) 49 - 348 U/L 06/22/2024 4:01 PM EST [facility] Blood Structure of peripheral vein / Unknown Venipuncture / Unknown 06/22/2024 3:13 PM EST 06/22/2024 3:19 PM EST Sofía Hardy MD LAB BLOOD ORDERABLES Final Result [facility] [address] [place] [address], [place] * (ABNORMAL) BMP - Basic Metabolic Panel (06/22/2024 3:13 PM EST) Pathologist [facility] NA 136 135 - 145 mmol/L 06/22/2024 [...] [facility] [address] [place] [address], * X-Ray Hand Left 3+ Views (06/22/2024 [...] obtain the completed interpretation. ? Workstation ID: [id number] Narrative 06/22/2024 2:06 PM EST COMPARISON: ??None. ?? FINDINGS AND Resulting Agency Comment [id number] Procedure Note Antonia Wayne MD - 06/22/2024 COMPARISON: None. FINDINGS AND IMPRESSION: No acute fracture or dislocation. Alignment and joint spaces aremaintained. Soft tissues are within normal limits. If this radiology report contains a blank impression section, it is anincomplete radiology report. Please contact the interpreting radiologistor applicable radiology division as soon as possible to obtain thecompleted interpretation. Workstation ID: [id number] Sofía Hardy MD IMG XR PROCEDURES Final Res ult * ECG 12 lead (06/22/2024 1:31 PM EST) Ventricular Rate EKG 86 BPM MUSE EKG Atrial Rate 86 BPM MUSE EKG UT Interval 132 ms MUSE EKG QRS Interval 90 ms MUSE EKG QT Interval 362 ms MUSE EKG QTC Interval 433 ms MUSE EKG P Melvin 53 degrees MUSE EKG R Melvin 30 degrees MUSE EKG T Wave Melvin 33 degrees MUSE EKG 06/22/2024 1:31 PM EST 07/01/2024 12:59 PM EST Impressions MUSE EKG - 07/01/2024 12:59 PM EST NORMAL SINUS RHYTHM NORMAL ECG WHEN COMPARED WITH ECG OF 22-JUN-2024 08:12, (UNCONFIRMED) PREVIOUS ECG HAS UNDETERMINED RHYTHM, NEEDS REVIEW Confirmed by Ulises Thompson ([id number]) on 07/01/2024 12:59:17 PM us Sofía Hardy MD ECG ORDERABLES Final Resul t MUSE EKG * Lactic Acid, Plasma (06/22/2024 10:59 AM EST) Lactic Acid 1.6 0.5 - 1.9 mmol/L 06/22/2024 11:47 AM EST [facility] Blood Structure of peripheral vein / Unknown Venipuncture / Unknown 06/22/2024 10:59 AM EST 06/22/2024 11:17 AM EST us Sofía Hardy MD LAB BLOOD ORDERABLES Final Result Performing Organization Address [facility] de Phone Number [facility] [address] [place] [address], * CT C-Spine WO Contrast (06/22/2024 8:55 [...] obtain the completed interpretation. ? Workstation ID: [id number] Up-to-date CT equipment and radiation dose reduction techniques were employed. CTDIvol: 26.2 - 70.4 mGy. DLP: 2128 mGy-cm. ??The following accession numbers are related to this dose report [id number]: [id number] Narrative 06/22/2024 9:50 AM EST COMPARISON: No [...] tissues are unremarkable. ?? Resulting Agency Comment [id number] Procedure Note Paulo Osuna, DO - 06/22/2024 [...] possible to obtain thecompleted interpretation. Workstation ID: [id number] Up-to-date CT equipment and radiation dose reduction techniques wereemployed. CTDIvol: 26.2 - 70.4 mGy. DLP: 2128 mGy-cm. The followingaccession numbers are related to this dose report [id number]: [id number] us Sofía Hardy MD IMG CT PROCEDURES [...] obtain the completed interpretation. ? Workstation ID: [id number] Up-to-date CT equipment and radiation dose reduction techniques were employed. CTDIvol: 26.2 - 70.4 mGy. DLP: 2128 mGy-cm. ??The following accession numbers are related to this dose report [id number]: [id number] Narrative 06/22/2024 9:48 AM EST TECHNIQUE: 3D [...] cells are well aerated. Resulting Agency Comment [id number] Procedure Note Paulo Osuna, DO - 06/22/2024 [...] possible to obtain thecompleted interpretation. Workstation ID: [id number] Up-to-date CT equipment and radiation dose reduction techniques wereemployed. CTDIvol: 26.2 - 70.4 mGy. DLP: 2128 mGy-cm. The followingaccession numbers are related to this dose report [id number]: [id number] Sofía Hardy MD IMG CT PROCEDURES Final Res ult * ECG 12 lead (06/22/2024 8:12 AM EST) Ventricular Rate EKG 84 BPM MUSE EKG Atrial Rate 83 BPM MUSE EKG UT Interval 140 ms MUSE EKG QRS Interval 84 ms MUSE EKG QT Interval 384 ms MUSE EKG QTC Interval 453 ms MUSE EKG P Melvin 55 degrees MUSE EKG R Melvin 28 degrees MUSE EKG T Wave Melvin 50 degrees MUSE EKG 06/22/2024 8:12 AM [...] CoV-2 RNA Not Detected Not Detected [employer] [facility] 06/22/2024 8:57 AM EST [facility] Comment:A Not Detected (Nega [...] Detected [employer] 06/22/2024 8:57 AM EST [facility] Comment:Negative results do not preclude infection and should not be used as the sole basis for diagnosis, treatment or other patient management decisions. Negative results must be combined with clinical observations, patient history, and/or epidemiological information. Flu B RNA PCR Not Detected Not Detected [employer] GENEXPERT 06/22/2024 8:57 AM EST [facility] Comment:Negative results do not preclude infection and should not be used as the sole basis for diagnosis, treatment or other patient management decisions. Negative results must be combined with clinical observations, patient history, and/or epidemiological information. RSV RNA PCR Not Detected Not Detected [employer] 06/22/2024 8:57 AM EST [facility] Comment:Negative results do not preclude infection and should not be used as the sole basis for diagnosis, treatment or other patient management decisions. Negative results must be combined with clinical observations, patient history, and/or epidemiological information. Swab (Nares) Non-Blood Collection / Unknown 06/22/2024 8:10 AM EST 06/22/2024 8:10 AM EST Narrative [facility] - 06/22/2024 8:57 AM EST This test was developed, validated and its performance characteristics determined by [facility] Clinical Labs. This test has not been cleared or approved by the U.S. Food and Drug Administration (FDA). FDA Policy for Diagnostic Tests for Coronavirus Disease-2019 during the Public Health Emergency issued August 04, 2019, is followed. us Sofía Hardy MD LAB BODY FLUIDS AND STOOLS ORDERABLES Final Result [facility] [address] [place] [address], * Ethanol (06/22/2024 8:08 AM EST) Ethanol <10 <10 mg/dL 06/22/2024 8:45 AM EST [facility] Blood Structure of peripheral vein / Unknown Venipuncture / Unknown 06/22/2024 8:08 AM EST 06/22/2024 8:12 AM EST Sofía Hardy MD LAB BLOOD ORDERABLES Final Result Performing Organization Address [facility] Co de Phone Number [facility] [address] [place] [address], [place] * (ABNORMAL) Creatine Kinase (06/22/2024 8:08 AM EST) CK 17,563(H) 49 - 348 U/L 06/22/2024 8:59 AM EST [facility] Blood Structure of peripheral vein / Unknown Venipuncture / Unknown 06/22/2024 8:08 AM EST 06/22/2024 8:12 AM EST Sofía Hardy MD LAB BLOOD ORDERABLES Final Result Performing Organization Address [facility] Co de Phone Number [facility] [address] [place] [address], [place] * Lipase (06/22/2024 8:08 AM EST) Lipase 27 13 - 60 U/L 06/22/2024 8:48 AM EST [facility] Blood Structure of peripheral vein / Unknown Venipuncture / Unknown 06/22/2024 8:08 AM EST 06/22/2024 8:12 AM EST Sofía Hardy MD LAB BLOOD ORDERABLES Final Result Performing Organization Address [facility] Co de Phone Number [facility] [address] [place] [address], [place] * (ABNORMAL) Lactic Acid (w/Repeat if >2) - Sepsis (06/22/2024 8:08 AM EST) Lactic Acid 2.7(H) 0.5 - 1.9 mmol/L 06/22/2024 8:41 AM EST [employer] [email or web address] Blood Structure of peripheral vein / Unknown Venipuncture / Unknown 06/22/2024 8:08 AM EST 06/22/2024 8:13 AM EST us Sofía Hardy MD LAB BLOOD ORDERABLES Final Result [employer] [address] [place] [address], [place] * (ABNORMAL) CBC Auto Differential (06/22/2024 8:08 AM EST) WBC 10.9(H) 3.8 - 10.8 10*3/uL 06/22/2024 8:23 AM EST [facility] RBC 4.68 4.20 - 5.80 10*6/uL 06/22/2024 8:23 AM EST [facility] Hemoglobin 11.5(L) 13.2 - 17.1 g/dL 06/22/2024 8:23 AM EST [facility] Hematocrit 35.7(L) 38.5 - 50.0 % 06/22/2024 8:23 AM EST [facility] MCV 76.3(L) 80.0 - 100.0 fL 06/22/2024 8:23 AM EST [facility] MCH 24.6(L) 27.0 - 33.0 pg 06/22/2024 8:23 AM EST [facility] MCHC 32.2 32.0 - 36.0 g/dL 06/22/2024 8:23 AM EST [facility] RDW 15.3(H) 11.0 - 15.0 % 06/22/2024 8:23 AM EST [facility] Platelets 186 140 - 400 10*3/uL 06/22/2024 8:23 AM EST [employer] [email or web address] MPV 10.4 7.5 - [...] <0.01 <0.01 10*3/uL 06/22/2024 8:23 AM EST [facility] Blood Structure of peripheral vein / Unknown Venipuncture / Unknown 06/22/2024 8:08 AM EST 06/22/2024 8:13 AM EST us Sofía Hardy MD LAB BLOOD ORDERABLES Final Result [facility] [address] [place] [address], * (ABNORMAL) CMP - Comprehensive Metabolic Panel (06/22/2024 8:08 AM EST) NA 138 135 - 145 mmol/L 06/22/2024 8:48 AM EST [facility] K 4.7 3.5 - 5.3 mmol/L 06/22/2024 8:48 AM EST [facility] Cl 97(L) 98 - 107 mmol/L 06/22/2024 8:48 AM EST [facility] CO2 16(L) 22 - 32 mmol/L 06/22/2024 8:48 AM EST [facility] Anion Gap 25(H) 5 - 15 06/22/2024 8:48 AM EST [facility] Glucose 235(H) 65 - 99 mg/dL 06/22/2024 8:48 AM EST [facility] Creatinine 1.30 0.60 - 1.30 mg/dL 06/22/2024 8:48 AM EST [facility] Calcium 9.3 8.6 - 10.5 mg/dL 06/22/2024 8:48 AM EST [facility] Total Protein 8.1(H) 6.0 - 8.0 g/dL 06/22/2024 8:48 AM EST [facility] Albumin 4.5 3.5 - 5.2 g/dL 06/22/2024 8:48 AM EST [facility] Bilirubin, Total 0.5 0.2 - 1.2 mg/dL 06/22/2024 8:48 AM EST [facility] Alkaline Phosphatase 60 35 - 129 U/L 06/22/2024 8:48 AM EST [facility] AST 314(H) 10 - 40 U/L 06/22/2024 8:48 AM EST [facility] ALT 142(H) 10 - 40 U/L 06/22/2024 8:48 AM EST [facility] BUN 50(H) 7 - 23 mg/dL 06/22/2024 8:48 AM EST [facility] eGFR 72 >=60 mL/min/1. 73m2 06/22/2024 8:48 AM EST [facility] Comment:The estimated glomer ular [...] - 4.2 g/dL 06/22/2024 8:48 AM EST [facility] A/G Ratio 1.3(L) 1.5 - 3.0 06/22/2024 8:48 AM EST [facility] Blood Structure of peripheral vein / Unknown Venipuncture / Unknown 06/22/2024 8:08 AM EST 06/22/2024 8:12 AM EST us Sofía Hardy MD LAB BLOOD ORDERABLES Final Result [facility] [address] [place] [address], [place] * XR Chest Portable 1 View [...] obtain the completed interpretation. ? Workstation ID: [id number] Narrative 06/22/2024 8:14 AM EST COMPARISON: None. FINDINGS: Lines/Tubes/Devices: None. Lungs: No consolidation or pulmonary edema. Pleura: No pleural effusion. No pneumothorax. Heart/Mediastinum: The cardiac and mediastinal contours are normal. Bones/Soft tissues: No acute osseous abnormality. Resulting Agency Comment [id number] Procedure Note Paulo Osuna DO - 06/22/2024 [...] possible to obtain thecompleted interpretation. Workstation ID: [id number] us Sofía Hardy MD IMG XR PROCEDURES [...] abuse, unspecified drinking behavior Cocaine use disorder ([facility]) Opioid use disorder Frostbite of both feet Fever Fever, unspecified T2DM (type 2 diabetes mellitus) ([facility]) Type II or unspecified type diabetes mellitus without mention of complication, not stated as uncontrolled AVRIL (obstructive sleep apnea) Obstructive sleep apnea (adult) (pediatric) Suicidal ideation Intentional drug overdose ([facility]) Poisoning by unspecified drug or medicinal substance [...] Martha Carcamo RN)2152 (Stopped - Provider: Martha aCrcamo RN) 0619 (New Bag/Syringe - Provider: Emani Jiménez RN)0712 (Stopped - Provider: Emani Jiménez RN)1412 (New Bag/Syringe - Provider: Emani Jiménez RN)1442 (Stopped - Provider: Debbie Saba RN)2048 (New Bag/Syringe - Provider: Nora Pittman RN)2129 (Stopped - Provider: Nora Pittman RN) 0623 (New Bag/Syringe - Provider: Marika Bryan RN)0700 (Stopped - Provider: Marika Brayn RN) thiamine mononitrate (VITAMIN B1) tablet 100 [...] documented as of this encounter Care Teams [employer] Worker Relationship Specialty Start Date End Date Dayne Dubose [address] [place] [address] PCP - General 06/25/24 documented as of this encounter
--- OUTSIDE RECORDS SUMMARY | 2024-07-10 15:34 | XMS_ITS | Referral Summary ---
Author Organization [facility] Address [address] [id number] Care Team Providers Care Income Tax Manager Name Role Phone betty Dayne Primary Care Provider [phone] Encounters Date Type Department Care Team Description 06/22/2024 7:39 AM EST - 06/25/2024 9:01 PM [facility] Hospital Encounter [facility] Emergency Department [address] [place] [address] Sofía Hardy MD Darling, Chad E, MD [...] drug rehab program before being discharged to [facility], more recently he is homeless and [...] drug rehab program before being discharged to [facility], more recently he is homeless and [...] fluffs between toes and loose 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 [...] disorder (alcohol, cocaine, opioids), who presented to [facility] ED on 06/22/2024 after being found down. [...] Not on file Procedures * Due to [place] state law, this organization might not be [...] Last 3 Months Results * Due to [place] state law, this organization might not be sharing negative HIV tests. * (ABNORMAL) Creatine Kinase (06/25/2024 7:41 PM EST) Only the most recent of9 resultswithin the time period is included. CK 1,115(H) 49 - 348 U/L 06/25/2024 8:35 PM EST [facility] Blood Structure of peripheral vein / Unknown Venipuncture / Unknown 06/25/2024 7:41 PM EST 06/25/2024 8:05 PM EST us Quintin Ng MD LAB BLOOD ORDERABLES Final Res ult Performing Organization Address [facility]/ZIP Co de Phone Number [facility] [address] [place] [id number], * (ABNORMAL) POCT Glucose, interfaced (06/25/2024 5:00 PM EST) Only the most recent of11 resultswithin the time period is included. Glucose, POCT 312(H) 70 - 99 mg/dL 06/25/2024 5:[address] [facility] [employer], POC Comment: The mounter hand has not determined the efficacy of this test in Critically ill patients. ??[facility] defines Critically ill patients for the [...] DEVICE Fin al Result Performing Organization Address City/[facility]/ZIP Co de Phone Number [facility] HOSPITALCrittercismOHIOHE[facility], POC [address] [place] [address], * (ABNORMAL) CBC Auto Differential (06/25/2024 6:41 [...] <0.01 <0.01 10*3/uL 06/25/2024 7:36 AM EST [facility] Blood Structure of peripheral vein / Unknown Venipuncture / Unknown 06/25/2024 6:41 AM EST 06/25/2024 7:29 AM EST us Alex Brand MD LAB BLOOD ORDERABLES Fin al Result [facility] [address] [place] [address], * Phosphorus (06/25/2024 6:41 AM EST) Only the most recent of3 resultswithin the time period is included. Phosphorus 3.0 2.5 - 4.5 mg/dL 06/25/2024 8:07 AM EST [facility] Blood Structure of peripheral vein / Unknown Venipuncture / Unknown 06/25/2024 6:41 AM EST 06/25/2024 7:29 AM EST Alex Brand MD LAB BLOOD ORDERABLES Fin al Result Performing Organization Address City/[facility] Co de Phone Number [facility] [address] [place] [address], [place] * Magnesium (06/25/2024 6:41 AM EST) Only the most recent of3 resultswithin the time period is included. MG 1.8 1.6 - 2.4 mg/dL 06/25/2024 8:07 AM EST [facility] Blood Structure of peripheral vein / Unknown Venipuncture / Unknown 06/25/2024 6:41 AM EST 06/25/2024 7:29 AM EST Alex Brand MD LAB BLOOD ORDERABLES Fin al Result [facility] [address] [place] [address], * (ABNORMAL) Basic metabolic panel (06/25/2024 6:41 AM EST) Only the most recent of4 resultswithin the time period is included. NA 140 135 - 145 mmol/L 06/25/2024 8:07 AM EST [facility] K 4.1 3.5 - 5.3 mmol/L 06/25/2024 8:07 AM EST [facility] Cl 103 98 - 107 mmol/L 06/25/2024 8:07 AM EST [facility] [employer] [facility] CO2 26 22 - 32 mmol/L 06/25/2024 8:07 AM EST [facility] [facility] BUN 11 7 - 23 mg/dL 06/25/2024 8:07 AM EST [facility] [facility] Creatinine 0.97 0.60 - 1.30 mg/dL 06/25/2024 8:07 AM EST [employer] [facility] Glucose 210(H) 65 - 99 mg/dL 06/25/2024 8:07 AM EST [facility] Calcium 9.2 8.6 - 10.5 mg/dL 06/25/2024 8:07 AM EST [facility] Anion Gap 11 5 - 15 06/25/2024 8:07 AM EST [facility] eGFR >90 >=60 mL/min/1. 73m2 06/25/2024 8:07 AM EST [facility] Comment:The estimated glomer ular [...] MD LAB BLOOD ORDERABLES Fin al Result [facility] [address] [place] [address], [place] * UA [place] Top (06/23/2024 4:20 PM EST) Extra Tube Hold for add-ons. 06/23/2024 9:05 PM EST [facility] HEALTHCARExG TechnologyMARIETTA MEM[facility]IAL [facility] [employer] [facility] Comment:Auto resulted. Urine Urine specimen collection, clean catch / Unknown 06/23/2024 4:20 PM EST 06/23/2024 4:20 PM EST Quintin Ng MD LAB BLOOD ORDERABLES Final Res ult [facility] HEALTHCARExG TechnologyOHIOHEALTH MAR[facility] [employer] [facility] [address] [place] [address], [place] * Methadone Screen w/Confirmation, Urine (06/23/2024 4:11 PM EST) Methadone Metabolite Screen, Urine NEGATIVE <100 ng/mL 06/24/2024 5:13 AM EST [employer] Comment: See Note 1 Urine Voided urine specimen / Unknown Non-Blood Collection / Unknown 06/23/2024 4:11 PM EST 06/23/2024 4:18 PM EST Narrative [facility] - 06/24/2024 5:13 AM EST [facility] Received Date:[id number] Quintin Ng MD LAB URINE ORDERABLES Final Res ult [facility] [address] [facility] [address] Floor, [place] [address], [place] [phone] [facility] [address] [facility] 3rd Floor, [place] [address], [place] [phone] * Morphine and Codeine Confirmation, Urine (06/23/2024 4:11 PM EST) Codeine, Urine NEGATIVE <50 ng/mL 06/25/2024 9:46 AM EST [employer] Comment: See Note 1 Hydrocodone, Urine NEGATIVE <50 ng/mL 06/25/2024 9:46 AM EST [facility] Comment: See Note 1 Hydromorphone, Urine NEGATIVE <50 ng/mL 06/25/2024 9:46 AM EST [employer] Comment: See Note 1 Morphine, Urine NEGATIVE <50 ng/mL 9:46 AM EST [facility] Comment: See Note 1 Norhydrocodone, Urine NEGATIVE <50 ng/mL 06/25/2024 9:46 AM EST [facility] Comment: See Note 1 See Note 2 Note 1 This test was developed and its analytical performance characteristics have been determined by [employer]. It has not been cleared or approved [...] interpreting these drug results, please contact a [employer] Toxicology Specialist: [phone] ( ), M-F, 8am-6pm EST. Urine Voided urine specimen / Unknown Non-Blood Collection / Unknown 06/23/2024 4:11 PM EST 06/23/2024 4:18 PM EST Narrative [facility] - 06/25/2024 9:46 AM EST [facility] Received Date: Quintin Ng MD LAB URINE ORDERABLES Final Res ult [facility] [address] [facility] [address] Floor, [place] [address], [place] [phone] [facility] [address], [place] [address], [place] [phone] * Barbiturate Screen, Urine (06/23/2024 4:11 PM EST) Barbiturate Screen, Urine Negative Negative 06/23/2024 5:19 PM EST [facility] Comment: Detection limit of [...] MD LAB URINE ORDERABLES Final Res ult [facility] [facility] [address] [place] [address], * Propoxyphene Screen, Urine (06/23/2024 4:11 PM EST) Propoxyphene Screen, Urine NEGATIVE <300 ng/mL 06/24/2024 5:13 AM EST [employer] Comment: See Note 2 Note 1 This drug testing is for medical treatment only. ?? Analysis was performed as non-forensic testing and these results should be used only by healthcare providers to render diagnosis or treatment, or to monitor progress of medical conditions. For assistance with interpreting these drug results, please contact a [employer] Toxicology Specialist: [phone] ( ), M-F, 8am-6pm EST. Note [...] interpreting these drug results, please contact a [employer] Toxicology Specialist: [phone] ( ), M-F, 8am-6pm EST. Urine Voided urine specimen / Unknown Non-Blood Collection / Unknown 06/23/2024 4:11 PM EST 06/23/2024 4:18 PM EST Narrative [facility] - 06/24/2024 5:13 AM EST [facility] Received Date: Quintin Ng MD LAB URINE ORDERABLES Final Res ult [facility] [address] [facility] [address] Floor, [place] [address], [place] [phone] [facility] [address] [facility] 3rd Floor, [place] [address], [place] [phone] * Marijuana Qualitative Screen, Urine (06/23/2024 4:11 PM EST) Marijuana Screen, Urine Negative Negative 06/23/2024 5:19 PM EST [facility] Comment: Detection limit of 50 ng/mL of 88-Bol-yflkt-7-JKG-2-carboxylic acid. Drug results are to be used only for medical purposes. ??Unconfirmed screening results must not be used for non-medical purposes. Urine Voided urine specimen / Unknown Non-Blood Collection / Unknown 06/23/2024 4:11 PM EST 06/23/2024 4:18 PM EST Quintin Ng MD LAB URINE ORDERABLES Final Res ult Performing Organization Address City/[facility]/ZIP Co de Phone Number [facility]ALTHCARECDI [employer] [facility] LAB[facility]ATORY [address] [place] [address], * Phencyclidine (PCP) Screen, Urine (06/23/2024 4:11 PM EST) Phencyclidine Screen, Urine NEGATIVE <25 ng/mL 06/24/2024 5:13 AM EST [facility] Comment: See Note 2 Urine Voided urine specimen / Unknown Non-Blood Collection / Unknown 06/23/2024 4:11 PM EST 06/23/2024 4:18 PM EST Narrative [facility] - 06/24/2024 5:13 AM EST [facility] Received Date: Quintin Ng MD LAB URINE ORDERABLES Final Res ult [facility] MANJARREZ [address] [facility] 3[address], [place] [address], [place] [phone] [facility] [address], [place] [address], [place] [phone] * (ABNORMAL) Cocaine Qualitative, Urine (06/23/2024 4:11 PM EST) Cocaine Metabolite Screen, Urine Presumptive Positive(A) Negative 06/23/2024 5:19 PM EST [facility] Comment: Detection limit of 300 ng/mL of Benzoylecgonine. Drug results are to be used only for medical purposes. ??Unconfirmed screening results must not be used for non-medical purposes. Urine Voided urine specimen / Unknown Non-Blood Collection / Unknown 06/23/2024 4:11 PM EST 06/23/2024 4:18 PM EST Quintin Ng MD LAB URINE ORDERABLES Final Res ult Performing Organization Address [facility] de Phone Number [facility]ALTHCARECDI [employer] [facility] [employer] [facility] LAB[facility] [address] [place] [address], [place] * Benzodiazepine Qualitative Screen, Urine (06/23/2024 4:11 PM EST) Benzodiazepine Screen, Urine Negative Negative 06/23/2024 5:19 PM EST [facility] Comment: Detection limit of 200 ng/mL of Nordiazepam. Drug results are to be used only for medical purposes. ??Unconfirmed screening results must not be used for non-medical purposes. Urine Voided urine specimen / Unknown Non-Blood Collection / Unknown 06/23/2024 4:11 PM EST 06/23/2024 4:18 PM EST Quintin Ng MD LAB URINE ORDERABLES Final Res ult Performing Organization Address City/[facility] Co de Phone Number [facility] HEALTHCARExG TechnologyOHIOHEALTH [facility] [employer] [facility] LABORATORY [address] [place] [address], * Amphetamine Qualitative, Urine (06/23/2024 4:11 PM EST) Pathologist [facility] Amphetamine Screen, Urine Negative Negative 06/23/2024 5:19 PM EST [facility]ALTHCARExG TechnologyOHIOHE[facility] [employer] [facility] Comment: Detection limit of 1000 ng/mL of d-Methamphetamine. Drug results are to be used only for medical purposes. ??Unconfirmed screening results must not be used for non-medical purposes. Urine Voided urine specimen / Unknown Non-Blood Collection / Unknown 06/23/2024 4:11 PM EST 06/23/2024 4:18 PM EST Quintin Ng MD LAB URINE ORDERABLES Final Res ult Performing Organization Address [facility] Co de Phone Number [facility]WIxG TechnologyOHIOHEALTH [facility] [employer] [facility] [address] [place] [address], [place] * TSH Reflex Free T4 (06/23/2024 7:46 AM EST) Pathologist [facility] TSH 0.337 0.280 - 3.890 uIU/mL 06/23/2024 2:[address] [facility] [employer] CL[facility] LAB[facility] Blood Structure of peripheral vein / Unknown Venipuncture / Unknown 06/23/2024 7:46 AM EST 06/23/2024 7:51 AM EST Quintin Ng MD LAB BLOOD ORDERABLES Final Res ult Performing Organization Address [facility] Co de Phone Number [facility] [employer] [facility]ORY [address] [place] [address], [place] * (ABNORMAL) Hemoglobin A1c (06/23/2024 7:46 AM EST) Pathologist [facility] Hemoglobin A1C 7.9(H) <5.7 % of total Hgb 06/23/2024 12:45 PM EST [employer] Comment: For someone without known diabetes, a [...] (MG/DL) 180 mg/dL 06/23/2024 12:45 PM EST [facility] eAG (MMOL/L) 10.0 mmol/L 06/23/2024 12:45 PM EST [facility] Blood Structure of peripheral vein / Unknown Venipuncture / Unknown 06/23/2024 7:46 AM EST 06/23/2024 7:46 AM EST Narrative [facility] - 06/23/2024 12:45 PM EST [facility] Received Date: Alex Brand MD LAB BLOOD ORDERABLES Fin al Result [facility] [address] [facility] 3rd Floor, [place] [address], [facility] [address], [place] [address], * Folate (06/23/2024 7:46 AM EST) Folate 15.0 4.8 - 24.2 ng/mL 06/23/2024 2:56 PM EST [facility] Blood Structure of peripheral vein / Unknown Venipuncture / Unknown 06/23/2024 7:46 AM EST 06/23/2024 7:51 AM EST Quintin Ng MD LAB BLOOD ORDERABLES Final Res ult [facility] [address] [place] [address], * Vitamin B12 (06/23/2024 7:46 AM EST) Vitamin B12 584 232 - 1,245 pg/mL 06/23/2024 2:56 PM EST [facility] Blood Structure of peripheral vein / Unknown Venipuncture / Unknown 06/23/2024 7:46 AM EST 06/23/2024 7:51 AM EST Quintin Ng MD LAB BLOOD ORDERABLES Final Res ult [facility] [employer] [facility] LAB[facility] [address] [place] [address], [place] * Hepatitis C Antibody w/Reflex to HCV RNA, Quantitative PCR (06/23/2024 7:44 AM EST) Hepatitis C Antibody NON-REACT ZAINA NON-REACT ZAINA 06/23/2024 9:10 PM EST [facility] Comment: HCV antibody was non-reactive. There is no laboratory evidence of HCV infection. In most cases, no further action is required. However, if recent HCV exposure is suspected, a test for HCV RNA (test code 29288) is suggested. For additional information please refer to http://education.[employer]/faq/ODN26g6 (This link is being provided for informational/ educational purposes only.) Blood Structure of peripheral vein / Unknown Venipuncture / Unknown 06/23/2024 7:44 AM EST 06/23/2024 7:45 AM EST Narrative [facility] - 06/23/2024 9:10 PM EST [facility] Received Date: Alex Brand MD LAB BLOOD ORDERABLES Fin al Result [facility] [address] [facility] [address], [place] [address], [place] [phone] [facility] [address] [facility] 3rd [address], [place] [address], [place] [phone] * [place] Top, Urine (06/22/2024 7:38 PM EST) Extra Tube Hold for add-ons. 06/23/2024 1:06 AM EST [facility] [facility] Comment:Auto resulted. Urine Urine specimen collection, clean catch / Unknown Non-Blood Collection / Unknown 06/22/2024 7:38 PM EST 06/22/2024 7:49 PM EST Alex Brand MD LAB URINE ORDERABLES Fin al Result [facility] [facility] [address] [place] [address], * (ABNORMAL) Urinalysis W/Reflex to Microscopic & Culture (06/22/2024 7:38 PM EST) Color, Urine Light Yellow Colorless, Light Yellow, Yellow, Dark Yellow 06/22/2024 8:17 PM EST [facility] Clarity, Urine Clear Clear 06/22/2024 8:17 PM EST [facility] Specific [place], Urine 1.020 1.005 - 1.030 06/22/2024 8:17 PM EST [facility] pH, Urine 6.0 4.6 - 8.0 06/22/2024 8:17 PM EST [facility] Protein, Urine Negative Negative 06/22/2024 8:17 PM EST [facility] Glucose, Urine 3+(A) Negative 06/22/2024 8:17 PM EST [facility] Ketones, Urine 1+(A) Negative 06/22/2024 8:17 PM EST [facility] Bilirubin, Urine Negative Negative 06/22/2024 8:17 PM EST [facility] Blood, Urine 2+(A) Negative 06/22/2024 8:17 PM EST [facility] Nitrite, Urine Negative Negative 06/22/2024 8:17 PM EST [facility] Urobilinogen, Urine Normal Normal 06/22/2024 8:17 PM EST [facility] Leukocyte Esterase, Urine Negative Negative 06/22/2024 8:17 PM EST [facility] WBC, Urine <1 0 - 2 /HPF 06/22/2024 8:17 PM EST [facility] RBC, Urine <1 0 - 2 /HPF 06/22/2024 8:17 PM EST [facility] Hyaline Casts, Urine 0 0 - 2 /LPF 06/22/2024 8:17 PM EST [facility] Bacteria, Urine None None /HPF /HPF 06/22/2024 8:17 PM EST [facility] Urine Urine specimen collection, clean catch / Unknown Non-Blood Collection / Unknown 06/22/2024 7:38 PM EST 06/22/2024 7:49 PM EST us Alex Brand MD LAB URINE ORDERABLES Fin al Result [facility] [address] [place], [place] [id number], * Blood Culture, Peripheral #2 (06/22/2024 6:42 PM EST) Only the most recent of2 resultswithin the time period is included. Culture No growth after 5 days 06/27/2024 10:22 PM EST [facility] Blood Structure of peripheral vein / Unknown Venipuncture / Unknown 06/22/2024 6:42 PM EST 06/22/2024 7:04 PM EST [facility] 06/27/2024 10:22 PM EST [facility] Received Date: MICRO NUMBER: [id number] SPECIMEN QUALITY: Suboptimal SOURCE: BLOOD VENOUS, PERIPHERAL STATUS: FINAL COMMENT: Aerobic and anaerobic bottle received. Inspection of blood culture bottles indicates that an inadequate volume of blood may have been collected for the detection of sepsis. Alex Brand MD LAB MICROBIOLOGY - GENER AL ORDERABLES Final Result [facility] [address], [place] [address], [place] [phone] [facility] [address], [place] [address], [place] [phone] * X-Ray Hand Left 3+ Views (06/22/2024 [...] obtain the completed interpretation. ? Workstation ID: [id number] Narrative 06/22/2024 2:06 PM EST COMPARISON: ??None. ?? FINDINGS AND Resulting Agency Comment [id number] Procedure Note Antonia Wayne MD - 06/22/2024 COMPARISON: None. FINDINGS AND IMPRESSION: No acute fracture or dislocation. Alignment and joint spaces aremaintained. Soft tissues are within normal limits. If this radiology report contains a blank impression section, it is anincomplete radiology report. Please contact the interpreting radiologistor applicable radiology division as soon as possible to obtain thecompleted interpretation. Workstation ID: [id number] Sofía Hardy MD IMG XR PROCEDURES Final Res ult * ECG 12 lead (06/22/2024 1:31 PM EST) Only the most recent of2 resultswithin the time period is included. Ventricular Rate EKG 86 BPM MUSE EKG Atrial Rate 86 BPM MUSE EKG MO Interval 132 ms MUSE EKG QRS Interval 90 ms MUSE EKG QT Interval 362 ms MUSE EKG QTC Interval 433 ms MUSE EKG P Emmet 53 degrees MUSE EKG R Emmet 30 degrees MUSE EKG T Wave Emmet 33 degrees MUSE EKG 06/22/2024 1:31 PM EST 07/01/2024 12:59 PM EST Impressions MUSE EKG - 07/01/2024 12:59 PM EST NORMAL SINUS RHYTHM NORMAL ECG WHEN COMPARED WITH ECG OF 22-JUN-2024 08:12, (UNCONFIRMED) PREVIOUS ECG HAS UNDETERMINED RHYTHM, NEEDS REVIEW Confirmed by Ulises Thompson ([id number]) on 07/01/2024 12:59:17 PM us Sofía Hardy MD ECG ORDERABLES Final Resul t MUSE EKG * Lactic Acid, Plasma (06/22/2024 10:59 AM EST) Lactic Acid 1.6 0.5 - 1.9 mmol/L 06/22/2024 11:47 AM EST [facility] Blood Structure of peripheral vein / Unknown Venipuncture / Unknown 06/22/2024 10:59 AM EST 06/22/2024 11:17 AM EST us Sofía Hardy MD LAB BLOOD ORDERABLES Final Result [facility] [address] [place] [address], * CT C-Spine WO Contrast (06/22/2024 8:55 [...] obtain the completed interpretation. ? Workstation ID: [id number] Up-to-date CT equipment and radiation dose reduction techniques were employed. CTDIvol: 26.2 - 70.4 mGy. DLP: 2128 mGy-cm. ??The following accession numbers are related to this dose report [id number]: [id number] Narrative 06/22/2024 9:50 AM EST COMPARISON: No [...] tissues are unremarkable. ?? Resulting Agency Comment [id number] Procedure Note Paulo Osuna DO - 06/22/2024 [...] possible to obtain thecompleted interpretation. Workstation ID: [id number] Up-to-date CT equipment and radiation dose reduction techniques wereemployed. CTDIvol: 26.2 - 70.4 mGy. DLP: 2128 mGy-cm. The followingaccession numbers are related to this dose report [id number]: [id number] us Sofía Hardy MD IM CT PROCEDURES [...] obtain the completed interpretation. ? Workstation ID: [id number] Up-to-date CT equipment and radiation dose reduction techniques were employed. CTDIvol: 26.2 - 70.4 mGy. DLP: 2128 mGy-cm. ??The following accession numbers are related to this dose report [id number]: [id number] Narrative 06/22/2024 9:48 AM EST TECHNIQUE: 3D [...] cells are well aerated. Resulting Agency Comment [id number] Procedure Note Paulo Osuna DO - 06/22/2024 [...] possible to obtain thecompleted interpretation. Workstation ID: [id number] Up-to-date CT equipment and radiation dose reduction techniques wereemployed. CTDIvol: 26.2 - 70.4 mGy. DLP: 2128 mGy-cm. The followingaccession numbers are related to this dose report [id number]: [id number] us Sofía Hardy MD IM CT PROCEDURES Final Res ult * COVID-19, Flu A/B & RSV RNA PCR, Symptomatic (06/22/2024 8:10 AM EST) Pathologist [facility] PCR, SARS CoV-2 RNA Not Detected Not Detected [employer] 06/22/2024 8:57 AM EST [facility] Comment:A Not Detected (Nega [...] A RNA PCR Not Detected Not Detected [employer] [facility] 06/22/2024 8:57 AM EST [facility] Comment:Negative results do not preclude infection and should not be used as the sole basis for diagnosis, treatment or other patient management decisions. Negative results must be combined with clinical observations, patient history, and/or epidemiological information. Flu B RNA PCR Not Detected Not Detected [facility] GEN[facility] 06/22/2024 8:57 AM EST [facility] Comment:Negative results do not preclude infection and should not be used as the sole basis for diagnosis, treatment or other patient management decisions. Negative results must be combined with clinical observations, patient history, and/or epidemiological information. RSV RNA PCR Not Detected Not Detected CEPHE[facility] GENEXPERT 06/22/2024 8:57 AM EST [facility] Comment:Negative results do not preclude infection and should not be used as the sole basis for diagnosis, treatment or other patient management decisions. Negative results must be combined with clinical observations, patient history, and/or epidemiological information. Swab (Nares) Non-Blood Collection / Unknown 06/22/2024 8:10 AM EST 06/22/2024 8:10 AM EST Narrative [facility] - 06/22/2024 8:57 AM EST This test was developed, validated and its performance characteristics determined by [facility]. This test has not been cleared or approved by the U.S. Food and Drug Administration (FDA). FDA Policy for Diagnostic Tests for Coronavirus Disease-2019 during the Public Health Emergency issued August 04, 2019, is followed. Sofía Hardy MD LAB BODY FLUIDS AND STOOLS ORDERABLES Final Result Performing Organization Address City/[facility]/ZIP Co de Phone Number [facility] [address] [place] [address], * (ABNORMAL) Lactic Acid (w/Repeat if >2) - Sepsis (06/22/2024 8:08 AM EST) Pathologist [facility] Lactic Acid 2.7(H) 0.5 - 1.9 mmol/L 06/22/2024 8:41 AM EST [facility] Blood Structure of peripheral vein / Unknown Venipuncture / Unknown 06/22/2024 8:08 AM EST 06/22/2024 8:13 AM EST Sofía Hardy MD LAB BLOOD ORDERABLES Final Result Performing Organization Address City/[facility]/ZIP Co de Phone Number [facility] [address] [place] [address], [place] * Lipase (06/22/2024 8:08 AM EST) Lipase 27 13 - 60 U/L 06/22/2024 8:48 AM EST [facility] Blood Structure of peripheral vein / Unknown Venipuncture / Unknown 06/22/2024 8:08 AM EST 06/22/2024 8:12 AM EST Sofía Hardy MD LAB BLOOD ORDERABLES Final Result Performing Organization Address City/[facility]/ZIP Co de Phone Number [facility] [address] [place] [address], [place] * Ethanol (06/22/2024 8:08 AM EST) Ethanol <10 <10 mg/dL 06/22/2024 8:45 AM EST [facility] Blood Structure of peripheral vein / Unknown Venipuncture / Unknown 06/22/2024 8:08 AM EST 06/22/2024 8:12 AM EST Sofía Hardy MD LAB BLOOD ORDERABLES Final Result Performing Organization Address City/[facility]/ZIP Co de Phone Number [facility] [address] [place] [address], * (ABNORMAL) CMP - Comprehensive Metabolic Panel (06/22/2024 8:08 AM EST) NA 138 135 - 145 mmol/L 06/22/2024 8:48 AM EST [facility] [facility]AL - [facility] K 4.7 3.5 - 5.3 mmol/L 06/22/2024 8:48 AM EST [facility] Cl 97(L) 98 - 107 mmol/L 06/22/2024 8:48 AM EST [facility] CO2 16(L) 22 - 32 mmol/L 06/22/2024 8:48 AM EST [facility] [facility] Anion Gap 25(H) 5 - 15 06/22/2024 8:48 AM EST [facility] [facility] Glucose 235(H) 65 - 99 mg/dL 06/22/2024 8:48 AM EST [employer]SMEx[employer] TechnologyRIAL [facility] Creatinine 1.30 0.60 - 1.30 mg/dL 06/22/2024 8:48 AM EST UM[facility] Technology[facility] Calcium 9.3 8.6 - 10.5 mg/dL 06/22/2024 8:48 AM EST [facility] Total Protein 8.1(H) 6.0 - 8.0 g/dL 06/22/2024 8:48 AM EST [facility] Albumin 4.5 3.5 - 5.2 g/dL 06/22/2024 8:48 AM EST [facility] Bilirubin, Total 0.5 0.2 - 1.2 mg/dL 06/22/2024 8:48 AM EST [facility]SC[facility] Alkaline Phosphatase 60 35 - 129 U/L 06/22/2024 8:48 AM EST [facility] AST 314(H) 10 - 40 U/L 06/22/2024 8:48 AM EST [facility] ALT 142(H) 10 - 40 U/L 06/22/2024 8:48 AM EST [facility] BUN 50(H) 7 - 23 mg/dL 06/22/2024 8:48 AM EST [facility] eGFR 72 >=60 mL/min/1. 73m2 06/22/2024 8:48 AM EST [employer] Networks[facility]AL [facility] Comment:The estimated glomer ular [...] - 4.2 g/dL 06/22/2024 8:48 AM EST [facility] A/G Ratio 1.3(L) 1.5 - 3.0 06/22/2024 8:48 AM EST [facility] Blood Structure of peripheral vein / Unknown Venipuncture / Unknown 06/22/2024 8:08 AM EST 06/22/2024 8:12 AM EST us Sofía Hardy MD LAB BLOOD ORDERABLES Final Result [facility] [address] [place] [address], [place] * XR Chest Portable 1 View [...] obtain the completed interpretation. ? Workstation ID: [id number] Narrative 06/22/2024 8:14 AM EST COMPARISON: None. FINDINGS: Lines/Tubes/Devices: None. Lungs: No consolidation or pulmonary edema. Pleura: No pleural effusion. No pneumothorax. Heart/Mediastinum: The cardiac and mediastinal contours are normal. Bones/Soft tissues: No acute osseous abnormality. Resulting Agency Comment [id number] Procedure Note Paulo Osuna DO - 06/22/2024 [...] possible to obtain thecompleted interpretation. Workstation ID: [id number] us Sofía Hardy MD IMG XR PROCEDURES Final Res ult * HEART & VASCULAR - SCANNED (06/22/2024) Anatomical Region Laterality Modality Other us Onbase Scan Paras SCANNED PROCEDURES Final Resu lt from Last 3 Months Insurance [employer] [facility] [facility] MEDICAID Advance Directives * Full Code (Latest Code Status on File) Date Activated Date Inactivated Comments 06/22/2024 2:22 PM 06/25/2024 11:13 PM Care Teams Income Tax Manager Relationship Specialty Start Date End Date Dayne Dubose [address] [place] [address] [id number] PCP - General 06/25/24
--- NOTE | 2024-07-10 17:49 | PC.ADMIT ---
Addendum entered by Rocío Parry RN 07/10/24 20:26: Late entry 1500 per Nurse to nurse, his foot wounds were cultured and came back MRSA positive. Original Note: Luan arrived via wheelchair from [place] [id number]. He is alert and oriented x4. He was cooperative with skin/safety check. His skin check is significant for bilateral bandages on feet which are dry and intact, he also has a small open area on the top of right hand at base of fingers bandaid applied. He is known to this unit as he was discharged on 07/01/24 on a 3 day notice. He returned to [facility] 07/03/24 with worsening foot pain. He had been treated for duarte bite on both feet during his last admission, he left continuing to need foot soaks, xeraform and DSD TID. he states when he left here he was unable to obtain his prescriptions I would have had to walk to get them . He was admitted to the medical floor for osteomyelitis and IV antibiotics. He is now on PO antibx's. He was seen by care team and IPLOC recommended. He continues to endorse SI, no plan. But he reports positive command AH. the voices are meaner this time. They are telling me to stab myself . He agrees to seek staff if this feeling worsens. He signed a CV with Jaret Arce NP. Med rec done Dr Hernandez aware. He received flu vaccine last admission. He denies using any substances prior to coming in this time and denies smoking. No NRT needed. He is on 5 minute safety checks for using a walker.
--- NOTE | 2024-07-10 18:17 | PHA.MEDREC ---
Pharmacy Consult ? Medication Reconciliation Pharmacy has completed the medication reconciliation, patient transferred from third floor, utilized medical record and that med rec.
[2024-07-10] MEDS: glyBURIDE 5 MG TABLET PO (18:56)
[2024-07-10 20:00] VITALS: BP 110/64; PULSE 88; TEMP 36.6; O2SAT 99
[2024-07-10 20:45] LABS: Glucose, Whole Blood 246 mg/dL (60-115)
[2024-07-10] MEDS: HaloperidoL 5 MG TABLET 10 MG PO (21:17)
[2024-07-10] MEDS: Sulfamethox/Trimeth 800/160 TABLET 1 TAB PO (21:17)
[2024-07-10 21:18] VITALS: BP 110/64
[2024-07-10] MEDS: QUEtiapine Fumarate 100 MG TABLET PO (21:18)
[2024-07-10] MEDS: Benztropine Mesylate 1 MG TABLET PO (21:18)
[2024-07-10] MEDS: Insulin Glargine,Hum.rec.anlog 100 UNIT/ML 10 ML VIAL 28 UNIT SUBCUT (21:18)
[2024-07-10] MEDS: cloNIDine HCL 0.1 MG TABLET PO (21:18)
[2024-07-10] MEDS: metFORMIN HCl 1,000 MG TABLET 1000 MG PO (21:18)
[2024-07-10] MEDS: Insulin Lispro 100 UNIT/ML 3 ML VIAL SUBCUT (21:19)
[2024-07-10] MEDS: Acetaminophen 325 MG TABLET 650 MG PO (21:24)
[2024-07-11 08:00] VITALS: BP 107/65; PULSE 63; RESP 16; TEMP 37.4; O2SAT 100
[2024-07-11] MEDS: glyBURIDE 5 MG TABLET PO ×2 (09:00→17:06)
[2024-07-11] MEDS: Sulfamethox/Trimeth 800/160 TABLET 1 TAB PO ×2 (09:00→21:13)
[2024-07-11] MEDS: metFORMIN HCl 1,000 MG TABLET 1000 MG PO ×2 (09:00→21:13)
[2024-07-11] MEDS: HaloperidoL 5 MG TABLET 10 MG PO ×2 (09:00→21:13)
[2024-07-11 09:01] VITALS: BP 107/65
[2024-07-11] MEDS: cloNIDine HCL 0.1 MG TABLET PO ×2 (09:01→21:13)
[2024-07-11] MEDS: Acetaminophen 325 MG TABLET 650 MG PO ×2 (09:02→16:14)
[2024-07-11 12:58] LABS: Glucose, Whole Blood 182 mg/dL (60-115)
[2024-07-11] MEDS: Insulin Lispro 100 UNIT/ML 3 ML VIAL SUBCUT ×2 (13:17→21:11)
--- NOTE | 2024-07-11 13:37 | PC.NURSE ---
07/11/24 signed 3 day, up on 07/16/24
--- NOTE | 2024-07-11 13:59 | HO.PSYADMNOT ---
HPI Date of Service: 07/11/24 Chief Complaint: Psychosis Sources of Information: patient interviewed, chart reviewed and crisis/core team assessment reviewed HPI Subjective Notes: Strange Warning, Conditional Voluntary and 3 Day Healthcare Proxy: No Guardianship: No Medical Problems Affecting Mental Status: No Narrative: Seen 130pm 39 yo male, hx of schiozphrenia, substance use disorder, to ER with EMS. Mother called for help as pt reported foot pain (recent duarte bite), CAH to strangle/choke himself. Pt admitted medically and transferred to when cleared. Pt asks for team support today. States he has signed a 3 day notice. Reviewed his last admit/discharge. He did not go to the [facility] [place]. Currently, plans to stay with a friend in [place] then [facility] Pt's OP team is working on admit to [facility]. Pt reports sleep, appetite are intact, denies current AH,VH and no current fears. He agrees to a wound care consult for review of treatment of the frostbite prior to leaving. Past Psychiatric History: -Hx of multiple inpatient psychiatric admissions. Patient unable to specify dates. Patient was section 35 in 12/2023. hx of decompensation in the context of non-adherence. outpt: none current Patient reports history of 5-6 suicide attempts but does not specify details. Medical Evaluation Reviewed: Yes [facility] Medical History Sleep apnea Medical clearance for psychiatric admission Routine history and physical examination of adult Cardiomyopathy Cocaine abuse Cannabis abuse Diabetes Schizophrenia, chronic condition Surgical History No pertinent past surgical history Family History: -Bio mom: schizophrenia -Bio dad: alcohol use disorder. schizophrenia. Social History: -Born and raised in [place], [place], has bio parents and sister. homeless. Highest level of education completed was 9th grade. Disability. Trauma History: Yes Diagnostics Vital Signs (24Hr): Vital Signs - 24 hr 07/10/24 15:00 07/10/24 20:00 07/10/24 21:18 Temperature 98.4 F 97.8 F Pulse Rate 88 88 Respiratory Rate 16 Blood Pressure 128/78 110/64 110/64 Pulse Oximetry 97 99 Oxygen Delivery Method Room Air 07/11/24 08:00 07/11/24 09:01 Temperature 99.3 F Pulse Rate 63 Respiratory Rate 16 Blood Pressure 107/65 107/65 Pulse Oximetry 100 Oxygen Delivery Method Room Air BMI result Body Mass Index 27.0 Labs Labs: Laboratory Results - last 48 hr 07/10/24 07/11/24 20:35 12:55 POC Glucose 246 H 182 H Meds/Allergies Meds Home Medications ?Medication ?Instructions ?Recorded ?Confirmed ?Type sulfamethoxazole 800 1 tab PO Q12H 07/10/24 07/10/24 History mg-trimethoprim 160 mg tablet (Bactrim DS) Allergies Allergies Allergy/AdvReac Type Severity Reaction Status Date / Time codeine AdvReac Unknown Unknown Verified 07/03/24 13:44 Mental Status Exam Mental Status Exam Patient Appearance: Appropriate Patient Orientation: Person, Place, Time and Situation Level of Consciousness: Alert Patient Behavior: Guarded, Talkative and Good Eye Contact Mood Description: Constricted Affect Description: Constricted Patient Cognition Impaired: No Ability to Follow Directions: Good Speech Pattern: Spontaneous Speech Memory Description: Episodic Impaired Hallucinations: None Delusions: Paranoid Ideation Thought Process: Goal Oriented Thought Content: positive for Circumstantial, positive for Goal Oriented and positive for Preoccupation Judgement: Fair Assessment & Plan Assessment & Plan (1) PTSD (post-traumatic stress disorder): Status: Acute Code(s): F43.10 - Post-traumatic stress disorder, unspecified (2) Opioid use disorder: Status: Acute Code(s): F11.90 - Opioid use, unspecified, uncomplicated (3) Schizophrenia, chronic condition: Status: Acute Code(s): F20.9 - Schizophrenia, unspecified Plan Admit, CV, 15 minute checks TDN signed today Collateral Contacts Diagnostics as needed Continue current regime Encourage milieu Discharge planning Patient educated on: therapeutic strategies Reason for continued inpatient stay Substantial Risk for: rapid decompensation Statement Statement: I have reviewed the history and physical and performed a pertinent examination on my patient. No changes have occurred unless specified. If the History and Physical was not performed prior to admission, the Hospitalist's service will be consulted for completing the admission physical. Time Spent With Patient Time: Total time managing care of this patient today ____ minutes.
[2024-07-11 17:21] LABS: Glucose, Whole Blood 149 mg/dL (60-115)
[2024-07-11 19:44] VITALS: BP 105/56; PULSE 69; RESP 16; TEMP 36.6; O2SAT 95
[2024-07-11] MEDS: Insulin Glargine,Hum.rec.anlog 100 UNIT/ML 10 ML VIAL 28 UNIT SUBCUT (21:11)
[2024-07-11] MEDS: QUEtiapine Fumarate 100 MG TABLET PO (21:13)
[2024-07-11] MEDS: Benztropine Mesylate 1 MG TABLET PO (21:13)
[2024-07-11 21:53] LABS: Glucose, Whole Blood 242 mg/dL (60-115)
[2024-07-12 08:00] VITALS: BP 113/56; PULSE 72; RESP 18; TEMP 36.4; O2SAT 100
[2024-07-12 08:49] LABS: Glucose, Whole Blood 190 mg/dL (60-115)
[2024-07-12] MEDS: Insulin Lispro 100 UNIT/ML 3 ML VIAL SUBCUT ×4 (09:07→21:17)
[2024-07-12] MEDS: metFORMIN HCl 1,000 MG TABLET 1000 MG PO ×2 (09:07→20:48)
[2024-07-12] MEDS: Sulfamethox/Trimeth 800/160 TABLET 1 TAB PO ×2 (09:07→20:48)
[2024-07-12] MEDS: glyBURIDE 5 MG TABLET PO ×2 (09:07→17:05)
[2024-07-12] MEDS: cloNIDine HCL 0.1 MG TABLET PO ×2 (09:07→20:48)
[2024-07-12] MEDS: HaloperidoL 5 MG TABLET 10 MG PO ×2 (09:07→20:48)
[2024-07-12 12:17] LABS: Glucose, Whole Blood 251 mg/dL (60-115)
[2024-07-12] MEDS: Acetaminophen 325 MG TABLET 650 MG PO ×2 (12:37→19:19)
--- NOTE | 2024-07-12 12:59 | HO.PSYCHPN ---
Subjective Subjective Date of Service: 07/12/24 Reason For Visit: Psychosis Interim History: met with pt; discussed with team pt says he is alright and give thumbs up regarding mood. Says i put in a 3 day... He denies any SI or AVH at all. Says feet feeling better as well. Discussed tx; discussed Lantus and pt says he would like to learn to administer. sales activity manager consult entered. Mental Status Exam Mental Status Exam Narrative: Pt is alert and oriented; behavior is cooperative, isolative, but polite on approach, calm; patient is not in distress; dressed in casual attire with unkempt hair but adequate hygiene; mood is described as alright and affect congruent, calm, brighter; eye contact appropriate; Speech is normal rate, volume and prosody and not pressured; no psychomotor agitation/retardation present; thought process is organized and goal directed; Thought content is on tx; otherwise pertinent to relevant topics and without any delusional content, paranoid ideations or grandiosity; denies any SI/HI. Denies AVH and there is no evidence of perceptual disturbance. Patients insight and judgment appear intact. Diagnostics Vital Signs (24Hr): Vital Signs - 24 hr 07/11/24 19:44 07/12/24 08:00 Temperature 97.8 F 97.6 F Pulse Rate 69 72 Respiratory Rate 16 18 Blood Pressure 105/56 L 113/56 L Pulse Oximetry 95 100 Oxygen Delivery Method Room Air Room Air BMI result Body Mass Index 27.0 Labs Labs: Laboratory Results - last 48 hr 07/10/24 07/11/24 07/11/24 20:35 12:55 17:09 POC Glucose 246 H 182 H 149 H 07/11/24 07/12/24 07/12/24 20:55 08:34 12:11 POC Glucose 242 H 190 H 251 H Medications Medications Current Medications Acetaminophen (Acetaminophen 325 Mg Tablet) 650 mg PO Q6H PRN PRN Reason: Headache/Pain, Scale 1-10 Last Admin: 07/12/24 12:37 Dose: 650 mg Al Hydroxide/Mg Hydroxide (Magnesium Hydrox/Alum Hydrox 30 Ml Oral.Susp) 30 ml PO Q6H PRN PRN Reason: Heartburn/Nausea Benztropine Mesylate (Benztropine Mesylate 1 Mg Tablet) 1 mg PO BEDTIME ASHLEY Last Admin: 07/11/24 21:13 Dose: 1 mg Clonidine HCl (Clonidine Hcl 0.1 Mg Tablet) 0.1 mg PO BID [facility]; Protocol Last Admin: 07/12/24 09:07 Dose: 0.1 mg Glyburide (Glyburide 5 Mg Tablet) 5 mg PO BIDWM [facility] Last Admin: 07/12/24 09:07 Dose: 5 mg Haloperidol (Haloperidol 5 Mg Tablet) 10 mg PO BID [facility] Last Admin: 07/12/24 09:07 Dose: 10 mg Hydroxyzine HCl (Hydroxyzine Hcl 25 Mg Tablet) 25 mg PO Q6H PRN PRN Reason: mild anxiety Insulin Glargine (Insulin Glargine,Hum.Rec.Anlog 100 Unit/Ml 10 Ml Vial) 28 unit SUBCUT BEDTIME [facility] Last Admin: 07/11/24 21:11 Dose: 28 unit Insulin Human Lispro (Insulin Lispro 100 Unit/Ml 3 Ml Vial) 0 unit SUBCUT QIDACHS [facility]; Protocol Last Admin: 07/12/24 12:36 Dose: 12 unit Magnesium Hydroxide (Milk Of Magnesia 30 Ml Oral.Susp) 30 ml PO DAILY PRN PRN Reason: Constipation Melatonin (Melatonin 3 Mg Tablet) 6 mg PO BEDTIME PRN PRN Reason: sleep Metformin HCl (Metformin Hcl 1,000 Mg Tablet) 1,000 mg PO BID [facility] Last Admin: 07/12/24 09:07 Dose: 1,000 mg Nicotine (Nicotine 21 Mg Patch.Td24) 21 mg TRANSDERMA DAILY PRN PRN Reason: smoking cessation Olanzapine (Olanzapine 5 Mg Tablet) 5 mg PO TID PRN PRN Reason: agitation Quetiapine Fumarate (Quetiapine Fumarate 100 Mg Tablet) 100 mg PO BEDTIME [facility] Last Admin: 07/11/24 21:13 Dose: 100 mg Trazodone HCl (Trazodone Hcl 50 Mg Tablet) 50 mg PO BEDTIME MRX1 PRN PRN Reason: Insomnia Trimethoprim/Sulfamethoxazole (Sulfamethox/Trimeth 800/160 Tablet) 1 tab PO Q12H [facility] Stop: 07/13/24 19:59 Last Admin: 07/12/24 09:07 Dose: 1 tab Allergies Allergies Allergy/AdvReac Type Severity Reaction Status Date / Time codeine AdvReac Unknown Unknown Verified 07/03/24 13:44 Assessment & Plan Assessment & Plan (1) Schizophrenia, chronic condition: Status: Acute Code(s): F20.9 - Schizophrenia, unspecified (2) PTSD (post-traumatic stress disorder): Status: Acute Code(s): F43.10 - Post-traumatic stress disorder, unspecified (3) Opioid use disorder: Status: Acute Code(s): F11.90 - Opioid use, unspecified, uncomplicated (4) Diabetes: Status: Acute Code(s): E11.9 - Type 2 diabetes mellitus without complications (5) Frostbite: Status: Acute Code(s): T33.90XA - Superficial frostbite of unspecified sites, initial encounter (6) Homeless: Status: Acute Code(s): Z59.00 - Homelessness unspecified Plan Hospital course: 07/12 pt says he is alright and give thumbs up regarding mood. Says i put in a 3 day... He denies any SI or AVH at all. Says feet feeling better as well. Discussed tx; discussed Lantus and pt says he would like to learn to administer. -sales activity manager consult entered. -wound consult ordered and wound care protocols entered. PLAN: Admit, 3 day notice 15 minute checks TDN signed today Collateral Contacts Diagnostics as needed Continue current regime Encourage milieu Discharge planning Patient educated on: diagnosis, medication risk/benefits and medical condition Informed Consent: understands Reason for continued inpatient stay Substantial Risk for: stable for discharge and rapid decompensation Time Spent With Patient Time: Total time managing care of this patient today ____ minutes.
[2024-07-12] MEDS: OLANZapine 5 MG TABLET PO (15:18)
[2024-07-12 17:05] LABS: Glucose, Whole Blood 142 mg/dL (60-115)
[2024-07-12 19:49] VITALS: BP 108/58; PULSE 80; TEMP 36.8; O2SAT 95
[2024-07-12] MEDS: Insulin Glargine,Hum.rec.anlog 100 UNIT/ML 10 ML VIAL 28 UNIT SUBCUT (20:47)
[2024-07-12] MEDS: Benztropine Mesylate 1 MG TABLET PO (20:48)
[2024-07-12] MEDS: QUEtiapine Fumarate 100 MG TABLET PO (20:48)
[2024-07-12] MEDS: traZODone HCL 50 MG TABLET PO (21:16)
[2024-07-12 21:36] LABS: Glucose, Whole Blood 316 mg/dL (60-115)
[2024-07-13 07:59] LABS: Glucose, Whole Blood 171 mg/dL (60-115)
[2024-07-13] MEDS: glyBURIDE 5 MG TABLET PO ×2 (08:28→17:26)
[2024-07-13] MEDS: HaloperidoL 5 MG TABLET 10 MG PO ×2 (08:28→20:45)
[2024-07-13 08:29] VITALS: BP 131/63; PULSE 72; TEMP 36.8; O2SAT 99
[2024-07-13] MEDS: Insulin Lispro 100 UNIT/ML 3 ML VIAL SUBCUT ×4 (08:29→20:44)
[2024-07-13] MEDS: cloNIDine HCL 0.1 MG TABLET PO ×2 (08:29→20:45)
[2024-07-13] MEDS: Sulfamethox/Trimeth 800/160 TABLET 1 TAB PO (08:29)
[2024-07-13] MEDS: metFORMIN HCl 1,000 MG TABLET 1000 MG PO ×2 (08:29→20:45)
--- NOTE | 2024-07-13 10:19 | P.PNPSI_ITS ---
Subjective Subjective Date of Service: 07/13/24 Reason For Visit: Psychosis Interim History: Met with patient; discussed with team Patient reports that he is good and denies any complaints. No SI, no AVH. Feet feeling better. Patient still focused on discharge next week Mental Status Exam Mental Status Exam Narrative: Pt is alert and oriented; behavior is cooperative, isolative, but polite on approach, calm; patient is not in distress; dressed in casual attire with adequate hygiene and grooming; mood is described as alright and affect congruent, calm, brighter; eye contact appropriate; Speech is normal rate, volume and prosody and not pressured; no psychomotor agitation/retardation present; thought process is organized and goal directed; Thought content is on tx; otherwise pertinent to relevant topics and without any delusional content, paranoid ideations or grandiosity; denies any SI/HI. Denies AVH and there is no evidence of perceptual disturbance. Patients insight and judgment fair, baseline Diagnostics Vital Signs (24Hr): Vital Signs - 24 hr 07/12/24 19:49 07/13/24 08:29 07/13/24 08:29 Temperature 98.2 F 98.2 F Pulse Rate 80 72 Blood Pressure 108/58 L 131/63 131/63 Pulse Oximetry 95 99 Oxygen Delivery Method Room Air Room Air BMI result Body Mass Index 27.0 Labs Labs: Laboratory Results - last 48 hr 07/11/24 07/11/24 07/11/24 12:55 17:09 20:55 POC Glucose 182 H 149 H 242 H 07/12/24 07/12/24 07/12/24 08:34 12:11 17:01 POC Glucose 190 H 251 H 142 H 07/12/24 07/13/24 21:00 07:52 POC Glucose 316 H 171 H Medications Medications Current Medications Acetaminophen (Acetaminophen 325 Mg Tablet) 650 mg PO Q6H PRN PRN Reason: Headache/Pain, Scale 1-10 Last Admin: 07/12/24 19:19 Dose: 650 mg Al Hydroxide/Mg Hydroxide (Magnesium Hydrox/Alum Hydrox 30 Ml Oral.Susp) 30 ml PO Q6H PRN PRN Reason: Heartburn/Nausea Benztropine Mesylate (Benztropine Mesylate 1 Mg Tablet) 1 mg PO BEDTIME [facility] Last Admin: 07/12/24 20:48 Dose: 1 mg Clonidine HCl (Clonidine Hcl 0.1 Mg Tablet) 0.1 mg PO BID [facility]; Protocol Last Admin: 07/13/24 08:29 Dose: 0.1 mg Glyburide (Glyburide 5 Mg Tablet) 5 mg PO BIDWM [facility] Last Admin: 07/13/24 08:28 Dose: 5 mg Haloperidol (Haloperidol 5 Mg Tablet) 10 mg PO BID [facility] Last Admin: 07/13/24 08:28 Dose: 10 mg Hydroxyzine HCl (Hydroxyzine Hcl 25 Mg Tablet) 25 mg PO Q6H PRN PRN Reason: mild anxiety Insulin Glargine (Insulin Glargine,Hum.Rec.Anlog 100 Unit/Ml 10 Ml Vial) 28 unit SUBCUT BEDTIME [facility] Last Admin: 07/12/24 20:47 Dose: 28 unit Insulin Human Lispro (Insulin Lispro 100 Unit/Ml 3 Ml Vial) 0 unit SUBCUT QIDACHS [facility]; Protocol Last Admin: 07/13/24 08:29 Dose: 5 unit Magnesium Hydroxide (Milk Of Magnesia 30 Ml Oral.Susp) 30 ml PO DAILY PRN PRN Reason: Constipation Melatonin (Melatonin 3 Mg Tablet) 6 mg PO BEDTIME PRN PRN Reason: sleep Metformin HCl (Metformin Hcl 1,000 Mg Tablet) 1,000 mg PO BID [facility] Last Admin: 07/13/24 08:29 Dose: 1,000 mg Nicotine (Nicotine 21 Mg Patch.Td24) 21 mg TRANSDERMA DAILY PRN PRN Reason: smoking cessation Olanzapine (Olanzapine 5 Mg Tablet) 5 mg PO TID PRN PRN Reason: agitation Last Admin: 07/12/24 15:18 Dose: 5 mg Quetiapine Fumarate (Quetiapine Fumarate 100 Mg Tablet) 100 mg PO BEDTIME [facility] Last Admin: 07/12/24 20:48 Dose: 100 mg Trazodone HCl (Trazodone Hcl 50 Mg Tablet) 50 mg PO BEDTIME MRX1 PRN PRN Reason: Insomnia Last Admin: 07/12/24 21:16 Dose: 50 mg Trimethoprim/Sulfamethoxazole (Sulfamethox/Trimeth 800/160 Tablet) 1 tab PO Q12H [facility] Stop: 07/13/24 19:59 Last Admin: 07/13/24 08:29 Dose: 1 tab Allergies Allergies Allergy/AdvReac Type Severity Reaction Status Date / Time codeine AdvReac Unknown Unknown Verified 07/03/24 13:44 Assessment & Plan Assessment & Plan (1) Schizophrenia, chronic condition: Status: Acute Code(s): F20.9 - Schizophrenia, unspecified (2) PTSD (post-traumatic stress disorder): Status: Acute Code(s): F43.10 - Post-traumatic stress disorder, unspecified (3) Opioid use disorder: Status: Acute Code(s): F11.90 - Opioid use, unspecified, uncomplicated (4) Diabetes: Status: Acute Code(s): E11.9 - Type 2 diabetes mellitus without complications (5) Frostbite: Status: Acute Code(s): T33.90XA - Superficial frostbite of unspecified sites, initial encounter (6) Homeless: Status: Acute Code(s): Z59.00 - Homelessness unspecified Plan Hospital course: 07/12 pt says he is alright and give thumbs up regarding mood. Says i put in a 3 day... He denies any SI or AVH at all. Says feet feeling better as well. Discussed tx; discussed Lantus and pt says he would like to learn to administer. -industrial economics teacher consult entered. -wound consult ordered and wound care protocols entered. 07/13 patient remains saying he is in good mood, no SI, no AVH and no complaints; wound dressing changed daily; remaining on the unit for dispo planning PLAN: Admit, 3 day notice 15 minute checks TDN signed today Collateral Contacts Diagnostics as needed Continue current regime Encourage milieu Discharge planning Patient educated on: diagnosis, medication risk/benefits and medical condition Informed Consent: understands Reason for continued inpatient stay Substantial Risk for: stable for discharge Time Spent With Patient Time: Total time managing care of this patient today ____ minutes.
[2024-07-13 11:57] LABS: Glucose, Whole Blood 175 mg/dL (60-115)
[2024-07-13 17:21] LABS: Glucose, Whole Blood 115 mg/dL (60-115)
[2024-07-13] MEDS: Acetaminophen 325 MG TABLET 650 MG PO (18:51)
[2024-07-13 20:00] VITALS: BP 98/53; PULSE 66; RESP 15; TEMP 36.8; O2SAT 66
[2024-07-13 20:15] LABS: Glucose, Whole Blood 187 mg/dL (60-115)
[2024-07-13] MEDS: Insulin Glargine,Hum.rec.anlog 100 UNIT/ML 10 ML VIAL 28 UNIT SUBCUT (20:44)
[2024-07-13] MEDS: QUEtiapine Fumarate 100 MG TABLET PO (20:45)
[2024-07-13] MEDS: Benztropine Mesylate 1 MG TABLET PO (20:45)
[2024-07-13] MEDS: traZODone HCL 50 MG TABLET PO (20:45)
[2024-07-14 08:00] VITALS: RESP 18
[2024-07-14] MEDS: HaloperidoL 5 MG TABLET 10 MG PO ×2 (08:34→21:23)
[2024-07-14] MEDS: glyBURIDE 5 MG TABLET PO ×2 (08:34→17:47)
[2024-07-14] MEDS: Insulin Lispro 100 UNIT/ML 3 ML VIAL SUBCUT ×3 (08:35→21:28)
[2024-07-14] MEDS: metFORMIN HCl 1,000 MG TABLET 1000 MG PO ×2 (08:35→21:24)
[2024-07-14 08:42] VITALS: BP 115/66
[2024-07-14] MEDS: cloNIDine HCL 0.1 MG TABLET PO ×2 (08:42→21:25)
[2024-07-14] MEDS: Acetaminophen 325 MG TABLET 650 MG PO ×2 (08:43→14:51)
--- NOTE | 2024-07-14 10:37 | P.PNPSI_ITS ---
Subjective Subjective Date of Service: 07/14/24 Reason For Visit: Psychosis Subjective Notes: Conditional Voluntary and 3 Day Healthcare Proxy: No Guardianship: No Medical Problems Affecting Mental Status: No Interim History: Pt reports he is feeling well, except for insomnia. Reports latency, PIPPA,PEDRO symptoms. Reports he plans to leave on this three day notice on 07/16/24. Denies other symptoms of concern. Medication Compliance: Yes Side effects from medications: No Attending Groups: No Review of Systems Acute medical concerns: No Medical Review of Systems: unchanged Review of Systems Review of Systems Insomnia Mental Status Exam Mental Status Exam Patient Appearance: Appropriate Patient Orientation: Person, Place, Time and Situation Level of Consciousness: Alert Patient Behavior: Appropriate, Talkative, Cooperative and Good Eye Contact Mood Description: Constricted Affect Description: Constricted Patient Cognition Impaired: No Ability to Follow Directions: Good Speech Pattern: Spontaneous Speech Memory Description: Intact Hallucinations: None Delusions: Not Present Perceptual Disturbances: Derealization Thought Process: Goal Oriented Thought Content: positive for Goal Oriented, positive for Preoccupation (with leaving to collect belongings), positive for Suicidal Ideation (denies) and positive for Homicidal Ideation (denies) Depressive Symptoms: Thoughts of /Suicide (denies) Judgement: Fair Diagnostics Vital Signs (24Hr): Vital Signs - 24 hr 07/13/24 20:00 07/14/24 08:00 07/14/24 08:42 Temperature 98.2 F Pulse Rate 66 Respiratory Rate 15 18 Blood Pressure 98/53 L 115/66 Pulse Oximetry 66 L BMI result Body Mass Index 27.0 Labs Labs: Laboratory Results - last 48 hr 07/12/24 07/12/24 07/12/24 12:11 17:01 21:00 POC Glucose 251 H 142 H 316 H 07/13/24 07/13/24 07/13/24 07:52 11:46 17:17 POC Glucose 171 H 175 H 115 07/13/24 20:11 POC Glucose 187 H Medications Medications Current Medications Acetaminophen (Acetaminophen 325 Mg Tablet) 650 mg PO Q6H PRN PRN Reason: Headache/Pain, Scale 1-10 Last Admin: 07/14/24 08:43 Dose: 650 mg Al Hydroxide/Mg Hydroxide (Magnesium Hydrox/Alum Hydrox 30 Ml Oral.Susp) 30 ml PO Q6H PRN PRN Reason: Heartburn/Nausea Benztropine Mesylate (Benztropine Mesylate 1 Mg Tablet) 1 mg PO BEDTIME [facility] Last Admin: 07/13/24 20:45 Dose: 1 mg Clonidine HCl (Clonidine Hcl 0.1 Mg Tablet) 0.1 mg PO BID [facility]; Protocol Last Admin: 07/14/24 08:42 Dose: 0.1 mg Glyburide (Glyburide 5 Mg Tablet) 5 mg PO BIDWM [facility] Last Admin: 07/14/24 08:34 Dose: 5 mg Haloperidol (Haloperidol 5 Mg Tablet) 10 mg PO BID [facility] Last Admin: 07/14/24 08:34 Dose: 10 mg Hydroxyzine HCl (Hydroxyzine Hcl 25 Mg Tablet) 25 mg PO Q6H PRN PRN Reason: mild anxiety Insulin Glargine (Insulin Glargine,Hum.Rec.Anlog 100 Unit/Ml 10 Ml Vial) 28 unit SUBCUT BEDTIME [facility] Last Admin: 07/13/24 20:44 Dose: 28 unit Insulin Human Lispro (Insulin Lispro 100 Unit/Ml 3 Ml Vial) 0 unit SUBCUT QIDACHS [facility]; Protocol Last Admin: 07/14/24 08:35 Dose: 5 unit Magnesium Hydroxide (Milk Of Magnesia 30 Ml Oral.Susp) 30 ml PO DAILY PRN PRN Reason: Constipation Melatonin (Melatonin 3 Mg Tablet) 6 mg PO BEDTIME PRN PRN Reason: sleep Metformin HCl (Metformin Hcl 1,000 Mg Tablet) 1,000 mg PO BID [facility] Last Admin: 07/14/24 08:35 Dose: 1,000 mg Nicotine (Nicotine 21 Mg Patch.Td24) 21 mg TRANSDERMA DAILY PRN PRN Reason: smoking cessation Olanzapine (Olanzapine 5 Mg Tablet) 5 mg PO TID PRN PRN Reason: agitation Last Admin: 07/12/24 15:18 Dose: 5 mg Quetiapine Fumarate (Quetiapine Fumarate 100 Mg Tablet) 100 mg PO BEDTIME [facility] Last Admin: 07/13/24 20:45 Dose: 100 mg Trazodone HCl (Trazodone Hcl 50 Mg Tablet) 50 mg PO BEDTIME MRX1 PRN PRN Reason: Insomnia Last Admin: 07/13/24 20:45 Dose: 50 mg Allergies Allergies Allergy/AdvReac Type Severity Reaction Status Date / Time codeine AdvReac Unknown Unknown Verified 07/03/24 13:44 Assessment & Plan Assessment & Plan (1) Schizophrenia, chronic condition: Status: Acute Code(s): F20.9 - Schizophrenia, unspecified (2) PTSD (post-traumatic stress disorder): Status: Acute Code(s): F43.10 - Post-traumatic stress disorder, unspecified (3) Opioid use disorder: Status: Acute Code(s): F11.90 - Opioid use, unspecified, uncomplicated (4) Diabetes: Status: Acute Code(s): E11.9 - Type 2 diabetes mellitus without complications (5) Frostbite: Status: Acute Code(s): T33.90XA - Superficial frostbite of unspecified sites, initial encounter (6) Homeless: Status: Acute Code(s): Z59.00 - Homelessness unspecified Plan Hospital course: 07/12 pt says he is alright and give thumbs up regarding mood. Says i put in a 3 day... He denies any SI or AVH at all. Says feet feeling better as well. Discussed tx; discussed Lantus and pt says he would like to learn to administer. -clinical document improvement educator consult entered. -wound consult ordered and wound care protocols entered. 07/13 patient remains saying he is in good mood, no SI, no AVH and no complaints; wound dressing changed daily; remaining on the unit for dispo planning 07/14 Increase Seroquel to 200 mg HS to address insomnia reported by pt. PLAN: Admit, 3 day notice 15 minute checks TDN signed today Collateral Contacts Diagnostics as needed Continue current regime Encourage milieu Discharge planning Reason for continued inpatient stay Substantial Risk for: rapid decompensation Time Spent With Patient Time: Total time managing care of this patient today ____ minutes.
[2024-07-14 11:51] LABS: Glucose, Whole Blood 150 mg/dL (60-115)
[2024-07-14 17:23] LABS: Glucose, Whole Blood 100 mg/dL (60-115)
[2024-07-14 20:00] VITALS: BP 127/81; PULSE 90; TEMP 36.6; O2SAT 100
[2024-07-14 20:58] LABS: Glucose, Whole Blood 210 mg/dL (60-115)
[2024-07-14] MEDS: QUEtiapine Fumarate 200 MG TABLET PO (21:24)
[2024-07-14 21:25] VITALS: BP 127/81
[2024-07-14] MEDS: traZODone HCL 50 MG TABLET PO (21:25)
[2024-07-14] MEDS: Benztropine Mesylate 1 MG TABLET PO (21:26)
[2024-07-14] MEDS: Insulin Glargine,Hum.rec.anlog 100 UNIT/ML 10 ML VIAL 28 UNIT SUBCUT (21:29)
[2024-07-15 08:16] LABS: Glucose, Whole Blood 155 mg/dL (60-115)
[2024-07-15] MEDS: glyBURIDE 5 MG TABLET PO ×2 (08:24→16:51)
[2024-07-15] MEDS: metFORMIN HCl 1,000 MG TABLET 1000 MG PO ×2 (08:24→21:07)
[2024-07-15] MEDS: HaloperidoL 5 MG TABLET 10 MG PO ×2 (08:24→21:07)
[2024-07-15] MEDS: Insulin Lispro 100 UNIT/ML 3 ML VIAL SUBCUT ×3 (08:25→21:04)
[2024-07-15] MEDS: Acetaminophen 325 MG TABLET 650 MG PO ×2 (09:26→16:51)
[2024-07-15 12:00] LABS: Glucose, Whole Blood 154 mg/dL (60-115)
--- NOTE | 2024-07-15 12:17 | HO.PSYCHPN ---
Subjective Subjective Date of Service: 07/15/24 Reason For Visit: Psychosis Subjective Notes: Conditional Voluntary and 3 Day Healthcare Proxy: No Guardianship: No Medical Problems Affecting Mental Status: No Interim History: Review of discharge with pt along with medications. Pt agrees with plan, agrees with meds. Denies SI,HI,AH, VH. No sx of acute isabel or psychosis Medication Compliance: Yes Side effects from medications: No Attending Groups: No Review of Systems Acute medical concerns: No Review of Systems Review of Systems Pt denies today Mental Status Exam Mental Status Exam Patient Appearance: Appropriate Patient Orientation: Person, Place, Time and Situation Level of Consciousness: Alert Patient Behavior: Appropriate, Talkative, Cooperative and Good Eye Contact Mood Description: Constricted Affect Description: Constricted Patient Cognition Impaired: No Ability to Follow Directions: Good Speech Pattern: Spontaneous Speech Memory Description: Intact Hallucinations: None Delusions: Not Present Perceptual Disturbances: Derealization Thought Process: Goal Oriented Thought Content: positive for Goal Oriented, positive for Preoccupation (with leaving to collect belongings), positive for Suicidal Ideation (denies) and positive for Homicidal Ideation (denies) Depressive Symptoms: Thoughts of /Suicide (denies) Judgement: Fair Diagnostics Vital Signs (24Hr): Vital Signs - 24 hr 07/14/24 20:00 07/14/24 21:25 Temperature 97.8 F Pulse Rate 90 Blood Pressure 127/81 127/81 Pulse Oximetry 100 Oxygen Delivery Method Room Air BMI result Body Mass Index 27.0 Labs Labs: Laboratory Results - last 48 hr 07/13/24 07/13/24 07/14/24 17:17 20:11 11:43 POC Glucose 115 187 H 150 H 07/14/24 07/14/24 07/15/24 17:19 20:55 08:08 POC Glucose 100 210 H 155 H 07/15/24 11:55 POC Glucose 154 H Medications Medications Current Medications Acetaminophen (Acetaminophen 325 Mg Tablet) 650 mg PO Q6H PRN PRN Reason: Headache/Pain, Scale 1-10 Last Admin: 07/15/24 09:26 Dose: 650 mg Al Hydroxide/Mg Hydroxide (Magnesium Hydrox/Alum Hydrox 30 Ml Oral.Susp) 30 ml PO Q6H PRN PRN Reason: Heartburn/Nausea Benztropine Mesylate (Benztropine Mesylate 1 Mg Tablet) 1 mg PO BEDTIME [facility] Last Admin: 07/14/24 21:26 Dose: 1 mg Clonidine HCl (Clonidine Hcl 0.1 Mg Tablet) 0.1 mg PO BID [facility]; Protocol Last Admin: 07/15/24 12:05 Dose: Not Given Glyburide (Glyburide 5 Mg Tablet) 5 mg PO BIDWM [facility] Last Admin: 07/15/24 08:24 Dose: 5 mg Haloperidol (Haloperidol 5 Mg Tablet) 10 mg PO BID [facility] Last Admin: 07/15/24 08:24 Dose: 10 mg Hydroxyzine HCl (Hydroxyzine Hcl 25 Mg Tablet) 25 mg PO Q6H PRN PRN Reason: mild anxiety Insulin Glargine (Insulin Glargine,Hum.Rec.Anlog 100 Unit/Ml 10 Ml Vial) 28 unit SUBCUT BEDTIME [facility] Last Admin: 07/14/24 21:29 Dose: 28 unit Insulin Human Lispro (Insulin Lispro 100 Unit/Ml 3 Ml Vial) 0 unit SUBCUT QIDACHS [facility]; Protocol Last Admin: 07/15/24 08:25 Dose: 5 unit Magnesium Hydroxide (Milk Of Magnesia 30 Ml Oral.Susp) 30 ml PO DAILY PRN PRN Reason: Constipation Melatonin (Melatonin 3 Mg Tablet) 6 mg PO BEDTIME PRN PRN Reason: sleep Metformin HCl (Metformin Hcl 1,000 Mg Tablet) 1,000 mg PO BID [facility] Last Admin: 07/15/24 08:24 Dose: 1,000 mg Nicotine (Nicotine 21 Mg Patch.Td24) 21 mg TRANSDERMA DAILY PRN PRN Reason: smoking cessation Olanzapine (Olanzapine 5 Mg Tablet) 5 mg PO TID PRN PRN Reason: agitation Last Admin: 07/12/24 15:18 Dose: 5 mg Quetiapine Fumarate (Quetiapine Fumarate 200 Mg Tablet) 200 mg PO BEDTIME [facility] Last Admin: 07/14/24 21:24 Dose: 200 mg Trazodone HCl (Trazodone Hcl 50 Mg Tablet) 50 mg PO BEDTIME MRX1 PRN PRN Reason: Insomnia Last Admin: 07/14/24 21:25 Dose: 50 mg Allergies Allergies Allergy/AdvReac Type Severity Reaction Status Date / Time codeine AdvReac Unknown Unknown Verified 07/03/24 13:44 Assessment & Plan Assessment & Plan (1) Schizophrenia, chronic condition: Status: Acute Code(s): F20.9 - Schizophrenia, unspecified (2) PTSD (post-traumatic stress disorder): Status: Acute Code(s): F43.10 - Post-traumatic stress disorder, unspecified (3) Opioid use disorder: Status: Acute Code(s): F11.90 - Opioid use, unspecified, uncomplicated (4) Diabetes: Status: Acute Code(s): E11.9 - Type 2 diabetes mellitus without complications (5) Frostbite: Status: Acute Code(s): T33.90XA - Superficial frostbite of unspecified sites, initial encounter (6) Homeless: Status: Acute Code(s): Z59.00 - Homelessness unspecified Plan Hospital course: 07/12 pt says he is alright and give thumbs up regarding mood. Says i put in a 3 day... He denies any SI or AVH at all. Says feet feeling better as well. Discussed tx; discussed Lantus and pt says he would like to learn to administer. 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 -wound consult ordered and wound care protocols entered. 07/13 patient remains saying he is in good mood, no SI, no AVH and no complaints; wound dressing changed daily; remaining on the unit for dispo planning 07/14 Increase Seroquel to 200 mg HS to address insomnia reported by pt. 07/15 DC 07/16 PLAN: Admit, 3 day notice 15 minute checks TDN signed today Collateral Contacts Diagnostics as needed Continue current regime Encourage milieu Discharge planning Reason for continued inpatient stay Substantial Risk for: stable for discharge Time Spent With Patient Time: Total time managing care of this patient today ____ minutes.
[2024-07-15 17:22] LABS: Glucose, Whole Blood 99 mg/dL (60-115)
--- NOTE | 2024-07-15 18:14 | PC.NURSE ---
Wound RN contacted on Sunday-she will see him tomorrow before he discharges. Updated pictures sent to her via [employer] text during dressing change on 07/14/24.
[2024-07-15 20:00] VITALS: BP 115/57; PULSE 72; RESP 16; TEMP 36.4; O2SAT 96
[2024-07-15 20:43] LABS: Glucose, Whole Blood 132 mg/dL (60-115)
[2024-07-15 21:07] VITALS: BP 115/57
[2024-07-15] MEDS: cloNIDine HCL 0.1 MG TABLET PO (21:07)
[2024-07-15] MEDS: Benztropine Mesylate 1 MG TABLET PO (21:07)
[2024-07-15] MEDS: QUEtiapine Fumarate 200 MG TABLET PO (21:07)
[2024-07-15] MEDS: Insulin Glargine,Hum.rec.anlog 100 UNIT/ML 10 ML VIAL 28 UNIT SUBCUT (21:08)
[2024-07-16 08:26] LABS: Glucose, Whole Blood 163 mg/dL (60-115)
[2024-07-16] MEDS: Insulin Lispro 100 UNIT/ML 3 ML VIAL SUBCUT (08:43)
[2024-07-16] MEDS: cloNIDine HCL 0.1 MG TABLET PO (08:43)
[2024-07-16] MEDS: HaloperidoL 5 MG TABLET 10 MG PO (08:43)
[2024-07-16] MEDS: glyBURIDE 5 MG TABLET PO (08:44)
[2024-07-16] MEDS: Acetaminophen 325 MG TABLET 650 MG PO (08:44)
[2024-07-16] MEDS: metFORMIN HCl 1,000 MG TABLET 1000 MG PO (08:44)
[2024-07-16 08:46] VITALS: BP 118/59; PULSE 61; RESP 16; TEMP 36.8; O2SAT 98
--- NOTE | 2024-07-16 10:31 | P.DS_ITS ---
DS: Providers Provider Date of Service: 07/16/24 Date of admission: 07/10/24 14:19 Date of discharge: 07/16/24 Primary care physician: Unknown Physician Admitting clinician: Susu Peace Attending physician on admission: Sharif Kim Consults: 07/11/24 13:38 Consult to Wound Care Routine Reason for consultation: bilateral foot wounds from frostbite Attending physician on discharge: Sharif Kim Discharging clinician: Susu Peace DS: Diagnosis Discharge Diagnosis (1) Schizophrenia, chronic condition: Status: Acute (2) PTSD (post-traumatic stress disorder): Status: Acute (3) Opioid use disorder: Status: Acute (4) Diabetes: Status: Acute (5) Frostbite: Status: Acute (6) Homeless: Status: Acute DS: Medications Discharge Medications Home Medications: Previous Rx's ?Medication ?Instructions ?Recorded acetaminophen 325 mg tablet 650 mg (2 x 325 mg) PO Q6H PRN 07/16/24 Headache/Pain, Scale 1-10 #0 tabs benztropine 1 mg tablet 1 mg PO BEDTIME #30 tabs 07/16/24 clonidine HCl 0.1 mg tablet 0.1 mg PO BID #60 tabs 07/16/24 glyburide 5 mg tablet 5 mg PO BIDWM #60 tabs 07/16/24 haloperidol 5 mg tablet 10 mg (2 x 5 mg) PO BID #60 tabs 07/16/24 insulin glargine 100 unit/mL (3 28 unit (0.28 mL) subcut QPM #15 mL 07/16/24 mL) subcutaneous pen (Lantus Solostar U-100 Insulin) melatonin 3 mg tablet 6 mg (2 x 3 mg) PO BEDTIME PRN 07/16/24 sleep #60 tabs metformin 1,000 mg tablet 1,000 mg PO BID #60 tabs 07/16/24 olanzapine 5 mg tablet 5 mg PO TID PRN agitation #15 tabs 07/16/24 quetiapine 200 mg tablet 200 mg PO BEDTIME #30 tabs 07/16/24 trazodone 50 mg tablet 50 mg PO BEDTIME MRX1 PRN Insomnia 07/16/24 #30 tabs Mental Status Exam Mental Status Exam Patient Appearance: Appropriate Patient Orientation: Person, Place, Time and Situation Level of Consciousness: Alert Patient Behavior: Appropriate, Talkative, Cooperative and Good Eye Contact Mood Description: Constricted Affect Description: Constricted Patient Cognition Impaired: No Ability to Follow Directions: Good Speech Pattern: Spontaneous Speech Memory Description: Intact Hallucinations: None Delusions: Not Present Perceptual Disturbances: Derealization Thought Process: Goal Oriented Thought Content: positive for Goal Oriented, positive for Preoccupation (with leaving to collect belongings), positive for Suicidal Ideation (denies) and positive for Homicidal Ideation (denies) Depressive Symptoms: Thoughts of /Suicide (denies) Judgement: Fair Data Data Completed and Pending Completed studies during hospitalization [Text1]: 07/10/24 07/11/24 07/11/24 20:35 12:55 17:09 POC Glucose 246 H 182 H 149 H 07/11/24 07/12/24 07/12/24 20:55 08:34 12:11 POC Glucose 242 H 190 H 251 H 07/12/24 07/12/24 07/13/24 17:01 21:00 07:52 POC Glucose 142 H 316 H 171 H 07/13/24 07/13/24 07/13/24 11:46 17:17 20:11 POC Glucose 175 H 115 187 H 07/14/24 07/14/24 07/14/24 11:43 17:19 20:55 POC Glucose 150 H 100 210 H 07/15/24 07/15/24 07/15/24 08:08 11:55 17:17 POC Glucose 155 H 154 H 99 07/15/24 07/16/24 20:38 08:22 POC Glucose 132 H 163 H DS: Summary Hospital Course Hospital Course: Admission to adult psychiatry for exacerbation of schizophrenia, PTSD, Opiate Use Disorder. Medications were evaluated and titrated with pt's agreement. Milieu therapy was available for pt during his admission. Pt signed a three day notice on admit and plans return travel to his half-way in [place] to re-establish his housing and his belongings after staying with a friend locally for a few days Status at Discharge Functional status at discharge: independent ambulation Overall status at discharge: patient is progressing back to baseline Time Spent with Patient Time attestation: Total time managing care of this patient today ____ minutes. Time spent: Less than 30 minutes Discharge Plan Discharge Anticipated Discharge Date/Time: 07/16/24 12:00 Patient Disposition: Nursing Home Discharge Diagnosis: Schizophrenia PTSD Opiate Use Disorder DM Frostbite Homelessness Referrals: [facility]) [Other] - 1 Week (Patient must self present to [facility] for diagnostic evaluation after discharge to be evaluated to establish with agency for psychiatric medication management and therapy services Sunday, Sunday, Sunday, , Sunday from 8:00 AM from 8:00 PM for ALL age group(s) Sunday, Sunday from 9:00 AM from 5:00 PM for ALL age group(s)) [facility] [Other] - 1 Week (Nursing Home information. Patient will return to previous half-way placement.) Physician,Unknown J [Primary Care Provider] - 1 Week Discharge Medications: New clonidine HCl 0.1 mg Tablet 0.1 mg PO BID Qty: 60 0RF Protocol: Hold for SBP< HOLD for SBP < : 90 acetaminophen 325 mg Tablet 650 mg PO Q6H PRN (Reason: Headache/Pain, Scale 1-10) Qty: 0 0RF haloperidol 5 mg Tablet 10 mg PO BID Qty: 60 0RF trazodone 50 mg Tablet 50 mg PO BEDTIME MRX1 PRN (Reason: Insomnia) Qty: 30 0RF glyburide 5 mg Tablet 5 mg PO BIDWM Qty: 60 0RF quetiapine 200 mg Tablet 200 mg PO BEDTIME Qty: 30 0RF olanzapine 5 mg Tablet 5 mg PO TID PRN (Reason: agitation) Qty: 15 0RF benztropine 1 mg Tablet 1 mg PO BEDTIME Qty: 30 0RF melatonin 3 mg Tablet 6 mg PO BEDTIME PRN (Reason: sleep) Qty: 60 0RF metformin 1,000 mg Tablet 1,000 mg PO BID Qty: 60 0RF insulin glargine [Lantus Solostar U-100 Insulin] 100 unit/mL (3 mL) insulin pen 28 unit subcut QPM Qty: 15 0RF Discontinued insulin lispro [Admelog U-100 Insulin lispro] 100 unit/mL Solution See Protocol subcut QIDACHS Qty: 10 0RF Protocol: Insulin Resistant 1st 24 hours Less than or equal to 110 ---- Give (units): 0 111 to 150 Give (units): 2 151 to 200 Give (units): 5 201 to 250 Give (units): 8 251 to 300 Give (units): 12 301 to 350 Give (units): 16 Greater than 350 Give (units): 20 Call MD if Blood Glucose > : 350 glyburide 5 mg Tablet 5 mg PO BIDWM Qty: 60 0RF insulin glargine [Lantus U-100 Insulin] 100 unit/mL Solution 28 unit subcut BEDTIME Qty: 10 0RF acetaminophen 500 mg capsule 500 mg PO Q6H PRN (Reason: pain) 14 Days Qty: 28 0RF hydroxyzine HCl 25 mg Tablet 25 mg PO Q6H PRN (Reason: Anxiety) 30 Days Qty: 60 0RF clonidine HCl 0.1 mg Tablet 0.1 mg PO BID 30 Days Qty: 60 0RF quetiapine 100 mg Tablet 100 mg PO BEDTIME 30 Days Qty: 30 0RF haloperidol 10 mg tablet 10 mg PO BID 30 Days Qty: 60 0RF benztropine 1 mg Tablet 1 mg PO BEDTIME 30 Days Qty: 30 0RF metformin 1,000 mg tablet 1,000 mg PO BID 30 Days Qty: 60 0RF melatonin 5 mg tablet 5 mg PO BEDTIME PRN (Reason: sleep) 30 Days Qty: 30 0RF sulfamethoxazole-trimethoprim [Bactrim DS] 800-160 mg tablet 1 tab PO Q12H Discharge Orders: Discharge Order (Routine); Ordered 07/16/24 Ordered By: Susu Peace Diet: Advance to usual diet Activity on Discharge: As tolerated Stand Alone Forms: Patient Portal Discharge page, Community Support Print Language: Ukrainian Care Plan Goals: Abstinence from substances Mood and Behavioral Stabilization Health Concerns: Abstinence from substances Mood and Behavioral Stabilization Plan of Treatment: Attend scheduled appointments Take medications as directed Assessment: Pt discharges on a three day notice of intent No SI,HI,AH,VH Plan of care and meds reviewed with pt who agrees with his discharge plan. Discharge Date/Time: 07/16/24 10:59
--- NOTE | 2024-07-16 10:51 | HO.WOUND ---
Wound Consult: Initial 39yr old?male admitted to [facility] to the Behavioral Health Unit on 07/10/24 - See progress notes and H&P for detailed history.? This patient was seen prior to their transisiotn to the [facility] unit while admitted inpatient. Wound consult placed for Bilateral Feet Frostbite on previous admissions.? Patient agreeable to assessment and photo documentation.? Patient reports he is set for d/c to his sisters today, he reports he will have a room to stay in access to a shower, access to a sand drier to dry his clothes particularly his socks and he reports he has shoes without holes in the soles. We verbally discussed the improved appearance of his feet and at this time amputation does not seem to be needed. He was advised to keep his follow up appointments and to keep his feet dry and clean, to remove his shoes daily and allow them to be without shoes while he sleeps. He reports understanding. Teach back provided by the patient. He was educated on the benefits of limiting standing and ambulation and keeping the wounds dry. At this time the wound continues to improve and demarcate viable tissue - recommend continued topical treatment for limb salvage. Right Foot Right Plantar Foot Right Webspace with maceration Left Foot Left Plantar foot Bilateral Feet Etiology: ?Frostbite Wound Bed: Overall improving / evolving wound beds in various stages of healing. The left toes are warm and returning to normal pigmentation no open tissue noted at this time. +PP, no swelling noted and denies neuropathy today. Right foot is overall improving no concern for abcscess and need for amputation at this time. +PP, warm to touch no longer cold, and reports feeling and sensation aside from great toe - pain at times. The left plantar surface has dry eschar noted with maceration noted in the web spaces. The anterior great toe nail was removed easily with cleansing - revealing some slough adherent to the nail bed - nail removal will infact benefit the healing process as it appears the nail was not attached and was trapping moisture under the nail and leaking into darío webspace. Wound will heal best at this time to dry out and allow autolytic debridement and healing to occur. Recommendations: 1. Provide adequate and supplemental nutrition.? 2. When applicable maintain blood glucose levels per Providers order. 3. Elevate lower legs on pillows, limit standing and walking while edema is present. 4. Bilateral Foot and Toes - Cleanse with Betadine allow to dry. Cover open wounds beds only not dry black necrotic wounds beds with Durafiber AG, Cover with Dry gauze, ABD pad and Wrap. Change every other day or every three days or when wet with water, sweat or significant drainage. Elevate legs on pillows limit walking and standing while edema is present. Re-consult wound care Nurse for wound deterioration or wound changes. Left Foot Left Plantar toes Right Anterior foot Right Plantar foot Photos from last admission. Right Foot Left Foot
== END 2024-07-16 10:59 | disposition home or self-care (01) | DRG 750 ==
PROVIDERS: Admitting Provider Psychiatry & Neurology Psychiatry; Visit Provider Clinical Nurse Specialist Psychiatric/Mental Health, Adult
DX: F20.9 Schizophrenia, unspecified (principal); E11.9 Type 2 diabetes mellitus without complications; F43.10 Post-traumatic stress disorder, unspecified; T33.822A Superficial frostbite of left foot, initial encounter; T33.821A Superficial frostbite of right foot, initial encounter; F11.90 Opioid use, unspecified, uncomplicated; X31.XXXA Exposure to excessive natural cold, initial encounter; Z59.02 Unsheltered homelessness; Z79.4 Long term (current) use of insulin; Z79.85 Long-term (current) use of injectable non-insulin antidiabetic drugs; Z79.899 Other long term (current) drug therapy
CPT/HCPCS: 82947

== ENCOUNTER → 2024-07-10 14:19 | Outpatient (BNV) | payer OTHER, SELFPAY | PROVIDERS: Admitting Provider Psychiatry & Neurology Psychiatry; Visit Provider Psychiatry & Neurology Psychiatry | DX: F20.9 Schizophrenia, unspecified (principal); F43.10 Post-traumatic stress disorder, unspecified; F11.90 Opioid use, unspecified, uncomplicated; E11.9 Type 2 diabetes mellitus without complications; T33.90XA Superficial frostbite of unspecified sites, initial encounter; Z59.00 Homelessness unspecified | CPT/HCPCS: 99232 ==

== ENCOUNTER 2024-07-21 10:28 | Inpatient (IN) | payer OTHER, SELFPAY ==
--- NOTE | 2024-07-21 | ECG_ITS ---
Test Reason : MED CLEARANCE Blood Pressure : */* mmHG Vent. Rate : 82 BPM Atrial Rate : 82 BPM P-R Int : 144 ms QRS Dur : 92 ms QT Int : 386 ms P-R-T Axes : 37 26 35 degrees QTcB Int : 450 ms Normal sinus rhythm Normal ECG No previous ECGs available Referred By: Dk Del Rio Electronically Signed By: MICAELA ENGLISH MD
[2024-07-21 10:31] VITALS: BP 122/70; PULSE 97; O2SAT 95
[2024-07-21 10:51] VITALS: BP 132/76; PULSE 80; RESP 18; TEMP 37.2; O2SAT 98; BMI 34.9
--- NOTE | 2024-07-21 11:00 | ED.PSYCH ---
HPI - Psych General Chief Complaint: Psychiatric Symptoms Stated Complaint: PT STS, SI,PLAN TO CHOKE SELF OUT,CRACK WITHDRAWAL Time Seen by Provider: 07/21/24 10:55 Source: patient Limitations: no limitations History of Present Illness HPI Narrative: This is a 39 years old the patient brought in by ambulance because of SI. Patient as history of schizophrenia, PTSD, opiate use disorder. He was recently hospitalized in the psychiatric unit and discharged on 07/16/2024 MD complaint: suicidal ideation Onset (ago): day(s) (1) Duration: constant History of same: Yes Relieving factors: none Exacerbating factors: none Associated psychiatric symptoms: depression and suicidal ideation Related Data Previous Rx's ?Medication ?Instructions ?Recorded acetaminophen 325 mg tablet 650 mg (2 x 325 mg) PO Q6H PRN 07/16/24 Headache/Pain, Scale 1-10 #0 tabs benztropine 1 mg tablet 1 mg PO BEDTIME #30 tabs 07/16/24 clonidine HCl 0.1 mg tablet 0.1 mg PO BID #60 tabs 07/16/24 glyburide 5 mg tablet 5 mg PO BIDWM #60 tabs 07/16/24 haloperidol 5 mg tablet 10 mg (2 x 5 mg) PO BID #60 tabs 07/16/24 insulin glargine 100 unit/mL (3 28 unit (0.28 mL) subcut QPM #15 mL 07/16/24 mL) subcutaneous pen (Lantus Solostar U-100 Insulin) melatonin 3 mg tablet 6 mg (2 x 3 mg) PO BEDTIME PRN 07/16/24 sleep #60 tabs metformin 1,000 mg tablet 1,000 mg PO BID #60 tabs 07/16/24 olanzapine 5 mg tablet 5 mg PO TID PRN agitation #15 tabs 07/16/24 quetiapine 200 mg tablet 200 mg PO BEDTIME #30 tabs 07/16/24 trazodone 50 mg tablet 50 mg PO BEDTIME MRX1 PRN Insomnia 07/16/24 #30 tabs Allergies Allergy/AdvReac Type Severity Reaction Status Date / Time codeine AdvReac Unknown Unknown Verified 07/21/24 10:51 Review of Systems Constitutional: Constitutional: Reports no additional constitutional complaints Cardiovascular: Cardiovascular: Reports no additional cardiovascular complaints Gastrointestinal: Gastrointestinal: Reports no additional gastrointestinal complaints Psychiatric: Psychiatric: Reports depression PMFSH Past Medical History [facility] Narrative: Schizoaffective disorder diabetes substance abuse Medical History Homeless Sleep apnea Medical clearance for psychiatric admission Routine history and physical examination of adult Cardiomyopathy Cocaine abuse Cannabis abuse Diabetes Schizophrenia, chronic condition Surgical History No pertinent past surgical history Family History Family History Other No family history of coronary artery disease Social History Social History Household Members: None Housing: Homeless Do you presently have visiting nurse or other home services: No Alcohol intake: current Alcohol intake frequency: 0-2 drinks per day Comment: 1:1 Patient Tobacco Use Status: Former Tobacco user Tobacco use type: Cigarette Cigarette Packs Per Day: 1 Cigarettes Per Day: 1 Smoked in Last 30 Days: No e-Cigarette/Vaping Use: Never Used Use of substances other than those prescribed or required for medical reasons: Yes Substance Use Type: Crack/Cocaine Substance Use Frequency: Daily Advance Directives: No Advance Directives Information Provided: No Do you have a plan to hurt others: No Plan service: No Sexual orientation: Straight/Heterosexual Physical Exam Vital Signs: Vital Signs: Last Vital Signs Temp 98.8 F 07/21/24 14:28 Pulse 89 07/21/24 14:28 Resp 18 07/21/24 14:28 BP 100/63 07/21/24 14:28 Pulse Ox 98 07/21/24 14:28 O2 Del Method Room Air 07/21/24 14:28 BMI result Body Mass Index 34.9 Patient looks well not toxic appearing Const: General: cooperative Nutritional Appearance: well nourished Orientation/consciousness: patient oriented x3 Limitations: no limitations HEENT: Head: Yes normal to inspection Ears: hearing grossly normal bilaterally General nose exam: Normal external nose present Face and sinus: Yes normal facial exam Mouth: Normal oral and palatal mucosa present Throat: Yes posterior oropharynx normal Neck: Neck: Yes normal visual inspection and Yes full ROM Chest: Chest palpation & inspection: normal inspection of the chest Resp: Effort & Inspection: normal respiratory effort Auscultation: clear to auscultation bilaterally Cardio: Jugular venous distension: no JVD Rate: regular rate Rhythm: regular rhythm GI: Inspection: Yes normal to inspection Palpation (GI): Soft to palpation, not firm and no pulsatile masses Percussion: Yes normal to percussion Auscultation: normal bowel sounds Skin: General skin exam: no rashes or lesions noted and elasticity normal Lesions: no lesions Rashes: no rashes Neuro: General: patient oriented x3 Psych: Mental Status: mental status grossly normal Affect: Sad affect present Attitude: cooperative Course Reevaluation(s) Reevaluation #1: off shift now signed out to Dr Kline Time: 16:35 Medications Administered Generic Name Dose Route Start Last Admin Trade Name Freq PRN Reason Stop Dose Admin Clonidine HCl 0.1 mg 07/21/24 12:45 07/21/24 13:49 Clonidine Hcl 0.1 Mg Tablet PO 0.1 mg BID ASHLEY Administration Protocol Haloperidol 10 mg 07/21/24 12:45 07/21/24 13:49 Haloperidol 5 Mg Tablet PO 10 mg BID ASHLEY Administration Insulin Glargine 28 unit 07/21/24 12:45 07/21/24 13:49 Insulin Glargine,Hum.Rec.Anlog 100 Unit/Ml 10 Ml Vial SUBCUT 28 unit BEDTIME ASHLEY Administration Medical Decision Making Medical Decision Making [facility] Narrative: Patient presented with depression and SI we will obtain baseline blood work, we will get a psych eval Differential Diagnosis Differential Diagnoses: The differential diagnosis associated with the presentation includes Depression/SI/substance abuse Lab Data 07/21/24 11:18 07/21/24 11:18 Labs: Lab Results 07/21/24 07/21/24 07/21/24 Range/Units 11:18 11:18 11:18 WBC 6.6 (4.8-10.8) X10*3/uL RBC 4.15 L (4.60-5.80) X10*6/uL Hgb 10.6 L (14.0-18.0) g/dl Hct 32.7 L (42.0-52.0) % MCV 78.8 L (80.0-98.0) fL MCH 25.5 L (27.0-33.0) pg MCHC 32.4 (31.0-36.0) g/dl RDW 15.8 (11.0-16.0) % Plt Count 220 D (160-400) X10*3/uL MPV 9.9 (9.4-12.4) fL Immature Gran % (Auto) 0.2 (0.0-0.4) % Neut % (Auto) 63.2 (45-73) % Lymph % (Auto) 27.3 (20-40) % Maury % (Auto) 8.0 (2-11) % Eos % (Auto) 0.8 (0-4) % Baso % (Auto) 0.5 (0-2) % Lymph # (Auto) 1.8 (1.2-4.9) X10*3/uL Maury # (Auto) 0.5 (0.1-1.2) X10*3/uL Eos # (Auto) 0.1 (0.0-0.4) X10*3/uL Baso # (Auto) 0.0 (0.0-0.2) X10*3/uL Abs Immat Gran (auto) 0.01 (0.00-0.03) X10*3/uL Absolute Neuts (auto) 4.2 (2.0-8.3) x10*3/uL Absolute Nucleated RBC 0.000 (0.0-0.012) X10*3/uL Nucleated RBC % (auto) 0.0 (0.0-0.2) /100WBC Sodium 138 (135-145) mmol/L Potassium 4.0 (3.3-5.1) mmol/L Chloride 103 (96-108) mmol/L Carbon Dioxide 26 (22-29) mmol/L Anion Gap 13 (12-20) BUN 24 H (9-16) mg/dL Creatinine 1.28 (0.5-1.4) mg/dL Estim Creat Clear Calc 99.2 Estimated GFR > 60 Random Glucose 346 H (60-115) mg/dL Calcium 8.7 (8.4-10.2) mg/dL Magnesium 1.8 (1.6-2.6) mg/dL Total Bilirubin 0.2 0.1 (0.0-1.0) mg/dL Direct Bilirubin < 0.2 (0.0-0.5) mg/dL AST 16 15 (5-37) U/L ALT 25 (0-40) U/L Alkaline Phosphatase (39-117) U/L Total Protein (6.5-8.0) g/dL Albumin (3.5-5.0) g/dL Salicylates (15-30) mg/dL Acetaminophen (<30) mcg/mL Ethyl Alcohol mg/dL 07/21/24 07/21/24 07/21/24 Range/Units 11:18 11:18 11:18 WBC (4.8-10.8) X10*3/uL RBC (4.60-5.80) X10*6/uL Hgb (14.0-18.0) g/dl Hct (42.0-52.0) % MCV (80.0-98.0) fL MCH (27.0-33.0) pg MCHC (31.0-36.0) g/dl RDW (11.0-16.0) % Plt Count (160-400) X10*3/uL MPV (9.4-12.4) fL Immature Gran % (Auto) (0.0-0.4) % Neut % (Auto) (45-73) % Lymph % (Auto) (20-40) % Maury % (Auto) (2-11) % Eos % (Auto) (0-4) % Baso % (Auto) (0-2) % Lymph # (Auto) (1.2-4.9) X10*3/uL Maury # (Auto) (0.1-1.2) X10*3/uL Eos # (Auto) (0.0-0.4) X10*3/uL Baso # (Auto) (0.0-0.2) X10*3/uL Abs Immat Gran (auto) (0.00-0.03) X10*3/uL Absolute Neuts (auto) (2.0-8.3) x10*3/uL Absolute Nucleated RBC (0.0-0.012) X10*3/uL Nucleated RBC % (auto) (0.0-0.2) /100WBC Sodium (135-145) mmol/L Potassium (3.3-5.1) mmol/L Chloride (96-108) mmol/L Carbon Dioxide (22-29) mmol/L Anion Gap (12-20) BUN (9-16) mg/dL Creatinine (0.5-1.4) mg/dL Estim Creat Clear Calc Estimated GFR Random Glucose (60-115) mg/dL Calcium (8.4-10.2) mg/dL Magnesium (1.6-2.6) mg/dL Total Bilirubin (0.0-1.0) mg/dL Direct Bilirubin (0.0-0.5) mg/dL AST (5-37) U/L ALT 17 (0-40) U/L Alkaline Phosphatase 61 61 (39-117) U/L Total Protein 7.6 7.5 (6.5-8.0) g/dL Albumin 3.8 (3.5-5.0) g/dL Salicylates (15-30) mg/dL Acetaminophen (<30) mcg/mL Ethyl Alcohol mg/dL 07/21/24 Range/Units 11:18 WBC (4.8-10.8) X10*3/uL RBC (4.60-5.80) X10*6/uL Hgb (14.0-18.0) g/dl Hct (42.0-52.0) % MCV (80.0-98.0) fL MCH (27.0-33.0) pg MCHC (31.0-36.0) g/dl RDW (11.0-16.0) % Plt Count (160-400) X10*3/uL MPV (9.4-12.4) fL Immature Gran % (Auto) (0.0-0.4) % Neut % (Auto) (45-73) % Lymph % (Auto) (20-40) % Maury % (Auto) (2-11) % Eos % (Auto) (0-4) % Baso % (Auto) (0-2) % Lymph # (Auto) (1.2-4.9) X10*3/uL Maury # (Auto) (0.1-1.2) X10*3/uL Eos # (Auto) (0.0-0.4) X10*3/uL Baso # (Auto) (0.0-0.2) X10*3/uL Abs Immat Gran (auto) (0.00-0.03) X10*3/uL Absolute Neuts (auto) (2.0-8.3) x10*3/uL Absolute Nucleated RBC (0.0-0.012) X10*3/uL Nucleated RBC % (auto) (0.0-0.2) /100WBC Sodium (135-145) mmol/L Potassium (3.3-5.1) mmol/L Chloride (96-108) mmol/L Carbon Dioxide (22-29) mmol/L Anion Gap (12-20) BUN (9-16) mg/dL Creatinine (0.5-1.4) mg/dL Estim Creat Clear Calc Estimated GFR Random Glucose (60-115) mg/dL Calcium (8.4-10.2) mg/dL Magnesium (1.6-2.6) mg/dL Total Bilirubin (0.0-1.0) mg/dL Direct Bilirubin (0.0-0.5) mg/dL AST (5-37) U/L ALT (0-40) U/L Alkaline Phosphatase (39-117) U/L Total Protein (6.5-8.0) g/dL Albumin 3.8 (3.5-5.0) g/dL Salicylates < 5.0 L (15-30) mg/dL Acetaminophen < 3 (<30) mcg/mL Ethyl Alcohol < 10 mg/dL Discharge Plan Discharge Clinical Impression: Schizophrenia, chronic condition Prescriptions: No Action clonidine HCl 0.1 mg Tablet 0.1 mg PO BID Qty: 60 0RF Protocol: Hold for SBP< HOLD for SBP < : 90 acetaminophen 325 mg Tablet 650 mg PO Q6H PRN (Reason: Headache/Pain, Scale 1-10) Qty: 0 0RF haloperidol 5 mg Tablet 10 mg PO BID Qty: 60 0RF trazodone 50 mg Tablet 50 mg PO BEDTIME MRX1 PRN (Reason: Insomnia) Qty: 30 0RF glyburide 5 mg Tablet 5 mg PO BIDWM Qty: 60 0RF quetiapine 200 mg Tablet 200 mg PO BEDTIME Qty: 30 0RF olanzapine 5 mg Tablet 5 mg PO TID PRN (Reason: agitation) Qty: 15 0RF benztropine 1 mg Tablet 1 mg PO BEDTIME Qty: 30 0RF melatonin 3 mg Tablet 6 mg PO BEDTIME PRN (Reason: sleep) Qty: 60 0RF metformin 1,000 mg Tablet 1,000 mg PO BID Qty: 60 0RF insulin glargine [Lantus Solostar U-100 Insulin] 100 unit/mL (3 mL) insulin pen 28 unit subcut QPM Qty: 15 0RF Interventions: Milfay-Suicide Risk Severity Scale Last Done: 07/21/24 14:29 Print Language: Georgian
[2024-07-21 11:23] LABS: Basophils Percent Auto 0.5 % (0-2); Eosinophils Absolute Auto 0.1 X10*3/uL (0.0-0.4); Eosinophils Percent Auto 0.8 % (0-4); Hematocrit 32.7 % (42.0-52.0); Hemoglobin 10.6 g/dl (14.0-18.0); Imm Gran Abs Auto 0.01 X10*3/uL (0.00-0.03); Imm Gran Pct Auto 0.2 % (0.0-0.4); Lymphocytes Absolute Auto 1.8 X10*3/uL (1.2-4.9); Lymphocytes Percent Auto 27.3 % (20-40); MANUAL DIFF FLAG NO; Mean Corpuscular HGB Conc 32.4 g/dl (31.0-36.0); Mean Corpuscular Hemoglobin 25.5 pg (27.0-33.0); Mean Corpuscular Volume 78.8 fL (80.0-98.0); Mean Platelet Volume 9.9 fL (9.4-12.4); Monocytes Absolute Auto 0.5 X10*3/uL (0.1-1.2); Neutrophils Absolute Auto 4.2 x10*3/uL (2.0-8.3); Neutrophils Percent Auto 63.2 % (45-73); Platelet Count 220 X10*3/uL (160-400); Red Blood Count 4.15 X10*6/uL (4.60-5.80); Red Cell Distribution Width 15.8 % (11.0-16.0); White Blood Count 6.6 X10*3/uL (4.8-10.8)
--- NOTE | 2024-07-21 11:25 | PC.NURSE ---
misbah from home after family called PD d/t SI w/ plan to choke himself to end his life. pt reports previous attempts. denies HI. pt reports hx substance use - last used unknown amount of crack around 2129 last night. pt denies hx IVDU. pt reports frostbite on feet bilaterally. upon ED arrival - pt a&ox4. vss and up to date. CIWA/COWS updated in chart. labs obtained/sent to lab. pt unable to provide urine sample at this time. pt changed over by security - belongings list created. on RA w/o difficulty. no sob/wob noted. respirations even/unlabored. 1:1 sitter present. plan of care ongoing.
--- NOTE | 2024-07-21 11:34 | PC.NURSE ---
medication obtained from pt's personal belongings during change analyst w/ security. verification form filled out/brought to pharmacy. medication reconciliation completed. aware.
[2024-07-21 11:40] LABS: Acetaminophen LAB < 3 mcg/mL (<30); Alanine Aminotransferase 17 U/L (0-40); Albumin Level 3.8 g/dL (3.5-5.0); Alkaline Phosphatase 61 U/L (39-117); Aspartate Amino Transferase 15 U/L (5-37); Bilirubin Direct < 0.2 mg/dL (0.0-0.5); Bilirubin Total 0.1 mg/dL (0.0-1.0); Magnesium 1.8 mg/dL (1.6-2.6); Salicylate < 5.0 mg/dL (15-30); Total Protein 7.5 g/dL (6.5-8.0)
[2024-07-21 11:44] LABS: Alanine Aminotransferase 25 U/L (0-40); Albumin Level 3.8 g/dL (3.5-5.0); Alkaline Phosphatase 61 U/L (39-117); Anion Gap 13 (12-20); Aspartate Amino Transferase 16 U/L (5-37); Bilirubin Total 0.2 mg/dL (0.0-1.0); Blood Urea Nitrogen 24 mg/dL (9-16); Calcium 8.7 mg/dL (8.4-10.2); Carbon Dioxide 26 mmol/L (22-29); Chloride 103 mmol/L (96-108); Creatinine Clr Calc Pharmacy 99.2; Estimated Glomerular Filt Rate > 60; Ethanol < 10 mg/dL; Glucose Random 346 mg/dL (60-115); Sodium 138 mmol/L (135-145); Total Protein 7.6 g/dL (6.5-8.0)
--- OUTSIDE RECORDS SUMMARY | 2024-07-21 13:03 | XMS_ITS | Referral Summary ---
Author Organization [facility] Address [address] [id number] Care Team Providers Care Train Starter Name Role Phone betty Dayne Primary Care Provider [phone] Encounters Date Type Department Care Team Description 06/22/2024 7:39 AM EST - 06/25/2024 9:01 PM [facility] Hospital Encounter [facility] Emergency Department [address] [place] [address] Sofía Hardy MD Darling, Chad E, MD [...] drug rehab program before being discharged to [facility], more recently he is homeless [...] drug rehab program before being discharged to [facility], more recently he is homeless [...] fluffs between toes and loose Kerlix wraps -dry can tender consulted Assessment & Plan (06/23/2024 2:36 PM [...] disorder (alcohol, cocaine, opioids), who presented to [facility] ED on 06/22/2024 after being [...] disorder (alcohol, cocaine, opioids), who presented to [facility] ED on 06/22/2024 after being [...] Not on file Procedures * Due to [place] state law, [...] - 348 U/L 06/25/2024 8:35 PM EST [facility] Blood Structure of peripheral vein / Unknown Venipuncture / Unknown 06/25/2024 7:41 PM EST 06/25/2024 8:05 PM EST us Quintin Ng MD LAB BLOOD ORDERABLES Final Res ult Performing Organization Address [place]/ZIP Co de Phone Number [facility] [address] [place] [address], * (ABNORMAL) POCT Glucose, interfaced (06/25/2024 5:00 PM EST) Only the most recent of11 resultswithin the time period is included. Glucose, POCT 312(H) 70 - 99 mg/dL 06/25/2024 5:01 PM EST [facility] [employer], POC Comment: The manager transmission has not determined the efficacy of this test in Critically ill patients. ??[facility] defines Critically ill patients for the [...] DEVICE Fin al Result Performing Organization Address City/[facility]/ZIP Co de Phone Number [facility]ITALPromach[facility]AD[facility], POC [address] [place] [address], * (ABNORMAL) CBC Auto Differential (06/25/2024 6:41 [...] <0.01 <0.01 10*3/uL 06/25/2024 7:36 AM EST [facility] Blood Structure of peripheral vein / Unknown Venipuncture / Unknown 06/25/2024 6:41 AM EST 06/25/2024 7:29 AM EST us Alex Brand MD LAB BLOOD ORDERABLES Fin al Result [facility] [address] [place] [address], * Phosphorus (06/25/2024 6:41 AM EST) Only the most recent of3 resultswithin the time period is included. Phosphorus 3.0 2.5 - 4.5 mg/dL 06/25/2024 8:07 AM EST [facility] Blood Structure of peripheral vein / Unknown Venipuncture / Unknown 06/25/2024 6:41 AM EST 06/25/2024 7:29 AM EST Alex Brand MD LAB BLOOD ORDERABLES Fin al Result Performing Organization Address City/[facility] Co de Phone Number [employer] [facility] [address] [place] [address], [place] * Magnesium (06/25/2024 6:41 AM EST) Only the most recent of3 resultswithin the time period is included. MG 1.8 1.6 - 2.4 mg/dL 06/25/2024 8:07 AM EST [facility] Blood Structure of peripheral vein / Unknown Venipuncture / Unknown 06/25/2024 6:41 AM EST 06/25/2024 7:29 AM EST Alex Brand MD LAB BLOOD ORDERABLES Fin al Result [facility] [address] [place] [address], * (ABNORMAL) Basic metabolic panel (06/25/2024 6:41 AM EST) Only the most recent of4 resultswithin the time period is included. NA 140 135 - 145 mmol/L 06/25/2024 8:07 AM EST [facility] K 4.1 3.5 - 5.3 mmol/L 06/25/2024 8:07 AM EST [facility] Cl 103 98 - 107 mmol/L 06/25/2024 8:07 AM EST [employer] [facility] CO2 26 22 - 32 mmol/L 06/25/2024 8:07 AM EST [facility] BUN 11 7 - 23 mg/dL 06/25/2024 8:07 AM EST [employer] [facility] Creatinine 0.97 0.60 - 1.30 mg/dL 06/25/2024 8:07 AM EST [employer] Glucose 210(H) 65 - 99 mg/dL 06/25/2024 8:07 AM EST [facility] Calcium 9.2 8.6 - 10.5 mg/dL 06/25/2024 8:07 AM EST [facility] Anion Gap 11 5 - 15 06/25/2024 8:07 AM EST [facility] eGFR >90 >=60 mL/min/1. 73m2 06/25/2024 8:07 AM EST [facility] Comment:The estimated glomer ular [...] MD LAB BLOOD ORDERABLES Fin al Result [facility] [address] [place] [address], [place] * UA [place] Top (06/23/2024 4:20 PM EST) Extra Tube Hold for add-ons. 06/23/2024 9:05 PM EST [facility]col[facility] Se[facility] Comment:Auto resulted. Urine Urine specimen collection, clean catch / Unknown 06/23/2024 4:20 PM EST 06/23/2024 4:20 PM EST Quintin Ng MD LAB BLOOD ORDERABLES Final Res ult [facility] SERVICESEcoloCapADENA [facility] [employer] [facility] [address] [place] [address], [place] * Methadone Screen w/Confirmation, Urine (06/23/2024 4:11 PM EST) Methadone Metabolite Screen, Urine NEGATIVE <100 ng/mL 06/24/2024 5:13 AM EST [employer] Comment: See Note 1 Urine Voided urine specimen / Unknown Non-Blood Collection / Unknown 06/23/2024 4:11 PM EST 06/23/2024 4:18 PM EST Narrative [facility] - 06/24/2024 5:13 AM EST [facility] Received Date:[id number] Quintin Ng MD LAB URINE ORDERABLES Final Res ult [facility] [address] [facility] [address]rd Floor, [place] [address], [place] [phone] [facility] [address] [facility] 3rd Floor, [place] [address], [place] [phone] * Morphine and Codeine Confirmation, Urine (06/23/2024 4:11 PM EST) Codeine, Urine NEGATIVE <50 ng/mL 06/25/2024 9:46 AM EST [employer] Comment: See Note 1 Hydrocodone, Urine NEGATIVE <50 ng/mL 06/25/2024 9:[address] [facility] Comment: See Note 1 Hydromorphone, Urine NEGATIVE <50 ng/mL 06/25/2024 9:46 AM EST [employer] Comment: See Note 1 Morphine, Urine NEGATIVE <50 ng/mL 9:[address] [facility] Comment: See Note 1 Norhydrocodone, Urine NEGATIVE <50 ng/mL 06/25/2024 9:[address] [facility] Comment: See Note 1 See Note 2 Note 1 This test was developed and its analytical performance characteristics have been determined by [employer]. It has not been cleared or approved [...] interpreting these drug results, please contact a [employer] Toxicology Specialist: [phone] ( ), M-F, 8am-6pm EST. Urine Voided urine specimen / Unknown Non-Blood Collection / Unknown 06/23/2024 4:11 PM EST 06/23/2024 4:18 PM EST Narrative [facility] - 06/25/2024 9:46 AM EST [facility] Received Date: Quintin Ng MD LAB URINE ORDERABLES Final Res ult [facility] [address] [facility] [address]rd Floor, [place] [address], [place] [phone] [facility] [address], [place] [address], [place] [phone] * Barbiturate Screen, Urine (06/23/2024 4:11 PM EST) Barbiturate Screen, Urine Negative Negative 06/23/2024 5:19 PM EST [facility] Comment: Detection limit of [...] MD LAB URINE ORDERABLES Final Res ult [facility] [address] [place] [address], * Propoxyphene Screen, Urine (06/23/2024 4:11 PM EST) Propoxyphene Screen, Urine NEGATIVE <300 ng/mL 06/24/2024 5:13 AM EST [employer] Comment: See Note 2 Note 1 This drug testing is for medical treatment only. ?? Analysis was performed as non-forensic testing and these results should be used only by healthcare providers to render diagnosis or treatment, or to monitor progress of medical conditions. For assistance with interpreting these drug results, please contact a [employer] Toxicology Specialist: [phone] ( ), M-F, 8am-6pm EST. Note [...] interpreting these drug results, please contact a [employer] Toxicology Specialist: [phone] ( ), M-F, 8am-6pm EST. Urine Voided urine specimen / Unknown Non-Blood Collection / Unknown 06/23/2024 4:11 PM EST 06/23/2024 4:18 PM EST Narrative [facility] - 06/24/2024 5:13 AM EST [facility] Received Date: Quintin Ng MD LAB URINE ORDERABLES Final Res ult [facility] [address] [facility] [address]rd Floor, [place] [address], [place] [phone] [employer] [facility] [address] [facility] 3rd Floor, [place] [address], [place] [phone] * Marijuana Qualitative Screen, Urine (06/23/2024 4:11 PM EST) Marijuana Screen, Urine Negative Negative 06/23/2024 5:19 PM EST [facility] Comment: Detection limit of 50 ng/mL of 47-Pst-dened-2-JVF-8-carboxylic acid. Drug results are to be used only for medical purposes. ??Unconfirmed screening results must not be used for non-medical purposes. Urine Voided urine specimen / Unknown Non-Blood Collection / Unknown 06/23/2024 4:11 PM EST 06/23/2024 4:18 PM EST Quintin Ng MD LAB URINE ORDERABLES Final Res ult Performing Organization Address City/[facility]/ZIP Co de Phone Number [facility]IC[facility] [address] [place] [address], * Phencyclidine (PCP) Screen, Urine (06/23/2024 4:11 PM EST) Phencyclidine Screen, Urine NEGATIVE <25 ng/mL 06/24/2024 5:13 AM EST [employer] [facility] Comment: See Note 2 Urine Voided urine specimen / Unknown Non-Blood Collection / Unknown 06/23/2024 4:11 PM EST 06/23/2024 4:18 PM EST Narrative [facility] - 06/24/2024 5:13 AM EST [facility] Received Date: Quintin Ng MD LAB URINE ORDERABLES Final Res ult [facility] [address] [facility] [address]rd Floor, [place] [address], [place] [phone] [employer] [facility] [address], [place] [address], [place] [phone] * (ABNORMAL) Cocaine Qualitative, Urine (06/23/2024 4:11 PM EST) Cocaine Metabolite Screen, Urine Presumptive Positive(A) Negative 06/23/2024 5:19 PM EST [facility] Comment: Detection limit of 300 ng/mL of Benzoylecgonine. Drug results are to be used only for medical purposes. ??Unconfirmed screening results must not be used for non-medical purposes. Urine Voided urine specimen / Unknown Non-Blood Collection / Unknown 06/23/2024 4:11 PM EST 06/23/2024 4:18 PM EST Quintin Ng MD LAB URINE ORDERABLES Final Res ult Performing Organization Address [place] de Phone Number [facility] [address] [place] [address], [place] * Benzodiazepine Qualitative Screen, Urine (06/23/2024 4:11 PM EST) Benzodiazepine Screen, Urine Negative Negative 06/23/2024 5:19 PM EST [facility] Comment: Detection limit of 200 ng/mL of Nordiazepam. Drug results are to be used only for medical purposes. ??Unconfirmed screening results must not be used for non-medical purposes. Urine Voided urine specimen / Unknown Non-Blood Collection / Unknown 06/23/2024 4:11 PM EST 06/23/2024 4:18 PM EST Quintin Ng MD LAB URINE ORDERABLES Final Res ult Performing Organization Address City/[facility] Co de Phone Number [facility] SERVICESEcoloCapAD[facility] [employer] [facility] [address] [place] [address], * Amphetamine Qualitative, Urine (06/23/2024 4:11 PM EST) Pathologist [facility] Amphetamine Screen, Urine Negative Negative 06/23/2024 5:19 PM EST [facility]EcoloCapAD[facility] [employer] [facility] Comment: Detection limit of 1000 ng/mL of d-Methamphetamine. Drug results are to be used only for medical purposes. ??Unconfirmed screening results must not be used for non-medical purposes. Urine Voided urine specimen / Unknown Non-Blood Collection / Unknown 06/23/2024 4:11 PM EST 06/23/2024 4:18 PM EST Quintin Ng MD LAB URINE ORDERABLES Final Res ult Performing Organization Address [place] Co de Phone Number [facility] [employer] [facility] [address] [place] [address], [place] * TSH Reflex Free T4 (06/23/2024 7:46 AM EST) Pathologist [facility] TSH 0.337 0.280 - 3.890 uIU/mL 06/23/2024 2:56 PM EST [facility] [employer] [facility] Blood Structure of peripheral vein / Unknown Venipuncture / Unknown 06/23/2024 7:46 AM EST 06/23/2024 7:51 AM EST Quintin Ng MD LAB BLOOD ORDERABLES Final Res ult Performing Organization Address [place] Co de Phone Number [facility] [employer] [facility] [address] [place] [address], [place] * (ABNORMAL) Hemoglobin A1c (06/23/2024 7:46 AM EST) Pathologist [facility] Hemoglobin A1C 7.9(H) <5.7 % of total Hgb 06/23/2024 12:45 PM EST [employer] Comment: For someone without known diabetes, a [...] (MG/DL) 180 mg/dL 06/23/2024 12:45 PM EST [employer] [facility] eAG (MMOL/L) 10.0 mmol/L 06/23/2024 12:45 PM EST [employer] [facility] Blood Structure of peripheral vein / Unknown Venipuncture / Unknown 06/23/2024 7:46 AM EST 06/23/2024 7:46 AM EST Narrative [facility] - 06/23/2024 12:45 PM EST [facility] Received Date: Alex Brand MD LAB BLOOD ORDERABLES Fin al Result [facility] [address] [facility] [address]rd Floor, [place] [address], [employer] [facility] [address], [place] [address], * Folate (06/23/2024 7:46 AM EST) Folate 15.0 4.8 - 24.2 ng/mL 06/23/2024 2:56 PM EST [facility] Blood Structure of peripheral vein / Unknown Venipuncture / Unknown 06/23/2024 7:46 AM EST 06/23/2024 7:51 AM EST Quintin Ng MD LAB BLOOD ORDERABLES Final Res ult [facility] [address] [place] [address], * Vitamin B12 (06/23/2024 7:46 AM EST) Vitamin B12 584 232 - 1,245 pg/mL 06/23/2024 2:56 PM EST [facility] Blood Structure of peripheral vein / Unknown Venipuncture / Unknown 06/23/2024 7:46 AM EST 06/23/2024 7:51 AM EST Quintin Ng MD LAB BLOOD ORDERABLES Final Res ult [employer] [address] [place] [address], [place] * Hepatitis C Antibody w/Reflex to HCV RNA, Quantitative PCR (06/23/2024 7:44 AM EST) Hepatitis C Antibody NON-REACT ZAINA NON-REACT ZAINA 06/23/2024 9:[address] [facility] Comment: HCV antibody was non-reactive. There is no laboratory evidence of HCV infection. In most cases, no further action is required. However, if recent HCV exposure is suspected, a test for HCV RNA (test code 88933) is suggested. For additional information please refer to http://education.[employer]/faq/GQJ55x5 (This link is being provided for informational/ educational purposes only.) Blood Structure of peripheral vein / Unknown Venipuncture / Unknown 06/23/2024 7:44 AM EST 06/23/2024 7:45 AM EST Narrative [facility] - 06/23/2024 9:10 PM EST [facility] Received Date: Alex Brand MD LAB BLOOD ORDERABLES Fin al Result [facility] [address] [facility] [address]rd Floor, [place] [address], [place] [phone] [facility] [address] [facility] 3rd Floor, [place] [address], [place] [phone] * [place] Top, Urine (06/22/2024 7:38 PM EST) Extra Tube Hold for add-ons. 06/23/2024 1:06 AM EST [employer] [facility] Comment:Auto resulted. Urine Urine specimen collection, clean catch / Unknown Non-Blood Collection / Unknown 06/22/2024 7:38 PM EST 06/22/2024 7:49 PM EST Alex Brand MD LAB URINE ORDERABLES Fin al Result [employer] [facility] [address] [place] [address], * (ABNORMAL) Urinalysis W/Reflex to Microscopic & Culture (06/22/2024 7:38 PM EST) Color, Urine Light Yellow Colorless, Light Yellow, Yellow, Dark Yellow 06/22/2024 8:17 PM EST [facility] Clarity, Urine Clear Clear 06/22/2024 8:17 PM EST [facility] Specific [place], Urine 1.020 1.005 - 1.030 06/22/2024 8:17 PM EST [facility] pH, Urine 6.0 4.6 - 8.0 06/22/2024 8:17 PM EST [facility] Protein, Urine Negative Negative 06/22/2024 8:17 PM EST [facility] Glucose, Urine 3+(A) Negative 06/22/2024 8:17 PM EST [facility] Ketones, Urine 1+(A) Negative 06/22/2024 8:17 PM EST [facility] Bilirubin, Urine Negative Negative 06/22/2024 8:17 PM EST [facility] Blood, Urine 2+(A) Negative 06/22/2024 8:17 PM EST [facility] Nitrite, Urine Negative Negative 06/22/2024 8:17 PM EST [facility] Urobilinogen, Urine Normal Normal 06/22/2024 8:17 PM EST [facility] Leukocyte Esterase, Urine Negative Negative 06/22/2024 8:17 PM EST [facility] WBC, Urine <1 0 - 2 /HPF 06/22/2024 8:17 PM EST [facility] RBC, Urine <1 0 - 2 /HPF 06/22/2024 8:17 PM EST [facility] Hyaline Casts, Urine 0 0 - 2 /LPF 06/22/2024 8:17 PM EST [facility] Bacteria, Urine None None /HPF /HPF 06/22/2024 8:17 PM EST [facility] Urine Urine specimen collection, clean catch / Unknown Non-Blood Collection / Unknown 06/22/2024 7:38 PM EST 06/22/2024 7:49 PM EST us Alex Brand MD LAB URINE ORDERABLES Fin al Result [facility] [address] [place], [place] [id number], * Blood Culture, Peripheral #2 (06/22/2024 6:42 PM EST) Only the most recent of2 resultswithin the time period is included. Culture No growth after 5 days 06/27/2024 10:22 PM EST [facility] Blood Structure of peripheral vein / Unknown Venipuncture / Unknown 06/22/2024 6:42 PM EST 06/22/2024 7:04 PM EST [facility] 06/27/2024 10:22 PM EST [facility] Received Date: MICRO NUMBER: [id number] SPECIMEN QUALITY: Suboptimal SOURCE: BLOOD VENOUS, PERIPHERAL STATUS: FINAL COMMENT: Aerobic and anaerobic bottle received. Inspection of blood culture bottles indicates that an inadequate volume of blood may have been collected for the detection of sepsis. Alex Brand MD LAB MICROBIOLOGY - GENER AL ORDERABLES Final Result [facility]ARRE[facility] [address] [facility] [address], [place] [address], [place] [phone] [employer] [address], [place] [address], [place] [phone] * X-Ray Hand Left 3+ Views (06/22/2024 [...] obtain the completed interpretation. ? Workstation ID: [id number] Narrative 06/22/2024 2:06 PM EST COMPARISON: ??None. ?? FINDINGS AND Resulting Agency Comment [id number] Procedure Note Antonia Wayne MD - 06/22/2024 COMPARISON: None. FINDINGS AND IMPRESSION: No acute fracture or dislocation. Alignment and joint spaces aremaintained. Soft tissues are within normal limits. If this radiology report contains a blank impression section, it is anincomplete radiology report. Please contact the interpreting radiologistor applicable radiology division as soon as possible to obtain thecompleted interpretation. Workstation ID: [id number] Sofía Hardy MD IMG XR PROCEDURES Final [...] QTC Interval 433 ms MUSE EKG P Newton 53 degrees MUSE EKG R Newton 30 degrees MUSE EKG T Wave [place] 33 degrees MUSE EKG 06/22/2024 1:31 PM EST 07/01/2024 12:59 PM EST Impressions MUSE EKG - 07/01/2024 12:59 PM EST NORMAL SINUS RHYTHM NORMAL ECG WHEN COMPARED WITH ECG OF 22-JUN-2024 08:12, (UNCONFIRMED) PREVIOUS ECG HAS UNDETERMINED RHYTHM, NEEDS REVIEW Confirmed by Ulises Thompson ([id number]) on 07/01/2024 12:59:17 PM us Sofía Hardy MD ECG ORDERABLES Final Resul t MUSE EKG * Lactic Acid, Plasma (06/22/2024 10:59 AM EST) Lactic Acid 1.6 0.5 - 1.9 mmol/L 06/22/2024 11:47 AM EST [facility] Blood Structure of peripheral vein / Unknown Venipuncture / Unknown 06/22/2024 10:59 AM EST 06/22/2024 11:17 AM EST us Sofía Hardy MD LAB BLOOD ORDERABLES Final Result [facility] [address] [place] [address], * CT C-Spine WO Contrast (06/22/2024 8:55 [...] obtain the completed interpretation. ? Workstation ID: [id number] Up-to-date CT equipment and radiation dose reduction techniques were employed. CTDIvol: 26.2 - 70.4 mGy. DLP: 2128 mGy-cm. ??The following accession numbers are related to this dose report [id number]: [id number] Narrative 06/22/2024 9:50 AM EST COMPARISON: No [...] tissues are unremarkable. ?? Resulting Agency Comment [id number] Procedure Note Paulo Osuna DO - 06/22/2024 [...] possible to obtain thecompleted interpretation. Workstation ID: [id number] Up-to-date CT equipment and radiation dose reduction techniques wereemployed. CTDIvol: 26.2 - 70.4 mGy. DLP: 2128 mGy-cm. The followingaccession numbers are related to this dose report [id number]: [id number] us Sofía Hardy MD IM CT PROCEDURES [...] obtain the completed interpretation. ? Workstation ID: [id number] Up-to-date CT equipment and radiation dose reduction techniques were employed. CTDIvol: 26.2 - 70.4 mGy. DLP: 2128 mGy-cm. ??The following accession numbers are related to this dose report [id number]: [id number] Narrative 06/22/2024 9:48 AM EST TECHNIQUE: 3D [...] cells are well aerated. Resulting Agency Comment [id number] Procedure Note Paulo Osuna DO - 06/22/2024 [...] possible to obtain thecompleted interpretation. Workstation ID: [id number] Up-to-date CT equipment and radiation dose reduction techniques wereemployed. CTDIvol: 26.2 - 70.4 mGy. DLP: 2128 mGy-cm. The followingaccession numbers are related to this dose report [id number]: [id number] us Sofía Hardy MD IM CT PROCEDURES Final Res ult * COVID-19, Flu A/B & RSV RNA PCR, Symptomatic (06/22/2024 8:10 AM EST) Pathologist [facility] PCR, SARS CoV-2 RNA Not Detected Not Detected [employer] 06/22/2024 8:57 AM EST [facility] Comment:A Not Detected (Nega [...] A RNA PCR Not Detected Not Detected [employer] 06/22/2024 8:57 AM EST [facility] Comment:Negative results do not preclude infection and should not be used as the sole basis for diagnosis, treatment or other patient management decisions. Negative results must be combined with clinical observations, patient history, and/or epidemiological information. Flu B RNA PCR Not Detected Not Detected [employer] 06/22/2024 8:57 AM EST [facility] Comment:Negative results do not preclude infection and should not be used as the sole basis for diagnosis, treatment or other patient management decisions. Negative results must be combined with clinical observations, patient history, and/or epidemiological information. RSV RNA PCR Not Detected Not Detected [employer] 06/22/2024 8:57 AM EST [facility] Comment:Negative results do not preclude infection and should not be used as the sole basis for diagnosis, treatment or other patient management decisions. Negative results must be combined with clinical observations, patient history, and/or epidemiological information. Swab (Nares) Non-Blood Collection / Unknown 06/22/2024 8:10 AM EST 06/22/2024 8:10 AM EST Narrative [facility] - 06/22/2024 8:57 AM EST This test was developed, validated and its performance characteristics determined by [facility]. This test has not been cleared or approved by the U.S. Food and Drug Administration (FDA). FDA Policy for Diagnostic Tests for Coronavirus Disease-2019 during the Public Health Emergency issued August 04, 2019, is followed. Sofía Hardy MD LAB BODY FLUIDS AND STOOLS ORDERABLES Final Result Performing Organization Address City/[facility]/ZIP Co de Phone Number [facility] [address] [place] [address], * (ABNORMAL) Lactic Acid (w/Repeat if >2) - Sepsis (06/22/2024 8:08 AM EST) Pathologist [facility] Lactic Acid 2.7(H) 0.5 - 1.9 mmol/L 06/22/2024 8:41 AM EST [facility] Blood Structure of peripheral vein / Unknown Venipuncture / Unknown 06/22/2024 8:08 AM EST 06/22/2024 8:13 AM EST Sofía Hardy MD LAB BLOOD ORDERABLES Final Result Performing Organization Address City/[facility]/ZIP Co de Phone Number [facility] [address] [place] [address], [place] * Lipase (06/22/2024 8:08 AM EST) Lipase 27 13 - 60 U/L 06/22/2024 8:48 [address] [facility] Blood Structure of peripheral vein / Unknown Venipuncture / Unknown 06/22/2024 8:08 AM EST 06/22/2024 8:12 AM EST Sofía Hardy MD LAB BLOOD ORDERABLES Final Result Performing Organization Address City/[facility]/ZIP Co de Phone Number [employer] [facility] [address] [place] [address], [place] * Ethanol (06/22/2024 8:08 AM EST) Ethanol <10 <10 mg/dL 06/22/2024 8:45 AM EST [facility] Blood Structure of peripheral vein / Unknown Venipuncture / Unknown 06/22/2024 8:08 AM EST 06/22/2024 8:12 AM EST Sofía Hardy MD LAB BLOOD ORDERABLES Final Result Performing Organization Address City/[facility]/ZIP Co de Phone Number [facility] [address] [place] [address], * (ABNORMAL) CMP - Comprehensive Metabolic Panel (06/22/2024 8:08 AM EST) NA 138 135 - 145 mmol/L 06/22/2024 8:48 AM EST [facility] K 4.7 3.5 - 5.3 mmol/L 06/22/2024 8:[address] [facility] Cl 97(L) 98 - 107 mmol/L 06/22/2024 8:48 AM EST [facility] CO2 16(L) 22 - 32 mmol/L 06/22/2024 8:48 AM EST [facility] Anion Gap 25(H) 5 - 15 06/22/2024 8:48 AM EST [facility] Glucose 235(H) 65 - 99 mg/dL 06/22/2024 8:48 AM EST [facility] Creatinine 1.30 0.60 - 1.30 mg/dL 06/22/2024 8:48 AM EST [facility] Calcium 9.3 8.6 - 10.5 mg/dL 06/22/2024 8:48 AM EST [facility] Total Protein 8.1(H) 6.0 - 8.0 g/dL 06/22/2024 8:48 AM EST [facility] Albumin 4.5 3.5 - 5.2 g/dL 06/22/2024 8:48 AM EST [facility] Bilirubin, Total 0.5 0.2 - 1.2 mg/dL 06/22/2024 8:48 AM EST [facility] Alkaline Phosphatase 60 35 - 129 U/L 06/22/2024 8:48 AM EST [facility] AST 314(H) 10 - 40 U/L 06/22/2024 8:48 AM EST [facility] ALT 142(H) 10 - 40 U/L 06/22/2024 8:48 AM EST [facility] BUN 50(H) 7 - 23 mg/dL 06/22/2024 8:48 AM EST [facility] eGFR 72 >=60 mL/min/1. 73m2 06/22/2024 8:48 AM EST [facility] Comment:The estimated glomer ular [...] - 4.2 g/dL 06/22/2024 8:48 AM EST [facility] A/G Ratio 1.3(L) 1.5 - 3.0 06/22/2024 8:48 AM EST [facility] Blood Structure of peripheral vein / Unknown Venipuncture / Unknown 06/22/2024 8:08 AM EST 06/22/2024 8:12 AM EST us Sofía Hardy MD LAB BLOOD ORDERABLES Final Result [facility] [address] [place] [address], [place] * XR Chest Portable 1 View [...] obtain the completed interpretation. ? Workstation ID: [id number] Narrative 06/22/2024 8:14 AM EST COMPARISON: None. FINDINGS: Lines/Tubes/Devices: None. Lungs: No consolidation or pulmonary edema. Pleura: No pleural effusion. No pneumothorax. Heart/Mediastinum: The cardiac and mediastinal contours are normal. Bones/Soft tissues: No acute osseous abnormality. Resulting Agency Comment [id number] Procedure Note Paulo Osuna DO - 06/22/2024 [...] possible to obtain thecompleted interpretation. Workstation ID: [id number] us Sofía Hardy MD IMG XR PROCEDURES Final Res ult * HEART & VASCULAR - SCANNED (06/22/2024) Anatomical Region Laterality Modality Other us Onbase Scan Paras SCANNED PROCEDURES Final Resu lt from Last 3 Months Insurance [facility] MEDICAID Advance Directives * Full Code (Latest Code Status on File) Date Activated Date Inactivated Comments 06/22/2024 2:22 PM 06/25/2024 11:13 PM Care Teams Train Starter Relationship Specialty Start Date End Date Dayne Dubose [address] [place] [address] [id number] PCP - General 06/25/24
--- OUTSIDE RECORDS SUMMARY | 2024-07-21 13:03 | XMS_ITS | Encounter Summary ---
Author Organization [facility] Address [address] [id number] Care Team Providers Care Deputy Fire Chief Name Role Phone LaurenceariDayne urbina Primary Care Provider [phone] Reason for Visit * Reason Comments Found Down * Auth/Cert (Routine) Specialty Diagnoses / Procedures Referred By Contac t Referred To Contact Diagnoses Rhabdomyolysis Referral ID Status Reason Start Date Expiration Date Visits Re quested Visits Authorized [id number] 99 99 Encounter Details Date Type Department Care Team (Latest Contact Info) Description 06/22/2024 7:39 AM EST - 06/25/2024 9:01 PM [facility] [[email or web address] Hospital Encounter [facility] Emergency Department [address] [place] [address] Sofía Hardy MD [address] [place] [phone] Mack Cortez MD [address] [place] [id number] Alex Hines MD [address] [place] [phone] Quintin Ng MD [address] [place] [phone] Zuleyma Maldonado MD [address] [place] [phone] Rhabdomyolysis (Primary Dx); Opioid use disorder, severe, [...] 8 06/24/2024 5:00 PM EST Marisol Huynh [facility] documented as of this encounter Discharge Summaries * Zuleyma Maldonado MD - 06/25/2024 2:31 PM EST Images from the original note were not included. DISCHARGE SUMMARY [facility] DISCHARGE INFORMATION: Date and Time of Admission: 06/22/2024 7:03 PM Date of Discharge: 06/25/24 DISCHARGE DIAGNOSIS: Problem List Active Problems Cocaine use disorder (HCC) Frostbite of both feet Intentional drug overdose (HCC) Nondependent alcohol abuse Opioid use disorder AVRIL (obstructive sleep apnea) Suicidal ideation T2DM (type 2 diabetes mellitus) ([facility]) Resolved Problems * (Principal) RESOLVED: Rhabdomyolysis RESOLVED: Fever ATTENDING PHYSICIAN ON DISCHARGE: Attending Provider: Zuleyma Maldonado MD [phone] FOLLOW-UPS AND SCHEDULED APPOINTMENTS: Future Appointments Date Time Provider Department Center 07/01/2024 4:00 PM AARON Velasquez [facility] CONTACT INFORMATION FOR FOLLOW-UP Dayne Dubose Relationship: PCP - General [address] [place] [address] Next Steps: Call in 2 week(s) PENDING [...] Propoxyphene Screen, Urine NEGATIVE <300 ng/mL [facility] [place] Collection Time: 06/23/24 4:20 PM Specimen: [...] to obtain the completed interpretation. Workstation ID: [id number] CT C-Spine WO Contrast Result Date: 06/22/2024 All Results No acute fracture or traumatic malalignment of the cervical spine. If this radiology report contains a blank impression section, it is an incomplete radiology report. Please contact the interpreting radiologist or applicable radiology division as soon as possible to obtain the completed interpretation. Workstation ID: [id number] Up-to-date CT equipment and radiation dose reduction techniques were employed. CTDIvol: 26.2 - 70.4 mGy. DLP: 2128 mGy-cm. The following accession numbers are related to this dose report [id number]: [id number] CT Head WO Contrast Result Date: 06/22/2024 All Results No acute intracranial hemorrhage, large territorial infarction, or mass effect. If thisradiology report contains a blank impression section, it is an incomplete radiology report. Please contact the interpreting radiologist or applicable radiology division as soon as possible to obtain the completed interpretation. Workstation ID: [id number] Up-to-date CT equipment and radiation dose reduction techniques were employed. CTDIvol: 26.2 - 70.4 mGy. DLP: 2128 mGy-cm. The following accession numbers are related to this dose report [id number]: [id number] XR Chest Portable 1 View Result Date: 06/22/2024 All Results No acute pulmonary process or acute displaced fracture. If this radiology report contains a blank impression section, it is an incomplete radiology report. Please contact the interpretingradiologist or applicable radiology division as soon as possible to obtain the completed interpretation. Workstation ID: [id number] GLOBAL PLAN OF CARE CONSULTS: IP CONSULT [...] Wound Clinic as scheduled. You may call [phone] (Dr. Salcedo) if you have any questions [...] apnea) Cardiomegaly Suicidal ideation Intentional drug overdose ([facility]) Celso Blanton is a 39 y.o. male [...] Surgery Contact Information: -Sunday to Sunday 6am-5pm: #[phone] (PRSS) for primary patients and existing consults; see PRS on callschedule for new consults -Sunday to Sunday 5pm-6am & Weekends: see PRS manager generation schedule for primary patients, existing consults, and [...] fluffs between toes and loose Kerlix wraps -shop hand consulted Fever Initially hypothermic secondary to exposure. [...] 1.7. CK level continues to downtrend from 9815-9193 today. Anemia worsened from 11.5-9.6 in the [...] Ringer's (LR) premix infusion intravenous, Continuous 06/23/24 4673 NUTRITION: Diet, Adult Suicide Risk Safety Tray [...] note were not included. History & Physical [facility] Admission Date: 06/22/2024 7:39 AM LOS: [...] for component: T3 No components found for: [id number] No results found for: CKTOTAL , CKMB [...] to obtain the completed interpretation. Workstation ID: [id number] CT C-Spine WO Contrast Result Date: 06/22/2024 No acute fracture or traumatic malalignment of the cervical spine. If this radiology report contains a blank impression section, it is an incomplete radiology report. Please contact the interpreting radiologist or applicable radiology division as soon as possible to obtain the completed interpretation. Workstation ID: [id number] Up-to-date CT equipment and radiation dose reduction techniques wereemployed. CTDIvol: 26.2 - 70.4 mGy. DLP: 2128 mGy-cm. The following accession numbers are related to this dose report [id number]: [id number] CT Head WO Contrast Result Date: 06/22/2024 No acute intracranial hemorrhage, large territorial infarction, or mass effect. If this radiology report contains a blank impression section, it is an incomplete radiology report. Please contact the interpreting radiologist or applicable radiology division as soon as possible to obtain the completed interpretation. Workstation ID: [id number] Up-to-date CT equipment and radiation dose reduction techniques were employed. CTDIvol: 26.2 - 70.4 mGy. DLP: 2128 mGy-cm. The following accession numbers are related to this dose report [id number]: [id number] XR Chest Portable 1 View Result Date: 06/22/2024 No acute pulmonary process or acute displaced fracture. If this radiology report contains a blank impression section, it is an incomplete radiology report. Please contact the interpreting radiologistor applicable radiology division as soon as possible to obtain the completed interpretation. Workstation ID: [id number] Assessment & Plan 39 y.o. male with [...] on CPAP. T2DM (type 2 diabetes mellitus) ([facility]) Assessment & Plan History of T2DM, managed [...] Patient and Inter-professional team. Alex Hines MD [facility] Medicine 06/23/2024 documented in this encounter Consult Notes * Dara Anderson MD - 06/25/2024 4:51 PM EST ADDICTION PSYCHIATRY FOLLOW UP NOTE Diagnosis: Patient Active Problem List Diagnosis Tobacco use disorder Obesity Nondependent alcohol abuse Cocaine use disorder (HCC) Opioid use disorder Frostbite of both feet T2DM (type 2 diabetes mellitus) ([facility]) AVRIL (obstructive sleep apnea) Cardiomegaly Suicidal ideation Intentional drug overdose ([facility]) Record Review: Yes Subjective Patient was seen [...] limited given the interview you sitting in [facility] in the ED and the fact [...] you have any questions. Dara Pink MD Company Tanker Truck Driver, Addiction Consultation Services [facility] * Marisol Xiong, [facility] - 06/23/2024 12:45 PM ESTAssociated Order(s): IP CONSULT TO ADDICTION PSYCHIATRY Addiction Social Work Consult Identifying Data: Celso Blanton, a 39 y.o. male , two children Housing instability Limited supports From [facility] Not employed History of Present Illness/Problem: [...] per chart review, hx schizophrenia (seen at [facility] in February with diagnosis of paranoid [...] COWS, when patient starts scoring on COWS efqr-ia-kahalgnp w/d, can start suboxone 2 mg SL 3 times a day. Patient is pending inpatient psychiatric admission under Section 12. Would recommend dual dx treatment with step-down to substance use recovery supports and/or program. -Recommend engagement with field hockey and lacrosse coach during [facility] stay, along with follow- up engagement post discharge as needed/appropriate (create relapse prevention plan, identify strengths, identify supports; motivational enhancement to encourage hope and change, promote recovery, and provide encouragement). Time spent with the patient: 35 min GEETA Jaramillo Addiction Psychiatry Consultation Services [facility] (call or text) * Brayan [...] after being found down near to his [place] [facility] [place]. He was down for unknown amount of [...] He [facility] He endorses that the day he had [...] [place]. Denies problems of appetite or sleep. Rsoi: Denies/Symptoms consistent with distractibility, elated mood, decreased [...] Health Provider History: Medications last prescribed by [facility] (CABLE SYSTEMS INSTALLER: Kodak Lopez) Psychiatrist: no Therapist:no Previous psychiatric [...] file. Allergies: Codeine Social History: Comes from [place], [place], for many years. Have two kids [...] the hospital he will go to a [place] [facility]. Family History: Denies family history of psych. [...] today REFLEXES: Deferred SENSORY: Deferred COORDINATION: Normal tjfyeo-xm-zadg normal in bilateral upper extremities Clock draw: [...] to obtain the completed interpretation. Workstation ID: [id number] CT C-Spine WO Contrast Result Date: 06/22/2024 No acute fracture or traumatic malalignment of the cervical spine. If this radiology report contains a blank impression section, it is an incomplete radiology report. Please contact the interpreting radiologist or applicable radiology division as soon as possible to obtain the completed interpretation. Workstation ID: [id number] Up-to-date CT equipment and radiation dose reduction techniques wereemployed. CTDIvol: 26.2 - 70.4 mGy. DLP: 2128 mGy-cm. The following accession numbers are related to this dose report [id number]: [id number] CT Head WO Contrast Result Date: 06/22/2024 No acute intracranial hemorrhage, large territorial infarction, or mass effect. If this radiology report contains a blank impression section, it is an incomplete radiology report. Please contact the interpreting radiologist or applicable radiology division as soon as possible to obtain the completed interpretation. Workstation ID: [id number] Up-to-date CT equipment and radiation dose reduction techniques were employed. CTDIvol: 26.2 - 70.4 mGy. DLP: 2128 mGy-cm. The following accession numbers are related to this dose report [id number]: [id number] XR Chest Portable 1 View Result Date: 06/22/2024 No acute pulmonary process or acute displaced fracture. If this radiology report contains a blank impression section, it is an incomplete radiology report. Please contact the interpreting radiologistor applicable radiology division as soon as possible to obtain the completed interpretation. Workstation ID: [id number] Assessment - Diagnosis - Goals: Suicide Risk [...] after being found down outside of his [place] for an unknown amount of time. Psych [...] was being treated in the clinic in [facility] but the last prescription is from February [...] medical record, including behavioral health notes, via [employer] (or [employer]) unless additional patient authorization is obtained at Point of Care. Brayan Washburn MD PGY 4 - Neurology resident Pager: #[phone] Portions of this note were done using [...] Patient History limited by: Mental status change land surveyor used: No 39M with past medical history of alcohol use disorder, crack cocaine use, potential diabetes mellitus who presents to the ED after being found down outside after using fentanyl, cocaine, and alcohol TEMPLATE FITTER. Unknown down time. Here in ED, hypothermic [...] by me in the absence of a dining room host. Rhythm is normal sinus. Rate of 86. [...] [RS] MD Celso Manzanares : 1985 CSN: [id number] Quintin Waldrop MD Resident 06/22/24 1741 Cosigned [...] by me. Celso Blanton : 1985 CSN: [id number] documented in this encounter Miscellaneous Notes * Plan of Care - Brent Lomas LCSW - 06/25/2024 1:59 PM EST Celso has been accepted to [facility] for inpatient level of care. He will [...] CN NAME: Celso Blanton : 1985 CSN: [id number] * Plan of Care - Nellie Del Valle - 06/25/2024 10:10 AM EST RC Note: This RC met with pt in the ED to introduce myself and explore his interest in recovery support. Pt shared that the OD which led to this admission was intentional and not the first time he has tried. Pt shared that he is from the [place], [place] area and that he has been homeless for [id number] yrs. Pt states that his longest period [...] support of further resources. Nellie Del Valle, [facility] [phone] * Plan of Care - Brent Lomas LCSW - 06/25/2024 8:55 AM EST Images from the original note were not included. Psychiatric Bed Placement Team Note: This psychiatric regional flatbed truck driver is currently working on locating an inpatient psychiatric bed for this patient, Celso Blanton [id number] . This patient has been deemed medically stable for discharge to a psychiatric unit by the medical team. Notable medical conditions for the accepting facility to note: Referrals have been sent to the following inpatient psychiatric units: Routing History Date/Time From To Method 06/25/2024 8:55 AM Brent Lomas, [facility] Fax 06/25/2024 8:55 AM Brent Lomas, [facility] Fax 06/25/2024 8:55 AM Brent Lomas, [facility] Fax 06/25/2024 8:55 AM Brent Lomas, [facility] medicine Fax . There are currently are no bed offers If there are any changes to patients medical stability please alert this psychiatric regional flatbed truck driver. Will continue to follow for psychiatric bed placement. * Plan of Care - Brent Lomas LCSW - 06/25/2024 8:10 AM EST Copied and revised for psych placement only. Celso Blanton #[id number] (CSN:[id number]) (:1985 39 y.o. M) (Adm: 06/22/24) [facility] [id number] A Preferred Name Legal Name if different Gender Identity Legal Sex M Pronouns Sex Assigned at Patient Demographics Address [address] [address] (Home) *Preferred* Status No [2] History : No Patient Ethnic Group & Race Race Black or Ethnic Group Not or Patient Ethnicity [5] Active Insurance as of 06/22/2024 Primary Coverage Payor Plan Insurance Group Employer/Plan Group [facility] MEDICA[facility] [id number] Payor Address Payor Phone Number Payor Fax Number Effective Dates [address] 08/19/2022 - None Entered [facility] [phone] Subscriber Name Subscriber Date Member ID CELSO BLANTON 1985 [id number] PCP and Center Primary Care Provider Has No Pcp Or Ref Patient [facility] Emergency Contacts None on File Other Contacts None on File * Assessment & Plan Note - Zuleyma Maldonado MD - 06/24/2024 3:54 PM ESTAssociated Problem(s): T2DM (type 2 diabetes mellitus) ([facility]) History of T2DM, managed with metformin 1000 [...] fluffs between toes and loose Kerlix wraps -shop hand consulted * Assessment & Plan Note - [...] Patient Assessment: Patient is homeless, [place] [facility] [place]. On section 12 for SI statements. Waiting for [facility]. 1;1 obs for safety Supports, HCP, Designated Caregiver, Guardian: No contacts or HCP in chart. Initial Discharge Planning: ? TBD, psych eval pending. If clears Psych likely DC back to [facility] Choice list (with star ratings) provided / discussed, if indicated (Y or NA): NA * Consult to H&P - Darlyn Farfan MD - 06/22/2024 4:56 PM EST Consult Note Plastic & Reconstructive Surgery Consulting Attending: Emiliano Salcedo MD Requesting Provider: Attending Provider: Mack Cortez MD [phone] Date Requested: 06/22/24 Subjective Chief Complaint: BL [...] Recent Results (from the past 24 hours) [facility] - Comprehensive Metabolic Panel Collection Time: 06/22/24 [...] to obtain the completed interpretation. Workstation ID: [id number] C-Spine WO ContrastResult Date: 06/22/2024 acute fracture or traumatic malalignment of the cervical spine. If this radiology report contains a blank impression section, itis an incomplete radiology report. Please contact the interpreting radiologist or applicable radiology division as soon as possible to obtain the completed interpretation. Workstation ID: [id number] Up-to-date CT equipment and radiation dose reduction techniques were employed. CTDIvol: 26.2 - 70.4 mGy. DLP: 2128 mGy-cm. The following accession numbers are related to this dose report [id number]: [id number] Head WO ContrastResult Date: 06/22/2024 acute intracranial hemorrhage, large territorial infarction, or mass effect. If this radiology report contains a blank impression section, it is an incomplete radiology report. Please contact the interpreting radiologist or applicable radiology division as soon as possible to obtain the completed interpretation. Workstation ID: [id number] Up-to-date CT equipment and radiation dose reduction techniques were employed. CTDIvol: 26.2 - 70.4 mGy. DLP: 2128 mGy-cm. The following accession numbers are related to this dose report [id number]: [id number] Chest Portable 1 ViewResult Date: 06/22/2024No acute pulmonary process or acute displaced fracture. If this radiology report contains a blank impression section, it is an incomplete radiology report. Please contact the interpreting radiologist or applicable radiology division as soon as possible to obtain the completed interpretation. Workstation ID: [id number] I have personally reviewed the patient's relevant [...] by me in the absence of a dining room host. Rhythm is normal sinus. Rate of 86. [...] Waldrop MD Celso Blanton : 1985 CSN: [id number] Cosigned by Mack Cortez MD at 06/25/2024 [...] by me. Celso Blanton : 1985 CSN: [id number] * Emergency Department Information Exchange - [facility]RI[facility] - [place] [facility] - 06/22/2024 7:47 AM EST [facility] NOTIFICATION 06/22/2024 07:39 CELSO BLANTON : 1985 [facility]'s patient encounter information: MRN:?[id number] Account Number:?[id number] Billing Account Number:?[id number] Criteria Met High-Utilizers Standard: 6 ED visits within 6 months Security and Safety No Security Events were found. ED Care Guidelines There are currently no ED Care Guidelines for this patient. Please check your facility's medical records system. Prescription Drug Data No Prescription Drug Data was found. E.D. Visit Count (12 mo.) Facility Visits [facility] 19 [facility] 3 [facility] 1 Total 23 Note: Visits indicate total known visits. Recent Emergency Department Visit Summary Showing 10 most recent visits out of 23 in the past 12 months Date Facility City State Type Diagnoses or Chief Complaint Jun 22, 2024 [facility] Emergency Found Down [facility] 99. Cocaine abuse, uncomplicated 99. Suicidal ideations Mar [facility] 20[facility] 1. Dizziness and giddiness 1. Cocaine use, unspecified, uncomplicated 2. Type 2 diabetes mellitus without complications 3. Paranoid schizophrenia 4. Unspecified fall, initial encounter Feb [facility] 2024 [facility] 1. Paranoid schizophrenia 3. Encounter for screening for COVID-19 4. Type 2 diabetes mellitus without complications 99. Auditory hallucinations 99. Suicidal ideations Feb 07, 2024 [facility] 1. Schizophrenia, unspecified 2. Type 2 diabetes mellitus without complications 3. Essential (primary) hypertension 4. Gastro-esophageal reflux disease without esophagitis 5. MCC (current) use of oral hypoglycemic drugs 6. Other fci (current) drug therapy 7. Encounter for screening for COVID-19 99. Suicidal ideations 99. Poisoning by heroin, accidental (unintentional), initial encounter Feb [facility] 20[facility] 1. Pain, unspecified 2. Procedure and treatment not carried out due to patient leaving prior to being seen by health care provider Jan 23, 2024 [facility] Harper [facility] Chief Complaint: PSYCH [facility] Chief Complaint: ETOH, ?ALTERCATION Jan 10, 2024 [facility] 1. Paranoid schizophrenia 1. Poisoning [...] Type 2 diabetes mellitus without complications 9. MCC (current) use of oral hypoglycemic drugs Oct 25, 2023 [facility] Emergency 1. Auditory hallucinations 1. Paranoid schizophrenia 2. 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 Encounter for screening for COVID-19 4. Encounter for observation for suspected exposure to other biological agents ruled out 5. Other fci (current) drug therapy 99. Cocaine abuse, uncomplicated 99. Homicidal ideations 99. Suicidal ideations 99. Patient's other noncompliance with medication regimen for other reason Recent Inpatient Visit Summary Date [facility] Type Diagnoses or Chief Complaint Aug 22, 2023 [facility] Inpatient 99. Unspecified open wound, right [...] Care Team No Care Team was found. [facility] This patient has registered at the [facility] Emergency Department For more information visit: [email or web address] PLEASE NOTE: 1. Any care recommendations and other clinical information are provided as guidelines or for historical purposes only, and providers should exercise their own clinical judgment when providing care. 2. You may only use this information for purposes of treatment, payment or health care operations activities, and subject to the limitations of applicable [employer] Policies. 3. You should consult directly with the organization that provided a care guideline or other clinical history with any questions about additional information or accuracy or completeness of information provided. ? 2024 [facility] [place] documented in this encounter Plan of Treatment Scheduled Orders Name Type Priority Associated Diagnoses Orde r Schedule Vitamin B12 Lab Timed 06/23/2024 un til discontinued, 1 completed Folate Lab Timed 06/23/2024 unt il discontinued, 1 completed documented as of this encounter Procedures * Due to [place] state law, this organization might not be [...] in this encounter Results * Due to [place] state law, this organization might not be sharing negative HIV tests. * (ABNORMAL) Creatine Kinase (06/25/2024 7:41 PM EST) CK 1,115(H) 49 - 348 U/L 06/25/2024 8:35 PM EST [facility] Blood Structure of peripheral vein / Unknown Venipuncture / Unknown 06/25/2024 7:41 PM EST 06/25/2024 8:05 PM EST us Quintin Ng MD LAB BLOOD ORDERABLES Final Res ult Performing Organization Address [facility] [facility] Co de Phone Number [employer] [facility] CLINICAL PATHOLOGY LABORATORY [address] [place] [address], [place] * (ABNORMAL) POCT Glucose, interfaced (06/25/2024 5:00 PM EST) Glucose, POCT 312(H) 70 - 99 mg/dL 06/25/2024 5:01 PM EST [facility] Comment: The vendette has not determined the efficacy of this test in Critically ill patients. ??[facility] defines Critically ill patients for the [...] Fin al Result Performing Organization Address [facility] Co de Phone Number [facility] [address] [place] [address], [place] * (ABNORMAL) POCT Glucose, interfaced (06/25/2024 12:59 PM EST) Glucose, POCT 156(H) 70 - 99 mg/dL 06/25/2024 1:01 PM EST [facility] Comment: The vendette has not determined the efficacy of this test in Critically ill patients. ??[facility] defines Critically ill patients for the [...] Fin al Result Performing Organization Address [facility] de Phone Number [facility] [address] [place] [address], * (ABNORMAL) POCT Glucose, interfaced (06/25/2024 8:27 AM EST) [facility] Glucose, POCT 270(H) 70 - 99 mg/dL 06/25/2024 8:29 AM EST [facility] Comment: The vendette has not determined the efficacy of this test in Critically ill patients. ??[facility] defines Critically ill patients for the [...] Fin al Result Performing Organization Address [facility] Co de Phone Number [facility] [address] [place] [address], [place] * (ABNORMAL) Creatine Kinase (06/25/2024 6:41 AM EST) CK 1,655(H) 49 - 348 U/L 06/25/2024 8:07 AM EST [facility] CLINICAL PATHOLOGY LABORATORY Blood Structure of peripheral vein / Unknown Venipuncture / Unknown 06/25/2024 6:41 AM EST 06/25/2024 7:29 AM EST Quintin Ng MD LAB BLOOD ORDERABLES Final Res ult Performing Organization Address [facility] Co de Phone Number [employer] CLINICAL PATHOLOGY LABORATORY [address] [place] [address], [place] * Phosphorus (06/25/2024 6:41 AM EST) Phosphorus 3.0 2.5 - 4.5 mg/dL 06/25/2024 8:07 AM EST [facility] CL[facility] PATHOLOG[facility] LABORAT[facility] Blood Structure of peripheral vein / Unknown Venipuncture / Unknown 06/25/2024 6:41 AM EST 06/25/2024 7:29 AM EST Alex Hines MD LAB BLOOD ORDERABLES Fin al Result Performing Organization Address [facility]/ZIP Co de Phone Number [employer] CL[facility] PATHOLOGY LABORATORY [address] [place] [address], [place] * Magnesium (06/25/2024 6:41 AM EST) MG 1.8 1.6 - 2.4 mg/dL 06/25/2024 8:07 AM EST [facility] CLIN[facility] PATHOLOGY LABORATORY Blood Structure of peripheral vein / Unknown Venipuncture / Unknown 06/25/2024 6:41 AM EST 06/25/2024 7:29 AM EST Alex Hines MD LAB BLOOD ORDERABLES Fin al Result [facility] [address] [place] [address], * (ABNORMAL) Basic metabolic panel (06/25/2024 6:41 AM EST) NA 140 135 - 145 mmol/L 06/25/2024 8:07 AM EST [facility] [place] [facility] K 4.1 3.5 - 5.3 mmol/L 06/25/2024 8:07 AM EST [facility] PartnersRI[facility] CL[facility] PATHOLOGY LABORAT[facility] Cl 103 98 - 107 mmol/L 06/25/2024 8:07 AM EST [facility] PartnersRIMonkimun [facility] [place] [facility] LAB[facility] CO2 26 22 - 32 mmol/L 06/25/2024 8:07 AM EST [facility] BUN 11 7 - 23 mg/dL 06/25/2024 8:07 AM EST [facility] [place] [facility] Creatinine 0.97 0.60 - 1.30 mg/dL 06/25/2024 8:07 AM EST [facility] PartnersRIM[facility] [place] Glucose 210(H) 65 - 99 mg/dL 06/25/2024 8:07 AM EST UMDermTech InternationalRIAL - [place] [facility] LAB[facility]ORY Calcium 9.2 8.6 - 10.5 mg/dL 06/25/2024 8:07 AM EST [facility] [place] [facility] LAB[facility] Anion Gap 11 5 - 15 06/25/2024 8:07 AM EST [facility]IM[facility]kim[facility] [place] [facility] eGFR >90 >=60 mL/min/1. 73m2 06/25/2024 8:07 AM EST [employer] MobileASSMEACM Capital PartnersRIMonkimun [facility] [place] [facility] Comment:The estimated glomer ular [...] MD LAB BLOOD ORDERABLES Fin al Result UMDermTech InternationalRIAL - [facility] CLIN[facility] PATHOLOGY LABORATORY [address] [place] [address], * (ABNORMAL) CBC Auto Differential (06/25/2024 6:41 [...] <0.01 <0.01 10*3/uL 06/25/2024 7:36 AM EST [facility] CLINICAL PATHOLOGY LABORATORY Blood Structure of peripheral vein / Unknown Venipuncture / Unknown 06/25/2024 6:41 AM EST 06/25/2024 7:29 AM EST Alex Hines MD LAB BLOOD ORDERABLES Fin al Result Performing Organization Address City/[facility]/ZIP Co de Phone Number [facility] CLINICAL PATHOLOGY LABORATORY [address] [place] [address], [place] * (ABNORMAL) POCT Glucose, interfaced (06/24/2024 10:09 PM EST) Glucose, POCT 115(H) 70 - 99 mg/dL 06/24/2024 10:10 PM EST [facility] Comment: The vendette has not determined the efficacy of this test in Critically ill patients. ??[facility] defines Critically ill patients for the [...] DEVICE Fin al Result Performing Organization Address City/[facility]/ZIP Co de Phone Number [facility] [address] [place] [address], [place] * (ABNORMAL) Creatine Kinase (06/24/2024 7:45 PM EST) CK 2,447(H) 49 - 348 U/L 06/24/2024 8:43 PM EST [facility] CLINICAL PATHOLOGY LABORATORY Blood Structure of peripheral vein / Unknown Venipuncture / Unknown 06/24/2024 7:45 PM EST 06/24/2024 7:58 PM EST us Quintin Ng MD LAB BLOOD ORDERABLES Final Res ult Performing Organization Address City/[facility]/ZIP Co de Phone Number [facility] CLINICAL PATHOLOGY LABORATORY [address] [place] [address], [place] * (ABNORMAL) POCT Glucose, interfaced (06/24/2024 6:46 PM EST) Glucose, POCT 341(H) 70 - 99 mg/dL 06/24/2024 6:47 PM EST [facility] Comment: The vendette has not determined the efficacy of this test in Critically ill patients. ??[facility] defines Critically ill patients for the [...] DEVICE Fin al Result Performing Organization Address City/[facility]/ZIP Co de Phone Number [facility] [address] [place] [address], [place] * (ABNORMAL) POCT Glucose, interfaced (06/24/2024 12:44 PM EST) Glucose, POCT 243(H) 70 - 99 mg/dL 06/24/2024 12:45 PM EST [facility] Comment: The vendette has not determined the efficacy of this test in Critically ill patients. ??[facility] defines Critically ill patients for the [...] DEVICE Fin al Result Performing Organization Address City/State/[facility] Co de Phone Number [facility] [address] [place] [address], * (ABNORMAL) POCT Glucose, interfaced (06/24/2024 7:16 AM EST) [facility] Glucose, POCT 228(H) 70 - 99 mg/dL 06/24/2024 7:17 AM EST [facility] Comment: The vendette has not determined the efficacy of this test in Critically ill patients. ??[facility] defines Critically ill patients for the [...] DEVICE F inal Result Performing Organization Address City/[facility]/ZIP Co de Phone Number [facility] [address] [place] [address], [place] * (ABNORMAL) Creatine Kinase (06/24/2024 6:07 AM EST) CK 3,647(H) 49 - 348 U/L 06/24/2024 7:34 AM EST [facility] CLINICAL PATHOLOGY LABORATORY Blood Structure of peripheral vein / Unknown Venipuncture / Unknown 06/24/2024 6:07 AM EST 06/24/2024 6:40 AM EST us Quintin Ng MD LAB BLOOD ORDERABLES Final Res ult Performing Organization Address [facility] Co de Phone Number [facility] CLINICAL PATHOLOGY LABORATORY [address] [place] [address], [place] * (ABNORMAL) Phosphorus (06/24/2024 6:07 AM EST) Phosphorus 2.2(L) 2.5 - 4.5 mg/dL 06/24/2024 7:29 AM EST [employer] PATHOLOGY LABORATORY Blood Structure of peripheral vein / Unknown Venipuncture / Unknown 06/24/2024 6:07 AM EST 06/24/2024 6:40 AM EST Alex Hines MD LAB BLOOD ORDERABLES Fin al Result Performing Organization Address City/[facility]/ZIP Co de Phone Number [facility] CLINICAL PATHOLOGY LABORATORY [address] [place] [address], [place] * Magnesium (06/24/2024 6:07 AM EST) MG 2.1 1.6 - 2.4 mg/dL 06/24/2024 7:29 AM EST [facility] CLIN[facility] PATHOLOGY LABORATORY Blood Structure of peripheral vein / Unknown Venipuncture / Unknown 06/24/2024 6:07 AM EST 06/24/2024 6:40 AM EST us Alex Hines MD LAB BLOOD ORDERABLES Fin al Result [facility] CLINICAL PATHOLOGY LABORATORY [address] [place] [address], * (ABNORMAL) Basic metabolic panel (06/24/2024 6:07 AM EST) NA 139 135 - 145 mmol/L 06/24/2024 7:29 AM EST [facility] K 4.0 3.5 - 5.3 mmol/L 06/24/2024 7:29 AM EST [facility] Cl 104 98 - 107 mmol/L 06/24/2024 7:29 AM EST [facility] CO2 27 22 - 32 mmol/L 06/24/2024 7:29 AM EST [facility] LAB[facility] BUN 14 7 - 23 mg/dL 06/24/2024 7:29 AM EST [facility] Creatinine 1.00 0.60 - 1.30 mg/dL 06/24/2024 7:29 AM EST [facility] Glucose 234(H) 65 - 99 mg/dL 06/24/2024 7:29 AM EST [facility] Calcium 8.7 8.6 - 10.5 mg/dL 06/24/2024 7:29 AM EST [facility] Anion Gap 8 5 - 15 06/24/2024 7:29 AM EST [facility] eGFR >90 >=60 mL/min/1. 73m2 06/24/2024 7:29 AM EST [facility] Comment:The estimated glomer ular [...] MD LAB BLOOD ORDERABLES Fin al Result [employer] LAB[facility]ORY [address] [place] [address], * (ABNORMAL) CBC Auto Differential (06/24/2024 6:07 AM EST) WBC 6.8 3.8 - 10.8 10*3/uL 06/24/2024 6:46 AM EST [facility] RBC 3.79(L) 4.20 - 5.80 10*6/uL 06/24/2024 6:46 AM EST [facility] Hemoglobin 9.3(L) 13.2 - 17.1 g/dL 06/24/2024 6:46 AM EST [facility] Hematocrit 28.7(L) 38.5 - 50.0 % 06/24/2024 6:46 AM EST [facility] MCV 75.7(L) 80.0 - 100.0 fL 06/24/2024 6:46 AM EST [facility] MCH 24.5(L) 27.0 - 33.0 pg 06/24/2024 6:46 AM EST [facility] MCHC 32.4 32.0 - 36.0 g/dL 06/24/2024 6:46 AM EST [employer] [facility]ASSMEACM [facility] PartnersRI[facility] CL[facility] PATHOLOGY LABORATORY RDW 15.3(H) [...] 0.20 10*3/uL 06/24/2024 6:46 AM EST [facility] [employer] CLINICAL PATHOLOGY LABORATORY nRBC % 0.0 /100 WBCs 06/24/2024 6:46 AM EST [facility] [employer] CLINICAL PATHOLOGY LABORATORY nRBC # <0.01 <0.01 10*3/uL 06/24/2024 6:46 AM EST [facility]FIELDACM [facility] PartnersK[facility] [employer] [facility] PATHOLOGY LABORATORY Blood Structure of peripheral vein / Unknown Venipuncture / Unknown 06/24/2024 6:07 AM EST 06/24/2024 6:40 AM EST us Alex Hines MD LAB BLOOD ORDERABLES Fin al Result Performing Organization Address [facility]/ZIP Co de Phone Number [facility] [employer] CLINICAL PATHOLOGY LABORATORY [address] [place] [address], * (ABNORMAL) Creatine Kinase (06/23/2024 8:21 PM EST) CK 5,128(H) 49 - 348 U/L 06/23/2024 10:25 PM EST [facility]FIELDJianshuCO [place] [facility] [place] [facility] PATHOLOGY LAB[facility]AT[facility] Blood Structure of peripheral vein / Unknown Venipuncture / Unknown 06/23/2024 8:21 PM EST 06/23/2024 9:29 PM EST us Quintin Ng MD LAB BLOOD ORDERABLES Final Res ult Performing Organization Address [facility]/ZIP Co de Phone Number [facility]ITALwrenchguys mobileCO [employer] CLINICAL PATHOLOGY LABORATORY [address] [place] [address], [place] * (ABNORMAL) POCT Glucose, interfaced (06/23/2024 4:57 PM EST) Glucose, POCT 314(H) 70 - 99 mg/dL 06/23/2024 4:57 PM EST [facility] Comment: The vendette has not determined the efficacy of this test in Critically ill patients. ??[facility] defines Critically ill patients for the [...] F inal Result Performing Organization Address [facility] Co de Phone Number [facility] [address] [place] [address], [place] * UA [place] Top (06/23/2024 4:20 PM EST) Extra Tube Hold for add-ons. 06/23/2024 9:05 PM EST [facility] CLINICAL PATHOLOGY LABORATORY Comment:Auto resulted. Urine Urine specimen collection, clean catch / Unknown 06/23/2024 4:20 PM EST 06/23/2024 4:20 PM EST Quintin Ng MD LAB BLOOD ORDERABLES Final Res ult Performing Organization Address [facility] Co de Phone Number [employer] CLINICAL PATHOLOGY LABORATORY [address] [place] [address], [place] * Propoxyphene Screen, Urine (06/23/2024 4:11 PM EST) Propoxyphene Screen, Urine NEGATIVE <300 ng/mL 06/24/2024 5:13 AM EST [email or web address] Comment: See Note 2 Note 1 This drug testing is for medical treatment only. ?? Analysis was performed as non-forensic testing and these results should be used only by healthcare providers to render diagnosis or treatment, or to monitor progress of medical conditions. For assistance with interpreting these drug results, please contact a [employer] Toxicology Specialist: [phone] ( ), M-F, 8am-6pm EST. Note [...] interpreting these drug results, please contact a [employer] Toxicology Specialist: [phone] ( ), M-F, 8am-6pm EST. Urine Voided urine specimen / Unknown Non-Blood Collection / Unknown 06/23/2024 4:11 PM EST 06/23/2024 4:18 PM EST Narrative [employer] JOSSELINE - 06/24/2024 5:13 AM EST [facility] Received Date: Quintin Ng MD LAB URINE ORDERABLES Final Res ult Performing Organization Address City/[facility]/ZIP Co de Phone Number [facility] [address] [facility] [address], [place] [address], [place] [phone] [employer] [facility] [address] [facility] [address] [facility], [place] [address], [place] [phone] * Methadone Screen w/Confirmation, Urine (06/23/2024 4:11 PM EST) [facility] Methadone Metabolite Screen, Urine NEGATIVE <100 ng/mL 06/24/2024 5:13 AM EST [employer] [facility] Comment: See Note 1 Urine Voided urine specimen / Unknown Non-Blood Collection / Unknown 06/23/2024 4:11 PM EST 06/23/2024 4:18 PM EST Narrative [employer] SERGIOHIPOLITO - 06/24/2024 5:13 AM EST [facility] Received Date: us Quintin Ng MD LAB URINE ORDERABLES Final Res ult [facility] [address] [facility] [address] [facility], [place] [address], [place] [phone] [employer] [address], [place] [address], [place] [phone] * Benzodiazepine Qualitative Screen, Urine (06/23/2024 4:11 PM EST) Benzodiazepine Screen, Urine Negative Negative 06/23/2024 5:19 PM EST [facility] PATHOLOGY LABORATORY Comment: Detection limit of 200 ng/mL of Nordiazepam. Drug results are to be used only for medical purposes. ??Unconfirmed screening results must not be used for non-medical purposes. Urine Voided urine specimen / Unknown Non-Blood Collection / Unknown 06/23/2024 4:11 PM EST 06/23/2024 4:18 PM EST Quintin Ng MD LAB URINE ORDERABLES Final Res ult Performing Organization Address [facility] de Phone Number [employer] CLINICAL PATHOLOGY LABORATORY [address] [place] [address], [place] * Barbiturate Screen, Urine (06/23/2024 4:11 PM EST) Barbiturate Screen, Urine Negative Negative 06/23/2024 5:19 PM EST [facility] PATHOLOG[facility] LAB[facility] Comment: Detection limit of [...] Final Res ult Performing Organization Address [facility] Co de Phone Number [facility] [employer] CLINICAL PATHOLOGY LABORATORY [address] [place] [address], [place] * Phencyclidine (PCP) Screen, Urine (06/23/2024 4:11 PM EST) Phencyclidine Screen, Urine NEGATIVE <25 ng/mL 06/24/2024 5:13 AM EST [facility] Comment: See Note 2 Urine Voided urine specimen / Unknown Non-Blood Collection / Unknown 06/23/2024 4:11 PM EST 06/23/2024 4:18 PM EST Narrative [facility] - 06/24/2024 5:13 AM EST [facility] Received Date: Quintin Ng MD LAB URINE ORDERABLES Final Res ult Performing Organization Address City/[facility]/ZIP Co de Phone Number [facility] [address] [facility] [address], [place] [address], [place] [phone] [employer] [address], [place] [address], [place] [phone] * Marijuana Qualitative Screen, Urine (06/23/2024 4:11 PM EST) Marijuana Screen, Urine Negative Negative 06/23/2024 5:19 PM EST [facility] PATHOLOG[facility] LAB[facility] Comment: Detection limit of 50 ng/mL of 35-Xos-[id number]-7-RCS-2-carboxylic acid. Drug results are to be used only for medical purposes. ??Unconfirmed screening results must not be used for non-medical purposes. Urine Voided urine specimen / Unknown Non-Blood Collection / Unknown 06/23/2024 4:11 PM EST 06/23/2024 4:18 PM EST Quintin Ng MD LAB URINE ORDERABLES Final Res ult [employer] CLINICAL PATHOLOGY LABORATORY [address] [place] [address], [place] * Morphine and Codeine Confirmation, Urine (06/23/2024 4:11 PM EST) Codeine, Urine NEGATIVE <50 ng/mL 06/25/2024 9:46 AM EST [employer] [facility] Comment: See Note 1 Hydrocodone, Urine NEGATIVE <50 ng/mL 06/25/2024 9:46 AM EST [employer] [facility] Comment: See Note 1 Hydromorphone, Urine NEGATIVE <50 ng/mL 06/25/2024 9:46 AM EST [employer] [facility] Comment: See Note 1 Morphine, Urine NEGATIVE <50 ng/mL 9:46 AM EST [employer] [facility] Comment: See Note 1 Norhydrocodone, Urine NEGATIVE <50 ng/mL 06/25/2024 9:46 AM EST [employer] [facility] Comment: See Note 1 See Note 2 Note 1 This test was developed and its analytical performance characteristics have been determined by [employer]. It has not been cleared or approved [...] interpreting these drug results, please contact a [employer] [facility] [employer] Toxicology Specialist: [phone] ( ), M-F, 8am-6pm EST. Urine Voided urine specimen / Unknown Non-Blood Collection / Unknown 06/23/2024 4:11 PM EST 06/23/2024 4:18 PM EST [facility] - 06/25/2024 9:46 AM EST [facility] Received Date: Quintin Ng MD LAB URINE ORDERABLES Final Res ult [facility] [address] [facility] [address], [place] [address], [place] [phone] [employer] [facility] [address] [facility] 3rd Floor, [place] [address], [place] [phone] * (ABNORMAL) Cocaine Qualitative, Urine (06/23/2024 4:11 PM EST) [facility] Cocaine Metabolite Screen, Urine Presumptive Positive(A) Negative 06/23/2024 5:19 PM EST [facility] PATHOLOG[facility] LABORAT[facility] Comment: Detection limit of 300 ng/mL of Benzoylecgonine. Drug results are to be used only for medical purposes. ??Unconfirmed screening results must not be used for non-medical purposes. Urine Voided urine specimen / Unknown Non-Blood Collection / Unknown 06/23/2024 4:11 PM EST 06/23/2024 4:18 PM EST Quintin Ng MD LAB URINE ORDERABLES Final Res ult Performing Organization Address [facility] de Phone Number [facility] CLINICAL PATHOLOGY LABORATORY [address] [place] [address], [place] * Amphetamine Qualitative, Urine (06/23/2024 4:11 PM EST) [facility] Amphetamine Screen, Urine Negative Negative 06/23/2024 5:19 PM EST [facility] Comment: Detection limit of 1000 ng/mL of d-Methamphetamine. Drug results are to be used only for medical purposes. ??Unconfirmed screening results must not be used for non-medical purposes. Urine Voided urine specimen / Unknown Non-Blood Collection / Unknown 06/23/2024 4:11 PM EST 06/23/2024 4:18 PM EST Quintin Ng MD LAB URINE ORDERABLES Final Res ult Performing Organization Address [facility] Co de Phone Number [facility] CLINICAL PATHOLOGY LABORATORY [address] [place] [address], [place] * (ABNORMAL) POCT Glucose, interfaced (06/23/2024 12:22 PM EST) [facility] Glucose, POCT 281(H) 70 - 99 mg/dL 06/23/2024 12:24 PM EST [facility] Comment: The vendette has not determined the efficacy of this test in Critically ill patients. ??[facility] defines Critically ill patients for the [...] F inal Result Performing Organization Address [facility] de Phone Number [facility] [address] [place] [address], * (ABNORMAL) POCT Glucose, interfaced (06/23/2024 7:50 AM EST) [facility] Glucose, POCT 276(H) 70 - 99 mg/dL 06/23/2024 7:51 AM EST [facility] Comment: The vendette has not determined the efficacy of this test in Critically ill patients. ??[facility] defines Critically ill patients for the [...] Address [facility]/State/ZIP Co de Phone Number [facility] [address] [place] [address], [place] * Folate (06/23/2024 7:46 AM EST) Folate 15.0 4.8 - 24.2 ng/mL 06/23/2024 2:56 PM EST [facility] Blood Structure of peripheral vein / Unknown Venipuncture / Unknown 06/23/2024 7:46 AM EST 06/23/2024 7:51 AM EST Quintin Ng MD LAB BLOOD ORDERABLES Final Res ult [facility] PATH[facility] LABORATORY [address] [place] [address], [place] * Vitamin B12 (06/23/2024 7:46 AM EST) Vitamin B12 584 232 - 1,245 pg/mL 06/23/2024 2:56 PM EST [employer] [facility] CLINICAL PATHOLOGY LABORATORY Blood Structure of peripheral vein / Unknown Venipuncture / Unknown 06/23/2024 7:46 AM EST 06/23/2024 7:51 AM EST Quintin Ng MD LAB BLOOD ORDERABLES Final Res ult [employer] CLINICAL PATHOLOGY LABORATORY [address] [place] [address], [place] * TSH Reflex Free T4 (06/23/2024 7:46 AM EST) TSH 0.337 0.280 - 3.890 uIU/mL 06/23/2024 2:56 PM EST [facility] PATHOLOG[facility] Blood Structure of peripheral vein / Unknown Venipuncture / Unknown 06/23/2024 7:46 AM EST 06/23/2024 7:51 AM EST Quintin Ng MD LAB BLOOD ORDERABLES Final Res ult Performing Organization Address [facility] Co de Phone Number [facility] CLINICAL PATHOLOGY LABORATORY [address] [place] [address], * (ABNORMAL) Creatine Kinase (06/23/2024 7:46 AM EST) CK 7,402(H) 49 - 348 U/L 06/23/2024 10:11 AM EST [facility] PATHOLOG[facility] LABORAT[facility] Blood Structure of peripheral vein / Unknown Venipuncture / Unknown 06/23/2024 7:46 AM EST 06/23/2024 7:51 AM EST Alex Hines MD LAB BLOOD ORDERABLES Fin al Result Performing Organization Address [facility] de Phone Number [facility] [address] [place] [address], [place] * (ABNORMAL) Phosphorus (06/23/2024 7:46 AM EST) Phosphorus 1.7(L) 2.5 - 4.5 mg/dL 06/23/2024 10:05 AM EST [facility] Blood Structure of peripheral vein / Unknown Venipuncture / Unknown 06/23/2024 7:46 AM EST 06/23/2024 7:51 AM EST Alex Hines MD LAB BLOOD ORDERABLES Fin al Result Performing Organization Address [facility] Co de Phone Number [facility] [address] [place] [address], [place] * Magnesium (06/23/2024 7:46 AM EST) MG 2.2 1.6 - 2.4 mg/dL 06/23/2024 10:05 AM EST [facility] Blood Structure of peripheral vein / Unknown Venipuncture / Unknown 06/23/2024 7:46 AM EST 06/23/2024 7:51 AM EST us Alex Hines MD LAB BLOOD ORDERABLES Fin al Result [facility] [address] [place] [address], * (ABNORMAL) Basic metabolic panel (06/23/2024 7:46 AM EST) NA 138 135 - 145 mmol/L 06/23/2024 10:05 AM EST [facility] K 4.4 3.5 - 5.3 mmol/L 06/23/2024 10:05 AM EST [facility] Cl 102 98 - 107 mmol/L 06/23/2024 10:05 AM EST [facility] CO2 26 22 - 32 mmol/L 06/23/2024 10:05 AM EST [facility] BUN 21 7 - 23 mg/dL 06/23/2024 10:05 AM EST [facility] Creatinine 1.06 0.60 - 1.30 mg/dL 06/23/2024 10:05 AM EST [facility] Glucose 259(H) 65 - 99 mg/dL 06/23/2024 10:05 AM EST [facility] Calcium 8.8 8.6 - 10.5 mg/dL 06/23/2024 10:05 AM EST [facility] Anion Gap 10 5 - 15 06/23/2024 10:05 AM EST [facility] eGFR >90 >=60 mL/min/1. 73m2 06/23/2024 10:05 AM EST [facility] Comment:The estimated glomer ular [...] Fin al Result Performing Organization Address [facility]/ZIP Co de Phone Number [facility] [address] [place] [address], * (ABNORMAL) Hemoglobin A1c (06/23/2024 7:46 AM EST) Hemoglobin A1C 7.9(H) <5.7 % of total Hgb 06/23/2024 12:45 PM EST [email or web address] Comment: For someone without known diabetes, a [...] (MG/DL) 180 mg/dL 06/23/2024 12:45 PM EST [email or web address] eAG (MMOL/L) 10.0 mmol/L 06/23/2024 12:45 PM EST [email or web address] Blood Structure of peripheral vein / Unknown Venipuncture / Unknown 06/23/2024 7:46 AM EST 06/23/2024 7:46 AM EST Narrative [facility] - 06/23/2024 12:45 PM EST [facility] Received Date: Alex Hines MD LAB BLOOD ORDERABLES Fin al Result [facility] [address] [address], [place] [address], [place] [phone] [facility] [address] [facility] 3rd Floor, [place] [address], [place] [phone] * (ABNORMAL) CBC Auto Differential (06/23/2024 7:45 [...] <0.01 <0.01 10*3/uL 06/23/2024 9:36 AM EST [facility] Blood Structure of peripheral vein / Unknown Venipuncture / Unknown 06/23/2024 7:45 AM EST 06/23/2024 7:52 AM EST Alex Hines MD LAB BLOOD ORDERABLES Fin al Result [facility] [address] [place] [address], * Hepatitis C Antibody w/Reflex to HCV RNA, Quantitative PCR (06/23/2024 7:44 AM EST) Hepatitis C Antibody NON-REACT ZAINA NON-REACT ZAINA 06/23/2024 9:10 PM EST [facility] Comment: HCV antibody was non-reactive. There is no laboratory evidence of HCV infection. In most cases, no further action is required. However, if recent HCV exposure is suspected, a test for HCV RNA (test code 15962) is suggested. For additional information please refer to http://education.Midisolaire/faq/JFP64j7 (This link is being provided for informational/ educational purposes only.) Blood Structure of peripheral vein / Unknown Venipuncture / Unknown 06/23/2024 7:44 AM EST 06/23/2024 7:45 AM EST Narrative [facility] - 06/23/2024 9:10 PM EST [facility] Received Date: Alex Hines MD LAB BLOOD ORDERABLES Fin al Result Performing Organization Address City/[facility]/ZIP Co de Phone Number [facility] [address] [address] [facility], [place] [address], [place] [phone] [facility] [address], [place] [address], [place] [phone] * (ABNORMAL) Creatine Kinase (06/23/2024 12:13 AM EST) CK 9,504(H) 49 - 348 U/L 06/23/2024 2:13 AM EST [facility] Blood Structure of peripheral vein / Unknown Venipuncture / Unknown 06/23/2024 12:13 AM EST 06/23/2024 1:22 AM EST Alex Hines MD LAB BLOOD ORDERABLES Fin al Result Performing Organization Address [facility]/ZIP Co de Phone Number [facility] [address] [place] [address], [place] * (ABNORMAL) POCT Glucose, interfaced (06/22/2024 10:19 PM EST) Glucose, POCT 288(H) 70 - 99 mg/dL 06/22/2024 10:20 PM EST [facility] Comment: The vendette has not determined the efficacy of this test in Critically ill patients. ??[facility] defines Critically ill patients for the [...] VICE Final Result Performing Organization Address [facility] Co de Phone Number [facility] [address] [place] [address], [place] * Navarro Top, Urine (06/22/2024 7:38 PM EST) Extra Tube Hold for add-ons. 06/23/2024 1:06 AM EST [facility] Comment:Auto resulted. Urine Urine specimen collection, clean catch / Unknown Non-Blood Collection / Unknown 06/22/2024 7:38 PM EST 06/22/2024 7:49 PM EST us Alex Hines MD LAB URINE ORDERABLES Fin al Result [facility] [address] [place] [address], * (ABNORMAL) Urinalysis W/Reflex to Microscopic & Culture (06/22/2024 7:38 PM EST) Color, Urine Light Yellow Colorless, Light Yellow, Yellow, Dark Yellow 06/22/2024 8:17 PM EST [facility] Clarity, Urine Clear Clear 06/22/2024 8:17 PM EST [facility] Specific [place], Urine 1.020 1.005 - 1.030 06/22/2024 8:17 PM EST [facility] pH, Urine 6.0 4.6 - 8.0 06/22/2024 8:17 PM EST [facility]MDermTech International[facility] Protein, Urine Negative Negative 06/22/2024 8:17 PM EST [facility]MDerm[facility] International[facility] Glucose, Urine 3+(A) Negative 06/22/2024 8:17 PM EST UMDermTech International[facility] Ketones, Urine 1+(A) Negative 06/22/2024 8:17 PM EST [facility] Bilirubin, Urine Negative Negative 06/22/2024 8:17 PM EST [facility] Blood, Urine 2+(A) Negative 06/22/2024 8:17 PM EST [facility] Nitrite, Urine Negative Negative 06/22/2024 8:17 PM EST [facility] Urobilinogen, Urine Normal Normal 06/22/2024 8:17 PM EST UMDermTech InternationalRI[facility] Leukocyte Esterase, Urine Negative Negative 06/22/2024 8:17 PM EST [facility] WBC, Urine <1 0 - 2 /HPF 06/22/2024 8:17 PM EST [facility] RBC, Urine <1 0 - 2 /HPF 06/22/2024 8:17 PM EST [facility] Hyaline Casts, Urine 0 0 - 2 /LPF 06/22/2024 8:17 PM EST [facility] Bacteria, Urine None None /HPF /HPF 06/22/2024 8:17 PM EST [facility] Urine Urine specimen collection, clean catch / Unknown Non-Blood Collection / Unknown 06/22/2024 7:38 PM EST 06/22/2024 7:49 PM EST Alex Hines MD LAB URINE ORDERABLES Fin al Result [facility] [address] [place] [address], * Blood Culture, Peripheral #2 (06/22/2024 6:42 PM EST) Culture No growth after 5 days 06/27/2024 10:22 PM EST [facility] Blood Structure of peripheral vein / Unknown Venipuncture / Unknown 06/22/2024 6:42 PM EST 06/22/2024 7:04 PM EST Narrative [facility] - 06/27/2024 10:22 PM EST [facility] Received Date: MICRO NUMBER: [id number] SPECIMEN QUALITY: Suboptimal SOURCE: BLOOD VENOUS, PERIPHERAL STATUS: FINAL COMMENT: Aerobic and anaerobic bottle received. Inspection of blood culture bottles indicates that an inadequate volume of blood may have been collected for the detection of sepsis. Alex Hines MD LAB MICROBIOLOGY - GENER AL ORDERABLES Final Result [facility] [address] [address], [place] [address], [place] [phone] [facility] [address] [facility] 3rd Floor, [place] [address], [place] [phone] * Blood Culture, Peripheral #1 (06/22/2024 6:42 PM EST) Pathologist [facility] Culture No growth after 5 days 06/27/2024 10:11 PM EST [facility] Blood Structure of peripheral vein / Unknown Venipuncture / Unknown 06/22/2024 6:42 PM EST 06/22/2024 7:04 PM EST Narrative [facility] - 06/27/2024 10:11 PM EST [facility] Received Date: MICRO NUMBER: [id number] SPECIMEN QUALITY: Suboptimal SOURCE: BLOOD VENOUS, PERIPHERAL STATUS: FINAL COMMENT: Aerobic and anaerobic bottle received. Inspection of blood culture bottles indicates that an inadequate volume of blood may have been collected for the detection of sepsis. Alex Hines MD LAB MICROBIOLOGY - GENER AL ORDERABLES Final Result Performing Organization Address City/[facility]/ZIP Co de Phone Number [facility] [address], [place] [address], [place] [phone] [facility] [address] [facility] [address] Floor, [place] [address], [place] [phone] * (ABNORMAL) Creatine Kinase (06/22/2024 3:13 PM EST) Pathologist [facility] CK 12,274(H) 49 - 348 U/L 06/22/2024 4:01 PM EST [facility] Blood Structure of peripheral vein / Unknown Venipuncture / Unknown 06/22/2024 3:13 PM EST 06/22/2024 3:19 PM EST Sofía Hardy MD LAB BLOOD ORDERABLES Final Result [facility] Capital PartnersWVVictor[facility] [address] [place] [address], [place] * (ABNORMAL) BMP - Basic Metabolic Panel (06/22/2024 3:13 PM EST) Pathologist [facility] NA 136 135 - 145 mmol/L 06/22/2024 [...] [facility] [address] [place] [address], * X-Ray Hand Left 3+ Views (06/22/2024 [...] obtain the completed interpretation. ? Workstation ID: [id number] Narrative 06/22/2024 2:06 PM EST COMPARISON: ??None. ?? FINDINGS AND Resulting Agency Comment [id number] Procedure Note Antonia Wayne MD - 06/22/2024 COMPARISON: None. FINDINGS AND IMPRESSION: No acute fracture or dislocation. Alignment and joint spaces aremaintained. Soft tissues are within normal limits. If this radiology report contains a blank impression section, it is anincomplete radiology report. Please contact the interpreting radiologistor applicable radiology division as soon as possible to obtain thecompleted interpretation. Workstation ID: [id number] Sofía Hardy MD IMG XR PROCEDURES Final Res ult * ECG 12 lead (06/22/2024 1:31 PM EST) Ventricular Rate EKG 86 BPM MUSE EKG Atrial Rate 86 BPM MUSE EKG WA Interval 132 ms MUSE EKG QRS Interval 90 ms MUSE EKG QT Interval 362 ms MUSE EKG QTC Interval 433 ms MUSE EKG P [place] 53 degrees MUSE EKG R [place] 30 degrees MUSE EKG T Wave [place] 33 degrees MUSE EKG 06/22/2024 1:31 PM EST 07/01/2024 12:59 PM EST Impressions MUSE EKG - 07/01/2024 12:59 PM EST NORMAL SINUS RHYTHM NORMAL ECG WHEN COMPARED WITH ECG OF 22-JUN-2024 08:12, (UNCONFIRMED) PREVIOUS ECG HAS UNDETERMINED RHYTHM, NEEDS REVIEW Confirmed by Ulises Thompson ([id number]) on 07/01/2024 12:59:17 PM us Sofía Hardy MD ECG ORDERABLES Final Resul t MUSE EKG * Lactic Acid, Plasma (06/22/2024 10:59 AM EST) Lactic Acid 1.6 0.5 - 1.9 mmol/L 06/22/2024 11:47 AM EST [facility] Blood Structure of peripheral vein / Unknown Venipuncture / Unknown 06/22/2024 10:59 AM EST 06/22/2024 11:17 AM EST us Sofía Hardy MD LAB BLOOD ORDERABLES Final Result Performing Organization Address [facility] de Phone Number [facility] [address] [place] [address], * CT C-Spine WO Contrast (06/22/2024 8:55 [...] obtain the completed interpretation. ? Workstation ID: [id number] Up-to-date CT equipment and radiation dose reduction techniques were employed. CTDIvol: 26.2 - 70.4 mGy. DLP: 2128 mGy-cm. ??The following accession numbers are related to this dose report [id number]: [id number] Narrative 06/22/2024 9:50 AM EST COMPARISON: No [...] tissues are unremarkable. ?? Resulting Agency Comment [id number] Procedure Note Paulo Osuna, DO - 06/22/2024 [...] possible to obtain thecompleted interpretation. Workstation ID: [id number] Up-to-date CT equipment and radiation dose reduction techniques wereemployed. CTDIvol: 26.2 - 70.4 mGy. DLP: 2128 mGy-cm. The followingaccession numbers are related to this dose report [id number]: [id number] us Sofía Hardy MD IMG CT PROCEDURES [...] obtain the completed interpretation. ? Workstation ID: [id number] Up-to-date CT equipment and radiation dose reduction techniques were employed. CTDIvol: 26.2 - 70.4 mGy. DLP: 2128 mGy-cm. ??The following accession numbers are related to this dose report [id number]: [id number] Narrative 06/22/2024 9:48 AM EST TECHNIQUE: 3D [...] cells are well aerated. Resulting Agency Comment [id number] Procedure Note Paulo Osuna, DO - 06/22/2024 [...] possible to obtain thecompleted interpretation. Workstation ID: [id number] Up-to-date CT equipment and radiation dose reduction techniques wereemployed. CTDIvol: 26.2 - 70.4 mGy. DLP: 2128 mGy-cm. The followingaccession numbers are related to this dose report [id number]: [id number] Sofía Hardy MD IMG CT PROCEDURES Final Res ult * ECG 12 lead (06/22/2024 8:12 AM EST) Ventricular Rate EKG 84 BPM MUSE EKG Atrial Rate 83 BPM MUSE EKG WA Interval 140 ms MUSE EKG QRS Interval 84 ms MUSE EKG QT Interval 384 ms MUSE EKG QTC Interval 453 ms MUSE EKG P [place] 55 degrees MUSE EKG R [place] 28 degrees MUSE EKG T Wave [place] 50 degrees MUSE EKG 06/22/2024 8:12 AM [...] SARS CoV-2 RNA Not Detected Not Detected [employer] [facility] 06/22/2024 8:57 AM EST [facility] Comment:A Not Detected (Nega [...] Detected [employer] 06/22/2024 8:57 AM EST [facility] Comment:Negative results do not preclude infection and should not be used as the sole basis for diagnosis, treatment or other patient management decisions. Negative results must be combined with clinical observations, patient history, and/or epidemiological information. Flu B RNA PCR Not Detected Not Detected [facility] [facility] 06/22/2024 8:57 AM EST [facility] Comment:Negative results do not preclude infection and should not be used as the sole basis for diagnosis, treatment or other patient management decisions. Negative results must be combined with clinical observations, patient history, and/or epidemiological information. RSV RNA PCR Not Detected Not Detected [employer] 06/22/2024 8:57 AM EST [facility] Comment:Negative results do not preclude infection and should not be used as the sole basis for diagnosis, treatment or other patient management decisions. Negative results must be combined with clinical observations, patient history, and/or epidemiological information. Swab (Nares) Non-Blood Collection / Unknown 06/22/2024 8:10 AM EST 06/22/2024 8:10 AM EST Narrative [facility] - 06/22/2024 8:57 AM EST This test was developed, validated and its performance characteristics determined by [facility] Clinical Labs. This test has not been cleared or approved by the U.S. Food and Drug Administration (FDA). FDA Policy for Diagnostic Tests for Coronavirus Disease-2019 during the Public Health Emergency issued August 04, 2019, is followed. us Sofía Hardy MD LAB BODY FLUIDS AND STOOLS ORDERABLES Final Result [facility] [address] [place] [address], * Ethanol (06/22/2024 8:08 AM EST) Ethanol <10 <10 mg/dL 06/22/2024 8:45 AM EST [facility] Blood Structure of peripheral vein / Unknown Venipuncture / Unknown 06/22/2024 8:08 AM EST 06/22/2024 8:12 AM EST Sofía Hardy MD LAB BLOOD ORDERABLES Final Result Performing Organization Address [facility] Co de Phone Number [facility] [address] [place] [address], [place] * (ABNORMAL) Creatine Kinase (06/22/2024 8:08 AM EST) CK 17,563(H) 49 - 348 U/L 06/22/2024 8:59 AM EST [facility] Blood Structure of peripheral vein / Unknown Venipuncture / Unknown 06/22/2024 8:08 AM EST 06/22/2024 8:12 AM EST Soífa Hardy MD LAB BLOOD ORDERABLES Final Result Performing Organization Address [facility] Co de Phone Number [facility] [address] [place] [address], [place] * Lipase (06/22/2024 8:08 AM EST) Lipase 27 13 - 60 U/L 06/22/2024 8:48 AM EST [facility] Blood Structure of peripheral vein / Unknown Venipuncture / Unknown 06/22/2024 8:08 AM EST 06/22/2024 8:12 AM EST Sofía Hardy MD LAB BLOOD ORDERABLES Final Result Performing Organization Address [facility] Co de Phone Number [facility] [address] [place] [address], [place] * (ABNORMAL) Lactic Acid (w/Repeat if >2) - Sepsis (06/22/2024 8:08 AM EST) Lactic Acid 2.7(H) 0.5 - 1.9 mmol/L 06/22/2024 8:41 AM EST [facility] Blood Structure of peripheral vein / Unknown Venipuncture / Unknown 06/22/2024 8:08 AM EST 06/22/2024 8:13 AM EST us Sofía Hardy MD LAB BLOOD ORDERABLES Final Result [facility] [address] [place] [address], [place] * (ABNORMAL) CBC Auto Differential (06/22/2024 8:08 AM EST) WBC 10.9(H) 3.8 - 10.8 10*3/uL 06/22/2024 8:23 AM EST [facility] RBC 4.68 4.20 - 5.80 10*6/uL 06/22/2024 8:23 AM EST [facility] Hemoglobin 11.5(L) 13.2 - 17.1 g/dL 06/22/2024 8:23 AM EST [facility] Hematocrit 35.7(L) 38.5 - 50.0 % 06/22/2024 8:23 AM EST [facility] MCV 76.3(L) 80.0 - 100.0 fL 06/22/2024 8:23 AM EST [facility] MCH 24.6(L) 27.0 - 33.0 pg 06/22/2024 8:23 AM EST [facility] MCHC 32.2 32.0 - 36.0 g/dL 06/22/2024 8:23 AM EST [facility] RDW 15.3(H) 11.0 - 15.0 % 06/22/2024 8:23 AM EST [facility] Platelets 186 140 - 400 10*3/uL 06/22/2024 8:23 AM EST [facility] MPV 10.4 7.5 - [...] <0.01 <0.01 10*3/uL 06/22/2024 8:23 AM EST [facility] Blood Structure of peripheral vein / Unknown Venipuncture / Unknown 06/22/2024 8:08 AM EST 06/22/2024 8:13 AM EST us Sofía Hardy MD LAB BLOOD ORDERABLES Final Result [facility] [address] [place] [address], * (ABNORMAL) CMP - Comprehensive Metabolic Panel (06/22/2024 8:08 AM EST) NA 138 135 - 145 mmol/L 06/22/2024 8:48 AM EST [facility] K 4.7 3.5 - 5.3 mmol/L 06/22/2024 8:48 AM EST [facility] Cl 97(L) 98 - 107 mmol/L 06/22/2024 8:48 AM EST [facility] CO2 16(L) 22 - 32 mmol/L 06/22/2024 8:48 AM EST [facility] Anion Gap 25(H) 5 - 15 06/22/2024 8:48 AM EST [facility] Glucose 235(H) 65 - 99 mg/dL 06/22/2024 8:48 AM EST [facility] Creatinine 1.30 0.60 - 1.30 mg/dL 06/22/2024 8:48 AM EST [facility] Calcium 9.3 8.6 - 10.5 mg/dL 06/22/2024 8:48 AM EST [facility] Total Protein 8.1(H) 6.0 - 8.0 g/dL 06/22/2024 8:48 AM EST [facility] Albumin 4.5 3.5 - 5.2 g/dL 06/22/2024 8:48 AM EST [facility] Bilirubin, Total 0.5 0.2 - 1.2 mg/dL 06/22/2024 8:48 AM EST [facility] Alkaline Phosphatase 60 35 - 129 U/L 06/22/2024 8:48 AM EST [facility] [employer] [facility] LAB[facility] AST 314(H) 10 - 40 U/L 06/22/2024 8:48 AM EST [facility] [employer] [facility] LAB[facility] ALT 142(H) 10 - 40 U/L 06/22/2024 8:48 AM EST [facility] [employer] [facility] BUN 50(H) 7 - 23 mg/dL 06/22/2024 8:48 AM EST [facility] [employer] [facility] LAB[facility] eGFR 72 >=60 mL/min/1. 73m2 06/22/2024 8:48 AM EST [facility] [employer] [facility] Comment:The estimated glomer ular [...] g/dL 06/22/2024 8:48 AM EST [facility] [employer] [facility] LAB[facility] A/G Ratio 1.3(L) 1.5 - 3.0 06/22/2024 8:48 AM EST [facility] [employer] [facility] LAB[facility]ORY Blood Structure of peripheral vein / Unknown Venipuncture / Unknown 06/22/2024 8:08 AM EST 06/22/2024 8:12 AM EST us Sofía Hardy MD LAB BLOOD ORDERABLES Final Result [facility] [address] [place] [address], [place] * XR Chest Portable 1 View [...] obtain the completed interpretation. ? Workstation ID: [id number] Narrative 06/22/2024 8:14 AM EST COMPARISON: None. FINDINGS: Lines/Tubes/Devices: None. Lungs: No consolidation or pulmonary edema. Pleura: No pleural effusion. No pneumothorax. Heart/Mediastinum: The cardiac and mediastinal contours are normal. Bones/Soft tissues: No acute osseous abnormality. Resulting Agency Comment [id number] Procedure Note Paulo Osuna DO - 06/22/2024 [...] possible to obtain thecompleted interpretation. Workstation ID: [id number] us Sofía Hardy MD IMG XR PROCEDURES [...] abuse, unspecified drinking behavior Cocaine use disorder ([facility]) Opioid use disorder Frostbite of both feet Fever Fever, unspecified T2DM (type 2 diabetes mellitus) ([facility]) Type II or unspecified type diabetes mellitus without mention of complication, not stated as uncontrolled AVRIL (obstructive sleep apnea) Obstructive sleep apnea (adult) (pediatric) Suicidal ideation Intentional drug overdose ([facility]) Poisoning by unspecified drug or medicinal substance [...] Use)1930 (Not Given - Provider: Nora Pittman, OIL - Reason: Line In Use) 09 (Given [...] documented as of this encounter Care Teams Deputy Fire Chief Relationship Specialty Start Date End Date Dayne [address]ose [address] [place] [address] PCP - General 06/25/24 documented as of this encounter
--- OUTSIDE RECORDS SUMMARY | 2024-07-21 13:03 | XMS_ITS | Patient Health Record ---
Author Organization [facility] Address [address] [place], [place] [id number] Care Team Providers Care Cylindrical Mixer Name Role Phone RAEANN Domínguez Primary Care Provider UnavailAlexandr Meng Unavailable [phone] Allergies Allergen (clinical drug ingredient) Drug/Non Drug [...] Status W/U Status Risk Notes Problem Obesity (536128888) Obesity, BMI 30-39.9 (278.00) Active confirmed Problem Tobacco use (471172315) Tobacco use disorder (305.1) Active confirmed Problem Chronic mental disorder (541089396) MENTAL DISOR NEC OTH DIS (294.8) Active confirmed Problem Nondependent alcohol abuse (224693073) ALCOHOL ABUSE-UNSPEC (305.00) Active confirmed Problem Pneumococcal vaccine (860080720) Pneumococcal vaccine (V03.82) Active confirmed Plan Of Treatment No Information Insurance Providers Payer Name Payer Address Payer Phone Subscriber Number Group Number Insured Name Patient Relationship to Insured Coverage Start Date Coverage End Date [place] Standard [address] [place] [address] [id number] Luan Blanton Self - patient is the insured Medical (General) History Medical History History ICD Code depression Hospitalization History Reason Date(Month/Year) [facility] 2009 [facility] 2009
--- OUTSIDE RECORDS SUMMARY | 2024-07-21 13:03 | XMS_ITS | Clinical Summary ---
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 Role Phone Dayne Dubose Primary Care Provider Allergies Active Allergy Reactions Criticality Noted Date [...] drug rehab program before being discharged to [facility], more recently he is homeless and [...] drug rehab program before being discharged to [facility], more recently he is homeless and [...] fluffs between toes and loose Kerlix wraps -farm service adviser consulted Assessment & Plan (06/23/2024 2:36 PM [...] disorder (alcohol, cocaine, opioids), who presented to [facility] ED on 06/22/2024 after being [...] disorder (alcohol, cocaine, opioids), who presented to [facility] ED on 06/22/2024 after being [...] - 06/25/2024 9:01 PM EST Hospital Encounter [facility] Emergency Department [address] [place] [address] Sofía Hardy MD Darling, Chad E, MD [...] Screening 05/21/2024 Depression Screening and Follow-Up 05/21/2024 [employer] D[employer] of [employer] Natalia ual Screening 05/21/2024 Hemoglobin A1C 12/21/2024 06/23/2024 Basic Metabolic Panel 06/25/2025 06/25/2024 , 06/24/2024, 06/23/2024, Additional history exists DTaP,Tdap,and Td Vaccines (4 - Td or Tdap) 06/22/2034 06/22/2024, 08/06/2022, 05/24/2011 RSV Vaccine (60+ years old a nd patients) (1 - 1-dose 75+ series) 02/04/2060 HIV Screening Completed 06/23/2024 Hepatitis C Screening Completed 06/23/2024 Procedures * Due to [place] state law, this organization might not be [...] Last 3 Months Results * Due to [place] state law, this organization might not be sharing negative HIV tests. * (ABNORMAL) Creatine Kinase (06/25/2024 7:41 PM EST) Only the most recent of9 resultswithin the time period is included. CK 1,115(H) 49 - 348 U/L 06/25/2024 8:35 PM EST [employer] CL[facility]ICAL PATHOLOGY LABORATORY Blood Structure of peripheral vein / Unknown Venipuncture / Unknown 06/25/2024 7:41 PM EST 06/25/2024 8:05 PM EST us Quintin Ng MD LAB BLOOD ORDERABLES Final Res ult [employer] CL[facility]ICAL PATHOLOG[facility] LABORATORY [address] [place] [address], [place] * (ABNORMAL) POCT Glucose, interfaced (06/25/2024 5:00 PM EST) Only the most recent of11 resultswithin the time period is included. Glucose, POCT 312(H) 70 - 99 mg/dL 06/25/2024 5:01 PM EST [facility] Comment: The raw sampler has not determined the efficacy of this test in Critically ill patients. ??[facility] defines Critically ill patients for the [...] POCT ORDERABLES - DEVICE Fin al Result [facility], [facility] [address] [place] [address], [place] * (ABNORMAL) CBC Auto Differential (06/25/2024 6:41 AM EST) Only the most recent of4 resultswithin the time period is included. WBC 6.9 3.8 - 10.8 10*3/uL 06/25/2024 7:36 AM EST [facility] RBC 4.07(L) 4.20 - 5.80 10*6/uL 06/25/2024 7:36 AM EST [facility]ITALVigilant SolutionsNM [employer] CLINICAL PATHOLOGY LABORATORY Hemoglobin 10.1(L) 13.2 [...] <0.03 <=0.03 10*3/uL 06/25/2024 7:36 AM EST [facility] [employer] [facility] LAB[facility] Lymphocyte # 1.70 0.85 - 3.90 10*3/uL 06/25/2024 7:36 AM EST [facility]ap[facility]age[facility] [facility] Monocyte # 0.70 0.20 - 0.95 10*3/uL 06/25/2024 7:36 AM EST [facility] [employer] [facility] Eosinophil # 0.10 0.02 - 0.50 10*3/uL 06/25/2024 7:36 AM EST [facility] [employer] [facility] Basophil # <0.03 0.00 - 0.20 10*3/uL 06/25/2024 7:36 AM EST [facility] [employer] [facility] nRBC % 0.0 /100 WBCs 06/25/2024 7:36 AM EST [employer] CLINICAL PATHOLOGY LABORATORY nRBC # <0.01 <0.01 10*3/uL 06/25/2024 7:36 AM EST [employer] CLINICAL PATHOLOGY LABORATORY Blood Structure of peripheral vein / Unknown Venipuncture / Unknown 06/25/2024 6:41 AM EST 06/25/2024 7:29 AM EST Alex Brand MD LAB BLOOD ORDERABLES Fin al Result [facility]apEngageOH[facility] [employer] CL[facility]ICAL PATHOLOGY LABORATORY [address] [place] [address], * Phosphorus (06/25/2024 6:41 AM EST) Only the most recent of3 resultswithin the time period is included. Phosphorus 3.0 2.5 - 4.5 mg/dL 06/25/2024 8:07 AM EST [employer] CLINICAL PATHOLOGY LABORATORY Blood Structure of peripheral vein / Unknown Venipuncture / Unknown 06/25/2024 6:41 AM EST 06/25/2024 7:29 AM EST Alex Brand MD LAB BLOOD ORDERABLES Fin al Result Performing Organization Address City/[facility] Co de Phone Number [employer] CLINICAL PATHOLOGY LABORATORY [address] [place] [address] * Magnesium (06/25/2024 6:41 AM EST) Only the most recent of3 resultswithin the time period is included. MG 1.8 1.6 - 2.4 mg/dL 06/25/2024 8:07 AM EST [employer] CLINICAL PATHOLOGY LABORATORY Blood Structure of peripheral vein / Unknown Venipuncture / Unknown 06/25/2024 6:41 AM EST 06/25/2024 7:29 AM EST Alex Brand MD LAB BLOOD ORDERABLES Fin al Result Performing Organization Address [facility] de Phone Number [employer] CLINICAL PATHOLOGY LABORATORY [address] [place] [address] * (ABNORMAL) Basic metabolic panel (06/25/2024 6:41 AM EST) Only the most recent of4 resultswithin the time period is included. NA 140 135 - 145 mmol/L 06/25/2024 8:07 AM EST [employer] CLINICAL PATHOLOGY LABORATORY K 4.1 3.5 - 5.3 mmol/L 06/25/2024 8:07 AM EST [employer] CLINICAL PATHOLOGY LABORATORY Cl 103 98 - 107 mmol/L 06/25/2024 8:07 AM EST [employer] CLINICAL PATHOLOGY LABORATORY CO2 26 22 - 32 mmol/L 06/25/2024 8:07 AM EST [employer] CLINICAL PATHOLOGY LABORATORY BUN 11 7 - 23 mg/dL 06/25/2024 8:07 AM EST [employer] CLINICAL PATHOLOGY LABORATORY Creatinine 0.97 0.60 - 1.30 mg/dL 06/25/2024 8:07 AM EST [employer] CLINICAL PATHOLOGY LABORATORY Glucose 210(H) 65 - 99 mg/dL 06/25/2024 8:07 AM EST [email or web address] [facility]OLOG[facility] LABORATORY Calcium 9.2 8.6 - 10.5 mg/dL 06/25/2024 8:07 AM EST [facility]choSignOH[facility] [employer] CLINICAL PATHOLOGY LABORATORY Anion Gap 11 5 - 15 06/25/2024 8:07 AM EST [facility]ITALTapEngageOH[facility] [employer] CLINICAL PATHOLOGY LABORATORY eGFR >90 >=60 mL/min/1. 73m2 06/25/2024 8:07 AM EST [facility]ITALTapEngageOH[facility] [employer] CLINICAL PATHOLOGY LABORATORY Comment:The estimated glomer [...] MD LAB BLOOD ORDERABLES Fin al Result [facility]ITALTapEngageOH[facility] [employer] CLINICAL PATHOLOGY LABORATORY [address] [place] [address], * Preston Top (06/23/2024 4:20 PM EST) Extra Tube Hold for add-ons. 06/23/2024 9:05 PM EST [facility] LAB[facility] Comment:Auto resulted. Urine Urine specimen collection, clean catch / Unknown 06/23/2024 4:20 PM EST 06/23/2024 4:20 PM EST Quintin Ng MD LAB BLOOD ORDERABLES Final Res ult [employer] [facility] LABORATORY [address] [place] [address], [place] * Methadone Screen w/Confirmation, Urine (06/23/2024 4:11 PM EST) Methadone Metabolite Screen, Urine NEGATIVE <100 ng/mL 06/24/2024 5:13 AM EST [employer] Comment: See Note 1 Urine Voided urine specimen / Unknown Non-Blood Collection / Unknown 06/23/2024 4:11 PM EST 06/23/2024 4:18 PM EST Narrative [facility] - 06/24/2024 5:13 AM EST [facility] Received Date: Quintin Ng MD LAB URINE ORDERABLES Final Res ult [facility] [address] [facility] [address], [place] [address], [facility] [address] [facility] [address], [place] [address], [place] [phone] * Morphine and Codeine Confirmation, Urine (06/23/2024 4:11 PM EST) Codeine, Urine NEGATIVE <50 ng/mL 06/25/2024 9:46 AM EST [facility] Comment: See Note 1 Hydrocodone, Urine NEGATIVE <50 ng/mL 06/25/2024 9:46 AM EST [facility] Comment: See Note 1 Hydromorphone, Urine NEGATIVE <50 ng/mL 06/25/2024 9:46 AM EST [facility] Comment: See Note 1 Morphine, Urine NEGATIVE <50 ng/mL 9:46 AM EST [facility] Comment: See Note 1 Norhydrocodone, Urine NEGATIVE <50 ng/mL 06/25/2024 9:46 AM EST [facility] Comment: See Note 1 See Note 2 Note 1 This test was developed and its analytical performance characteristics have been determined by [employer]. It has not been cleared or approved [...] interpreting these drug results, please contact a [employer] Toxicology Specialist: [phone] ( ), M-F, 8am-6pm EST. Urine Voided urine specimen / Unknown Non-Blood Collection / Unknown 06/23/2024 4:11 PM EST 06/23/2024 4:18 PM EST Narrative [facility] - 06/25/2024 9:46 AM EST [facility] Received Date: us Quintin Ng MD LAB URINE ORDERABLES Final Res ult [facility] [address] [facility] [address] Floor, [place] [address], [place] [phone] [facility] [address] [facility] [address], [place] [address], [place] [phone] * Barbiturate Screen, Urine (06/23/2024 4:11 PM EST) Barbiturate Screen, Urine Negative Negative 06/23/2024 5:19 PM EST [employer] CLINICAL PATHOLOGY LABORATORY Comment: Detection limit of [...] MD LAB URINE ORDERABLES Final Res ult [employer] CLINICAL PATHOLOGY LABORATORY [address] [place] [address], [place] * Propoxyphene Screen, Urine (06/23/2024 4:11 PM EST) Propoxyphene Screen, Urine NEGATIVE <300 ng/mL 06/24/2024 5:13 AM EST [facility] Comment: See Note 2 Note 1 This drug testing is for medical treatment only. ?? Analysis was performed as non-forensic testing and these results should be used only by healthcare providers to render diagnosis or treatment, or to monitor progress of medical conditions. For assistance with interpreting these drug results, please contact a [employer] Toxicology Specialist: [phone] ( ), M-F, 8am-6pm EST. Note [...] interpreting these drug results, please contact a [employer] Toxicology Specialist: [phone] ( ), M-F, 8am-6pm EST. Urine Voided urine specimen / Unknown Non-Blood Collection / Unknown 06/23/2024 4:11 PM EST 06/23/2024 4:18 PM EST Narrative [facility] - 06/24/2024 5:13 AM EST [facility] Received Date: us Quintin Ng MD LAB URINE ORDERABLES Final Res ult [facility] [address] [facility] [address], [place] [address], [place] [phone] [facility] [address] [facility] [address], [place] [address], [place] [phone] * Marijuana Qualitative Screen, Urine (06/23/2024 4:11 PM EST) Marijuana Screen, Urine Negative Negative 06/23/2024 5:19 PM EST [employer] CL[facility]ICAL PATHOLOGY LABORATORY Comment: Detection limit of 50 ng/mL of 23-Ocg-ftuay-5-WFK-9-carboxylic acid. Drug results are to be used only for medical purposes. ??Unconfirmed screening results must not be used for non-medical purposes. Urine Voided urine specimen / Unknown Non-Blood Collection / Unknown 06/23/2024 4:11 PM EST 06/23/2024 4:18 PM EST Quintin Ng MD LAB URINE ORDERABLES Final Res ult [employer] CLINICAL PATHOLOGY LABORATORY [address] [place] [address], * Phencyclidine (PCP) Screen, Urine (06/23/2024 4:11 PM EST) Pathologist [facility] Phencyclidine Screen, Urine NEGATIVE <25 ng/mL 06/24/2024 5:13 AM EST [facility] Comment: See Note 2 Urine Voided urine specimen / Unknown Non-Blood Collection / Unknown 06/23/2024 4:11 PM EST 06/23/2024 4:18 PM EST Narrative [facility] - 06/24/2024 5:13 AM EST [facility] Received Date:[id number] Quintin Ng MD LAB URINE ORDERABLES Final Res ult [facility] [address] [facility] [address], [place] [address], [place] [phone] [facility] [address] [facility] [address], [place] [address], [place] [phone] * (ABNORMAL) Cocaine Qualitative, Urine (06/23/2024 4:11 PM EST) Pathologist [facility] Cocaine Metabolite Screen, Urine Presumptive Positive(A) Negative 06/23/2024 5:19 PM EST [employer] CL[facility]ICAL PATHOLOGY LABORATORY Comment: Detection limit of 300 ng/mL of Benzoylecgonine. Drug results are to be used only for medical purposes. ??Unconfirmed screening results must not be used for non-medical purposes. Urine Voided urine specimen / Unknown Non-Blood Collection / Unknown 06/23/2024 4:11 PM EST 06/23/2024 4:18 PM EST Quintin Ng MD LAB URINE ORDERABLES Final Res ult Performing Organization Address [facility] Co de Phone Number [facility] [employer] CLINICAL PATHOLOGY LABORATORY [address] [place] [address], [place] * Benzodiazepine Qualitative Screen, Urine (06/23/2024 4:11 PM EST) Benzodiazepine Screen, Urine Negative Negative 06/23/2024 5:19 PM EST [facility] Comment: Detection limit of 200 ng/mL of Nordiazepam. Drug results are to be used only for medical purposes. ??Unconfirmed screening results must not be used for non-medical purposes. Urine Voided urine specimen / Unknown Non-Blood Collection / Unknown 06/23/2024 4:11 PM EST 06/23/2024 4:18 PM EST Quintin Ng MD LAB URINE ORDERABLES Final Res ult Performing Organization Address [facility] Co de Phone Number [facility] [employer] CLINICAL PATHOLOGY LABORATORY [address] [place] [phone], [place] * Amphetamine Qualitative, Urine (06/23/2024 4:11 PM EST) Amphetamine Screen, Urine Negative Negative 06/23/2024 5:19 PM EST [facility] Comment: Detection limit of 1000 ng/mL of d-Methamphetamine. Drug results are to be used only for medical purposes. ??Unconfirmed screening results must not be used for non-medical purposes. Urine Voided urine specimen / Unknown Non-Blood Collection / Unknown 06/23/2024 4:11 PM EST 06/23/2024 4:18 PM EST Quintin Ng MD LAB URINE ORDERABLES Final Res ult Performing Organization Address City/[facility] Co de Phone Number [facility] [address] [place] [address], * TSH Reflex Free T4 (06/23/2024 7:46 AM EST) TSH 0.337 0.280 - 3.890 uIU/mL 06/23/2024 2:56 PM EST [facility] PATHOLOGY LABORAT[facility] Blood Structure of peripheral vein / Unknown Venipuncture / Unknown 06/23/2024 7:46 AM EST 06/23/2024 7:51 AM EST Quintin Ng MD LAB BLOOD ORDERABLES Final Res ult Performing Organization Address [facility] Phone Number [facility] [address] [place] [address], * (ABNORMAL) Hemoglobin A1c (06/23/2024 7:46 AM EST) Hemoglobin A1C 7.9(H) <5.7 % of total Hgb 06/23/2024 12:45 PM EST [facility] Comment: For someone without known diabetes, a [...] (MG/DL) 180 mg/dL 06/23/2024 12:45 PM EST [facility] (MMOL/L) 10.0 mmol/L 06/23/2024 12:45 PM EST [facility] Blood Structure of peripheral vein / Unknown Venipuncture / Unknown 06/23/2024 7:46 AM EST 06/23/2024 7:46 AM EST Narrative [facility] - 06/23/2024 12:45 PM EST [facility] Received Date: Alex Brand MD LAB BLOOD ORDERABLES Fin al Result [facility] [address] [facility] [address], [place] [address], [place] [phone] [facility] [address] [facility] [address], [place] [address], [place] [phone] * Folate (06/23/2024 7:46 AM EST) Folate 15.0 4.8 - 24.2 ng/mL 06/23/2024 2:56 PM EST [employer] CLINICAL PATHOLOGY LABORATORY Blood Structure of peripheral vein / Unknown Venipuncture / Unknown 06/23/2024 7:46 AM EST 06/23/2024 7:51 AM EST Quintin Ng MD LAB BLOOD ORDERABLES Final Res ult Performing Organization Address [facility]/ZIP Co de Phone Number [employer] CLINICAL PATHOLOGY LABORATORY [address] [place] [phone], [place] * Vitamin B12 (06/23/2024 7:46 AM EST) Vitamin B12 584 232 - 1,245 pg/mL 06/23/2024 2:56 PM EST [employer] CLINICAL PATHOLOGY LABORATORY Blood Structure of peripheral vein / Unknown Venipuncture / Unknown 06/23/2024 7:46 AM EST 06/23/2024 7:51 AM EST Quintin Ng MD LAB BLOOD ORDERABLES Final Res ult Performing Organization Address City/[facility]/ZIP Co de Phone Number [employer] CLINICAL PATHOLOGY LABORATORY [address] [place] [address], [place] * Hepatitis C Antibody w/Reflex to HCV RNA, Quantitative PCR (06/23/2024 7:44 AM EST) Hepatitis C Antibody NON-REACT ZAINA NON-REACT ZAINA 06/23/2024 9:10 PM EST [facility] Comment: HCV antibody was non-reactive. There is no laboratory evidence of HCV infection. In most cases, no further action is required. However, if recent HCV exposure is suspected, a test for HCV RNA (test code 38869) is suggested. For additional information please refer to http://education.ThoughtBox/faq/UZP00x9 (This link is being provided for informational/ educational purposes only.) Blood Structure of peripheral vein / Unknown Venipuncture / Unknown 06/23/2024 7:44 AM EST 06/23/2024 7:45 AM EST Narrative [facility] - 06/23/2024 9:10 PM EST [facility] Received Date: Alex Brand MD LAB BLOOD ORDERABLES Fin al Result [address] [facility], [place] [address], [place] [phone] [address], [place] [address], [place] [phone] * Navarro Top, Urine (06/22/2024 7:38 PM EST) Pathologist [facility] Extra Tube Hold for add-ons. 06/23/2024 1:06 AM EST [employer] CLINICAL PATHOLOGY LABORATORY Comment:Auto resulted. Urine Urine specimen collection, clean catch / Unknown Non-Blood Collection / Unknown 06/22/2024 7:38 PM EST 06/22/2024 7:49 PM EST Alex Brand MD LAB URINE ORDERABLES Fin al Result [employer] CL[facility]ICAL PATHOLOGY LABORATORY [address] [place] [phone], [place] * (ABNORMAL) Urinalysis W/Reflex to Microscopic & Culture (06/22/2024 7:38 PM EST) Color, Urine Light Yellow Colorless, Light Yellow, Yellow, Dark Yellow 06/22/2024 8:17 PM EST [employer] [employer] [facility] LAB[facility] Clarity, Urine Clear Clear 06/22/2024 8:17 PM EST [employer] [facility] [employer] [facility] Specific [place], Urine 1.020 1.005 - 1.030 06/22/2024 8:17 PM EST [employer] [facility] [employer] [facility] pH, Urine 6.0 4.6 - 8.0 06/22/2024 8:17 PM EST [employer] [facility] [employer] [facility] Protein, Urine Negative Negative 06/22/2024 8:17 PM EST [employer] [facility] [employer] [facility] Glucose, Urine 3+(A) Negative 06/22/2024 8:17 PM EST [employer] [facility] [employer] [facility] Ketones, Urine 1+(A) Negative 06/22/2024 8:17 PM EST [employer] [employer] [facility] Bilirubin, Urine Negative Negative 06/22/2024 8:17 PM EST [employer] [facility] [employer] [facility] Blood, Urine 2+(A) Negative 06/22/2024 8:17 PM EST [employer] [employer] [facility] Nitrite, Urine Negative Negative 06/22/2024 8:17 PM EST [employer] [employer] [facility] Urobilinogen, Urine Normal Normal 06/22/2024 8:17 PM EST [employer] [employer] [facility] Leukocyte Esterase, Urine Negative Negative 06/22/2024 8:17 PM EST [facility] WBC, Urine <1 0 - 2 /HPF 06/22/2024 8:17 PM EST [employer] [employer] [facility] RBC, Urine <1 0 - 2 /HPF 06/22/2024 8:17 PM EST [employer] [employer] [facility] Hyaline Casts, Urine 0 0 - 2 /LPF 06/22/2024 8:17 PM EST [employer] CLINICAL PATHOLOGY LABORATORY Bacteria, Urine None None /HPF /HPF 06/22/2024 8:17 PM EST [facility]NM[facility] CL[facility] PATHOLOGY LABORATORY Urine Urine specimen collection, clean catch / Unknown Non-Blood Collection / Unknown 06/22/2024 7:38 PM EST 06/22/2024 7:49 PM EST Alex Brand MD LAB URINE ORDERABLES Fin al Result Performing Organization Address City/[facility]/ZIP Co de Phone Number [facility] [address] [place] [address], [place] * Blood Culture, Peripheral #2 (06/22/2024 6:42 PM EST) Only the most recent of2 resultswithin the time period is included. Culture No growth after 5 days 06/27/2024 10:22 PM EST [facility] Blood Structure of peripheral vein / Unknown Venipuncture / Unknown 06/22/2024 6:42 PM EST 06/22/2024 7:04 PM EST Narrative [facility] - 06/27/2024 10:22 PM EST [facility] Received Date: MICRO NUMBER: [id number] SPECIMEN QUALITY: Suboptimal SOURCE: BLOOD VENOUS, PERIPHERAL STATUS: FINAL COMMENT: Aerobic and anaerobic bottle received. Inspection of blood culture bottles indicates that an inadequate volume of blood may have been collected for the detection of sepsis. Alex Brand MD LAB MICROBIOLOGY - GENER AL ORDERABLES Final Result Performing Organization Address City/[facility]/ZIP Co de Phone Number [facility] [address] [facility] [address], [place] [address], [facility] [address] [facility] [address], [place] [address], * X-Ray Hand Left 3+ Views (06/22/2024 [...] obtain the completed interpretation. ? Workstation ID: [id number] Narrative 06/22/2024 2:06 PM EST COMPARISON: ??None. ?? FINDINGS AND Resulting Agency Comment [id number] Procedure Note Antonia Wayne MD - 06/22/2024 COMPARISON: None. FINDINGS AND IMPRESSION: No acute fracture or dislocation. Alignment and joint spaces aremaintained. Soft tissues are within normal limits. If this radiology report contains a blank impression section, it is anincomplete radiology report. Please contact the interpreting radiologistor applicable radiology division as soon as possible to obtain thecompleted interpretation. Workstation ID: [id number] us Sofía Hardy MD IMG XR PROCEDURES Final Res ult * ECG 12 lead (06/22/2024 1:31 PM EST) Only the most recent of2 resultswithin the time period is included. Ventricular Rate EKG 86 BPM MUSE EKG Atrial Rate 86 BPM MUSE EKG RI Interval 132 ms MUSE EKG QRS Interval 90 ms MUSE EKG QT Interval 362 ms MUSE EKG QTC Interval 433 ms MUSE EKG P [place] 53 degrees MUSE EKG R [place] 30 degrees MUSE EKG T Wave [place] 33 degrees MUSE EKG 06/22/2024 1:31 PM [...] - 1.9 mmol/L 06/22/2024 11:47 AM EST [employer] CL[facility]ICAL PATHOLOGY LABORATORY Blood Structure of peripheral vein / Unknown Venipuncture / Unknown 06/22/2024 10:59 AM EST 06/22/2024 11:17 AM EST Sofía Hardy MD LAB BLOOD ORDERABLES Final Result Performing Organization Address [facility] Co de Phone Number [facility] LABORATORY [address] [place] [address], [place] * CT C-Spine WO Contrast (06/22/2024 [...] obtain the completed interpretation. ? Workstation ID: [id number] Up-to-date CT equipment and radiation dose reduction techniques were employed. CTDIvol: 26.2 - 70.4 mGy. DLP: 2128 mGy-cm. ??The following accession numbers are related to this dose report [id number]: [id number] Narrative 06/22/2024 9:50 AM EST COMPARISON: No [...] tissues are unremarkable. ?? Resulting Agency Comment [id number] Procedure Note Paulo Osuna, DO - 06/22/2024 [...] possible to obtain thecompleted interpretation. Workstation ID: [id number] Up-to-date CT equipment and radiation dose reduction techniques wereemployed. CTDIvol: 26.2 - 70.4 mGy. DLP: 2128 mGy-cm. The followingaccession numbers are related to this dose report [id number]: [id number] Sofía Hardy MD IMG CT PROCEDURES Final [...] obtain the completed interpretation. ? Workstation ID: [id number] Up-to-date CT equipment and radiation dose reduction techniques were employed. CTDIvol: 26.2 - 70.4 mGy. DLP: 2128 mGy-cm. ??The following accession numbers are related to this dose report [id number]: [id number] Narrative 06/22/2024 9:48 AM EST TECHNIQUE: 3D [...] cells are well aerated. Resulting Agency Comment [id number] Procedure Note Paulo Osuna, - 06/22/2024 TECHNIQUE: [...] possible to obtain thecompleted interpretation. Workstation ID: [id number] Up-to-date CT equipment and radiation dose reduction techniques wereemployed. CTDIvol: 26.2 - 70.4 mGy. DLP: 2128 mGy-cm. The followingaccession numbers are related to this dose report [id number]: [id number] us Sofía Hardy MD IM CT PROCEDURES Final Res ult * COVID-19, Flu A/B & RSV RNA PCR, Symptomatic (06/22/2024 8:10 AM EST) PCR, SARS CoV-2 RNA Not Detected Not Detected CEP[employer]oxXPERT 06/22/2024 8:57 AM EST [employer] [facility] Comment:A Not Detected (Nega [...] A RNA PCR Not Detected Not Detected [employer] Digital AgencyID GENEXPERT 06/22/2024 8:57 AM EST [employer] [facility] Comment:Negative results do not preclude infection and should not be used as the sole basis for diagnosis, treatment or other patient management decisions. Negative results must be combined with clinical observations, patient history, and/or epidemiological information. Flu B RNA PCR Not Detected Not Detected [employer] GENEXPERT 06/22/2024 8:57 AM EST [employer] [facility] Comment:Negative results do not preclude infection and should not be used as the sole basis for diagnosis, treatment or other patient management decisions. Negative results must be combined with clinical observations, patient history, and/or epidemiological information. RSV RNA PCR Not Detected Not Detected [employer] GENEXPERT 06/22/2024 8:57 AM EST [employer] [facility] Comment:Negative results do not preclude infection and should not be used as the sole basis for diagnosis, treatment or other patient management decisions. Negative results must be combined with clinical observations, patient history, and/or epidemiological information. Swab (Nares) Non-Blood Collection / Unknown 06/22/2024 8:10 AM EST 06/22/2024 8:10 AM EST [facility] [employer] [facility] - 06/22/2024 8:57 AM EST This test was developed, validated and its performance characteristics determined by [facility]. This test has not been cleared or approved by the U.S. Food and Drug Administration (FDA). FDA Policy for Diagnostic Tests for Coronavirus Disease-2019 during the Public Health Emergency issued August 04, 2019, is followed. us Sofía Hardy MD LAB BODY FLUIDS AND STOOLS ORDERABLES Final Result Performing Organization Address [facility]/ZIP Co de Phone Number [facility] [address] [place] [address], [place] * (ABNORMAL) Lactic Acid (w/Repeat if >2) - Sepsis (06/22/2024 8:08 AM EST) Lactic Acid 2.7(H) 0.5 - 1.9 mmol/L 06/22/2024 8:41 AM EST [employer] [facility] Blood Structure of peripheral vein / Unknown Venipuncture / Unknown 06/22/2024 8:08 AM EST 06/22/2024 8:13 AM EST Sofía Hardy MD LAB BLOOD ORDERABLES Final Result Performing Organization Address [facility] Co de Phone Number [facility] [address] [place] [address], [place] * Lipase (06/22/2024 8:08 AM EST) Lipase 27 13 - 60 U/L 06/22/2024 8:48 AM EST [employer] [facility] Blood Structure of peripheral vein / Unknown Venipuncture / Unknown 06/22/2024 8:08 AM EST 06/22/2024 8:12 AM EST us Sofía Hardy MD LAB BLOOD ORDERABLES Final Result Performing Organization Address City/[facility]/ZIP Co de Phone Number [facility] [address] [place] [address], [place] * Ethanol (06/22/2024 8:08 AM EST) Ethanol <10 <10 mg/dL 06/22/2024 8:45 AM EST [employer] [facility] Blood Structure of peripheral vein / Unknown Venipuncture / Unknown 06/22/2024 8:08 AM EST 06/22/2024 8:12 AM EST us Sofía Hardy MD LAB BLOOD ORDERABLES Final Result [facility] [address] [place] [address], [place] * (ABNORMAL) CMP - Comprehensive Metabolic Panel (06/22/2024 8:08 AM EST) NA 138 135 - 145 mmol/L 06/22/2024 8:48 AM EST Jimmy Fairly - [employer] [facility] K 4.7 3.5 - 5.3 mmol/L 06/22/2024 8:48 AM EST [employer] [facility] Cl 97(L) 98 - 107 mmol/L 06/22/2024 8:48 AM EST [employer] [facility] CO2 16(L) 22 - 32 mmol/L 06/22/2024 8:48 AM EST Jimmy Fairly - [employer] [facility] Anion Gap 25(H) 5 - 15 06/22/2024 8:48 AM EST [employer] [facility] Glucose 235(H) 65 - 99 mg/dL 06/22/2024 8:48 AM EST [employer] [facility] Creatinine 1.30 0.60 - 1.30 mg/dL 06/22/2024 8:48 AM EST [employer] [facility] Calcium 9.3 8.6 - 10.5 mg/dL 06/22/2024 8:48 AM EST [employer] [facility] Total Protein 8.1(H) 6.0 - 8.0 g/dL 06/22/2024 8:48 AM EST [employer] [facility] Albumin 4.5 3.5 - 5.2 g/dL 06/22/2024 8:48 AM EST [employer] [facility] Bilirubin, Total 0.5 0.2 - 1.2 mg/dL 06/22/2024 8:48 AM EST [facility] [employer] [facility] Alkaline Phosphatase 60 35 - 129 U/L 06/22/2024 8:48 AM EST [facility] [employer] [facility] AST 314(H) 10 - 40 U/L 06/22/2024 8:48 AM EST [facility] [employer] [facility] ALT 142(H) 10 - 40 U/L 06/22/2024 8:48 AM EST [facility] [employer] [facility] BUN 50(H) 7 - 23 mg/dL 06/22/2024 8:48 AM EST [facility] [employer] [facility] eGFR 72 >=60 mL/min/1. 73m2 06/22/2024 8:48 AM EST [facility] [employer] [facility] Comment:The estimated glomer [...] - 4.2 g/dL 06/22/2024 8:48 AM EST [facility] [employer] [facility] A/G Ratio 1.3(L) 1.5 - 3.0 06/22/2024 8:48 AM EST [facility] [employer] [facility] Blood Structure of peripheral vein / Unknown Venipuncture / Unknown 06/22/2024 8:08 AM EST 06/22/2024 8:12 AM EST us Sofía Hardy MD LAB BLOOD ORDERABLES Final Result [facility] [employer] [facility] [address] [place] [address], [place] * XR Chest Portable 1 View [...] obtain the completed interpretation. ? Workstation ID: [id number] Narrative 06/22/2024 8:14 AM EST COMPARISON: None. FINDINGS: Lines/Tubes/Devices: None. Lungs: No consolidation or pulmonary edema. Pleura: No pleural effusion. No pneumothorax. Heart/Mediastinum: The cardiac and mediastinal contours are normal. Bones/Soft tissues: No acute osseous abnormality. Resulting Agency Comment [id number] Procedure Note Paulo Osuna DO - 06/22/2024 [...] possible to obtain thecompleted interpretation. 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
--- NOTE | 2024-07-21 13:14 | PHA.MEDREC ---
Addendum entered by Steven Lackey RPh 07/22/24 12:58: Reviewed by [facility] Original Note: Pharmacy Consult ? Medication Reconciliation Pharmacy has completed the medication reconciliation. Reviewed med rec done by nursing. [facility] reports [facility]ine was never picked up from pharmacy, leaving off of med list. Nurse Asha asked the patient to confirm Lantus units. He confirmed it was 28 units and then said I think so . Left 28 units on med rec (from rx/claims).
[2024-07-21] MEDS: HaloperidoL 5 MG TABLET 10 MG PO ×2 (13:49→21:08)
[2024-07-21] MEDS: cloNIDine HCL 0.1 MG TABLET PO ×2 (13:49→21:08)
[2024-07-21] MEDS: Insulin Glargine,Hum.rec.anlog 100 UNIT/ML 10 ML VIAL 28 UNIT SUBCUT ×2 (13:49→21:11)
[2024-07-21 14:28] VITALS: BP 100/63; PULSE 89; RESP 18; TEMP 37.1; O2SAT 98
--- NOTE | 2024-07-21 14:39 | PC.NURSE ---
report given to OLI Moe in the pod at this time.
--- NOTE | 2024-07-21 17:55 | PC.NURSE ---
waiting for pharmacy to bring up the glyburide
[2024-07-21 18:27] VITALS: BP 116/74; PULSE 75; RESP 18; TEMP 36.9; O2SAT 99
[2024-07-21] MEDS: glyBURIDE 5 MG TABLET PO (18:31)
--- NOTE | 2024-07-21 19:03 | PC.NURSE ---
Care team consult not ordered. TW placed order. Care team at bedside attempting to speak with pt and encourage he provide urine. PT not engaging and refusing to provide urine. TW informed pt he would need to speak with care team to figure out proper disposition. PT agreeable but when Care team re entered, pt refused to engage again.
[2024-07-21 20:24] LABS: Amphetamine Screen Urine Not Detected (Not Detect); Barbiturates, Urine Not Detected (Not Detect); Benzodiazepines Screen Urine Not Detected (Not Detect); Buprenorphine Scr Not Detected (Not Detect); Cannabinoid Screen Urine Not Detected (Not Detect); Cocaine Screen Urine POSITIVE (Not Detect); Fentanyl, urine Not Detected (Not Detect); Methadone Screen, Urine Not Detected (Not Detect); Opiate Screen Urine Not Detected (Not Detect); Oxycodone Screen Urine Not Detected (Not Detect); Phencyclidine Screen Urine Not Detected (Not Detect)
[2024-07-21 20:31] LABS: Appearance Urine Clear; Color Urine Yellow; Glucose Urine UA >=1000 mg/dL (Negative); Leukocyte Esterase Urine Negative (Negative); Nitrite Urine Negative (Negative); Specific Gravity - Urine >= 1.030 (1.005-1.025); UMIC TRIGGER UACC YES; Urine Blood Negative (Negative); Urine Ketones Negative (Negative); Urine Protein Negative (Neg-Trace)
[2024-07-21 20:38] LABS: Bacteria Urine None Seen (None Seen); Hyaline Casts Urine 0-2 /LPF (0-2); RBC Urine 0-2 /HPF (0-2); Squamous Epithelial Cell Urine 0-2 /HPF (0-2); WBC Urine 0-5 /HPF (0-5)
--- NOTE | 2024-07-21 20:57 | PC.NURSE ---
skin assessment- pt feet appear to be unhealed from most recent medical admission. pt report he has not had wound care since discharging. Provider at bedside to further assessment. Plan of care ongoing
[2024-07-21] MEDS: QUEtiapine Fumarate 200 MG TABLET PO (21:07)
[2024-07-21 21:08] VITALS: BP 110/67
[2024-07-21] MEDS: Benztropine Mesylate 1 MG TABLET PO (21:08)
[2024-07-21] MEDS: Bacitracin Oint 0.9 GM PACKET 1 APPL TOPICAL (21:08)
[2024-07-21] MEDS: metFORMIN HCl 1,000 MG TABLET 1000 MG PO (21:08)
[2024-07-21 21:13] VITALS: BP 110/67; PULSE 68; RESP 16; TEMP 36.6; O2SAT 98
[2024-07-21 21:20] LABS: Glucose, Whole Blood 191 mg/dL (60-115)
--- NOTE | 2024-07-21 22:34 | PC.NURSE ---
discussed plan of care with Dr. Kline- pt most recent MRI was negative for osteomyelitis. Pt received 7 day course of IV abx, and 7 days of po. PT white count is wnl therefore Plan is for daily dressing changes.
--- NOTE | 2024-07-21 23:03 | PC.NURSE ---
patient appears to remain at rest prespiraiotns are even and unabored patien t appears in no distress
[2024-07-22 06:22] VITALS: BP 96/61; PULSE 70; RESP 17; TEMP 36.9; O2SAT 100
[2024-07-22] MEDS: glyBURIDE 5 MG TABLET PO ×2 (11:22→17:32)
[2024-07-22] MEDS: metFORMIN HCl 1,000 MG TABLET 1000 MG PO ×2 (11:22→21:38)
[2024-07-22] MEDS: cloNIDine HCL 0.1 MG TABLET PO ×2 (11:22→21:36)
[2024-07-22] MEDS: HaloperidoL 5 MG TABLET 10 MG PO ×2 (11:22→21:36)
--- NOTE | 2024-07-22 11:35 | PC.NURSE ---
delay in medication administration d/t pt sleeping. pt now awake - medication administered per provider order. pt offers no complaints. denies pain. updated CIWA = 2. pt remains on RA w/o difficulty - no sob/wob noted. respirations even/unlabored. plan of care ongoing. call bauer placed within reach.
--- NOTE | 2024-07-22 12:30 | PC.NURSE ---
report given to OLI Espino on M5 at this time.
--- NOTE | 2024-07-22 14:19 | PC.NURSE ---
pt refused flu shot or NRT
--- NOTE | 2024-07-22 14:59 | HO.PSYADMNOT ---
HPI Date of Service: 07/22/24 Chief Complaint: depressed/SI Sources of Information: patient interviewed, chart reviewed and crisis/core team assessment reviewed HPI Subjective Notes: Conditional Voluntary and 3 Day Narrative: Patient is a 39-year-old male with history of schizophrenia, PTSD, opioid use disorder and cocaine use disorder who was recently discharged from on 07/16 who self presents for depression, SI in the face relapse. Patient is somewhat resistant to interview, lying in bed and giving few answers. He says on discharge he went to his sister's however she kicked him out though he does not know why. Patient said after he left her house he relapsed with cocaine/opioid; did continue taking his medications however. Patient reports he has been homeless, overwhelmed and in despair and started feeling suicidal (though he made no attempt) so he self presented. He denies any current SI; denies any AVH. Past Psychiatric History: -Hx of multiple inpatient psychiatric admissions. Patient unable to specify dates. Patient was section 35 in 12/2023. hx of decompensation in the context of non-adherence. outpt: none current Patient reports history of 5-6 suicide attempts but does not specify details. Medical Evaluation Reviewed: Yes [facility] Medical History Homeless Sleep apnea Medical clearance for psychiatric admission Routine history and physical examination of adult Cardiomyopathy Cocaine abuse Cannabis abuse Diabetes Schizophrenia, chronic condition Surgical History No pertinent past surgical history Family History: -Bio mom: schizophrenia -Bio dad: alcohol use disorder. schizophrenia. Social History: -Born and raised in [place], [place], has bio parents and sister. homeless. Highest level of education completed was 9th grade. Disability. Substance History: Ongoing cocaine/opioid use Trauma History: Yes Diagnostics Vital Signs (24Hr): Vital Signs - 24 hr 07/21/24 18:27 07/21/24 21:08 07/21/24 21:13 Temperature 98.4 F 98 F Pulse Rate 75 68 Respiratory Rate 18 16 Blood Pressure 116/74 110/67 110/67 Pulse Oximetry 99 98 Oxygen Delivery Method Room Air Room Air 07/22/24 06:22 Temperature 98.4 F Pulse Rate 70 Respiratory Rate 17 Blood Pressure 96/61 Pulse Oximetry 100 Oxygen Delivery Method Room Air BMI result Body Mass Index 34.9 Labs 07/21/24 11:18 07/21/24 11:18 Labs: Laboratory Results - last 48 hr 07/21/24 07/21/24 07/21/24 11:18 11:18 11:18 WBC 6.6 RBC 4.15 L Hgb 10.6 L Hct 32.7 L MCV 78.8 L MCH 25.5 L MCHC 32.4 RDW 15.8 Plt Count 220 D MPV 9.9 Immature Gran % (Auto) 0.2 Neut % (Auto) 63.2 Lymph % (Auto) 27.3 Hidalgo % (Auto) 8.0 Eos % (Auto) 0.8 Baso % (Auto) 0.5 Lymph # (Auto) 1.8 [place]go # (Auto) 0.5 Eos # (Auto) 0.1 Baso # (Auto) 0.0 Abs Immat Gran (auto) 0.01 Absolute Neuts (auto) 4.2 Absolute Nucleated RBC 0.000 Nucleated RBC % (auto) 0.0 Sodium 138 Potassium 4.0 Chloride 103 Carbon Dioxide 26 Anion Gap 13 BUN 24 H Creatinine 1.28 Estim Creat Clear Calc 99.2 Estimated GFR > 60 POC Glucose Random Glucose 346 H Calcium 8.7 Magnesium 1.8 Total Bilirubin 0.2 0.1 Direct Bilirubin < 0.2 AST 16 15 ALT 25 Alkaline Phosphatase Total Protein Albumin Urine Color Urine Appearance Urine pH Ur Specific Senath Urine Protein Urine Glucose (UA) Urine Ketones Urine Blood Urine Nitrite Ur Leukocyte Esterase Urine RBC Urine WBC Ur Squamous Epith Cells Urine Bacteria Hyaline Casts Salicylates Urine Opiates Screen Ur Buprenorphine Scrn Ur Oxycodone Screen Urine Methadone Screen Urine Fentanyl Screen Acetaminophen Ur Barbiturates Screen Ur Phencyclidine Scrn Ur Amphetamines Screen U Benzodiazepines Scrn Urine Cocaine Screen U Marijuana (THC) Screen Ethyl Alcohol 07/21/24 07/21/24 07/21/24 11:18 11:18 11:18 WBC RBC Hgb Hct MCV MCH MCHC RDW Plt Count MPV Immature Gran % (Auto) Neut % (Auto) Lymph % (Auto) H[place]go % (Auto) Eos % (Auto) Baso % (Auto) Lymph # (Auto) H[place]go # (Auto) Eos # (Auto) Baso # (Auto) Abs Immat Gran (auto) Absolute Neuts (auto) Absolute Nucleated RBC Nucleated RBC % (auto) Sodium Potassium Chloride Carbon Dioxide Anion Gap BUN Creatinine Estim Creat Clear Calc Estimated GFR POC Glucose Random Glucose Calcium Magnesium Total Bilirubin Direct Bilirubin AST ALT 17 Alkaline Phosphatase 61 61 Total Protein 7.6 7.5 Albumin 3.8 Urine Color Urine Appearance Urine pH Ur Specific Senath Urine Protein Urine Glucose (UA) Urine Ketones Urine Blood Urine Nitrite Ur Leukocyte Esterase Urine RBC Urine WBC Ur Squamous Epith Cells Urine Bacteria Hyaline Casts Salicylates Urine Opiates Screen Ur Buprenorphine Scrn Ur Oxycodone Screen Urine Methadone Screen Urine Fentanyl Screen Acetaminophen Ur Barbiturates Screen Ur Phencyclidine Scrn Ur Amphetamines Screen U Benzodiazepines Scrn Urine Cocaine Screen U Marijuana (THC) Screen Ethyl Alcohol 07/21/24 07/21/24 07/21/24 11:18 20:03 21:17 WBC RBC Hgb Hct MCV MCH MCHC RDW Plt Count MPV Immature Gran % (Auto) Neut % (Auto) Lymph % (Auto) [place]go % (Auto) Eos % (Auto) Baso % (Auto) Lymph # (Auto) [place]go # (Auto) Eos # (Auto) Baso # (Auto) Abs Immat Gran (auto) Absolute Neuts (auto) Absolute Nucleated RBC Nucleated RBC % (auto) Sodium Potassium Chloride Carbon Dioxide Anion Gap BUN Creatinine Estim Creat Clear Calc Estimated GFR POC Glucose 191 H Random Glucose Calcium Magnesium Total Bilirubin Direct Bilirubin AST ALT Alkaline Phosphatase Total Protein Albumin 3.8 Urine Color Yellow Urine Appearance Clear Urine pH 6.0 Ur Specific Senath >= 1.030 H Urine Protein Negative Urine Glucose (UA) >=1000 H Urine Ketones Negative Urine Blood Negative Urine Nitrite Negative Ur Leukocyte Esterase Negative Urine RBC 0-2 Urine WBC 0-5 Ur Squamous Epith Cells 0-2 Urine Bacteria None Seen Hyaline Casts 0-2 Salicylates < 5.0 L Urine Opiates Screen Not Detected Ur Buprenorphine Scrn Not Detected Ur Oxycodone Screen Not Detected Urine Methadone Screen Not Detected Urine Fentanyl Screen Not Detected Acetaminophen < 3 Ur Barbiturates Screen Not Detected Ur Phencyclidine Scrn Not Detected Ur Amphetamines Screen Not Detected U Benzodiazepines Scrn Not Detected Urine Cocaine Screen POSITIVE H U Marijuana (THC) Screen Not Detected Ethyl Alcohol < 10 Meds/Allergies Allergies Allergies Allergy/AdvReac Type Severity Reaction Status Date / Time codeine AdvReac Unknown Unknown Verified 07/21/24 10:51 Mental Status Exam Mental Status Exam Narrative: Pt is alert and oriented; behavior is superficially cooperative, calm; patient is not in distress; dressed in hospital attire, disheveled; mood is described as ok and affect blunted, downcast; eye contact avoidant; Speech is sparse, soft; psychomotor retardation present; thought process is goal directed; thought content is on treatment; otherwise pertinent to relevant topics; denies delusional content, paranoid ideations; denies any SI/HI. Denies AVH; Patients insight and judgment are impaired Assessment & Plan Assessment & Plan (1) Schizophrenia, chronic condition: Status: Acute Code(s): F20.9 - Schizophrenia, unspecified (2) PTSD (post-traumatic stress disorder): Status: Acute Code(s): F43.10 - Post-traumatic stress disorder, unspecified (3) Cocaine abuse: Status: Acute Code(s): F14.10 - Cocaine abuse, uncomplicated (4) Opioid use disorder: Status: Acute Code(s): F11.90 - Opioid use, unspecified, uncomplicated (5) Diabetes: Status: Acute Code(s): E11.9 - Type 2 diabetes mellitus without complications (6) Homeless: Status: Acute Code(s): Z59.00 - Homelessness unspecified Plan Patient is a 39-year-old male with history of schizophrenia, PTSD, opioid use disorder and cocaine use disorder who was recently discharged from on 07/16 who self presents for depression, SI in the face relapse. Patient is somewhat resistant to interview, lying in bed and giving few answers. He says on discharge he went to his sister's however she kicked him out though he does not know why. Patient said after he left her house he relapsed with cocaine/opioid; did continue taking his medications however. Patient reports he has been homeless, overwhelmed and in despair and started feeling suicidal (though he made no attempt) so he self presented. He denies any current SI; denies any AVH. Plan: CV Q 15 minute checks Restart/continue home meds Patient educated on: diagnosis, medication risk/benefits and substance abuse Informed Consent: understands Reason for continued inpatient stay Substantial Risk for: rapid decompensation Statement Statement: I have reviewed the history and physical and performed a pertinent examination on my patient. No changes have occurred unless specified. If the History and Physical was not performed prior to admission, the Hospitalist's service will be consulted for completing the admission physical. Time Spent With Patient Time: Total time managing care of this patient today ____ minutes.
--- NOTE | 2024-07-22 15:14 | PC.ADMIT ---
Luan is a 39yo male, unhoused, insulin dependent diabetic (POC QID). He arrived to the unit at 1306 from [facility] Pt reports he was recently discharged from , went to a ?program? and left because he felt people were after him. When asked by whom and for what reason these people were after him, he could not elaborate and shrugged. Pt self admitted to [facility] w/ increased depression and thoughts of SI. He denies relapse on substances prior to current admission however, tox screen is positive for cocaine. Skin check reveals wound to right anterior great toe (previously dx as duarte bite). Orders entered for dressing changes daily w/ bacitracin, non-adherent dressing and Kerlix. Pt has a signed and accepted CV, utilizing a walker and placed on 5min checks per policy. Pt is not a smoker and declined the flu shot.
[2024-07-22 17:07] LABS: Glucose, Whole Blood 142 mg/dL (60-115)
[2024-07-22 20:00] VITALS: BP 115/72; PULSE 100; RESP 16; TEMP 36.3; O2SAT 99
[2024-07-22 20:43] LABS: Glucose, Whole Blood 161 mg/dL (60-115)
[2024-07-22] MEDS: Insulin Glargine,Hum.rec.anlog 100 UNIT/ML 10 ML VIAL 28 UNIT SUBCUT (21:30)
[2024-07-22 21:36] VITALS: BP 130/80
[2024-07-22] MEDS: QUEtiapine Fumarate 200 MG TABLET PO (21:38)
[2024-07-22] MEDS: Benztropine Mesylate 1 MG TABLET PO (21:39)
[2024-07-23 07:55] VITALS: BP 117/76; PULSE 71; RESP 16; TEMP 36.6; O2SAT 98
[2024-07-23 07:59] LABS: Glucose, Whole Blood 138 mg/dL (60-115)
[2024-07-23] MEDS: HaloperidoL 5 MG TABLET 10 MG PO ×2 (09:53→20:37)
[2024-07-23] MEDS: metFORMIN HCl 1,000 MG TABLET 1000 MG PO ×2 (09:53→20:37)
[2024-07-23 09:54] VITALS: BP 117/76
[2024-07-23] MEDS: cloNIDine HCL 0.1 MG TABLET PO ×2 (09:54→20:37)
[2024-07-23] MEDS: OLANZapine 5 MG TABLET PO (09:54)
[2024-07-23] MEDS: glyBURIDE 5 MG TABLET PO ×2 (09:54→16:42)
[2024-07-23] MEDS: Folic Acid 1 MG TABLET PO (09:54)
[2024-07-23] MEDS: Thiamine HCL 100 MG TABLET PO (09:54)
--- NOTE | 2024-07-23 09:57 | P.PNPSI_ITS ---
Subjective Subjective Date of Service: 07/23/24 Reason For Visit: depressed/SI Interim History: met with patient; discussed with team Lying in bed, isolating and keeping to himself. Patient says he is okay but feeling depressed and does not want to talk and politely declines interview. Denies any AVH or SI. Mental Status Exam Mental Status Exam Narrative: Pt is alert and oriented; behavior is superficially cooperative, minimally engaged; calm; patient is not in distress; dressed in hospital attire, disheveled; mood is described as ok and affect blunted, downcast; eye contact avoidant; Speech is sparse, soft; psychomotor retardation present; thought process is goal directed; thought content is on treatment; otherwise pertinent to relevant topics; denies delusional content, paranoid ideations; denies any SI/HI. Denies AVH; Patients insight and judgment are impaired Diagnostics Vital Signs (24Hr): Vital Signs - 24 hr 07/22/24 20:00 07/22/24 21:36 07/23/24 07:55 Temperature 97.3 F 98 F Pulse Rate 100 71 Respiratory Rate 16 16 Blood Pressure 115/72 130/80 117/76 Pulse Oximetry 99 98 Oxygen Delivery Method Room Air Room Air 07/23/24 09:54 Temperature Pulse Rate Respiratory Rate Blood Pressure 117/76 Pulse Oximetry Oxygen Delivery Method BMI result Body Mass Index 34.9 Labs 07/21/24 11:18 07/21/24 11:18 Labs: Laboratory Results - last 48 hr 07/21/24 07/21/24 07/21/24 11:18 11:18 11:18 WBC 6.6 RBC 4.15 L Hgb 10.6 L Hct 32.7 L MCV 78.8 L MCH 25.5 L MCHC 32.4 RDW 15.8 Plt Count 220 D MPV 9.9 Immature Gran % (Auto) 0.2 Neut % (Auto) 63.2 Lymph % (Auto) 27.3 [place] % (Auto) 8.0 Eos % (Auto) 0.8 Baso % (Auto) 0.5 Lymph # (Auto) 1.8 [place] # (Auto) 0.5 Eos # (Auto) 0.1 Baso # (Auto) 0.0 Abs Immat Gran (auto) 0.01 Absolute Neuts (auto) 4.2 Absolute Nucleated RBC 0.000 Nucleated RBC % (auto) 0.0 Sodium 138 Potassium 4.0 Chloride 103 Carbon Dioxide 26 Anion Gap 13 BUN 24 H Creatinine 1.28 Estim Creat Clear Calc 99.2 Estimated GFR > 60 POC Glucose Random Glucose 346 H Calcium 8.7 Magnesium 1.8 Total Bilirubin 0.2 0.1 Direct Bilirubin < 0.2 AST 16 15 ALT 25 Alkaline Phosphatase Total Protein Albumin Urine Color Urine Appearance Urine pH Ur Specific [place] Urine Protein Urine Glucose (UA) Urine Ketones Urine Blood Urine Nitrite Ur Leukocyte Esterase Urine RBC Urine WBC Ur Squamous Epith Cells Urine Bacteria Hyaline Casts Salicylates Urine Opiates Screen Ur Buprenorphine Scrn Ur Oxycodone Screen Urine Methadone Screen Urine Fentanyl Screen Acetaminophen Ur Barbiturates Screen Ur Phencyclidine Scrn Ur Amphetamines Screen U Benzodiazepines Scrn Urine Cocaine Screen U Marijuana (THC) Screen Ethyl Alcohol 07/21/24 07/21/24 07/21/24 11:18 11:18 11:18 WBC RBC Hgb Hct MCV MCH MCHC RDW Plt Count MPV Immature Gran % (Auto) Neut % (Auto) Lymph % (Auto) [place] % (Auto) Eos % (Auto) Baso % (Auto) Lymph # (Auto) [place] # (Auto) Eos # (Auto) Baso # (Auto) Abs Immat Gran (auto) Absolute Neuts (auto) Absolute Nucleated RBC Nucleated RBC % (auto) Sodium Potassium Chloride Carbon Dioxide Anion Gap BUN Creatinine Estim Creat Clear Calc Estimated GFR POC Glucose Random Glucose Calcium Magnesium Total Bilirubin Direct Bilirubin AST ALT 17 Alkaline Phosphatase 61 61 Total Protein 7.6 7.5 Albumin 3.8 Urine Color Urine Appearance Urine pH Ur Specific [place] Urine Protein Urine Glucose (UA) Urine Ketones Urine Blood Urine Nitrite Ur Leukocyte Esterase Urine RBC Urine WBC Ur Squamous Epith Cells Urine Bacteria Hyaline Casts Salicylates Urine Opiates Screen Ur Buprenorphine Scrn Ur Oxycodone Screen Urine Methadone Screen Urine Fentanyl Screen Acetaminophen Ur Barbiturates Screen Ur Phencyclidine Scrn Ur Amphetamines Screen U Benzodiazepines Scrn Urine Cocaine Screen U Marijuana (THC) Screen Ethyl Alcohol 07/21/24 07/21/24 07/21/24 11:18 20:03 21:17 WBC RBC Hgb Hct MCV MCH MCHC RDW Plt Count MPV Immature Gran % (Auto) Neut % (Auto) Lymph % (Auto) [place] % (Auto) Eos % (Auto) Baso % (Auto) Lymph # (Auto) [place] # (Auto) Eos # (Auto) Baso # (Auto) Abs Immat Gran (auto) Absolute Neuts (auto) Absolute Nucleated RBC Nucleated RBC % (auto) Sodium Potassium Chloride Carbon Dioxide Anion Gap BUN Creatinine Estim Creat Clear Calc Estimated GFR POC Glucose 191 H Random Glucose Calcium Magnesium Total Bilirubin Direct Bilirubin AST ALT Alkaline Phosphatase Total Protein Albumin 3.8 Urine Color Yellow Urine Appearance Clear Urine pH 6.0 Ur Specific [place] >= 1.030 H Urine Protein Negative Urine Glucose (UA) >=1000 H Urine Ketones Negative Urine Blood Negative Urine Nitrite Negative Ur Leukocyte Esterase Negative Urine RBC 0-2 Urine WBC 0-5 Ur Squamous Epith Cells 0-2 Urine Bacteria None Seen Hyaline Casts 0-2 Salicylates < 5.0 L Urine Opiates Screen Not Detected Ur Buprenorphine Scrn Not Detected Ur Oxycodone Screen Not Detected Urine Methadone Screen Not Detected Urine Fentanyl Screen Not Detected Acetaminophen < 3 Ur Barbiturates Screen Not Detected Ur Phencyclidine Scrn Not Detected Ur Amphetamines Screen Not Detected U Benzodiazepines Scrn Not Detected Urine Cocaine Screen POSITIVE H U Marijuana (THC) Screen Not Detected Ethyl Alcohol < 10 07/22/24 07/22/24 07/23/24 17:01 20:39 07:51 WBC RBC Hgb Hct MCV MCH MCHC RDW Plt Count MPV Immature Gran % (Auto) Neut % (Auto) Lymph % (Auto) [place] % (Auto) Eos % (Auto) Baso % (Auto) Lymph # (Auto) [place] # (Auto) Eos # (Auto) Baso # (Auto) Abs Immat Gran (auto) Absolute Neuts (auto) Absolute Nucleated RBC Nucleated RBC % (auto) Sodium Potassium Chloride Carbon Dioxide Anion Gap BUN Creatinine Estim Creat Clear Calc Estimated GFR POC Glucose 142 H 161 H 138 H Random Glucose Calcium Magnesium Total Bilirubin Direct Bilirubin AST ALT Alkaline Phosphatase Total Protein Albumin Urine Color Urine Appearance Urine pH Ur Specific [place] Urine Protein Urine Glucose (UA) Urine Ketones Urine Blood Urine Nitrite Ur Leukocyte Esterase Urine RBC Urine WBC Ur Squamous Epith Cells Urine Bacteria Hyaline Casts Salicylates Urine Opiates Screen Ur Buprenorphine Scrn Ur Oxycodone Screen Urine Methadone Screen Urine Fentanyl Screen Acetaminophen Ur Barbiturates Screen Ur Phencyclidine Scrn Ur Amphetamines Screen U Benzodiazepines Scrn Urine Cocaine Screen U Marijuana (THC) Screen Ethyl Alcohol Medications Medications Current Medications Acetaminophen (Acetaminophen 325 Mg Tablet) 650 mg PO Q6H PRN PRN Reason: Headache/Pain, Scale 1-10 Al Hydroxide/Mg Hydroxide (Magnesium Hydrox/Alum Hydrox 30 Ml Oral.Susp) 30 ml PO Q6H PRN PRN Reason: Heartburn/Nausea Benztropine Mesylate (Benztropine Mesylate 1 Mg Tablet) 1 mg PO BEDTIME [facility] Last Admin: 07/22/24 21:39 Dose: 1 mg Clonidine HCl (Clonidine Hcl 0.1 Mg Tablet) 0.1 mg PO BID [facility]; Protocol Last Admin: 07/23/24 09:54 Dose: 0.1 mg Folic Acid (Folic Acid 1 Mg Tablet) 1 mg PO DAILY [facility] Last Admin: 07/23/24 09:54 Dose: 1 mg Glyburide (Glyburide 5 Mg Tablet) 5 mg PO BIDWM [facility] Last Admin: 07/23/24 09:54 Dose: 5 mg Haloperidol (Haloperidol 5 Mg Tablet) 10 mg PO BID [facility] Last Admin: 07/23/24 09:53 Dose: 10 mg Hydroxyzine HCl (Hydroxyzine Hcl 25 Mg Tablet) 25 mg PO Q6H PRN PRN Reason: mild anxiety Insulin Glargine (Insulin Glargine,Hum.Rec.Anlog 100 Unit/Ml 10 Ml Vial) 28 unit SUBCUT BEDTIME [facility] Last Admin: 07/22/24 21:30 Dose: 28 unit Magnesium Hydroxide (Milk Of Magnesia 30 Ml Oral.Susp) 30 ml PO DAILY PRN PRN Reason: Constipation Melatonin (Melatonin 3 Mg Tablet) 6 mg PO BEDTIME PRN PRN Reason: sleep Metformin HCl (Metformin Hcl 1,000 Mg Tablet) 1,000 mg PO BID [facility] Last Admin: 07/23/24 09:53 Dose: 1,000 mg Nicotine (Nicotine 21 Mg Patch.Td24) 21 mg TRANSDERMA DAILY PRN PRN Reason: smoking cessation Nicotine Polacrilex (Nicotine Polacrilex 2 Mg Gum) 4 mg BUCCAL Q2H PRN PRN Reason: Nicotine Cravings Olanzapine (Olanzapine 5 Mg Tablet) 5 mg PO TID PRN PRN Reason: agitation Last Admin: 07/23/24 09:54 Dose: 5 mg Quetiapine Fumarate (Quetiapine Fumarate 200 Mg Tablet) 200 mg PO BEDTIME [facility] Last Admin: 07/22/24 21:38 Dose: 200 mg Thiamine HCl (Thiamine Hcl 100 Mg Tablet) 100 mg PO DAILY [facility] Last Admin: 07/23/24 09:54 Dose: 100 mg Trazodone HCl (Trazodone Hcl 50 Mg Tablet) 50 mg PO BEDTIME MRX1 PRN PRN Reason: Insomnia Allergies Allergies Allergy/AdvReac Type Severity Reaction Status Date / Time codeine AdvReac Unknown Unknown Verified 07/21/24 10:51 Assessment & Plan Assessment & Plan (1) Schizophrenia, chronic condition: Status: Acute Code(s): F20.9 - Schizophrenia, unspecified (2) PTSD (post-traumatic stress disorder): Status: Acute Code(s): F43.10 - Post-traumatic stress disorder, unspecified (3) Cocaine abuse: Status: Acute Code(s): F14.10 - Cocaine abuse, uncomplicated (4) Opioid use disorder: Status: Acute Code(s): F11.90 - Opioid use, unspecified, uncomplicated (5) Diabetes: Status: Acute Code(s): E11.9 - Type 2 diabetes mellitus without complications (6) Homeless: Status: Acute Code(s): Z59.00 - Homelessness unspecified Plan Patient is a 39-year-old male with history of schizophrenia, PTSD, opioid use disorder and cocaine use disorder who was recently discharged from on 07/16 who self presents for depression, SI in the face relapse. Patient is somewhat resistant to interview, lying in bed and giving few answers. He says on discharge he went to his sister's however she kicked him out though he does not know why. Patient said after he left her house he relapsed with cocaine/opioid; did continue taking his medications however. Patient reports he has been homeless, overwhelmed and in despair and started feeling suicidal (though he made no attempt) so he self presented. He denies any current SI; denies any AVH. Hospital course: 3/ Lying in bed, isolating and keeping to himself. Patient says he is okay but feeling depressed and does not want to talk and politely declines interview. Denies any AVH or SI. -on admission patient told telegraphic typewriter operator that he went to his sister's and left from there; addiction social worker thinks that he went to a program 1st. Plan: CV Q 15 minute checks Restart/continue home meds Patient educated on: diagnosis and medication risk/benefits Informed Consent: understands Reason for continued inpatient stay Substantial Risk for: rapid decompensation Time Spent With Patient Time: Total time managing care of this patient today ____ minutes.
[2024-07-23 12:10] LABS: Glucose, Whole Blood 192 mg/dL (60-115)
[2024-07-23 17:13] LABS: Glucose, Whole Blood 176 mg/dL (60-115)
[2024-07-23 19:54] VITALS: BP 115/70; PULSE 90; RESP 16; TEMP 36.2; O2SAT 96
[2024-07-23] MEDS: Benztropine Mesylate 1 MG TABLET PO (20:37)
[2024-07-23] MEDS: QUEtiapine Fumarate 200 MG TABLET PO (20:37)
[2024-07-24 08:00] VITALS: BP 120/61; PULSE 80; RESP 20; TEMP 36.4; O2SAT 97
[2024-07-24 08:08] LABS: Glucose, Whole Blood 163 mg/dL (60-115)
[2024-07-24] MEDS: glyBURIDE 5 MG TABLET PO ×2 (08:36→16:43)
[2024-07-24] MEDS: Thiamine HCL 100 MG TABLET PO (08:36)
[2024-07-24] MEDS: Folic Acid 1 MG TABLET PO (08:37)
[2024-07-24] MEDS: metFORMIN HCl 1,000 MG TABLET 1000 MG PO ×2 (08:38→21:18)
[2024-07-24] MEDS: HaloperidoL 5 MG TABLET 10 MG PO ×2 (08:39→21:17)
[2024-07-24 08:40] VITALS: BP 120/61
[2024-07-24] MEDS: cloNIDine HCL 0.1 MG TABLET PO ×2 (08:40→21:18)
--- NOTE | 2024-07-24 10:04 | P.PNPSI_ITS ---
Subjective Subjective Date of Service: 07/24/24 Reason For Visit: depressed/SI Interim History: met with patient; discussed with team pt remains in bed and says he's depressed. No SI or AVH but says having a hard time getting over sadness. Pt reports it typically takes about 4-5 days to climb out of depression. Discussed behavioral activation and pt says he'll start gong to groups and force himself out of bed. Mental Status Exam Mental Status Exam Narrative: Pt is alert and oriented; behavior is superficially cooperative, minimally engaged; calm; patient is not in distress; dressed in hospital attire, disheveled; mood is described as ok and affect blunted, downcast; eye contact avoidant; Speech is sparse, soft; psychomotor retardation present; thought process is goal directed; thought content is on treatment; otherwise pertinent to relevant topics; denies delusional content, paranoid ideations; denies any SI/HI. Denies AVH; Patients insight and judgment are impaired Diagnostics Vital Signs (24Hr): Vital Signs - 24 hr 07/23/24 19:54 07/24/24 08:00 07/24/24 08:40 Temperature 97.1 F 97.6 F Pulse Rate 90 80 Respiratory Rate 16 20 Blood Pressure 115/70 120/61 120/61 Pulse Oximetry 96 97 Oxygen Delivery Method Room Air Room Air BMI result Body Mass Index 34.9 Labs 07/21/24 11:18 07/21/24 11:18 Labs: Laboratory Results - last 48 hr 07/22/24 07/22/24 07/23/24 17:01 20:39 07:51 POC Glucose 142 H 161 H 138 H 07/23/24 07/23/24 07/24/24 12:01 17:08 07:59 POC Glucose 192 H 176 H 163 H Medications Medications Current Medications Acetaminophen (Acetaminophen 325 Mg Tablet) 650 mg PO Q6H PRN PRN Reason: Headache/Pain, Scale 1-10 Al Hydroxide/Mg Hydroxide (Magnesium Hydrox/Alum Hydrox 30 Ml Oral.Susp) 30 ml PO Q6H PRN PRN Reason: Heartburn/Nausea Benztropine Mesylate (Benztropine Mesylate 1 Mg Tablet) 1 mg PO BEDTIME [facility] Last Admin: 07/23/24 20:37 Dose: 1 mg Clonidine HCl (Clonidine Hcl 0.1 Mg Tablet) 0.1 mg PO BID [facility]; Protocol Last Admin: 07/24/24 08:40 Dose: 0.1 mg Folic Acid (Folic Acid 1 Mg Tablet) 1 mg PO DAILY [facility] Last Admin: 07/24/24 08:37 Dose: 1 mg Glyburide (Glyburide 5 Mg Tablet) 5 mg PO BIDWM [facility] Last Admin: 07/24/24 08:36 Dose: 5 mg Haloperidol (Haloperidol 5 Mg Tablet) 10 mg PO BID [facility] Last Admin: 07/24/24 08:39 Dose: 10 mg Hydroxyzine HCl (Hydroxyzine Hcl 25 Mg Tablet) 25 mg PO Q6H PRN PRN Reason: mild anxiety Insulin Glargine (Insulin Glargine,Hum.Rec.Anlog 100 Unit/Ml 10 Ml Vial) 28 unit SUBCUT BEDTIME [facility] Last Admin: 07/23/24 20:38 Dose: Not Given Magnesium Hydroxide (Milk Of Magnesia 30 Ml Oral.Susp) 30 ml PO DAILY PRN PRN Reason: Constipation Melatonin (Melatonin 3 Mg Tablet) 6 mg PO BEDTIME PRN PRN Reason: sleep Metformin HCl (Metformin Hcl 1,000 Mg Tablet) 1,000 mg PO BID [facility] Last Admin: 07/24/24 08:38 Dose: 1,000 mg Nicotine (Nicotine 21 Mg Patch.Td24) 21 mg TRANSDERMA DAILY PRN PRN Reason: smoking cessation Nicotine Polacrilex (Nicotine Polacrilex 2 Mg Gum) 4 mg BUCCAL Q2H PRN PRN Reason: Nicotine Cravings Olanzapine (Olanzapine 5 Mg Tablet) 5 mg PO TID PRN PRN Reason: agitation Last Admin: 07/23/24 09:54 Dose: 5 mg Quetiapine Fumarate (Quetiapine Fumarate 200 Mg Tablet) 200 mg PO BEDTIME [facility] Last Admin: 07/23/24 20:37 Dose: 200 mg Thiamine HCl (Thiamine Hcl 100 Mg Tablet) 100 mg PO DAILY [facility] Last Admin: 07/24/24 08:36 Dose: 100 mg Trazodone HCl (Trazodone Hcl 50 Mg Tablet) 50 mg PO BEDTIME MRX1 PRN PRN Reason: Insomnia Allergies Allergies Allergy/AdvReac Type Severity Reaction Status Date / Time codeine AdvReac Unknown Unknown Verified 07/21/24 10:51 Assessment & Plan Assessment & Plan (1) Schizophrenia, chronic condition: Status: Acute Code(s): F20.9 - Schizophrenia, unspecified (2) PTSD (post-traumatic stress disorder): Status: Acute Code(s): F43.10 - Post-traumatic stress disorder, unspecified (3) Cocaine abuse: Status: Acute Code(s): F14.10 - Cocaine abuse, uncomplicated (4) Opioid use disorder: Status: Acute Code(s): F11.90 - Opioid use, unspecified, uncomplicated (5) Diabetes: Status: Acute Code(s): E11.9 - Type 2 diabetes mellitus without complications (6) Homeless: Status: Acute Code(s): Z59.00 - Homelessness unspecified Plan Patient is a 39-year-old male with history of schizophrenia, PTSD, opioid use disorder and cocaine use disorder who was recently discharged from on 07/16 who self presents for depression, SI in the face relapse. Patient is somewhat resistant to interview, lying in bed and giving few answers. He says on discharge he went to his sister's however she kicked him out though he does not know why. Patient said after he left her house he relapsed with cocaine/opioid; did continue taking his medications however. Patient reports he has been homeless, overwhelmed and in despair and started feeling suicidal (though he made no attempt) so he self presented. He denies any current SI; denies any AVH. Hospital course: 3/ Lying in bed, isolating and keeping to himself. Patient says he is okay but feeling depressed and does not want to talk and politely declines interview. Denies any AVH or SI. -on admission patient told process description writer that he went to his sister's and left from there; social group worker thinks that he went to a program 1st. 3/6 pt remains in bed and says he's depressed. No SI or AVH but says having a hard time getting over sadness. Pt reports it typically takes about 4-5 days to climb out of depression. Discussed behavioral activation and pt says he'll start gong to groups and force himself out of bed. c/o foot pain and agrees to gabapentin (discussed risks/side-effects) wound nurse examined feet s/p forstbite; she says left foot is healing nicely - right foot would likely benefit from bedside debridement -surgical consult placed Plan: CV Q 15 minute checks Restart/continue home meds Patient educated on: diagnosis, medication risk/benefits and medical condition Informed Consent: understands Reason for continued inpatient stay Substantial Risk for: rapid decompensation Time Spent With Patient Time: Total time managing care of this patient today ____ minutes.
[2024-07-24 11:54] LABS: Glucose, Whole Blood 281 mg/dL (60-115)
--- NOTE | 2024-07-24 15:16 | HO.WOUND ---
Wound Consult: Initial 39yr old?male admitted to [facility] to the [facility] on 07/22/24 - See progress notes and H&P for detailed history.? This patient was seen on prior admissions on the [facility] unit along with the Medical units. Wound consult placed for Bilateral Feet Frostbite on previous admissions.? Patient agreeable to assessment and photo documentation.? He was educated on the benefits of limiting standing and ambulation and keeping the wounds dry. At this time the wound continues to improve and demarcate viable tissue - recommend continued topical treatment for limb salvage. Todays assessment reveals continue improvement however the right great toe is noted for malodorous nectoric moist tissue to the tip of the great toe - this will likely benefit from Bedside Debridement. TT to Dr. La with the below assessment and TT to Dr. Hernandez with the below details. Right Foot Right Plantar Foot Right Tip of great toe Left Foot Left Plantar foot Bilateral Feet Etiology: ?Frostbite Wound Bed: Overall improving / evolving wound beds in various stages of healing. The left toes are warm and returning to normal pigmentation no open tissue noted at this time. +PP, no swelling noted and denies neuropathy today. Great toe nail is loose and may still release unclear at this time. Right foot is overall improving +PP, warm to touch and reports feeling and sensation reports nerve pain at times. The left plantar surface has dry resurfaced tissue no eschar noted at this time - eschar noted with maceration to the tip of the great toe - there is malodor noted - the necrotic tissue is moist and loose will benefit from debridement. The anterior great toe nail remains missing small red pink tissue exposed - The periwound is significantly macerated Durafiber used today for moisture management. Recommendations: 1. Provide adequate and supplemental nutrition.? 2. When applicable maintain blood glucose levels per Providers order. 3. Elevate lower legs on pillows, limit standing and walking while edema is present. 4. Bilateral Foot and Toes - Cleanse with Betadine allow to dry. Cover open wounds beds only with Durafiber AG, Cover with Dry gauze, ABD pad and elastic netting. Change every other day. Elevate legs on pillows limit walking and standing for long periods of time consecutively. Re-consult wound care Nurse for wound deterioration or wound changes.
[2024-07-24] MEDS: Gabapentin 100 MG CAPSULE 200 MG PO ×2 (16:43→21:18)
[2024-07-24 16:58] LABS: Glucose, Whole Blood 137 mg/dL (60-115)
[2024-07-24 20:00] VITALS: BP 113/69; PULSE 79; RESP 16; TEMP 36.6; O2SAT 98
[2024-07-24 21:10] LABS: Glucose, Whole Blood 168 mg/dL (60-115)
[2024-07-24] MEDS: Insulin Glargine,Hum.rec.anlog 100 UNIT/ML 10 ML VIAL 28 UNIT SUBCUT (21:17)
[2024-07-24 21:18] VITALS: BP 113/69
[2024-07-24] MEDS: QUEtiapine Fumarate 200 MG TABLET PO (21:18)
[2024-07-24] MEDS: Benztropine Mesylate 1 MG TABLET PO (21:18)
[2024-07-25 08:26] LABS: Glucose, Whole Blood 117 mg/dL (60-115)
[2024-07-25] MEDS: Folic Acid 1 MG TABLET PO (09:58)
[2024-07-25] MEDS: glyBURIDE 5 MG TABLET PO ×2 (09:58→16:17)
[2024-07-25] MEDS: Acetaminophen 325 MG TABLET 650 MG PO ×3 (09:58→21:47)
[2024-07-25] MEDS: HaloperidoL 5 MG TABLET 10 MG PO ×2 (09:58→21:26)
[2024-07-25] MEDS: Gabapentin 100 MG CAPSULE 200 MG PO ×3 (09:58→21:26)
[2024-07-25 09:59] VITALS: BP 132/77
[2024-07-25] MEDS: metFORMIN HCl 1,000 MG TABLET 1000 MG PO ×2 (09:59→21:26)
[2024-07-25] MEDS: Thiamine HCL 100 MG TABLET PO (09:59)
[2024-07-25] MEDS: cloNIDine HCL 0.1 MG TABLET PO ×2 (09:59→21:26)
--- NOTE | 2024-07-25 10:04 | P.PNPSI_ITS ---
Subjective Subjective Date of Service: 07/25/24 Reason For Visit: depressed/SI Interim History: met with patient; discussed with team Patient says he is starting to feel a little better. Discussed substance abuse and patient said I do not use drugs.. Enterprise Sales Executive reminded patient that he has been positive for cocaine for multiple recent admissions and he says that he does not use it very much quit on his house; he does not want help with a program MAT. Patient said that on discharge his plan is to go to [place] because his . Mother is dying.. Wants to make sure he is use her. He says he will stay at his sister's Mental Status Exam Mental Status Exam Narrative: Pt is alert and oriented; behavior is cooperative, more talkative calm; patient is not in distress; dressed in hospital attire, disheveled; mood is described as a lot better and affect a little brighter; eye contact improved; Speech is volume, rate and prosody; psychomotor retardation remains present; thought process is goal directed; thought content is on discharge plans; otherwise pertinent to relevant topics; denies delusional content, paranoid ideations; denies any SI/HI. Denies AVH; Patients insight and judgment are impaired but improved, likely baseline and adequate Diagnostics Vital Signs (24Hr): Vital Signs - 24 hr 07/24/24 20:00 07/24/24 21:18 07/25/24 09:59 Temperature 97.9 F Pulse Rate 79 Respiratory Rate 16 Blood Pressure 113/69 113/69 132/77 Pulse Oximetry 98 Oxygen Delivery Method Room Air BMI result Body Mass Index 34.9 Labs 07/21/24 11:18 07/21/24 11:18 Labs: Laboratory Results - last 48 hr 07/23/24 07/23/24 07/24/24 12:01 17:08 07:59 POC Glucose 192 H 176 H 163 H 07/24/24 07/24/24 07/24/24 11:51 16:54 21:05 POC Glucose 281 H 137 H 168 H 07/25/24 08:17 POC Glucose 117 H Medications Medications Current Medications Acetaminophen (Acetaminophen 325 Mg Tablet) 650 mg PO Q6H PRN PRN Reason: Headache/Pain, Scale 1-10 Last Admin: 07/25/24 09:58 Dose: 650 mg Al Hydroxide/Mg Hydroxide (Magnesium Hydrox/Alum Hydrox 30 Ml Oral.Susp) 30 ml PO Q6H PRN PRN Reason: Heartburn/Nausea Benztropine Mesylate (Benztropine Mesylate 1 Mg Tablet) 1 mg PO BEDTIME [facility]CLUDES [facility] Last Admin: 07/24/24 21:18 Dose: 1 mg Clonidine HCl (Clonidine Hcl 0.1 Mg Tablet) 0.1 mg PO BID [facility]; Protocol Last Admin: 07/25/24 09:59 Dose: 0.1 mg Folic Acid (Folic Acid 1 Mg Tablet) 1 mg PO DAILY [facility]CLUD[facility] Last Admin: 07/25/24 09:58 Dose: 1 mg Gabapentin (Gabapentin 100 Mg Capsule) 200 mg PO TID COUNT [facility]CLUD[facility] Last Admin: 07/25/24 09:58 Dose: 200 mg Glyburide (Glyburide 5 Mg Tablet) 5 mg PO BIDWM COUNT INCLUDES [facility] Last Admin: 07/25/24 09:58 Dose: 5 mg Haloperidol (Haloperidol 5 Mg Tablet) 10 mg PO BID [facility] Last Admin: 07/25/24 09:58 Dose: 10 mg Hydroxyzine HCl (Hydroxyzine Hcl 25 Mg Tablet) 25 mg PO Q6H PRN PRN Reason: mild anxiety Insulin Glargine (Insulin Glargine,Hum.Rec.Anlog 100 Unit/Ml 10 Ml Vial) 28 unit SUBCUT BEDTIME COUNT [facility]CLUDES [facility] Last Admin: 07/24/24 21:17 Dose: 28 unit Magnesium Hydroxide (Milk Of Magnesia 30 Ml Oral.Susp) 30 ml PO DAILY PRN PRN Reason: Constipation Melatonin (Melatonin 3 Mg Tablet) 6 mg PO BEDTIME PRN PRN Reason: sleep Metformin HCl (Metformin Hcl 1,000 Mg Tablet) 1,000 mg PO BID COUNT [facility]CLUD[facility] Last Admin: 07/25/24 09:59 Dose: 1,000 mg Nicotine (Nicotine 21 Mg Patch.Td24) 21 mg TRANSDERMA DAILY PRN PRN Reason: smoking cessation Nicotine Polacrilex (Nicotine Polacrilex 2 Mg Gum) 4 mg BUCCAL Q2H PRN PRN Reason: Nicotine Cravings Olanzapine (Olanzapine 5 Mg Tablet) 5 mg PO TID PRN PRN Reason: agitation Last Admin: 07/23/24 09:54 Dose: 5 mg Quetiapine Fumarate (Quetiapine Fumarate 200 Mg Tablet) 200 mg PO BEDTIME COUNT [facility]CLUDES [facility] Last Admin: 07/24/24 21:18 Dose: 200 mg Thiamine HCl (Thiamine Hcl 100 Mg Tablet) 100 mg PO DAILY COUNT [facility]CLUDES [facility] Last Admin: 07/25/24 09:59 Dose: 100 mg Trazodone HCl (Trazodone Hcl 50 Mg Tablet) 50 mg PO BEDTIME MRX1 PRN PRN Reason: Insomnia Allergies Allergies Allergy/AdvReac Type Severity Reaction Status Date / Time codeine AdvReac Unknown Unknown Verified 07/21/24 10:51 Assessment & Plan Assessment & Plan (1) Schizophrenia, chronic condition: Status: Acute Code(s): F20.9 - Schizophrenia, unspecified (2) PTSD (post-traumatic stress disorder): Status: Acute Code(s): F43.10 - Post-traumatic stress disorder, unspecified (3) Cocaine abuse: Status: Acute Code(s): F14.10 - Cocaine abuse, uncomplicated (4) Opioid use disorder: Status: Acute Code(s): F11.90 - Opioid use, unspecified, uncomplicated (5) Diabetes: Status: Acute Code(s): E11.9 - Type 2 diabetes mellitus without complications (6) Homeless: Status: Acute Code(s): Z59.00 - Homelessness unspecified Plan Patient is a 39-year-old male with history of schizophrenia, PTSD, opioid use disorder and cocaine use disorder who was recently discharged from on 07/16 who self presents for depression, SI in the face relapse. Patient is somewhat resistant to interview, lying in bed and giving few answers. He says on discharge he went to his sister's however she kicked him out though he does not know why. Patient said after he left her house he relapsed with cocaine/opioid; did continue taking his medications however. Patient reports he has been homeless, overwhelmed and in despair and started feeling suicidal (though he made no attempt) so he self presented. He denies any current SI; denies any AVH. Hospital course: 3/5 Lying in bed, isolating and keeping to himself. Patient says he is okay but feeling depressed and does not want to talk and politely declines interview. Denies any AVH or SI. -on admission patient told sports writer that he went to his sister's and left from there; web content & social media manager thinks that he went to a program 1st. 3/6 pt remains in bed and says he's depressed. No SI or AVH but says having a hard time getting over sadness. Pt reports it typically takes about 4-5 days to climb out of depression. Discussed behavioral activation and pt says he'll start gong to groups and force himself out of bed. c/o foot pain and agrees to gabapentin (discussed risks/side-effects) wound nurse examined feet s/p forsreginaldoite; she says left foot is healing nicely - right foot would likely benefit from bedside debridement -surgical consult placed 07/25 Patient says he is starting to feel a little better. Discussed substance abuse and patient said I do not use drugs.. Enterprise Sales Executive reminded patient that he has been positive for cocaine for multiple recent admissions and he says that he does not use it very much quit on his house; he does not want help with a program MAT. Patient said that on discharge his plan is to go to [place] because his . Mother is dying.. Wants to make sure he is use her. He says he will stay at his sister's Plan: CV Q 15 minute checks Restart/continue home meds Patient educated on: diagnosis, medication risk/benefits, substance abuse and medical condition Informed Consent: understands and further education needed Reason for continued inpatient stay Substantial Risk for: rapid decompensation Time Spent With Patient Time: Total time managing care of this patient today ____ minutes.
[2024-07-25 12:48] LABS: Glucose, Whole Blood 229 mg/dL (60-115)
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
[2024-07-25 17:09] LABS: Glucose, Whole Blood 156 mg/dL (60-115)
[2024-07-25 20:00] VITALS: BP 114/67; PULSE 84; RESP 16; TEMP 36.9; O2SAT 96
[2024-07-25 21:26] VITALS: BP 136/72
[2024-07-25] MEDS: Benztropine Mesylate 1 MG TABLET PO (21:27)
[2024-07-25] MEDS: QUEtiapine Fumarate 200 MG TABLET PO (21:27)
[2024-07-25 21:29] LABS: Glucose, Whole Blood 171 mg/dL (60-115)
[2024-07-25] MEDS: Insulin Glargine,Hum.rec.anlog 100 UNIT/ML 10 ML VIAL 28 UNIT SUBCUT (21:42)
[2024-07-26 08:00] VITALS: BP 109/57; PULSE 76; RESP 16; TEMP 36.4; O2SAT 94
--- NOTE | 2024-07-26 10:32 | P.PNPSI_ITS ---
Subjective Subjective Date of Service: 07/26/24 Reason For Visit: depressed/SI Subjective Notes: Conditional Voluntary and 3 Day Interim History: patient was seen and discussed in rounds today. Records and plans were reviewed. He is eating and sleeping adequately. Continues to have some depression and moderate anxiety. He has a 3 day notice in which expires on 07/29. Eating and sleeping well. No SI. No changes were made today Review of Systems Review of Systems right foot infection Yes all other systems are reviewed and are negative Mental Status Exam Mental Status Exam Narrative: in today's visit he is alert, pleasant and interactive. Normal speech. Moderate eye contact. Affect is appropriate and contained. No signs of psychosis. No SI. Cognitively is grossly intact. Judgment is intact. Diagnostics Vital Signs (24Hr): Vital Signs - 24 hr 07/25/24 20:00 07/25/24 21:26 07/26/24 08:00 Temperature 98.4 F 97.6 F Pulse Rate 84 76 Respiratory Rate 16 16 Blood Pressure 114/67 136/72 109/57 L Pulse Oximetry 96 94 Oxygen Delivery Method Room Air Room Air BMI result Body Mass Index 34.9 Labs 07/21/24 11:18 07/21/24 11:18 Labs: Laboratory Results - last 48 hr 07/24/24 07/24/24 07/24/24 11:51 16:54 21:05 POC Glucose 281 H 137 H 168 H 07/25/24 07/25/24 07/25/24 08:17 12:41 17:05 POC Glucose 117 H 229 H 156 H 07/25/24 21:25 POC Glucose 171 H Medications Medications Current Medications Acetaminophen (Acetaminophen 325 Mg Tablet) 650 mg PO Q6H PRN PRN Reason: Headache/Pain, Scale 1-10 Last Admin: 07/25/24 21:47 Dose: 650 mg Al Hydroxide/Mg Hydroxide (Magnesium Hydrox/Alum Hydrox 30 Ml Oral.Susp) 30 ml PO Q6H PRN PRN Reason: Heartburn/Nausea Benztropine Mesylate (Benztropine Mesylate 1 Mg Tablet) 1 mg PO BEDTIME [facility] Last Admin: 07/25/24 21:27 Dose: 1 mg Clonidine HCl (Clonidine Hcl 0.1 Mg Tablet) 0.1 mg PO BID [facility]; Protocol Last Admin: 07/25/24 21:26 Dose: 0.1 mg Folic Acid (Folic Acid 1 Mg Tablet) 1 mg PO DAILY [facility] Last Admin: 07/25/24 09:58 Dose: 1 mg Gabapentin (Gabapentin 100 Mg Capsule) 200 mg PO TID [facility] Last Admin: 07/25/24 21:26 Dose: 200 mg Glyburide (Glyburide 5 Mg Tablet) 5 mg PO BIDWM [facility] Last Admin: 07/26/24 08:58 Dose: Not Given Haloperidol (Haloperidol 5 Mg Tablet) 10 mg PO BID [facility] Last Admin: 07/25/24 21:26 Dose: 10 mg Hydroxyzine HCl (Hydroxyzine Hcl 25 Mg Tablet) 25 mg PO Q6H PRN PRN Reason: mild anxiety Insulin Glargine (Insulin Glargine,Hum.Rec.Anlog 100 Unit/Ml 10 Ml Vial) 28 unit SUBCUT BEDTIME [facility] Last Admin: 07/25/24 21:42 Dose: 28 unit Magnesium Hydroxide (Milk Of Magnesia 30 Ml Oral.Susp) 30 ml PO DAILY PRN PRN Reason: Constipation Melatonin (Melatonin 3 Mg Tablet) 6 mg PO BEDTIME PRN PRN Reason: sleep Metformin HCl (Metformin Hcl 1,000 Mg Tablet) 1,000 mg PO BID [facility] Last Admin: 07/25/24 21:26 Dose: 1,000 mg Nicotine (Nicotine 21 Mg Patch.Td24) 21 mg TRANSDERMA DAILY PRN PRN Reason: smoking cessation Nicotine Polacrilex (Nicotine Polacrilex 2 Mg Gum) 4 mg BUCCAL Q2H PRN PRN Reason: Nicotine Cravings Olanzapine (Olanzapine 5 Mg Tablet) 5 mg PO TID PRN PRN Reason: agitation Last Admin: 07/23/24 09:54 Dose: 5 mg Quetiapine Fumarate (Quetiapine Fumarate 200 Mg Tablet) 200 mg PO BEDTIME [facility] Last Admin: 07/25/24 21:27 Dose: 200 mg Thiamine HCl (Thiamine Hcl 100 Mg Tablet) 100 mg PO DAILY [facility] Last Admin: 07/25/24 09:59 Dose: 100 mg Trazodone HCl (Trazodone Hcl 50 Mg Tablet) 50 mg PO BEDTIME MRX1 PRN PRN Reason: Insomnia Allergies Allergies Allergy/AdvReac Type Severity Reaction Status Date / Time codeine AdvReac Unknown Unknown Verified 07/21/24 10:51 Assessment & Plan Assessment & Plan (1) Schizophrenia, chronic condition: Status: Acute Code(s): F20.9 - Schizophrenia, unspecified (2) PTSD (post-traumatic stress disorder): Status: Acute Code(s): F43.10 - Post-traumatic stress disorder, unspecified (3) Cocaine abuse: Status: Acute Code(s): F14.10 - Cocaine abuse, uncomplicated (4) Opioid use disorder: Status: Acute Code(s): F11.90 - Opioid use, unspecified, uncomplicated (5) Diabetes: Status: Acute Code(s): E11.9 - Type 2 diabetes mellitus without complications (6) Homeless: Status: Acute Code(s): Z59.00 - Homelessness unspecified Plan Patient is a 39-year-old male with history of schizophrenia, PTSD, opioid use disorder and cocaine use disorder who was recently discharged from on 07/16 who self presents for depression, SI in the face relapse. Patient is somewhat resistant to interview, lying in bed and giving few answers. He says on discharge he went to his sister's however she kicked him out though he does not know why. Patient said after he left her house he relapsed with cocaine/opioid; did continue taking his medications however. Patient reports he has been homeless, overwhelmed and in despair and started feeling suicidal (though he made no attempt) so he self presented. He denies any current SI; denies any AVH. Hospital course: 3/ Lying in bed, isolating and keeping to himself. Patient says he is okay but feeling depressed and does not want to talk and politely declines interview. Denies any AVH or SI. -on admission patient told copywriter that he went to his sister's and left from there; renal social worker thinks that he went to a program 1st. 3/ pt remains in bed and says he's depressed. No SI or AVH but says having a hard time getting over sadness. Pt reports it typically takes about 4-5 days to climb out of depression. Discussed behavioral activation and pt says he'll start gong to groups and force himself out of bed. c/o foot pain and agrees to gabapentin (discussed risks/side-effects) wound nurse examined feet s/p forstbite; she says left foot is healing nicely - right foot would likely benefit from bedside debridement -surgical consult placed 07/25 Patient says he is starting to feel a little better. Discussed substance abuse and patient said I do not use drugs.. Transmitter Operator reminded patient that he has been positive for cocaine for multiple recent admissions and he says that he does not use it very much quit on his house; he does not want help with a program MAT. Patient said that on discharge his plan is to go to [place] because his . Mother is dying.. Wants to make sure he is use her. He says he will stay at his sister's 07/26/24: Continue current plans and regimen Plan: CV Q 15 minute checks Restart/continue home meds Reason for continued inpatient stay Substantial Risk for: med/psych decompensation Time Spent With Patient Time: Total time managing care of this patient today ____ minutes.
[2024-07-26 12:16] LABS: Glucose, Whole Blood 237 mg/dL (60-115)
[2024-07-26] MEDS: glyBURIDE 5 MG TABLET PO ×2 (12:59→16:56)
[2024-07-26] MEDS: Folic Acid 1 MG TABLET PO (12:59)
[2024-07-26] MEDS: HaloperidoL 5 MG TABLET 10 MG PO ×2 (12:59→21:27)
[2024-07-26] MEDS: Gabapentin 100 MG CAPSULE 200 MG PO ×3 (12:59→21:28)
[2024-07-26] MEDS: metFORMIN HCl 1,000 MG TABLET 1000 MG PO ×2 (13:00→21:28)
[2024-07-26] MEDS: Thiamine HCL 100 MG TABLET PO (13:00)
[2024-07-26] MEDS: Acetaminophen 325 MG TABLET 650 MG PO (16:56)
[2024-07-26 17:37] LABS: Glucose, Whole Blood 192 mg/dL (60-115)
[2024-07-26 20:32] LABS: Glucose, Whole Blood 185 mg/dL (60-115)
[2024-07-26] MEDS: QUEtiapine Fumarate 200 MG TABLET PO (21:27)
[2024-07-26] MEDS: Insulin Glargine,Hum.rec.anlog 100 UNIT/ML 10 ML VIAL 28 UNIT SUBCUT (21:27)
[2024-07-26] MEDS: Benztropine Mesylate 1 MG TABLET PO (21:28)
[2024-07-27 08:10] LABS: Glucose, Whole Blood 214 mg/dL (60-115)
[2024-07-27] MEDS: glyBURIDE 5 MG TABLET PO ×2 (08:35→17:52)
--- NOTE | 2024-07-27 09:29 | HO.PSYCHPN ---
Subjective Subjective Date of Service: 07/27/24 Reason For Visit: depressed/SI Subjective Notes: Conditional Voluntary and 3 Day Interim History: patient was seen and discussed in rounds today. Records and plans were reviewed. He did finally take his medications and agreed to having his POC is done yesterday after I talked to him. He is eating and sleeping adequately. Continues to be preoccupied and guarded. Responding to internal stimuli but denies AVH. No changes were made today Review of Systems Review of Systems Yes all other systems are reviewed and are negative Mental Status Exam Mental Status Exam Narrative: in today's visit he is alert, pleasant and interactive. Normal speech. Moderate eye contact. Affect is appropriate and contained. No signs of psychosis other than some response to internal stimuli. Denies AVH.. No SI. Cognitively is grossly intact. Judgment is intact. Could not assess mobility because he was in bed and did not want to get up Diagnostics Vital Signs (24Hr): BMI result Body Mass Index 34.9 Labs 07/21/24 11:18 07/21/24 11:18 Labs: Laboratory Results - last 48 hr 07/25/24 07/25/24 07/25/24 12:41 17:05 21:25 POC Glucose 229 H 156 H 171 H 07/26/24 07/26/24 07/26/24 12:05 17:30 20:28 POC Glucose 237 H 192 H 185 H 07/27/24 08:06 POC Glucose 214 H Medications Medications Current Medications Acetaminophen (Acetaminophen 325 Mg Tablet) 650 mg PO Q6H PRN PRN Reason: Headache/Pain, Scale 1-10 Last Admin: 07/26/24 16:56 Dose: 650 mg Al Hydroxide/Mg Hydroxide (Magnesium Hydrox/Alum Hydrox 30 Ml Oral.Susp) 30 ml PO Q6H PRN PRN Reason: Heartburn/Nausea Benztropine Mesylate (Benztropine Mesylate 1 Mg Tablet) 1 mg PO BEDTIME [facility] Last Admin: 07/26/24 21:28 Dose: 1 mg Clonidine HCl (Clonidine Hcl 0.1 Mg Tablet) 0.1 mg PO BID [facility]; Protocol Last Admin: 07/26/24 21:23 Dose: Not Given Folic Acid (Folic Acid 1 Mg Tablet) 1 mg PO DAILY [facility] Last Admin: 07/26/24 12:59 Dose: 1 mg Gabapentin (Gabapentin 100 Mg Capsule) 200 mg PO TID [facility] Last Admin: 07/26/24 21:28 Dose: 200 mg Glyburide (Glyburide 5 Mg Tablet) 5 mg PO BIDWM [facility] Last Admin: 07/27/24 08:35 Dose: 5 mg Haloperidol (Haloperidol 5 Mg Tablet) 10 mg PO BID [facility] Last Admin: 07/26/24 21:27 Dose: 10 mg Hydroxyzine HCl (Hydroxyzine Hcl 25 Mg Tablet) 25 mg PO Q6H PRN PRN Reason: mild anxiety Insulin Glargine (Insulin Glargine,Hum.Rec.Anlog 100 Unit/Ml 10 Ml Vial) 28 unit SUBCUT BEDTIME [facility] Last Admin: 07/26/24 21:27 Dose: 28 unit Magnesium Hydroxide (Milk Of Magnesia 30 Ml Oral.Susp) 30 ml PO DAILY PRN PRN Reason: Constipation Melatonin (Melatonin 3 Mg Tablet) 6 mg PO BEDTIME PRN PRN Reason: sleep Metformin HCl (Metformin Hcl 1,000 Mg Tablet) 1,000 mg PO BID [facility] Last Admin: 07/26/24 21:28 Dose: 1,000 mg Nicotine (Nicotine 21 Mg Patch.Td24) 21 mg TRANSDERMA DAILY PRN PRN Reason: smoking cessation Nicotine Polacrilex (Nicotine Polacrilex 2 Mg Gum) 4 mg BUCCAL Q2H PRN PRN Reason: Nicotine Cravings Olanzapine (Olanzapine 5 Mg Tablet) 5 mg PO TID PRN PRN Reason: agitation Last Admin: 07/23/24 09:54 Dose: 5 mg Quetiapine Fumarate (Quetiapine Fumarate 200 Mg Tablet) 200 mg PO BEDTIME [facility] Last Admin: 07/26/24 21:27 Dose: 200 mg Thiamine HCl (Thiamine Hcl 100 Mg Tablet) 100 mg PO DAILY [facility] Last Admin: 07/26/24 13:00 Dose: 100 mg Trazodone HCl (Trazodone Hcl 50 Mg Tablet) 50 mg PO BEDTIME MRX1 PRN PRN Reason: Insomnia Allergies Allergies Allergy/AdvReac Type Severity Reaction Status Date / Time codeine AdvReac Unknown Unknown Verified 07/21/24 10:51 Assessment & Plan Assessment & Plan (1) Schizophrenia, chronic condition: Status: Acute Code(s): F20.9 - Schizophrenia, unspecified (2) PTSD (post-traumatic stress disorder): Status: Acute Code(s): F43.10 - Post-traumatic stress disorder, unspecified (3) Cocaine abuse: Status: Acute Code(s): F14.10 - Cocaine abuse, uncomplicated (4) Opioid use disorder: Status: Acute Code(s): F11.90 - Opioid use, unspecified, uncomplicated (5) Diabetes: Status: Acute Code(s): E11.9 - Type 2 diabetes mellitus without complications (6) Homeless: Status: Acute Code(s): Z59.00 - Homelessness unspecified Plan Patient is a 39-year-old male with history of schizophrenia, PTSD, opioid use disorder and cocaine use disorder who was recently discharged from on 07/16 who self presents for depression, SI in the face relapse. Patient is somewhat resistant to interview, lying in bed and giving few answers. He says on discharge he went to his sister's however she kicked him out though he does not know why. Patient said after he left her house he relapsed with cocaine/opioid; did continue taking his medications however. Patient reports he has been homeless, overwhelmed and in despair and started feeling suicidal (though he made no attempt) so he self presented. He denies any current SI; denies any AVH. Hospital course: 07/23 Lying in bed, isolating and keeping to himself. Patient says he is okay but feeling depressed and does not want to talk and politely declines interview. Denies any AVH or SI. -on admission patient told procedure writer that he went to his sister's and left from there; social sciences research scientist thinks that he went to a program 1st. 3/ pt remains in bed and says he's depressed. No SI or AVH but says having a hard time getting over sadness. Pt reports it typically takes about 4-5 days to climb out of depression. Discussed behavioral activation and pt says he'll start gong to groups and force himself out of bed. c/o foot pain and agrees to gabapentin (discussed risks/side-effects) wound nurse examined feet s/p forstbite; she says left foot is healing nicely - right foot would likely benefit from bedside debridement -surgical consult placed / Patient says he is starting to feel a little better. Discussed substance abuse and patient said I do not use drugs.. [facility] Resistance reminded patient that he has been positive for cocaine for multiple recent admissions and he says that he does not use it very much quit on his house; he does not want help with a program MAT. Patient said that on discharge his plan is to go to [place] because his . Mother is dying.. Wants to make sure he is use her. He says he will stay at his sister's 07/26/24: Continue current plans and regimen 07/27: Continue current regimen and plans Plan: CV Q 15 minute checks Restart/continue home meds Reason for continued inpatient stay Substantial Risk for: med/psych decompensation Time Spent With Patient Time: Total time managing care of this patient today ____ minutes.
[2024-07-27] MEDS: HaloperidoL 5 MG TABLET 10 MG PO ×2 (09:30→21:41)
[2024-07-27] MEDS: Folic Acid 1 MG TABLET PO (09:36)
[2024-07-27] MEDS: Gabapentin 100 MG CAPSULE 200 MG PO ×3 (09:37→21:41)
[2024-07-27] MEDS: Docusate Sodium 100 MG CAPSULE PO ×2 (11:45→21:41)
[2024-07-27 16:58] LABS: Glucose, Whole Blood 141 mg/dL (60-115)
[2024-07-27 20:00] VITALS: BP 121/72; PULSE 98; RESP 15; TEMP 36.3
[2024-07-27 21:38] LABS: Glucose, Whole Blood 271 mg/dL (60-115)
[2024-07-27] MEDS: Benztropine Mesylate 1 MG TABLET PO (21:41)
[2024-07-27] MEDS: metFORMIN HCl 1,000 MG TABLET 1000 MG PO (21:41)
[2024-07-27] MEDS: QUEtiapine Fumarate 200 MG TABLET PO (21:41)
[2024-07-27] MEDS: cloNIDine HCL 0.1 MG TABLET PO (21:41)
[2024-07-27] MEDS: Insulin Glargine,Hum.rec.anlog 100 UNIT/ML 10 ML VIAL 28 UNIT SUBCUT (21:41)
[2024-07-27 21:54] VITALS: O2SAT 100
[2024-07-28 08:00] VITALS: RESP 18
[2024-07-28] MEDS: metFORMIN HCl 1,000 MG TABLET 1000 MG PO ×2 (08:14→21:27)
[2024-07-28] MEDS: glyBURIDE 5 MG TABLET PO ×2 (08:14→17:11)
[2024-07-28] MEDS: Docusate Sodium 100 MG CAPSULE PO ×2 (08:14→21:28)
[2024-07-28] MEDS: Gabapentin 100 MG CAPSULE 200 MG PO ×3 (08:14→21:27)
[2024-07-28] MEDS: HaloperidoL 5 MG TABLET 10 MG PO ×2 (08:14→21:28)
[2024-07-28] MEDS: Folic Acid 1 MG TABLET PO (08:14)
[2024-07-28] MEDS: Thiamine HCL 100 MG TABLET PO (08:14)
--- NOTE | 2024-07-28 09:55 | HO.PSYCHPN ---
Subjective Subjective Date of Service: 07/28/24 Reason For Visit: depressed/SI Interim History: met with patient; discussed with team; reviewed chart Patient reports that he is doing well, depression gone, no SI, no AVH and that he is feeling ready for discharge. Buyer Assistant again discussed patient's historical struggles with substance abuse. Initially patient says he has not struggled with cocaine use since the 3rd grade... However after talking further patient acknowledged that he has struggled with substance abuse as rewriter referenced past [place] 35. Patient said that it did help some, going to a Section 35, however he also said he felt very locked up which caused him to be too much in [his].. Own head which he found very difficult and counter therapeutic. Patient said he feels the same way now about going to a substance abuse program, that was too many people and causes claustrophobic feeling that he really does not feel he can tolerate. Patient said that he is going to try an remained sober on his own and feels that he can do so. He acknowledged that if he were to be Section 35 again, so be it but that he plans to stay sober. Mental Status Exam Mental Status Exam Narrative: Pt is alert and oriented; behavior is cooperative, friendly on approach, more social in the milieu and calm; patient is not in distress; dressed in casual attire with adequate grooming and hygiene; mood is described as okay and affect congruent, brighter, more engaged; eye contact appropriate; Speech is a little slow and soft but overall WNL; psychomotor retardation present; thought process is organized and goal directed; Thought content is on tx, discharge; otherwise pertinent to relevant topics and without any delusional content, paranoid ideations or grandiosity; denies any SI/HI. Denies AVH and there is no evidence of perceptual disturbance. Patients insight and judgment fair. Diagnostics Vital Signs (24Hr): Vital Signs - 24 hr 07/27/24 20:00 07/27/24 21:54 07/28/24 08:00 Temperature 97.4 F Pulse Rate 98 Respiratory Rate 15 18 Blood Pressure 121/72 Pulse Oximetry 100 BMI result Body Mass Index 34.9 Labs 07/21/24 11:18 07/21/24 11:18 Labs: Laboratory Results - last 48 hr 07/26/24 07/26/24 07/26/24 12:05 17:30 20:28 POC Glucose 237 H 192 H 185 H 07/27/24 07/27/24 07/27/24 08:06 16:54 21:33 POC Glucose 214 H 141 H 271 H Medications Medications Current Medications Acetaminophen (Acetaminophen 325 Mg Tablet) 650 mg PO Q6H PRN PRN Reason: Headache/Pain, Scale 1-10 Last Admin: 07/26/24 16:56 Dose: 650 mg Al Hydroxide/Mg Hydroxide (Magnesium Hydrox/Alum Hydrox 30 Ml Oral.Susp) 30 ml PO Q6H PRN PRN Reason: Heartburn/Nausea Benztropine Mesylate (Benztropine Mesylate 1 Mg Tablet) 1 mg PO BEDTIME [facility] Last Admin: 07/27/24 21:41 Dose: 1 mg Clonidine HCl (Clonidine Hcl 0.1 Mg Tablet) 0.1 mg PO BID [facility]; Protocol Last Admin: 07/28/24 08:16 Dose: Not Given Docusate Sodium (Docusate Sodium 100 Mg Capsule) 100 mg PO BID [facility] Last Admin: 07/28/24 08:14 Dose: 100 mg Folic Acid (Folic Acid 1 Mg Tablet) 1 mg PO DAILY [facility] Last Admin: 07/28/24 08:14 Dose: 1 mg Gabapentin (Gabapentin 100 Mg Capsule) 200 mg PO TID [facility] Last Admin: 07/28/24 08:14 Dose: 200 mg Glyburide (Glyburide 5 Mg Tablet) 5 mg PO BIDWM [facility] Last Admin: 07/28/24 08:14 Dose: 5 mg Haloperidol (Haloperidol 5 Mg Tablet) 10 mg PO BID [facility] Last Admin: 07/28/24 08:14 Dose: 10 mg Hydroxyzine HCl (Hydroxyzine Hcl 25 Mg Tablet) 25 mg PO Q6H PRN PRN Reason: mild anxiety Insulin Glargine (Insulin Glargine,Hum.Rec.Anlog 100 Unit/Ml 10 Ml Vial) 28 unit SUBCUT BEDTIME [facility] Last Admin: 07/27/24 21:41 Dose: 28 unit Magnesium Hydroxide (Milk Of Magnesia 30 Ml Oral.Susp) 30 ml PO DAILY PRN PRN Reason: Constipation Melatonin (Melatonin 3 Mg Tablet) 6 mg PO BEDTIME PRN PRN Reason: sleep Metformin HCl (Metformin Hcl 1,000 Mg Tablet) 1,000 mg PO BID [facility] Last Admin: 07/28/24 08:14 Dose: 1,000 mg Nicotine (Nicotine 21 Mg Patch.Td24) 21 mg TRANSDERMA DAILY PRN PRN Reason: smoking cessation Nicotine Polacrilex (Nicotine Polacrilex 2 Mg Gum) 4 mg BUCCAL Q2H PRN PRN Reason: Nicotine Cravings Olanzapine (Olanzapine 5 Mg Tablet) 5 mg PO TID PRN PRN Reason: agitation Last Admin: 07/23/24 09:54 Dose: 5 mg Quetiapine Fumarate (Quetiapine Fumarate 200 Mg Tablet) 200 mg PO BEDTIME [facility] Last Admin: 07/27/24 21:41 Dose: 200 mg Thiamine HCl (Thiamine Hcl 100 Mg Tablet) 100 mg PO DAILY [facility] Last Admin: 07/28/24 08:14 Dose: 100 mg Trazodone HCl (Trazodone Hcl 50 Mg Tablet) 50 mg PO BEDTIME MRX1 PRN PRN Reason: Insomnia Allergies Allergies Allergy/AdvReac Type Severity Reaction Status Date / Time codeine AdvReac Unknown Unknown Verified 07/21/24 10:51 Assessment & Plan Assessment & Plan (1) Schizophrenia, chronic condition: Status: Acute Code(s): F20.9 - Schizophrenia, unspecified (2) PTSD (post-traumatic stress disorder): Status: Acute Code(s): F43.10 - Post-traumatic stress disorder, unspecified (3) Cocaine abuse: Status: Acute Code(s): F14.10 - Cocaine abuse, uncomplicated (4) Opioid use disorder: Status: Acute Code(s): F11.90 - Opioid use, unspecified, uncomplicated (5) Diabetes: Status: Acute Code(s): E11.9 - Type 2 diabetes mellitus without complications (6) Homeless: Status: Acute Code(s): Z59.00 - Homelessness unspecified Plan Patient is a 39-year-old male with history of schizophrenia, PTSD, opioid use disorder and cocaine use disorder who was recently discharged from on 07/16 who self presents for depression, SI in the face relapse. Patient is somewhat resistant to interview, lying in bed and giving few answers. He says on discharge he went to his sister's however she kicked him out though he does not know why. Patient said after he left her house he relapsed with cocaine/opioid; did continue taking his medications however. Patient reports he has been homeless, overwhelmed and in despair and started feeling suicidal (though he made no attempt) so he self presented. He denies any current SI; denies any AVH. Hospital course: 07/23 Lying in bed, isolating and keeping to himself. Patient says he is okay but feeling depressed and does not want to talk and politely declines interview. Denies any AVH or SI. -on admission patient told rewriter that he went to his sister's and left from there; high school social studies teacher thinks that he went to a program 1st. 07/24 pt remains in bed and says he's depressed. No SI or AVH but says having a hard time getting over sadness. Pt reports it typically takes about 4-5 days to climb out of depression. Discussed behavioral activation and pt says he'll start gong to groups and force himself out of bed. c/o foot pain and agrees to gabapentin (discussed risks/side-effects) wound nurse examined feet s/p forstbite; she says left foot is healing nicely - right foot would likely benefit from bedside debridement -surgical consult placed 07/25 Patient says he is starting to feel a little better. Discussed substance abuse and patient said I do not use drugs.. Buyer Assistant reminded patient that he has been positive for cocaine for multiple recent admissions and he says that he does not use it very much quit on his house; he does not want help with a program MAT. Patient said that on discharge his plan is to go to [place] because his . Mother is dying.. Wants to make sure he is use her. He says he will stay at his sister's 07/26/24: Continue current plans and regimen 07/27: Continue current regimen and plans 07/28 Patient reports that he is doing well, depression gone, no SI, no AVH and that he is feeling ready for discharge. Buyer Assistant again discussed patient's historical struggles with substance abuse. Initially patient says he has not struggled with cocaine use since the 3rd grade... However after talking further patient acknowledged that he has struggled with substance abuse as rewriter referenced past [employer] 35. Patient said that it did help some, going to a Section 35, however he also said he felt very locked up which caused him to be too much in [his].. Own head which he found very difficult and counter therapeutic. Patient said he feels the same way now about going to a substance abuse program, that was too many people and causes claustrophobic feeling that he really does not feel he can tolerate. Patient said that he is going to try an remained sober on his own and feels that he can do so. He acknowledged that if he were to be Section 35 again, so be it but that he plans to stay sober. Patient said that he would come back to the hospital feet and felt unsafe. Patient's 3 day notice is due tomorrow. He is at baseline and he is not in imminent risk for harm to self or others. Plan: 3 day notice Q 15 minute checks Restart/continue home meds Patient educated on: diagnosis, medication risk/benefits, substance abuse and medical condition Informed Consent: understands Reason for continued inpatient stay Substantial Risk for: stable for discharge Time Spent With Patient Time: Total time managing care of this patient today ____ minutes.
[2024-07-28 12:01] LABS: Glucose, Whole Blood 258 mg/dL (60-115)
[2024-07-28 20:00] VITALS: BP 129/73; PULSE 78; TEMP 36.9; O2SAT 97
[2024-07-28 20:48] LABS: Glucose, Whole Blood 170 mg/dL (60-115)
[2024-07-28] MEDS: cloNIDine HCL 0.1 MG TABLET PO (21:27)
[2024-07-28] MEDS: Benztropine Mesylate 1 MG TABLET PO (21:28)
[2024-07-28] MEDS: QUEtiapine Fumarate 200 MG TABLET PO (21:28)
[2024-07-28] MEDS: Insulin Glargine,Hum.rec.anlog 100 UNIT/ML 10 ML VIAL 28 UNIT SUBCUT (21:28)
[2024-07-29 08:38] LABS: Glucose, Whole Blood 130 mg/dL (60-115)
[2024-07-29 09:29] VITALS: BP 116/73; PULSE 88; RESP 16; TEMP 36.4; O2SAT 99
[2024-07-29] MEDS: glyBURIDE 5 MG TABLET PO (09:30)
[2024-07-29] MEDS: HaloperidoL 5 MG TABLET 10 MG PO (09:30)
[2024-07-29] MEDS: cloNIDine HCL 0.1 MG TABLET PO (09:30)
[2024-07-29] MEDS: Docusate Sodium 100 MG CAPSULE PO (09:30)
[2024-07-29] MEDS: Thiamine HCL 100 MG TABLET PO (09:30)
[2024-07-29] MEDS: Folic Acid 1 MG TABLET PO (09:30)
[2024-07-29] MEDS: Gabapentin 100 MG CAPSULE 200 MG PO (09:31)
[2024-07-29] MEDS: metFORMIN HCl 1,000 MG TABLET 1000 MG PO (09:31)
[2024-07-29] MEDS: Acetaminophen 325 MG TABLET 650 MG PO (10:12)
--- NOTE | 2024-07-29 11:03 | PM.PSYDC ---
DS: Providers Provider Date of Service: 07/29/24 Date of admission: 07/22/24 11:28 Date of discharge: 07/29/24 Primary care physician: None Physician Consults: 07/23/24 09:57 Consult to Wound Care Routine Reason for consultation: b/l frostbite wounds 07/24/24 14:49 Consult to General Surgery Routine Consulting Provider: [facility] General Surgeons Reason for consultation: right foot wound s/p duarte debridement DS: Diagnosis Discharge Diagnosis (1) Schizophrenia, chronic condition: Status: Acute (2) PTSD (post-traumatic stress disorder): Status: Acute (3) Cocaine abuse: Status: Acute (4) Opioid use disorder: Status: Acute (5) Diabetes: Status: Acute (6) Homeless: Status: Acute DS: Medications Discharge Medications Home Medications: Previous Rx's ?Medication ?Instructions ?Recorded benztropine 1 mg tablet 1 mg PO BEDTIME #30 tabs 07/16/24 clonidine HCl 0.1 mg tablet 0.1 mg PO BID #60 tabs 07/16/24 glyburide 5 mg tablet 5 mg PO BIDWM #60 tabs 07/16/24 haloperidol 5 mg tablet 10 mg (2 x 5 mg) PO BID #60 tabs 07/16/24 melatonin 3 mg tablet 6 mg (2 x 3 mg) PO BEDTIME PRN 07/16/24 sleep #60 tabs metformin 1,000 mg tablet 1,000 mg PO BID #60 tabs 07/16/24 quetiapine 200 mg tablet 200 mg PO BEDTIME #30 tabs 07/16/24 trazodone 50 mg tablet 50 mg PO BEDTIME MRX1 PRN Insomnia 07/16/24 #30 tabs docusate sodium 100 mg capsule 100 mg PO BID 30 days #60 caps 07/29/24 Mental Status Exam Mental Status Exam Narrative: Pt is alert and oriented; behavior is cooperative, friendly on approach, more social in the milieu and calm; patient is not in distress; dressed in casual attire with adequate grooming and hygiene; mood is described as good and affect congruent, brighter, more engaged; eye contact appropriate; Speech is a little slow and soft but overall WNL; psychomotor retardation present; thought process is organized and goal directed; Thought content is on tx, discharge; otherwise pertinent to relevant topics and without any delusional content, paranoid ideations or grandiosity; denies any SI/HI. Denies AVH and there is no evidence of perceptual disturbance. Patients insight and judgment fair. Data Data Completed and Pending Completed studies during hospitalization [Text1]: 07/22/24 07/22/24 07/23/24 17:01 20:39 07:51 POC Glucose 142 H 161 H 138 H 07/23/24 07/23/24 07/24/24 12:01 17:08 07:59 POC Glucose 192 H 176 H 163 H 07/24/24 07/24/24 07/24/24 11:51 16:54 21:05 POC Glucose 281 H 137 H 168 H 07/25/24 07/25/24 07/25/24 08:17 12:41 17:05 POC Glucose 117 H 229 H 156 H 07/25/24 07/26/24 07/26/24 21:25 12:05 17:30 POC Glucose 171 H 237 H 192 H 07/26/24 07/27/24 07/27/24 20:28 08:06 16:54 POC Glucose 185 H 214 H 141 H 07/27/24 07/28/24 07/28/24 21:33 11:56 20:45 POC Glucose 271 H 258 H 170 H 07/29/24 08:34 POC Glucose 130 H DS: Summary Hospital Course Hospital Course: Patient is a 39-year-old male with history of schizophrenia, PTSD, opioid use disorder and cocaine use disorder who was recently discharged from on 07/16 who self presents for depression, SI in the face relapse. Patient is somewhat resistant to interview, lying in bed and giving few answers. He says on discharge he went to his sister's however she kicked him out though he does not know why. Patient said after he left her house he relapsed with cocaine/opioid; did continue taking his medications however. Patient reports he has been homeless, overwhelmed and in despair and started feeling suicidal (though he made no attempt) so he self presented. He denies any current SI; denies any AVH. Hospital course: 07/23 Lying in bed, isolating and keeping to himself. Patient says he is okay but feeling depressed and does not want to talk and politely declines interview. Denies any AVH or SI. -on admission patient told race and sports book writer that he went to his sister's and left from there; social service coordinator thinks that he went to a program 1st. 07/24 pt remains in bed and says he's depressed. No SI or AVH but says having a hard time getting over sadness. Pt reports it typically takes about 4-5 days to climb out of depression. Discussed behavioral activation and pt says he'll start gong to groups and force himself out of bed. c/o foot pain and agrees to gabapentin (discussed risks/side-effects) wound nurse examined feet s/p forstbite; she says left foot is healing nicely - right foot would likely benefit from bedside debridement -surgical consult placed 07/25 Patient says he is starting to feel a little better. Discussed substance abuse and patient said I do not use drugs.. Content Writer reminded patient that he has been positive for cocaine for multiple recent admissions and he says that he does not use it very much quit on his house; he does not want help with a program MAT. Patient said that on discharge his plan is to go to [place] because his . Mother is dying.. Wants to make sure he is use her. He says he will stay at his sister's 07/26/24: Continue current plans and regimen 07/27: Continue current regimen and plans 07/28 Patient reports that he is doing well, depression gone, no SI, no AVH and that he is feeling ready for discharge. Content Writer again discussed patient's historical struggles with substance abuse. Initially patient says he has not struggled with cocaine use since the 3rd grade... However after talking further patient acknowledged that he has struggled with substance abuse as race and sports book writer referenced past [place] [employer]. Patient said that it did help some, going to a [place] [employer], however he also said he felt very locked up which caused him to be too much in [his].. Own head which he found very difficult and counter therapeutic. Patient said he feels the same way now about going to a substance abuse program, that was too many people and causes claustrophobic feeling that he really does not feel he can tolerate. Patient said that he is going to try an remained sober on his own and feels that he can do so; he is not interested in MAT. He acknowledged that if he were to be [place] 35 again, so be it but that he plans to stay sober. Patient said that he would come back to the hospital feet and felt unsafe. Patient came to the hospital with his home medications much he said he will take with him. Patient's 3 day notice is due tomorrow. He is at baseline. He has also been reconnected with DM. Patient remains vulnerable to relapse and decompensation, this is a chronic struggle for him that will not change with longer stay on inpatient unit. He is not in imminent risk for harm to self or others and appropriate to return to the community for treatment. His request for discharge honored. Discussed insulin, Lantus and patient at this time does not want to continue with Lantus at bedtime seemingly because he is not sure how consistently he will be able to remain housed.? Regarding wound care, patient agrees to follow-up with Wound Care Clinic and appointment is being made.? Patient practiced with nursing and is able to adequately do wound care by himself and patient will be discharged with supplies Time spent discussing smoking cessation with patient: 3 to 10 minutes Status at Discharge Functional status at discharge: uses cane/walker Overall status at discharge: patient is back to baseline Time Spent with Patient Time attestation: Total time managing care of this patient today _40___ minutes. Time spent: Greater than 30 minutes Specific discharge activities: Met with patient; discussed with team; prescriptions, charting Discharge Plan Discharge Anticipated Discharge Date/Time: 07/29/24 11:50 Patient Disposition: [facility] Discharge Diagnosis: Schizoaffective disorder, depressed type Referrals: [facility] Support [facility] (STAFF GENETIC COUNSELOR) [Other] - 07/30/24 11:00 am (Hospital Discharge Appointment Initial diagnostic evaluation in person for therapy/psychiatry services ) Physician,None [Primary Care Provider] - 1 Week Suki Wheat MD [Physician] - 08/05/24 1:45 pm (in office appointment ) Discharge Medications: New docusate sodium 100 mg Capsule 100 mg PO BID 30 Days Qty: 60 0RF Continued clonidine HCl 0.1 mg Tablet 0.1 mg PO BID Qty: 60 0RF Protocol: Hold for SBP< HOLD for SBP < : 90 haloperidol 5 mg Tablet 10 mg PO BID Qty: 60 0RF trazodone 50 mg Tablet 50 mg PO BEDTIME MRX1 PRN (Reason: Insomnia) Qty: 30 0RF glyburide 5 mg Tablet 5 mg PO BIDWM Qty: 60 0RF quetiapine 200 mg Tablet 200 mg PO BEDTIME Qty: 30 0RF benztropine 1 mg Tablet 1 mg PO BEDTIME Qty: 30 0RF melatonin 3 mg Tablet 6 mg PO BEDTIME PRN (Reason: sleep) Qty: 60 0RF metformin 1,000 mg Tablet 1,000 mg PO BID Qty: 60 0RF Discontinued acetaminophen 325 mg Tablet 650 mg PO Q6H PRN (Reason: Headache/Pain, Scale 1-10) Qty: 0 0RF olanzapine 5 mg Tablet 5 mg PO TID PRN (Reason: agitation) Qty: 15 0RF insulin glargine [Lantus Solostar U-100 Insulin] 100 unit/mL (3 mL) insulin pen 28 unit subcut QPM Qty: 15 0RF Discharge Orders: Discharge Order (Routine); Ordered 07/29/24 Ordered By: Darian Hernandez Diet: diabetic diet if willing Activity on Discharge: Use cane or walker Stand Alone Forms: Patient Portal Discharge page, Community Support Print Language: Bulgarian Activity Restrictions/Additional Instructions: Topical Wound Care Recommendations: Right Great Toe - Cleanse with Betadine, allow to dry. Cover with cut piece of Durafiber AG followed by dry gauze and Pad secure with tape. Recommend follow up out patient Wound Clinic at [address] [place] [address] and to call for an appointment at time of discharge. [phone].? Care Plan Goals: Maintain mood and safe behaviors Take medications as prescribed Continue to pursue sobriety Practice coping skills Continue with outpatient providers and reach out to them as needed Health Concerns: Mood stability and behaviors Sobriety Plan of Treatment: Follow up with your PCP, psychiatric provider and other outpatient providers regarding above concerns Take medications as prescribed Assessment: Risk assessment at time of discharge:? Patient was interviewed prior to discharge and found to be fully oriented and without any SI or HI. Patient has improved insight and judgment and wants to continue treatment. Patient is not in imminent risk of harm to self or others and has a safety plan that includes presenting to the closest ER or calling 911 if feeling unsafe.? Patient has been observed closely by nursing and unit staff throughout admission; patient has not engaged in any behaviors that suggest dangerousness to self or others and has demonstrated appropriate behaviors and impulse control Discharge Date/Time: 07/29/24 12:15
--- NOTE | 2024-07-29 11:14 | HO.WOUND ---
Wound Consult: Follow up 39yr old?male admitted to [facility] to the Behavioral Health Unit on 07/22/24 - See progress notes and H&P for detailed history.? This patient was seen on prior admissions on the behavioral health unit along with the Medical units. Wound consult follow up for Bilateral Feet Frostbite on previous admissions.? Patient agreeable to assessment and photo documentation.? He was seen by Dr. La this admission with bedside debridement performed to the right great toe. Todays assessment is prior to his discharge. He reports he is going to his sisters and reports access to clean environment to change dressing. He was educated on step by step instructions for dressing changes. Todays assessment reveals complete healing to the left foot - dry skin noted no open wounds no topical dressings needed to the left foot. The right foot continued to improve the only remaining wound is to the great toe. He reports improved comfort and decrease in pain in the past few days. Given recent debridement he will need dressing changes every other day. Recommend outpt wound clinic follow up and follow up with general surgery. Per provider he is willing to one follow up - he is agreeable to Wound clinic and they will monitor for wound healing. Right Foot Right Plantar Foot Right Great Toe Etiology: ?Frostbite s/p great toe debridement Wound Bed: Overall improving red moist viable wound bed with small 0.3cm central area of light brown slough. +PP, no swelling noted and denies neuropathy today. Periwound - dry and intact - no maceration noted at todays assessment. Left Foot Left Plantar foot Left Foot Healed. Recommendations: 1. Provide adequate and supplemental nutrition.? 2. When applicable maintain blood glucose levels per Providers order. 3. Elevate lower legs on pillows, limit standing and walking while edema is present. 4. Right Great Toe - Cleanse with Betadine, allow to dry. Cover with cut piece of Durafiber AG followed by dry gauze and Pad secure with tape. Recommend follow up out patient Wound Clinic at [address] [place] [address], [place] [address] and to call for an appointment at time of discharge. [phone].? Re-consult wound care Nurse for wound deterioration or wound changes.
[2024-07-29] MEDS: Naloxone HCl Nasal TAKE HOME 4 MG SPRAY 8 MG NOSTRILALT (11:43)
[2024-07-29 11:46] LABS: Glucose, Whole Blood 200 mg/dL (60-115)
== END 2024-07-29 12:15 | disposition home or self-care (01) | DRG 750 ==
LOC: HO.ED 20:55 → HO.PM5 07-22 11:33
PROVIDERS: Emergency Medicine; Admitting Provider Psychiatry & Neurology Psychiatry; Emergency Provider Emergency Medicine Emergency Medical Services; Visit Provider Psychiatry & Neurology Psychiatry
DX: F25.1 Schizoaffective disorder, depressive type (principal); R45.851 Suicidal ideations; E11.9 Type 2 diabetes mellitus without complications; F14.10 Cocaine abuse, uncomplicated; T33.831A Superficial frostbite of right toe(s), initial encounter; X31.XXXA Exposure to excessive natural cold, initial encounter; F11.90 Opioid use, unspecified, uncomplicated; F43.10 Post-traumatic stress disorder, unspecified; F19.10 Other psychoactive substance abuse, uncomplicated; Z59.02 Unsheltered homelessness; Z87.891 Personal history of nicotine dependence; Z79.84 Long term (current) use of oral hypoglycemic drugs; Z79.899 Other long term (current) drug therapy
CPT/HCPCS: 36415; 80053; 80076; 80143; 80179; 80307; 81001; 82248; 82947; 83735; 85025; 93005; 99285; S9485

== ENCOUNTER → 2024-07-21 11:22 | Outpatient (BNV) | payer OTHER, SELFPAY | PROVIDERS: Emergency Provider Emergency Medicine; Visit Provider Internal Medicine Cardiovascular Disease | DX: R45.851 Suicidal ideations (principal) | CPT/HCPCS: 93010 ==

== ENCOUNTER → 2024-07-22 11:28 | Outpatient (BNV) | payer OTHER, SELFPAY | PROVIDERS: Admitting Provider Psychiatry & Neurology Psychiatry; Emergency Provider Emergency Medicine Emergency Medical Services; Visit Provider Psychiatry & Neurology Psychiatry | DX: F20.9 Schizophrenia, unspecified (principal); F14.10 Cocaine abuse, uncomplicated; F11.90 Opioid use, unspecified, uncomplicated; F43.11 Post-traumatic stress disorder, acute; E11.9 Type 2 diabetes mellitus without complications; Z59.00 Homelessness unspecified | CPT/HCPCS: 99232 ==

== ENCOUNTER → 2024-07-22 11:28 | Outpatient (BNV) | payer OTHER, SELFPAY | PROVIDERS: Admitting Provider Psychiatry & Neurology Psychiatry; Emergency Provider Emergency Medicine Emergency Medical Services; Visit Provider Surgery | DX: R23.4 Changes in skin texture (principal) | CPT/HCPCS: 97597; 99222 ==

== ENCOUNTER 2025-01-12 08:47 | Emergency (ER) | payer OTHER, SELFPAY ==
--- NOTE | 2025-01-12 | ECG_ITS ---
Test Reason : secone, c Blood Pressure : */* mmHG Vent. Rate : 58 BPM Atrial Rate : 58 BPM P-R Int : 136 ms QRS Dur : 98 ms QT Int : 460 ms P-R-T Axes : 59 27 46 degrees QTcB Int : 451 ms Sinus bradycardia Otherwise normal ECG When compared with ECG of 21-Jul-2024 11:22, No significant change was found Referred By: Howard Good Electronically Signed By: SHAE SHIPLEY
[2025-01-12 09:00] VITALS: BP 140/90; PULSE 60; O2SAT 100; BMI 25.8
--- NOTE | 2025-01-12 09:02 | ED_ITS ---
HPI - Psych General Chief Complaint: Psychiatric Symptoms Stated Complaint: WANTS TO HURT SELF, AUD VIKCY,OD LAST NIGHT PER EMSS Time Seen by Provider: 01/12/25 08:49 Source: patient, EMS, RN notes reviewed and old records reviewed Mode of arrival: EMS History of Present Illness ED Provider: Laura CARVAJAL Narrative: Patient is a 39-year-old male with history of schizophrenia, DM, OUD, cocaine abuse, cannabis abuse, PTSD presenting to the ED reporting suicidal ideation, auditory hallucinations. Reports smoking crack last night. Expressing vague plan to shoot himself. Denies current physical complaints. Denies HI, visual hallucinations. MD complaint: suicidal ideation, feels depressed and hallucinations Related Data Home Medications ?Medication ?Instructions ?Recorded ?Confirmed benztropine 0.5 mg tablet 0.5 mg PO BID 01/13/25 haloperidol 5 mg tablet 5 mg PO BID 01/13/25 hydroxyzine pamoate 50 mg capsule 50 mg PO TID 5 nicotine 14 mg/24 hr daily 1 patch topical DAILY 01/13 transdermal patch propranolol 10 mg tablet 10 mg PO BID 01/13/25 trazodone 50 mg tablet 50 mg PO BEDTIME 01/13/25 Previous Rx's ?Medication ?Instructions ?Recorded benztropine 1 mg tablet 1 mg PO BEDTIME #30 tabs clonidine HCl 0.1 mg tablet 0.1 mg PO BID #60 tabs glyburide 5 mg tablet 5 mg PO BIDWM #60 tabs 07/16 melatonin 3 mg tablet 6 mg (2 x 3 mg) PO BEDTIME P RN 07/16/24 sleep #60 tabs metformin 1,000 mg tablet 1,000 mg PO BID #60 tabs quetiapine 200 mg tablet 200 mg PO BEDTIME #30 tabs 0 07/16/24 docusate sodium 100 mg capsule 100 mg PO BID 30 days # 60 caps 07/29/24 Allergies Allergy/AdvReac Type Severity Reaction Status Date / Time codeine AdvReac Unknown Unknown Verified 01/12/25 09:06 Review of Systems 2 Review of Systems: as per hpi Yes all other systems are reviewed and are negative Constitutional: Constitutional: Reports as per HPI PMFSH Past Medical History Medical History (Updated 01/12/25 @ 16:09 by Graciela Sanchez NP) Eschar of toe Homeless Sleep apnea Medical clearance for psychiatric admission Routine history and physical examination of adult Cardiomyopathy Cocaine abuse Cannabis abuse Diabetes Schizophrenia, chronic condition Surgical History No pertinent past surgical history Family History Family History Other No family history of coronary artery disease Social History Social History Household Members: None Housing: Homeless Do you presently have visiting nurse or other home services: No Alcohol intake: current Alcohol intake frequency: 0-2 drinks per day Comment: 1:1 Patient Tobacco Use Status: Former Tobacco user Tobacco use type: Cigarette Cigarette Packs Per Day: 1 Cigarettes Per Day: 1 Smoked in Last 30 Days: Yes e-Cigarette/Vaping Use: Never Used Second Hand Smoke Exposure: Yes Use of substances other than those prescribed or required for medical reasons: Yes Substance Use Type: Crack/Cocaine Substance Use Frequency: Chronic Longstanding Last Used Substance: Hours (ago) Advance Directives: No Advance Directives Information Provided: No service: No Sexual orientation: Straight/Heterosexual Physical Exam 2 Vital Signs: Vital Signs: Last Vital Signs Temp 98.6 F 01/13/25 16:40 Pulse 90 01/13/25 16:40 Resp 18 01/13/25 16:40 BP 120/80 01/13/25 16:40 Pulse Ox 99 01/13/25 16:40 O2 Del Method Room Air 01/13/25 16:40 BMI result Body Mass Index 25.8 Vital signs have been reviewed and appear to be correct. Blood pressure normal. Heart rate normal. Respiratory rate normal. Temperature normal. Oxygen saturation normal. Const: General: cooperative, healthy appearing and no acute distress O rientation/consciousness: oriented to person, oriented to place, oriented to time and patient oriented x3 Limitations: no limitations HEENT: Head: Yes normocephalic and Yes atraumatic Ears: external ears normal General nose exam: Normal external nose present Face and sinus: Yes face symmetric Mouth: oropharynx normal and moist mucous membranes Throat: Yes uvula midline Eyes: Pupils: Equal, round and reactive pupils present Neck: Neck: Yes normal visual inspection and Yes supple Resp: Effort & Inspection: normal respiratory effort and able to speak in complete sentences Auscultation: clear to auscultation bilaterally Cardio: Rate: regular rate Rhythm: regular rhythm Heart sounds: S1 normal heart sound present and S2 normal heart sound present GI: Palpation (GI): Soft to palpation and nontender Auscultation: n ormoactive bowel sounds : General: Yes no CVA tenderness Back/Spine/Pelvis: Back: no CVA tenderness Skin: General skin exam: elasticity normal and turgor normal Neuro: General: oriented to person, oriented to place, oriented to time, patient oriented x3, moves all extremities, no focal motor deficits and CN's II- XI intact bilaterally Cranial nerves: Yes Equal, round and reactive pupils present Cognition (Neuro): normal cognition Extrem: General: Yes full ROM, Yes no pedal edema and Yes no calf tenderness Psych: Mental Status: mental status grossly normal Affect: Blunted affect present Attitude: cooperative Thought process: Normal thought process present Thought content: Suicidality present, no homicidality, Hallucination(s) present auditory; not visual and Depressive thoughts present Insight: Limited insight present (Psych) Judgement: Limited judgement present (Psych) Medical Decision Making Medical Decision Making [facility] Narrative: Patient is a 39-year-old male with history of schizophrenia, DM, OUD, cocaine abuse, cannabis abuse, PTSD presenting to the ED reporting suicidal ideation, auditory hallucinations. On exam patient is awake, A+Ox3, VS WNL, afebrile, normal neurological exam without focal deficits, physical exam findings as above. Given reported symptoms and physical exam findings, initial differential includes but is not limited to schizophrenia, depression, hallucinations, suicidal ideation, drug or alcohol intoxication. Plan for medical clearance then CARE team evaluation. Labs unremarkable, ethanol negative. UA and UDS pending. Per CARE team, patient too drowsy to engage in assessment at this time, will be deferred to when patient is more awake. 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 Will place patient on physician observation pending CARE eval at this time. UA without evidence of infection. UDS positive for fentanyl and cocaine. Differential Diagnosis Differential Diagnoses: The differential diagnosis associated with the presentation includes as per [facility] Admission/Observation Consideration of admission/observation: Escalation of care including admission/observation considered Consult Healthcare Provider Management of the patient was discussed with: Behavioral Health Provider Lab Data [facility] Lab Attestation statement: I reviewed the patient's lab results. as per mdm 01/12/25 13:30 01/12/25 13:30 Labs: Lab Results 01/12/25 01/12/25 01/12/25 Range/Units 10:08 13:30 17:00 WBC 6.6 (4.8-10.8) X10*3/uL RBC 5.28 D (4.60-5.80) X10*6/uL Hgb 13.4 L D (14.0-18.0) g/dl Hct 41.9 L D (42.0-52.0) % MCV 79.4 L (80.0-98.0) fL MCH 25.4 L (27.0-33.0) pg MCHC 32.0 (31.0-36.0) g/dl RDW 14.8 (11.0-16.0) % Plt Count 250 (160-400) X10*3/uL MPV 10.5 (9.4-12.4) fL Immature Gran % (Auto) 0.2 (0.0-0.4) % Neut % (Auto) 54.0 (45-73) % Lymph % (Auto) 37.6 (20-40) % [place] % (Auto) 6.5 (2-11) % Eos % (Auto) 1.2 (0-4) % Baso % (Auto) 0.5 (0-2) % Lymph # (Auto) 2.5 (1.2-4.9) X10*3/uL [place] # (Auto) 0.4 (0.1-1.2) X10*3/uL Eos # (Auto) 0.1 (0.0-0.4) X10*3/uL Baso # (Auto) 0.0 (0.0-0.2) X10*3/uL Abs Immat Gran (auto) 0.01 (0.00-0.03) X10*3/uL Absolute Neuts (auto) 3.6 (2.0-8.3) x10*3/uL Absolute Nucleated RBC 0.000 (0.0-0.012) X10*3/uL Nucleated RBC % (auto) 0.0 (0.0-0.2) /100WBC Sodium 138 (135-145) mmol/L Potassium 3.6 (3.3-5.1) mmol/L Chloride 103 (96-108) mmol/L Carbon Dioxide 27 (22-29) mmol/L Anion Gap 12 (12-20) BUN 14 (9-16) mg/dL Creatinine 1.29 (0.5-1.4) mg/dL Estim Creat Clear Calc 84.3 Estimated GFR > 60 Random Glucose 219 H (60-115) mg/dL Calcium 9.6 D (8.4-10.2) mg/dL Total Bilirubin 0.3 (0.0-1.0) mg/dL AST 26 (5-37) U/L ALT 29 (0-40) U/L Alkaline Phosphatase 56 (39-117) U/L Total Protein 7.6 (6.5-8.0) g/dL Albumin 4.4 (3.5-5.0) g/dL Urine Color Yellow Urine Appearance Clear Urine pH 6.0 (5.0-9.0) Ur Specific [place] 1.025 (1.005-1.025) Urine Protein Negative (Neg-Trace) mg/dL Urine Glucose (UA) >=1000 H (Negative) mg/dL Urine Ketones Negative (Negative) mg/dL Urine Blood Negative (Negative) Urine Nitrite Negative (Negative) Ur Leukocyte Esterase Negative (Negative) Urine RBC 0-2 (0-2) /HPF Urine WBC 0-5 (0-5) /HPF Ur Squamous Epith Cells 0-2 (0-2) /HPF Urine Bacteria None Seen (None Seen) Hyaline Casts 0-2 (0-2) /LPF Urine Opiates Screen Not Detected (Not Detect) Ur Buprenorphine Scrn Not Detected (Not Detect) ng/mL Ur Oxycodone Screen Not Detected (Not Detect) ng/mL Urine Methadone Screen Not Detected (Not Detect) ng/mL Urine Fentanyl Screen POSITIVE H (Not Detect) Ur Barbiturates Screen Not Detected (Not Detect) Ur Phencyclidine Scrn Not Detected (Not Detect) Ur Amphetamines Screen Not Detected (Not Detect) U Benzodiazepines Scrn Not Detected (Not Detect) Urine Cocaine Screen POSITIVE H (Not Detect) U Marijuana (THC) Screen Not Detected (Not Detect) Ethyl Alcohol < 10 mg/dL COVID-19 ([facility]) Negative (Negative) COVID-19 Clin Com See Note External Record Review External record reviewed: Inpatient record, Office record and Outpatient record Discharge Plan Discharge Clinical Impression: Schizophrenia, chronic condition, Suicide ideation Patient Disposition: Xfer Psychiatric Hosp Transfer Details: TO [facility] [address], [facility], [id number] Prescriptions: No Action docusate sodium 100 mg Capsule 100 mg PO BID 30 Days Qty: 60 0RF benztropine 0.5 mg tablet 0.5 mg PO BID nicotine 14 mg/24 hr patch 24 hour 1 patch topical DAILY haloperidol 5 mg tablet 5 mg PO BID trazodone 50 mg tablet 50 mg PO BEDTIME hydroxyzine pamoate 50 mg capsule 50 mg PO TID propranolol 10 mg tablet 10 mg PO BID clonidine HCl 0.1 mg Tablet 0.1 mg PO BID Qty: 60 0RF Protocol: Hold for SBP< HOLD for SBP < : 90 glyburide 5 mg Tablet 5 mg PO BIDWM Qty: 60 0RF quetiapine 200 mg Tablet 200 mg PO BEDTIME Qty: 30 0RF benztropine 1 mg Tablet 1 mg PO BEDTIME Qty: 30 0RF melatonin 3 mg Tablet 6 mg PO BEDTIME PRN (Reason: sleep) Qty: 60 0RF metformin 1,000 mg Tablet 1,000 mg PO BID Qty: 60 0RF Interventions: [place]-Suicide Risk Severity Scale Last Done: 01/12/25 22:53 Discharge Date/Time: 01/13/25 16:55 Print Language: Yakut
[2025-01-12 09:25] VITALS: BP 143/81; PULSE 81; RESP 18; TEMP 36.4; O2SAT 94
--- NOTE | 2025-01-12 10:14 | PC.NURSE ---
Addendum entered by Airam Urena RN 01/12/25 10:16: Patient is a 39-year-old male with history of schizophrenia, PTSD, opioid use disorder and cocaine use disorder who was recently discharged from on 07/16 who self presents s/p overdose last night and vague SI statement with thoughts of shooting self . Patient is somewhat resistant to interview, lying in bed and hesitant to answer questions. Patient is homeless, overwhelmed and in despair and started feeling suicidal (though he made no attempt) so he self presented. Upon presentation, patient still appeared under the influence at this time. Pending CARE team eval Original Note: Medical History Eschar of toe Homeless Sleep apnea Medical clearance for psychiatric admission Routine history and physical examination of adult Cardiomyopathy Cocaine abuse Cannabis abuse Diabetes Schizophrenia, chronic condition
--- OUTSIDE RECORDS SUMMARY | 2025-01-12 10:53 | XMS_ITS | Clinical Summary ---
Author Organization [facility] Address [address] [place] [address] Care Team Providers Care Sports Director Name Role Phone Dayne Dubose Primary Care Provider [phone] Allergies Active Allergy Reactions Criticality Noted Date Comments Codeine Unknown Medium 06/22/2024 Medications metFORMIN (GLUCOPHAGE) 1,000 mg tablet Take 1,000 mg by mouth 2 times a day with meals. 03/03/2024 Active haloperidoL (HALDOL) 10 mg tablet Take 10 mg by mouth 2 times a day. 03/03/2024 Active acetaminophen (TYLENOL) 325 mg tablet Take 2 tablets (650 mg total) by mouth every 6 hours as needed for headache, pain or fever. 30 tablet 06/25/2024 Active benztropine (COGENTIN) 0.5 mg tablet Take 1 tablet (0.5 mg total) by mouth 2 times a day. 30 tablet 06/25/2024 Active folic acid (FOLVITE) 1 mg tablet Take 1 tablet (1 mg total) by mouth once a day for 1 dose. 1 tablet 06/26/2024 Active thiamine HCl (VITAMIN B1) 100 mg tablet Take 1 tablet (100 mg total) by mouth once a day. 30 tablet 06/25/2024 Active Active Problems Problem Noted Date Diagnosed Date [...] drug rehab program before being discharged to [facility], more recently he is homeless and unable [...] drug rehab program before being discharged to [facility], more recently he is homeless and unable [...] fluffs between toes and loose Kerlix wraps -balance wheel screw hole tapper consulted Assessment & Plan (06/23/2024 2:36 PM [...] disorder (alcohol, cocaine, opioids), who presented to [facility] ED on 06/22/2024 after being found [...] disorder (alcohol, cocaine, opioids), who presented to [facility] ED on 06/22/2024 after being found [...] 72 06/25/2024 4:25 PM EST Temperature 37 C (98.6 F) 06/25/2024 2:13 PM EST Respiratory Rate 16 [...] 2 - PCV) 05/24/2012 05/24/2011 COVID-19 Vaccine (2023-2 5 season) 2024 06/21/2021, 09/10/2020 Alcohol/Substance Use Screening 05/21/2024 Depression Screening and Follow-Up 05/21/2024 Social Drivers of Health Natalia ual Screening 05/21/2024 Hemoglobin A1C 12/21/2024 06/23/2024 Influenza Vaccine (#1) 2025 7, 03/17/2011, 02/18/2011 Basic Metabolic Panel 06/25/2025 06/25/2024 , 06/24/2024, 06/23/2024, Additional history exists DTaP,Tdap,and Td Vaccines (4 - Td or Tdap) 06/22/2034 06/22/2024, 08/06/2022, 05/24/2011 RSV Vaccine (60+ years old a nd patients) (1 - 1-dose 75+ series) 02/04/2060 HIV Screening Completed 06/23/2024 Hepatitis C Screening Completed 06/23/2024 Procedures * Due to [place] state law, this organization might not be sharing negative HIV tests. Procedure Name Priority Date/Time Associated Diagnosis Comments BASIC METABOLIC PANEL Routine 06/25/2024 6:41 AM EST HEMOGLOBIN A1C Routine 06/23/2024 7:46 AM EST HEPATITIS C ANTIBODY W/REFLEX TO HCV RNA, QUANTITATIVE PCR Routine 06/23/2024 7:44 AM EST from Last 3 Months or Most Recently Relevant to Health Maintenance Results * Due to [place] state law, this organization might not be sharing negative HIV tests. * (ABNORMAL) Basic metabolic panel (06/25/2024 6:41 AM EST) NA 140 135 - 145 mmol/L 06/25/2024 8:07 AM EST [facility] K 4.1 3.5 - 5.3 mmol/L 06/25/2024 8:07 AM EST [facility] Cl 103 98 - 107 mmol/L 06/25/2024 8:07 AM EST [facility] CO2 26 22 - 32 mmol/L 06/25/2024 8:07 AM EST [facility] BUN 11 7 - 23 mg/dL 06/25/2024 8:07 AM EST [facility] Creatinine 0.97 0.60 - 1.30 mg/dL 06/25/2024 8:07 AM EST [facility] Glucose 210(H) 65 - 99 mg/dL 06/25/2024 8:07 AM EST [facility] Calcium 9.2 8.6 - 10.5 mg/dL 06/25/2024 8:07 AM EST [facility] Anion Gap 11 5 - 15 06/25/2024 8:07 AM EST [facility] eGFR >90 >=60 mL/min/1. 73m2 06/25/2024 8:07 AM EST [facility] Comment:The estimated glomer ular [...] MD LAB BLOOD ORDERABLES Fin al Result [facility] [address] [place] [address], [place] * (ABNORMAL) Hemoglobin A1c (06/23/2024 7:46 AM EST) Hemoglobin A1C 7.9(H) <5.7 % of total Hgb 06/23/2024 12:45 PM EST [facility] Comment: For someone without known diabetes, a [...] A1c for diagnosis of diabetes for children. eAG (MG/DL) 180 mg/dL 06/23/2024 12:45 PM EST [facility] eAG (MMOL/L) 10.0 mmol/L 06/23/2024 12:45 PM EST [facility] Blood Structure of peripheral vein / Unknown Venipuncture / Unknown 06/23/2024 7:46 AM EST 06/23/2024 7:46 AM EST Narrative [facility] - 06/23/2024 12:45 PM EST [facility] Received Date: Alex Brand MD LAB BLOOD ORDERABLES Fin al Result [facility] [address], [place] [address], [facility] [address], [place] [address], [place] [phone] * Hepatitis C Antibody w/Reflex to HCV RNA, Quantitative PCR (06/23/2024 7:44 AM EST) Hepatitis C Antibody NON-REACT ZAINA NON-REACT ZAINA 06/23/2024 9:10 PM EST [facility] Comment: HCV antibody was non-reactive. There is no laboratory evidence of HCV infection. In most cases, no further action is required. However, if recent HCV exposure is suspected, a test for HCV RNA (test code 65484) is suggested. For additional information please refer to http://education.Ex[employer]ics/faq/YNZ55i7 (This link is being provided for informational/ educational purposes only.) Blood Structure of peripheral vein / Unknown Venipuncture / Unknown 06/23/2024 7:44 AM EST 06/23/2024 7:45 AM EST Narrative [facility] - 06/23/2024 9:10 PM EST [facility] Received Date: Alex Brand MD LAB BLOOD ORDERABLES Fin al Result [facility] [address], [place] [address], [place] [phone] [facility] [address], [place] [address], from Last 3 Months or Most Recently Relevant to Health Maintenance Insurance [facility] MEDICAID Advance Directives * Full Code (Latest Code Status on File) Date Activated Date Inactivated Comments 06/22/2024 2:22 PM 06/25/2024 11:13 PM Care Teams Sports Director Relationship Specialty Start Date End Date Dayne Dubose [address] [place] [address] [phone] PCP - General 06/25/24
--- OUTSIDE RECORDS SUMMARY | 2025-01-12 10:54 | XMS_ITS | Patient Health Record ---
Author Organization [facility] Address [address], [place] [id number] Care Team Providers Care Funeral Director/Embalmer/Owner Name Role Phone Parrish RAEANN Nayak Primary Care Provider Alexandr Plunkett Unavailable [phone] Allergies Allergen (clinical drug ingredient) Drug/Non Drug [...] Status W/U Status Risk Notes Problem Obesity (697840681) Obesity, BMI 30-39.9 (278.00) Active confirmed Problem Tobacco use (249265566) Tobacco use disorder (305.1) Active confirmed Problem Chronic mental disorder (126409909) MENTAL DISOR NEC OTH DIS (294.8) Active confirmed Problem Nondependent alcohol abuse (559034919) ALCOHOL ABUSE-UNSPEC (305.00) Active confirmed Problem Pneumococcal vaccine (108331020) Pneumococcal vaccine (V03.82) Active confirmed Plan Of Treatment No Information Insurance Providers Payer Name Payer Address Payer Phone Subscriber Number Group Number Insured Name Patient Relationship to Insured Coverage Start Date Coverage End Date [place] Medicaid Standard [address] [place] [address] [phone] [id number] Luan Blanton Self - patient is the insured Medical (General) History Medical History History ICD Code depression Hospitalization History Reason Date(Month/Year) [facility] 2009 [facility] 2009
[2025-01-12 11:08] LABS: COVID-19 Test Negative (Negative); IDNOW Serial# 55D5AD1C
[2025-01-12 13:36] LABS: MANUAL DIFF FLAG NO
[2025-01-12 13:41] LABS: Hematocrit 41.9 % (42.0-52.0); Hemoglobin 13.4 g/dl (14.0-18.0); Imm Gran Abs Auto 0.01 X10*3/uL (0.00-0.03); Imm Gran Pct Auto 0.2 % (0.0-0.4); Lymphocytes Absolute Auto 2.5 X10*3/uL (1.2-4.9); Mean Corpuscular HGB Conc 32.0 g/dl (31.0-36.0); Mean Corpuscular Hemoglobin 25.4 pg (27.0-33.0); Mean Corpuscular Volume 79.4 fL (80.0-98.0); NRBC Abs Auto 0.000 X10*3/uL (0.0-0.012); NRBC Pct Auto 0.0 /100WBC (0.0-0.2); Platelet Count 250 X10*3/uL (160-400); Red Blood Count 5.28 X10*6/uL (4.60-5.80); White Blood Count 6.6 X10*3/uL (4.8-10.8)
[2025-01-12 13:55] LABS: Alanine Aminotransferase 29 U/L (0-40); Albumin Level 4.4 g/dL (3.5-5.0); Alkaline Phosphatase 56 U/L (39-117); Anion Gap 12 (12-20); Aspartate Amino Transferase 26 U/L (5-37); Blood Urea Nitrogen 14 mg/dL (9-16); Calcium 9.6 mg/dL (8.4-10.2); Carbon Dioxide 27 mmol/L (22-29); Chloride 103 mmol/L (96-108); Creatinine Clr Calc Pharmacy 84.3; Estimated Glomerular Filt Rate > 60; Potassium 3.6 mmol/L (3.3-5.1); Sodium 138 mmol/L (135-145); Total Protein 7.6 g/dL (6.5-8.0)
[2025-01-12 17:12] LABS: Appearance Urine Clear; Glucose Urine UA >=1000 mg/dL (Negative); PH 6.0 (5.0-9.0); Specific Gravity - Urine 1.025 (1.005-1.025); UMIC TRIGGER UACC YES
[2025-01-12 17:17] LABS: Cannabinoid Screen Urine Not Detected (Not Detect)
[2025-01-12 17:23] VITALS: BP 133/90; PULSE 83; RESP 18; O2SAT 100
--- NOTE | 2025-01-13 00:11 | PC.NURSE ---
Pt ambulated to and from bathroom without issue. Pt requested food and drink and provided with both. Pt resting in bed now. Respirations non-labored and even.
[2025-01-13 07:06] VITALS: BP 118/78; PULSE 92; RESP 20; TEMP 37.7; O2SAT 99
--- NOTE | 2025-01-13 12:27 | PC.NURSE ---
assumed care of patient at 0700, patient is awake and alert, no signs of acute distress. patient ambulates to and from the bathroom with steady gait, calm and cooperative
[2025-01-13 16:40] VITALS: BP 120/80; PULSE 90; RESP 18; TEMP 37; O2SAT 99
== END 2025-01-13 16:55 ==
PROVIDERS: Registered Nurse Emergency; Emergency Provider Emergency Medicine
DX: F33.1 Major depressive disorder, recurrent, moderate (principal); R45.851 Suicidal ideations; R44.0 Auditory hallucinations; F14.951 Cocaine use, unspecified with cocaine-induced psychotic disorder with hallucinations; R00.1 Bradycardia, unspecified; Z51.81 Encounter for therapeutic drug level monitoring; Z79.899 Other long term (current) drug therapy; Z87.891 Personal history of nicotine dependence; Z03.818 Encounter for observation for suspected exposure to other biological agents ruled out
CPT/HCPCS: 80053; 80307; 81001; 85025; 87635; 93005; 99285; S9485

== ENCOUNTER → 2025-01-12 09:07 | Outpatient (BNV) | payer OTHER, SELFPAY | PROVIDERS: Emergency Provider Emergency Medicine; Visit Provider Internal Medicine | DX: R00.1 Bradycardia, unspecified (principal) | CPT/HCPCS: 93010 ==